=== PATIENT | female | born 1930 | race Caucasian/White ===

== ENCOUNTER 2017-03-06 09:42 | Inpatient (IN) | payer OTHER, MEDICARE ==
[~2017-03-06] VITALS: Ht 160 cm; Wt 68.1 kg
[~2017-03-06 09:42] MED LIST: ASPI81TA28 PO; CALC-51 PO; CITA20TA4 PO; DENO60SO SQ; INSU1INJ INJ; LEVE500T PO; LPR25 PO; LSN40 PO; MULT-506 PO; NRV5 PO; POLY335019 PO; POLY99.02 OP; SIMV20TA2 PO; VTMB12100 PO; ZOLP5TAB PO
[2017-03-06] MEDS ORDERED: LIDOCAINE/EPINEPH/TETRACAINE 1 EA SYR EXT STA (09:50)
[2017-03-06] MEDS ORDERED: SODIUM CHLORIDE 0.9% 1000ML 1,000 ML IV STA (09:50)
--- NOTE | 2017-03-06 09:52 | EMERGENCY ROOM VISIT NOTE ---
History Report prepared by Dori: Carlene Foote Under the Supervision of: Dr. Tomasz Ch D.O. First contact with patient: 09:43 Chief Complaint: HIP PAIN Stated Complaint: HIP INJURY History of Present Illness The patient is an 86 year old female who presents to the Emergency Room with complaints of constant pain from injury to right hip occurring 1 hour prior to arrival. The patient was taking the trash out and walking with her can when she fell in her garage. She states that she was laying on the ground for about 1 hour before her family found her. The patient states that she did hit her head. She notes no pain to her left leg but pain with rotating her right leg. The patient denies a headache, neck pain, back pain or abdominal pain. She was given Fentanyl and Zofran en route to the ED. 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 A total of 10 systems reviewed and were otherwise negative. Past Medical & Surgical Medical Problems: (1) Anxiety disorder (2) Cerebrovascular disease (3) CKD (chronic kidney disease) stage 3, GFR 30-59 ml/min (4) Depression (5) DM type 2 (diabetes mellitus, type 2) (6) Hip fracture, right (7) Hyperlipidemia (8) Hypertension (9) Osteoporosis (10) PVD (peripheral vascular disease) (11) Seizure disorder (12) Stroke-like symptom (13) Unresponsiveness Surgical Problems: (1) History of total hip replacement (2) Hx of cataract surgery (3) S/P tonsillectomy and adenoidectomy (4) Status post appendectomy (5) Status post cholecystectomy Family History FH: lung cancer BROTHER FH: stroke FATHER Oral cancer MOTHER Social History Smoking Status: Unknown if Ever Smoked Alcohol Use: none Drug Use: none Marital Status: Housing Status: lives with family Occupation Status: retired Current/Historical Medications Scheduled Amlodipine Besylate (Amlodipine Besylate), 5 MG PO DAILY Artificial Tears Oph Oint (Lacri-Lube Sop Oph Oint), 0.25-0.5 INCH OP QID Aspirin (Aspirin Ec), 81 MG PO DAILY Calcium Carbonate-Vitamin D (Calcium), 1 TAB PO BID Citalopram Hydrobromide (Citalopram Hydrobromide), 20 MG PO HS Cyanocobalamin (Vitamin B-12), 100 MCG PO DAILY Denosumab (Prolia), 60 MG SQ [id number] Insulin Aspart 70/30 (Novolog Mix 70/30), 14 UNITS SC QAM Insulin Aspart 70/30 (Novolog Mix 70/30), 8 UNITS SC QPM Levetiractam (Levetiracetam), 750 MG PO BID Lisinopril (Lisinopril), 5 MG PO DAILY Metoprolol Tartrate (Lopressor), 25 MG PO DAILY Multivitamin (Multivitamin), 1 TAB PO DAILY Simvastatin (Zocor), 20 MG PO QPM Scheduled PRN Polyethylene Glycol 3350 (Miralax), 17 GM PO BID PRN for Constipation Zolpidem Tartrate (Ambien), 5 MG PO HS PRN for Sleep Allergies Coded Allergies: Amoxicillin (Verified Allergy, Severe, CVA SYMPTOMS, 03/06/17) Penicillins (Unverified Allergy, Unknown, POSS CX OF CVA, 03/06/17) Risedronate (Unverified Allergy, Unknown, UNKNOWN, 03/06/17) Diphenhydramine (Unverified Adverse Reaction, Unknown, N&V, 03/06/17) Prednisone (Unverified Adverse Reaction, Unknown, HIGH BS, 03/06/17) Uncoded Allergies: TYRESE FACE CREAM (Allergy, Unknown, SEVERE REDNESS, 05/03/07) Physical Exam Vital Signs Date Time Temp Pulse Resp B/P Pulse Ox O2 Delivery O2 Flow Rate FiO2 03/06/17 13:33 63 17 122/74 93 03/06/17 12:31 63 17 122/74 93 Nasal Cannula 3.0 03/06/17 11:45 95 Nasal Cannula 2.0 03/06/17 10:49 58 15 155/59 95 Nasal Cannula 2.0 03/06/17 10:28 57 03/06/17 09:56 94 Nasal Cannula 3.0 03/06/17 09:50 36.5 58 19 173/72 88 Room Air Physical Exam GENERAL: Patient is awake, alert, somewhat anxious and uncomfortable appearing. EYES: The conjunctivae are clear. The pupils are constricted and minimally reactive to light. EARS, NOSE, MOUTH AND THROAT: The nose is without any evidence of any deformity. Mucous membranes are moist tongue is midline NECK: The neck is nontender and supple. RESPIRATORY: Normal respiratory effort is noted there is no evidence of wheezing rhonchi or rales CARDIOVASCULAR: Regular rate and rhythm noted there no murmurs rubs or gallops normal S1 normal S2 GASTROINTESTINAL: The abdomen is soft. Bowel sounds are present in all quadrants. Abdomen is nontender MUSCULOSKELETAL/EXTREMITIES: There is no evidence of gross deformity full range of motion is noted in the shoulders. Shortening of right lower extremity but significant decrease in movement of hip. SKIN: There is no obvious evidence of any rash. There are no petechiae, pallor or cyanosis noted. NEUROLOGIC: Patient is awake alert and oriented x3 Medical Decision & Procedures ER Provider Diagnostic Interpretation: X-ray results as stated below per interpretation by me and the radiologist. CHEST ONE VIEW PORTABLE CLINICAL HISTORY: Fall. COMPARISON STUDY: Chest radiograph May 24, 2016. FINDINGS: Severe degenerative changes of the right shoulder are noted. No pneumothorax or pleural effusion is present. Mild cardiomegaly is unchanged. There is no evidence of pulmonary edema. A moderate sized suspected hiatal hernia is present. Skin folds project over the right hemithorax. There is no evidence of pulmonary edema. Linear left midlung opacity suggest atelectasis. IMPRESSION: No acute cardiopulmonary findings. Electronically signed by: Tayo Arias M.D. 03/06/2017 10:56 AM Dictated Date/Time: 03/06/2017 10:55 AM RIGHT PELVIS/UNILATERAL HIP 2-3VIEWS CLINICAL HISTORY: Fall. Right hip injury. COMPARISON: Abdominal series November 30, 2016. FINDINGS: Alignment of the total left hip arthroplasty is anatomic. There is no periprosthetic fracture. There is a 6.5 x 4.4 cm heavily calcified abnormality within the pelvis which is unchanged since prior exam and likely reflects a calcified fibroid. Left inferior and superior pubic ring healed fractures are noted. There is an acute, comminuted displaced right femoral neck fracture. IMPRESSION: Acute displaced comminuted right femoral neck fracture. Electronically signed by: Tayo Arias M.D. 03/06/2017 10:54 AM Dictated Date/Time: 03/06/2017 10:53 AM Laboratory Results 03/06/17 10:15 Red Blood Count 4.43, Mean Corpuscular Volume 92.6, Mean Corpuscular Hemoglobin 31.4, Mean Corpuscular Hemoglobin Concent 33.9, Mean Platelet Volume 9.3, Neutrophils (%) (Auto) 78.2, Lymphocytes (%) (Auto) 13.8, Monocytes (%) (Auto) 5.2, Eosinophils (%) (Auto) 2.0, Basophils (%) (Auto) 0.2, Neutrophils # (Auto) 12.91, Lymphocytes # (Auto) 2.28, Monocytes # (Auto) 0.86, Eosinophils # (Auto) 0.33, Basophils # (Auto) 0.04 03/06/17 10:15 Test 03/06/17 10:00 03/06/17 10:15 03/06/17 13:33 Urine Color YELLOW Urine Appearance CLEAR (CLEAR) Urine pH 8.0 (4.5-7.5) Urine Specific [place] 1.013 (1.000-1.030) Urine Protein 2+ (NEG) Urine Glucose (UA) NEG (NEG) Urine Ketones NEG (NEG) Urine Occult Blood TRACE (NEG) Urine Nitrite NEG (NEG) Urine Bilirubin NEG (NEG) Urine Urobilinogen NEG (NEG) Urine Leukocyte Esterase NEG (NEG) Urine WBC (Auto) 0 /hpf (0-5) Urine RBC (Auto) 0-4 /hpf (0-4) Urine Hyaline Casts (Auto) 1-5 /lpf (0-5) Urine Epithelial Cells (Auto) 10-20 /lpf (0-5) Urine Bacteria (Auto) NEG (NEG) White Blood Count 16.52 K/uL (4.8-10.8) Red Blood Count 4.43 M/uL (4.2-5.4) Hemoglobin 13.9 g/dL (12.0-16.0) Hematocrit 41.0 % (37-47) Mean Corpuscular Volume 92.6 fL (80-100) Mean Corpuscular Hemoglobin 31.4 pg (25-34) Mean Corpuscular Hemoglobin Concent 33.9 g/dl (32-36) Platelet Count 242 K/uL (130-400) Mean Platelet Volume 9.3 fL (7.4-10.4) Neutrophils (%) (Auto) 78.2 % Lymphocytes (%) (Auto) 13.8 % Monocytes (%) (Auto) 5.2 % Eosinophils (%) (Auto) 2.0 % Basophils (%) (Auto) 0.2 % Neutrophils # (Auto) 12.91 K/uL (1.4-6.5) Lymphocytes # (Auto) 2.28 K/uL (1.2-3.4) Monocytes # (Auto) 0.86 K/uL (0.11-0.59) Eosinophils # (Auto) 0.33 K/uL (0-0.5) Basophils # (Auto) 0.04 K/uL (0-0.2) RDW Standard Deviation 46.0 fL (36.4-46.3) RDW Coefficient of Variation 13.5 % (11.5-14.5) Immature Granulocyte % (Auto) 0.6 % Immature Granulocyte # (Auto) 0.10 K/uL (0.00-0.02) Prothrombin Time 10.5 SECONDS (9.0-12.0) Prothromb Time International Ratio 1.0 (0.9-1.1) Activated Partial Thromboplast Time 23.2 SECONDS (21.0-31.0) Partial Thromboplastin Ratio 0.9 Anion Gap 5.0 mmol/L (3-11) Est Creatinine Clear Calc Drug Dose 33.4 ml/min Estimated GFR () 52.3 Estimated GFR (Non- 45.1 BUN/Creatinine Ratio 22.8 (10-20) Calcium Level 8.1 mg/dl (8.5-10.1) Total Bilirubin 0.7 mg/dl (0.2-1) Direct Bilirubin 0.2 mg/dl (0-0.2) Aspartate Amino Transf (AST/SGOT) 25 U/L (15-37) Alanine Aminotransferase (ALT/SGPT) 21 U/L (12-78) Alkaline Phosphatase 72 U/L (45-117) Troponin I < 0.015 ng/ml (0-0.045) Total Protein 6.9 gm/dl (6.4-8.2) Albumin 3.4 gm/dl (3.4-5.0) Laboratory results per my review. Medications Administered Medications (Trade) Dose Ordered Sig/Zaina Route Start Time Stop Time Status Last Admin Dose Admin Sodium Chloride (Nss 1000ml) 1,000 ml @ 125 mls/hr Q8H STAT IV 03/06/17 09:50 03/06/17 17:49 03/06/17 10:13 125 MLS/HR Fentanyl Citrate (Fentanyl Inj) 50 mcg Q15M PRN IV 03/06/17 10:00 03/20/17 09:59 03/06/17 12:37 50 MCG Tetracaine/ Epinephrine/ Lidocaine (L.e.t. Gel 4%/ 1:100/0.5%) 1 ea UD STAT EXT 03/06/17 09:50 03/06/17 09:53 DC 03/06/17 10:16 1 EA Diphtheria/ Pertussis/Tetanus Vacc 0.5 ml 0.5 ml ONCE ONCE IM. 03/06/17 10:00 03/06/17 10:01 DC 03/06/17 10:48 0.5 ML Doxycycline Hyclate/Dextrose (Vibramycin IV/ D5 100ml) 110 ml @ 50 mls/hr 1230 ONCE IV 03/06/17 12:30 03/06/17 14:41 03/06/17 12:31 50 MLS/HR ECG Indication: other (fall) Rate (beats per minute): 58 Rhythm: sinus bradycardia Findings: nonspecific-ST abn, no ectopy Change: Decreased rate otherwise no change since May ED Course 0946: The patient was evaluated in room B8. A complete history and physical examination were performed. 0950: L.e.t Gel 4% 1:100/0.5% 1 ea EXT, Sodium Chloride 1,000 ml @ 125 mls/hr IV. 1000: Adacel Inj 0.5 ml IM, Fentanyl Inj 50 mcg IV. 1039: I spoke with the patient's [id number]. 1048: I discussed the patient's case with GRACE Lees - [facility]. The patient will be evaluated for further management. 1053: Upon reevaluation, the patient is hemodynamically stable. I discussed results and treatment plan with her. She verbalizes agreement and understanding. I spoke with GRACE Lees of the [facility]. The patient will be evaluated for further management and care. Medical Decision Differential diagnosis: Etiologies such as fracture, dislocation, intra-abdominal, pneumothorax, intrathoracic , intracranial, neurologic, as well as other traumatic pathologies were entertained. Nursing notes reviewed. Additional history is obtained from the prehospital personnel. The patient is an 86-year-old female who states that she was going into her garage with her cane to take out her garbage when she fell landing on her right side. The patient sustained a skin tear to her right hand as well as an injury to her right hip. The patient's x-rays did reveal signs of a displaced right femoral neck fracture. The patient was treated with IV pain medication in the emergency department. She was feeling much better on subsequent reevaluation. I discussed the patient's laboratory and radiographic studies with her and her family members. I also discussed her case with the on-call [facility] hospitalist service. They've agreed to evaluate the patient in the emergency department for further management and disposition. The patient was found have some degree of bradycardia on EKG. There was no definite syncopal episode but she may require further medical clearance prior to operative management. Consults Time Called: 1047 Consulting Physician: OMARI Lees Returned Call: [phone] I discussed the patient's case with GRACE Lees. The patient will be evaluated for further management. Impression Primary Impression: Fall Additional Impressions: right comminuted femoral neck fracture Skin tear of right hand without complication Bradycardia Scribe Attestation The scribe's documentation has been prepared under my direction and personally reviewed by me in its entirety. I confirm that the note above accurately reflects all work, treatment, procedures, and medical decision making performed by me. Departure Information Dispostion Being Evaluated By Hospitalist Prescriptions Metoprolol Tartrate (LOPRESSOR) 25 Mg Tab 25 MG PO DAILY, #60 TAB Prov: Marie Morgan PA-C 03/06/17 Amlodipine Besylate (Amlodipine Besylate) 5 Mg Tab 5 MG PO DAILY, #30 TAB Prov: Marie Morgan PA-C 03/06/17 Referrals Molly Goldstein M.D. (PCP) Problem Qualifiers Primary Impression: Fall Encounter type: initial encounter Qualified Codes: W19.XXXA - Unspecified fall, initial encounter Additional Impressions: Skin tear of right hand without complication Encounter type: initial encounter Qualified Codes: S61.411A - Laceration without foreign body of right hand, initial encounter
[2017-03-06] MEDS ORDERED: DIPHTHERIA/TETANUS/PERTUSSIS 0.5 ML SYR/VIAL IM. ONE (10:00)
[2017-03-06] MEDS: FENTANYL CITRATE INJ 50 MCG/1 ML 2 ML VIAL IV PRN ×3 (10:11→12:37)
[2017-03-06 10:27] LABS: BASO % 0.2 %; BASO ABS # 0.04 K/uL (0-0.2); COMPLETE YES; IG% 0.6 %; LYMPH % 13.8 %; LYMPH ABS # 2.28 K/uL (1.2-3.4); MEAN CELL VOLUME 92.6 fL (80-100); MEAN CORPUSCULAR HEMOGLOBIN 31.4 pg (25-34); MEAN CORPUSCULAR HGB CONC 33.9 g/dl (32-36); MEAN PLATELET VOLUME 9.3 fL (7.4-10.4); MONO % 5.2 %; NEUT % 78.2 %; PLATELET COUNT 242 K/uL (130-400); RED BLOOD COUNT 4.43 M/uL (4.2-5.4); WHITE BLOOD COUNT 16.52 K/uL (4.8-10.8)
[2017-03-06 10:30] LABS: URINE APPEARANCE CLEAR (CLEAR); URINE BILIRUBIN NEG (NEG); URINE COLOR YELLOW; URINE NITRITE NEG (NEG); URINE SPECIFIC GRAVITY 1.013 (1.000-1.030); UROBILINOGEN NEG (NEG); ZZURINE CULT IF INDIC CATH NO
[2017-03-06 10:43] LABS: ALT/SGPT 21 U/L (12-78); AST/SGOT 25 U/L (15-37); BLOOD UREA NITROGEN 25 mg/dl (7-18); BUN/CREATININE RATIO 22.8 (10-20); CALCIUM 8.1 mg/dl (8.5-10.1); CARBON DIOXIDE 30 mmol/L (21-32); CHLORIDE 103 mmol/L (98-107); GLUCOSE 219 mg/dl (70-99); POTASSIUM 4.4 mmol/L (3.5-5.1); SODIUM 138 mmol/L (136-145)
[2017-03-06 10:46] LABS: MANUAL MICROSCOPIC REQUIRED? NO; REVIEW REQ? NO
[2017-03-06 10:47] LABS: PARTIAL THROMBOPLASTIN RATIO 0.9; PROTHROMBIN TIME (PATIENT) 10.5 SECONDS (9.0-12.0)
[2017-03-06 10:47] LABS: SULFASALICYLIC ACID POS (NEG)
[2017-03-06 10:48] LABS: ALKALINE PHOSPHATASE 72 U/L (45-117)
--- NOTE | 2017-03-06 10:56 | DIAGNOSTIC IMAGING REPORT ---
RIGHT PELVIS/UNILATERAL HIP 2-3VIEWS CLINICAL HISTORY: Fall. Right hip injury. COMPARISON: Abdominal series November 30, 2016. FINDINGS: Alignment of the total left hip arthroplasty is anatomic. There is no periprosthetic fracture. There is a 6.5 x 4.4 cm heavily calcified abnormality within the pelvis which is unchanged since prior exam and likely reflects a calcified fibroid. Left inferior and superior pubic ring healed fractures are noted. There is an acute, comminuted displaced right femoral neck fracture. IMPRESSION: Acute displaced comminuted right femoral neck fracture. Electronically signed by: Tayo Arias M.D. 03/06/2017 10:54 AM Dictated Date/Time: 03/06/2017 10:53 AM
--- NOTE | 2017-03-06 10:58 | DIAGNOSTIC IMAGING REPORT ---
CHEST ONE VIEW PORTABLE CLINICAL HISTORY: Fall. COMPARISON STUDY: Chest radiograph May 24, 2016. FINDINGS: Severe degenerative changes of the right shoulder are noted. No pneumothorax or pleural effusion is present. Mild cardiomegaly is unchanged. There is no evidence of pulmonary edema. A moderate sized suspected hiatal hernia is present. Skin folds project over the right hemithorax. There is no evidence of pulmonary edema. Linear left midlung opacity suggest atelectasis. IMPRESSION: No acute cardiopulmonary findings. Electronically signed by: Tayo Arias M.D. 03/06/2017 10:56 AM Dictated Date/Time: 03/06/2017 10:55 AM
[2017-03-06] MEDS ORDERED: ARTIOIN OP (11:03)
[2017-03-06] MEDS ORDERED: LANCETS (11:03)
[2017-03-06] MEDS ORDERED: DENO60SO (11:03)
[2017-03-06] MEDS ORDERED: [UNRECOGNIZED DRUG - SUPPLY] (11:03)
[2017-03-06 11:45] VITALS: O2SAT 95; Ht 160 cm; Wt 68.1 kg
[2017-03-06] MEDS ORDERED: D5W AND NSS 1,000 ML IV SCH (12:03)
[2017-03-06] MEDS ORDERED: MAGNESIUM HYDROXIDE SUSP 30 ML UDC PO PRN (12:15)
[2017-03-06] MEDS ORDERED: NALOXONE HCL 0.4 MG/1 ML VIAL/CARP IV PRN (12:15)
[2017-03-06] MEDS ORDERED: BISACODYL 10 MG SUPP PR PRN (12:15)
[2017-03-06] MEDS ORDERED: ONDANSETRON INJ 2 MG/ML 2 ML VIAL IV PRN (12:15)
[2017-03-06] MEDS ORDERED: SOD PHOSPHATE/SOD BIPHOSPHATE ENEMA 132 ML BTL PR PRN (12:15)
[2017-03-06] MEDS ORDERED: DOXYCYCLINE IV 100 MG in DEXTROSE 5% 100ML 100 ML IV ONE (12:30)
[2017-03-06] MEDS ORDERED: GLUCOSE 40% GEL 15 GM TUBE PO PRN (12:45)
[2017-03-06] MEDS ORDERED: GLUCOSE 10 TABS/TUBE PO PRN (12:45)
[2017-03-06] MEDS ORDERED: ACETAMINOPHEN 325 MG TAB PO PRN (12:45)
[2017-03-06] MEDS ORDERED: ARTIFICIAL TEARS OP OINT 3.5 GM TUBE OP PRN (12:45)
[2017-03-06] MEDS ORDERED: GLUCAGON FOR INJ 1 MG VIAL SQ PRN (12:45)
[2017-03-06] MEDS ORDERED: DEXTROSE 50% 50 ML SYR IV PRN (12:45)
[2017-03-06] MEDS ORDERED: NVLGI7030 SC ×2 (12:51)
[2017-03-06] MEDS ORDERED: LPR25 PO (12:51)
[2017-03-06] MEDS ORDERED: LSN5 PO (12:51)
[2017-03-06] MEDS ORDERED: NRV5 PO (12:51)
[2017-03-06 13:50] VITALS: BP 150/69; PULSE 64; TEMP 36.4; O2SAT 95
[2017-03-06] MEDS ORDERED: CHOL1000 PO (14:17)
--- NOTE | 2017-03-06 14:21 | History and Physical ---
History & Physical Date & Time of Service: March 06, 2017 at 12:54 Chief Complaint: Hip Injury Primary Care Physician: Molly Goldstein M.D. History of Present Illness Source: patient, family (daughter in law at bedside), clinic records, hospital records This is an 86 year old female with PMH of seizure disorder, hx CVA without residual deficit, DM type 2, hypertension, CKD stage III, and other problems listed below who presents to the ED with right hip pain s/p fall. Patient states this morning she set her cane down and was taking the garbage out in her garage when she lost her balance and fell onto her right hip. She was unable to move due to R hip pain. She is unsure if there was any head trauma. No dizziness or LOC. She sustained a skin tear to the left hand which is non- painful. No other injury. Patient reports being down for approximately 1 hour. Her daughter in law phoned and when there was no answer, went to the patient's home, found her down, and called 911. Patient received Fentanyl en route and in the ER. Pain is currently controlled. Patient's chronic balance difficulty has been stable. No recent seizures. She reports cough with yellow sputum for several months. Pt reports cough worsened recently which she attributes to allergies. She reports itchy eyes, sinus congestion, and postnasal drip. Patient reports being evaluated by ENT Dr. Carrasco and was told cough was related to allergies. She was also evaluated by Dr. Goldstein for the cough on 02/01/17. No abx were prescribed. Patient also reports MORTON with ambulating which is stable x 1 year. 2 pillow orthopnea also stable. Has not climbed a flight of stairs recently. No home O2 use. Pt denies fever, chills, sore throat, ear ache , chest pain, SOB at rest, abdominal pain, N/V/D, dysuria, frequency, edema, weight gain, abnormal bleeding/ bruising, vision change, focal numbness or weakness. Denies hx of CAD or lung disease. Prior echo 05/2016 showed moderate concentric LVH, sigmoid septum, EF 60-65%, moderate AV calcification, mild AV stenosis, mild mitral annular calcification, grade I diastolic dysfunction. Patient has had L hip surgery by Dr. Murillo in the past. Past Medical/Surgical History Medical Problems: (1) Anxiety disorder Status: Chronic (2) Cerebrovascular disease Permanent Comment: s/p stroke without significant residual Status: Chronic (3) CKD (chronic kidney disease) stage 3, GFR 30-59 ml/min Status: Chronic (4) Depression Status: Chronic (5) DM type 2 (diabetes mellitus, type 2) Status: Chronic (6) DM type 2 (diabetes mellitus, type 2) Status: Chronic (7) Hyperlipidemia Status: Chronic (8) Hypertension Status: Chronic (9) Osteoporosis Status: Chronic (10) PVD (peripheral vascular disease) Status: Chronic (11) Seizure disorder Status: Chronic Surgical Problems: (1) History of total hip replacement Status: Chronic (2) Hx of cataract surgery Status: Resolved (3) S/P tonsillectomy and adenoidectomy Status: Chronic (4) Status post appendectomy Status: Resolved (5) Status post cholecystectomy Status: Resolved Family History FH: lung cancer BROTHER FH: stroke FATHER Oral cancer MOTHER Social History Smoking Status: Never Smoker Alcohol Use: none Marital Status: Housing status: lives alone Occupational Status: retired Immunizations History of Influenza Vaccine: Yes Influenza Vaccine Date: Jul 15, 2013 History of Tetanus Vaccine?: Yes History of Pneumococcal: Yes Pneumococcal Date: Sep 05, 2002 History of Hepatitis B Vaccine: No Multi-Drug Resistant Organisms History of MDRO: No Allergies Coded Allergies: Amoxicillin (Verified Allergy, Severe, CVA SYMPTOMS, 03/06/17) Penicillins (Unverified Allergy, Unknown, POSS CX OF CVA, 03/06/17) Risedronate (Unverified Allergy, Unknown, UNKNOWN, 03/06/17) Diphenhydramine (Unverified Adverse Reaction, Unknown, N&V, 03/06/17) Prednisone (Unverified Adverse Reaction, Unknown, HIGH BS, 03/06/17) Uncoded Allergies: TYRESE FACE CREAM (Allergy, Unknown, SEVERE REDNESS, 05/03/07) Home Medications Scheduled Amlodipine Besylate (Amlodipine Besylate), 5 MG PO DAILY Artificial Tears Oph Oint (Lacri-Lube Sop Oph Oint), 0.25-0.5 INCH OP QID Aspirin (Aspirin Ec), 81 MG PO DAILY Calcium Carbonate-Vitamin D (Calcium), 1 TAB PO BID Cholecalciferol (Vitamin D3), 1 TAB PO DAILY Citalopram Hydrobromide (Citalopram Hydrobromide), 20 MG PO HS Cyanocobalamin (Vitamin B-12), 100 MCG PO DAILY Denosumab (Prolia), 60 MG SQ [id number] Insulin Aspart 70/30 (Novolog Mix 70/30), 14 UNITS SC QAM Insulin Aspart 70/30 (Novolog Mix 70/30), 8 UNITS SC QPM Levetiractam (Levetiracetam), 750 MG PO BID Lisinopril (Lisinopril), 5 MG PO DAILY Metoprolol Tartrate (Lopressor), 25 MG PO DAILY Multivitamin (Multivitamin), 1 TAB PO DAILY Simvastatin (Zocor), 20 MG PO QPM Scheduled PRN Polyethylene Glycol 3350 (Miralax), 17 GM PO BID PRN for Constipation Zolpidem Tartrate (Ambien), 5 MG PO HS PRN for Sleep Review of Systems Constitutional: No chills, No fever, No weight loss Eyes: + problem reported (itchy eyes), No worsening of vision ENT: + hearing loss (has hearing aid on right), + problem reported (postnasal drip, sinus congestion), No sore throat, No trouble swallowing Respiratory: + cough, + dyspnea on exertion, + sputum, No dyspnea at rest Cardiovascular: + orthopnea (2 pillow no change x 1 year ), No edema Abdomen: No diarrhea, No nausea, No pain, No vomiting Musculoskeletal: + joint pain (R hip) Genitourinary - Female: No dysuria, No urinary frequency Neurologic: + balance problems (chronic- no change from baseline. no other recent fall), No numbness/tingling, No problem reported (no AMS), No weakness Hematologic / Lymphatic: No abnormal bleeding/bruising Integumentary: + problem reported (skin tear R hand) Allergic / Immunologic: + seasonal allergies Physical Exam Vital Signs Date Time Temp Pulse Resp B/P Pulse Ox O2 Delivery O2 Flow Rate FiO2 03/06/17 12:31 63 17 122/74 93 Nasal Cannula 3.0 03/06/17 11:45 95 Nasal Cannula 2.0 03/06/17 10:49 58 15 155/59 95 Nasal Cannula 2.0 03/06/17 10:28 57 03/06/17 09:56 94 Nasal Cannula 3.0 03/06/17 09:50 36.5 58 19 173/72 88 Room Air General Appearance: WD/WN, no apparent distress Head: normocephalic, atraumatic Eyes: normal inspection, PERRL, EOMI, sclerae normal ENT: pharynx normal, + pertinent finding (right ear hearing aid, + cerumen occluding R ear canal. L TM normal. no nasal discharge. no sinus tenderness. ) Neck: supple Respiratory/Chest: lungs clear, normal breath sounds, no respiratory distress, no accessory muscle use Cardiovascular: regular rate, rhythm, no murmur Abdomen/GI: normal bowel sounds, non tender, soft Genitourinary - Female: + pertinent finding (krueegr draining clear yellow urine) Extremities/Musculoskelatal: no calf tenderness, normal capillary refill, no pedal edema, + pertinent finding (severe pain with right hip movement.) Neurologic/Psych: alert, normal mood/affect, oriented x 3, + pertinent finding (UE strength 5/5 bilat. RLE motor limited by pain. ankle flexion extension 5/5 bilat LE. ) Skin: + pertinent finding (ecchymosis scattered right forearm. right hand skin tear. soft mobile possible lipomatous mass on left upper chest- chronic per patient. mild erythema right hip lateral aspect and few small ecchymotic areas on anterior R thigh. ) Diagnostics Laboratory Results Results Past 24 Hours Test 03/06/17 10:00 03/06/17 10:15 03/06/17 12:34 Range/Units Urine Color YELLOW Urine Appearance CLEAR CLEAR Urine pH 8.0 4.5-7.5 Urine Specific [place] 1.013 1.000-1.030 Urine Protein 2+ NEG Urine Glucose (UA) NEG NEG Urine Ketones NEG NEG Urine Occult Blood TRACE NEG Urine Nitrite NEG NEG Urine Bilirubin NEG NEG Urine Urobilinogen NEG NEG Urine Leukocyte Esterase NEG NEG Urine WBC (Auto) 0 0-5 /hpf Urine RBC (Auto) 0-4 0-4 /hpf Urine Hyaline Casts (Auto) 1-5 0-5 /lpf Urine Epithelial Cells (Auto) 10-20 0-5 /lpf Urine Bacteria (Auto) NEG NEG White Blood Count 16.52 4.8-10.8 K/uL Red Blood Count 4.43 4.2-5.4 M/uL Hemoglobin 13.9 12.0-16.0 g/dL Hematocrit 41.0 37-47 % Mean Corpuscular Volume 92.6 80-100 fL Mean Corpuscular Hemoglobin 31.4 25-34 pg Mean Corpuscular Hemoglobin Concent 33.9 32-36 g/dl Platelet Count 242 130-400 K/uL Mean Platelet Volume 9.3 7.4-10.4 fL Neutrophils (%) (Auto) 78.2 % Lymphocytes (%) (Auto) 13.8 % Monocytes (%) (Auto) 5.2 % Eosinophils (%) (Auto) 2.0 % Basophils (%) (Auto) 0.2 % Neutrophils # (Auto) 12.91 1.4-6.5 K/uL Lymphocytes # (Auto) 2.28 1.2-3.4 K/uL Monocytes # (Auto) 0.86 0.11-0.59 K/uL Eosinophils # (Auto) 0.33 0-0.5 K/uL Basophils # (Auto) 0.04 0-0.2 K/uL RDW Standard Deviation 46.0 36.4-46.3 fL RDW Coefficient of Variation 13.5 11.5-14.5 % Immature Granulocyte % (Auto) 0.6 % Immature Granulocyte # (Auto) 0.10 0.00-0.02 K/uL Prothrombin Time 10.5 9.0-12.0 SECONDS Prothromb Time International Ratio 1.0 0.9-1.1 Activated Partial Thromboplast Time 23.2 21.0-31.0 SECONDS Partial Thromboplastin Ratio 0.9 Sodium Level 138 136-145 mmol/L Potassium Level 4.4 3.5-5.1 mmol/L Chloride Level 103 98-107 mmol/L Carbon Dioxide Level 30 21-32 mmol/L Anion Gap 5.0 3-11 mmol/L Blood Urea Nitrogen 25 7-18 mg/dl Creatinine 1.10 0.60-1.20 mg/dl Est Creatinine Clear Calc Drug Dose 33.4 ml/min Estimated GFR () 52.3 Estimated GFR (Non- 45.1 BUN/Creatinine Ratio 22.8 10-20 Random Glucose 219 70-99 mg/dl Calcium Level 8.1 8.5-10.1 mg/dl Total Bilirubin 0.7 0.2-1 mg/dl Direct Bilirubin 0.2 0-0.2 mg/dl Aspartate Amino Transf (AST/SGOT) 25 15-37 U/L Alanine Aminotransferase (ALT/SGPT) 21 12-78 U/L Alkaline Phosphatase 72 45-117 U/L Troponin I < 0.015 0-0.045 ng/ml Total Protein 6.9 6.4-8.2 gm/dl Albumin 3.4 3.4-5.0 gm/dl Diagnostic Radiology RIGHT PELVIS/UNILATERAL HIP 2-3VIEWS CLINICAL HISTORY: Fall. Right hip injury. COMPARISON: Abdominal series November 30, 2016. FINDINGS: Alignment of the total left hip arthroplasty is anatomic. There is no periprosthetic fracture. There is a 6.5 x 4.4 cm heavily calcified abnormality within the pelvis which is unchanged since prior exam and likely reflects a calcified fibroid. Left inferior and superior pubic ring healed fractures are noted. There is an acute, comminuted displaced right femoral neck fracture. IMPRESSION: Acute displaced comminuted right femoral neck fracture. CHEST ONE VIEW PORTABLE CLINICAL HISTORY: Fall. COMPARISON STUDY: Chest radiograph May 24, 2016. FINDINGS: Severe degenerative changes of the right shoulder are noted. No pneumothorax or pleural effusion is present. Mild cardiomegaly is unchanged. There is no evidence of pulmonary edema. A moderate sized suspected hiatal hernia is present. Skin folds project over the right hemithorax. There is no evidence of pulmonary edema. Linear left midlung opacity suggest atelectasis. IMPRESSION: No acute cardiopulmonary findings. EKG sinus bradycardia with occasional PAC, rate 58, no ST or T wave abnormality Impression Assessment and Plan RIGHT HIP FRACTURE S/p mechanical fall In setting of osteoporosis; on Calcium, Vit D, Prolia X-ray- acute displaced comminuted right femoral neck fracture Type and screen done IVF's, pain control with Dilaudid PRN EKG- no acute ischemic findings Functional status- has chronic MORTON with ambulation; has not climbed flight of stairs recently Prior echo 05/2016- moderate concentric LVH, sigmoid septum, EF 60-65%, moderate AV calcification, mild AV stenosis, mild mitral annular calcification, grade I diastolic dysfunction CXR- cardiomegaly, no sign of pulm edema Further cardiac testing will not affect decision to proceed for emergent surgery Anesthesiology evaluation requested for preop evaluation Consult ortho; case d/w Dr. Carson BARTH after midnight COUGH Had ENT eval Dr. Carrasco as outpatient, attributed to allergies Now presents with hypoxia to 88% on RA (not on home O2, sats stable on prior hospitalization), now saturating well on 2-3 liters NC WBC 16K with left shift Possible acute bronchitis, viral vs. bacterial CXR- no infiltrate Will place on empiric doxycycline CHRONIC MORTON Stable x 1 year; unclear etiology- differential includes cardiac etiology vs. deconditioning vs. other Prior echo 05/2016- moderate concentric LVH, sigmoid septum, EF 60-65%, moderate AV calcification, mild AV stenosis, mild mitral annular calcification, grade I diastolic dysfunction CXR- cardiomegaly, no sign of pulmonary edema No evidence ischemia on EKG HYPERTENSION BP initially elevated likely due to pain, now normotensive Continue metoprolol Reasonable to continue lisinopril and amlodipine w/ parameters perioperatively SEIZURE DISORDER Stable; no recent seizure activity Check Keppra level Continue Keppra DM TYPE 2 Recent A1c 6.8 in 12/2016 Hold Novolog 70/30 Basal Lantus and NovoLog sliding scale Monitor BSG AC HS CKD STAGE III Creat is stable from baseline Avoid nephrotoxins HX CVA WITHOUT RESIDUAL DEFICIT Stable, no focal neurological signs/ symptoms Hold aspirin due to need for procedure DEPRESSION Continue Celexa DYSLIPIDEMIA Continue statin HYPOCALCEMIA Ca is 8.1; corrected Ca is WNL at 8.6 On calcium supplement for osteoporosis DVT PROPHYLAXIS SCD's due to need for procedure CODE STATUS DNR per my discussion with the patient with daughter in law at bedside. Son Tyree is POA. DISPOSITION Lives alone Follows with Dr. Goldstein for primary care student services counselor consult for discharge planning Patient seen in collaboration with Dr. Vaughn. Please see his addendum. Advanced Directives Existing Living Will: No Existing Power of News Cameraman: Yes VTE Prophylaxis VTE Risk Assessment Done? Y/N: Yes Risk Level: Moderate Given or contraindicated: SCD's Note ATTENDING ADDENDUM Record reviewed. Patient interviewed and examined. Care coordinated with Marie Morgan PA-C. Please refer to her documentation for patient's history. 86 YO female with history of mild aortic stenosis, cerebrovascular disease, seizure disorder, DM, and other problems. Mechanical fall this morning while taking out the trash- no associated neuro or cardiac symptoms. Injured her right hip. Brought to ED where she was found to have right hip fracture. EXAM: General- uncomfortable VS- as noted Neck- no JVD Lungs- clear Heart- RRR, II/ sys murmur at base, no gallop Abdomen- + BS, soft, nontender Extremities- no pretibial edema or calf tenderness; right hip tenderness Neuro- alert, oriented DATA: Hgb 13.9 WBC 16,520 plts 242,000 BUN 25 creatinine 1.1. potassium 4.4 random glucose 219 Other lab studies as noted. CXR- no infiltrates or CHF. X-ray right hip- displaced comminuted right femoral neck fracture. EKG performed at 09:57 reviewed and demonstrated SB at 58 / minute, no acute ST or T-wave abnormalities. ASSESSMENT AND PLAN: RIGHT HIP FRACTURE Management per protocol. Consult Ortho and Anesthesia. COUGH Recent cough. No fever, but WBC elevated. No infiltrates on chest x-ray. Possible bronchitis. Rx with doxycycline. LEUKOCYTOSIS WBC 16,000. Urine does not appear to be infected. Possible bronchitis as discussed above. Possible demargination. Follow. AORTIC STENOSIS Mild per echo @ [facility] 05/25/16. CEREBROVASCULAR DISEASE No new neuro symptoms. Resume ASA postop. SEIZURE DISORDER No evidence of seizure today. Continue levetiracetam. DM TYPE 2 Lantus / Novolog per protocol. Check Hgb A1C. VTE PROPHYLAXIS SCD's preop. Postop management per Ortho. DISPOSITION To be determined. May need skilled care before returning home. Consult Case Management. Internal Medicine follow-up with Dr. Goldstein. Please refer to GRACE Morgan's documentation for discussion of other issues. Case discussed with Ortho and Anesthesiology. Joey Vaughn MD .
[2017-03-06] MEDS: HYDROmorphone INJ 1 MG/ML SYR IV PRN ×2 (14:31→18:09)
[2017-03-06] MEDS: SODIUM CHLORIDE 0.9% 1000ML 1,000 ML IV SCH (14:32)
[2017-03-06 15:17] VITALS: BP 153/75; PULSE 64; TEMP 36.4; O2SAT 94
[2017-03-06] MEDS: INSULIN ASPART 100 UNITS/ML 3 ML PEN SC SCH ×2 (18:42→20:55)
[2017-03-06 19:27] VITALS: O2SAT 96
[2017-03-06] MEDS: CITALOPRAM 20 MG TAB PO SCH (20:34)
[2017-03-06] MEDS: SIMVASTATIN 20 MG TAB PO SCH (20:35)
[2017-03-06] MEDS: DOCUSATE SODIUM/SENNA 50/8.6MG TAB PO SCH (20:35)
[2017-03-06] MEDS: LEVETIRACETAM 500 MG TAB PO SCH (20:36)
--- NOTE | 2017-03-06 20:36 | CONSULTATION REPORT ---
DATE OF CONSULTATION: 03/06/2017 REASON FOR CONSULT: Right hip fracture. HISTORY OF PRESENT ILLNESS: The patient is an 86-year-old white female known to our practice who this morning was outside ambulating and at one point she put her cane down to put the garbage in the garbage can and lost her balance and fell onto her right hip. She had immediate pain in the right hip and groin and was unable to get up and ambulate. She was brought to the Emergency Room and x-rays were taken and it was found that she had a displaced right femoral neck fracture. The [facility] admitted her for further care and we have been asked to take care of her fracture. PAST MEDICAL HISTORY: Anxiety, cerebrovascular disease, CKD stage III, depression, diabetes mellitus type 2, hyperlipidemia, hypertension, osteoporosis, peripheral vascular disease, seizure disorder, history of CVA without residual effects. PAST SURGICAL HISTORY: She had a left total hip arthroplasty which she states is approximately [address] Murillo, cataract surgery, tonsillectomy with adenoidectomy, appendectomy, and cholecystectomy. FAMILY AND SOCIAL HISTORY: As per admitting history and physical. MEDICATIONS: Amlodipine 5 mg p.o. daily, artificial tears OP q.i.d., aspirin 81 mg p.o. daily, calcium 1 tab p.o. b.i.d., vitamin D3 one tab p.o. daily, citalopram 20 mg p.o. at bedtime, vitamin B12 100 mcg p.o. daily, Prolia 60 mg subQ every 6 months, NovoLog insulin 70/30 14 units subQ q.a.m. and 8 units subQ q.p.m., Levetiracetam 750 mg p.o. b.i.d., lisinopril 5 mg p.o. daily, metoprolol 25 mg p.o. daily, multivitamin 1 tab p.o. daily, simvastatin 20 mg p.o. q.p.m., MiraLax 17 grams p.o. b.i.d. p.r.n. and Ambien 5 mg p.o. at bedtime p.r.n. ALLERGIES: AMOXICILLIN, PENICILLINS, RISEDRONATE, DIPHENHYDRAMINE, PREDNISONE, L'OREAL FACE CREAM. REVIEW OF SYSTEMS: As per admitting history and physical. PHYSICAL EXAMINATION: GENERAL: The patient is an elderly white female who appears her stated age. She is awake and alert and oriented to person and place. She is in no acute distress, pleasant and cooperative. Pain appears to be controlled at this time. SKIN: Warm and dry. Turgor is fair. EXTREMITIES: On looking at her right lower extremity, it is elevated on a pillow and is left in place. She states that it is comfortable at the position it is in; however, she does not like to try and move it because of pain in the groin area. She is able to move the right ankle and toes quite well and has good strength and she is nontender over the right knee but no range of motion done at this time due to hip fracture. The right lower extremity is shortened and externally rotated compared to the left. Left lower extremity is benign and has a well-healed scar over the left hip from previous AMILCAR and has good range of motion. Upper extremities have good range of motion. She is nontender on palpation of the shoulders, elbows and wrists, although she obtained a skin tear over the right hand today which was taken care of and now has a dressing. 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 NECK: Nontender on palpation and she has good range of motion. She denies thoracic or low back pain. NEUROLOGIC: No gross motor or sensory deficits seen at this time. The patient is alert and oriented to person and place. ASSESSMENT: Right displaced femoral neck fracture. PLAN: I spoke to Dr. Vaughn today about the patient and he would like to take 24 hours to optimize her for surgery. I have discussed with the patient that she will require either bipolar hemiarthroplasty versus a total hip arthroplasty which I will leave at the discretion of Dr. Luu and her. She has a history of living alone, but is a household ambulator and states she does go grocery shopping on occasion. We will make her n.p.o. after midnight and plan for her surgery tomorrow.
[2017-03-06] MEDS: CALCIUM 600MG + VIT D 400 IU TAB PO SCH (20:37)
[2017-03-06] MEDS: DOXYCYCLINE IV 100 MG in DEXTROSE 5% 100ML 100 ML IV SCH (20:43)
[2017-03-06] MEDS: INSULIN GLARGINE SOLOSTAR 100 UNITS/ML 3 ML PEN SC SCH (20:56)
[2017-03-06] MEDS: ZOLPIDEM TARTRATE 5 MG TAB PO PRN (21:56)
[2017-03-06 23:24] VITALS: BP 139/75; PULSE 65; TEMP 36.7; O2SAT 98
[2017-03-07] VITALS (8 sets, daily range): BP systolic 96–166; BP diastolic 56–82; PULSE 67–86; TEMP 36.4–36.9; O2SAT 95–98
[2017-03-07] MEDS: SODIUM CHLORIDE 0.9% 1000ML 1,000 ML IV SCH ×3 (00:50→17:20)
[2017-03-07] MEDS: HYDROmorphone INJ 1 MG/ML SYR IV PRN ×2 (01:00→09:07)
[2017-03-07] MEDS ORDERED: NURSING VERBAL MED ORDER ONE ×2 (01:30→13:15)
[2017-03-07] MEDS: INSULIN ASPART 100 UNITS/ML 3 ML PEN SC SCH ×3 (06:00→18:58)
[2017-03-07] MEDS ORDERED: CEFAZOLIN 2000 MG/60 ML D5W 60 ML IV SCH (06:00)
[2017-03-07] MEDS ORDERED: CLINDAMYCIN 600 MG/54 ML D5W IV SCH (06:00)
[2017-03-07] MEDS ORDERED: BUPIVACAINE 0.5 % 5 MG/1 ML PF 10ML VIAL ONE (08:21)
[2017-03-07 08:47] LABS: BASO % 0.2 %; BASO ABS # 0.02 K/uL (0-0.2); COMPLETE YES; IG% 0.2 %; LYMPH % 13.9 %; LYMPH ABS # 1.76 K/uL (1.2-3.4); MEAN CELL VOLUME 94.1 fL (80-100); MEAN CORPUSCULAR HEMOGLOBIN 31.4 pg (25-34); MEAN CORPUSCULAR HGB CONC 33.4 g/dl (32-36); MEAN PLATELET VOLUME 9.3 fL (7.4-10.4); MONO % 6.7 %; PLATELET COUNT 237 K/uL (130-400); RED BLOOD COUNT 4.04 M/uL (4.2-5.4); WHITE BLOOD COUNT 12.68 K/uL (4.8-10.8)
[2017-03-07 09:02] LABS: ESTIMATED AVERAGE GLUCOSE 154 mg/dl; HA1C FLAG Normal (Normal)
[2017-03-07 09:08] LABS: BUN/CREATININE RATIO 28.3 (10-20); CREATININE 1.2 mg/dl (0.60-1.20); POTASSIUM 4.4 mmol/L (3.5-5.1)
[2017-03-07] MEDS: MULTIVITAMIN TAB PO SCH (09:09)
[2017-03-07] MEDS: CYANOCOBALAMIN 100 MCG TAB (VIT B-12) PO SCH (09:09)
[2017-03-07] MEDS: CALCIUM 600MG + VIT D 400 IU TAB PO SCH ×2 (09:10→20:50)
[2017-03-07] MEDS: CHOLECALCIFEROL 1000 INTER.UNIT TAB PO SCH (09:10)
[2017-03-07] MEDS: LEVETIRACETAM 500 MG TAB PO SCH ×2 (09:11→20:50)
[2017-03-07] MEDS: METOPROLOL TARTRATE 25 MG TAB PO SCH (09:11)
[2017-03-07] MEDS: LISINOPRIL 5 MG TAB PO SCH (09:11)
[2017-03-07] MEDS: AMLODIPINE BESYLATE 5 MG TAB PO SCH (09:12)
[2017-03-07 09:13] LABS: CALCIUM 8.3 mg/dl (8.5-10.1)
--- NOTE | 2017-03-07 09:16 | Orthopedic Progress Note ---
Orthopedic Progress Note Date of Service March 07, 2017. Subjective Additional Notes: Pt states that she is starting to feel sore "all over" from the fall. No other new complaints. Objective calves soft nontender, N/V intact, toes mobile No change in exam with RLE. Date Time Temp Pulse Resp B/P Pulse Ox O2 Delivery O2 Flow Rate FiO2 03/07/17 07:08 36.4 73 16 166/82 97 Nasal Cannula 3.0 03/07/17 03:48 36.8 67 18 136/73 96 Nasal Cannula 4.0 03/07/17 00:40 Nasal Cannula 3.0 03/06/17 23:24 36.7 65 18 139/75 98 Nasal Cannula 3.0 03/06/17 19:27 96 Nasal Cannula 3.0 03/06/17 15:17 36.4 64 18 153/75 94 Nasal Cannula 3.0 03/06/17 15:00 Nasal Cannula 3.0 03/06/17 13:50 36.4 64 18 150/69 95 Nasal Cannula 3.0 03/06/17 13:50 Nasal Cannula 3.0 03/06/17 13:33 63 17 122/74 93 03/06/17 12:31 63 17 122/74 93 Nasal Cannula 3.0 03/06/17 11:45 95 Nasal Cannula 2.0 03/06/17 10:49 58 15 155/59 95 Nasal Cannula 2.0 03/06/17 10:28 57 03/06/17 09:56 94 Nasal Cannula 3.0 03/06/17 09:50 36.5 58 19 173/72 88 Room Air Laboratory Results 24 Hours: Test 03/06/17 10:15 03/07/17 08:13 White Blood Count 16.52 K/uL 12.68 K/uL Red Blood Count 4.43 M/uL 4.04 M/uL Hemoglobin 13.9 g/dL 12.7 g/dL Hematocrit 41.0 % 38.0 % Mean Corpuscular Volume 92.6 fL 94.1 fL Mean Corpuscular Hemoglobin 31.4 pg 31.4 pg Mean Corpuscular Hemoglobin Concent 33.9 g/dl 33.4 g/dl Platelet Count 242 K/uL 237 K/uL Mean Platelet Volume 9.3 fL 9.3 fL Neutrophils (%) (Auto) 78.2 % 77.0 % Lymphocytes (%) (Auto) 13.8 % 13.9 % Monocytes (%) (Auto) 5.2 % 6.7 % Eosinophils (%) (Auto) 2.0 % 2.0 % Basophils (%) (Auto) 0.2 % 0.2 % Neutrophils # (Auto) 12.91 K/uL 9.77 K/uL Lymphocytes # (Auto) 2.28 K/uL 1.76 K/uL Monocytes # (Auto) 0.86 K/uL 0.85 K/uL Eosinophils # (Auto) 0.33 K/uL 0.25 K/uL Basophils # (Auto) 0.04 K/uL 0.02 K/uL Prothromb Time International Ratio 1.0 Prothrombin Time 10.5 SECONDS Assessment & Plan Assessment: Right Displaced Femoral Neck FX Plan: Dr Luu discussed types of surgery with patient last night. Planning for OR today if ok with Med Service.
[2017-03-07] MEDS: INSULIN GLARGINE SOLOSTAR 100 UNITS/ML 3 ML PEN SC SCH ×2 (09:20→20:53)
[2017-03-07] MEDS: DOXYCYCLINE IV 100 MG in DEXTROSE 5% 100ML 100 ML IV SCH ×2 (09:23→20:46)
--- NOTE | 2017-03-07 09:59 | History & Physical Bridge Note ---
H&P Re-Evaluation Bridge Note: I have examined the patient, reviewed the History & Physical and in the interval since the performance of the History & Physical I have noted the following changes of clinical significance: No changes noted
[2017-03-07] MEDS ORDERED: POVIDONE-IODINE OP SOLN 30 ML BTL ONE (10:26)
[2017-03-07] MEDS ORDERED: BACITRACIN 50000 UNIT VIAL ONE (10:26)
[2017-03-07] MEDS ORDERED: MIDAZOLAM HCL 1 MG/ML 2ML VIAL ONE ×2 (10:30)
[2017-03-07] MEDS ORDERED: FENTANYL CITRATE INJ 50 MCG/1 ML 2 ML VIAL ONE ×2 (10:30→15:38)
--- NOTE | 2017-03-07 11:30 | Progress Note ---
Subjective Date of Service: March 07, 2017. Subjective Pt evaluation today including: conversation w/ patient, physical exam, lab review, review of studies, review of inpatient medication list Saw/examined the patient in room 379 No problems this morning; her hip pain is controlled with medications She states that she had a fall when she put her cane down and tried to get the garbage from the street - no dizziness, no loss of bowel/bladder function States she has had a bad productive cough for a few days prior to this event Denies chest pain/palpitations Problem List Medical Problems: (1) Altered mental status Status: Acute (2) Bradycardia Status: Acute (3) Expressive aphasia Status: Acute (4) Fall Status: Acute (5) Possible urinary tract infection Status: Acute (6) Receptive aphasia Status: Acute (7) Skin tear of right hand without complication Status: Acute Review of Systems Constitutional: No chills, No fever Respiratory: + cough, + dyspnea on exertion, + sputum, No dyspnea at rest, No hemoptysis, No shortness of breath, No wheezing Cardiac: No chest pain, No edema, No palpitations Abdomen: No diarrhea, No nausea, No pain, No vomiting Musculoskeletal: + joint pain (R hip, controlled with medications) Medications Current Inpatient Medications Medications (Trade) Dose Ordered Sig/Zaina Route Start Time Stop Time Status Last Admin Dose Admin Doxycycline Hyclate 100 mg/ Dextrose 110 ml @ 50 mls/hr BID IV 03/06/17 21:00 03/13/17 20:59 03/07/17 09:23 50 MLS/HR Cefazolin Sodium (Ancef 2000mg/60 ml D5W) 60 ml @ 120 mls/hr PREOP IV 03/07/17 06:00 03/07/17 18:00 Ondansetron HCl (Zofran Inj) 4 mg Q6H PRN IV 03/06/17 12:15 04/05/17 12:14 03/06/17 18:33 4 MG Hydromorphone HCl (Dilaudid Inj) 0.25 mg Q4H PRN IV 03/06/17 12:15 03/20/17 12:14 03/07/17 09:07 0.25 MG Naloxone HCl (Narcan Inj) 0.1 mg PRN PRN IV 03/06/17 12:15 04/05/17 12:14 Senna/Docusate Sodium (Senokot S Tab) 2 tab HS PO 03/06/17 21:00 04/05/17 20:59 03/06/17 20:35 2 TAB Polyethylene (Miralax Powder Packet) 17 gm DAILY PRN PO 03/06/17 12:15 04/05/17 12:14 Magnesium Hydroxide (Milk Of Magnesia Susp) 30 ml DAILY PRN PO 03/06/17 12:15 04/05/17 12:14 Bisacodyl (Dulcolax Supp) 10 mg DAILY PRN SD 03/06/17 12:15 04/05/17 12:14 Sodium Biphosphate/ Sodium Phosphate 132 ml 132 ml DAILY PRN SD 03/06/17 12:15 04/05/17 12:14 Sodium Chloride (Nss 1000ml) 1,000 ml @ 100 mls/hr Q10H IV 03/06/17 14:30 04/05/17 14:29 03/07/17 09:23 100 MLS/HR Acetaminophen (Tylenol Tab) 650 mg Q4H PRN PO 03/06/17 12:45 04/05/17 12:44 03/06/17 20:17 650 MG Insulin Glargine (Lantus Solostar Pen) 6 unit Q12 SC 03/06/17 21:00 04/05/17 20:59 03/07/17 09:20 6 UNIT Glucose (Glucose 40% Gel) 15-30 GRAMS 15 GRAMS... UD PRN PO 03/06/17 12:45 04/05/17 12:44 Glucose (Glucose Chew Tab) 4-8 Tablets 4 Tabl... UD PRN PO 03/06/17 12:45 04/05/17 12:44 Dextrose (Dextrose 50% 50ML Syringe) 25-50ML OF 50% DW IV FOR... UD PRN IV 03/06/17 12:45 04/05/17 12:44 Glucagon (Glucagon Inj) 1 mg UD PRN SQ 03/06/17 12:45 04/05/17 12:44 Amlodipine Besylate (Norvasc Tab) 5 mg DAILY PO 03/07/17 09:00 04/06/17 08:59 03/07/17 09:12 5 MG Artificial Tears (Lacri-Lube Oph Oint) 1 appln QID PRN OP 03/06/17 12:45 04/05/17 12:44 Citalopram Hydrobromide (celeXA TAB) 20 mg HS PO 03/06/17 21:00 04/05/17 20:59 03/06/17 20:34 20 MG Cyanocobalamin (Vitamin B-12 Tab) 100 mcg DAILY PO 03/07/17 09:00 04/06/17 08:59 03/07/17 09:09 100 MCG Levetiracetam (Keppra Tab) 750 mg BID PO 03/06/17 21:00 04/05/17 20:59 03/07/17 09:11 750 MG Metoprolol Tartrate (Lopressor Tab) 25 mg DAILY PO 03/07/17 09:00 04/06/17 08:59 03/07/17 09:11 25 MG Multivitamins (Multivitamin Tab) 1 tab DAILY PO 03/07/17 09:00 04/06/17 08:59 03/07/17 09:09 1 TAB Simvastatin (Zocor Tab) 20 mg QPM PO 03/06/17 21:00 04/05/17 20:59 03/06/17 20:35 20 MG Calcium/Vitamin D (Caltrate Plus Tab) 1 tab BID PO 03/06/17 21:00 04/05/17 20:59 03/07/17 09:10 1 TAB Lisinopril (Zestril Tab) 5 mg DAILY PO 03/07/17 09:00 04/06/17 08:59 03/07/17 09:11 5 MG Cholecalciferol (Vitamin D Tab) 1,000 inter.unit DAILY PO 03/07/17 09:00 04/06/17 08:59 03/07/17 09:10 1,000 INTER.UNIT Zolpidem Tartrate (Ambien Tab) 5 mg HS PRN PO 03/06/17 21:30 04/05/17 21:29 03/06/17 21:56 5 MG Insulin Aspart (novoLOG ASPART) SLIDING SCALE If C... Q6 SC 03/07/17 06:00 04/06/17 05:59 Objective Vital Signs Date Time Temp Pulse Resp B/P Pulse Ox O2 Delivery O2 Flow Rate FiO2 03/07/17 07:08 36.4 73 16 166/82 97 Nasal Cannula 3.0 03/07/17 03:48 36.8 67 18 136/73 96 Nasal Cannula 4.0 03/07/17 00:40 Nasal Cannula 3.0 03/06/17 23:24 36.7 65 18 139/75 98 Nasal Cannula 3.0 03/06/17 19:27 96 Nasal Cannula 3.0 03/06/17 15:17 36.4 64 18 153/75 94 Nasal Cannula 3.0 03/06/17 15:00 Nasal Cannula 3.0 03/06/17 13:50 36.4 64 18 150/69 95 Nasal Cannula 3.0 03/06/17 13:50 Nasal Cannula 3.0 03/06/17 13:33 63 17 122/74 93 03/06/17 12:31 63 17 122/74 93 Nasal Cannula 3.0 03/06/17 11:45 95 Nasal Cannula 2.0 Physical Exam General Appearance: + mild distress (secondary to pain) ENT: hearing grossly normal Respiratory/Chest: chest non-tender, lungs clear, normal breath sounds, no respiratory distress, no accessory muscle use Cardiovascular: regular rate, rhythm, no edema, no murmur Abdomen: normal bowel sounds, non tender, soft Extremities: normal inspection, no pedal edema, + pertinent finding (decreased/ painful ROM of the R LE) Neurologic/Psychiatric: no motor/sensory deficits, alert, normal mood/affect Laboratory Results Last 24 Hours Test 03/06/17 13:33 03/06/17 16:40 03/06/17 20:33 03/07/17 06:27 Bedside Glucose 209 mg/dl 249 mg/dl 123 mg/dl Test 03/07/17 08:07 03/07/17 08:13 Bedside Glucose 135 mg/dl White Blood Count 12.68 K/uL Red Blood Count 4.04 M/uL Hemoglobin 12.7 g/dL Hematocrit 38.0 % Mean Corpuscular Volume 94.1 fL Mean Corpuscular Hemoglobin 31.4 pg Mean Corpuscular Hemoglobin Concent 33.4 g/dl Platelet Count 237 K/uL Mean Platelet Volume 9.3 fL Neutrophils (%) (Auto) 77.0 % Lymphocytes (%) (Auto) 13.9 % Monocytes (%) (Auto) 6.7 % Eosinophils (%) (Auto) 2.0 % Basophils (%) (Auto) 0.2 % Neutrophils # (Auto) 9.77 K/uL Lymphocytes # (Auto) 1.76 K/uL Monocytes # (Auto) 0.85 K/uL Eosinophils # (Auto) 0.25 K/uL Basophils # (Auto) 0.02 K/uL RDW Standard Deviation 47.5 fL RDW Coefficient of Variation 13.7 % Immature Granulocyte % (Auto) 0.2 % Immature Granulocyte # (Auto) 0.03 K/uL Sodium Level 136 mmol/L Potassium Level 4.4 mmol/L Chloride Level 103 mmol/L Carbon Dioxide Level 27 mmol/L Anion Gap 6.0 mmol/L Blood Urea Nitrogen 34 mg/dl Creatinine 1.20 mg/dl Est Creatinine Clear Calc Drug Dose 30.6 ml/min Estimated GFR () 47.1 Estimated GFR (Non- 40.6 BUN/Creatinine Ratio 28.3 Random Glucose 132 mg/dl Estimated Average Glucose 154 mg/dl Hemoglobin A1c 7.0 % Calcium Level 8.3 mg/dl Assessment and Plan This is an 86 year old female with a PMH of seizure disorder, hx. of CVA, HTN, DM2, CKD stage 3, chronic allergic rhinitis vs. bronchitis, presents after a mechanical fall and found to have R hip fracture R Hip Fracture patient lives alone, uses cane for ambulation at baseline She started ambulating after putting her cane down and had what seems like a mechanical fall imagining performed showing an acute R femoral neck fracture pt. with osteoporosis at baseline - uses calcium + vitamin D + Prolia appreciate orthopedic input - plan for surgical intervention today (03/07) patient does have some dyspnea with exertion; seems like a chronic issue, she has been seeing ENT and her PCP for a chronic cough as well she may proceed with surgery currently, her pain is controlled; continue IV Dilaudid PRN for pain; further management as per ortho post-operatively Cough, possible Bronchitis has had ENT evaluation; possible allergies Her WBC elevated on presentation at 16k she was also hypoxic on admission started on doxycycline; WBC trending down to 12k today, she is not short of breath no coughing during my examination would continue abx. and O2 dinah-operatively Chronic Dyspnea on Exertion she states that she always feel short of breath with distances might be related to above - allergies vs. chronic bronchitis as noted in the H&P, echo was performed in 05/2016 - with mild AV stenosis, grade 1 diastolic dysfunction, with good LVEF will monitor, will need incentive spirometry to prevent atelectasis, early ambulation, etc. HTN periods of elevated blood pressure, likely related to pain overall, well controlled, can continue metoprolol, amlodipine, lisinopril Seizure Disorder last seizure in May of 2016 continue Keppra BID Hx. of CVA states in the early , she's had a CVA no residual deficits restart aspirin when okay with ortho DM2 fairly well controlled with Ha1c ~ 7.0 monitor for hypoglycemia with no PO intake today (03/07) continue Lantus and sliding scale will monitor for hyperglycemia post-operatively due to intra-operative steroid usage CKD stage 3 Creat is stable from baseline Avoid nephrotoxins Depression Continue Celexa HLD Continue statin DVT ppx SCDs DNR
[2017-03-07] MEDS ORDERED: ROCURONIUM BROMIDE 10 MG/ML 5 ML VIAL ONE (11:47)
[2017-03-07] MEDS ORDERED: ONDANSETRON INJ 2 MG/ML 2 ML VIAL ONE (11:47)
[2017-03-07] MEDS ORDERED: NEOSTIGMINE METHYLSULFATE 5 MG/5 ML SYR ONE (11:47)
[2017-03-07] MEDS ORDERED: LIDOCAINE HCL 2% 2 ML VIAL (20MG/ML) ONE (11:47)
[2017-03-07] MEDS ORDERED: PROPOFOL IV EMULSION 10 MG/ML 20 ML VIAL IV ONE (11:47)
[2017-03-07] MEDS ORDERED: GLYCOPYRROLATE INJ 0.2 MG/ML VIAL ONE (11:47)
[2017-03-07] MEDS ORDERED: ROPIVACAINE 5MG/ML 30 ML 150 MG, BUPIVACAINE/EPINEPHR 0.5% MPF 30 ML, KETOROLAC TROMETH... INFIL SCH ×7 (12:45)
[2017-03-07] MEDS ORDERED: BACITRACIN OINT 15 GM TUBE ONE (12:57)
[2017-03-07] MEDS ORDERED: ORTHO JOINT ANESTHETIC ONE (13:02)
[2017-03-07] MEDS ORDERED: CLINDAMYCIN 600 MG/54 ML D5W IV ONE (13:02)
[2017-03-07] MEDS ORDERED: ONDANSETRON INJ 2 MG/ML 2 ML VIAL IV PRN (14:00)
[2017-03-07] MEDS ORDERED: NALOXONE HCL 0.4 MG/1 ML VIAL/CARP IV PRN (14:00)
[2017-03-07] MEDS ORDERED: FENTANYL CITRATE INJ 50 MCG/1 ML 2 ML VIAL IV PRN (14:00)
[2017-03-07] MEDS ORDERED: ATROPINE SULFATE 0.1 MG/ML 5ML SYR IV PRN (14:00)
[2017-03-07] MEDS ORDERED: FLUMAZENIL 0.1 MG/1 ML 10 ML VIAL IV PRN (14:00)
[2017-03-07] MEDS ORDERED: PROMETHAZINE HCL INJ 12.5 MG in SODIUM CHLORIDE 0.9% 50ML 50 ML IV PRN (14:00)
[2017-03-07] MEDS ORDERED: LABETALOL HCL IV 5 MG/ML 20ML IV PRN (14:00)
[2017-03-07] MEDS ORDERED: EpHEDrine SULFATE INJ 50 MG/ML AMP IV PRN (14:00)
--- NOTE | 2017-03-07 16:03 | [facility] Operative Report ---
Operative Report Operative Date March 07, 2017. Pre-Operative Diagnosis Right hip fracture,garden 3 ,femoral neck with comminution and djd oa Post-Operative Diagnosis same Procedure(s) Performed right total hip replacement Surgeon Dr. Ephraim Luu Brick Sorter Surgeon(s) Gael Isaac PA-C Estimated Blood Loss 300 ML Findings as above djd acetabulum Specimens A. Right femoral head Drains 2 hemovac Anesthesia general and orthomix Complication(s) None Disposition Recovery Room / PACU Indications acute fx I attest to the content of the Intraoperative Record and any orders documented therein. Any exceptions are noted below.
[2017-03-07] MEDS ORDERED: TRAMADOL HCL 50 MG TAB PO PRN (16:15)
[2017-03-07] MEDS ORDERED: OXYCODONE HCL IR 5 MG TAB (IMMEDIATE RELEASE) PO PRN (16:15)
[2017-03-07 16:25] LABS: HEMATOCRIT 33.6 % (37-47)
--- NOTE | 2017-03-07 16:52 | Anesthesiology Progress Note ---
Anesthesia Post Op Note Date & Time March 07, 2017 at 16:53 Vital Signs Pain Intensity: 0 Vital Signs Past 12 Hours Date Time Temp Pulse Resp B/P Pulse Ox O2 Delivery O2 Flow Rate FiO2 03/07/17 16:46 119/55 03/07/17 16:43 77 16 95 03/07/17 16:43 77 16 03/07/17 16:42 110/55 03/07/17 16:38 76 16 95 03/07/17 16:38 76 16 03/07/17 16:37 122/59 03/07/17 16:33 75 15 03/07/17 16:33 75 15 100 03/07/17 16:32 76 16 03/07/17 16:32 76 16 98 03/07/17 16:31 113/57 03/07/17 16:27 79 14 03/07/17 16:27 79 14 98 03/07/17 16:26 109/50 03/07/17 16:22 80 16 101/38 98 03/07/17 16:22 80 16 03/07/17 16:21 81 13 03/07/17 16:21 81 13 115/52 97 03/07/17 16:16 83 14 03/07/17 16:16 83 14 115/51 97 03/07/17 16:11 84 14 03/07/17 16:11 84 14 117/54 96 03/07/17 16:07 117/50 03/07/17 16:06 87 23 03/07/17 16:06 36.0 88 16 117/50 96 Mask 10 03/07/17 16:06 88 23 96 03/07/17 08:00 Nasal Cannula 3.0 03/07/17 07:08 36.4 73 16 166/82 97 Nasal Cannula 3.0 Notes Mental Status: alert / awake / arousable, participated in evaluation Pt Amnestic to Procedure: Yes Nausea / Vomiting: adequately controlled Pain: adequately controlled Airway Patency, RR, SpO2: stable & adequate BP & HR: stable & adequate Hydration State: stable & adequate Anesthetic Complications: no major complications apparent
--- NOTE | 2017-03-07 16:57 | OPERATIVE REPORT ---
DATE OF OPERATION: 03/07/2017 INDICATION FOR PROCEDURE: The patient is an 86-year-old female. She had a fall and fractured her right hip. She has history of a left total hip replacement [address] Murillo[address] She says she is an active individual still. She likes to [place]. She goes to the grocery store by herself so she is not house bound. Her exam clearly shows the shortened and externally rotated right hip consistent with a femoral neck fracture. This is verified by x-rays demonstrate some comminution of the posterior lateral neck with a Garden 3 type fracture pattern. She has good cortexes in the femoral isthmus and shaft of the femur. She does have some degenerative arthritic changes in the hip joint with some narrowing of the hip joint space noted consistent with osteoarthritis. PREOPERATIVE DIAGNOSES: Garden 3 femoral neck fracture, right hip with some neck comminution and preexisting osteoarthritis, right hip joint. POSTOPERATIVE DIAGNOSIS: Same. PROCEDURE: Right total hip arthroplasty for fracture. SURGEON: Dr. Luu. DIE SINKING MACHINE OPERATOR: Gael Isaac PA-C. ANESTHESIA: General and local Orthomix block. OPERATION AND FINDINGS: OPERATIVE PROCEDURE: The patient was taken to the operating room, anesthetized under general anesthetic. She was placed supine on the operating room table. She was placed on a sacral pad. She was translated to the right side of the bed, so her right hip could be accessed at the side of the bed. We placed a foot roll to flex her knee 90 degrees and hip 60 degrees. The bed was placed in some Trendelenburg tilted to the left to help expose the right acetabulum and drain the pelvic veins. Her right hip was sterilely prepped and draped with ChloraPrep. The lateral Hardinge type approach was performed to the right hip. A longitudinal incision was made over the lateral right hip. Skin was incised sharply. Fat was divided down the fascia. The patient was on aspirin preoperatively so was some little more than typical oozing due to the aspirin. We did cauterize multiple bleeders in the fat layer. A small subcutaneous flaps were elevated up until we see the fascia. The fascia jason was divided longitudinally and the gluteus maddy fascia was split proximally. She had very thickened trochanteric bursa, which was resected. Gluteus medius was noted to be intact. The medius was split between its anterior 40% and posterior 60%. Medius was reflected off the minimus which was divided and reflected off the capsule underlying. The capsule was divided down to the hip joint and the hemarthrosis from the fracture was evacuated. There was some comminuted neck fragments that were removed at this time. Then, a curvilinear incision was made through the gluteus medius tendon leaving a cuff of tissue for repair on the greater trochanter and the vastus lateralis was split for about 3 cm. Muscular capsular flap was elevated off the fracture and hip joint. The hip was slightly flexed and adducted and externally rotated where I was able to see the fracture fragment easily. We grabbed it with a tenaculum and then freed up some of the capsule off the neck of the fractured femoral head and neck fragment and this was removed without difficulty. Then we measured the femoral head at about a 44 mm diameter. At this time, further exposure of the femoral neck was performed and then we used the Accolade II tapered stem for the procedure. Revised the neck cut to cut about 15 mm proximal to the lesser trochanter in neutral anteversion. This cleaned up the fracture fragments well with a good calcar remaining. All the comminuted fracture fragments and capsule were removed. Then, the acetabulum was exposed. We used blunt Hohmann retractor anteriorly, a sharp Hohmann superiorly, a double angled inferior ischial retractor. The acetabulum demonstrated some articular wear in the superior to posterior capsule. There was some superior medial osteophytes. The acetabular labrum was resected. Soft tissue in the acetabular fossa was resected. Anterior capsule was released for exposure. The acetabulum was fully exposed. I used a 42 mm reamer to medialize the reaming to the inner table then went up in sequential increments 2 mm up until we got to a 48, which had appropriate fit and fill. We then did a trial reduction and then went ahead and irrigated this out copiously and then placed in a 48 mm D Trident PSL cup from [employer]. There was excellent pressfit and 2 additional cancellous screws 6.5 x 25 and 20 mm were used in the posterior superior quadrant. Then we used the Trident X3 poly 36 mm D polyethylene insert which was impacted into position after we irrigated this out copiously with antibiotic solution. At this point, the pericapsular tissues were injected with Orthomix and we irrigated out more with antibiotic solution. Then went ahead and addressed the femur which was exposed by flexion and external rotation. The box osteotome and canal reamer used followed by sequential broaches up to a 5, which had good fit and fill. Then we did a trial reduction with a +0 neck length and there were equal leg lengths and full stability through full range of motion including flexion, adduction, internal rotation, adduction, external rotation with the hip extended with no instability at all. Soft tissue tension was satisfactory. The trial was removed after the hip was dislocated and then we irrigated out the canal copiously with antibiotic solution and bacitracin. I placed in the final stem, which was the tapered stem from [employer] Accolade II size 5, 127-degree neck angle. That had a tight pressfit and we went ahead and placed the +0 Biolox ceramic 36 mm head onto that. Then we reduced this to the acetabulum, assessed leg lengths to be equal and the hip was stable through full range of motion again. After copious irrigation went ahead again and injected the rest of the soft tissues with the Orthomix injection and then did a Betadine soak. I then placed transosseous #5 FiberWire sutures through the greater trochanter for repair of the abductors. Then we washed out the Betadine with the pulsatile lavage antibiotic solution with bacitracin. Then I repaired the gluteus minimus and capsule with [id number] #1 Vicryl sutures and then repaired the gluteus medius and minimus with the #5 FiberWire sutures using Virgilio-Fidel suture technique first. Then we did lateral row soft tissue fixation with [id number] #2 FiberWire and then the vastus lateralis was closed with a running #1 Vicryl and the split in the medius was closed with [id number] #1 Vicryl. A secure repair was noted. The fascia jason was closed with interrupted [id number] #1 Vicryl sutures. The subcutaneous tissues were closed with 2-0 Vicryl, skin closed with krissy. Sterile dressings applied and the patient tolerated the procedure well. We estimated blood loss about 300 mL. Gael Isaac PA-C was my welder first class. He functioned as welder first class for the entire procedure. He assisted in patient positioning, prepping, draping, leg positioning, soft tissue retraction during the procedure and performed the outer fascial closure and the subcutaneous skin closure and will participate in the postop care of the patient. I attest to the content of the Intraoperative Record and any orders documented therein. Any exceptio ns are noted below.
--- NOTE | 2017-03-07 17:00 | DIAGNOSTIC IMAGING REPORT ---
AP PELVIS, CROSSTABLE LATERAL RIGHT HIP History: Right total hip arthroplasty. Degenerative arthritis. Postop. FINDINGS: The patient is status post a right total hip arthroplasty. The hardware is intact. No fracture or dislocation. Skin krissy and surgical drains are in place. Evidence for prior left total hip arthroplasty. Old, healed left pubic ring fracture. Large calcification within the pelvis which measures 6.6 cm. This favors a fibroid. IMPRESSION: Right total hip arthroplasty. No evidence for hardware complication Electronically signed by: Mario Aragon M.D. 03/07/2017 4:59 PM Dictated Date/Time: 03/07/2017 4:58 PM
[2017-03-07] MEDS: CITALOPRAM 20 MG TAB PO SCH (20:51)
[2017-03-07] MEDS: SIMVASTATIN 20 MG TAB PO SCH (20:51)
[2017-03-07] MEDS: DOCUSATE SODIUM/SENNA 50/8.6MG TAB PO SCH (20:52)
[2017-03-07] MEDS: ASPIRIN 81 MG ECTAB PO SCH (21:28)
[2017-03-07] MEDS: ZOLPIDEM TARTRATE 5 MG TAB PO PRN (21:28)
[2017-03-07] MEDS: CLINDAMYCIN IV 600 MG in DEXTROSE 5% ADD-VANTAGE 50ML 50 ML IV SCH (21:56)
[2017-03-08] VITALS (9 sets, daily range): BP systolic 92–119; BP diastolic 53–70; PULSE 68–89; TEMP 36.5–37; O2SAT 87–96
[2017-03-08] MEDS: INSULIN ASPART 100 UNITS/ML 3 ML PEN SC SCH ×5 (00:55→21:10)
[2017-03-08] MEDS ORDERED: NURSING VERBAL MED ORDER ONE (02:30)
[2017-03-08] MEDS: SODIUM CHLORIDE 0.9% 1000ML 1,000 ML IV SCH ×3 (03:17→20:47)
[2017-03-08] MEDS: CLINDAMYCIN IV 600 MG in DEXTROSE 5% ADD-VANTAGE 50ML 50 ML IV SCH (05:51)
--- NOTE | 2017-03-08 07:55 | Orthopedic Progress Note ---
Orthopedic Progress Note Date of Service March 08, 2017. Subjective Post OP Day: 1 Reports: feeling well, pain controlled w PO medications, Denies: SOB, calf pain , chest pain, complaints, light headedness, nausea / vomiting Additional Notes: AM labs pending Objective calves soft nontender, N/V intact, hip located, capillary refill less than 2 sec., dressing C/D/I, A&O x3, toes mobile Date Time Temp Pulse Resp B/P Pulse Ox O2 Delivery O2 Flow Rate FiO2 03/08/17 07:10 37.0 89 18 113/70 96 Nasal Cannula 2.0 03/08/17 03:17 36.5 84 16 110/70 92 Nasal Cannula 2.0 03/08/17 00:50 Nasal Cannula 4.0 03/07/17 22:54 36.4 86 15 115/66 98 Nasal Cannula 4.0 03/07/17 19:24 36.5 77 16 102/56 97 Nasal Cannula 4.0 03/07/17 18:20 36.9 79 16 96/57 95 Nasal Cannula 4.0 03/07/17 17:50 36.4 74 18 100/58 95 Nasal Cannula 4.0 03/07/17 17:20 Nasal Cannula 4.0 03/07/17 17:20 98 Nasal Cannula 4.0 03/07/17 17:15 36.5 75 18 108/67 98 Nasal Cannula 4.0 03/07/17 17:03 73 96 03/07/17 17:03 73 03/07/17 17:01 109/51 03/07/17 16:58 76 19 96 03/07/17 16:58 76 19 03/07/17 16:56 106/52 03/07/17 16:53 76 17 96 03/07/17 16:53 36.3 03/07/17 16:53 76 17 03/07/17 16:52 76 19 03/07/17 16:52 76 19 96 03/07/17 16:51 109/52 03/07/17 16:47 76 21 95 03/07/17 16:47 75 21 03/07/17 16:46 119/55 03/07/17 16:43 77 16 95 03/07/17 16:43 77 16 03/07/17 16:42 110/55 03/07/17 16:38 76 16 95 03/07/17 16:38 76 16 03/07/17 16:37 122/59 03/07/17 16:33 75 15 03/07/17 16:33 75 15 100 03/07/17 16:32 76 16 03/07/17 16:32 76 16 98 03/07/17 16:31 113/57 03/07/17 16:27 79 14 03/07/17 16:27 79 14 98 03/07/17 16:26 109/50 03/07/17 16:22 80 16 101/38 98 03/07/17 16:22 80 16 03/07/17 16:21 81 13 03/07/17 16:21 81 13 115/52 97 03/07/17 16:16 83 14 03/07/17 16:16 83 14 115/51 97 03/07/17 16:11 84 14 03/07/17 16:11 84 14 117/54 96 03/07/17 16:07 117/50 03/07/17 16:06 87 23 03/07/17 16:06 36.0 88 16 117/50 96 Mask 10 03/07/17 16:06 88 23 96 03/07/17 08:00 Nasal Cannula 3.0 Laboratory Results 24 Hours: Test 03/07/17 08:13 03/07/17 16:13 03/08/17 04:44 White Blood Count 12.68 K/uL Red Blood Count 4.04 M/uL Hemoglobin 12.7 g/dL 10.7 g/dL Hematocrit 38.0 % 33.6 % Mean Corpuscular Volume 94.1 fL Mean Corpuscular Hemoglobin 31.4 pg Mean Corpuscular Hemoglobin Concent 33.4 g/dl Platelet Count 237 K/uL Mean Platelet Volume 9.3 fL Neutrophils (%) (Auto) 77.0 % Lymphocytes (%) (Auto) 13.9 % Monocytes (%) (Auto) 6.7 % Eosinophils (%) (Auto) 2.0 % Basophils (%) (Auto) 0.2 % Neutrophils # (Auto) 9.77 K/uL Lymphocytes # (Auto) 1.76 K/uL Monocytes # (Auto) 0.85 K/uL Eosinophils # (Auto) 0.25 K/uL Basophils # (Auto) 0.02 K/uL Assessment & Plan Assessment: POD #1 Rt AMILCAR, Right Displaced Femoral Neck FX Plan: PT/ OT DVT proph- ASA D/C planning- Rehab As per medicine Inhouse Planning Pain Management: Ultram, Dilaudid, PO Tylenol, Oxy IR DVT Prophylaxis: TEDs, SCDs, ASA Discharge Planning Discharge Planning: rehab hospital Pain Management: PO Tylenol, Oxy IR DVT Prophylaxis: TEDs, ASA Therapy: Physical Therapy, Occupational Therapy
[2017-03-08] MEDS ORDERED: COUGH DROP (SUGAR FREE) LOZ 24 LOZ/1 BOX ONE (08:14)
[2017-03-08] MEDS: DOXYCYCLINE IV 100 MG in DEXTROSE 5% 100ML 100 ML IV SCH ×2 (08:34→20:48)
[2017-03-08] MEDS: CALCIUM 600MG + VIT D 400 IU TAB PO SCH ×2 (08:35→20:52)
[2017-03-08] MEDS: ASPIRIN 81 MG ECTAB PO SCH ×2 (08:35→20:52)
[2017-03-08] MEDS: LEVETIRACETAM 500 MG TAB PO SCH ×2 (08:35→20:54)
[2017-03-08] MEDS: METOPROLOL TARTRATE 25 MG TAB PO SCH (08:36)
[2017-03-08] MEDS: MULTIVITAMIN TAB PO SCH (08:36)
[2017-03-08] MEDS: AMLODIPINE BESYLATE 5 MG TAB PO SCH (08:37)
[2017-03-08] MEDS: CHOLECALCIFEROL 1000 INTER.UNIT TAB PO SCH (08:37)
[2017-03-08] MEDS: CYANOCOBALAMIN 100 MCG TAB (VIT B-12) PO SCH (08:37)
[2017-03-08] MEDS: LISINOPRIL 5 MG TAB PO SCH (08:38)
[2017-03-08 08:45] LABS: BASO % 0.1 %; BASO ABS # 0.01 K/uL (0-0.2); COMPLETE YES; EOS % 0.2 %; HEMATOCRIT 29.5 % (37-47); IG% 0.2 %; LYMPH % 12.6 %; LYMPH ABS # 1.53 K/uL (1.2-3.4); MEAN CELL VOLUME 92.8 fL (80-100); MEAN CORPUSCULAR HEMOGLOBIN 29.9 pg (25-34); MEAN CORPUSCULAR HGB CONC 32.2 g/dl (32-36); MEAN PLATELET VOLUME 8.6 fL (7.4-10.4); MONO % 8.2 %; NEUT % 78.7 %; PLATELET COUNT 204 K/uL (130-400); RED BLOOD COUNT 3.18 M/uL (4.2-5.4); WHITE BLOOD COUNT 12.15 K/uL (4.8-10.8)
[2017-03-08] MEDS: INSULIN GLARGINE SOLOSTAR 100 UNITS/ML 3 ML PEN SC SCH ×2 (08:52→21:10)
[2017-03-08 09:13] LABS: BUN/CREATININE RATIO 29.1 (10-20); CREATININE 1.3 mg/dl (0.60-1.20); POTASSIUM 4.8 mmol/L (3.5-5.1)
[2017-03-08 09:14] LABS: CALCIUM 7.8 mg/dl (8.5-10.1)
--- NOTE | 2017-03-08 12:40 | Progress Note ---
Subjective Date of Service: March 08, 2017. Subjective Pt evaluation today including: conversation w/ patient, physical exam, lab review, review of studies, review of inpatient medication list Saw/examined the patient in room 379-2 Doing okay post-operatively, pain controlled with meds c/o epigastric pain, worse with palpation No nausea/vomiting, good PO intake SOB and productive cough improved Problem List Medical Problems: (1) Altered mental status Status: Acute (2) Bradycardia Status: Acute (3) Expressive aphasia Status: Acute (4) Fall Status: Acute (5) Possible urinary tract infection Status: Acute (6) Receptive aphasia Status: Acute (7) Skin tear of right hand without complication Status: Acute Review of Systems Respiratory: No cough, No dyspnea on exertion, No shortness of breath, No sputum, No wheezing Cardiac: No chest pain Abdomen: + pain (epigastric), No diarrhea, No nausea, No vomiting Medications Current Inpatient Medications Medications (Trade) Dose Ordered Sig/Zaina Route Start Time Stop Time Status Last Admin Dose Admin Doxycycline Hyclate/Dextrose (Vibramycin IV/ D5 100ml) 110 ml @ 50 mls/hr BID IV 03/06/17 21:00 03/13/17 20:59 03/08/17 08:34 50 MLS/HR Ondansetron HCl (Zofran Inj) 4 mg Q6H PRN IV 03/06/17 12:15 04/05/17 12:14 03/06/17 18:33 4 MG Hydromorphone HCl (Dilaudid Inj) 0.25 mg Q4H PRN IV 03/06/17 12:15 03/20/17 12:14 03/07/17 09:07 0.25 MG Naloxone HCl (Narcan Inj) 0.1 mg PRN PRN IV 03/06/17 12:15 04/05/17 12:14 Senna/Docusate Sodium (Senokot S Tab) 2 tab HS PO 03/06/17 21:00 04/05/17 20:59 03/07/17 20:52 2 TAB Polyethylene (Miralax Powder Packet) 17 gm DAILY PRN PO 03/06/17 12:15 04/05/17 12:14 Magnesium Hydroxide (Milk Of Magnesia Susp) 30 ml DAILY PRN PO 03/06/17 12:15 04/05/17 12:14 Bisacodyl (Dulcolax Supp) 10 mg DAILY PRN NC 03/06/17 12:15 04/05/17 12:14 Sodium Biphosphate/ Sodium Phosphate (Fleet Enema) 132 ml DAILY PRN NC 03/06/17 12:15 04/05/17 12:14 Acetaminophen (Tylenol Tab) 650 mg Q4H PRN PO 03/06/17 12:45 04/05/17 12:44 03/06/17 20:17 650 MG Insulin Glargine (Lantus Solostar Pen) 6 unit Q12 SC 03/06/17 21:00 04/05/17 20:59 03/08/17 08:52 6 UNIT Glucose (Glucose 40% Gel) 15-30 GRAMS 15 GRAMS... UD PRN PO 03/06/17 12:45 04/05/17 12:44 Glucose (Glucose Chew Tab) 4-8 Tablets 4 Tabl... UD PRN PO 03/06/17 12:45 04/05/17 12:44 Dextrose (Dextrose 50% 50ML Syringe) 25-50ML OF 50% DW IV FOR... UD PRN IV 03/06/17 12:45 04/05/17 12:44 Glucagon (Glucagon Inj) 1 mg UD PRN SQ 03/06/17 12:45 04/05/17 12:44 Amlodipine Besylate (Norvasc Tab) 5 mg DAILY PO 03/07/17 09:00 04/06/17 08:59 03/08/17 08:37 5 MG Artificial Tears (Lacri-Lube Oph Oint) 1 appln QID PRN OP 03/06/17 12:45 04/05/17 12:44 Citalopram Hydrobromide (celeXA TAB) 20 mg HS PO 03/06/17 21:00 04/05/17 20:59 03/07/17 20:51 20 MG Cyanocobalamin (Vitamin B-12 Tab) 100 mcg DAILY PO 03/07/17 09:00 04/06/17 08:59 03/08/17 08:37 100 MCG Levetiracetam (Keppra Tab) 750 mg BID PO 03/06/17 21:00 04/05/17 20:59 03/08/17 08:35 750 MG Metoprolol Tartrate (Lopressor Tab) 25 mg DAILY PO 03/07/17 09:00 04/06/17 08:59 03/08/17 08:36 25 MG Multivitamins (Multivitamin Tab) 1 tab DAILY PO 03/07/17 09:00 04/06/17 08:59 03/08/17 08:36 1 TAB Simvastatin (Zocor Tab) 20 mg QPM PO 03/06/17 21:00 04/05/17 20:59 03/07/17 20:51 20 MG Calcium/Vitamin D (Caltrate Plus Tab) 1 tab BID PO 03/06/17 21:00 04/05/17 20:59 03/08/17 08:35 1 TAB Lisinopril (Zestril Tab) 5 mg DAILY PO 03/07/17 09:00 04/06/17 08:59 03/08/17 08:38 5 MG Cholecalciferol (Vitamin D Tab) 1,000 inter.unit DAILY PO 03/07/17 09:00 04/06/17 08:59 03/08/17 08:37 1,000 INTER.UNIT Zolpidem Tartrate 5 mg 5 mg HS PRN PO 03/06/17 21:30 04/05/17 21:29 03/07/17 21:28 5 MG Sodium Chloride (Nss 1000ml) 1,000 ml @ 100 mls/hr Q10H IV 03/07/17 16:01 03/08/17 16:00 03/08/17 03:17 100 MLS/HR Oxycodone HCl (Roxicodone Immediate Rel Tab) 1 TABLET FOR PAIN RATING... Q4H PRN PO 03/07/17 16:15 03/21/17 16:14 Tramadol HCl (Ultram Tab) 1 TABLET FOR PAIN RATING... Q4H PRN PO 03/07/17 16:15 04/06/17 16:14 Aspirin (Ecotrin Tab) 81 mg BID PO 03/07/17 21:00 04/06/17 20:59 03/08/17 08:35 81 MG Insulin Aspart (novoLOG ASPART) SLIDING SCALE If C... ACHS SC 03/08/17 08:00 04/07/17 07:59 03/08/17 09:26 1 UNITS Objective Vital Signs Date Time Temp Pulse Resp B/P Pulse Ox O2 Delivery O2 Flow Rate FiO2 03/08/17 11:06 36.9 68 16 92/54 93 Room Air 03/08/17 10:34 70 95 03/08/17 08:35 89 119/70 03/08/17 07:10 37.0 89 18 113/70 96 Nasal Cannula 2.0 03/08/17 03:17 36.5 84 16 110/70 92 Nasal Cannula 2.0 03/08/17 00:50 Nasal Cannula 4.0 03/07/17 22:54 36.4 86 15 115/66 98 Nasal Cannula 4.0 03/07/17 19:24 36.5 77 16 102/56 97 Nasal Cannula 4.0 03/07/17 18:20 36.9 79 16 96/57 95 Nasal Cannula 4.0 03/07/17 17:50 36.4 74 18 100/58 95 Nasal Cannula 4.0 03/07/17 17:20 Nasal Cannula 4.0 03/07/17 17:20 98 Nasal Cannula 4.0 03/07/17 17:15 36.5 75 18 108/67 98 Nasal Cannula 4.0 03/07/17 17:03 73 96 03/07/17 17:03 73 03/07/17 17:01 109/51 03/07/17 16:58 76 19 96 03/07/17 16:58 76 19 03/07/17 16:56 106/52 03/07/17 16:53 76 17 96 03/07/17 16:53 36.3 03/07/17 16:53 76 17 03/07/17 16:52 76 19 03/07/17 16:52 76 19 96 03/07/17 16:51 109/52 03/07/17 16:47 76 21 95 03/07/17 16:47 75 21 03/07/17 16:46 119/55 03/07/17 16:43 77 16 95 03/07/17 16:43 77 16 03/07/17 16:42 110/55 03/07/17 16:38 76 16 95 03/07/17 16:38 76 16 03/07/17 16:37 122/59 03/07/17 16:33 75 15 03/07/17 16:33 75 15 100 03/07/17 16:32 76 16 03/07/17 16:32 76 16 98 03/07/17 16:31 113/57 03/07/17 16:27 79 14 03/07/17 16:27 79 14 98 03/07/17 16:26 109/50 03/07/17 16:22 80 16 101/38 98 03/07/17 16:22 80 16 03/07/17 16:21 81 13 03/07/17 16:21 81 13 115/52 97 03/07/17 16:16 83 14 03/07/17 16:16 83 14 115/51 97 03/07/17 16:11 84 14 03/07/17 16:11 84 14 117/54 96 03/07/17 16:07 117/50 03/07/17 16:06 87 23 03/07/17 16:06 36.0 88 16 117/50 96 Mask 10 03/07/17 16:06 88 23 96 Physical Exam General Appearance: no apparent distress Respiratory/Chest: chest non-tender, lungs clear, normal breath sounds, no respiratory distress, no accessory muscle use Cardiovascular: regular rate, rhythm, no edema, no murmur Abdomen: normal bowel sounds, soft, + tenderness (epigastric tenderness) Extremities: non-tender, normal inspection, no pedal edema Neurologic/Psychiatric: no motor/sensory deficits, alert, normal mood/affect Laboratory Results Last 24 Hours Test 03/07/17 16:13 03/07/17 17:18 03/07/17 20:11 03/08/17 00:17 Hemoglobin 10.7 g/dL Hematocrit 33.6 % Bedside Glucose 185 mg/dl 189 mg/dl 277 mg/dl 301 mg/dl Test 03/08/17 08:25 White Blood Count 12.15 K/uL Red Blood Count 3.18 M/uL Hemoglobin 9.5 g/dL Hematocrit 29.5 % Mean Corpuscular Volume 92.8 fL Mean Corpuscular Hemoglobin 29.9 pg Mean Corpuscular Hemoglobin Concent 32.2 g/dl Platelet Count 204 K/uL Mean Platelet Volume 8.6 fL Neutrophils (%) (Auto) 78.7 % Lymphocytes (%) (Auto) 12.6 % Monocytes (%) (Auto) 8.2 % Eosinophils (%) (Auto) 0.2 % Basophils (%) (Auto) 0.1 % Neutrophils # (Auto) 9.56 K/uL Lymphocytes # (Auto) 1.53 K/uL Monocytes # (Auto) 1.00 K/uL Eosinophils # (Auto) 0.02 K/uL Basophils # (Auto) 0.01 K/uL RDW Standard Deviation 47.4 fL RDW Coefficient of Variation 13.9 % Immature Granulocyte % (Auto) 0.2 % Immature Granulocyte # (Auto) 0.03 K/uL Sodium Level 133 mmol/L Potassium Level 4.8 mmol/L Chloride Level 101 mmol/L Carbon Dioxide Level 26 mmol/L Anion Gap 6.0 mmol/L Blood Urea Nitrogen 38 mg/dl Creatinine 1.30 mg/dl Est Creatinine Clear Calc Drug Dose 28.2 ml/min Estimated GFR () 42.7 Estimated GFR (Non- 36.9 BUN/Creatinine Ratio 29.1 Random Glucose 171 mg/dl Calcium Level 7.8 mg/dl Assessment and Plan This is an 86 year old female with a PMH of seizure disorder, hx. of CVA, HTN, DM2, CKD stage 3, chronic allergic rhinitis vs. bronchitis, presents after a mechanical fall and found to have R hip fracture R Hip Fracture 03/08 s/p AMILCAR, POD #1 doing well, pain controlled PT/OT plan for rehab 03/07 patient lives alone, uses cane for ambulation at baseline She started ambulating after putting her cane down and had what seems like a mechanical fall imagining performed showing an acute R femoral neck fracture pt. with osteoporosis at baseline - uses calcium + vitamin D + Prolia appreciate orthopedic input - plan for surgical intervention today (03/07) patient does have some dyspnea with exertion; seems like a chronic issue, she has been seeing ENT and her PCP for a chronic cough as well she may proceed with surgery currently, her pain is controlled; continue IV Dilaudid PRN for pain; further management as per ortho post-operatively Cough, possible Bronchitis 03/08 will continue Doxycycline x5 days 03/07 has had ENT evaluation; possible allergies Her WBC elevated on presentation at 16k she was also hypoxic on admission started on doxycycline; WBC trending down to 12k today, she is not short of breath no coughing during my examination would continue abx. and O2 dinah-operatively Chronic Dyspnea on Exertion she states that she always feel short of breath with distances might be related to above - allergies vs. chronic bronchitis as noted in the H&P, echo was performed in 05/2016 - with mild AV stenosis, grade 1 diastolic dysfunction, with good LVEF will monitor, will need incentive spirometry to prevent atelectasis, early ambulation, etc. HTN periods of elevated blood pressure, likely related to pain overall, well controlled, can continue metoprolol, amlodipine, lisinopril Seizure Disorder last seizure in May of 2016 continue Keppra BID Hx. of CVA states in the early , she's had a CVA no residual deficits restart aspirin when okay with ortho DM2 fairly well controlled with Ha1c ~ 7.0 monitor for hypoglycemia with no PO intake today (03/07) continue Lantus and sliding scale will monitor for hyperglycemia post-operatively due to intra-operative steroid usage CKD stage 3 Creat is stable from baseline Avoid nephrotoxins Depression Continue Celexa HLD Continue statin DVT ppx SCDs, ASA DNR
[2017-03-08] MEDS: POLYETHYLENE (MIRALAX) 17 GM PACK PO PRN (17:25)
[2017-03-08] MEDS: ZOLPIDEM TARTRATE 5 MG TAB PO PRN (20:51)
[2017-03-08] MEDS: DOCUSATE SODIUM/SENNA 50/8.6MG TAB PO SCH (20:53)
[2017-03-08] MEDS: CITALOPRAM 20 MG TAB PO SCH (20:53)
[2017-03-08] MEDS: SIMVASTATIN 20 MG TAB PO SCH (20:54)
[2017-03-09] VITALS (9 sets, daily range): BP systolic 146–180; BP diastolic 62–77; PULSE 75–99; TEMP 36.5–37.2; O2SAT 76–98
[2017-03-09] MEDS: SODIUM CHLORIDE 0.9% 1000ML 1,000 ML IV SCH ×3 (04:13→20:56)
[2017-03-09 08:04] LABS: BASO % 0.2 %; BASO ABS # 0.02 K/uL (0-0.2); EOS % 5.1 %; HEMATOCRIT 26.2 % (37-47); IG% 0.3 %; LYMPH % 26.5 %; LYMPH ABS # 2.88 K/uL (1.2-3.4); MEAN CELL VOLUME 92.6 fL (80-100); MEAN CORPUSCULAR HEMOGLOBIN 31.4 pg (25-34); MEAN PLATELET VOLUME 9.3 fL (7.4-10.4); MONO % 8.6 %; NEUT % 59.3 %; PLATELET COUNT 194 K/uL (130-400); RED BLOOD COUNT 2.83 M/uL (4.2-5.4); WHITE BLOOD COUNT 10.86 K/uL (4.8-10.8)
--- NOTE | 2017-03-09 08:15 | Orthopedic Progress Note ---
Orthopedic Progress Note Date of Service March 09, 2017. Subjective Post OP Day: 2 Reports: feeling well, pain controlled w PO medications, Denies: SOB, calf pain , chest pain, complaints, light headedness, nausea / vomiting Additional Notes: Little PT Objective calves soft nontender, N/V intact, hip located, capillary refill less than 2 sec., dressing C/D/I, A&O x3, toes mobile Silverlon in tact. Date Time Temp Pulse Resp B/P Pulse Ox O2 Delivery O2 Flow Rate FiO2 03/09/17 08:11 37.0 84 18 173/71 94 Room Air 03/09/17 04:25 78 18 154/75 95 Nasal Cannula 03/09/17 00:30 93 Nasal Cannula 3.0 03/09/17 00:15 93 Nasal Cannula 4.0 03/08/17 23:50 Nasal Cannula 3.0 03/08/17 22:57 90 Nasal Cannula 3.0 03/08/17 22:50 36.5 75 17 101/53 87 Nasal Cannula 2.0 03/08/17 15:43 36.7 70 16 101/64 90 Nasal Cannula 2.0 03/08/17 15:15 Nasal Cannula 2.0 03/08/17 11:06 36.9 68 16 92/54 93 Room Air 03/08/17 10:34 70 95 03/08/17 08:35 89 119/70 Laboratory Results 24 Hours: Test 03/08/17 08:25 03/09/17 07:18 White Blood Count 12.15 K/uL 10.86 K/uL Red Blood Count 3.18 M/uL 2.83 M/uL Hemoglobin 9.5 g/dL 8.9 g/dL Hematocrit 29.5 % 26.2 % Mean Corpuscular Volume 92.8 fL 92.6 fL Mean Corpuscular Hemoglobin 29.9 pg 31.4 pg Mean Corpuscular Hemoglobin Concent 32.2 g/dl 34.0 g/dl Platelet Count 204 K/uL 194 K/uL Mean Platelet Volume 8.6 fL 9.3 fL Neutrophils (%) (Auto) 78.7 % 59.3 % Lymphocytes (%) (Auto) 12.6 % 26.5 % Monocytes (%) (Auto) 8.2 % 8.6 % Eosinophils (%) (Auto) 0.2 % 5.1 % Basophils (%) (Auto) 0.1 % 0.2 % Neutrophils # (Auto) 9.56 K/uL 6.45 K/uL Lymphocytes # (Auto) 1.53 K/uL 2.88 K/uL Monocytes # (Auto) 1.00 K/uL 0.93 K/uL Eosinophils # (Auto) 0.02 K/uL 0.55 K/uL Basophils # (Auto) 0.01 K/uL 0.02 K/uL Assessment & Plan Assessment: POD #2 Rt AMILCAR, Right Displaced Femoral Neck FX Plan: PT/ OT DVT proph- ASA D/C planning- Rehab per primary team when stable. As per medicine Inhouse Planning Pain Management: Ultram, Dilaudid, PO Tylenol, Oxy IR DVT Prophylaxis: TEDs, SCDs, ASA Discharge Planning Discharge Planning: rehab hospital Pain Management: PO Tylenol, Oxy IR DVT Prophylaxis: TEDs, ASA Therapy: Physical Therapy, Occupational Therapy
[2017-03-09 08:28] LABS: ACANTHOCYTES 1+; COMPLETE YES
[2017-03-09 08:32] LABS: CREATININE 1.1 mg/dl (0.60-1.20); POTASSIUM 4.5 mmol/L (3.5-5.1)
[2017-03-09] MEDS: POLYETHYLENE (MIRALAX) 17 GM PACK PO PRN (08:47)
[2017-03-09] MEDS: CALCIUM 600MG + VIT D 400 IU TAB PO SCH ×2 (08:48→20:58)
[2017-03-09] MEDS: AMLODIPINE BESYLATE 5 MG TAB PO SCH (08:48)
[2017-03-09] MEDS: DOXYCYCLINE IV 100 MG in DEXTROSE 5% 100ML 100 ML IV SCH (08:48)
[2017-03-09] MEDS: ASPIRIN 81 MG ECTAB PO SCH ×2 (08:48→20:59)
[2017-03-09] MEDS: MULTIVITAMIN TAB PO SCH (08:49)
[2017-03-09] MEDS: CYANOCOBALAMIN 100 MCG TAB (VIT B-12) PO SCH (08:49)
[2017-03-09] MEDS: LEVETIRACETAM 500 MG TAB PO SCH ×2 (08:49→21:00)
[2017-03-09] MEDS: LISINOPRIL 5 MG TAB PO SCH (08:49)
[2017-03-09] MEDS: CHOLECALCIFEROL 1000 INTER.UNIT TAB PO SCH (08:50)
[2017-03-09] MEDS: METOPROLOL TARTRATE 25 MG TAB PO SCH (08:50)
[2017-03-09 09:01] LABS: CALCIUM 7.7 mg/dl (8.5-10.1)
[2017-03-09] MEDS: INSULIN ASPART 100 UNITS/ML 3 ML PEN SC SCH ×4 (09:01→21:08)
[2017-03-09] MEDS: INSULIN GLARGINE SOLOSTAR 100 UNITS/ML 3 ML PEN SC SCH ×2 (09:02→21:09)
--- NOTE | 2017-03-09 10:31 | Consultant Recommendations ---
Director Export Recommendations Date of Service March 09, 2017. Director Export Recommendations ACTIVITY RECOMMENDATIONS: SELF CARE INSTRUCTIONS AFTER TOTAL HIP REPLACEMENT Until the incision and soft tissues around your hip have healed, there is a possibility that the hip prosthesis could dislocate. A. Observe the following precautions to prevent dislocation: 1. Don't bend your hip greater than 90 degrees. 2. Avoid crossing your legs or ankles while standing or lying. 3. Sit with your feet placed 6 inches apart. 4. When sitting, keep your knees below your hips. Sit on a firm surface, avoid deep, soft chairs and couches. Use an elevated toilet seat in the bathroom. 5. Don't bend over at the waist. Use a long handled shoehorn and a sock aid to help you put on your shoes and socks. A project product manager can help you shredder picker objects that are too high or too low to reach. 6. Keep car riding to a minimum for at least one month after surgery. B. Your balance may be shaky for a while. Use crutches or a walker until directed by your doctor. C. Use hand rails when walking on stairs. D. Wear low heeled shoes with non-slip soles. E. Be sure that your floors are free of things that could trip you - throw rugs , electrical cords, small objects. Avoid wet and waxed floors, especially with crutches and canes. F. Try to walk several times a day with rest periods between. G. Continue with all the exercises taught to you in the hospital. Again, make walking a part of your daily routine. SPECIAL CARE INSTRUCTIONS: VERY IMPORTANT TO READ AND REVIEW A. You may still be at risk for phlebitis and blood clots. 1. Wear surgical stockings (FREDDIE hose) for 2 weeks after surgery to improve circulation and reduce swelling. 2. Take Aspirin 81mg twice daily for 4 weeks or as directed by your doctor. This is your blood thinner. 3. High risk patients may be prescribed a stronger blood thinner if necessary. 4. If you are on Coumadin normally, your family doctor/mortician supplies sales representative should monitor your blood work. Expect a phone call the day of or the day after bloodwork is drawn to adjust your dosage. B. You must take antibiotics before having dental work, bladder, bowel and other surgery. Your doctor will provide you with a permanent card to carry describing precautions. C. Call [facility] if you have a fever, redness or swelling around the incision, cloudy drainage from incision, or sudden increase in pain in your hip, not relieved by your regular pain medication. D. Please call the office at if you have any concerns or questions about your operation or recovery. * YOU MAY SHOWER, NO TUB BATHS UNTIL CLEARED BY YOUR DOCTOR. * WEAR FREDDIE HOSE 20 HOURS PER DAY FOR 2 WEEKS. * YOU SHOULD USE A WALKER OR CRUTCHES FOR 2-4 WEEKS. THIS WILL HELP PREVENT STRAIN ON YOUR HIP MUSCLE AND ALLOW IT TO HEAL PROPERLY. YOU MAY WEAN TO A CANE TOLERATED. * MOST PATIENTS WILL HAVE HOME NURSING FOR THERAPY. IF YOU DECIDE TO DO OUTPATIENT PHYSICAL THERAPY, PLEASE SCHEDULE THIS 3 TIMES PER WEEK. * Silverlon- This is a large adhesive bandage that contains silver ions. This helps your incision heal by fighting off bacteria and protecting it from the outside environment. You are permitted to shower with this dressing. This will remain on your incision for 7 days and then should be removed. Some visible blood or drainage through the dressing window is normal. If there is significant drainage or leaking noted before the 7 days notify your doctor's office immediately. Once removed, keep incision clean and dry. If there is any drainage or redness noted, please call your surgeon. . FOLLOW UP VISIT: If appointment is not already scheduled: Please call [facility] ( DR Luu) to make a follow-up appointment for 2 weeks after your surgery at .
[2017-03-09] MEDS: CITALOPRAM 20 MG TAB PO SCH (20:59)
[2017-03-09] MEDS: SIMVASTATIN 20 MG TAB PO SCH (20:59)
[2017-03-09] MEDS: DOXYCYCLINE HYCLATE 100 MG CAP PO SCH (20:59)
[2017-03-09] MEDS: DOCUSATE SODIUM/SENNA 50/8.6MG TAB PO SCH (20:59)
[2017-03-09] MEDS: ZOLPIDEM TARTRATE 5 MG TAB PO PRN (21:10)
--- NOTE | 2017-03-09 21:24 | Progress Note ---
Subjective Date of Service: March 09, 2017. Subjective Pt evaluation today including: conversation w/ patient, physical exam, lab review, review of studies, review of inpatient medication list Saw/examined the patient in room 379 She's doing well, pain is controlled, tolerating diet Was told about plan to discharge, and she insists on staying one night to make sure she is doing well prior to going to [facility] Denies any other symptoms Problem List Medical Problems: (1) Altered mental status Status: Acute (2) Bradycardia Status: Acute (3) Expressive aphasia Status: Acute (4) Fall Status: Acute (5) Possible urinary tract infection Status: Acute (6) Receptive aphasia Status: Acute (7) Skin tear of right hand without complication Status: Acute Review of Systems Constitutional: No chills, No fever Respiratory: No shortness of breath Cardiac: No chest pain Abdomen: No diarrhea, No nausea, No pain, No vomiting Medications Current Inpatient Medications Medications (Trade) Dose Ordered Sig/Zaina Route Start Time Stop Time Status Last Admin Dose Admin Ondansetron HCl (Zofran Inj) 4 mg Q6H PRN IV 03/06/17 12:15 04/05/17 12:14 03/06/17 18:33 4 MG Hydromorphone HCl (Dilaudid Inj) 0.25 mg Q4H PRN IV 03/06/17 12:15 03/20/17 12:14 03/07/17 09:07 0.25 MG Naloxone HCl (Narcan Inj) 0.1 mg PRN PRN IV 03/06/17 12:15 04/05/17 12:14 Senna/Docusate Sodium (Senokot S Tab) 2 tab HS PO 03/06/17 21:00 04/05/17 20:59 03/09/17 20:59 2 TAB Polyethylene (Miralax Powder Packet) 17 gm DAILY PRN PO 03/06/17 12:15 04/05/17 12:14 03/09/17 08:47 17 GM Magnesium Hydroxide (Milk Of Magnesia Susp) 30 ml DAILY PRN PO 03/06/17 12:15 04/05/17 12:14 03/09/17 09:02 30 ML Bisacodyl (Dulcolax Supp) 10 mg DAILY PRN ME 03/06/17 12:15 04/05/17 12:14 03/09/17 07:48 10 MG Sodium Biphosphate/ Sodium Phosphate (Fleet Enema) 132 ml DAILY PRN ME 03/06/17 12:15 04/05/17 12:14 Acetaminophen (Tylenol Tab) 650 mg Q4H PRN PO 03/06/17 12:45 04/05/17 12:44 03/06/17 20:17 650 MG Insulin Glargine (Lantus Solostar Pen) 6 unit Q12 SC 03/06/17 21:00 04/05/17 20:59 03/09/17 21:09 6 UNIT Glucose (Glucose 40% Gel) 15-30 GRAMS 15 GRAMS... UD PRN PO 03/06/17 12:45 04/05/17 12:44 Glucose (Glucose Chew Tab) 4-8 Tablets 4 Tabl... UD PRN PO 03/06/17 12:45 04/05/17 12:44 Dextrose (Dextrose 50% 50ML Syringe) 25-50ML OF 50% DW IV FOR... UD PRN IV 03/06/17 12:45 04/05/17 12:44 Glucagon (Glucagon Inj) 1 mg UD PRN SQ 03/06/17 12:45 04/05/17 12:44 Amlodipine Besylate (Norvasc Tab) 5 mg DAILY PO 03/07/17 09:00 04/06/17 08:59 03/09/17 08:48 5 MG Artificial Tears (Lacri-Lube Oph Oint) 1 appln QID PRN OP 03/06/17 12:45 04/05/17 12:44 Citalopram Hydrobromide (celeXA TAB) 20 mg HS PO 03/06/17 21:00 04/05/17 20:59 03/09/17 20:59 20 MG Cyanocobalamin (Vitamin B-12 Tab) 100 mcg DAILY PO 03/07/17 09:00 04/06/17 08:59 03/09/17 08:49 100 MCG Levetiracetam (Keppra Tab) 750 mg BID PO 03/06/17 21:00 04/05/17 20:59 03/09/17 21:00 750 MG Metoprolol Tartrate (Lopressor Tab) 25 mg DAILY PO 03/07/17 09:00 04/06/17 08:59 03/09/17 08:50 25 MG Multivitamins (Multivitamin Tab) 1 tab DAILY PO 03/07/17 09:00 04/06/17 08:59 03/09/17 08:49 1 TAB Simvastatin (Zocor Tab) 20 mg QPM PO 03/06/17 21:00 04/05/17 20:59 03/09/17 20:59 20 MG Calcium/Vitamin D (Caltrate Plus Tab) 1 tab BID PO 03/06/17 21:00 04/05/17 20:59 03/09/17 20:58 1 TAB Lisinopril (Zestril Tab) 5 mg DAILY PO 03/07/17 09:00 04/06/17 08:59 03/09/17 08:49 5 MG Cholecalciferol (Vitamin D Tab) 1,000 inter.unit DAILY PO 03/07/17 09:00 04/06/17 08:59 03/09/17 08:50 1,000 INTER.UNIT Zolpidem Tartrate 5 mg 5 mg HS PRN PO 03/06/17 21:30 04/05/17 21:29 03/09/17 21:10 5 MG Sodium Chloride (Nss 1000ml) 1,000 ml @ 125 mls/hr Q8H IV 03/07/17 16:01 04/07/17 16:00 03/09/17 20:56 125 MLS/HR Oxycodone HCl (Roxicodone Immediate Rel Tab) 1 TABLET FOR PAIN RATING... Q4H PRN PO 03/07/17 16:15 03/21/17 16:14 Tramadol HCl (Ultram Tab) 1 TABLET FOR PAIN RATING... Q4H PRN PO 03/07/17 16:15 04/06/17 16:14 03/08/17 17:25 50 MG Aspirin (Ecotrin Tab) 81 mg BID PO 03/07/17 21:00 04/06/17 20:59 03/09/17 20:59 81 MG Insulin Aspart (novoLOG ASPART) SLIDING SCALE If C... ACHS SC 03/08/17 08:00 04/07/17 07:59 03/09/17 21:08 3 UNITS Doxycycline Hyclate (Vibramycin Cap) 100 mg BID PO 03/09/17 21:00 5/30/17 20:59 03/09/17 20:59 100 MG Objective Vital Signs Date Time Temp Pulse Resp B/P Pulse Ox O2 Delivery O2 Flow Rate FiO2 03/09/17 19:45 96 Nasal Cannula 3.0 03/09/17 15:27 36.5 75 16 172/77 96 Nasal Cannula 4.0 03/09/17 13:08 75 18 146/62 98 03/09/17 08:11 37.0 84 18 173/71 94 Room Air 03/09/17 07:30 Nasal Cannula 3.0 03/09/17 04:25 78 18 154/75 95 Nasal Cannula 03/09/17 00:30 93 Nasal Cannula 3.0 03/09/17 00:15 93 Nasal Cannula 4.0 03/08/17 23:50 Nasal Cannula 3.0 03/08/17 22:57 90 Nasal Cannula 3.0 03/08/17 22:50 36.5 75 17 101/53 87 Nasal Cannula 2.0 Physical Exam General Appearance: no apparent distress Respiratory/Chest: lungs clear, normal breath sounds, no respiratory distress, no accessory muscle use Cardiovascular: regular rate, rhythm, no edema, no murmur Abdomen: normal bowel sounds, non tender, soft Extremities: normal inspection, no pedal edema Laboratory Results Last 24 Hours Test 03/09/17 07:18 03/09/17 08:14 03/09/17 11:46 03/09/17 17:13 White Blood Count 10.86 K/uL Red Blood Count 2.83 M/uL Hemoglobin 8.9 g/dL Hematocrit 26.2 % Mean Corpuscular Volume 92.6 fL Mean Corpuscular Hemoglobin 31.4 pg Mean Corpuscular Hemoglobin Concent 34.0 g/dl Platelet Count 194 K/uL Mean Platelet Volume 9.3 fL Neutrophils (%) (Auto) 59.3 % Lymphocytes (%) (Auto) 26.5 % Monocytes (%) (Auto) 8.6 % Eosinophils (%) (Auto) 5.1 % Basophils (%) (Auto) 0.2 % Neutrophils # (Auto) 6.45 K/uL Lymphocytes # (Auto) 2.88 K/uL Monocytes # (Auto) 0.93 K/uL Eosinophils # (Auto) 0.55 K/uL Basophils # (Auto) 0.02 K/uL RDW Standard Deviation 48.0 fL RDW Coefficient of Variation 14.0 % Immature Granulocyte % (Auto) 0.3 % Immature Granulocyte # (Auto) 0.03 K/uL Acanthocytes 1+ Sodium Level 134 mmol/L Potassium Level 4.5 mmol/L Chloride Level 103 mmol/L Carbon Dioxide Level 24 mmol/L Anion Gap 7.0 mmol/L Blood Urea Nitrogen 34 mg/dl Creatinine 1.10 mg/dl Est Creatinine Clear Calc Drug Dose 33.4 ml/min Estimated GFR () 52.3 Estimated GFR (Non- 45.1 BUN/Creatinine Ratio 31.0 Random Glucose 101 mg/dl Calcium Level 7.7 mg/dl Bedside Glucose 110 mg/dl 157 mg/dl 114 mg/dl Test 03/09/17 20:30 Bedside Glucose 204 mg/dl Assessment and Plan This is an 86 year old female with a PMH of seizure disorder, hx. of CVA, HTN, DM2, CKD stage 3, chronic allergic rhinitis vs. bronchitis, presents after a mechanical fall and found to have R hip fracture R Hip Fracture 03/09 she's doing well, POD #2 plan is to discharge to [facility] in AM (03/10) instructions as per ortho, will d/c with doxycycline for possible bronchitis to total 5 days 03/08 s/p AMILCAR, POD #1 doing well, pain controlled PT/OT plan for rehab 03/07 patient lives alone, uses cane for ambulation at baseline She started ambulating after putting her cane down and had what seems like a mechanical fall imagining performed showing an acute R femoral neck fracture pt. with osteoporosis at baseline - uses calcium + vitamin D + Prolia appreciate orthopedic input - plan for surgical intervention today (03/07) patient does have some dyspnea with exertion; seems like a chronic issue, she has been seeing ENT and her PCP for a chronic cough as well she may proceed with surgery currently, her pain is controlled; continue IV Dilaudid PRN for pain; further management as per ortho post-operatively Cough, possible Bronchitis 03/08 will continue Doxycycline x5 days 03/07 has had ENT evaluation; possible allergies Her WBC elevated on presentation at 16k she was also hypoxic on admission started on doxycycline; WBC trending down to 12k today, she is not short of breath no coughing during my examination would continue abx. and O2 dinah-operatively Chronic Dyspnea on Exertion she states that she always feel short of breath with distances might be related to above - allergies vs. chronic bronchitis as noted in the H&P, echo was performed in 05/2016 - with mild AV stenosis, grade 1 diastolic dysfunction, with good LVEF will monitor, will need incentive spirometry to prevent atelectasis, early ambulation, etc. HTN periods of elevated blood pressure, likely related to pain overall, well controlled, can continue metoprolol, amlodipine, lisinopril Seizure Disorder last seizure in May of 2016 continue Keppra BID Hx. of CVA states in the early , she's had a CVA no residual deficits restart aspirin when okay with ortho DM2 fairly well controlled with Ha1c ~ 7.0 monitor for hypoglycemia with no PO intake today (03/07) continue Lantus and sliding scale will monitor for hyperglycemia post-operatively due to intra-operative steroid usage CKD stage 3 Creat is stable from baseline Avoid nephrotoxins Depression Continue Celexa HLD Continue statin DVT ppx SCDs, ASA DNR
[2017-03-10] MEDS: SODIUM CHLORIDE 0.9% 1000ML 1,000 ML IV SCH (04:58)
[2017-03-10 08:04] VITALS: BP 173/66; PULSE 97; TEMP 36.9; O2SAT 97
[2017-03-10] MEDS: DOXYCYCLINE HYCLATE 100 MG CAP PO SCH ×2 (09:07→21:25)
[2017-03-10] MEDS: ASPIRIN 81 MG ECTAB PO SCH ×2 (09:07→21:25)
[2017-03-10] MEDS: LEVETIRACETAM 500 MG TAB PO SCH ×2 (09:07→21:25)
[2017-03-10] MEDS: MULTIVITAMIN TAB PO SCH (09:07)
[2017-03-10] MEDS: METOPROLOL TARTRATE 25 MG TAB PO SCH (09:07)
[2017-03-10] MEDS: LISINOPRIL 5 MG TAB PO SCH (09:07)
[2017-03-10] MEDS: CYANOCOBALAMIN 100 MCG TAB (VIT B-12) PO SCH (09:07)
[2017-03-10] MEDS: AMLODIPINE BESYLATE 5 MG TAB PO SCH (09:07)
[2017-03-10] MEDS: CALCIUM 600MG + VIT D 400 IU TAB PO SCH ×2 (09:07→21:24)
[2017-03-10] MEDS: CHOLECALCIFEROL 1000 INTER.UNIT TAB PO SCH (09:07)
[2017-03-10] MEDS: INSULIN ASPART 100 UNITS/ML 3 ML PEN SC SCH ×4 (09:17→21:32)
[2017-03-10] MEDS: INSULIN GLARGINE SOLOSTAR 100 UNITS/ML 3 ML PEN SC SCH ×2 (09:18→21:31)
--- NOTE | 2017-03-10 09:18 | Orthopedic Progress Note ---
Orthopedic Progress Note Date of Service March 10, 2017. Subjective Post OP Day: 3 Reports: feeling well, pain controlled w PO medications, Denies: SOB, chest pain , complaints, light headedness, nausea / vomiting Objective calves soft nontender, N/V intact, hip located, dressing C/D/I, toes mobile Date Time Temp Pulse Resp B/P Pulse Ox O2 Delivery O2 Flow Rate FiO2 03/10/17 08:04 36.9 97 16 173/66 97 3.0 03/09/17 23:48 93 Nasal Cannula 4.0 03/09/17 23:45 37.2 99 16 180/75 76 Room Air 03/09/17 19:45 96 Nasal Cannula 3.0 03/09/17 15:27 36.5 75 16 172/77 96 Nasal Cannula 4.0 03/09/17 13:08 75 18 146/62 98 Assessment & Plan Assessment: POD # 3 Rt AMILCAR, Right Displaced Femoral Neck FX Plan: PT/ OT DVT proph- ASA D/C planning- Rehab per primary team when stable. stable will sign off w geriatric fx protocol followup Dr lawson 2 weeks ASA 81 BID DVT PROPHYLAXIS Inhouse Planning Pain Management: Ultram, Dilaudid, PO Tylenol, Oxy IR DVT Prophylaxis: TEDs, SCDs, ASA Discharge Planning Discharge Planning: rehab hospital Pain Management: PO Tylenol, Oxy IR DVT Prophylaxis: TEDs, ASA Therapy: Physical Therapy, Occupational Therapy
[2017-03-10 09:19] VITALS: BP 159/78; PULSE 95
--- NOTE | 2017-03-10 12:26 | Progress Note ---
Subjective Date of Service: March 10, 2017. Subjective Pt evaluation today including: conversation w/ patient, physical exam, lab review, review of studies, review of inpatient medication list Saw/examined the patient in room 379 She's doing well, no problems/issues today eating well pain controlled Problem List Medical Problems: (1) Altered mental status Status: Acute (2) Bradycardia Status: Acute (3) Expressive aphasia Status: Acute (4) Fall Status: Acute (5) Possible urinary tract infection Status: Acute (6) Receptive aphasia Status: Acute (7) Skin tear of right hand without complication Status: Acute Review of Systems Respiratory: No shortness of breath Cardiac: No chest pain Abdomen: No constipation, No diarrhea, No nausea, No pain, No vomiting Musculoskeletal: No joint pain Medications Current Inpatient Medications Medications (Trade) Dose Ordered Sig/Zaina Route Start Time Stop Time Status Last Admin Dose Admin Ondansetron HCl (Zofran Inj) 4 mg Q6H PRN IV 03/06/17 12:15 04/05/17 12:14 03/06/17 18:33 4 MG Hydromorphone HCl (Dilaudid Inj) 0.25 mg Q4H PRN IV 03/06/17 12:15 03/20/17 12:14 03/07/17 09:07 0.25 MG Naloxone HCl (Narcan Inj) 0.1 mg PRN PRN IV 03/06/17 12:15 04/05/17 12:14 Senna/Docusate Sodium (Senokot S Tab) 2 tab HS PO 03/06/17 21:00 04/05/17 20:59 03/09/17 20:59 2 TAB Polyethylene (Miralax Powder Packet) 17 gm DAILY PRN PO 03/06/17 12:15 04/05/17 12:14 03/09/17 08:47 17 GM Magnesium Hydroxide (Milk Of Magnesia Susp) 30 ml DAILY PRN PO 03/06/17 12:15 04/05/17 12:14 03/09/17 09:02 30 ML Bisacodyl (Dulcolax Supp) 10 mg DAILY PRN SC 03/06/17 12:15 04/05/17 12:14 03/09/17 07:48 10 MG Sodium Biphosphate/ Sodium Phosphate (Fleet Enema) 132 ml DAILY PRN SC 03/06/17 12:15 04/05/17 12:14 Acetaminophen (Tylenol Tab) 650 mg Q4H PRN PO 03/06/17 12:45 04/05/17 12:44 03/06/17 20:17 650 MG Insulin Glargine (Lantus Solostar Pen) 6 unit Q12 SC 03/06/17 21:00 04/05/17 20:59 03/10/17 09:18 6 UNIT Glucose (Glucose 40% Gel) 15-30 GRAMS 15 GRAMS... UD PRN PO 03/06/17 12:45 04/05/17 12:44 Glucose (Glucose Chew Tab) 4-8 Tablets 4 Tabl... UD PRN PO 03/06/17 12:45 04/05/17 12:44 Dextrose (Dextrose 50% 50ML Syringe) 25-50ML OF 50% DW IV FOR... UD PRN IV 03/06/17 12:45 04/05/17 12:44 Glucagon (Glucagon Inj) 1 mg UD PRN SQ 03/06/17 12:45 04/05/17 12:44 Amlodipine Besylate (Norvasc Tab) 5 mg DAILY PO 03/07/17 09:00 04/06/17 08:59 03/10/17 09:07 5 MG Artificial Tears (Lacri-Lube Oph Oint) 1 appln QID PRN OP 03/06/17 12:45 04/05/17 12:44 Citalopram Hydrobromide (celeXA TAB) 20 mg HS PO 03/06/17 21:00 04/05/17 20:59 03/09/17 20:59 20 MG Cyanocobalamin (Vitamin B-12 Tab) 100 mcg DAILY PO 03/07/17 09:00 04/06/17 08:59 03/10/17 09:07 100 MCG Levetiracetam (Keppra Tab) 750 mg BID PO 03/06/17 21:00 04/05/17 20:59 03/10/17 09:07 750 MG Metoprolol Tartrate (Lopressor Tab) 25 mg DAILY PO 03/07/17 09:00 04/06/17 08:59 03/10/17 09:07 25 MG Multivitamins (Multivitamin Tab) 1 tab DAILY PO 03/07/17 09:00 04/06/17 08:59 03/10/17 09:07 1 TAB Simvastatin (Zocor Tab) 20 mg QPM PO 03/06/17 21:00 04/05/17 20:59 03/09/17 20:59 20 MG Calcium/Vitamin D (Caltrate Plus Tab) 1 tab BID PO 03/06/17 21:00 04/05/17 20:59 03/10/17 09:07 1 TAB Lisinopril (Zestril Tab) 5 mg DAILY PO 03/07/17 09:00 04/06/17 08:59 03/10/17 09:07 5 MG Cholecalciferol (Vitamin D Tab) 1,000 inter.unit DAILY PO 03/07/17 09:00 04/06/17 08:59 03/10/17 09:07 1,000 INTER.UNIT Zolpidem Tartrate 5 mg 5 mg HS PRN PO 03/06/17 21:30 04/05/17 21:29 03/09/17 21:10 5 MG Sodium Chloride (Nss 1000ml) 1,000 ml @ 125 mls/hr Q8H IV 03/07/17 16:01 04/07/17 16:00 03/10/17 04:58 125 MLS/HR Oxycodone HCl (Roxicodone Immediate Rel Tab) 1 TABLET FOR PAIN RATING... Q4H PRN PO 03/07/17 16:15 03/21/17 16:14 Tramadol HCl (Ultram Tab) 1 TABLET FOR PAIN RATING... Q4H PRN PO 03/07/17 16:15 04/06/17 16:14 03/08/17 17:25 50 MG Aspirin (Ecotrin Tab) 81 mg BID PO 03/07/17 21:00 04/06/17 20:59 03/10/17 09:07 81 MG Insulin Aspart (novoLOG ASPART) SLIDING SCALE If C... ACHS SC 03/08/17 08:00 04/07/17 07:59 03/10/17 09:17 1 UNITS Doxycycline Hyclate (Vibramycin Cap) 100 mg BID PO 03/09/17 21:00 03/13/17 20:59 03/10/17 09:07 100 MG Objective Vital Signs Date Time Temp Pulse Resp B/P Pulse Ox O2 Delivery O2 Flow Rate FiO2 03/10/17 10:27 Nasal Cannula 3.0 03/10/17 09:19 95 159/78 03/10/17 08:04 36.9 97 16 173/66 97 3.0 03/09/17 23:48 93 Nasal Cannula 4.0 03/09/17 23:45 37.2 99 16 180/75 76 Room Air 03/09/17 19:45 96 Nasal Cannula 3.0 03/09/17 15:27 36.5 75 16 172/77 96 Nasal Cannula 4.0 03/09/17 13:08 75 18 146/62 98 Physical Exam General Appearance: no apparent distress Respiratory/Chest: no respiratory distress, no accessory muscle use Extremities: normal inspection, no pedal edema Neurologic/Psychiatric: no motor/sensory deficits, alert, normal mood/affect Laboratory Results Last 24 Hours Test 03/09/17 17:13 03/09/17 20:30 03/10/17 08:09 03/10/17 11:54 Bedside Glucose 114 mg/dl 204 mg/dl 113 mg/dl 131 mg/dl Assessment and Plan This is an 86 year old female with a PMH of seizure disorder, hx. of CVA, HTN, DM2, CKD stage 3, chronic allergic rhinitis vs. bronchitis, presents after a mechanical fall and found to have R hip fracture R Hip Fracture 03/10 patient is doing well, POD #3 plan is to d/c to [facility] today 03/09 she's doing well, POD #2 plan is to discharge to [facility] in AM (03/10) instructions as per ortho, will d/c with doxycycline for possible bronchitis to total 5 days 03/08 s/p AMILCAR, POD #1 doing well, pain controlled PT/OT plan for rehab 03/07 patient lives alone, uses cane for ambulation at baseline She started ambulating after putting her cane down and had what seems like a mechanical fall imagining performed showing an acute R femoral neck fracture pt. with osteoporosis at baseline - uses calcium + vitamin D + Prolia appreciate orthopedic input - plan for surgical intervention today (03/07) patient does have some dyspnea with exertion; seems like a chronic issue, she has been seeing ENT and her PCP for a chronic cough as well she may proceed with surgery currently, her pain is controlled; continue IV Dilaudid PRN for pain; further management as per ortho post-operatively Cough, possible Bronchitis 03/08 will continue Doxycycline x5 days 03/07 has had ENT evaluation; possible allergies Her WBC elevated on presentation at 16k she was also hypoxic on admission started on doxycycline; WBC trending down to 12k today, she is not short of breath no coughing during my examination would continue abx. and O2 dinah-operatively Chronic Dyspnea on Exertion she states that she always feel short of breath with distances might be related to above - allergies vs. chronic bronchitis as noted in the H&P, echo was performed in 05/2016 - with mild AV stenosis, grade 1 diastolic dysfunction, with good LVEF will monitor, will need incentive spirometry to prevent atelectasis, early ambulation, etc. HTN periods of elevated blood pressure, likely related to pain overall, well controlled, can continue metoprolol, amlodipine, lisinopril Seizure Disorder last seizure in May of 2016 continue Keppra BID Hx. of CVA states in the early , she's had a CVA no residual deficits restart aspirin when okay with ortho DM2 fairly well controlled with Ha1c ~ 7.0 monitor for hypoglycemia with no PO intake today (03/07) continue Lantus and sliding scale will monitor for hyperglycemia post-operatively due to intra-operative steroid usage CKD stage 3 Creat is stable from baseline Avoid nephrotoxins Depression Continue Celexa HLD Continue statin DVT ppx SCDs, ASA DNR
[2017-03-10] MEDS ORDERED: ASPI81TA28 PO (12:30)
[2017-03-10] MEDS ORDERED: ULT50X PO (12:30)
[2017-03-10] MEDS ORDERED: DXY100 PO (12:30)
--- NOTE | 2017-03-10 12:32 | Discharge Instructions ---
Discharge Instructions Date of Service March 10, 2017. Admission Reason for Admission: Right Hip Fracture Discharge Discharge Diagnosis / Problem: R Hip Fracture Discharge Goals Goal(s): Decrease discomfort, Improve function, Diagnostic testing, Therapeutic intervention Activity Recommendations Activity Limitations: per Instructions/Follow-up section . Instructions / Follow-Up Instructions / Follow-Up Please follow-up with orthopedics and PCP as outpatient Please call [facility] ( DR Luu) to make a follow-up appointment for 2 weeks after your surgery at . Current Hospital Diet Patient's current hospital diet: AHA Diet (Heart Healthy), Diabetes Type 2 Diet Discharge Diet Recommended Diet: AHA Diet (Heart Healthy), Diabetes Type 2 Diet Procedures Procedures Performed: Right Total Hip Arthroplasty; Uncemented Pending Studies Studies pending at discharge: no Laboratory Results Hemoglobin A1c Test 03/07/17 08:13 Range/Units Estimated Average Glucose 154 mg/dl Hemoglobin A1c 7.0 H 4.5-5.6 % Medical Emergencies . Who to Call and When: Medical Emergencies: If at any time you feel your situation is an emergency, please call 911 immediately. . Non-Emergent Contact Non-Emergency issues call your: Primary Care Provider, Surgeon . . "Provider Documentation" section prepared by Antonio Lane. . Chief Diversity Officer Recommendations Chief Diversity Officer Recommendations: ACTIVITY RECOMMENDATIONS: SELF CARE INSTRUCTIONS AFTER TOTAL HIP REPLACEMENT Until the incision and soft tissues around your hip have healed, there is a possibility that the hip prosthesis could dislocate. A. Observe the following precautions to prevent dislocation: 1. Don't bend your hip greater than 90 degrees. 2. Avoid crossing your legs or ankles while standing or lying. 3. Sit with your feet placed 6 inches apart. 4. When sitting, keep your knees below your hips. Sit on a firm surface, avoid deep, soft chairs and couches. Use an elevated toilet seat in the bathroom. 5. Don't bend over at the waist. Use a long handled shoehorn and a sock aid to help you put on your shoes and socks. A enrichment assistant can help you picking tech objects that are too high or too low to reach. 6. Keep car riding to a minimum for at least one month after surgery. B. Your balance may be shaky for a while. Use crutches or a walker until directed by your doctor. C. Use hand rails when walking on stairs. D. Wear low heeled shoes with non-slip soles. E. Be sure that your floors are free of things that could trip you - throw rugs , electrical cords, small objects. Avoid wet and waxed floors, especially with crutches and canes. F. Try to walk several times a day with rest periods between. G. Continue with all the exercises taught to you in the hospital. Again, make walking a part of your daily routine. SPECIAL CARE INSTRUCTIONS: VERY IMPORTANT TO READ AND REVIEW A. You may still be at risk for phlebitis and blood clots. 1. Wear surgical stockings (FREDDIE hose) for 2 weeks after surgery to improve circulation and reduce swelling. 2. Take Aspirin 81mg twice daily for 4 weeks or as directed by your doctor. This is your blood thinner. 3. High risk patients may be prescribed a stronger blood thinner if necessary. 4. If you are on Coumadin normally, your family doctor/outcome analyst should monitor your blood work. Expect a phone call the day of or the day after bloodwork is drawn to adjust your dosage. B. You must take antibiotics before having dental work, bladder, bowel and other surgery. Your doctor will provide you with a permanent card to carry describing precautions. C. Call [facility] if you have a fever, redness or swelling around the incision, cloudy drainage from incision, or sudden increase in pain in your hip, not relieved by your regular pain medication. D. Please call the office at if you have any concerns or questions about your operation or recovery. * YOU MAY SHOWER, NO TUB BATHS UNTIL CLEARED BY YOUR DOCTOR. * WEAR FREDDIE HOSE 20 HOURS PER DAY FOR 2 WEEKS. * YOU SHOULD USE A WALKER OR CRUTCHES FOR 2-4 WEEKS. THIS WILL HELP PREVENT STRAIN ON YOUR HIP MUSCLE AND ALLOW IT TO HEAL PROPERLY. YOU MAY WEAN TO A CANE TOLERATED. * MOST PATIENTS WILL HAVE HOME NURSING FOR THERAPY. IF YOU DECIDE TO DO OUTPATIENT PHYSICAL THERAPY, PLEASE SCHEDULE THIS 3 TIMES PER WEEK. * Silverlon- This is a large adhesive bandage that contains silver ions. This helps your incision heal by fighting off bacteria and protecting it from the outside environment. You are permitted to shower with this dressing. This will remain on your incision for 7 days and then should be removed. Some visible blood or drainage through the dressing window is normal. If there is significant drainage or leaking noted before the 7 days notify your doctor's office immediately. Once removed, keep incision clean and dry. If there is any drainage or redness noted, please call your surgeon. . FOLLOW UP VISIT: If appointment is not already scheduled: Please call [facility] ( DR Luu) to make a follow-up appointment for 2 weeks after your surgery at . VTE Core Measure Inpt VTE Proph given/why not?: Other Anticoagulation (ASA 81mg BID), SCD's [place] Drug Monitoring Program Search Results: patient reviewed within database
--- NOTE | 2017-03-10 12:34 | Discharge Summary ---
Discharge Summary Date of Service March 10, 2017. Discharge Summary Admission Date: March 06, 2017 at 11:57 Discharge Date: March 10, 2017 Discharge Disposition: Rehab Principal Diagnosis: R Hip Fracture Medication Reconciliation New Medications: Tramadol HCl (Tramadol HCl) 50 Mg Tab 50 MG PO Q4 PRN for Pain for 3 Days, #18 TABS Doxycycline Hyclate (Doxycycline Hyclate) 100 Mg Cap 100 MG PO BID for 2 Days, #4 CAP Changed Medications: Aspirin (Aspirin Ec) 81 Mg Tab 81 MG PO BID for 30 Days, #60 TABS (Changed from: DAILY) Continued Medications: Amlodipine Besylate (Amlodipine Besylate) 5 Mg Tab 5 MG PO DAILY, #30 TAB Artificial Tears Oph Oint (Lacri-Lube Sop Oph Oint) Oint 0.25-0.5 INCH OP QID, #1 TUBE TO THE AFFECTED EYE UP TO QID PRN Calcium Carbonate-Vitamin D (Calcium) 1 Tab Tab 1 TAB PO BID Cholecalciferol (Vitamin D3) 1,000 Unit Tab 1 TAB PO DAILY for 30 Days, #30 TAB 5 Refills Citalopram Hydrobromide (Citalopram Hydrobromide) 20 Mg Tab 20 MG PO HS Cyanocobalamin (Vitamin B-12) 100 Mcg Tab 100 MCG PO DAILY, #100 TAB Denosumab (Prolia) 60 Mg/Ml Justyna 60 MG SQ [id number] Insulin Aspart 70/30 (Novolog Mix 70/30) Susp 14 UNITS SC QAM, BTL Inject 14 units subcutaneously before breakfast. Insulin Aspart 70/30 (Novolog Mix 70/30) Susp 8 UNITS SC QPM, BTL Inject 8 units subcutaneously before supper. Levetiractam (Levetiracetam) 500 Mg Tab 750 MG PO BID, #60 TAB Lisinopril (Lisinopril) 5 Mg Tab 5 MG PO DAILY Metoprolol Tartrate (Lopressor) 25 Mg Tab 25 MG PO DAILY, #60 TAB Multivitamin (Multivitamin) Tab 1 TAB PO DAILY Polyethylene Glycol 3350 (Miralax) 1 Pow Pow 17 GM PO BID PRN for Constipation Simvastatin (Zocor) 20 Mg Tab 20 MG PO QPM, TAB Zolpidem Tartrate (Ambien) 5 Mg Tab 5 MG PO HS PRN for Sleep, TAB Admission Information HPI (per Admitting provider): This is an 86 year old female with PMH of seizure disorder, hx CVA without residual deficit, DM type 2, hypertension, CKD stage III, and other problems listed below who presents to the ED with right hip pain s/p fall. Patient states this morning she set her cane down and was taking the garbage out in her garage when she lost her balance and fell onto her right hip. She was unable to move due to R hip pain. She is unsure if there was any head trauma. No dizziness or LOC. She sustained a skin tear to the left hand which is non- painful. No other injury. Patient reports being down for approximately 1 hour. Her daughter in law phoned and when there was no answer, went to the patient's home, found her down, and called 911. Patient received Fentanyl en route and in the ER. Pain is currently controlled. Patient's chronic balance difficulty has been stable. No recent seizures. She reports cough with yellow sputum for several months. Pt reports cough worsened recently which she attributes to allergies. She reports itchy eyes, sinus congestion, and postnasal drip. Patient reports being evaluated by ENT Dr. Carrasco and was told cough was related to allergies. She was also evaluated by Dr. Goldstein for the cough on 02/01/17. No abx were prescribed. Patient also reports MORTON with ambulating which is stable x 1 year. 2 pillow orthopnea also stable. Has not climbed a flight of stairs recently. No home O2 use. Pt denies fever, chills, sore throat, ear ache , chest pain, SOB at rest, abdominal pain, N/V/D, dysuria, frequency, edema, weight gain, abnormal bleeding/ bruising, vision change, focal numbness or weakness. Denies hx of CAD or lung disease. Prior echo 05/2016 showed moderate concentric LVH, sigmoid septum, EF 60-65%, moderate AV calcification, mild AV stenosis, mild mitral annular calcification, grade I diastolic dysfunction. Patient has had L hip surgery by Dr. Murillo in the past. Physical Exam (per Admitting): General Appearance: WD/WN, no apparent distress Head: normocephalic, atraumatic Eyes: normal inspection, PERRL, EOMI, sclerae normal ENT: pharynx normal, + pertinent finding (right ear hearing aid, + cerumen occluding R ear canal. L TM normal. no nasal discharge. no sinus tenderness. ) Neck: supple Respiratory/Chest: lungs clear, normal breath sounds, no respiratory distress, no accessory muscle use Cardiovascular: regular rate, rhythm, no murmur Abdomen/GI: normal bowel sounds, non tender, soft Genitourinary - Female: + pertinent finding (krueger draining clear yellow urine) Extremities/Musculoskelatal: no calf tenderness, normal capillary refill, no pedal edema, + pertinent finding (severe pain with right hip movement.) Neurologic/Psych: alert, normal mood/affect, oriented x 3, + pertinent finding (UE strength 5/5 bilat. RLE motor limited by pain. ankle flexion extension 5/5 bilat LE. ) Skin: + pertinent finding (ecchymosis scattered right forearm. right hand skin tear. soft mobile possible lipomatous mass on left upper chest- chronic per patient. mild erythema right hip lateral aspect and few small ecchymotic areas on anterior R thigh. ) Hospital Course This is an 86 year old female with a PMH of seizure disorder, hx. of CVA, HTN, DM2, CKD stage 3, chronic allergic rhinitis vs. bronchitis, presents after a mechanical fall and found to have R hip fracture R Hip Fracture 03/13 POD #6 doing well, no constipation No pain, as it is controlled with medications d/c plan today 03/12 POD #5 no issues d/c plan for AM if bed available 03/11 POD #4 doing well, pain controlled plan is to d/c to [facility] 03/10 patient is doing well, POD #3 plan is to d/c to [facility] today 03/09 she's doing well, POD #2 plan is to discharge to [facility] in AM (03/10) instructions as per ortho, will d/c with doxycycline for possible bronchitis to total 5 days 03/08 s/p AMILCAR, POD #1 doing well, pain controlled PT/OT plan for rehab 03/07 patient lives alone, uses cane for ambulation at baseline She started ambulating after putting her cane down and had what seems like a mechanical fall imagining performed showing an acute R femoral neck fracture pt. with osteoporosis at baseline - uses calcium + vitamin D + Prolia appreciate orthopedic input - plan for surgical intervention today (03/07) patient does have some dyspnea with exertion; seems like a chronic issue, she has been seeing ENT and her PCP for a chronic cough as well she may proceed with surgery currently, her pain is controlled; continue IV Dilaudid PRN for pain; further management as per ortho post-operatively Cough, possible Bronchitis 03/08 will continue Doxycycline x5 days 03/07 has had ENT evaluation; possible allergies Her WBC elevated on presentation at 16k she was also hypoxic on admission started on doxycycline; WBC trending down to 12k today, she is not short of breath no coughing during my examination would continue abx. and O2 dinah-operatively Chronic Dyspnea on Exertion she states that she always feel short of breath with distances might be related to above - allergies vs. chronic bronchitis as noted in the H&P, echo was performed in 05/2016 - with mild AV stenosis, grade 1 diastolic dysfunction, with good LVEF will monitor, will need incentive spirometry to prevent atelectasis, early ambulation, etc. HTN periods of elevated blood pressure, likely related to pain overall, well controlled, can continue metoprolol, amlodipine, lisinopril Seizure Disorder last seizure in May of 2016 continue Keppra BID Hx. of CVA states in the early , she's had a CVA no residual deficits restart aspirin when okay with ortho DM2 fairly well controlled with Ha1c ~ 7.0 monitor for hypoglycemia with no PO intake today (03/07) continue Lantus and sliding scale will monitor for hyperglycemia post-operatively due to intra-operative steroid usage CKD stage 3 Creat is stable from baseline Avoid nephrotoxins Depression Continue Celexa HLD Continue statin DVT ppx SCDs, ASA DNR Total time spent on discharge = 40 minutes This includes examination of the patient, discharge planning, medication reconciliation, and communication with other providers. Discharge Instructions Please follow-up with orthopedics and PCP as outpatient Please call [facility] ( DR Luu) to make a follow-up appointment for 2 weeks after your surgery at .
[2017-03-10] MEDS ORDERED: NURSING VERBAL MED ORDER ONE (13:30)
[2017-03-10 15:28] VITALS: BP 138/80; PULSE 76; TEMP 36.9; O2SAT 97
[2017-03-10] MEDS: DOCUSATE SODIUM/SENNA 50/8.6MG TAB PO SCH (21:00)
[2017-03-10] MEDS: CITALOPRAM 20 MG TAB PO SCH (21:24)
[2017-03-10] MEDS: SIMVASTATIN 20 MG TAB PO SCH (21:25)
[2017-03-10] MEDS: ZOLPIDEM TARTRATE 5 MG TAB PO PRN (21:36)
[2017-03-10 23:50] VITALS: BP 157/74; PULSE 86
[2017-03-10 23:54] VITALS: BP 182/76; PULSE 98; TEMP 37.2; O2SAT 96
[2017-03-11] VITALS (8 sets, daily range): BP systolic 133–183; BP diastolic 71–81; PULSE 73–91; TEMP 37; O2SAT 93–99
[2017-03-11] MEDS: CHOLECALCIFEROL 1000 INTER.UNIT TAB PO SCH (09:12)
[2017-03-11] MEDS: AMLODIPINE BESYLATE 5 MG TAB PO SCH (09:12)
[2017-03-11] MEDS: CYANOCOBALAMIN 100 MCG TAB (VIT B-12) PO SCH (09:12)
[2017-03-11] MEDS: ASPIRIN 81 MG ECTAB PO SCH ×2 (09:12→20:21)
[2017-03-11] MEDS: DOXYCYCLINE HYCLATE 100 MG CAP PO SCH ×2 (09:12→20:23)
[2017-03-11] MEDS: LISINOPRIL 5 MG TAB PO SCH (09:12)
[2017-03-11] MEDS: LEVETIRACETAM 500 MG TAB PO SCH ×2 (09:13→20:22)
[2017-03-11] MEDS: CALCIUM 600MG + VIT D 400 IU TAB PO SCH ×2 (09:13→20:21)
[2017-03-11] MEDS: METOPROLOL TARTRATE 25 MG TAB PO SCH (09:13)
[2017-03-11] MEDS: MULTIVITAMIN TAB PO SCH (09:13)
[2017-03-11] MEDS: INSULIN ASPART 100 UNITS/ML 3 ML PEN SC SCH ×4 (09:21→20:27)
[2017-03-11] MEDS: INSULIN GLARGINE SOLOSTAR 100 UNITS/ML 3 ML PEN SC SCH ×2 (09:22→20:29)
--- NOTE | 2017-03-11 12:21 | Progress Note ---
Subjective Date of Service: March 11, 2017. Subjective Pt evaluation today including: conversation w/ patient, physical exam, lab review, review of studies, review of inpatient medication list Saw/examined the patient in room 379 She has worked with therapy, minimal pain with ambulation at site of surgery no fevers/chills no nausea/vomiting/diarrhea, good PO intake Problem List Medical Problems: (1) Altered mental status Status: Acute (2) Bradycardia Status: Acute (3) Expressive aphasia Status: Acute (4) Fall Status: Acute (5) Possible urinary tract infection Status: Acute (6) Receptive aphasia Status: Acute (7) Skin tear of right hand without complication Status: Acute Review of Systems Constitutional: No chills, No fever Respiratory: No shortness of breath Cardiac: No chest pain Abdomen: No constipation, No diarrhea, No nausea, No pain, No vomiting Medications Current Inpatient Medications Medications (Trade) Dose Ordered Sig/Zaina Route Start Time Stop Time Status Last Admin Dose Admin Ondansetron HCl (Zofran Inj) 4 mg Q6H PRN IV 03/06/17 12:15 04/05/17 12:14 03/06/17 18:33 4 MG Hydromorphone HCl (Dilaudid Inj) 0.25 mg Q4H PRN IV 03/06/17 12:15 03/20/17 12:14 03/07/17 09:07 0.25 MG Naloxone HCl (Narcan Inj) 0.1 mg PRN PRN IV 03/06/17 12:15 04/05/17 12:14 Senna/Docusate Sodium (Senokot S Tab) 2 tab HS PO 03/06/17 21:00 04/05/17 20:59 03/09/17 20:59 2 TAB Polyethylene (Miralax Powder Packet) 17 gm DAILY PRN PO 03/06/17 12:15 04/05/17 12:14 03/09/17 08:47 17 GM Magnesium Hydroxide (Milk Of Magnesia Susp) 30 ml DAILY PRN PO 03/06/17 12:15 04/05/17 12:14 03/09/17 09:02 30 ML Bisacodyl (Dulcolax Supp) 10 mg DAILY PRN NH 03/06/17 12:15 04/05/17 12:14 03/09/17 07:48 10 MG Sodium Biphosphate/ Sodium Phosphate (Fleet Enema) 132 ml DAILY PRN NH 03/06/17 12:15 04/05/17 12:14 Acetaminophen (Tylenol Tab) 650 mg Q4H PRN PO 03/06/17 12:45 04/05/17 12:44 03/06/17 20:17 650 MG Insulin Glargine (Lantus Solostar Pen) 6 unit Q12 SC 03/06/17 21:00 04/05/17 20:59 03/11/17 09:22 6 UNIT Glucose (Glucose 40% Gel) 15-30 GRAMS 15 GRAMS... UD PRN PO 03/06/17 12:45 04/05/17 12:44 Glucose (Glucose Chew Tab) 4-8 Tablets 4 Tabl... UD PRN PO 03/06/17 12:45 04/05/17 12:44 Dextrose (Dextrose 50% 50ML Syringe) 25-50ML OF 50% DW IV FOR... UD PRN IV 03/06/17 12:45 04/05/17 12:44 Glucagon (Glucagon Inj) 1 mg UD PRN SQ 03/06/17 12:45 04/05/17 12:44 Amlodipine Besylate (Norvasc Tab) 5 mg DAILY PO 03/07/17 09:00 04/06/17 08:59 03/11/17 09:12 5 MG Artificial Tears (Lacri-Lube Oph Oint) 1 appln QID PRN OP 03/06/17 12:45 04/05/17 12:44 Citalopram Hydrobromide (celeXA TAB) 20 mg HS PO 03/06/17 21:00 04/05/17 20:59 03/10/17 21:24 20 MG Cyanocobalamin (Vitamin B-12 Tab) 100 mcg DAILY PO 03/07/17 09:00 04/06/17 08:59 03/11/17 09:12 100 MCG Levetiracetam (Keppra Tab) 750 mg BID PO 03/06/17 21:00 04/05/17 20:59 03/11/17 09:13 750 MG Metoprolol Tartrate (Lopressor Tab) 25 mg DAILY PO 03/07/17 09:00 04/06/17 08:59 03/11/17 09:13 25 MG Multivitamins (Multivitamin Tab) 1 tab DAILY PO 03/07/17 09:00 04/06/17 08:59 03/11/17 09:13 1 TAB Simvastatin (Zocor Tab) 20 mg QPM PO 03/06/17 21:00 04/05/17 20:59 03/10/17 21:25 20 MG Calcium/Vitamin D (Caltrate Plus Tab) 1 tab BID PO 03/06/17 21:00 04/05/17 20:59 03/11/17 09:13 1 TAB Lisinopril (Zestril Tab) 5 mg DAILY PO 03/07/17 09:00 04/06/17 08:59 03/11/17 09:12 5 MG Cholecalciferol (Vitamin D Tab) 1,000 inter.unit DAILY PO 03/07/17 09:00 04/06/17 08:59 03/11/17 09:12 1,000 INTER.UNIT Zolpidem Tartrate (Ambien Tab) 5 mg HS PRN PO 03/06/17 21:30 04/05/17 21:29 03/10/17 21:36 5 MG Oxycodone HCl (Roxicodone Immediate Rel Tab) 1 TABLET FOR PAIN RATING... Q4H PRN PO 03/07/17 16:15 03/21/17 16:14 Tramadol HCl (Ultram Tab) 1 TABLET FOR PAIN RATING... Q4H PRN PO 03/07/17 16:15 04/06/17 16:14 03/08/17 17:25 50 MG Aspirin (Ecotrin Tab) 81 mg BID PO 03/07/17 21:00 04/06/17 20:59 03/11/17 09:12 81 MG Insulin Aspart (novoLOG ASPART) SLIDING SCALE If C... ACHS SC 03/08/17 08:00 04/07/17 07:59 03/11/17 09:21 3 UNITS Doxycycline Hyclate (Vibramycin Cap) 100 mg BID PO 03/09/17 21:00 03/13/17 20:59 03/11/17 09:12 100 MG Objective Vital Signs Date Time Temp Pulse Resp B/P Pulse Ox O2 Delivery O2 Flow Rate FiO2 03/11/17 08:07 Nasal Cannula 2.0 03/11/17 07:15 37.0 91 18 174/75 98 Nasal Cannula 2.0 03/11/17 07:13 183/81 03/11/17 00:00 86 157/74 03/10/17 23:54 37.2 98 16 182/76 96 Nasal Cannula 2.0 03/10/17 20:00 Nasal Cannula 3.0 03/10/17 15:28 36.9 76 18 138/80 97 Nasal Cannula 2.0 Physical Exam General Appearance: no apparent distress Respiratory/Chest: no respiratory distress, no accessory muscle use, + rhonchi Cardiovascular: regular rate, rhythm, no edema, no murmur Extremities: non-tender, normal inspection, no pedal edema Laboratory Results Last 24 Hours Test 03/10/17 17:04 03/10/17 20:36 03/11/17 07:55 Bedside Glucose 134 mg/dl 201 mg/dl 114 mg/dl Assessment and Plan This is an 86 year old female with a PMH of seizure disorder, hx. of CVA, HTN, DM2, CKD stage 3, chronic allergic rhinitis vs. bronchitis, presents after a mechanical fall and found to have R hip fracture R Hip Fracture 03/11 POD #4 doing well, pain controlled plan is to d/c to [facility] 03/10 patient is doing well, POD #3 plan is to d/c to [facility] today 03/09 she's doing well, POD #2 plan is to discharge to [facility] in AM (03/10) instructions as per ortho, will d/c with doxycycline for possible bronchitis to total 5 days 03/08 s/p AMILCAR, POD #1 doing well, pain controlled PT/OT plan for rehab 03/07 patient lives alone, uses cane for ambulation at baseline She started ambulating after putting her cane down and had what seems like a mechanical fall imagining performed showing an acute R femoral neck fracture pt. with osteoporosis at baseline - uses calcium + vitamin D + Prolia appreciate orthopedic input - plan for surgical intervention today (03/07) patient does have some dyspnea with exertion; seems like a chronic issue, she has been seeing ENT and her PCP for a chronic cough as well she may proceed with surgery currently, her pain is controlled; continue IV Dilaudid PRN for pain; further management as per ortho post-operatively Cough, possible Bronchitis 03/08 will continue Doxycycline x5 days 03/07 has had ENT evaluation; possible allergies Her WBC elevated on presentation at 16k she was also hypoxic on admission started on doxycycline; WBC trending down to 12k today, she is not short of breath no coughing during my examination would continue abx. and O2 dinah-operatively Chronic Dyspnea on Exertion she states that she always feel short of breath with distances might be related to above - allergies vs. chronic bronchitis as noted in the H&P, echo was performed in 05/2016 - with mild AV stenosis, grade 1 diastolic dysfunction, with good LVEF will monitor, will need incentive spirometry to prevent atelectasis, early ambulation, etc. HTN periods of elevated blood pressure, likely related to pain overall, well controlled, can continue metoprolol, amlodipine, lisinopril Seizure Disorder last seizure in May of 2016 continue Keppra BID Hx. of CVA states in the early , she's had a CVA no residual deficits restart aspirin when okay with ortho DM2 fairly well controlled with Ha1c ~ 7.0 monitor for hypoglycemia with no PO intake today (03/07) continue Lantus and sliding scale will monitor for hyperglycemia post-operatively due to intra-operative steroid usage CKD stage 3 Creat is stable from baseline Avoid nephrotoxins Depression Continue Celexa HLD Continue statin DVT ppx SCDs, ASA DNR
[2017-03-11] MEDS: CITALOPRAM 20 MG TAB PO SCH (20:21)
[2017-03-11] MEDS: DOCUSATE SODIUM/SENNA 50/8.6MG TAB PO SCH (20:23)
[2017-03-11] MEDS: SIMVASTATIN 20 MG TAB PO SCH (20:23)
[2017-03-11] MEDS: ZOLPIDEM TARTRATE 5 MG TAB PO PRN (20:26)
[2017-03-12 07:34] VITALS: BP 170/75; PULSE 96; TEMP 37.2; O2SAT 94
[2017-03-12] MEDS: MULTIVITAMIN TAB PO SCH (09:02)
[2017-03-12] MEDS: CHOLECALCIFEROL 1000 INTER.UNIT TAB PO SCH (09:02)
[2017-03-12] MEDS: LISINOPRIL 5 MG TAB PO SCH (09:03)
[2017-03-12] MEDS: LEVETIRACETAM 500 MG TAB PO SCH ×2 (09:03→21:22)
[2017-03-12] MEDS: CYANOCOBALAMIN 100 MCG TAB (VIT B-12) PO SCH (09:03)
[2017-03-12] MEDS: CALCIUM 600MG + VIT D 400 IU TAB PO SCH ×2 (09:03→21:06)
[2017-03-12] MEDS: ASPIRIN 81 MG ECTAB PO SCH ×2 (09:04→21:06)
[2017-03-12] MEDS: DOXYCYCLINE HYCLATE 100 MG CAP PO SCH ×2 (09:04→21:23)
[2017-03-12] MEDS: METOPROLOL TARTRATE 25 MG TAB PO SCH (09:04)
[2017-03-12] MEDS: AMLODIPINE BESYLATE 5 MG TAB PO SCH (09:04)
[2017-03-12] MEDS: INSULIN ASPART 100 UNITS/ML 3 ML PEN SC SCH ×4 (09:11→22:01)
[2017-03-12] MEDS: INSULIN GLARGINE SOLOSTAR 100 UNITS/ML 3 ML PEN SC SCH ×2 (09:12→22:02)
[2017-03-12 09:15] VITALS: BP 151/74; PULSE 95
[2017-03-12 16:13] VITALS: BP 165/73; PULSE 76; TEMP 36.9; O2SAT 95
--- NOTE | 2017-03-12 16:33 | Progress Note ---
Subjective Date of Service: March 12, 2017. Subjective Pt evaluation today including: conversation w/ patient, physical exam, lab review, review of studies, review of inpatient medication list Saw/examined the patient in room 379 Doing well pain controlled ambulating well no problems/issues eager to go to rehab Problem List Medical Problems: (1) Altered mental status Status: Acute (2) Bradycardia Status: Acute (3) Expressive aphasia Status: Acute (4) Fall Status: Acute (5) Possible urinary tract infection Status: Acute (6) Receptive aphasia Status: Acute (7) Skin tear of right hand without complication Status: Acute Review of Systems Constitutional: No chills, No fever Abdomen: No constipation, No diarrhea, No nausea, No pain, No vomiting Musculoskeletal: + joint pain Medications Current Inpatient Medications Medications (Trade) Dose Ordered Sig/Zaina Route Start Time Stop Time Status Last Admin Dose Admin Ondansetron HCl (Zofran Inj) 4 mg Q6H PRN IV 03/06/17 12:15 04/05/17 12:14 03/06/17 18:33 4 MG Hydromorphone HCl (Dilaudid Inj) 0.25 mg Q4H PRN IV 03/06/17 12:15 03/20/17 12:14 03/07/17 09:07 0.25 MG Naloxone HCl (Narcan Inj) 0.1 mg PRN PRN IV 03/06/17 12:15 04/05/17 12:14 Senna/Docusate Sodium (Senokot S Tab) 2 tab HS PO 03/06/17 21:00 04/05/17 20:59 03/11/17 20:23 2 TAB Polyethylene (Miralax Powder Packet) 17 gm DAILY PRN PO 03/06/17 12:15 04/05/17 12:14 03/09/17 08:47 17 GM Magnesium Hydroxide (Milk Of Magnesia Susp) 30 ml DAILY PRN PO 03/06/17 12:15 04/05/17 12:14 03/09/17 09:02 30 ML Bisacodyl (Dulcolax Supp) 10 mg DAILY PRN MD 03/06/17 12:15 04/05/17 12:14 03/09/17 07:48 10 MG Sodium Biphosphate/ Sodium Phosphate (Fleet Enema) 132 ml DAILY PRN MD 03/06/17 12:15 04/05/17 12:14 Acetaminophen (Tylenol Tab) 650 mg Q4H PRN PO 03/06/17 12:45 04/05/17 12:44 03/06/17 20:17 650 MG Insulin Glargine (Lantus Solostar Pen) 6 unit Q12 SC 03/06/17 21:00 04/05/17 20:59 03/12/17 09:12 6 UNIT Glucose (Glucose 40% Gel) 15-30 GRAMS 15 GRAMS... UD PRN PO 03/06/17 12:45 04/05/17 12:44 Glucose (Glucose Chew Tab) 4-8 Tablets 4 Tabl... UD PRN PO 03/06/17 12:45 04/05/17 12:44 Dextrose (Dextrose 50% 50ML Syringe) 25-50ML OF 50% DW IV FOR... UD PRN IV 03/06/17 12:45 04/05/17 12:44 Glucagon (Glucagon Inj) 1 mg UD PRN SQ 03/06/17 12:45 04/05/17 12:44 Amlodipine Besylate (Norvasc Tab) 5 mg DAILY PO 03/07/17 09:00 04/06/17 08:59 03/12/17 09:04 5 MG Artificial Tears (Lacri-Lube Oph Oint) 1 appln QID PRN OP 03/06/17 12:45 04/05/17 12:44 Citalopram Hydrobromide (celeXA TAB) 20 mg HS PO 03/06/17 21:00 04/05/17 20:59 03/11/17 20:21 20 MG Cyanocobalamin (Vitamin B-12 Tab) 100 mcg DAILY PO 03/07/17 09:00 04/06/17 08:59 03/12/17 09:03 100 MCG Levetiracetam (Keppra Tab) 750 mg BID PO 03/06/17 21:00 04/05/17 20:59 03/12/17 09:03 750 MG Metoprolol Tartrate (Lopressor Tab) 25 mg DAILY PO 03/07/17 09:00 04/06/17 08:59 03/12/17 09:04 25 MG Multivitamins (Multivitamin Tab) 1 tab DAILY PO 03/07/17 09:00 04/06/17 08:59 03/12/17 09:02 1 TAB Simvastatin (Zocor Tab) 20 mg QPM PO 03/06/17 21:00 04/05/17 20:59 03/11/17 20:23 20 MG Calcium/Vitamin D (Caltrate Plus Tab) 1 tab BID PO 03/06/17 21:00 04/05/17 20:59 03/12/17 09:03 1 TAB Lisinopril (Zestril Tab) 5 mg DAILY PO 03/07/17 09:00 04/06/17 08:59 03/12/17 09:03 5 MG Cholecalciferol (Vitamin D Tab) 1,000 inter.unit DAILY PO 03/07/17 09:00 04/06/17 08:59 03/12/17 09:02 1,000 INTER.UNIT Zolpidem Tartrate (Ambien Tab) 5 mg HS PRN PO 03/06/17 21:30 04/05/17 21:29 03/11/17 20:26 5 MG Oxycodone HCl (Roxicodone Immediate Rel Tab) 1 TABLET FOR PAIN RATING... Q4H PRN PO 03/07/17 16:15 03/21/17 16:14 Tramadol HCl (Ultram Tab) 1 TABLET FOR PAIN RATING... Q4H PRN PO 03/07/17 16:15 04/06/17 16:14 03/08/17 17:25 50 MG Aspirin (Ecotrin Tab) 81 mg BID PO 03/07/17 21:00 04/06/17 20:59 03/12/17 09:04 81 MG Insulin Aspart (novoLOG ASPART) SLIDING SCALE If C... ACHS SC 03/08/17 08:00 04/07/17 07:59 03/12/17 13:16 3 UNITS Doxycycline Hyclate (Vibramycin Cap) 100 mg BID PO 03/09/17 21:00 03/13/17 20:59 03/12/17 09:04 100 MG Objective Vital Signs Date Time Temp Pulse Resp B/P Pulse Ox O2 Delivery O2 Flow Rate FiO2 03/12/17 16:13 36.9 76 18 165/73 95 Room Air 03/12/17 09:15 95 151/74 03/12/17 08:15 Room Air 03/12/17 07:34 37.2 96 18 170/75 94 Room Air 03/11/17 22:55 37.0 85 16 155/71 93 Room Air 03/11/17 20:31 95 Room Air 03/11/17 18:50 Nasal Cannula Physical Exam General Appearance: no apparent distress Respiratory/Chest: no respiratory distress, no accessory muscle use Cardiovascular: regular rate, rhythm, no edema, no murmur Abdomen: normal bowel sounds, non tender, soft Extremities: normal inspection, no pedal edema Laboratory Results Last 24 Hours Test 03/11/17 17:00 03/11/17 20:20 03/12/17 08:12 03/12/17 11:53 Bedside Glucose 111 mg/dl 98 mg/dl 120 mg/dl 134 mg/dl Assessment and Plan This is an 86 year old female with a PMH of seizure disorder, hx. of CVA, HTN, DM2, CKD stage 3, chronic allergic rhinitis vs. bronchitis, presents after a mechanical fall and found to have R hip fracture R Hip Fracture 03/12 POD #5 no issues d/c plan for AM if bed available 03/11 POD #4 doing well, pain controlled plan is to d/c to [facility] 03/10 patient is doing well, POD #3 plan is to d/c to [facility] today 03/09 she's doing well, POD #2 plan is to discharge to [facility] in AM (03/10) instructions as per ortho, will d/c with doxycycline for possible bronchitis to total 5 days 03/08 s/p AMILCAR, POD #1 doing well, pain controlled PT/OT plan for rehab 03/07 patient lives alone, uses cane for ambulation at baseline She started ambulating after putting her cane down and had what seems like a mechanical fall imagining performed showing an acute R femoral neck fracture pt. with osteoporosis at baseline - uses calcium + vitamin D + Prolia appreciate orthopedic input - plan for surgical intervention today (03/07) patient does have some dyspnea with exertion; seems like a chronic issue, she has been seeing ENT and her PCP for a chronic cough as well she may proceed with surgery currently, her pain is controlled; continue IV Dilaudid PRN for pain; further management as per ortho post-operatively Cough, possible Bronchitis 03/08 will continue Doxycycline x5 days 03/07 has had ENT evaluation; possible allergies Her WBC elevated on presentation at 16k she was also hypoxic on admission started on doxycycline; WBC trending down to 12k today, she is not short of breath no coughing during my examination would continue abx. and O2 dinah-operatively Chronic Dyspnea on Exertion she states that she always feel short of breath with distances might be related to above - allergies vs. chronic bronchitis as noted in the H&P, echo was performed in 05/2016 - with mild AV stenosis, grade 1 diastolic dysfunction, with good LVEF will monitor, will need incentive spirometry to prevent atelectasis, early ambulation, etc. HTN periods of elevated blood pressure, likely related to pain overall, well controlled, can continue metoprolol, amlodipine, lisinopril Seizure Disorder last seizure in May of 2016 continue Keppra BID Hx. of CVA states in the early , she's had a CVA no residual deficits restart aspirin when okay with ortho DM2 fairly well controlled with Ha1c ~ 7.0 monitor for hypoglycemia with no PO intake today (03/07) continue Lantus and sliding scale will monitor for hyperglycemia post-operatively due to intra-operative steroid usage CKD stage 3 Creat is stable from baseline Avoid nephrotoxins Depression Continue Celexa HLD Continue statin DVT ppx SCDs, ASA DNR
[2017-03-12] MEDS: CITALOPRAM 20 MG TAB PO SCH (21:06)
[2017-03-12] MEDS: ZOLPIDEM TARTRATE 5 MG TAB PO PRN (21:22)
[2017-03-12] MEDS: DOCUSATE SODIUM/SENNA 50/8.6MG TAB PO SCH (21:23)
[2017-03-12] MEDS: SIMVASTATIN 20 MG TAB PO SCH (21:23)
[2017-03-12 23:25] VITALS: BP 148/72; PULSE 84; TEMP 37; O2SAT 93
[2017-03-13 07:51] VITALS: BP 172/67; PULSE 95; TEMP 37; O2SAT 94
[2017-03-13] MEDS: INSULIN GLARGINE SOLOSTAR 100 UNITS/ML 3 ML PEN SC SCH (09:38)
[2017-03-13] MEDS: INSULIN ASPART 100 UNITS/ML 3 ML PEN SC SCH ×2 (09:39→12:33)
[2017-03-13] MEDS: LISINOPRIL 5 MG TAB PO SCH (09:41)
[2017-03-13] MEDS: MULTIVITAMIN TAB PO SCH (09:41)
[2017-03-13] MEDS: ASPIRIN 81 MG ECTAB PO SCH (09:42)
[2017-03-13] MEDS: CALCIUM 600MG + VIT D 400 IU TAB PO SCH (09:42)
[2017-03-13] MEDS: DOXYCYCLINE HYCLATE 100 MG CAP PO SCH (09:42)
[2017-03-13] MEDS: METOPROLOL TARTRATE 25 MG TAB PO SCH (09:42)
[2017-03-13] MEDS: CHOLECALCIFEROL 1000 INTER.UNIT TAB PO SCH (09:42)
[2017-03-13] MEDS: CYANOCOBALAMIN 100 MCG TAB (VIT B-12) PO SCH (09:42)
[2017-03-13] MEDS: LEVETIRACETAM 500 MG TAB PO SCH (09:42)
[2017-03-13] MEDS: AMLODIPINE BESYLATE 5 MG TAB PO SCH (09:42)
--- NOTE | 2017-03-13 11:03 | Progress Note ---
Subjective Date of Service: March 13, 2017. Subjective Pt evaluation today including: conversation w/ patient, physical exam, lab review, review of studies, review of inpatient medication list Saw/examined the patient in room 379 No problems/issues to note today; R hip pain controlled good PO intake, +BM Problem List Medical Problems: (1) Altered mental status Status: Acute (2) Bradycardia Status: Acute (3) Expressive aphasia Status: Acute (4) Fall Status: Acute (5) Possible urinary tract infection Status: Acute (6) Receptive aphasia Status: Acute (7) Skin tear of right hand without complication Status: Acute Review of Systems Constitutional: No chills, No fever Respiratory: + dyspnea on exertion (chronic), No cough, No shortness of breath Cardiac: No chest pain, No edema, No palpitations Abdomen: No GI bleeding, No constipation, No diarrhea, No nausea, No pain, No vomiting Musculoskeletal: No joint pain (controlled with medications) Medications Current Inpatient Medications Medications (Trade) Dose Ordered Sig/Zaina Route Start Time Stop Time Status Last Admin Dose Admin Ondansetron HCl (Zofran Inj) 4 mg Q6H PRN IV 03/06/17 12:15 04/05/17 12:14 03/06/17 18:33 4 MG Hydromorphone HCl (Dilaudid Inj) 0.25 mg Q4H PRN IV 03/06/17 12:15 03/20/17 12:14 03/07/17 09:07 0.25 MG Naloxone HCl (Narcan Inj) 0.1 mg PRN PRN IV 03/06/17 12:15 04/05/17 12:14 Senna/Docusate Sodium (Senokot S Tab) 2 tab HS PO 03/06/17 21:00 04/05/17 20:59 03/12/17 21:23 2 TAB Polyethylene (Miralax Powder Packet) 17 gm DAILY PRN PO 03/06/17 12:15 04/05/17 12:14 03/09/17 08:47 17 GM Magnesium Hydroxide (Milk Of Magnesia Susp) 30 ml DAILY PRN PO 03/06/17 12:15 04/05/17 12:14 03/09/17 09:02 30 ML Bisacodyl (Dulcolax Supp) 10 mg DAILY PRN OH 03/06/17 12:15 04/05/17 12:14 03/09/17 07:48 10 MG Sodium Biphosphate/ Sodium Phosphate (Fleet Enema) 132 ml DAILY PRN OH 03/06/17 12:15 04/05/17 12:14 Acetaminophen (Tylenol Tab) 650 mg Q4H PRN PO 03/06/17 12:45 04/05/17 12:44 03/06/17 20:17 650 MG Insulin Glargine (Lantus Solostar Pen) 6 unit Q12 SC 03/06/17 21:00 04/05/17 20:59 03/13/17 09:38 6 UNIT Glucose (Glucose 40% Gel) 15-30 GRAMS 15 GRAMS... UD PRN PO 03/06/17 12:45 04/05/17 12:44 Glucose (Glucose Chew Tab) 4-8 Tablets 4 Tabl... UD PRN PO 03/06/17 12:45 04/05/17 12:44 Dextrose (Dextrose 50% 50ML Syringe) 25-50ML OF 50% DW IV FOR... UD PRN IV 03/06/17 12:45 04/05/17 12:44 Glucagon (Glucagon Inj) 1 mg UD PRN SQ 03/06/17 12:45 04/05/17 12:44 Amlodipine Besylate (Norvasc Tab) 5 mg DAILY PO 03/07/17 09:00 04/06/17 08:59 03/13/17 09:42 5 MG Artificial Tears (Lacri-Lube Oph Oint) 1 appln QID PRN OP 03/06/17 12:45 04/05/17 12:44 Citalopram Hydrobromide (celeXA TAB) 20 mg HS PO 03/06/17 21:00 04/05/17 20:59 03/12/17 21:06 20 MG Cyanocobalamin (Vitamin B-12 Tab) 100 mcg DAILY PO 03/07/17 09:00 04/06/17 08:59 03/13/17 09:42 100 MCG Levetiracetam (Keppra Tab) 750 mg BID PO 03/06/17 21:00 04/05/17 20:59 03/13/17 09:42 750 MG Metoprolol Tartrate (Lopressor Tab) 25 mg DAILY PO 03/07/17 09:00 04/06/17 08:59 03/13/17 09:42 25 MG Multivitamins (Multivitamin Tab) 1 tab DAILY PO 03/07/17 09:00 04/06/17 08:59 03/13/17 09:41 1 TAB Simvastatin (Zocor Tab) 20 mg QPM PO 03/06/17 21:00 04/05/17 20:59 03/12/17 21:23 20 MG Calcium/Vitamin D (Caltrate Plus Tab) 1 tab BID PO 03/06/17 21:00 04/05/17 20:59 03/13/17 09:42 1 TAB Lisinopril (Zestril Tab) 5 mg DAILY PO 03/07/17 09:00 04/06/17 08:59 03/13/17 09:41 5 MG Cholecalciferol (Vitamin D Tab) 1,000 inter.unit DAILY PO 03/07/17 09:00 04/06/17 08:59 03/13/17 09:42 1,000 INTER.UNIT Zolpidem Tartrate (Ambien Tab) 5 mg HS PRN PO 03/06/17 21:30 04/05/17 21:29 03/12/17 21:22 5 MG Oxycodone HCl (Roxicodone Immediate Rel Tab) 1 TABLET FOR PAIN RATING... Q4H PRN PO 03/07/17 16:15 03/21/17 16:14 Tramadol HCl (Ultram Tab) 1 TABLET FOR PAIN RATING... Q4H PRN PO 03/07/17 16:15 04/06/17 16:14 03/08/17 17:25 50 MG Aspirin (Ecotrin Tab) 81 mg BID PO 03/07/17 21:00 04/06/17 20:59 03/13/17 09:42 81 MG Insulin Aspart (novoLOG ASPART) SLIDING SCALE If C... ACHS SC 03/08/17 08:00 04/07/17 07:59 03/13/17 09:39 2 UNITS Doxycycline Hyclate (Vibramycin Cap) 100 mg BID PO 03/09/17 21:00 03/13/17 20:59 03/13/17 09:42 100 MG Objective Vital Signs Date Time Temp Pulse Resp B/P Pulse Ox O2 Delivery O2 Flow Rate FiO2 03/13/17 08:20 Room Air 03/13/17 07:51 37.0 95 18 172/67 94 Room Air 03/12/17 23:50 Room Air 03/12/17 23:25 37.0 84 16 148/72 93 Room Air 03/12/17 16:13 36.9 76 18 165/73 95 Room Air 03/12/17 15:30 Room Air Physical Exam General Appearance: no apparent distress Respiratory/Chest: chest non-tender, lungs clear, normal breath sounds, no respiratory distress, no accessory muscle use Cardiovascular: regular rate, rhythm, no edema, no murmur Abdomen: normal bowel sounds, non tender, soft Extremities: normal range of motion, non-tender, normal inspection, no pedal edema, no calf tenderness Neurologic/Psychiatric: no motor/sensory deficits, alert, normal mood/affect Laboratory Results Last 24 Hours Test 03/12/17 11:53 03/12/17 17:09 03/12/17 20:45 03/13/17 08:08 Bedside Glucose 134 mg/dl 106 mg/dl 226 mg/dl 136 mg/dl Assessment and Plan This is an 86 year old female with a PMH of seizure disorder, hx. of CVA, HTN, DM2, CKD stage 3, chronic allergic rhinitis vs. bronchitis, presents after a mechanical fall and found to have R hip fracture R Hip Fracture 03/13 POD #6 doing well, no constipation No pain, as it is controlled with medications d/c plan today 03/12 POD #5 no issues d/c plan for AM if bed available 03/11 POD #4 doing well, pain controlled plan is to d/c to [facility] 03/10 patient is doing well, POD #3 plan is to d/c to [facility] today 03/09 she's doing well, POD #2 plan is to discharge to [facility] in AM (03/10) instructions as per ortho, will d/c with doxycycline for possible bronchitis to total 5 days 03/08 s/p AMILCAR, POD #1 doing well, pain controlled PT/OT plan for rehab 03/07 patient lives alone, uses cane for ambulation at baseline She started ambulating after putting her cane down and had what seems like a mechanical fall imagining performed showing an acute R femoral neck fracture pt. with osteoporosis at baseline - uses calcium + vitamin D + Prolia appreciate orthopedic input - plan for surgical intervention today (03/07) patient does have some dyspnea with exertion; seems like a chronic issue, she has been seeing ENT and her PCP for a chronic cough as well she may proceed with surgery currently, her pain is controlled; continue IV Dilaudid PRN for pain; further management as per ortho post-operatively Cough, possible Bronchitis 03/08 will continue Doxycycline x5 days 03/07 has had ENT evaluation; possible allergies Her WBC elevated on presentation at 16k she was also hypoxic on admission started on doxycycline; WBC trending down to 12k today, she is not short of breath no coughing during my examination would continue abx. and O2 dinah-operatively Chronic Dyspnea on Exertion she states that she always feel short of breath with distances might be related to above - allergies vs. chronic bronchitis as noted in the H&P, echo was performed in 05/2016 - with mild AV stenosis, grade 1 diastolic dysfunction, with good LVEF will monitor, will need incentive spirometry to prevent atelectasis, early ambulation, etc. HTN periods of elevated blood pressure, likely related to pain overall, well controlled, can continue metoprolol, amlodipine, lisinopril Seizure Disorder last seizure in May of 2016 continue Keppra BID Hx. of CVA states in the early , she's had a CVA no residual deficits restart aspirin when okay with ortho DM2 fairly well controlled with Ha1c ~ 7.0 monitor for hypoglycemia with no PO intake today (03/07) continue Lantus and sliding scale will monitor for hyperglycemia post-operatively due to intra-operative steroid usage CKD stage 3 Creat is stable from baseline Avoid nephrotoxins Depression Continue Celexa HLD Continue statin DVT ppx SCDs, ASA DNR
[2017-03-13] MEDS ORDERED: NRV/10 PO (11:05)
[2017-03-13 11:34] VITALS: TEMP 37
[2017-03-13 11:52] VITALS: BP 151/69; PULSE 72; O2SAT 96
[2017-03-14] MEDS ORDERED: AMLODIPINE BESYLATE 5 MG TAB PO SCH (09:00)
== END 2017-03-13 13:34 | DRG 470 ==
LOC: ENRESERVTM → ENRESERVDT → EDBD 09:42 → C.EDB 09:44 → C.MSN 11:57
PROVIDERS: ADMIT Hospitalist; ATTEND Hospitalist
PROC: 0SR90JZ Replacement of Right Hip Joint with Synthetic Substitute, Open Approach (ICD-10-PCS; principal; 2017-03-07 12:45)
DX: S72.001A Fracture of unspecified part of neck of right femur, initial encounter for closed fracture (principal); W19.XXXA Unspecified fall, initial encounter; N18.3 Chronic kidney disease, stage 3 (moderate); Z80.1 Family history of malignant neoplasm of trachea, bronchus and lung; D72.829 Elevated white blood cell count, unspecified; Z79.82 Long term (current) use of aspirin; I67.9 Cerebrovascular disease, unspecified; G40.909 Epilepsy, unspecified, not intractable, without status epilepticus; E11.9 Type 2 diabetes mellitus without complications; Z82.3 Family history of stroke; Z80.8 Family history of malignant neoplasm of other organs or systems; I12.9 Hypertensive chronic kidney disease with stage 1 through stage 4 chronic kidney disease, or unspecified chronic kidney disease; Z86.73 Personal history of transient ischemic attack (TIA), and cerebral infarction without residual deficits; E78.5 Hyperlipidemia, unspecified; F32.9 Major depressive disorder, single episode, unspecified; E83.51 Hypocalcemia; S61.401A Unspecified open wound of right hand, initial encounter; R00.1 Bradycardia, unspecified

== ENCOUNTER 2017-11-16 08:28 | Inpatient (IN) | payer OTHER, MEDICARE ==
[~2017-11-16] VITALS: Ht 157.5 cm; Wt 65.1 kg
[~2017-11-16 08:28] MED LIST changes: +ARTIOIN OP; +CHOL1000 PO; -INSU1INJ INJ; -LSN40 PO; +LSN5 PO; +NRV/10 PO; -NRV5 PO; +NVLGI7030 SC; -POLY99.02 OP; +ULT50X PO
[2017-11-16] MEDS ORDERED: SODIUM CHLORIDE 0.9% 1000ML 1,000 ML IV STA (08:50)
[2017-11-16] MEDS ORDERED: VANCOMYCIN IV 1,000 MG in SODIUM CHLORIDE 0.9% 250ML 250 ML IV STA (08:50)
[2017-11-16] MEDS ORDERED: VANCOMYCIN CONSULT ACTIVE PRN ×2 (09:00→13:30)
--- NOTE | 2017-11-16 09:53 | DIAGNOSTIC IMAGING REPORT ---
CT R LOWER EXTREMITY WITHOUT CT DOSE: 573.17 mGy.cm CLINICAL HISTORY: Right hip cellulitis. Evaluate for osteomyelitis. TECHNIQUE: Helical images were acquired in the transverse plane. No intravenous contrast was administered. Sagittal and coronal reformatted images were acquired. A dose lowering technique was utilized adhering to the principles of ALARA. COMPARISON STUDY: Conventional radiographic study dated 03/07/2017 FINDINGS: There is a 5.5 cm pelvic calcification, likely representing a calcified fibroid. There are postsurgical changes of a total right hip arthroplasty. There is a fracture involving the posterior acetabular wall. There is artifact secondary to the patient's hardware. There is soft tissue thickening involving the lateral hip. There is fluid and gas within the soft tissues extending down to the level of the joint. There are areas of heterotopic ossification present. No definitive bony destructive changes are evident. There is right inguinal lymphadenopathy, possibly reactive, given the presumed infectious process IMPRESSION: 1. Gas and fluid collection within the lateral hip extending down to the level of the bone and joint. The collection measures approximately 11 cm in maximal diameter and is suspicious for an abscess 2. Postsurgical changes of a right hip arthroplasty with areas of heterotopic ossification 3. Fracture involving the posterior lip of the acetabulum 4. Right inguinal lymphadenopathy Electronically signed by: Navneet Hoskins M.D. 11/16/2017 9:52 AM Dictated Date/Time: 11/16/2017 9:45 AM
[2017-11-16 09:54] LABS: BASO % 0.1 %; BASO ABS # 0.02 K/uL (0-0.2); EOS % 0.6 %; EOS ABS # 0.09 K/uL (0-0.5); HEMATOCRIT 30.3 % (37-47); HEMOGLOBIN 10.3 g/dL (12.0-16.0); IG# 0.07 K/uL (0.00-0.02); LYMPH % 13.4 %; LYMPH ABS # 1.98 K/uL (1.2-3.4); MEAN CELL VOLUME 86.3 fL (80-100); MEAN CORPUSCULAR HEMOGLOBIN 29.3 pg (25-34); MONO % 5.5 %; MONO ABS # 0.82 K/uL (0.11-0.59); NEUT % 79.9 %; NEUT ABS # 11.84 K/uL (1.4-6.5); PLATELET COUNT 542 K/uL (130-400); RED CELL DISTRIBUTION WIDTH SD 47.6 fL (36.4-46.3); WHITE BLOOD COUNT 14.82 K/uL (4.8-10.8)
[2017-11-16] MEDS ORDERED: METO25TA56 PO (09:56)
[2017-11-16] MEDS ORDERED: CHOL1TAB2 PO (09:56)
[2017-11-16] MEDS ORDERED: ASPI81TA28 PO (09:56)
[2017-11-16] MEDS ORDERED: FURO-85 PO (09:56)
[2017-11-16] MEDS ORDERED: FERR1TAB13 PO (09:56)
[2017-11-16] MEDS ORDERED: DOCU100C31 PO (09:56)
[2017-11-16 10:06] LABS: CREATININE 1.46 mg/dl (0.60-1.20); POTASSIUM 4.6 mmol/L (3.5-5.1)
[2017-11-16 10:11] LABS: CKMB 0.7 ng/ml (0.5-3.6)
[2017-11-16 10:26] LABS: PTT PATIENT 26.1 SECONDS (21.0-31.0)
[2017-11-16] MEDS ORDERED: CLINDAMYCIN IV 600 MG in DEXTROSE 5% 50ML 50 ML IV ONE (10:45)
[2017-11-16] MEDS ORDERED: AZTREONAM 2000 MG in DEXTROSE 5% 100 ML IV STA (10:54)
[2017-11-16 11:12] VITALS: O2SAT 92; BMI 24.7
[2017-11-16] MEDS ORDERED: GLUCOSE 40% GEL 15 GM TUBE PO PRN (12:30)
[2017-11-16] MEDS ORDERED: DEXTROSE 50% 50 ML SYR IV PRN (12:30)
[2017-11-16] MEDS ORDERED: GLUCOSE 10 TABS/TUBE PO PRN (12:30)
[2017-11-16] MEDS ORDERED: GLUCAGON FOR INJ 1 MG VIAL SQ PRN (12:30)
--- NOTE | 2017-11-16 13:18 | History and Physical ---
History & Physical Date & Time of Service: Nov 16, 2017 at 11:30 Chief Complaint: Hip Pain Primary Care Physician: Molly Goldstein M.D. History of Present Illness Source: patient, clinic records, hospital records This is an 87yo F with a PMH of R hip fracture s/p hip replacement in February 2017, DM II, HTN, CKD III, HLD, vulvar cancer, h/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 Patient fell and fractured her R hip in February 2017 and had a hip replacement by Dr. Luu. A few months later, patient noticed some swelling on the lateral aspect of her hip and went to see surgeon who explained that there fluid present that could not be drained. Last month, patient noticed that this same area had opened up with clear drainage and a scab formed. Went to PCP and was given a course of bactrim and referred to [place] [facility]. Home health care nurses stop by for dressing changes. Wound has been draining purulent, serosanguineous fluid continuously over the past two days. Patient states that the area is tender to touch but she is still able to ambulate by walker. Lives alone. Was recently diagnosed with vulvar malignant neoplasm by Bailey mitchell but no further action has been taken based on patient's age and wishes. Denies any fever, chills, lightheadedness, headache, CP, nausea, vomiting, abdominal pain, LE swelling. Endorses SOB with exertion (chronic). Did not eat or take any medication this morning. Past Medical/Surgical History Medical Problems: (1) Anxiety disorder Status: Chronic (2) Cerebrovascular disease Permanent Comment: s/p stroke without significant residual Status: Chronic (3) CKD (chronic kidney disease) stage 3, GFR 30-59 ml/min Status: Chronic (4) Depression Status: Chronic (5) DM type 2 (diabetes mellitus, type 2) Status: Chronic (6) Hyperlipidemia Status: Chronic (7) Hypertension Status: Chronic (8) Osteoporosis Status: Chronic (9) PVD (peripheral vascular disease) Status: Chronic (10) Seizure disorder Status: Chronic (11) Vaginal cancer Status: Chronic Surgical Problems: (1) History of total hip replacement Status: Chronic (2) Hx of cataract surgery Status: Resolved (3) S/P tonsillectomy and adenoidectomy Status: Chronic (4) Status post appendectomy Status: Resolved (5) Status post cholecystectomy Status: Resolved Family History FH: lung cancer BROTHER FH: stroke FATHER Oral cancer MOTHER Social History Smoking Status: Never Smoker Marital Status: Housing status: lives alone Occupational Status: retired Immunizations History of Influenza Vaccine: Yes Influenza Vaccine Date: Jul 15, 2013 History of Tetanus Vaccine?: Yes History of Pneumococcal: Yes Pneumococcal Date: Sep 05, 2002 History of Hepatitis B Vaccine: No Multi-Drug Resistant Organisms History of MDRO: No Allergies Coded Allergies: Amoxicillin (Verified Allergy, Severe, CVA SYMPTOMS, 11/16/17) Penicillins (Unverified Allergy, Unknown, POSS CX OF CVA, 11/16/17) Risedronate (Unverified Allergy, Unknown, UNKNOWN, 11/16/17) Diphenhydramine (Unverified Adverse Reaction, Unknown, N&V, 11/16/17) Prednisone (Unverified Adverse Reaction, Unknown, HIGH BS, 11/16/17) Home Medications Scheduled Amlodipine Besylate (Amlodipine Besylate), 10 MG PO DAILY Aspirin (Aspirin Ec), 81 MG PO BIDM Calcium Carbonate-Vitamin D (Calcium), 1 TAB PO BID Cholecalciferol (Vitamin D-3), 1,000 UNITS PO DAILY Citalopram Hydrobromide (Citalopram Hydrobromide), 20 MG PO HS Cyanocobalamin (Vitamin B-12), 100 MCG PO DAILY Denosumab (Prolia), 60 MG SQ [id number] Ferrous Sulfate (Kp Ferrous Sulfate), 325 MG PO TIDM Furosemide (Lasix), 20 MG PO [id number] Insulin Aspart 70/30 (Novolog Mix 70/30), 14 UNITS SC QAM Insulin Aspart 70/30 (Novolog Mix 70/30), 8 UNITS SC QPM Levetiractam (Levetiracetam), 750 MG PO BID Metoprolol Tartrate (Lopressor) (Lopressor), 25 MG PO BID Multivitamin (Multivitamin), 1 TAB PO DAILY Simvastatin (Zocor), 20 MG PO QPM Scheduled PRN Docusate Sodium (Docusate Sodium), 100 MG PO BID PRN for Constipation Polyethylene Glycol 3350 (Miralax), 17 GM PO BID PRN for Constipation Zolpidem Tartrate (Ambien), 5 MG PO HS PRN for Sleep Review of Systems Ten systems reviewed and negative except as noted in the HPI. Physical Exam Vital Signs Date Time Temp Pulse Resp B/P (MAP) Pulse Ox O2 Delivery O2 Flow Rate FiO2 11/16/17 12:45 68 18 108/42 94 Room Air 11/16/17 11:36 72 11/16/17 11:31 71 18 127/42 93 Room Air 11/16/17 11:12 92 Room Air 11/16/17 11:00 72 20 120/55 92 Room Air 11/16/17 10:24 71 18 127/69 92 Room Air 11/16/17 09:25 78 18 136/48 97 Room Air 11/16/17 08:43 37.1 87 20 148/63 93 Room Air 11/16/17 08:39 86 General Appearance: WD/WN, no apparent distress, + pertinent finding (Resting comfortably in bed.) Head: normocephalic, atraumatic Eyes: normal inspection, PERRL, sclerae normal ENT: normal ENT inspection (hard of hearing), pharynx normal Neck: thyroid normal Respiratory/Chest: chest non-tender, lungs clear, normal breath sounds, no respiratory distress, no accessory muscle use Cardiovascular: regular rate, rhythm, no murmur, normal peripheral pulses Abdomen/GI: non tender, soft, no organomegaly Back: normal inspection Extremities/Musculoskelatal: + pertinent finding (R hip TTP, presence of deep wound draining foul smelling, serosanguinous fluid. ROM intact but painful .) Neurologic/Psych: no motor/sensory deficits, alert, normal mood/affect, oriented x 3 Skin: normal color, warm/dry, + pertinent finding (Presence of quarter-size wound on left plantar aspect of foot near 1 metatarsal. Bandaged. ) Diagnostics Laboratory Results Results Past 24 Hours Test 11/16/17 09:00 Range/Units White Blood Count 14.82 4.8-10.8 K/uL Red Blood Count 3.51 4.2-5.4 M/uL Hemoglobin 10.3 12.0-16.0 g/dL Hematocrit 30.3 37-47 % Mean Corpuscular Volume 86.3 80-100 fL Mean Corpuscular Hemoglobin 29.3 25-34 pg Mean Corpuscular Hemoglobin Concent 34.0 32-36 g/dl Platelet Count 542 130-400 K/uL Mean Platelet Volume 9.0 7.4-10.4 fL Neutrophils (%) (Auto) 79.9 % Lymphocytes (%) (Auto) 13.4 % Monocytes (%) (Auto) 5.5 % Eosinophils (%) (Auto) 0.6 % Basophils (%) (Auto) 0.1 % Neutrophils # (Auto) 11.84 1.4-6.5 K/uL Lymphocytes # (Auto) 1.98 1.2-3.4 K/uL Monocytes # (Auto) 0.82 0.11-0.59 K/uL Eosinophils # (Auto) 0.09 0-0.5 K/uL Basophils # (Auto) 0.02 0-0.2 K/uL RDW Standard Deviation 47.6 36.4-46.3 fL RDW Coefficient of Variation 15.0 11.5-14.5 % Immature Granulocyte % (Auto) 0.5 % Immature Granulocyte # (Auto) 0.07 0.00-0.02 K/uL Prothrombin Time 10.2 9.0-12.0 SECONDS Prothromb Time International Ratio 1.0 0.9-1.1 Activated Partial Thromboplast Time 26.1 21.0-31.0 SECONDS Partial Thromboplastin Ratio 1.0 Sodium Level 132 136-145 mmol/L Potassium Level 4.6 3.5-5.1 mmol/L Chloride Level 101 98-107 mmol/L Carbon Dioxide Level 24 21-32 mmol/L Anion Gap 7.0 3-11 mmol/L Blood Urea Nitrogen 28 7-18 mg/dl Creatinine 1.46 0.60-1.20 mg/dl Est Creatinine Clear Calc Drug Dose 23.0 ml/min Estimated GFR () 36.9 Estimated GFR (Non- 31.8 BUN/Creatinine Ratio 18.9 10-20 Random Glucose 124 70-99 mg/dl Calcium Level 10.0 8.5-10.1 mg/dl Total Creatine Kinase 50 26-192 U/L Creatine Kinase MB 0.7 0.5-3.6 ng/ml Creatine Kinase MB Ratio 1.4 0-3.0 Microbiology Results 11/16/17 Blood Culture, Received Pending 11/16/17 Blood Culture, Received Pending Diagnostic Radiology Lower extremity CT: IMPRESSION: 1. Gas and fluid collection within the lateral hip extending down to the level of the bone and joint. The collection measures approximately 11 cm in maximal diameter and is suspicious for an abscess 2. Postsurgical changes of a right hip arthroplasty with areas of heterotopic ossification 3. Fracture involving the posterior lip of the acetabulum 4. Right inguinal lymphadenopathy Impression Assessment and Plan This is an 87yo F with a PMH of R hip fracture s/p hip replacement in February 2017, DM II, HTN, CKD III, HLD, vulvar cancer, h/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 R hip abscess: -H/o R hip replacement in February 2017 -Has been following with [place] [facility] x 1 month -Lower extremity CT with gas and fluid collection extending to level of bone/ joint. Collection is ~11cm and is suspicious for abscess -Leukocytosis of 14.8. VS stable -Ortho consulted for evaluation and likely I&D -Wound care consulted -Empiric coverage with vanc, clinda, aztreonam -Blood and wound cultures pending MARIELA on CKD III: -Cr elevated to 1.46 (~1.1 baseline) -Likely pre-renal 2/2 decreased PO intake over last few days -Avoid nephrotoxic agents when able, renally dose antibiotics -IVF resuscitation HTN: -Normotensive -Cont metoprolol, amlodipine Chronic dyspnea on exertion: -Was evaluated during previous admission in February -Likely 2/2 deconditioning -PT/OT eval -Presence of mild grade 1 diastolic dysfunction on echo -CXR, EKG pending Vulvar malignant neoplasm: -Diagnosed with vulvar mass by Dr. Desir in Jul 2017 -Not biopsied but presumed to be malignant -Excision not recommended -Referral to [facility] coach onc in [place] offered but patient not interested Generalized seizure disorder: -Stable -Cont home dose keppra DM II: -A1c of 7.0 in February 2017 -Repeat hgb a1c -Hold home agents -Basal bolus regimen while in-patient -BG checks AC HS Depression: -Cont celexa HLD: -Cont statin H/o CVA: -Stable, no residual deficit -Baby aspirin DVT Ppx: SCDs Code status: DNR per my discussion with patient PCP: [facility] Dispo: Admitted to med surg. Discharge planning ordered (patient is >80 and lives alone, also requires home health) Patient seen in collaboration with Dr. Lane. Please see addendum. ADDENDUM: This is an 87 year old female with a PMH of recent R hip surgery in February 2017, hx. of vulvovaginal cancer, DM2, HTN, HLD, CKD stage 3 - presents with R hip drainage, swelling, edema, pain. States that she has been walking with a walker at baseline. Coming from [facility] in [place]. Denies fevers/chills - states that she's had drainage from the R hip fluid collection - draining a clear/whitish fluid as per patient. Physical exam: GEN: Frail, elderly, thin lady, in no distress CVS: +S1, S2, RRR, +3/6 holosystolic murmur LUNGS: lipoma on the L chest wall, pectus carinatum, CTA b/l, no wheezing EXT/SKIN: R hip wound, foul-smelling, currently bandaged Plan CT of the R hip shows abscess with possible infection down to the bone Will add Vanco, Clindamycin, Aztreonam for broad coverage may need I&D, though wound is now draining on its own could consider an MRI for evaluation of osteomyelitis ID consultation placed wound care consultation placed ortho consulted IVFs for her dehydration/acute kidney injury Level of Care Med/Surg Advanced Directives Existing Living Will: No Existing Power of Compatibility Test Engineer: Yes (MARIA FERNANDA SON ) Resuscitation Status DO NOT RESUSCITATE VTE Prophylaxis VTE Risk Assessment Done? Y/N: Yes Risk Level: Moderate Given or contraindicated: SCD's Social Service Consult >80 yr.& Lives Alone, Receiving Home Health
[2017-11-16] MEDS ORDERED: AZTREONAM CONSULT ACTIVE PRN (13:30)
[2017-11-16] MEDS ORDERED: CLINDAMYCIN CONSULT ACTIVE PRN (13:30)
--- NOTE | 2017-11-16 14:45 | DIAGNOSTIC IMAGING REPORT ---
CHEST ONE VIEW PORTABLE HISTORY: Short of breath. COMPARISON: Chest 03/06/2017. FINDINGS: Rotated study. The right lung is clear. No pneumothorax. The heart is mildly enlarged. This remains unchanged. Left basilar density which obscures the left hemidiaphragm. No evidence for pulmonary edema. 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 Small hiatus hernia persists. IMPRESSION: Rotated study. There is a left basilar density which obscures the left hemidiaphragm. This may represent a pneumonia or pleural effusion. PA and lateral views of the chest can be performed for confirmation. Electronically signed by: Mario Aragon M.D. 11/16/2017 2:43 PM Dictated Date/Time: 11/16/2017 2:29 PM
--- NOTE | 2017-11-16 14:46 | EMERGENCY ROOM VISIT NOTE ---
History Report prepared by Dori: Nikky Cruz Under the Supervision of: Dr. Francisco J Huber D.O. First contact with patient: 08:34 Stated Complaint: HIP PAIN History of Present Illness The patient is an 87 year old female who presents to the Emergency Room with complaints of persistent right hip wound for one month. The patient reports a lump developed on her right hip after a total hip replacement. She has a total hip replacement due to a fall in which she broke her right hip. She reported to the orthopedic doctor who performed her surgery who informed her that there was fluid present that could not be drained. She states the lump progressed into an open sore and has been this way for about a month. She was seen by her PCP who referred her to a wound center in [place], [place]. She states they cleaned out the wound and removed black purulence. She reports not being able to actually see the sore. She notes the wound began oozing fluid this morning that ran down her leg to the floor. She currently rates her pain a 5/10 in severity. 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 She follows up with oncology at [facility]. She has not eaten or taken her medication/insulin this morning. Source of History: patient Onset: one month Position: other (right hip) Symptom Intensity: 5/10 Quality: other (wound) Timing: other (persistent) Note: She notes oozing fluid from open would on right hip. Review of Systems See HPI for pertinent positives & negatives. A total of 10 systems reviewed and were otherwise negative. 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 Surgical Problems: (1) History of total hip replacement (2) Hx of cataract surgery (3) S/P tonsillectomy and adenoidectomy (4) Status post appendectomy (5) Status post cholecystectomy Family History FH: lung cancer BROTHER FH: stroke FATHER Oral cancer MOTHER Social History Smoking Status: Never Smoker Smokeless Tobacco Use: No Alcohol Use: none Drug Use: none Marital Status: Housing Status: lives with family Occupation Status: retired Current/Historical Medications Scheduled Amlodipine Besylate (Amlodipine Besylate), 10 MG PO DAILY Aspirin (Aspirin Ec), 81 MG PO BIDM Calcium Carbonate-Vitamin D (Calcium), 1 TAB PO BID Cholecalciferol (Vitamin D-3), 1,000 UNITS PO DAILY Citalopram Hydrobromide (Citalopram Hydrobromide), 20 MG PO HS Cyanocobalamin (Vitamin B-12), 100 MCG PO DAILY Denosumab (Prolia), 60 MG SQ [id number] Ferrous Sulfate (Kp Ferrous Sulfate), 325 MG PO TIDM Furosemide (Lasix), 20 MG PO 3XWK Insulin Aspart 70/30 (Novolog Mix 70/30), 14 UNITS SC QAM Insulin Aspart 70/30 (Novolog Mix 70/30), 8 UNITS SC QPM Levetiractam (Levetiracetam), 750 MG PO BID Metoprolol Tartrate (Lopressor) (Lopressor), 25 MG PO BID Multivitamin (Multivitamin), 1 TAB PO DAILY Simvastatin (Zocor), 20 MG PO QPM Scheduled PRN Docusate Sodium (Docusate Sodium), 100 MG PO BID PRN for Constipation Polyethylene Glycol 3350 (Miralax), 17 GM PO BID PRN for Constipation Zolpidem Tartrate (Ambien), 5 MG PO HS PRN for Sleep Allergies Coded Allergies: Amoxicillin (Verified Allergy, Severe, CVA SYMPTOMS, 11/16/17) Penicillins (Unverified Allergy, Unknown, POSS CX OF CVA, 11/16/17) Risedronate (Unverified Allergy, Unknown, UNKNOWN, 11/16/17) Diphenhydramine (Unverified Adverse Reaction, Unknown, N&V, 11/16/17) Prednisone (Unverified Adverse Reaction, Unknown, HIGH BS, 11/16/17) Physical Exam Vital Signs Date Time Temp Pulse Resp B/P (MAP) Pulse Ox O2 Delivery O2 Flow Rate FiO2 11/16/17 13:56 72 18 121/60 94 Room Air 11/16/17 12:45 68 18 108/42 94 Room Air 11/16/17 11:36 72 11/16/17 11:31 71 18 127/42 93 Room Air 11/16/17 11:12 92 Room Air 11/16/17 11:00 72 20 120/55 92 Room Air 11/16/17 10:24 71 18 127/69 92 Room Air 11/16/17 09:25 78 18 136/48 97 Room Air 11/16/17 08:43 37.1 87 20 148/63 93 Room Air 11/16/17 08:39 86 Physical Exam CONSTITUTIONAL/VITAL SIGNS: Reviewed / noted above. GENERAL: Non-toxic in appearance. INTEGUMENTARY: Warm, dry, and [place]. There is a large open wound to right lateral thigh. Measures about two inches in diameter with surrounding erythema. Foul smelling. HEAD: Normocephalic. EYES: without scleral icterus or trauma. ENT/OROPHARYNX: clear and moist. LYMPHADENOPATHY/NECK: Is supple without lymphadenopathy or meningismus. RESPIRATORY: Lungs clear and equal. CARDIOVASCULAR: Regular rate and rhythm. GI/ABDOMEN: Soft and nontender. No organomegaly or pulsatile mass. No rebound or guarding. Normal bowel sounds. EXTREMITIES: Warm and well perfused. BACK: No CVA tenderness. NEUROLOGICAL: Intact without focal deficits. PSYCHIATRIC: normal affect. MUSCULOSKELETAL: Normally developed with good muscle tone. Medical Decision & Procedures ER Provider Diagnostic Interpretation: Radiology results as stated below per my review and radiologist interpretation: CT R LOWER EXTREMITY WITHOUT CT DOSE: 573.17 mGy.cm CLINICAL HISTORY: Right hip cellulitis. Evaluate for osteomyelitis. TECHNIQUE: Helical images were acquired in the transverse plane. No intravenous contrast was administered. Sagittal and coronal reformatted images were acquired. A dose lowering technique was utilized adhering to the principles of ALARA. COMPARISON STUDY: Conventional radiographic study dated 03/07/2017 FINDINGS: There is a 5.5 cm pelvic calcification, likely representing a calcified fibroid. There are postsurgical changes of a total right hip arthroplasty. There is a fracture involving the posterior acetabular wall. There is artifact secondary to the patient's hardware. There is soft tissue thickening involving the lateral hip. There is fluid and gas within the soft tissues extending down to the level of the joint. There are areas of heterotopic ossification present. No definitive bony destructive changes are evident. There is right inguinal lymphadenopathy, possibly reactive, given the presumed infectious process IMPRESSION: 1. Gas and fluid collection within the lateral hip extending down to the level of the bone and joint. The collection measures approximately 11 cm in maximal diameter and is suspicious for an abscess 2. Postsurgical changes of a right hip arthroplasty with areas of heterotopic ossification 3. Fracture involving the posterior lip of the acetabulum 4. Right inguinal lymphadenopathy Electronically signed by: Navneet Hoskins M.D. 11/16/2017 9:52 AM Dictated Date/Time: 11/16/2017 9:45 AM Laboratory Results 11/16/17 09:00 Red Blood Count 3.51, Mean Corpuscular Volume 86.3, Mean Corpuscular Hemoglobin 29.3, Mean Corpuscular Hemoglobin Concent 34.0, Mean Platelet Volume 9.0, Neutrophils (%) (Auto) 79.9, Lymphocytes (%) (Auto) 13.4, Monocytes (%) (Auto) 5.5, Eosinophils (%) (Auto) 0.6, Basophils (%) (Auto) 0.1, Neutrophils # (Auto) 11.84, Lymphocytes # (Auto) 1.98, Monocytes # (Auto) 0.82, Eosinophils # (Auto) 0.09, Basophils # (Auto) 0.02 11/16/17 09:00 Test 11/16/17 09:00 White Blood Count 14.82 K/uL (4.8-10.8) Red Blood Count 3.51 M/uL (4.2-5.4) Hemoglobin 10.3 g/dL (12.0-16.0) Hematocrit 30.3 % (37-47) Mean Corpuscular Volume 86.3 fL (80-100) Mean Corpuscular Hemoglobin 29.3 pg (25-34) Mean Corpuscular Hemoglobin Concent 34.0 g/dl (32-36) Platelet Count 542 K/uL (130-400) Mean Platelet Volume 9.0 fL (7.4-10.4) Neutrophils (%) (Auto) 79.9 % Lymphocytes (%) (Auto) 13.4 % Monocytes (%) (Auto) 5.5 % Eosinophils (%) (Auto) 0.6 % Basophils (%) (Auto) 0.1 % Neutrophils # (Auto) 11.84 K/uL (1.4-6.5) Lymphocytes # (Auto) 1.98 K/uL (1.2-3.4) Monocytes # (Auto) 0.82 K/uL (0.11-0.59) Eosinophils # (Auto) 0.09 K/uL (0-0.5) Basophils # (Auto) 0.02 K/uL (0-0.2) RDW Standard Deviation 47.6 fL (36.4-46.3) RDW Coefficient of Variation 15.0 % (11.5-14.5) Immature Granulocyte % (Auto) 0.5 % Immature Granulocyte # (Auto) 0.07 K/uL (0.00-0.02) Prothrombin Time 10.2 SECONDS (9.0-12.0) Prothromb Time International Ratio 1.0 (0.9-1.1) Activated Partial Thromboplast Time 26.1 SECONDS (21.0-31.0) Partial Thromboplastin Ratio 1.0 Anion Gap 7.0 mmol/L (3-11) Est Creatinine Clear Calc Drug Dose 23.0 ml/min Estimated GFR () 36.9 Estimated GFR (Non- 31.8 BUN/Creatinine Ratio 18.9 (10-20) Calcium Level 10.0 mg/dl (8.5-10.1) Total Creatine Kinase 50 U/L (26-192) Creatine Kinase MB 0.7 ng/ml (0.5-3.6) Creatine Kinase MB Ratio 1.4 (0-3.0) Laboratory results as stated above per my review. Medications Administered Medications (Trade) Dose Ordered Sig/Zaina Route Start Time Stop Time Status Last Admin Dose Admin Sodium Chloride 1,000 ml @ 200 mls/hr Q5H STAT IV 11/16/17 08:50 11/16/17 13:49 DC 11/16/17 09:23 200 MLS/HR Vancomycin HCl 1000 mg/Sodium Chloride 270 ml @ 125 mls/hr NOW STAT IV 11/16/17 08:50 11/16/17 10:59 DC 11/16/17 09:23 125 MLS/HR Clindamycin Phosphate 600 mg/ Dextrose 54 ml @ 100 mls/hr ONE ONCE IV 11/16/17 10:45 11/16/17 11:17 DC 11/16/17 10:55 100 MLS/HR Aztreonam 2000 mg/ Dextrose 110 ml @ 110 mls/hr NOW STAT IV 11/16/17 10:54 11/16/17 11:53 DC 11/16/17 11:31 110 MLS/HR ED Course 0844: Previous medical records were reviewed. The patient was evaluated in room B3B. A complete history and physical examination was performed. 0850: Ordered Vancomycin HCl 1, 000 mg/Sodium Chloride 270 ml @ 125 mls/hr IV and Sodium Chloride 1,000 ml @ 200 mls/hr IV 1044: I spoke with Lian Mo PA-C. We discussed the patient's case. The patient will be evaluated by the [facility] for further management. 1045: Ordered Clindamycin Phosphate 600 mg/Dextrose 54 ml @ 100 mls/hr IV 1054: Ordered Aztreonam 2,000 mg/Dextrose 110 ml/110 mls/hr IV 1103: I spoke with Jake Nagy PA-C. We discussed the patient's case. The patient will be further evaluated. 1126: I reassessed the patient at this time. She is resting. I discussed the results and treatment plan with the patient. I answered all pertaining questions that she had. She expressed understanding and verbalized agreement. The patient will be further evaluated. Medical Decision Differential diagnosis: Etiologies such as cellulitis, abscess, MRSA infection, DVT, necrotizing fasciitis, dermatitis, drug eruption, as well as others were entertained.. This is a 87-year-old female who presents to the ED with a chief complaint of right hip infection. The patient broke her hip in February and had a right hip replacement by Dr. Luu. Over the past month she has had a sore in the right hip area. She has been seeing [facility] for this. Today and yesterday she had fluid draining from the area and came in for evaluation. The patient's exam reveals a 2 cm diameter wound in the right hip that is foul-smelling and draining a small amount of discharge. CT scan of the hip reveals an 11 cm abscess that is filled with gas and fluid down to the hip joint. White blood cell count is 14.8. The BUN is 20 and creatinine is 1.4. The patient was treated with IV vancomycin, IV aztreonam and IV clindamycin as well as some IV fluids. I spoke with the hospitalist as well as orthopedics about the patient. The patient will be admitted. Medication Reconcilliation Current Medication List: was personally reviewed by me Blood Pressure Screening Patient's blood pressure: Normal blood pressure Consults Time Called: 1032 Consulting Physician: Lian Mo PA-C Returned Call: 1044 I spoke with Lian Mo PA-C. We discussed the patient's case. The patient will be evaluated by the [facility] for further management. Additional Consults: Time Called: 1031 Consulted Physician: Jake Nagy PA-C Returned Call: 1102 Additional Comments: I spoke with Jake Nagy PA-C. We discussed the patient's case. The patient will be further evaluated. Impression Primary Impression: Abscess of right hip Additional Impression: Cellulitis of right hip Scribe Attestation The scribe's documentation has been prepared under my direction and personally reviewed by me in its entirety. I confirm that the note above accurately reflects all work, treatment, procedures, and medical decision making performed by me. Departure Information Dispostion Being Evaluated By Hospitalist Referrals Molly Goldstein M.D. (PCP) Problem Qualifiers
[2017-11-16 14:59] VITALS: BMI 24.7
[2017-11-16 15:00] VITALS: BP 135/67; PULSE 71; TEMP 36.8; O2SAT 91
--- NOTE | 2017-11-16 15:18 | Progress Note ---
Progress Note Date of Service Nov 16, 2017. Progress Note ID Consult Dictated [id number] A/P: 1. Pos op infection - right hip abscess 2. Leukocytosis -Add dapto, conitnue emperic abx -Check wound cultures -Blood cultures pending, ortho eval pending -Thank you
[2017-11-16] MEDS ORDERED: DAPTOmycin IV 300 MG in SODIUM CHLORIDE 0.9% 50ML 50 ML IV SCH (15:30)
[2017-11-16] MEDS: SODIUM CHLORIDE 0.9% 1000ML 1,000 ML IV SCH ×2 (15:46→23:42)
[2017-11-16] MEDS ORDERED: DAPTOmycin IV 300 MG in SYRINGE 0 ML IV SCH (16:15)
[2017-11-16 16:31] VITALS: Ht 157.5 cm; Wt 65.1 kg
--- NOTE | 2017-11-16 16:45 | Pharmacy Progress Note ---
Pharmacy Antibiotic Consult Date of Service: Nov 16, 2017. Pharmacy Dosing Scope Pharmacy is consulted to initiate AZTREONAM, CLINDAMYCIN, VANCOMYCIN IV dosing therapy, order appropriate labs and adjust drug dose/frequency. Subjective The patient is a 87 year old female admitted on Nov 16, 2017 at 11:30 with infection R hip Objective Height (Feet): 5 Height (Inches): 2.00 Weight (Kilograms): 61.300 Lab Results (24hrs): Test 11/16/17 09:00 White Blood Count 14.82 K/uL (4.8-10.8) Red Blood Count 3.51 M/uL (4.2-5.4) Hemoglobin 10.3 g/dL (12.0-16.0) Hematocrit 30.3 % (37-47) Mean Corpuscular Volume 86.3 fL (80-100) Mean Corpuscular Hemoglobin 29.3 pg (25-34) Mean Corpuscular Hemoglobin Concent 34.0 g/dl (32-36) Platelet Count 542 K/uL (130-400) Mean Platelet Volume 9.0 fL (7.4-10.4) Neutrophils (%) (Auto) 79.9 % Lymphocytes (%) (Auto) 13.4 % Monocytes (%) (Auto) 5.5 % Eosinophils (%) (Auto) 0.6 % Basophils (%) (Auto) 0.1 % Neutrophils # (Auto) 11.84 K/uL (1.4-6.5) Lymphocytes # (Auto) 1.98 K/uL (1.2-3.4) Monocytes # (Auto) 0.82 K/uL (0.11-0.59) Eosinophils # (Auto) 0.09 K/uL (0-0.5) Basophils # (Auto) 0.02 K/uL (0-0.2) RDW Standard Deviation 47.6 fL (36.4-46.3) RDW Coefficient of Variation 15.0 % (11.5-14.5) Immature Granulocyte % (Auto) 0.5 % Immature Granulocyte # (Auto) 0.07 K/uL (0.00-0.02) Prothrombin Time 10.2 SECONDS (9.0-12.0) Prothromb Time International Ratio 1.0 (0.9-1.1) Activated Partial Thromboplast Time 26.1 SECONDS (21.0-31.0) Partial Thromboplastin Ratio 1.0 Sodium Level 132 mmol/L (136-145) Potassium Level 4.6 mmol/L (3.5-5.1) Chloride Level 101 mmol/L (98-107) Carbon Dioxide Level 24 mmol/L (21-32) Anion Gap 7.0 mmol/L (3-11) Blood Urea Nitrogen 28 mg/dl (7-18) Creatinine 1.46 mg/dl (0.60-1.20) Est Creatinine Clear Calc Drug Dose 23.0 ml/min Estimated GFR () 36.9 Estimated GFR (Non- 31.8 BUN/Creatinine Ratio 18.9 (10-20) Random Glucose 124 mg/dl (70-99) Calcium Level 10.0 mg/dl (8.5-10.1) Total Creatine Kinase 50 U/L (26-192) Creatine Kinase MB 0.7 ng/ml (0.5-3.6) Creatine Kinase MB Ratio 1.4 (0-3.0) Micro Results: 11/16 blood x2 pending Recent Pertinent Medications Item Value Date Time Aztreonam 1000 mg/ 110 ml @ 110 mls/hr 11/16/17 2000 Dextrose Q8H/IV Aztreonam 2000 mg/ 110 ml @ 110 mls/hr 11/16/17 1054 Dextrose NOW STAT/IV 11/16/17 1131 Clindamycin 54 ml @ 100 mls/hr 11/16/17 1045 Phosphate 600 mg/ ONE ONCE/IV 11/16/17 1055 Dextrose Vancomycin HCl 270 ml @ 125 mls/hr 11/16/17 0850 1000 mg/Sodium NOW STAT/IV 11/16/17 0923 Chloride Assessment & Plan Aztreonam, clindamycin ,vancomycin ordered. Vanco will be dose empirically based on levels (if it is to be continued) Goal trough level estimate: between 15-20 - [] mcg/mL. Random level has been ordered for: 11/17/17 am labs. Note: Dr Mantilla added daptomycin. Unclear if previous 3 antibiotics are all to be continued. Pharmacy will continue to follow and will adjust dose/frequency as necessary. Thank you
[2017-11-16] MEDS ORDERED: INSULIN ASPART 100 UNITS/ML 3 ML PEN SC SCH (17:15)
[2017-11-16] MEDS ORDERED: FERROUS SULFATE 325 MG PO SCH (17:45)
[2017-11-16] MEDS ORDERED: NURSING DECISION MEDICATION ORDER SCH ×2 (17:45→19:00)
--- NOTE | 2017-11-16 17:57 | INFECT. DISEASE CONSULTATION ---
DATE OF CONSULTATION: 11/16/2017 HISTORY OF PRESENT ILLNESS: This is an 87-year-old female who was admitted after she had worsening right hip pain and purulent drainage from the area. She had a hip replacement in February after a fracture and states she was doing well until a few months postoperatively when she noticed some wound dehiscence and drainage of fluid. She was then given a course of Bactrim by her primary care physician and sent to [facility]. She states she has been following there for some time. She denies having a wound VAC. She does not know if any cultures were positive on an outpatient basis. She states that she noticed worsening purulent drainage over the past 2 days. She denies any trauma to the area. She denies any fevers or chills. She states that the hip is sore. She was subsequently sent to the ER and was placed on intravenous antibiotics. She is currently on aztreonam, vancomycin and clindamycin. Orthopedic consult is pending. 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 She currently denies any chest pain, cough, shortness of breath, nausea, vomiting, diarrhea or abdominal pain. She has no urinary symptoms. She is tolerating her antibiotics well. She is currently n.p.o. pending an orthopedic evaluation, and her only complaint is that she is hungry and would like something to eat. She does admit to some pain from the right hip and does admit to continued purulent drainage. Her remaining review of systems is unremarkable. PAST MEDICAL HISTORY: Significant for anxiety, history of CVA, chronic kidney disease, depression, type 2 diabetes, high cholesterol, hypertension, osteoporosis, peripheral vascular disease, seizure disorder, GANG PUSHER malignancy. PAST SURGICAL HISTORY: Significant for right total hip replacement in February, cataract surgery, tonsillectomy, adenoidectomy, appendectomy, cholecystectomy. FAMILY HISTORY: Noncontributory. SOCIAL HISTORY: Negative for tobacco use, alcohol use or drug use. ALLERGIES: PENICILLIN, BENADRYL AND PREDNISONE. MEDICATIONS: Include vitamin D, vitamin B, Norvasc, Lantus, Celexa, Keppra, Lopressor, Zocor, Caltrate, iron, insulin, MiraLax, clindamycin, aztreonam, Colace, Ambien, Tylenol, Zofran, and vancomycin. PHYSICAL EXAMINATION: VITAL SIGNS: She is afebrile, pulse 71, respiratory rate 18, blood pressure 135/67, oxygen saturation is 91% to 94% on room air. GENERAL: She is awake, alert and oriented x3. She is in no acute distress. HEENT: Mucous membranes are dry. Extraocular muscles are intact. HEART: Regular. LUNGS: Clear. There is benign mass over the left chest wall which she states some changes, is not erythematous or tender to palpation. ABDOMEN: Soft and nondistended. EXTREMITIES: There is no lower extremity edema. SKIN: Without rash. Examination of the right hip reveals the dressing to be saturated with foul smelling purulent drainage. There is surrounding warmth and erythema. LABORATORY STUDIES: CBC today reveals a white blood cell count of 14.8, hemoglobin 10.3 and platelets are 542. Chemistry panel reveals a sodium of 132, potassium 4.6, chloride 101, bicarbonate 24, BUN 28, creatinine 1.4, glucose is 124. Blood cultures are pending. No wound culture was obtained. CT of the lower extremity does reveal fracture to be noted, hardware is noted. There is gas and fluid collection, measuring 11 cm which is suspicious for abscess. ASSESSMENT AND PLAN: Postoperative right hip infection with 11 cm abscess. At this time, she will remain on broad spectrum antibiotics. I will place her on daptomycin empirically secondary to her underlying chronic kidney disease. Wound culture will be obtained. Blood cultures are pending. The orthopedic evaluation is pending.
[2017-11-16] MEDS ORDERED: CLINDAMYCIN IV 600 MG in DEXTROSE 5% 50ML 50 ML IV SCH (18:00)
[2017-11-16] MEDS: FERROUS SULFATE 325 MG TAB PO SCH (18:59)
[2017-11-16 20:00] VITALS: BP 148/73; PULSE 71
[2017-11-16] MEDS: INSULIN ASPART 100 UNITS/ML 3 ML PEN SC SCH (20:42)
[2017-11-16] MEDS: INSULIN GLARGINE SOLOSTAR 100 UNITS/ML 3 ML PEN SC SCH (20:43)
[2017-11-16] MEDS: SIMVASTATIN 20 MG TAB PO SCH (20:45)
[2017-11-16] MEDS: CALCIUM 600MG + VIT D 400 IU TAB PO SCH (20:46)
[2017-11-16] MEDS: METOPROLOL TARTRATE 25 MG TAB PO SCH (20:46)
[2017-11-16] MEDS: LEVETIRACETAM 500 MG TAB PO SCH (20:47)
[2017-11-16] MEDS: ZOLPIDEM TARTRATE 5 MG TAB PO PRN (20:56)
[2017-11-16] MEDS: DOCUSATE SODIUM 100 MG CAP PO PRN (20:56)
[2017-11-16] MEDS ORDERED: CITALOPRAM 20 MG TAB PO SCH (21:00)
[2017-11-16] MEDS: AZTREONAM IV 1,000 MG in DEXTROSE 5% 100ML IV SCH (21:16)
[2017-11-16] MEDS ORDERED: LORAZEPAM 0.5 MG TAB PO ONE (22:30)
[2017-11-16 23:08] VITALS: BP 148/68; PULSE 75; TEMP 37; O2SAT 95
[2017-11-17] MEDS ORDERED: INSULIN ASPART 100 UNITS/ML 3 ML PEN SC SCH
[2017-11-17] MEDS: AZTREONAM IV 1,000 MG in DEXTROSE 5% 100ML IV SCH ×3 (03:50→21:35)
[2017-11-17 07:18] LABS: HEMATOCRIT 27.3 % (37-47); MEAN CELL VOLUME 86.9 fL (80-100); MEAN CORPUSCULAR HEMOGLOBIN 28.7 pg (25-34); MEAN PLATELET VOLUME 8.7 fL (7.4-10.4); PLATELET COUNT 439 K/uL (130-400); WHITE BLOOD COUNT 15.12 K/uL (4.8-10.8)
[2017-11-17 07:22] VITALS: BP 165/65; PULSE 76; TEMP 36.6; O2SAT 92
[2017-11-17 07:44] LABS: HEMOGLOBIN A1C 7.6 % (4.5-5.6)
[2017-11-17 07:45] LABS: CALCIUM 9.3 mg/dl (8.5-10.1); CREATININE 1.09 mg/dl (0.60-1.20); POTASSIUM 4.6 mmol/L (3.5-5.1)
[2017-11-17] MEDS: CHOLECALCIFEROL 1000 INTER.UNIT TAB PO SCH (07:48)
[2017-11-17] MEDS: CYANOCOBALAMIN 100 MCG TAB (VIT B-12) PO SCH (07:48)
[2017-11-17] MEDS: FERROUS SULFATE 325 MG TAB PO SCH ×3 (07:49→17:45)
[2017-11-17] MEDS: AMLODIPINE BESYLATE 5 MG TAB PO SCH (07:49)
[2017-11-17] MEDS: LEVETIRACETAM 500 MG TAB PO SCH ×2 (07:49→21:37)
[2017-11-17] MEDS: METOPROLOL TARTRATE 25 MG TAB PO SCH ×2 (07:49→21:38)
[2017-11-17] MEDS: CALCIUM 600MG + VIT D 400 IU TAB PO SCH (07:49)
[2017-11-17] MEDS: ASPIRIN 81 MG ECTAB PO SCH ×2 (07:49→17:45)
[2017-11-17] MEDS: INSULIN GLARGINE SOLOSTAR 100 UNITS/ML 3 ML PEN SC SCH ×2 (09:04→21:51)
[2017-11-17] MEDS: INSULIN ASPART 100 UNITS/ML 3 ML PEN SC SCH ×4 (09:04→21:50)
--- NOTE | 2017-11-17 09:21 | Orthopedic Progress Note ---
Orthopedic Progress Note Date of Service Nov 17, 2017. Subjective Reports: feeling well, Denies: chest pain, SOB, nausea / vomiting, light headedness, calf pain Additional Notes: PATIENT NOT HAVING A LOT OF PAIN. WOUND IS COPIOUSLY DRAINING THIS AM. SHE HAS SATURATED HER GOWN AND ACTIVELY DRAINING SHE AMBULATES IN THE ROOM. Objective calves soft nontender, N/V intact, hip located, capillary refill less than 2 sec., A&O x3 11CM FLUID COLLECTION NOTED POSTEROLATERAL TO INCISION. SHE HAS SURROUNDING ERYTHEMA IMMEDIATELY AT THE WOUND EDGES WITH POSSIBLE NECROTIC AREAS. NO ERYTHEMA OR CELLULITIS EXTENDING BEYOND THE WOUND. WOUND IS ACTIVELY DRAINING FOUL SMELLING, SEROUS FLUID. Date Time Temp Pulse Resp B/P (MAP) Pulse Ox O2 Delivery O2 Flow Rate FiO2 11/17/17 08:00 Room Air 11/17/17 07:22 36.6 76 20 165/65 (98) 92 Room Air 11/16/17 23:20 Room Air 11/16/17 23:08 37.0 75 16 148/68 (94) 95 Room Air 11/16/17 20:00 71 148/73 (98) 11/16/17 15:40 Room Air 11/16/17 15:00 36.8 71 18 135/67 (89) 91 Room Air 11/16/17 13:56 72 18 121/60 94 Room Air 11/16/17 12:45 68 18 108/42 94 Room Air 11/16/17 11:36 72 11/16/17 11:31 71 18 127/42 93 Room Air 11/16/17 11:12 92 Room Air 11/16/17 11:00 72 20 120/55 92 Room Air 11/16/17 10:24 71 18 127/69 92 Room Air 11/16/17 09:25 78 18 136/48 97 Room Air Laboratory Results 24 Hours: Test 11/17/17 06:25 Hematocrit 27.3 % Hemoglobin 9.0 g/dL Assessment & Plan Assessment: CHRONIC INFECTION VS HEMATOMA SP RIGHT HEMIARTHROPLASTY Plan: PATIENT IS KNOWN TO DR. HERNANDEZ. HE IS AVAILABLE TOMORROW FOR I&D RIGHT HIP WITH LIKELY POLY AND HEAD EXCHANGE. ANTICIPATE DEEP WOUND VAC PLACEMENT. MONTY YOON IS AWARE. WILL MAKE NPO FOR TOMORROW CONTINUE DAPTOMYCIN, APPRECIATE INFX DZ INPUT PAIN MANAGEMENT WOUND DRESSING CHANGES PRN, DISCUSSED WITH NURSING THIS AM.
[2017-11-17] MEDS: SODIUM CHLORIDE 0.9% 1000ML 1,000 ML IV SCH (10:46)
[2017-11-17 15:40] VITALS: BP 159/71; PULSE 76; TEMP 36.9; O2SAT 93
--- NOTE | 2017-11-17 16:12 | ORTHOPEDIC CONSULTATION ---
DATE OF CONSULTATION: 11/16/2017 HISTORY OF PRESENT ILLNESS: This is an 87-year-old female seen at the request of Dr. Waddell and Dr. Goldstein for right hip pain and hip lesion. The patient is an 87-year-old female with past medical history of right hip fracture with treatment by Dr. Luu in February 2017 with a total hip arthroplasty. She had an uneventful course; however, then had a fall later in the month of February, landing on her right hip and she fractured her right greater trochanter. She had a stable femoral and acetabular components. There was no dislocation of the hip joint. Greater trochanter fracture was treated and closed. The patient noticed some swelling in the lateral aspect of her hip and was seen by Dr. Luu who evaluated her and noted that the fluid present was stable and it would be not in her best interest to have it drained. In October 2017, patient began having worsening pain in her right hip, noticed that a small area had opened in the lateral aspect of the right hip with clear drainage and scab formation. She was seen by her PCP, was given a course of Bactrim and referred to [facility]. She was having dressing changes and then the drainage became more purulent and serosanguineous over the past 2 days prior to admission. The patient has had tenderness to touch. She has been able to ambulate with her walker. She lives alone. 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 No further action. No other constitutional symptoms. No fevers or chills. No lightheadedness, nausea, vomiting or diarrhea. PAST MEDICAL HISTORY: Depression, anxiety, cerebrovascular disease, chronic kidney disease stage III, diabetes type 2, hyperlipidemia, hypertension, osteoporosis, peripheral vascular disease, seizure disorder, vaginal/vulvar cancer. PAST SURGICAL HISTORY: Cataract surgery, right total hip replacement in February 2017, T&A, appendectomy, cholecystectomy. SOCIAL HISTORY: Denies tobacco, alcohol or drug use. She is . She lives alone and she is retired. PHYSICAL EXAMINATION: GENERAL: This is a pleasant 87-year-old female. Alert and oriented x3. Speech is clear and fluent. Affect is appropriate. VITAL SIGNS: Afebrile, vitals stable. MUSCULOSKELETAL: Examination of the right hip demonstrates local swelling of the lateral right hip with bullous region tissue measuring approximately 5 cm in diameter. There is an area of rupture of the bulla with foul smelling drainage, somewhat purulent. She has full range of motion of the right hip. She has local edema and fluid collection with some induration over the lateral and posterolateral aspect of the right hip. The hip is reduced in the socket. Distal neurosensory exam is intact. Cap refill less than 2 seconds. Dorsalis pedis and posterior pulses are palpable 2/4 bilaterally. Feet are warm. No clicks or clunks of the right hip with internal and external rotation, abduction or adduction, flexion or extension. The patient is lying supine in her hospital bed. Radiographs and CT scans reviewed, demonstrating total hip arthroplasty with a fracture of the greater trochanter with proximal migration of approximately 2 cm. There is an 11 cm long fluid collection on the lateral and posterolateral aspect of the hip, appears to be extracapsular, unclear whether there is communication with the hip joint capsule. LABORATORY DATA: Reviewed with white count elevated at 14.82, hemoglobin 10.3, hematocrit 30.3, platelets 542. IMPRESSION: 1. Right hip hematoma with possible abscess, infected total hip arthroplasty. 2. Pressure ulcer/bulla, right lateral hip. RECOMMENDATIONS: The patient will be medically optimized for surgery and will be scheduled for surgery on Sunday as my partner Dr. Luu is available on Sunday to assist in the case. We will need extensive amounts of resources including new polyethylene liner, new head, new acetabulum, possible need for cement spacers and Stimulan beads. The patient will be made n.p.o. after midnight on Sunday night for planned surgery on Sunday. Findings discussed with patient. The patient is in agreement with the care plan. Consent was on the chart. Thank you for the opportunity to consult in the care of this patient.
--- NOTE | 2017-11-17 18:02 | Progress Note ---
Internal Med Progress Note Date of Service: Nov 17, 2017. Provider Documentation: SUBJECTIVE: resting comfortably worries about the surgery says lately her right hip region is getting wet afebrile no chest pain or sob OBJECTIVE: Vital Signs-as noted below Exam: General-alert and oriented. Not in distress. old and frail ENT-Normal hearing Neck-no neck masses Lungs-cta b/l b/l no wheezing no crackles Heart-S1 and S2 heard regular rate and rhythm, no murmurs Abdomen-soft bowel sounds present no tenderness no distension Extremities- right hip in dressing no edema Neuro-alert and awake moves extremities Lab data as noted below. 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 R hip abscess: H/o R hip replacement in February 2017 following with [facility] x [address] is suspicious for abscess on iv daptomycin and Azactam ID on board Ortho plan for I and D in am patient is at acceptable risk to proceed with surgery if CXR is fine MARIELA on CKD III: -Cr elevated to 1.46 (~1.1 baseline) resolved on gentle fluids HTN: on metoprolol, amlodipine will monitor Chronic dyspnea on exertion: evaluated during previous admission in February 13 deconditioning PT/OT eval Presence of mild grade 1 diastolic dysfunction on echo EKG unremarkable will f/u cest xra pa/lateral view Vulvar malignant neoplasm: As per H and P"Diagnosed with vulvar mass by Dr. 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 to [facility] in [place] offered but patient not interested " Generalized seizure disorder: Stable on home dose keppra DM II: A1c of 7.0 in February 2017 holding home meds on basal bolus regimen will monitor Depression: on celexa HLD: on statin H/o CVA: Stable, no residual deficit on aspirin DVT Ppx: SCDs Code status: DNR per admission PCP: Triston Dispo: Admitted to med surg. pt/ot social service for d/c planning DVT PROPHYLAXIS [] DISPOSITION [] Vital Signs: Date Time Temp Pulse Resp B/P (MAP) Pulse Ox O2 Delivery O2 Flow Rate FiO2 11/17/17 15:40 36.9 76 16 159/71 (100) 93 Room Air 11/17/17 08:00 Room Air 11/17/17 07:22 36.6 76 20 165/65 (98) 92 Room Air 11/16/17 23:20 Room Air 11/16/17 23:08 37.0 75 16 148/68 (94) 95 Room Air 11/16/17 20:00 71 148/73 (98) Lab Results: Results Past 24 Hours Test 11/16/17 18:43 11/16/17 20:36 11/17/17 06:25 11/17/17 12:05 Range/Units Bedside Glucose 119 239 298 70-90 mg/dl White Blood Count 15.12 4.8-10.8 K/uL Red Blood Count 3.14 4.2-5.4 M/uL Hemoglobin 9.0 12.0-16.0 g/dL Hematocrit 27.3 37-47 % Mean Corpuscular Volume 86.9 80-100 fL Mean Corpuscular Hemoglobin 28.7 25-34 pg Mean Corpuscular Hemoglobin Concent 33.0 32-36 g/dl RDW Standard Deviation 48.0 36.4-46.3 fL RDW Coefficient of Variation 15.0 11.5-14.5 % Platelet Count 439 130-400 K/uL Mean Platelet Volume 8.7 7.4-10.4 fL Sodium Level 132 136-145 mmol/L Potassium Level 4.6 3.5-5.1 mmol/L Chloride Level 104 98-107 mmol/L Carbon Dioxide Level 22 21-32 mmol/L Anion Gap 6.0 3-11 mmol/L Blood Urea Nitrogen 26 7-18 mg/dl Creatinine 1.09 0.60-1.20 mg/dl Est Creatinine Clear Calc Drug Dose 30.7 ml/min Estimated GFR () 52.5 Estimated GFR (Non- 45.3 BUN/Creatinine Ratio 23.5 10-20 Random Glucose 128 70-99 mg/dl Estimated Average Glucose 171 mg/dl Hemoglobin A1c 7.6 4.5-5.6 % Calcium Level 9.3 8.5-10.1 mg/dl
--- NOTE | 2017-11-17 18:46 | DIAGNOSTIC IMAGING REPORT ---
CHEST 2 VIEWS ROUTINE CLINICAL HISTORY: Pleural effusion. Pneumonia. COMPARISON STUDY: Chest radiograph November 16, 2017. FINDINGS: Severe degenerative changes of the right shoulder with chronic right humeral head deformity are noted. A moderate sized hiatal hernia is noted. There are cholecystectomy clips. There is no pneumothorax. No definite pleural effusion is noted. There is no evidence for pulmonary edema. Moderate cardiomegaly is noted. There is no consolidation to suggest pneumonia. Lateral view demonstrates an old lower thoracic vertebral compression fracture. IMPRESSION: 1. No acute cardiopulmonary findings. 2. Moderate-sized subtle hernia. 3. Moderate cardiomegaly without evidence of pulmonary edema. Electronically signed by: Tayo Arias M.D. 11/17/2017 6:44 PM Dictated Date/Time: 11/17/2017 6:43 PM
[2017-11-17] MEDS ORDERED: NURSING VERBAL MED ORDER ONE (20:15)
[2017-11-17 21:33] VITALS: BP 151/63; PULSE 82; O2SAT 93
[2017-11-17] MEDS: ZOLPIDEM TARTRATE 5 MG TAB PO PRN (21:35)
[2017-11-17] MEDS: DOCUSATE SODIUM 100 MG CAP PO PRN (21:35)
[2017-11-17] MEDS: SIMVASTATIN 20 MG TAB PO SCH (21:38)
[2017-11-17 23:23] VITALS: BP 127/61; PULSE 67; TEMP 37; O2SAT 94
[2017-11-18] VITALS (14 sets, daily range): BP systolic 85–157; BP diastolic 44–70; PULSE 70–84; TEMP 35.7–36.6; O2SAT 91–96
[2017-11-18] MEDS: SODIUM CHLORIDE 0.9% 1000ML 1,000 ML IV SCH ×2 (01:42→20:49)
[2017-11-18] MEDS ORDERED: NURSING VERBAL MED ORDER ONE ×2 (02:15→21:00)
[2017-11-18] MEDS: AZTREONAM IV 1,000 MG in DEXTROSE 5% 100ML IV SCH ×2 (04:06→12:00)
[2017-11-18] MEDS: INSULIN ASPART 100 UNITS/ML 3 ML PEN SC SCH ×4 (06:00→21:23)
[2017-11-18 07:23] LABS: CREATININE 0.96 mg/dl (0.60-1.20)
[2017-11-18] MEDS ORDERED: INSULIN ASPART 100 UNITS/ML 3 ML PEN SC SCH (08:00)
[2017-11-18] MEDS: ASPIRIN 81 MG ECTAB PO SCH ×2 (08:30→18:22)
[2017-11-18] MEDS: FERROUS SULFATE 325 MG TAB PO SCH ×3 (08:30→18:22)
[2017-11-18] MEDS: CALCIUM 600MG + VIT D 400 IU TAB PO SCH ×2 (08:34→13:07)
[2017-11-18] MEDS: CHOLECALCIFEROL 1000 INTER.UNIT TAB PO SCH (08:35)
[2017-11-18] MEDS: LEVETIRACETAM 500 MG TAB PO SCH ×2 (08:35→21:01)
[2017-11-18] MEDS: CYANOCOBALAMIN 100 MCG TAB (VIT B-12) PO SCH (08:35)
[2017-11-18] MEDS: AMLODIPINE BESYLATE 5 MG TAB PO SCH (08:35)
[2017-11-18] MEDS: INSULIN GLARGINE SOLOSTAR 100 UNITS/ML 3 ML PEN SC SCH ×2 (08:36→21:21)
[2017-11-18] MEDS: METOPROLOL TARTRATE 25 MG TAB PO SCH ×2 (08:38→20:46)
[2017-11-18] MEDS ORDERED: GLYCOPYRROLATE INJ 0.2 MG/ML VIAL ONE (09:05)
[2017-11-18] MEDS ORDERED: MIDAZOLAM HCL 1 MG/ML 2ML VIAL ONE (09:05)
[2017-11-18] MEDS ORDERED: PHENYLEPHRINE HCL INJ 10 MG/ML VIAL ONE (09:05)
[2017-11-18] MEDS ORDERED: DEXAMETHASONE SOD INJ 4 MG/ML VIAL ONE (09:05)
[2017-11-18] MEDS ORDERED: PROPOFOL IV EMULSION 10 MG/ML 20 ML VIAL IV ONE (09:05)
[2017-11-18] MEDS ORDERED: NEOSTIGMINE METHYLSULFATE 5 MG/5 ML SYR ONE (09:05)
[2017-11-18] MEDS ORDERED: SUCCINYLCHOLINE CHLORIDE 20 MG/ML 10 ML VIAL IV ONE (09:05)
[2017-11-18] MEDS ORDERED: LIDOCAINE HCL 2% 2 ML VIAL (20MG/ML) ONE (09:05)
[2017-11-18] MEDS ORDERED: ONDANSETRON INJ 2 MG/ML 2 ML VIAL ONE ×2 (09:05→11:03)
[2017-11-18] MEDS ORDERED: EpHEDrine SULFATE INJ 50 MG/ML AMP ONE (09:05)
[2017-11-18] MEDS ORDERED: FENTANYL CITRATE INJ 50 MCG/1 ML 2 ML VIAL ONE (09:06)
[2017-11-18] MEDS ORDERED: KETAMINE HCL INJ 50 MG/ML 10 ML VIAL ONE (09:07)
--- NOTE | 2017-11-18 09:08 | History & Physical Bridge Note ---
H&P Re-Evaluation Bridge Note: I have examined the patient, reviewed the History & Physical and in the interval since the performance of the History & Physical I have noted the following changes of clinical significance: To OR for Incision and drainage right hip hematoma/possible abscess, possible poly exchange with head exchange, possible explantation total hip with implantation PROSTALAC cement spacer right hip.
[2017-11-18] MEDS ORDERED: BACITRACIN 50000 UNIT VIAL ONE ×2 (09:18→11:29)
[2017-11-18] MEDS ORDERED: GENTAMICIN SULFATE 40 MG/ML 2 ML VIAL ONE ×2 (09:26→11:07)
[2017-11-18] MEDS ORDERED: VANCOMYCIN HCL 1000MG/20ML VIAL ONE ×2 (09:27→11:08)
[2017-11-18] MEDS ORDERED: POVIDONE-IODINE OP SOLN 30 ML BTL ONE (09:55)
[2017-11-18] MEDS ORDERED: PHENYLEPHRINE 100MCG/ML 5ML SYR ONE (11:03)
[2017-11-18] MEDS ORDERED: EpHEDrine SULFATE 50MG/5ML SYR ONE (11:12)
[2017-11-18 12:22] LABS: HEMOGLOBIN 7.6 g/dL (12.0-16.0)
[2017-11-18] MEDS ORDERED: FUROSEMIDE 10 MG/ML 10 ML VIAL ONE (12:35)
[2017-11-18] MEDS: CITALOPRAM 20 MG TAB PO SCH (13:07)
--- NOTE | 2017-11-18 13:43 | [facility] Post Operative Brief Note ---
Immediate Operative Summary Operative Date Nov 18, 2017. Pre-Operative Diagnosis Right hip seroma with possible abscess, infected total hip.infected full thickness decubitus ulcer right buttock,displaced greater trrochanter fracture and abbuctor tear s/p fall,s/p radha for displaced femoral neck fracture. Post-Operative Diagnosis Same as preoperative diagnosiswith deep infection into joint with stable components Procedure(s) Performed Incision and debridement right hip with poly and femoral head exchange, excision greater trochanteric fracture, placement of antibiotic Stimulan beads, debridement of 8.5 X 5cm decubitus ulcer right lateral hip, debridement of skin, fascia, subcutaneous tissue and fascia. Application of wound vac right hip. Surgeon Dr. Byrd Weight Inspector Surgeon(s) Dr. Luu, Marie Barbosa PA-C Estimated Blood Loss 225 ml Findings Consistent with Post-Op Diagnosis Specimens #1.Routine culture & Sensitivity, Anaerobic culture, stat gram stain right hip fluid. #2.Routine culture & Sensitivity, Anaerobic culture, stat gram stain right hip fluid. #3.Routine culture & Sensitivity, Anaerobic culture, stat gram stain deep right hip joint. A. Explants right hip B. Right trochanteric fracture Drains 4 hemovac Anesthesia Type General Complication(s) none Disposition Disposition: Recovery Room / PACU
[2017-11-18] MEDS ORDERED: FENTANYL CITRATE INJ 50 MCG/1 ML 2 ML VIAL IV PRN (14:00)
[2017-11-18] MEDS ORDERED: NALOXONE HCL 0.4 MG/1 ML VIAL/CARP IV PRN (14:00)
[2017-11-18] MEDS ORDERED: LABETALOL HCL IV 5 MG/ML 20ML IV PRN (14:00)
[2017-11-18] MEDS ORDERED: ATROPINE SULFATE 0.1 MG/ML 5ML SYR IV PRN (14:00)
[2017-11-18] MEDS ORDERED: EpHEDrine SULFATE INJ 50 MG/ML AMP IV PRN (14:00)
[2017-11-18] MEDS ORDERED: ONDANSETRON INJ 2 MG/ML 2 ML VIAL IV PRN ×2 (14:00→14:45)
[2017-11-18 14:21] LABS: HEMATOCRIT 24.2 % (37-47)
[2017-11-18] MEDS ORDERED: ZOLPIDEM TARTRATE 5 MG TAB PO PRN (14:45)
[2017-11-18] MEDS ORDERED: ALUMINUM/MAGNESIUM/SIMETH (MAALOX MAX) 30 ML UDC PO PRN (14:45)
--- NOTE | 2017-11-18 14:58 | Anesthesiology Progress Note ---
Anesthesia Post Op Note Date & Time Nov 18, 2017 at 14:57 Vital Signs Pain Intensity: 0 Vital Signs Past 12 Hours Date Time Temp Pulse Resp B/P (MAP) Pulse Ox O2 Delivery O2 Flow Rate FiO2 11/18/17 14:40 36.4 74 14 123/57 94 Room Air 11/18/17 14:30 74 14 137/65 100 Room Air 11/18/17 14:20 74 12 143/60 100 Oxymask 10 11/18/17 14:10 73 14 139/56 100 Oxymask 10 11/18/17 14:00 36.8 72 18 96/50 100 Oxymask 10 11/18/17 08:00 Room Air 11/18/17 07:10 36.5 70 16 150/70 (96) 92 Room Air 11/18/17 06:09 36.6 79 18 157/70 (99) 91 Room Air Notes Mental Status: alert / awake / arousable, participated in evaluation Pt Amnestic to Procedure: Yes Nausea / Vomiting: adequately controlled Pain: adequately controlled Airway Patency, RR, SpO2: stable & adequate BP & HR: stable & adequate Hydration State: stable & adequate Anesthetic Complications: no major complications apparent
[2017-11-18] MEDS: AZTREONAM 2000 MG in DEXTROSE 5% 100 ML IV SCH (16:28)
[2017-11-18] MEDS: DAPTOmycin IV 300 MG in SYRINGE 0 ML IV SCH (16:29)
--- NOTE | 2017-11-18 16:36 | DIAGNOSTIC IMAGING REPORT ---
R HIP UNILATERAL 2 VIEWS CLINICAL HISTORY: 87 years-old Female presenting with post-op. TECHNIQUE: Frontal and crosstable lateral views of the right hip were obtained. COMPARISON: 03/07/2017. FINDINGS: Total right hip arthroplasty. Multiple surgical drains in place. Overlying skin krissy. There has been interval placement of radiodense material in the region of the left hip, likely medication impregnated beads. No periprosthetic fracture or malalignment is evident. Partial visualization of the pelvis demonstrates a calcified uterine fibroid. IMPRESSION: Total right hip arthroplasty with postsurgical changes of medication in dated beads and multiple surgical drains. Electronically signed by: Karl Acosta M.D. 11/18/2017 4:35 PM Dictated Date/Time: 11/18/2017 4:33 PM
--- NOTE | 2017-11-18 18:07 | Progress Note ---
Internal Med Progress Note Date of Service: Nov 18, 2017. Provider Documentation: SUBJECTIVE: resting comfortably s/p I and d of right hip today afebrile no nausea no pain asks how big was the surgery OBJECTIVE: Vital Signs-as noted below Exam: General-alert and oriented. Not in distress. old and frail ENT-Normal hearing Neck-no neck masses Lungs-cta b/l b/l no wheezing no crackles Heart-S1 and S2 heard regular rate and rhythm, no murmurs Abdomen-soft bowel sounds present no tenderness no distension Extremities- right hip s/p i and d in dressing drains intact Neuro-alert and awake moves extremities Lab data as noted below. 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 R hip abscess: H/o R hip replacement in February 2017 following with [facility] wound care x [address] is suspicious for abscess Right hip seroma with possible abscess, infected total hip.infected full thickness decubitus ulcer right buttock,displaced greater trrochanter fracture and abbuctor tear s/p fall,s/p radha for displaced femoral neck fracture as per ortho on iv daptomycin and Azactam ID on board s/p I and D with wound vac and drains placement duration of abx as per ID MARIELA on CKD III: -Cr elevated to 1.46 (~1.1 baseline) resolved on gentle fluids Anemia etiology? will check stool for hemeoccult hb 7.6 received one unit of prbc HTN: on metoprolol, amlodipine will monitor Chronic dyspnea on exertion: evaluated during previous admission in February 13 deconditioning PT/OT eval Presence of mild grade 1 diastolic dysfunction on echo EKG unremarkable f/u chest xra pa/lateral view-unremarkable Vulvar malignant neoplasm: As per H and P"Diagnosed with vulvar mass by Dr. 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 to [facility] onc in [place] offered but patient not interested " f/u with OBGYN Generalized seizure disorder: Stable on home dose keppra DM II: A1c of 7.0 in February 2017 holding home meds on basal bolus regimen will monitor Depression: on celexa HLD: on statin H/o CVA: Stable, no residual deficit on aspirin DVT Ppx: SCDs Code status: DNR per admission PCP: Tr[facility] Dispo: Admitted to med surg. pt/ot social service for d/c planning Vital Signs: Date Time Temp Pulse Resp B/P (MAP) Pulse Ox O2 Delivery O2 Flow Rate FiO2 11/18/17 17:00 36.2 75 16 94/57 (69) 95 Nasal Cannula 2.0 11/18/17 16:30 36.3 75 14 98/45 (62) 95 Nasal Cannula 2.0 11/18/17 16:00 36.2 75 14 98/61 (73) 95 Nasal Cannula 2.0 11/18/17 15:45 35.7 105/64 (78) 11/18/17 15:30 36.2 72 14 109/67 (81) 96 Nasal Cannula 2.0 11/18/17 15:00 36.3 73 16 112/63 (79) 91 Room Air 11/18/17 14:50 74 14 115/51 92 Room Air 11/18/17 14:40 36.4 74 14 123/57 94 Room Air 11/18/17 14:30 74 14 137/65 100 Room Air 11/18/17 14:20 74 12 143/60 100 Oxymask 10 11/18/17 14:10 73 14 139/56 100 Oxymask 10 11/18/17 14:00 36.8 72 18 96/50 100 Oxymask 10 11/18/17 08:00 Room Air 11/18/17 07:10 36.5 70 16 150/70 (96) 92 Room Air 11/18/17 06:09 36.6 79 18 157/70 (99) 91 Room Air 11/18/17 00:30 Room Air 11/17/17 23:23 37.0 67 16 127/61 (83) 94 Room Air 11/17/17 21:33 82 151/63 (92) 93 Room Air Lab Results: Results Past 24 Hours Test 11/17/17 20:47 11/18/17 06:07 11/18/17 06:13 11/18/17 12:15 Range/Units Bedside Glucose 201 122 70-90 mg/dl Creatinine 0.96 0.60-1.20 mg/dl Est Creatinine Clear Calc Drug Dose 34.9 ml/min Estimated GFR () 61.2 Estimated GFR (Non- 52.8 Hemoglobin 7.6 12.0-16.0 g/dL Hematocrit 24.0 37-47 % Test 11/18/17 14:13 11/18/17 14:26 Range/Units Hemoglobin 8.0 12.0-16.0 g/dL Hematocrit 24.2 37-47 % Bedside Glucose 154 70-90 mg/dl Microbiology Results 11/18/17 Gram Stain - Final, Resulted 11/18/17 Bacterial Culture, Resulted Pending 11/18/17 Gram Stain - Final, Resulted 11/18/17 Bacterial Culture, Resulted Pending 11/18/17 Gram Stain - Final, Resulted 11/18/17 Bacterial Culture, Resulted Pending
--- NOTE | 2017-11-18 18:53 | OPERATIVE REPORT ---
DATE OF OPERATION: 11/18/2017 INDICATION FOR PROCEDURE: The patient is an 87-year-old female, who had a displaced femoral neck fracture in February 2017. I did a total hip replacement on that because she had had a previous hip fracture on her opposite hip treated with a total hip replacement and did well with that procedure. Initial postop x-rays demonstrated a well-aligned uncemented total hip replacement. She went on to fall in the postoperative period, fractured elbow and fractured her hip. She had a transverse displaced trochanteric fracture of the greater trochanter, but the implant maintained to be well fixed. She was treated conservatively due to her advanced age. She developed a chronic seroma at the area of the fracture, but never showed any signs of infection. The hip replacement maintained to be stable position. She had some heterotopic bone. No signs of any loosening as of September. From that time until her admission here, at some point, she developed a decubitus ulcer over the posterior right hip. It is unclear when this actually developed as she presented to the hospital on 11/16/2017 with this large decubitus ulcer over the posterior hip posterior to the incision. Then, she started to drain and cultures grew corynebacterium. It looked like she had a full-thickness decubitus ulcer over the posterior hip area. With a CT scan demonstrating a large fluid collection, at least 10 cm extending down to the bone, this would imply that she has had communication with the joint and the joint would be infected at this time. The patient now presents for surgical management. She has multiple comorbidities including vaginal cancer, which has gone untreated, seizure disorder, peripheral vascular disease, osteoporosis, hypertension, hyperlipidemia, type 2 diabetes mellitus, chronic kidney disease stage III, status post stroke with cerebral vascular disease and anxiety disorder. PREOPERATIVE DIAGNOSES: Infected large decubitus ulcer communicating with seroma with likely infected total hip replacement, status post a postoperative displaced greater trochanter fracture secondary to a fall. POSTOPERATIVE DIAGNOSES: Same, with a full-thickness necrotic decubitus ulcer, 8.5 x 5 cm in diameter. PROCEDURES PERFORMED: Incision and drainage; irrigation and debridement of infected hip replacement including femoral head exchange; acetabular polyethylene exchange; extensive debridement of subcutaneous tissues, synovium, capsule, fascia. Including debridement of an 8.5 x 5 cm full-thickness decubitus ulcer of the right buttock area using sharp dissection and a Versajet debridement. Excision of displaced trochanteric greater trochanter fracture and abductor mechanism repair followed by placement of vancomycin and gentamicin antibiotic beads and closure over drains and application of a wound VAC to the decubitus ulcer. SURGEON: Edgar Byrd. DO. TANDEM MILL ROLLER: Ephraim HERNANDEZ MD. SECOND TANDEM MILL ROLLER: GRACE Rodrigues. ANESTHESIA: General. FLUIDS: Include 2 units of packed red blood cells. ESTIMATED BLOOD LOSS: 225 mL. SPECIMENS: Cultures x3. IMPLANTS PLACED: A 36 mm +0 C taper Biolox delta femoral head and the Trident X3 0-degree polyethylene 36 mm liner for the acetabular component. OPERATIVE PROCEDURE: The patient was taken to the operating room, anesthetized under general anesthetic. She was placed in the lateral decubitus position in the left side. Appropriate hip positioning, padding was placed and hip positioning device. An axillary roll was placed. Right hip exam demonstrates she has stable hip, but had a large decubitus ulcer, 8.5 x 5 cm which was draining clear fluid and had necrosis consistent with full-thickness necrosis to the fat. There was no erythema about her incision at all. Her leg lengths appeared to be equal. Her right hip was sterilely prepped and draped using Betadine scrub and Ioban. We also used Betadine paint prior to the Ioban. After appropriate time-out, a longitudinal incision was made through the incision. We stayed away from the decubitus ulcer initially and kept that covered with Ioban. Incision was carried down into the scarred subcutaneous tissues down to the gluteus maddy fascia and when the maddy fascia was divided, we entered a space that clearly communicated with the decubitus ulcer, which had broken through the fat full-thickness into this space. The abductors were torn as anticipated, retracted proximally with the greater trochanter fragment. Part of the anterior abductors was partially torn and the lower part of the abductor repair and vastus lateralis repair was all intact, but there was heterotopic bone there. There was clearly communication at the superior greater trochanter straight into the hip joint and we could see the metal of the implant. There was a lot of synovitis around the hip. There was a necrotic scarred fat over the gluteus maddy and between the ulcer. Cultures were obtained under the ulcer in the joint and between the layers of the fascia. After we obtained all of her cultures, the hip was copiously irrigated with pulsatile lavage with antibiotic solution with bacitracin. We used the Pulsavac. Then, the necrotic fat tissue was all debrided between the gluteus maddy and the underlying ulcer. The fascia of gluteus maddy was debrided superficially. We debrided the fascia over the vastus lateralis. Initially, debrided some synovium in the joint. I then copiously irrigated out the joint. Then, attention was taken to the decubitus ulcer. So then, we went ahead and packed the initial incision and then did a sharp dissection of all of the necrotic tissue leaving a thin layer of fat at the base, but still had some blood supply to it. There was full debridement of the dermis, epidermis, and some of the fat sharply with a scalpel and the Versajet. After further irrigation with pulsatile lavage, antibiotic solution and bacitracin, we went ahead and placed retractors and used the Versajet to debride the underlying subcutaneous tissue, the fascia of the gluteus maddy, the trochanter region, and vastus lateralis. After further irrigation with antibiotic solution with bacitracin, the plane between the fascia jason and gluteus maddy and the underlying gluteus medius and minimus was developed using Ng scissors and blunt dissection. After that was fully identified, we were able to identify the trochanter and some of the capsule tissue. At this time, we did a capsulectomy to expose the stem well. Rest of the abductor anteriorly was subperiosteally dissected off the large heterotopic bone, which was excised. We then gradually externally rotated the leg until we could see the neck well and released any scar tissue around the neck, and then we shelled out the trochanteric fragment and excised that and removed some of the capsule, so we could dislocate the hip. The hip was then dislocated and the femoral head was removed with a bone tamp and we debrided around the stem, assessed for any stem loosening. There was no stem loosening. It was very rock solid in place. I then retracted the stem posteriorly, placed sharp and blunt Hohmann retractors around the acetabulum and then did a thorough capsulectomy using sharp dissection with a scalpel, a rongeur, and electrocautery as necessary until the acetabulum was fully visualized and we did a thorough capsulectomy. All pathological synovium tissue was resected at this time. The acetabular polyethylene was removed with a curved osteotome and then we irrigated the base of the implant, assessed the implant for stability and it was completely stable. We used a curette into the holes in the cup to make sure that was all debrided deep and all tissue around the acetabulum was thoroughly debrided. We irrigated this copiously with antibiotic solution and bacitracin. Then, we used the Versajet to debride around the edge of the acetabulum, debride around the femoral component, debride all the fascial surfaces. There was a thorough debridement of the entire hip at this point in time. After further irrigation, we went ahead and changed all irrigation devices such and retractors to new retractors and new gloves. During this time, we did a Betadine soak to the hip joint. We also prior to that, just before the Betadine soak, we did a Betadine scrub of the femoral component using a Betadine scrub brush, scrubbed all the metal of the femoral trunnion and neck and the acetabulum to remove any clinical prachi. After the Betadine soak, we irrigated all this out with antibiotic solution with bacitracin. We placed 2 drains deep into the joint and brought them out laterally and then we placed the new 36 mm diameter X3 poly liner in place with an impactor. We assessed this to be stable and then exposed the femoral neck and head and onto a dry Carnes taper, placed the 36 Biolox +0 neck femoral head. We reduced this to the acetabulum, assessed the stability and were stable at 90 degrees of flexion, flexion and adduction, external rotation, flexion and internal rotation. There was a little bit of shuck due to the lack of any abductors on the hip, but the hip was stable despite that. At this point, we went ahead and irrigated further and then repaired the anterior gluteus medius with transosseous #5 FiberWire sutures using Virgilio-Fidel suture technique. The same sutures that were placed transosseously were passed through the posterior medius and we had a complete repair front to back. At this point, through the split in the abductor, we retracted this and placed antibiotic beads which were Stimulan beads made with vancomycin 1 g and gentamicin. A portion of the beads were placed into the joint intraarticularly and then the split was closed with [id number] #1 Vicryl bacteriostatic sutures. After further irrigation, the vastus lateralis was closed with the similar #1 Vicryl sutures in [id number] fashion and the medius repair over the trochanter was reinforced with the [id number] #1 Vicryl sutures. Then, the fascia jason was closed and the gluteus maddy fascia with [id number] #1 Vicryl sutures after more antibiotic beads were placed. More antibiotic beads were placed again, so we had a total of 10 mL of beads placed in all layers, and then the Vicryl sutures in [id number] fashion were used for the fascia jason and gluteus maddy fascia. Then, the subcutaneous tissues were closed with bacteriostatic Vicryl sutures and then the skin was closed with krissy and Lana Spence, the wound nurse assisted in placement of the wound VAC over the decubitus ulcer. The fat layer was closed over 2 more Hemovac drains. Sterile dressings were applied. The patient had 225 mL of blood loss and did obtain 2 units of packed red blood cells per anesthesia. The patient tolerated the procedure well at the time of this dictation. I attest to the content of the Intraoperative Record and any orders documented therein. Any exception s are noted below.
[2017-11-18] MEDS: DOCUSATE SODIUM 100 MG CAP PO SCH (21:00)
[2017-11-18] MEDS ORDERED: ASPIRIN 325 MG ECTAB PO SCH (21:00)
[2017-11-18] MEDS: POLYETHYLENE (MIRALAX) 17 GM PACK PO PRN (21:01)
[2017-11-18] MEDS: SIMVASTATIN 20 MG TAB PO SCH (21:01)
[2017-11-19] VITALS (21 sets, daily range): BP systolic 104–147; BP diastolic 52–72; PULSE 67–88; TEMP 36.4–36.9; O2SAT 88–99
[2017-11-19] MEDS: AZTREONAM 2000 MG in DEXTROSE 5% 100 ML IV SCH ×4 (00:33→23:43)
[2017-11-19 06:27] LABS: HEMATOCRIT 22.7 % (37-47); HEMOGLOBIN 7.5 g/dL (12.0-16.0); MEAN CELL VOLUME 88.7 fL (80-100); MEAN CORPUSCULAR HEMOGLOBIN 29.3 pg (25-34); MEAN PLATELET VOLUME 8.5 fL (7.4-10.4); PLATELET COUNT 389 K/uL (130-400); RED CELL DISTRIBUTION WIDTH CV 15.1 % (11.5-14.5); WHITE BLOOD COUNT 22.81 K/uL (4.8-10.8)
[2017-11-19 07:05] LABS: CALCIUM 9.9 mg/dl (8.5-10.1); CREATININE 1.07 mg/dl (0.60-1.20); POTASSIUM 4.9 mmol/L (3.5-5.1)
[2017-11-19] MEDS ORDERED: ACETAMINOPHEN 325 MG TAB PO ONE (07:30)
[2017-11-19] MEDS ORDERED: FUROSEMIDE INJ 20 MG in SYRINGE 0 ML IV ONE (07:30)
--- NOTE | 2017-11-19 08:56 | Clinical Documentation Query ---
CLINICAL DOCUMENTATION QUERY This question is to clarify staging of decubitus and to make sure coding does not code this to a complication of care associated with original right THR. In your clinical opinion is this patient being managed for: ( x) Stage 4 decubitus ulcer to right hip causing the infection to right THR ( ) Not Agree ( ) Other explanation of clinical findings (Please Explain) ( ) Unable to determine (Please Define) ( ) Need to Discuss The medical record reflects the following clinical findings, treatment, and risk factors. Clinical Indicators: Decubitus to right hip. Treatment: I&D with poly and femoral head exchange Risk Factors: Age Please clarify and document your clinical opinion in the progress notes and discharge summary. Terms such as "probable", "suspected", "likely", "questionable", "possible", or "still to be ruled out" are acceptable. IF IN AGREEMENT, YOU MUST DOCUMENT ABOVE DIAGNOSTIC STATEMENT IN DAILY PROGRESS NOTES AND DISCHARGE SUMMARY. This document is not part of the patient's record. Thank You, Jonathan Malcolm RN [phone]
--- NOTE | 2017-11-19 08:58 | Clinical Documentation Query ---
CLINICAL DOCUMENTATION QUERY This question is to clarify staging of decubitus and to make sure coding does not code this to a complication of care associated with original right THR. In your clinical opinion is this patient being managed for: ( x ) Stage 4 decubitus ulcer to right hip causing the infection to right THR ( ) Not Agree ( ) Other explanation of clinical findings (Please Explain) ( ) Unable to determine (Please Define) ( ) Need to Discuss The medical record reflects the following clinical findings, treatment, and risk factors. Clinical Indicators: Decubitus to right hip. Treatment: I&D with poly and femoral head exchange Risk Factors: Age Please clarify and document your clinical opinion in the progress notes and discharge summary. Terms such as "probable", "suspected", "likely", "questionable", "possible", or "still to be ruled out" are acceptable. IF IN AGREEMENT, YOU MUST DOCUMENT ABOVE DIAGNOSTIC STATEMENT IN DAILY PROGRESS NOTES AND DISCHARGE SUMMARY. This document is not part of the patient's record. Thank You, Jonathan Malcolm RN [phone]
[2017-11-19] MEDS: INSULIN GLARGINE SOLOSTAR 100 UNITS/ML 3 ML PEN SC SCH ×2 (09:39→21:16)
[2017-11-19] MEDS: INSULIN ASPART 100 UNITS/ML 3 ML PEN SC SCH ×4 (09:40→21:15)
[2017-11-19] MEDS: LEVETIRACETAM 500 MG TAB PO SCH ×2 (09:43→21:06)
[2017-11-19] MEDS: METOPROLOL TARTRATE 25 MG TAB PO SCH ×2 (09:45→21:04)
[2017-11-19] MEDS: FERROUS SULFATE 325 MG TAB PO SCH ×3 (09:46→18:01)
[2017-11-19] MEDS: ASPIRIN 81 MG ECTAB PO SCH ×2 (09:47→19:45)
[2017-11-19] MEDS: CALCIUM 600MG + VIT D 400 IU TAB PO SCH ×2 (09:47→13:17)
[2017-11-19] MEDS: AMLODIPINE BESYLATE 5 MG TAB PO SCH (09:47)
[2017-11-19] MEDS: CYANOCOBALAMIN 100 MCG TAB (VIT B-12) PO SCH (09:47)
[2017-11-19] MEDS: CHOLECALCIFEROL 1000 INTER.UNIT TAB PO SCH (09:48)
[2017-11-19] MEDS: MULTIVITAMIN TAB PO SCH (09:48)
[2017-11-19] MEDS: DOCUSATE SODIUM 100 MG CAP PO SCH ×2 (09:48→21:05)
--- NOTE | 2017-11-19 10:48 | Progress Note ---
Subjective Date of Service: Nov 19, 2017. Subjective Pt evaluation today including: conversation w/ patient, physical exam, chart review, lab review pt receiving blood transfusion on my exam, s/p debridement hip, buttock wound, vac placement. OR cultures pending, blood cultures negative. tolerating abx. remains on emperic abx. afebrile. Denies pain in wound, no cp, cough, sob, all remaining ros reviewed and are negative. Problem List Medical Problems: (1) Abscess of right hip Status: Acute (2) Altered mental status Status: Acute (3) Bradycardia Status: Acute (4) Cellulitis of right hip Status: Acute (5) Expressive aphasia Status: Acute (6) Fall Status: Acute (7) Possible urinary tract infection Status: Acute (8) Receptive aphasia Status: Acute (9) Skin tear of right hand without complication Status: Acute Objective Vital Signs Date Time Temp Pulse Resp B/P (MAP) Pulse Ox O2 Delivery O2 Flow Rate FiO2 11/19/17 10:04 96 Room Air 11/19/17 09:30 36.6 84 18 109/61 11/19/17 09:00 36.7 87 18 104/52 11/19/17 08:45 36.7 87 18 110/64 11/19/17 08:20 36.8 88 18 120/66 11/19/17 08:13 36.9 88 17 132/58 (82) 96 Room Air 11/19/17 03:10 36.5 87 16 113/69 (84) 99 Nasal Cannula 2.0 11/19/17 00:15 91 Nasal Cannula 2.0 11/18/17 23:37 36.3 84 16 106/54 (71) 96 Room Air 11/18/17 20:17 36.4 80 16 108/57 (74) 95 Room Air 11/18/17 19:28 115/61 (79) 11/18/17 19:13 103/57 (72) 11/18/17 19:08 36.2 80 14 85/44 (58) 93 Room Air 11/18/17 17:00 36.2 75 16 94/57 (69) 95 Nasal Cannula 2.0 11/18/17 16:30 36.3 75 14 98/45 (62) 95 Nasal Cannula 2.0 11/18/17 16:00 36.2 75 14 98/61 (73) 95 Nasal Cannula 2.0 11/18/17 15:45 35.7 105/64 (78) 11/18/17 15:30 36.2 72 14 109/67 (81) 96 Nasal Cannula 2.0 11/18/17 15:15 91 Room Air 11/18/17 15:15 Nasal Cannula 2.0 11/18/17 15:00 36.3 73 16 112/63 (79) 91 Room Air 11/18/17 14:50 74 14 115/51 92 Room Air 11/18/17 14:40 36.4 74 14 123/57 94 Room Air 11/18/17 14:30 74 14 137/65 100 Room Air 11/18/17 14:20 74 12 143/60 100 Oxymask 10 11/18/17 14:10 73 14 139/56 100 Oxymask 10 11/18/17 14:00 36.8 72 18 96/50 100 Oxymask 10 Physical Exam General Appearance: WD/WN, no apparent distress Eyes: normal inspection, EOMI Neck: supple Respiratory/Chest: lungs clear, normal breath sounds, no respiratory distress Cardiovascular: regular rate, rhythm, no edema Abdomen: soft Extremities: non-tender, no pedal edema Neurologic/Psychiatric: alert, oriented x 3 Skin: normal color Comments: right hip vac intact Laboratory Results Item Value Date Time Blood Culture - Preliminary Resulted 11/16/17 0900 Blood NO GROWTH TO DATE. Blood Culture - Preliminary Resulted 11/16/17 0910 Blood NO GROWTH TO DATE. Gram Stain - Final Resulted 11/18/17 1055 Drainage-Deep Hip , Right Gram Stain - Final Resulted 11/18/17 1100 Drainage-Deep Hip , Right Gram Stain - Final Resulted 11/18/17 1110 Joint Fluid/Space (Synovial) Hip , Right Last 24 Hours Test 11/18/17 12:15 11/18/17 14:13 11/18/17 14:26 11/18/17 17:17 Hemoglobin 7.6 g/dL 8.0 g/dL Hematocrit 24.0 % 24.2 % Bedside Glucose 154 mg/dl 192 mg/dl Test 11/18/17 20:37 11/19/17 05:47 11/19/17 07:49 Bedside Glucose 225 mg/dl 184 mg/dl White Blood Count 22.81 K/uL Red Blood Count 2.56 M/uL Hemoglobin 7.5 g/dL Hematocrit 22.7 % Mean Corpuscular Volume 88.7 fL Mean Corpuscular Hemoglobin 29.3 pg Mean Corpuscular Hemoglobin Concent 33.0 g/dl RDW Standard Deviation 49.0 fL RDW Coefficient of Variation 15.1 % Platelet Count 389 K/uL Mean Platelet Volume 8.5 fL Sodium Level 134 mmol/L Potassium Level 4.9 mmol/L Chloride Level 105 mmol/L Carbon Dioxide Level 21 mmol/L Anion Gap 8.0 mmol/L Blood Urea Nitrogen 23 mg/dl Creatinine 1.07 mg/dl Est Creatinine Clear Calc Drug Dose 31.3 ml/min Estimated GFR () 53.7 Estimated GFR (Non- 46.3 BUN/Creatinine Ratio 21.1 Random Glucose 171 mg/dl Calcium Level 9.9 mg/dl Assessment and Plan (1) Cellulitis of right hip Assessment & Plan: continue abx, follow OR cultures. (2) Abscess of right hip
--- NOTE | 2017-11-19 12:49 | Orthopedic Progress Note ---
Orthopedic Progress Note Date of Service Nov 19, 2017. Subjective Post OP Day: 1 Reports: feeling well, Denies: chest pain, SOB, nausea / vomiting, light headedness, calf pain Objective calves soft nontender, N/V intact, capillary refill less than 2 sec., dressing C /D/I (wound vac), A&O x3, toes mobile, hemovac drainage (#1 85/25; #2 80/75) Date Time Temp Pulse Resp B/P (MAP) Pulse Ox O2 Delivery O2 Flow Rate FiO2 11/19/17 12:00 36.8 70 16 127/72 92 11/19/17 11:45 36.8 67 18 123/68 92 11/19/17 11:28 36.4 68 18 138/69 92 0.0 11/19/17 10:30 36.6 75 18 123/68 94 11/19/17 10:04 96 Room Air 11/19/17 09:30 36.6 84 18 109/61 11/19/17 09:00 36.7 87 18 104/52 11/19/17 08:45 36.7 87 18 110/64 11/19/17 08:20 36.8 88 18 120/66 11/19/17 08:13 36.9 88 17 132/58 (82) 96 Room Air 11/19/17 08:10 96 Room Air 11/19/17 03:10 36.5 87 16 113/69 (84) 99 Nasal Cannula 2.0 11/19/17 00:15 91 Nasal Cannula 2.0 11/18/17 23:37 36.3 84 16 106/54 (71) 96 Room Air 11/18/17 20:17 36.4 80 16 108/57 (74) 95 Room Air 11/18/17 19:28 115/61 (79) 11/18/17 19:13 103/57 (72) 11/18/17 19:08 36.2 80 14 85/44 (58) 93 Room Air 11/18/17 17:00 36.2 75 16 94/57 (69) 95 Nasal Cannula 2.0 11/18/17 16:30 36.3 75 14 98/45 (62) 95 Nasal Cannula 2.0 11/18/17 16:00 36.2 75 14 98/61 (73) 95 Nasal Cannula 2.0 11/18/17 15:45 35.7 105/64 (78) 11/18/17 15:30 36.2 72 14 109/67 (81) 96 Nasal Cannula 2.0 11/18/17 15:15 91 Room Air 11/18/17 15:15 Nasal Cannula 2.0 11/18/17 15:00 36.3 73 16 112/63 (79) 91 Room Air 11/18/17 14:50 74 14 115/51 92 Room Air 11/18/17 14:40 36.4 74 14 123/57 94 Room Air 11/18/17 14:30 74 14 137/65 100 Room Air 11/18/17 14:20 74 12 143/60 100 Oxymask 10 11/18/17 14:10 73 14 139/56 100 Oxymask 10 11/18/17 14:00 36.8 72 18 96/50 100 Oxymask 10 Laboratory Results 24 Hours: Test 11/18/17 14:13 11/19/17 05:47 Hematocrit 24.2 % 22.7 % Hemoglobin 8.0 g/dL 7.5 g/dL Assessment & Plan Assessment: POD#1 SP I&D RIGHT HIP, DEBRIDEMENT OF ULCER AND APPLICATION OF WOUND VAC. Plan: DEEP CULTURES PENDING. SUPERFICIAL WOUND GROWING CORYNEBACTERIM. CONTINUE DAPTOMYCIN, APPRECIATE INFX DZ INPUT PAIN MANAGEMENT WOUND VAC CHANGES PER WOUND NURSE MEDICAL MANAGEMENT -ANEMIA- HAD 2 UNITS, CONTINUE TO MONITOR. DEFER TO MEDICAL SERVICE DC PLANNING- PATIENT REQUESTING REFERRAL TO [facility]. PT/OT EVALS PENDING. WILL NEED PICC LINE PLACED, CONSENT TO BE OBTAINED TODAY.
[2017-11-19] MEDS: ACETAMINOPHEN 325 MG TAB PO PRN ×2 (14:40→14:41)
[2017-11-19] MEDS: CITALOPRAM 20 MG TAB PO SCH (14:40)
[2017-11-19] MEDS: SODIUM CHLORIDE 0.9% 1000ML 1,000 ML IV SCH (16:54)
--- NOTE | 2017-11-19 18:41 | Progress Note ---
Internal Med Progress Note Date of Service: Nov 19, 2017. Provider Documentation: SUBJECTIVE: resting comfortably s/p I and d of right hip yesterady has some soreness at surgery site afebrile could not place picc line today eating ok OBJECTIVE: Vital Signs-as noted below Exam: General-alert and oriented. Not in distress. old and frail ENT-Normal hearing Neck-no neck masses Lungs-cta b/l b/l no wheezing no crackles Heart-S1 and S2 heard regular rate and rhythm, no murmurs Abdomen-soft bowel sounds present no tenderness no distension Extremities- right hip s/p i and d in dressing drains intact Neuro-alert and awake moves extremities Lab data as noted below. 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 R hip abscess: H/o R hip replacement in February 2017 following with [facility] care x [address] is suspicious for abscess Right hip seroma with possible abscess, infected total hip.infected full thickness decubitus ulcer right buttock,displaced greater trrochanter fracture and abductor tear s/p fall,s/p radha for displaced femoral neck fracture as per ortho on iv daptomycin and Azactam ID on board s/p I and D with wound vac and drains placement await cultures plan for picc line duration of abx as per ID MARIELA on CKD III: -Cr elevated to 1.46 (~1.1 baseline) resolved on gentle fluids Anemia etiology? of chronic disease vs post operative will check stool for hemeoccult hb 7.6 received one unit of prbc 11/18/17 7.5 today s/p two more units of prbc f/u labs HTN: on metoprolol, amlodipine will monitor Chronic dyspnea on exertion: evaluated during previous admission in February 13 deconditioning PT/OT eval Presence of mild grade 1 diastolic dysfunction on echo EKG unremarkable f/u chest xra pa/lateral view-unremarkable Vulvar malignant neoplasm: As per H and P"Diagnosed with vulvar mass by Dr. 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 to strategic marketing specialist onc in [place] offered but patient not interested " f/u with OBGYN Generalized seizure disorder: Stable on home dose keppra DM II: A1c of 7.0 in February 2017 holding home meds on basal bolus regimen 171/184/210/161 will monitor Depression: on celexa HLD: on statin H/o CVA: Stable, no residual deficit on aspirin DVT Ppx: SCDs Code status: DNR per admission PCP: Triston Dispo: Admitted to med surg. pt/ot plan for rehab social service for d/c planning Vital Signs: Date Time Temp Pulse Resp B/P (MAP) Pulse Ox O2 Delivery O2 Flow Rate FiO2 11/19/17 16:31 36.7 75 18 117/57 (77) 95 Room Air 11/19/17 13:30 36.8 69 18 120/67 93 11/19/17 12:30 36.7 76 18 126/70 93 11/19/17 12:30 36.7 76 18 126/70 93 11/19/17 12:00 36.8 70 16 127/72 92 11/19/17 11:45 36.8 67 18 123/68 92 11/19/17 11:28 36.4 68 18 138/69 92 0.0 11/19/17 10:30 36.6 75 18 123/68 94 11/19/17 10:04 96 Room Air 11/19/17 09:30 36.6 84 18 109/61 11/19/17 09:00 36.7 87 18 104/52 11/19/17 08:45 36.7 87 18 110/64 11/19/17 08:20 36.8 88 18 120/66 11/19/17 08:13 36.9 88 17 132/58 (82) 96 Room Air 11/19/17 08:10 96 Room Air 11/19/17 03:10 36.5 87 16 113/69 (84) 99 Nasal Cannula 2.0 11/19/17 00:15 91 Nasal Cannula 2.0 11/18/17 23:37 36.3 84 16 106/54 (71) 96 Room Air 11/18/17 20:17 36.4 80 16 108/57 (74) 95 Room Air 11/18/17 19:28 115/61 (79) 11/18/17 19:13 103/57 (72) 11/18/17 19:08 36.2 80 14 85/44 (58) 93 Room Air Lab Results: Results Past 24 Hours Test 11/18/17 20:37 11/19/17 05:47 11/19/17 07:49 11/19/17 12:10 Range/Units Bedside Glucose 225 184 210 70-90 mg/dl White Blood Count 22.81 4.8-10.8 K/uL Red Blood Count 2.56 4.2-5.4 M/uL Hemoglobin 7.5 12.0-16.0 g/dL Hematocrit 22.7 37-47 % Mean Corpuscular Volume 88.7 80-100 fL Mean Corpuscular Hemoglobin 29.3 25-34 pg Mean Corpuscular Hemoglobin Concent 33.0 32-36 g/dl RDW Standard Deviation 49.0 36.4-46.3 fL RDW Coefficient of Variation 15.1 11.5-14.5 % Platelet Count 389 130-400 K/uL Mean Platelet Volume 8.5 7.4-10.4 fL Sodium Level 134 136-145 mmol/L Potassium Level 4.9 3.5-5.1 mmol/L Chloride Level 105 98-107 mmol/L Carbon Dioxide Level 21 21-32 mmol/L Anion Gap 8.0 3-11 mmol/L Blood Urea Nitrogen 23 7-18 mg/dl Creatinine 1.07 0.60-1.20 mg/dl Est Creatinine Clear Calc Drug Dose 31.3 ml/min Estimated GFR () 53.7 Estimated GFR (Non- 46.3 BUN/Creatinine Ratio 21.1 10-20 Random Glucose 171 70-99 mg/dl Calcium Level 9.9 8.5-10.1 mg/dl Test 11/19/17 17:00 Range/Units Bedside Glucose 161 70-90 mg/dl
[2017-11-19] MEDS: ZOLPIDEM TARTRATE 5 MG TAB PO PRN (21:04)
[2017-11-19] MEDS: POLYETHYLENE (MIRALAX) 17 GM PACK PO PRN (21:04)
[2017-11-19] MEDS: SIMVASTATIN 20 MG TAB PO SCH (21:05)
[2017-11-20] MEDS: MAGNESIUM HYDROXIDE SUSP 30 ML UDC PO PRN (06:07)
[2017-11-20 07:21] LABS: HEMATOCRIT 30.7 % (37-47); HEMOGLOBIN 10.5 g/dL (12.0-16.0); MEAN CELL VOLUME 87.2 fL (80-100); MEAN CORPUSCULAR HEMOGLOBIN 29.8 pg (25-34); MEAN CORPUSCULAR HGB CONC 34.2 g/dl (32-36); MEAN PLATELET VOLUME 8.2 fL (7.4-10.4); PLATELET COUNT 334 K/uL (130-400); RED CELL DISTRIBUTION WIDTH CV 14.8 % (11.5-14.5); WHITE BLOOD COUNT 21.86 K/uL (4.8-10.8)
[2017-11-20] MEDS: AZTREONAM 2000 MG in DEXTROSE 5% 100 ML IV SCH (07:34)
[2017-11-20 07:36] VITALS: BP 150/66; PULSE 76; TEMP 36.7; O2SAT 91
[2017-11-20 07:52] LABS: CREATININE 0.94 mg/dl (0.60-1.20); POTASSIUM 4.2 mmol/L (3.5-5.1)
[2017-11-20] MEDS: CALCIUM 600MG + VIT D 400 IU TAB PO SCH ×2 (08:34→13:06)
[2017-11-20] MEDS: DOCUSATE SODIUM 100 MG CAP PO SCH ×2 (08:34→21:03)
[2017-11-20] MEDS: FERROUS SULFATE 325 MG TAB PO SCH ×3 (08:35→18:04)
[2017-11-20] MEDS: METOPROLOL TARTRATE 25 MG TAB PO SCH ×2 (08:35→21:03)
[2017-11-20] MEDS: MULTIVITAMIN TAB PO SCH (08:35)
[2017-11-20] MEDS: AMLODIPINE BESYLATE 5 MG TAB PO SCH (08:36)
[2017-11-20] MEDS: CHOLECALCIFEROL 1000 INTER.UNIT TAB PO SCH (08:36)
[2017-11-20] MEDS: ASPIRIN 81 MG ECTAB PO SCH ×2 (08:36→18:04)
[2017-11-20] MEDS: CYANOCOBALAMIN 100 MCG TAB (VIT B-12) PO SCH (08:51)
[2017-11-20] MEDS: LEVETIRACETAM 500 MG TAB PO SCH ×2 (08:51→21:01)
[2017-11-20] MEDS: INSULIN ASPART 100 UNITS/ML 3 ML PEN SC SCH ×4 (09:02→21:14)
[2017-11-20] MEDS: INSULIN GLARGINE SOLOSTAR 100 UNITS/ML 3 ML PEN SC SCH ×2 (09:02→21:14)
--- NOTE | 2017-11-20 10:29 | Orthopedic Progress Note ---
Orthopedic Progress Note Date of Service Nov 20, 2017. Subjective Post OP Day: 2 Reports: feeling well Additional Notes: Pt sitting up in chair at bedside. States that her hip feels sore but otherwise , she is doing well. Objective calves soft nontender, N/V intact, hip located, dressing C/D/I, toes mobile Date Time Temp Pulse Resp B/P (MAP) Pulse Ox O2 Delivery O2 Flow Rate FiO2 11/20/17 08:00 Nasal Cannula 2.0 11/20/17 07:36 36.7 76 16 150/66 (94) 91 2.0 11/19/17 23:47 Nasal Cannula 2.0 11/19/17 23:20 92 Nasal Cannula 2.0 11/19/17 23:15 36.9 67 18 113/66 (82) 88 Room Air 11/19/17 21:20 95 Nasal Cannula 2.0 11/19/17 21:02 92 Nasal Cannula 2.0 11/19/17 21:00 80 147/66 (93) 90 Room Air 11/19/17 16:31 36.7 75 18 117/57 (77) 95 Room Air 11/19/17 16:30 Room Air 0.0 11/19/17 13:30 36.8 69 18 120/67 93 11/19/17 12:30 36.7 76 18 126/70 93 11/19/17 12:30 36.7 76 18 126/70 93 11/19/17 12:00 36.8 70 16 127/72 92 11/19/17 11:45 36.8 67 18 123/68 92 11/19/17 11:28 36.4 68 18 138/69 92 0.0 11/19/17 10:30 36.6 75 18 123/68 94 Laboratory Results 24 Hours: Test 11/20/17 07:01 Hematocrit 30.7 % Hemoglobin 10.5 g/dL Assessment & Plan Assessment: POD#2 SP I&D RIGHT HIP, DEBRIDEMENT OF ULCER AND APPLICATION OF WOUND VAC. Plan: DEEP CULTURES PENDING. SUPERFICIAL WOUND GROWING CORYNEBACTERIM. CONTINUE DAPTOMYCIN, APPRECIATE INFX DZ INPUT PAIN MANAGEMENT WOUND VAC CHANGES PER WOUND NURSE MEDICAL MANAGEMENT -ANEMIA- HAS HAD 3 UNITS PRBC'S; HGB 10.5 TODAY DC PLANNING- PATIENT REQUESTING REFERRAL TO [facility]. PT/OT EVALS PENDING. PICC LINE ATTEMPTED YESTERDAY; RETRY TODAY IN THE OTHER ARM.
[2017-11-20] MEDS: SODIUM CHLORIDE 0.9% 1000ML 1,000 ML IV SCH (13:06)
[2017-11-20] MEDS: CITALOPRAM 20 MG TAB PO SCH (13:07)
--- NOTE | 2017-11-20 14:19 | Progress Note ---
Subjective Date of Service: Nov 20, 2017. Subjective pt getting picc line at time of my exam. Now OR cultures with gpc 3/3. blood cultures negative. tolerating abx. wbc remains elevated. s/p transfusion. afebrile. tolerating abx. Problem List Medical Problems: (1) Abscess of right hip Status: Acute (2) Altered mental status Status: Acute (3) Bradycardia Status: Acute (4) Cellulitis of right hip Status: Acute (5) Expressive aphasia Status: Acute (6) Fall Status: Acute (7) Possible urinary tract infection Status: Acute (8) Receptive aphasia Status: Acute (9) Skin tear of right hand without complication Status: Acute Objective Vital Signs Date Time Temp Pulse Resp B/P (MAP) Pulse Ox O2 Delivery O2 Flow Rate FiO2 11/20/17 08:00 Nasal Cannula 2.0 11/20/17 07:36 36.7 76 16 150/66 (94) 91 2.0 11/19/17 23:47 Nasal Cannula 2.0 11/19/17 23:20 92 Nasal Cannula 2.0 11/19/17 23:15 36.9 67 18 113/66 (82) 88 Room Air 11/19/17 21:20 95 Nasal Cannula 2.0 11/19/17 21:02 92 Nasal Cannula 2.0 11/19/17 21:00 80 147/66 (93) 90 Room Air 11/19/17 16:31 36.7 75 18 117/57 (77) 95 Room Air 11/19/17 16:30 Room Air 0.0 Laboratory Results Item Value Date Time Gram Stain - Final Resulted 11/18/17 1110 Joint Fluid/Space (Synovial) Hip , Right Gram Stain - Final Resulted 11/18/17 1100 Drainage-Deep Hip , Right Gram Stain - Final Resulted 11/18/17 1055 Drainage-Deep Hip , Right Blood Culture - Preliminary Resulted 11/16/17 0910 Blood NO GROWTH TO DATE. Blood Culture - Preliminary Resulted 11/16/17 0900 Blood NO GROWTH TO DATE. Last 24 Hours Test 11/19/17 17:00 11/19/17 20:25 11/20/17 07:01 11/20/17 08:00 Bedside Glucose 161 mg/dl 176 mg/dl 116 mg/dl White Blood Count 21.86 K/uL Red Blood Count 3.52 M/uL Hemoglobin 10.5 g/dL Hematocrit 30.7 % Mean Corpuscular Volume 87.2 fL Mean Corpuscular Hemoglobin 29.8 pg Mean Corpuscular Hemoglobin Concent 34.2 g/dl RDW Standard Deviation 46.0 fL RDW Coefficient of Variation 14.8 % Platelet Count 334 K/uL Mean Platelet Volume 8.2 fL Sodium Level 134 mmol/L Potassium Level 4.2 mmol/L Chloride Level 105 mmol/L Carbon Dioxide Level 23 mmol/L Anion Gap 6.0 mmol/L Blood Urea Nitrogen 21 mg/dl Creatinine 0.94 mg/dl Est Creatinine Clear Calc Drug Dose 35.7 ml/min Estimated GFR () 62.8 Estimated GFR (Non- 54.2 BUN/Creatinine Ratio 22.0 Random Glucose 100 mg/dl Calcium Level 11.0 mg/dl Test 11/20/17 12:02 Bedside Glucose 173 mg/dl Assessment and Plan (1) Cellulitis of right hip Assessment & Plan: now with all cultures growing gpc will continue on dapto. will stop aztreonnam. will require prolonged course of abx. blood cultures negative. will follow final results. (2) Abscess of right hip
[2017-11-20 15:21] VITALS: BP 152/68; PULSE 70; TEMP 36.6; O2SAT 93
[2017-11-20] MEDS: DAPTOmycin IV 300 MG in SYRINGE 0 ML IV SCH (16:44)
--- NOTE | 2017-11-20 16:52 | Progress Note ---
Medicine Progress Note Date & Time of Visit: Nov 20, 2017 at 16:41. Subjective seen resting in bed, comfortable states right hip still feels sore managed to ambulate to the bathroom - no dizziness no other symptoms Objective Last 8 Hrs Date Time Temp Pulse Resp B/P (MAP) Pulse Ox O2 Delivery O2 Flow Rate FiO2 11/20/17 15:21 36.6 70 18 152/68 (96) 93 Room Air Physical Exam: General- oriented x3, not in distress, speaks in sentences with no effort Head- atraumatic Eyes- PERRL, EOMI, anicteric ENT- oropharynx clear Neck- supple, no JVD, no adenopathy, no thyromegaly; carotids +2/2 Lungs- clear breath sounds bilaterally, no rales/wheezes Heart- regular rhythm; no murmur, no gallop, no rub appreciated Abdomen- normal bowel sounds, soft, nontender, no masses or hepatosplenomegaly Extremities- no pretibial edema, no calf tenderness; peripheral pulses intact Right Hip: dressing in place, no bleeding, discharge Neuro- alert, oriented x 3; no gross focal deficits Skin- warm & dry Laboratory Results: Last 24 Hours Test 11/19/17 17:00 11/19/17 20:25 11/20/17 07:01 11/20/17 08:00 Bedside Glucose 161 mg/dl 176 mg/dl 116 mg/dl White Blood Count 21.86 K/uL Red Blood Count 3.52 M/uL Hemoglobin 10.5 g/dL Hematocrit 30.7 % Mean Corpuscular Volume 87.2 fL Mean Corpuscular Hemoglobin 29.8 pg Mean Corpuscular Hemoglobin Concent 34.2 g/dl RDW Standard Deviation 46.0 fL RDW Coefficient of Variation 14.8 % Platelet Count 334 K/uL Mean Platelet Volume 8.2 fL Sodium Level 134 mmol/L Potassium Level 4.2 mmol/L Chloride Level 105 mmol/L Carbon Dioxide Level 23 mmol/L Anion Gap 6.0 mmol/L Blood Urea Nitrogen 21 mg/dl Creatinine 0.94 mg/dl Est Creatinine Clear Calc Drug Dose 35.7 ml/min Estimated GFR () 62.8 Estimated GFR (Non- 54.2 BUN/Creatinine Ratio 22.0 Random Glucose 100 mg/dl Calcium Level 11.0 mg/dl Test 11/20/17 12:02 Bedside Glucose 173 mg/dl Assessment & Plan This is an 87yo F with a PMH of R hip fracture s/p hip replacement in February 2017, DM II, HTN, CKD III, HLD, vulvar cancer, h/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 R hip abscess: H/o R hip replacement in February 2017 following with [facility] wound care x [address] is suspicious for abscess Right hip seroma with possible abscess, infected total hip.infected full thickness decubitus ulcer right buttock,displaced greater trrochanter fracture and abductor tear s/p fall,s/p radha for displaced femoral neck fracture as per ortho 2.4.18: s/p I and D with wound vac and drains placement I&D Cultures (+) Gram positive cocci continue Daptomycin x few weeks, via PICC line ID input appreciated MARIELA on CKD III: -Cr elevated to 1.46 (~1.1 baseline) resolved given IV fluids Anemia etiology? of chronic disease vs post operative hb 7.6 received 3 units PRBC Hg improved to 10 - FOBT pending will send anemia panel HTN: on metoprolol, amlodipine will monitor Chronic dyspnea on exertion: evaluated during previous admission in February 13 deconditioning PT/OT eval Presence of mild grade 1 diastolic dysfunction on echo EKG unremarkable f/u chest xra pa/lateral view-unremarkable Vulvar malignant neoplasm: As per H and P"Diagnosed with vulvar mass by Dr. 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 to urogynecology physician onc in [place] offered but patient not interested " f/u with OBGYN Generalized seizure disorder: Stable on home dose keppra DM II: A1c of 7.0 in February 2017 holding home meds on basal bolus regimen Depression: on celexa HLD: on statin H/o CVA: Stable, no residual deficit on aspirin DVT Ppx: SCDs Heparin when ok with Ortho Code status: DNR per admission PCP: Triston Dispo: Admitted to med surg. pt/ot plan for rehab social service for d/c planning Current Inpatient Medications: Current Inpatient Medications Medications (Trade) Dose Ordered Sig/Zaina Route Start Time Stop Time Status Last Admin Dose Admin Ondansetron HCl (Zofran Inj) 4 mg Q6H PRN IV 11/16/17 11:45 12/16/17 11:44 Sodium Chloride 1,000 ml @ 50 mls/hr Q20H IV 11/16/17 15:00 12/16/17 14:59 11/20/17 13:06 50 MLS/HR Insulin Glargine (Lantus Solostar Pen) 6 units Q12 SC 11/16/17 21:00 12/16/17 20:59 11/20/17 09:02 6 UNITS Glucose (Glucose 40% Gel) 15-30 GRAMS 15 GRAMS... UD PRN PO 11/16/17 12:30 12/16/17 12:29 Glucose (Glucose Chew Tab) 4-8 Tablets 4 Tabl... UD PRN PO 11/16/17 12:30 12/16/17 12:29 Dextrose (Dextrose 50% 50ML Syringe) 25-50ML OF 50% DW IV FOR... UD PRN IV 11/16/17 12:30 12/16/17 12:29 Glucagon (Glucagon Inj) 1 mg UD PRN SQ 11/16/17 12:30 12/16/17 12:29 Cholecalciferol (Vitamin D Tab) 1,000 inter.unit DAILY PO 11/17/17 09:00 12/17/17 08:59 11/20/17 08:36 1,000 INTER.UNIT Cyanocobalamin (Vitamin B-12 Tab) 100 mcg DAILY PO 11/17/17 09:00 12/17/17 08:59 11/20/17 08:51 100 MCG Levetiracetam (Keppra Tab) 750 mg BID PO 11/16/17 21:00 12/16/17 20:59 11/20/17 08:51 750 MG Metoprolol Tartrate (Lopressor Tab) 25 mg BID PO 11/16/17 21:00 12/16/17 20:59 11/20/17 08:35 25 MG Simvastatin (Zocor Tab) 20 mg QPM PO 11/16/17 21:00 12/16/17 20:59 11/19/17 21:05 20 MG Zolpidem Tartrate (Ambien Tab) 5 mg HS PRN PO 11/16/17 12:45 12/16/17 12:44 11/19/17 21:04 5 MG Amlodipine Besylate (Norvasc Tab) 10 mg QAM PO 11/17/17 09:00 12/17/17 08:59 11/20/17 08:36 10 MG Polyethylene (Miralax Powder Packet) 17 gm DAILY PRN PO 11/16/17 15:00 12/16/17 14:59 11/19/17 21:04 17 GM Ferrous Sulfate (Feosol Tab) 325 mg TIDM PO 11/16/17 17:45 12/16/17 17:44 11/20/17 13:07 325 MG Daptomycin 300 mg/ Syringe 6 ml @ 3 mls/min Q48H IV 11/18/17 16:00 12/30/17 15:59 11/18/17 16:29 3 MLS/MIN Aspirin (Ecotrin Tab) 81 mg BIDM PO 11/17/17 08:30 12/17/17 08:29 11/20/17 08:36 81 MG Citalopram Hydrobromide (celeXA TAB) 20 mg DAILY@1330 PO 11/18/17 13:30 12/18/17 13:29 11/20/17 13:07 20 MG Calcium/Vitamin D (Caltrate Plus Tab) 1 tab BID@0900,1330 PO 11/18/17 09:00 12/18/17 08:59 11/20/17 13:06 1 TAB Magnesium Hydroxide (Milk Of Magnesia Susp) 30 ml Q6H PRN PO 11/18/17 14:45 12/18/17 14:44 11/20/17 06:07 30 ML Docusate Sodium (coLACE CAP) 100 mg BID PO 11/18/17 21:00 12/18/17 20:59 11/20/17 08:34 100 MG Al Hydrox/Mg Hydrox/Simethicone (Maalox Max Susp) 15 ml Q4H PRN PO 11/18/17 14:45 12/18/17 14:44 Multivitamins (Multivitamin Tab) 1 tab QAM PO 11/19/17 09:00 12/19/17 08:59 11/20/17 08:35 1 TAB Insulin Aspart (novoLOG ASPART) SLIDING SCALE If C... ACHS SC 11/19/17 08:00 12/19/17 07:59 11/20/17 13:06 3 UNITS Acetaminophen (Tylenol Tab) tylenol 325mg tab 1-2 ... Q4H PRN PO 11/19/17 15:30 12/16/17 11:44
[2017-11-20] MEDS: POLYETHYLENE (MIRALAX) 17 GM PACK PO PRN (18:07)
[2017-11-20] MEDS: ZOLPIDEM TARTRATE 5 MG TAB PO PRN (21:01)
[2017-11-20] MEDS: SIMVASTATIN 20 MG TAB PO SCH (21:03)
[2017-11-20 21:16] VITALS: BP 145/75; PULSE 73
[2017-11-20 22:55] VITALS: BP 153/69; PULSE 65; TEMP 36.7; O2SAT 88
[2017-11-20 23:00] VITALS: O2SAT 93
[2017-11-21 06:50] LABS: HEMATOCRIT 28.7 % (37-47); HEMOGLOBIN 9.4 g/dL (12.0-16.0); MEAN CELL VOLUME 88.6 fL (80-100); MEAN CORPUSCULAR HGB CONC 32.8 g/dl (32-36); MEAN PLATELET VOLUME 8.5 fL (7.4-10.4); PLATELET COUNT 384 K/uL (130-400); RED CELL DISTRIBUTION WIDTH CV 14.5 % (11.5-14.5); RED CELL DISTRIBUTION WIDTH SD 47.4 fL (36.4-46.3); WHITE BLOOD COUNT 21.12 K/uL (4.8-10.8)
[2017-11-21 07:41] VITALS: BP 155/67; PULSE 70; TEMP 36.7; O2SAT 97
[2017-11-21] MEDS: SODIUM CHLORIDE 0.9% 1000ML 1,000 ML IV SCH (07:52)
[2017-11-21] MEDS: MAGNESIUM HYDROXIDE SUSP 30 ML UDC PO PRN (09:10)
[2017-11-21] MEDS: FERROUS SULFATE 325 MG TAB PO SCH ×3 (09:10→17:31)
[2017-11-21] MEDS: CALCIUM 600MG + VIT D 400 IU TAB PO SCH ×2 (09:10→12:47)
[2017-11-21] MEDS: CYANOCOBALAMIN 100 MCG TAB (VIT B-12) PO SCH (09:11)
[2017-11-21] MEDS: LEVETIRACETAM 500 MG TAB PO SCH ×2 (09:11→21:29)
[2017-11-21] MEDS: MULTIVITAMIN TAB PO SCH (09:12)
[2017-11-21] MEDS: ASPIRIN 81 MG ECTAB PO SCH ×2 (09:12→17:31)
[2017-11-21] MEDS: DOCUSATE SODIUM 100 MG CAP PO SCH ×2 (09:12→21:28)
[2017-11-21] MEDS: CHOLECALCIFEROL 1000 INTER.UNIT TAB PO SCH (09:12)
[2017-11-21] MEDS: AMLODIPINE BESYLATE 5 MG TAB PO SCH (09:12)
[2017-11-21] MEDS: METOPROLOL TARTRATE 25 MG TAB PO SCH ×2 (09:12→21:29)
[2017-11-21] MEDS: INSULIN ASPART 100 UNITS/ML 3 ML PEN SC SCH ×4 (09:20→21:47)
[2017-11-21] MEDS: INSULIN GLARGINE SOLOSTAR 100 UNITS/ML 3 ML PEN SC SCH ×2 (09:21→21:47)
[2017-11-21] MEDS ORDERED: BISACODYL 10 MG SUPP PR PRN (10:00)
--- NOTE | 2017-11-21 12:01 | Progress Note ---
Subjective Date of Service: Nov 21, 2017. Subjective remains on dapto, OR cultues with gpc, awaiting final. afebrile. blood cultures negative. Problem List Medical Problems: (1) Abscess of right hip Status: Acute (2) Altered mental status Status: Acute (3) Bradycardia Status: Acute (4) Cellulitis of right hip Status: Acute (5) Expressive aphasia Status: Acute (6) Fall Status: Acute (7) Possible urinary tract infection Status: Acute (8) Receptive aphasia Status: Acute (9) Skin tear of right hand without complication Status: Acute Objective Vital Signs Date Time Temp Pulse Resp B/P (MAP) Pulse Ox O2 Delivery O2 Flow Rate FiO2 11/21/17 07:41 36.7 70 16 155/67 (96) 97 2.0 11/21/17 07:40 Room Air 11/20/17 23:55 Nasal Cannula 2.0 11/20/17 23:00 93 Nasal Cannula 2.0 11/20/17 22:55 36.7 65 18 153/69 (97) 88 Room Air 11/20/17 21:16 73 145/75 (98) 11/20/17 16:30 Room Air 11/20/17 15:21 36.6 70 18 152/68 (96) 93 Room Air Laboratory Results Item Value Date Time Gram Stain - Final Resulted 11/18/17 1110 Joint Fluid/Space (Synovial) Hip , Right Gram Stain - Final Resulted 11/18/17 1100 Drainage-Deep Hip , Right Gram Stain - Final Resulted 11/18/17 1055 Drainage-Deep Hip , Right Blood Culture - Preliminary Resulted 11/16/17 0910 Blood NO GROWTH TO DATE. Blood Culture - Preliminary Resulted 11/16/17 0900 Blood NO GROWTH TO DATE. Last 24 Hours Test 11/20/17 12:02 11/20/17 16:53 11/20/17 17:09 11/20/17 20:36 Bedside Glucose 173 mg/dl 190 mg/dl 255 mg/dl Vitamin B12 Level 1095 pg/mL Test 11/21/17 05:58 11/21/17 08:00 White Blood Count 21.12 K/uL Red Blood Count 3.24 M/uL Hemoglobin 9.4 g/dL Hematocrit 28.7 % Mean Corpuscular Volume 88.6 fL Mean Corpuscular Hemoglobin 29.0 pg Mean Corpuscular Hemoglobin Concent 32.8 g/dl RDW Standard Deviation 47.4 fL RDW Coefficient of Variation 14.5 % Platelet Count 384 K/uL Mean Platelet Volume 8.5 fL Iron Level 24 mcg/dl Total Iron Binding Capacity 131 mcg/dl Transferrin 101 mg/dl Transferrin % Saturation 17 % Ferritin 293.5 ng/ml Folate 4.48 ng/mL Bedside Glucose 103 mg/dl Assessment and Plan (1) Cellulitis of right hip Assessment & Plan: now with all cultures growing gpc will continue on dapto. will stop aztreonnam. will require prolonged course of abx. blood cultures negative. will follow final results. (2) Abscess of right hip
[2017-11-21] MEDS: CITALOPRAM 20 MG TAB PO SCH (12:53)
--- NOTE | 2017-11-21 12:54 | Orthopedic Progress Note ---
Orthopedic Progress Note Date of Service Nov 21, 2017. Subjective Post OP Day: 3 Additional Notes: Pt getting back into bed with nursing help. Appears to be ambulating fairly well. States she feels very tired. Nursing states she has been OOB a lot today. No new complaints. Had a BM today. Objective Dressings with drainage noted. Dressing was changed earlier by Wound Care team. Thigh soft, NT. Date Time Temp Pulse Resp B/P (MAP) Pulse Ox O2 Delivery O2 Flow Rate FiO2 11/21/17 07:41 36.7 70 16 155/67 (96) 97 2.0 11/21/17 07:40 Room Air 11/20/17 23:55 Nasal Cannula 2.0 11/20/17 23:00 93 Nasal Cannula 2.0 11/20/17 22:55 36.7 65 18 153/69 (97) 88 Room Air 11/20/17 21:16 73 145/75 (98) 11/20/17 16:30 Room Air 11/20/17 15:21 36.6 70 18 152/68 (96) 93 Room Air Laboratory Results 24 Hours: Test 11/21/17 05:58 Hematocrit 28.7 % Hemoglobin 9.4 g/dL Assessment & Plan Assessment: POD#3 SP I&D RIGHT HIP, DEBRIDEMENT OF ULCER AND APPLICATION OF WOUND VAC. Plan: DEEP CULTURES SHOWING GRAM + COCCI. SUPERFICIAL WOUND GROWING CORYNEBACTERIM. CONTINUE DAPTOMYCIN, APPRECIATE INFX DZ INPUT PAIN MANAGEMENT WOUND VAC REMOVED DUE TO FURTHER TISSUE NECROSIS NOTED. DR FIELD WILL SEE PT TODAY FOR POSSIBLE DEBRIDEMENT. ? ABILITY TO USE ANOTHER VAC AFTERWARDS VS NEED FOR A SECOND I&D IN THE OR. MEDICAL MANAGENT DC PLANNING- PATIENT REQUESTING REFERRAL TO [facility]. PLAN FOR [facility] WHEN DECISION FOR FURTHER WOUND CARE FINALIZED PICC LINE PLACED YESTERDAY.
[2017-11-21 15:04] VITALS: BP 157/66; PULSE 67; TEMP 36.6; O2SAT 91
[2017-11-21] MEDS ORDERED: CLONIDINE HCL 0.1 MG TAB PO PRN (19:15)
--- NOTE | 2017-11-21 19:17 | Progress Note ---
Medicine Progress Note Date & Time of Visit: Nov 21, 2017 at 19:07. Subjective seen resting in bed, comfortable s/p debridement of right hip today states she feels fine, just tired has some pain on the right hip denies other symptoms Objective Last 8 Hrs Date Time Temp Pulse Resp B/P (MAP) Pulse Ox O2 Delivery O2 Flow Rate FiO2 11/21/17 15:15 Room Air 11/21/17 15:04 36.6 67 15 157/66 (96) 91 Room Air Physical Exam: General- oriented x3, not in distress, speaks in sentences with no effort Eyes- anicteric ENT- oropharynx clear Neck- supple, no JVD Lungs- clear to auscultation bilaterally Heart- regular rhythm; no murmur, normal rate Abdomen- normal bowel sounds, soft, nontender Extremities- no pretibial edema, no calf tenderness; peripheral pulses intact Right Hip: dressing in place, no bleeding, discharge Neuro- alert, oriented x 3; no gross focal deficits Skin- warm & dry Laboratory Results: Last 24 Hours Test 11/20/17 20:36 11/21/17 05:58 11/21/17 08:00 11/21/17 11:57 Bedside Glucose 255 mg/dl 103 mg/dl 191 mg/dl White Blood Count 21.12 K/uL Red Blood Count 3.24 M/uL Hemoglobin 9.4 g/dL Hematocrit 28.7 % Mean Corpuscular Volume 88.6 fL Mean Corpuscular Hemoglobin 29.0 pg Mean Corpuscular Hemoglobin Concent 32.8 g/dl RDW Standard Deviation 47.4 fL RDW Coefficient of Variation 14.5 % Platelet Count 384 K/uL Mean Platelet Volume 8.5 fL Iron Level 24 mcg/dl Total Iron Binding Capacity 131 mcg/dl Transferrin 101 mg/dl Transferrin % Saturation 17 % Ferritin 293.5 ng/ml Folate 4.48 ng/mL Test 11/21/17 16:28 11/21/17 17:01 Stool Occult Blood POSITIVE Bedside Glucose 141 mg/dl Assessment & Plan This is an 87yo F with a PMH of R hip fracture s/p hip replacement in February 2017, DM II, HTN, CKD III, HLD, vulvar cancer, h/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 R Hip Abscess H/o R hip replacement in February 2017 following with [facility] wound care x [address] is suspicious for abscess Right hip seroma with possible abscess, infected total hip.infected full thickness decubitus ulcer right buttock,displaced greater trrochanter fracture and abductor tear s/p fall,s/p radha for displaced femoral neck fracture as per ortho 2.4.18: s/p I&D with wound vac and drains placement I&D Cultures (+) Gram positive cocci continue Daptomycin x few weeks, via PICC line ID input appreciated MARIELA on CKD III Cr elevated to 1.46 (~1.1 baseline) resolved given IV fluids Anemia etiology? of chronic disease vs post operative hb 7.6 received 3 units PRBC Hg improved to 10 - FOBT (+) Fe and Folate low, will replace - Protonix IV BID may need GI consult if Hg continues to trend down HTN: on metoprolol, amlodipine will monitor Chronic dyspnea on exertion: evaluated during previous admission in February 13 deconditioning PT/OT eval Presence of mild grade 1 diastolic dysfunction on echo EKG unremarkable f/u chest xra pa/lateral view-unremarkable Vulvar malignant neoplasm: As per H and P"Diagnosed with vulvar mass by Dr. 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 to [facility] in [place] offered but patient not interested " f/u with OBGYN Generalized seizure disorder: Stable on home dose keppra DM II: A1c of 7.0 in February 2017 holding home meds on basal bolus regimen Depression: on celexa HLD: on statin H/o CVA: Stable, no residual deficit HOLD asa due to anemia, positive FOBT DVT Ppx: SCDs hold heparin and ASA as patient has anemia, (+) FOBT Code status: DNR per admission PCP: [facility] Dispo: Admitted to med surg. pt/ot plan for rehab social service for d/c planning Current Inpatient Medications: Current Inpatient Medications Medications (Trade) Dose Ordered Sig/Zaina Route Start Time Stop Time Status Last Admin Dose Admin Ondansetron HCl (Zofran Inj) 4 mg Q6H PRN IV 11/16/17 11:45 12/16/17 11:44 Sodium Chloride 1,000 ml @ 50 mls/hr Q20H IV 11/16/17 15:00 12/16/17 14:59 11/21/17 07:52 50 MLS/HR Insulin Glargine (Lantus Solostar Pen) 6 units Q12 SC 11/16/17 21:00 12/16/17 20:59 11/21/17 09:21 6 UNITS Glucose (Glucose 40% Gel) 15-30 GRAMS 15 GRAMS... UD PRN PO 11/16/17 12:30 12/16/17 12:29 Glucose (Glucose Chew Tab) 4-8 Tablets 4 Tabl... UD PRN PO 11/16/17 12:30 12/16/17 12:29 Dextrose (Dextrose 50% 50ML Syringe) 25-50ML OF 50% DW IV FOR... UD PRN IV 11/16/17 12:30 12/16/17 12:29 Glucagon (Glucagon Inj) 1 mg UD PRN SQ 11/16/17 12:30 12/16/17 12:29 Cholecalciferol (Vitamin D Tab) 1,000 inter.unit DAILY PO 11/17/17 09:00 12/17/17 08:59 11/21/17 09:12 1,000 INTER.UNIT Cyanocobalamin (Vitamin B-12 Tab) 100 mcg DAILY PO 11/17/17 09:00 12/17/17 08:59 11/21/17 09:11 100 MCG Levetiracetam (Keppra Tab) 750 mg BID PO 11/16/17 21:00 12/16/17 20:59 11/21/17 09:11 750 MG Metoprolol Tartrate (Lopressor Tab) 25 mg BID PO 11/16/17 21:00 12/16/17 20:59 11/21/17 09:12 25 MG Simvastatin (Zocor Tab) 20 mg QPM PO 11/16/17 21:00 12/16/17 20:59 11/20/17 21:03 20 MG Zolpidem Tartrate (Ambien Tab) 5 mg HS PRN PO 11/16/17 12:45 12/16/17 12:44 11/20/17 21:01 5 MG Amlodipine Besylate (Norvasc Tab) 10 mg QAM PO 11/17/17 09:00 12/17/17 08:59 11/21/17 09:12 10 MG Polyethylene (Miralax Powder Packet) 17 gm DAILY PRN PO 11/16/17 15:00 12/16/17 14:59 11/20/17 18:07 17 GM Ferrous Sulfate (Feosol Tab) 325 mg TIDM PO 11/16/17 17:45 12/16/17 17:44 11/21/17 17:31 325 MG Daptomycin 300 mg/ Syringe 6 ml @ 3 mls/min Q48H IV 11/18/17 16:00 12/30/17 15:59 11/20/17 16:44 3 MLS/MIN Aspirin (Ecotrin Tab) 81 mg BIDM PO 11/17/17 08:30 12/17/17 08:29 11/21/17 17:31 81 MG Citalopram Hydrobromide (celeXA TAB) 20 mg DAILY@1330 PO 11/18/17 13:30 12/18/17 13:29 11/21/17 12:53 20 MG Calcium/Vitamin D (Caltrate Plus Tab) 1 tab BID@0900,1330 PO 11/18/17 09:00 12/18/17 08:59 11/21/17 09:10 1 TAB Magnesium Hydroxide (Milk Of Magnesia Susp) 30 ml Q6H PRN PO 11/18/17 14:45 12/18/17 14:44 11/21/17 09:10 30 ML Docusate Sodium (coLACE CAP) 100 mg BID PO 11/18/17 21:00 12/18/17 20:59 11/21/17 09:12 100 MG Al Hydrox/Mg Hydrox/Simethicone (Maalox Max Susp) 15 ml Q4H PRN PO 11/18/17 14:45 12/18/17 14:44 Multivitamins (Multivitamin Tab) 1 tab QAM PO 11/19/17 09:00 12/19/17 08:59 11/21/17 09:12 1 TAB Insulin Aspart (novoLOG ASPART) SLIDING SCALE If C... ACHS SC 11/19/17 08:00 12/19/17 07:59 11/21/17 18:20 1 UNITS Acetaminophen (Tylenol Tab) tylenol 325mg tab 1-2 ... Q4H PRN PO 11/19/17 15:30 12/16/17 11:44 Bisacodyl (Dulcolax Supp) 10 mg DAILY PRN UT 11/21/17 10:00 12/21/17 09:59 Folic Acid (Folvite Tab) 1 mg QAM PO 11/22/17 09:00 12/22/17 08:59 Enteral Nutritional Formula (Boost Glucose Control) 1 can BID PO 11/21/17 21:00 12/21/17 20:59
[2017-11-21] MEDS ORDERED: PANTOprazole INJ 40 MG in SYRINGE 0 ML IV ONE (19:30)
[2017-11-21] MEDS: SIMVASTATIN 20 MG TAB PO SCH (21:29)
[2017-11-21 21:30] VITALS: BP 173/67; PULSE 67
[2017-11-21] MEDS: ZOLPIDEM TARTRATE 5 MG TAB PO PRN (21:41)
[2017-11-21] MEDS: BOOST GLUCOSE CONTROL PO SCH (21:53)
[2017-11-21 22:55] VITALS: BP 126/62; PULSE 52; TEMP 36.4; O2SAT 93
[2017-11-22] MEDS: SODIUM CHLORIDE 0.9% 1000ML 1,000 ML IV SCH ×2 (02:17→22:18)
[2017-11-22 06:04] LABS: HEMATOCRIT 29.4 % (37-47); HEMOGLOBIN 9.7 g/dL (12.0-16.0); MEAN CELL VOLUME 89.1 fL (80-100); MEAN CORPUSCULAR HEMOGLOBIN 29.4 pg (25-34); MEAN PLATELET VOLUME 8.3 fL (7.4-10.4); PLATELET COUNT 397 K/uL (130-400); RED CELL DISTRIBUTION WIDTH CV 14.4 % (11.5-14.5); RED CELL DISTRIBUTION WIDTH SD 46.5 fL (36.4-46.3); WHITE BLOOD COUNT 19.78 K/uL (4.8-10.8)
[2017-11-22 07:49] VITALS: BP 158/68; PULSE 67; TEMP 36.6; O2SAT 91
[2017-11-22] MEDS: INSULIN ASPART 100 UNITS/ML 3 ML PEN SC SCH ×4 (08:00→20:59)
[2017-11-22] MEDS: DOCUSATE SODIUM 100 MG CAP PO SCH ×2 (09:00→20:44)
[2017-11-22] MEDS: PANTOprazole INJ 40 MG in SYRINGE 0 ML IV SCH ×2 (09:11→20:44)
[2017-11-22] MEDS: FERROUS SULFATE 325 MG TAB PO SCH ×3 (09:12→17:30)
[2017-11-22] MEDS: CALCIUM 600MG + VIT D 400 IU TAB PO SCH ×2 (09:13→13:46)
[2017-11-22] MEDS: AMLODIPINE BESYLATE 5 MG TAB PO SCH (09:13)
[2017-11-22] MEDS: CYANOCOBALAMIN 100 MCG TAB (VIT B-12) PO SCH (09:13)
[2017-11-22] MEDS: LEVETIRACETAM 500 MG TAB PO SCH ×2 (09:14→20:47)
[2017-11-22] MEDS: CHOLECALCIFEROL 1000 INTER.UNIT TAB PO SCH (09:15)
[2017-11-22] MEDS: MULTIVITAMIN TAB PO SCH (09:16)
[2017-11-22] MEDS: METOPROLOL TARTRATE 25 MG TAB PO SCH ×2 (09:16→20:49)
[2017-11-22] MEDS: INSULIN GLARGINE SOLOSTAR 100 UNITS/ML 3 ML PEN SC SCH ×2 (09:24→21:00)
[2017-11-22] MEDS: BOOST GLUCOSE CONTROL PO SCH ×2 (09:24→20:44)
--- NOTE | 2017-11-22 11:45 | Gastrointestinal Consultation ---
Gastrointestinal Consultation Date of Consultation: Nov 22, 2017 Attending Physician: Andrew Tierney Consulting Physician: Darren Monzon Reason for Consultation: Possible GI bleed History of Present Illness Patient is a 87 year old female seen in consultation for possible GI bleed. She has hx of R hip fracture s/p hip replacement February 2017. Currently admitted for R hip abscess. Culture from R hip wound growing several organisms, she's being followed by I.D. service, and on Daptomycin. She also has a wound VAC placed on the R hip. Pt has hx of vulvar neoplasm, which RN reports can be irritated and bleeding when perineal care is performed. She had been offered [facility] appt in [facility] but not interested. Noted that pt had been chronically anemic since last year (Hgb baseline 9-10). Several days ago Hgb dropped to 8, she had been transfused 3U PRBC between 11/18-11/19. She had + FOBT. In speaking with NA today, pt's stool is dark but no signs of tarry or melanotic appearance. She is currently on ferrous sulfate and FA supplements. Never had any endoscopies before per her report but I did find a note in [facility] that she had colonoscopy in [address] Hallman which was normal. She denies any abd pain, n/v. Appetite low , only eating a few bites of food and Boost per RN. Past Medical/Surgical History Medical Problems: (1) Abscess of right hip Status: Acute (2) Altered mental status Status: Acute (3) Bradycardia Status: Acute (4) Cellulitis of right hip Status: Acute (5) Expressive aphasia Status: Acute (6) Fall Status: Acute (7) Possible urinary tract infection Status: Acute (8) Receptive aphasia Status: Acute (9) Skin tear of right hand without complication Status: Acute Past Medical History: Past Medical/Surgical History Medical Problems: (1) Anxiety disorder Status: Chronic (2) Cerebrovascular disease Permanent Comment: s/p stroke without significant residual Status: Chronic (3) CKD (chronic kidney disease) stage 3, GFR 30-59 ml/min Status: Chronic (4) Depression Status: Chronic (5) DM type 2 (diabetes mellitus, type 2) Status: Chronic (6) Hyperlipidemia Status: Chronic (7) Hypertension Status: Chronic (8) Osteoporosis Status: Chronic (9) PVD (peripheral vascular disease) Status: Chronic (10) Seizure disorder Status: Chronic (11) Vaginal cancer Status: Chronic Past Surgical History: Surgical Problems: (1) History of total hip replacement Status: Chronic (2) Hx of cataract surgery Status: Resolved (3) S/P tonsillectomy and adenoidectomy Status: Chronic (4) Status post appendectomy Status: Resolved (5) Status post cholecystectomy Status: Resolved Family History FH: lung cancer BROTHER FH: stroke FATHER Oral cancer MOTHER Social History Smoking Status: Never Smoker Alcohol Use: none Drug Use: none Marital Status: Housing Status: lives with family Occupation Status: retired Allergies Coded Allergies: Amoxicillin (Verified Allergy, Severe, CVA SYMPTOMS, 11/16/17) Penicillins (Unverified Allergy, Unknown, POSS CX OF CVA, 11/16/17) Risedronate (Unverified Allergy, Unknown, UNKNOWN, 11/16/17) Diphenhydramine (Unverified Adverse Reaction, Unknown, N&V, 11/16/17) Prednisone (Unverified Adverse Reaction, Unknown, HIGH BS, 11/16/17) Current Medications Home Meds and Scripts Medications Dose Route/Sig Max Daily Dose Days Date Category Dose Instructions Kp Ferrous Sulfate (Ferrous Sulfate) 325 Mg Tab 325 Mg PO TIDM 11/16/17 Reported Docusate Sodium 100 Mg Cap 100 Mg PO BID PRN 11/16/17 Reported Aspirin Ec (Aspirin) 81 Mg Tab 81 Mg PO BIDM 11/16/17 Reported Vitamin D-3 (Cholecalciferol) 1,000 Unit Tab 1,000 Units PO DAILY 11/16/17 Reported Lasix (Furosemide) 20 Mg Tab 20 Mg PO 3XWK 11/16/17 Reported MON,WED,FRI Lopressor (Metoprolol Tartrate) 25 Mg Tab 25 Mg PO BID 11/16/17 Reported Amlodipine Besylate 10 Mg Tab 10 Mg PO DAILY 30 03/13/17 Rx Novolog Mix 70/30 (Insulin Aspart Prota 70%/Aspart 30%) Susp 8 Units SC QPM 03/06/17 Reported Inject 8 units subcutaneously before supper. Novolog Mix 70/30 (Insulin Aspart Prota 70%/Aspart 30%) Susp 14 Units SC QAM 03/06/17 Reported Inject 14 units subcutaneously before breakfast. Vitamin B-12 (Cyanocobalamin) 100 Mcg Tab 100 Mcg PO DAILY 05/28/16 Rx Levetiracetam (Levetiractam) 500 Mg Tab 750 Mg PO BID 05/28/16 Rx Multivitamin (Multivitamins) Tab 1 Tab PO DAILY 05/24/16 Reported Calcium (Calcium Carbonate-Vitamin D) 1 Tab Tab 1 Tab PO BID 05/24/16 Reported Prolia (Denosumab) 60 Mg/Ml Justyna 60 Mg SQ [id number] 05/24/16 Reported Miralax (Polyethylene Glycol 3350) 1 Pow Pow 17 Gm PO BID PRN 11/03/13 Reported Ambien (Zolpidem Tartrate) 5 Mg Tab 5 Mg PO HS PRN 11/03/13 Reported Zocor (Simvastatin) 20 Mg Tab 20 Mg PO QPM 09/10/13 Reported Citalopram Hydrobromide 20 Mg Tab 20 Mg PO HS 09/10/13 Reported Review of Systems Constitutional: + weakness, No fever, No chills Respiratory: + shortness of breath, No cough Cardiac: No chest pain Abdomen: + see HPI, No pain, No nausea, No vomiting Musculoskeletal: + see HPI Physical Exam Date Time Temp Pulse Resp B/P (MAP) Pulse Ox O2 Delivery O2 Flow Rate FiO2 11/22/17 07:49 36.6 67 16 158/68 (98) 91 Room Air 11/21/17 23:15 Nasal Cannula 2.0 11/21/17 22:55 36.4 52 16 126/62 (83) 93 Room Air 11/21/17 21:30 67 173/67 (102) 11/21/17 15:15 Room Air 11/21/17 15:04 36.6 67 15 157/66 (96) 91 Room Air General Appearance: no apparent distress, + thin Eyes: normal inspection, PERRL, EOMI Neck: supple, no JVD, trachea midline Respiratory/Chest: no respiratory distress, no accessory muscle use, + decreased breath sounds Cardiovascular: regular rate, rhythm, no gallop, no murmur Abdomen: normal bowel sounds, non tender, soft Extremities: normal inspection, no pedal edema, no calf tenderness Neurologic/Psych: alert, normal mood/affect, oriented x 3 Skin: normal color, no jaundice, no rash Laboratory Results Last 24 Hours Test 11/21/17 11:57 11/21/17 16:28 2/7/18 17:01 11/21/17 20:34 Bedside Glucose 191 mg/dl 141 mg/dl 169 mg/dl Stool Occult Blood POSITIVE Test 11/22/17 05:45 11/22/17 08:12 White Blood Count 19.78 K/uL Red Blood Count 3.30 M/uL Hemoglobin 9.7 g/dL Hematocrit 29.4 % Mean Corpuscular Volume 89.1 fL Mean Corpuscular Hemoglobin 29.4 pg Mean Corpuscular Hemoglobin Concent 33.0 g/dl RDW Standard Deviation 46.5 fL RDW Coefficient of Variation 14.4 % Platelet Count 397 K/uL Mean Platelet Volume 8.3 fL Bedside Glucose 96 mg/dl Impression Patient is a 87 year old female seen for anemia, + FOBT. She had several issues currently including R hip abscess (s/p R hip replacement for fracture in February 2017), vulva cancer, MARIELA on CKD - all of which can contribute to her chronic anemia. He had a drop of Hgb several days ago to 7.5 but after 3U PRBC had been at baseline Hgb between 9-10. Though + FOBT, RN reports no signs of melanotic stools. Stools dark but on iron. Her vulva is irritated when perineal care is obtained and can bleed, possible cause of + FOBT study Per medical record review, colonoscopy in 2009 normal. Never had EGD per pt's report. Plan - Monitor H/H and transfuse prn - May continue Protonix 40mg BID for stress ulcer prevention - Would not pursue endoscopy eval at this time unless sindi s/s if GI bleeding and drop in H/H again. Then we can re-eval for possible EGD, doubt she can tolerate colonoscopy prep. I performed a history and physical examination of the patient. I have discussed the patient's case, impression and plan with Nicol MCGUIRE. Her note reflects my findings and plan. No signs of high grade GI bleeding. I would not subject this elderly patient to invasive testing. Darren Monzon MD
--- NOTE | 2017-11-22 13:32 | Orthopedic Progress Note ---
Orthopedic Progress Note Date of Service Nov 22, 2017. Subjective Post OP Day: 4 Reports: feeling well, Denies: chest pain, SOB, nausea / vomiting, light headedness, calf pain Objective calves soft nontender, N/V intact, hip located, dressing C/D/I (wound vac), A&O x3, toes mobile Date Time Temp Pulse Resp B/P (MAP) Pulse Ox O2 Delivery O2 Flow Rate FiO2 11/22/17 08:00 Room Air 11/22/17 07:49 36.6 67 16 158/68 (98) 91 Room Air 11/21/17 23:15 Nasal Cannula 2.0 11/21/17 22:55 36.4 52 16 126/62 (83) 93 Room Air 11/21/17 21:30 67 173/67 (102) 11/21/17 15:15 Room Air 11/21/17 15:04 36.6 67 15 157/66 (96) 91 Room Air Laboratory Results 24 Hours: Test 11/22/17 05:45 Hematocrit 29.4 % Hemoglobin 9.7 g/dL Assessment & Plan Assessment: POD#4 SP I&D RIGHT HIP, DEBRIDEMENT OF ULCER AND APPLICATION OF WOUND VAC. Plan: DEEP CULTURES SHOWING GRAM + COCCI. SUPERFICIAL WOUND GROWING CORYNEBACTERIM. CONTINUE DAPTOMYCIN, APPRECIATE INFX DZ INPUT PAIN MANAGEMENT WOUND VAC REMOVED DUE TO FURTHER TISSUE NECROSIS NOTED. DR FIELD NOW ON [facility] DC PLANNING- PATIENT REQUESTING REFERRAL TO [facility]. PLAN FOR [facility] WHEN DECISION FOR FURTHER WOUND CARE FINALIZED PICC LINE PLACED
[2017-11-22] MEDS: CITALOPRAM 20 MG TAB PO SCH (13:46)
--- NOTE | 2017-11-22 14:16 | Progress Note ---
Subjective Date of Service: Nov 22, 2017. Subjective pt with wound vac removed due to necrosis, wound care eval pending, also now with stool + blood, GI following. OR culture growing peptostreptococcus, remains on dapto. tolerating well. remains afebrile. wbc slightly improved to 19 today. awaiting placement post d/c. Problem List Medical Problems: (1) Abscess of right hip Status: Acute (2) Altered mental status Status: Acute (3) Bradycardia Status: Acute (4) Cellulitis of right hip Status: Acute (5) Expressive aphasia Status: Acute (6) Fall Status: Acute (7) Possible urinary tract infection Status: Acute (8) Receptive aphasia Status: Acute (9) Skin tear of right hand without complication Status: Acute Objective Vital Signs Date Time Temp Pulse Resp B/P (MAP) Pulse Ox O2 Delivery O2 Flow Rate FiO2 11/22/17 08:00 Room Air 11/22/17 07:49 36.6 67 16 158/68 (98) 91 Room Air 11/21/17 23:15 Nasal Cannula 2.0 11/21/17 22:55 36.4 52 16 126/62 (83) 93 Room Air 11/21/17 21:30 67 173/67 (102) 11/21/17 15:15 Room Air 11/21/17 15:04 36.6 67 15 157/66 (96) 91 Room Air Laboratory Results Last 24 Hours Test 11/21/17 16:28 11/21/17 17:01 11/21/17 20:34 11/22/17 05:45 Stool Occult Blood POSITIVE Bedside Glucose 141 mg/dl 169 mg/dl White Blood Count 19.78 K/uL Red Blood Count 3.30 M/uL Hemoglobin 9.7 g/dL Hematocrit 29.4 % Mean Corpuscular Volume 89.1 fL Mean Corpuscular Hemoglobin 29.4 pg Mean Corpuscular Hemoglobin Concent 33.0 g/dl RDW Standard Deviation 46.5 fL RDW Coefficient of Variation 14.4 % Platelet Count 397 K/uL Mean Platelet Volume 8.3 fL Test 11/22/17 08:12 11/22/17 12:13 Bedside Glucose 96 mg/dl 113 mg/dl Assessment and Plan (1) Cellulitis of right hip Assessment & Plan: continue dapto, likely transition to snf after wound care eval, vac plans and GI workup. will continue dapto, would give min 6 weeks, will need weekly labs, cbc,cmp, esr cpk while on dapto. can follow with ID at wound center as well post d/c. If unable to receive dapto at snf due to cost, could transtion to IV vanco, maintain trough at 15-20. (2) Abscess of right hip
[2017-11-22 15:18] VITALS: BP 150/69; PULSE 66; TEMP 36.3; O2SAT 93
[2017-11-22] MEDS: DAPTOmycin IV 300 MG in SYRINGE 0 ML IV SCH (16:21)
--- NOTE | 2017-11-22 19:22 | Progress Note ---
Medicine Progress Note Date & Time of Visit: Nov 22, 2017 at 19:14. Subjective patient seen resting in bed, comfortable states she feels tired denies dyspnea, chest pain, headache, dizziness hip pain under good control denies other symptoms Objective Last 8 Hrs Date Time Temp Pulse Resp B/P (MAP) Pulse Ox O2 Delivery O2 Flow Rate FiO2 11/22/17 15:18 36.3 66 20 150/69 (96) 93 Room Air 11/22/17 15:15 Room Air Physical Exam: General- oriented x3, not in distress, speaks in sentences with no effort Eyes- anicteric Neck- no JVD Lungs- clear breath sounds BL Heart- regular rhythm; no murmur, normal rate Abdomen- normal bowel sounds, soft, nontender Extremities- no pretibial edema, no calf tenderness; peripheral pulses intact Right Hip: dressing in place, no bleeding, discharge Neuro- alert, oriented x 3; no gross focal deficits Skin- warm & dry Laboratory Results: Last 24 Hours Test 11/21/17 20:34 11/22/17 05:45 11/22/17 08:12 11/22/17 12:13 Bedside Glucose 169 mg/dl 96 mg/dl 113 mg/dl White Blood Count 19.78 K/uL Red Blood Count 3.30 M/uL Hemoglobin 9.7 g/dL Hematocrit 29.4 % Mean Corpuscular Volume 89.1 fL Mean Corpuscular Hemoglobin 29.4 pg Mean Corpuscular Hemoglobin Concent 33.0 g/dl RDW Standard Deviation 46.5 fL RDW Coefficient of Variation 14.4 % Platelet Count 397 K/uL Mean Platelet Volume 8.3 fL Test 11/22/17 16:57 Bedside Glucose 158 mg/dl Assessment & Plan This is an 87yo F with a PMH of R hip fracture s/p hip replacement in February 2017, DM II, HTN, CKD III, HLD, vulvar cancer, h/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 R Hip Abscess H/o R hip replacement in February 2017 following with [facility] x [address] is suspicious for abscess Right hip seroma with possible abscess, infected total hip.infected full thickness decubitus ulcer right buttock,displaced greater trrochanter fracture and abductor tear s/p fall,s/p radha for displaced femoral neck fracture as per ortho 2.4.18: s/p I&D with wound vac and drains placement I&D Cultures (+) Peptostreptococcus, Acinetobacter continue Daptomycin x few weeks, via PICC line will need weekly labs ID input appreciated MARIELA on CKD III Cr elevated to 1.46 (~1.1 baseline) resolved given IV fluids Anemia etiology? of chronic disease vs post operative hb 7.6 received 3 units PRBC Hg improved to 10 - FOBT (+) Fe and Folate low, will replace - Protonix IV BID GI consulted - continue Protonix 40mg BID no plans for EGD will resume Aspirin tomorrow monitor Hg HTN: on metoprolol, amlodipine will monitor may need to add Clonidine Chronic dyspnea on exertion: evaluated during previous admission in February 13 deconditioning PT/OT eval Presence of mild grade 1 diastolic dysfunction on echo EKG unremarkable f/u chest xra pa/lateral view-unremarkable Vulvar malignant neoplasm: As per H and P"Diagnosed with vulvar mass by Dr. 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 [place] offered but patient not interested -- f/u with [facility] Generalized seizure disorder: Stable on home dose keppra DM II: A1c of 7.0 in February 2017 holding home meds on basal bolus regimen Depression: on celexa HLD: on statin H/o CVA: Stable, no residual deficit HOLD asa due to anemia, positive FOBT resume in AM DVT Ppx: SCDs hold heparin and ASA as patient has anemia, (+) FOBT, (+) bloody output per Wound Vac Code status: DNR per admission PCP: [facility] Dispo: pt/ot plan for rehab social service for d/c planning Current Inpatient Medications: Current Inpatient Medications Medications (Trade) Dose Ordered Sig/Zaina Route Start Time Stop Time Status Last Admin Dose Admin Ondansetron HCl (Zofran Inj) 4 mg Q6H PRN IV 11/16/17 11:45 12/16/17 11:44 Sodium Chloride 1,000 ml @ 50 mls/hr Q20H IV 11/16/17 15:00 12/16/17 14:59 11/22/17 02:17 50 MLS/HR Insulin Glargine (Lantus Solostar Pen) 6 units Q12 SC 11/16/17 21:00 12/16/17 20:59 11/22/17 09:24 6 UNITS Glucose (Glucose 40% Gel) 15-30 GRAMS 15 GRAMS... UD PRN PO 11/16/17 12:30 12/16/17 12:29 Glucose (Glucose Chew Tab) 4-8 Tablets 4 Tabl... UD PRN PO 11/16/17 12:30 12/16/17 12:29 Dextrose (Dextrose 50% 50ML Syringe) 25-50ML OF 50% DW IV FOR... UD PRN IV 11/16/17 12:30 12/16/17 12:29 Glucagon (Glucagon Inj) 1 mg UD PRN SQ 11/16/17 12:30 12/16/17 12:29 Cholecalciferol (Vitamin D Tab) 1,000 inter.unit DAILY PO 11/17/17 09:00 12/17/17 08:59 11/22/17 09:15 1,000 INTER.UNIT Cyanocobalamin (Vitamin B-12 Tab) 100 mcg DAILY PO 11/17/17 09:00 12/17/17 08:59 11/22/17 09:13 100 MCG Levetiracetam (Keppra Tab) 750 mg BID PO 11/16/17 21:00 12/16/17 20:59 11/22/17 09:14 750 MG Metoprolol Tartrate (Lopressor Tab) 25 mg BID PO 11/16/17 21:00 12/16/17 20:59 11/22/17 09:16 25 MG Simvastatin (Zocor Tab) 20 mg QPM PO 11/16/17 21:00 12/16/17 20:59 11/21/17 21:29 20 MG Zolpidem Tartrate (Ambien Tab) 5 mg HS PRN PO 11/16/17 12:45 12/16/17 12:44 11/21/17 21:41 5 MG Amlodipine Besylate (Norvasc Tab) 10 mg QAM PO 11/17/17 09:00 12/17/17 08:59 11/22/17 09:13 10 MG Polyethylene (Miralax Powder Packet) 17 gm DAILY PRN PO 11/16/17 15:00 12/16/17 14:59 11/20/17 18:07 17 GM Ferrous Sulfate (Feosol Tab) 325 mg TIDM PO 11/16/17 17:45 12/16/17 17:44 11/22/17 17:30 325 MG Daptomycin 300 mg/ Syringe 6 ml @ 3 mls/min Q48H IV 11/18/17 16:00 12/30/17 15:59 11/22/17 16:21 3 MLS/MIN Citalopram Hydrobromide (celeXA TAB) 20 mg DAILY@1330 PO 11/18/17 13:30 12/18/17 13:29 11/22/17 13:46 20 MG Calcium/Vitamin D (Caltrate Plus Tab) 1 tab BID@0900,1330 PO 11/18/17 09:00 12/18/17 08:59 11/22/17 13:46 1 TAB Magnesium Hydroxide (Milk Of Magnesia Susp) 30 ml Q6H PRN PO 11/18/17 14:45 12/18/17 14:44 11/21/17 09:10 30 ML Docusate Sodium (coLACE CAP) 100 mg BID PO 11/18/17 21:00 12/18/17 20:59 11/21/17 21:28 100 MG Al Hydrox/Mg Hydrox/Simethicone (Maalox Max Susp) 15 ml Q4H PRN PO 11/18/17 14:45 12/18/17 14:44 Multivitamins (Multivitamin Tab) 1 tab QAM PO 11/19/17 09:00 12/19/17 08:59 11/22/17 09:16 1 TAB Insulin Aspart (novoLOG ASPART) SLIDING SCALE If C... ACHS SC 11/19/17 08:00 12/19/17 07:59 11/22/17 18:05 3 UNITS Acetaminophen (Tylenol Tab) tylenol 325mg tab 1-2 ... Q4H PRN PO 11/19/17 15:30 12/16/17 11:44 Bisacodyl (Dulcolax Supp) 10 mg DAILY PRN SD 11/21/17 10:00 12/21/17 09:59 Folic Acid (Folvite Tab) 1 mg QAM PO 11/22/17 09:00 12/22/17 08:59 11/22/17 09:15 1 MG Enteral Nutritional Formula (Boost Glucose Control) 1 can BID PO 11/21/17 21:00 12/21/17 20:59 11/22/17 09:24 1 CAN Pantoprazole Sodium 40 mg/ Syringe 10 ml @ 5 mls/min Q12@0900,2100 IV 11/22/17 09:00 12/22/17 08:59 11/22/17 09:11 5 MLS/MIN Clonidine HCl (Catapres Tab) 0.1 mg Q6H PRN PO 11/21/17 19:15 12/21/17 19:14
[2017-11-22] MEDS: ZOLPIDEM TARTRATE 5 MG TAB PO PRN (20:43)
[2017-11-22] MEDS: SIMVASTATIN 20 MG TAB PO SCH (20:45)
[2017-11-22 20:50] VITALS: BP 163/61; PULSE 67
[2017-11-22] MEDS ORDERED: NURSING VERBAL MED ORDER ONE (22:30)
[2017-11-22 22:57] VITALS: BP 147/71; PULSE 65; TEMP 36.5; O2SAT 91
[2017-11-23 06:16] LABS: HEMATOCRIT 28.1 % (37-47); HEMOGLOBIN 9.4 g/dL (12.0-16.0); MEAN CELL VOLUME 89.2 fL (80-100); MEAN CORPUSCULAR HEMOGLOBIN 29.8 pg (25-34); MEAN CORPUSCULAR HGB CONC 33.5 g/dl (32-36); MEAN PLATELET VOLUME 8.3 fL (7.4-10.4); PLATELET COUNT 382 K/uL (130-400); RED CELL DISTRIBUTION WIDTH CV 14.7 % (11.5-14.5); RED CELL DISTRIBUTION WIDTH SD 46.8 fL (36.4-46.3); WHITE BLOOD COUNT 18.28 K/uL (4.8-10.8)
[2017-11-23 08:08] VITALS: BP 142/80; PULSE 72; TEMP 36.7; O2SAT 92
[2017-11-23] MEDS: FERROUS SULFATE 325 MG TAB PO SCH ×3 (08:44→18:05)
[2017-11-23] MEDS: CALCIUM 600MG + VIT D 400 IU TAB PO SCH ×2 (08:47→13:20)
[2017-11-23] MEDS: DOCUSATE SODIUM 100 MG CAP PO SCH ×2 (08:49→20:47)
[2017-11-23] MEDS: LEVETIRACETAM 500 MG TAB PO SCH ×2 (08:54→20:48)
[2017-11-23] MEDS: METOPROLOL TARTRATE 25 MG TAB PO SCH ×2 (08:56→20:48)
[2017-11-23] MEDS: MULTIVITAMIN TAB PO SCH (08:57)
[2017-11-23] MEDS: CYANOCOBALAMIN 100 MCG TAB (VIT B-12) PO SCH (08:59)
[2017-11-23] MEDS: AMLODIPINE BESYLATE 5 MG TAB PO SCH (08:59)
[2017-11-23] MEDS: CHOLECALCIFEROL 1000 INTER.UNIT TAB PO SCH (09:01)
--- NOTE | 2017-11-23 09:06 | Wound Consultation: Inpatient ---
Wound Consultation Date of Consultation: Nov 21, 2017. Attending Physician: Andrew Tierney MD Reason for Consultation: Postoperative incision and drainage abscess right hip Stage IV pressure ulcer History of Present Illness Patient was admitted to [facility] 5 days ago for further evaluation and treatment stage IV pressure ulcer to the right hip. Patient states this developed approximately one month prior. Patient had a surgical repair of a hip fracture back in February of last year. Patient had 1 episode of drainage from this area did require surgical intervention. Patient currently denies any increased pain in the area. Patient denies any fever chills or night sweats. Patient denies any chest pain or shortness of breath. Patient denies any other systemic complaints at this time. Family History FH: lung cancer BROTHER FH: stroke FATHER Oral cancer MOTHER Social History Smoking Status: Never Smoker Smokeless Tobacco Use: No Drug Use: none Marital Status: Housing Status: lives with family Occupation Status: retired Allergies Coded Allergies: Amoxicillin (Verified Allergy, Severe, CVA SYMPTOMS, 11/16/17) Penicillins (Unverified Allergy, Unknown, POSS CX OF CVA, 11/16/17) Risedronate (Unverified Allergy, Unknown, UNKNOWN, 11/16/17) Diphenhydramine (Unverified Adverse Reaction, Unknown, N&V, 11/16/17) Prednisone (Unverified Adverse Reaction, Unknown, HIGH BS, 11/16/17) Home Medications Scheduled Amlodipine Besylate (Amlodipine Besylate), 10 MG PO DAILY Aspirin (Aspirin Ec), 81 MG PO BIDM Calcium Carbonate-Vitamin D (Calcium), 1 TAB PO BID Cholecalciferol (Vitamin D-3), 1,000 UNITS PO DAILY Citalopram Hydrobromide (Citalopram Hydrobromide), 20 MG PO HS Cyanocobalamin (Vitamin B-12), 100 MCG PO DAILY Denosumab (Prolia), 60 MG SQ [id number] Ferrous Sulfate (Kp Ferrous Sulfate), 325 MG PO TIDM Furosemide (Lasix), 20 MG PO [id number] Insulin Aspart 70/30 (Novolog Mix 70/30), 14 UNITS SC QAM Insulin Aspart 70/30 (Novolog Mix 70/30), 8 UNITS SC QPM Levetiractam (Levetiracetam), 750 MG PO BID Metoprolol Tartrate (Lopressor) (Lopressor), 25 MG PO BID Multivitamin (Multivitamin), 1 TAB PO DAILY Simvastatin (Zocor), 20 MG PO QPM Scheduled PRN Docusate Sodium (Docusate Sodium), 100 MG PO BID PRN for Constipation Polyethylene Glycol 3350 (Miralax), 17 GM PO BID PRN for Constipation Zolpidem Tartrate (Ambien), 5 MG PO HS PRN for Sleep Inpatient Medications Current Inpatient Medications Medications (Trade) Dose Ordered Sig/Zaina Route Start Time Stop Time Status Last Admin Dose Admin Ondansetron HCl (Zofran Inj) 4 mg Q6H PRN IV 11/16/17 11:45 12/16/17 11:44 Sodium Chloride 1,000 ml @ 50 mls/hr Q20H IV 11/16/17 15:00 12/16/17 14:59 11/22/17 22:18 50 MLS/HR Insulin Glargine (Lantus Solostar Pen) 6 units Q12 SC 11/16/17 21:00 12/16/17 20:59 11/22/17 21:00 6 UNITS Glucose (Glucose 40% Gel) 15-30 GRAMS 15 GRAMS... UD PRN PO 11/16/17 12:30 12/16/17 12:29 Glucose (Glucose Chew Tab) 4-8 Tablets 4 Tabl... UD PRN PO 11/16/17 12:30 12/16/17 12:29 Dextrose (Dextrose 50% 50ML Syringe) 25-50ML OF 50% DW IV FOR... UD PRN IV 11/16/17 12:30 12/16/17 12:29 Glucagon (Glucagon Inj) 1 mg UD PRN SQ 11/16/17 12:30 12/16/17 12:29 Cholecalciferol (Vitamin D Tab) 1,000 inter.unit DAILY PO 11/17/17 09:00 12/17/17 08:59 11/22/17 09:15 1,000 INTER.UNIT Cyanocobalamin (Vitamin B-12 Tab) 100 mcg DAILY PO 11/17/17 09:00 12/17/17 08:59 11/22/17 09:13 100 MCG Levetiracetam (Keppra Tab) 750 mg BID PO 11/16/17 21:00 12/16/17 20:59 11/22/17 20:47 750 MG Metoprolol Tartrate (Lopressor Tab) 25 mg BID PO 11/16/17 21:00 12/16/17 20:59 11/22/17 20:49 25 MG Simvastatin (Zocor Tab) 20 mg QPM PO 11/16/17 21:00 12/16/17 20:59 11/22/17 20:45 20 MG Zolpidem Tartrate (Ambien Tab) 5 mg HS PRN PO 11/16/17 12:45 12/16/17 12:44 11/22/17 20:43 5 MG Amlodipine Besylate (Norvasc Tab) 10 mg QAM PO 11/17/17 09:00 12/17/17 08:59 11/22/17 09:13 10 MG Polyethylene (Miralax Powder Packet) 17 gm DAILY PRN PO 11/16/17 15:00 12/16/17 14:59 11/20/17 18:07 17 GM Ferrous Sulfate (Feosol Tab) 325 mg TIDM PO 11/16/17 17:45 12/16/17 17:44 11/23/17 08:44 325 MG Daptomycin 300 mg/ Syringe 6 ml @ 3 mls/min Q48H IV 11/18/17 16:00 12/30/17 15:59 11/22/17 16:21 3 MLS/MIN Citalopram Hydrobromide (celeXA TAB) 20 mg DAILY@1330 PO 11/18/17 13:30 12/18/17 13:29 11/22/17 13:46 20 MG Calcium/Vitamin D (Caltrate Plus Tab) 1 tab BID@0900,1330 PO 11/18/17 09:00 12/18/17 08:59 11/22/17 13:46 1 TAB Magnesium Hydroxide (Milk Of Magnesia Susp) 30 ml Q6H PRN PO 11/18/17 14:45 12/18/17 14:44 11/21/17 09:10 30 ML Docusate Sodium (coLACE CAP) 100 mg BID PO 11/18/17 21:00 12/18/17 20:59 11/22/17 20:44 100 MG Al Hydrox/Mg Hydrox/Simethicone (Maalox Max Susp) 15 ml Q4H PRN PO 11/18/17 14:45 12/18/17 14:44 Multivitamins (Multivitamin Tab) 1 tab QAM PO 11/19/17 09:00 12/19/17 08:59 11/22/17 09:16 1 TAB Insulin Aspart (novoLOG ASPART) SLIDING SCALE If C... ACHS SC 11/19/17 08:00 12/19/17 07:59 11/22/17 20:59 1 UNITS Acetaminophen (Tylenol Tab) tylenol 325mg tab 1-2 ... Q4H PRN PO 11/19/17 15:30 12/16/17 11:44 Bisacodyl (Dulcolax Supp) 10 mg DAILY PRN NE 11/21/17 10:00 12/21/17 09:59 Folic Acid (Folvite Tab) 1 mg QAM PO 11/22/17 09:00 12/22/17 08:59 11/22/17 09:15 1 MG Enteral Nutritional Formula (Boost Glucose Control) 1 can BID PO 11/21/17 21:00 12/21/17 20:59 11/22/17 20:44 1 CAN Pantoprazole Sodium 40 mg/ Syringe 10 ml @ 5 mls/min Q12@0900,2100 IV 11/22/17 09:00 12/22/17 08:59 11/22/17 20:44 5 MLS/MIN Clonidine HCl (Catapres Tab) 0.1 mg Q6H PRN PO 11/21/17 19:15 12/21/17 19:14 Aspirin (Ecotrin Tab) 81 mg BID PO 11/23/17 09:00 12/23/17 08:59 Physical Exam Date Time Temp Pulse Resp B/P (MAP) Pulse Ox O2 Delivery O2 Flow Rate FiO2 11/23/17 08:08 36.7 20 142/80 (100) 92 Room Air 11/23/17 08:00 Room Air 11/23/17 00:00 Room Air 11/22/17 22:57 36.5 65 16 147/71 (96) 91 Room Air 11/22/17 20:50 67 163/61 (95) 11/22/17 15:18 36.3 66 20 150/69 (96) 93 Room Air 11/22/17 15:15 Room Air General: The patient is lying in a hospital bed in no distress. Alert, cooperative and appropriate to all questions. HEENT: Pupils equal and reactive to light. Sclera clear, EOM intact. Neck: Supple, No JVD noted Chest: CTA in all segundo. No deformity Heart: RRR without murmurs, S3, S4, thrills, rubs or heaves Extremities: Right hip reveals the presence of a post surgical incision. Inferior to this site isn't ulceration measuring 7/2 by 17.5 x 3 cm with tunneling at 12 and 6:00 of 7-1/2 cm. Central slough in the bridge of necrotic tissue is present. Surrounding eschar in the margins is noted especially in the inferior region. No bone is exposed at the base. Sutures noted in the base. No active drainage or odor is noted. No periwound erythema is present. No significant pain to palpation or fluctuance noted. Distal neurovascular bundles intact. Neurological: Alert and oriented x3. No focal deficits. Monofilament testing reveals no neuropathy Skin: No rashes, papules, vesicles, excoriations Laboratory Results Last 24 Hours Test 11/22/17 12:13 11/22/17 16:57 11/22/17 20:27 11/23/17 05:34 Bedside Glucose 113 mg/dl 158 mg/dl 182 mg/dl White Blood Count 18.28 K/uL Red Blood Count 3.15 M/uL Hemoglobin 9.4 g/dL Hematocrit 28.1 % Mean Corpuscular Volume 89.2 fL Mean Corpuscular Hemoglobin 29.8 pg Mean Corpuscular Hemoglobin Concent 33.5 g/dl RDW Standard Deviation 46.8 fL RDW Coefficient of Variation 14.7 % Platelet Count 382 K/uL Mean Platelet Volume 8.3 fL Total Creatine Kinase 27 U/L Assessment & Plan Assessment: Stage IV pressure ulcer right hip Postoperative abscess and drainage right hip Plan: At this time the site did require debridement. With patient's permission and after conversation with orthopedics the patient was prepped for debridement. Betadine was applied. The bridge of necrotic tissue along with margins of eschar were debrided with a combination of scissors and forceps and a #5 curette. Minimal bleeding occurred which was controlled with direct pressure. The site will be managed with a wound VAC Adaptic in the base black foam 125 mm of negative pressure and bolstering at the margins. Patient will be reevaluated in 48 hours for wound VAC change. This represented an excisional debridement of 50 cm.
[2017-11-23] MEDS: INSULIN ASPART 100 UNITS/ML 3 ML PEN SC SCH ×4 (09:30→21:11)
[2017-11-23] MEDS: INSULIN GLARGINE SOLOSTAR 100 UNITS/ML 3 ML PEN SC SCH ×2 (09:31→21:11)
[2017-11-23] MEDS: BOOST GLUCOSE CONTROL PO SCH ×2 (09:37→20:47)
[2017-11-23] MEDS: ASPIRIN 81 MG ECTAB PO SCH ×2 (09:38→20:47)
[2017-11-23 09:45] VITALS: O2SAT 92
[2017-11-23] MEDS: PANTOprazole INJ 40 MG in SYRINGE 0 ML IV SCH ×2 (09:55→20:47)
--- NOTE | 2017-11-23 10:55 | Progress Note ---
Subjective Date of Service: Nov 23, 2017. Subjective Pt evaluation today including: conversation w/ patient, physical exam, chart review, lab review pt seen at time of vac change. underwent additional bedside debridement by wound care earlier today. now with increased output in vac, bloody and wosening breakdown of wound. surgical incision breakdown with exposed internal sutures. also with necrosis of wound and increased purulent drainage. denies pain or f/ c. no cp, sob, n/v/d. on dapto, tolerating. OR cultures with peptostreptococcus , now also with anaerobic gnr, new this am. was previously on aztreonam, recently stopped. tolerating abx. blood cultures negative and final. wbc remains elevated but slightly improved. pt appears fatigued but in no acute distress. surgery to re eval today. all remaining ros reviewed and are negative. Problem List Medical Problems: (1) Abscess of right hip Status: Acute (2) Altered mental status Status: Acute (3) Bradycardia Status: Acute (4) Cellulitis of right hip Status: Acute (5) Expressive aphasia Status: Acute (6) Fall Status: Acute (7) Possible urinary tract infection Status: Acute (8) Receptive aphasia Status: Acute (9) Skin tear of right hand without complication Status: Acute Objective Vital Signs Date Time Temp Pulse Resp B/P (MAP) Pulse Ox O2 Delivery O2 Flow Rate FiO2 11/23/17 09:45 92 Room Air 11/23/17 08:08 36.7 72 20 142/80 (100) 92 Room Air 11/23/17 08:00 Room Air 11/23/17 00:00 Room Air 11/22/17 22:57 36.5 65 16 147/71 (96) 91 Room Air 11/22/17 20:50 67 163/61 (95) 11/22/17 15:18 36.3 66 20 150/69 (96) 93 Room Air 11/22/17 15:15 Room Air Physical Exam General Appearance: WD/WN, no apparent distress Eyes: normal inspection, EOMI ENT: + pertinent finding (mmd) Neck: supple Respiratory/Chest: lungs clear, normal breath sounds, no respiratory distress, + decreased breath sounds Cardiovascular: regular rate, rhythm, no edema Abdomen: soft Extremities: no pedal edema Neurologic/Psychiatric: alert, oriented x 3 Skin: normal color Comments: surgical incision with krissy intact, mild induration noted, now with internal sutures exposed medial wound, no drainage buttock wound with increased necrosis and purulent drainage, dusky borders Laboratory Results Item Value Date Time Gram Stain - Final Resulted 11/18/17 1110 Joint Fluid/Space (Synovial) Hip , Right Gram Stain - Final Resulted 11/18/17 1100 Drainage-Deep Hip , Right Gram Stain - Final Resulted 11/18/17 1055 Drainage-Deep Hip , Right Blood Culture - Final Complete 11/16/17 0910 Blood NO GROWTH Blood Culture - Final Complete 11/16/17 0900 Blood NO GROWTH Last 24 Hours Test 11/22/17 12:13 11/22/17 16:57 11/22/17 20:27 11/23/17 05:34 Bedside Glucose 113 mg/dl 158 mg/dl 182 mg/dl White Blood Count 18.28 K/uL Red Blood Count 3.15 M/uL Hemoglobin 9.4 g/dL Hematocrit 28.1 % Mean Corpuscular Volume 89.2 fL Mean Corpuscular Hemoglobin 29.8 pg Mean Corpuscular Hemoglobin Concent 33.5 g/dl RDW Standard Deviation 46.8 fL RDW Coefficient of Variation 14.7 % Platelet Count 382 K/uL Mean Platelet Volume 8.3 fL Total Creatine Kinase 27 U/L Test 11/23/17 08:22 Bedside Glucose 106 mg/dl Assessment and Plan (1) Cellulitis of right hip Assessment & Plan: Will continue dapto for now, add ertapenem now that gnr growing as well. suspect she will require additional debridement with replacement of vac. will follow. (2) Abscess of right hip
[2017-11-23] MEDS ORDERED: ERTAPENEM IV 1 GM in SODIUM CHLOR 0.9% AD-VAN 50ML 50 ML IV SCH (12:00)
[2017-11-23] MEDS: CITALOPRAM 20 MG TAB PO SCH (13:19)
--- NOTE | 2017-11-23 14:14 | Wound Progress Note: Inpatient ---
Wound Progress Note Date of Service Nov 23, 2017. Subjective Pt evaluation today including: conversation w/ patient, physical exam, chart review Patient seen today for follow-up evaluation following debridement with wound VAC placement 2 days ago for a postoperative incision and drainage of an abscess to the right hip. Denies any specific complaints today. Objective Vital Signs Date Time Temp Pulse Resp B/P (MAP) Pulse Ox O2 Delivery O2 Flow Rate FiO2 11/23/17 09:45 92 Room Air 11/23/17 08:08 36.7 72 20 142/80 (100) 92 Room Air 11/23/17 08:00 Room Air 11/23/17 00:00 Room Air 11/22/17 22:57 36.5 65 16 147/71 (96) 91 Room Air 11/22/17 20:50 67 163/61 (95) 11/22/17 15:18 36.3 66 20 150/69 (96) 93 Room Air 11/22/17 15:15 Room Air Physical Exam Notes: Vital signs were reviewed and found to be unremarkable patient is afebrile. Wound site today shows an additional base of some granulation tissue is evolving. There is no active drainage or odor noted. No area of necrosis or eschar formation present. No significant central slough noted. No periwound erythema present. No substantial change in the measurements. Laboratory Results Last 24 Hours Test 11/22/17 16:57 11/22/17 20:27 11/23/17 05:34 11/23/17 08:22 Bedside Glucose 158 mg/dl 182 mg/dl 106 mg/dl White Blood Count 18.28 K/uL Red Blood Count 3.15 M/uL Hemoglobin 9.4 g/dL Hematocrit 28.1 % Mean Corpuscular Volume 89.2 fL Mean Corpuscular Hemoglobin 29.8 pg Mean Corpuscular Hemoglobin Concent 33.5 g/dl RDW Standard Deviation 46.8 fL RDW Coefficient of Variation 14.7 % Platelet Count 382 K/uL Mean Platelet Volume 8.3 fL Total Creatine Kinase 27 U/L Assessment and Plan Assessment: Stage IV pressure ulcer right hip Postoperative abscess and drainage right hip Plan: No additional debridement is needed today. The site will continue be managed with a wound VAC Adaptic at the base followed by black foam 125 mm of negative pressure wound VAC change Sunday. Patient continue to be monitored during her hospitalization and followed up in the outpatient clinic as needed.
[2017-11-23 15:20] VITALS: BP 154/71; PULSE 63; TEMP 36.3; O2SAT 93
--- NOTE | 2017-11-23 17:43 | Orthopedic Progress Note ---
Orthopedic Progress Note Date of Service Nov 23, 2017. Subjective Additional Notes: Pt resting comfortably. No new complaints. Objective Wound vac changed today. Dr Moralez was present to check the wound. No further debridement needed. New vac applied. Date Time Temp Pulse Resp B/P (MAP) Pulse Ox O2 Delivery O2 Flow Rate FiO2 11/23/17 15:20 36.3 63 16 154/71 (98) 93 Room Air 11/23/17 09:45 92 Room Air 11/23/17 08:08 36.7 72 20 142/80 (100) 92 Room Air 11/23/17 08:00 Room Air 11/23/17 00:00 Room Air 11/22/17 22:57 36.5 65 16 147/71 (96) 91 Room Air 11/22/17 20:50 67 163/61 (95) Laboratory Results 24 Hours: Test 11/23/17 05:34 Hematocrit 28.1 % Hemoglobin 9.4 g/dL Assessment & Plan Assessment: POD#5 SP I&D RIGHT HIP, DEBRIDEMENT OF ULCER AND APPLICATION OF WOUND VAC. Plan: DEEP CULTURES SHOWING MULTIPLE ORGANISMS. SUPERFICIAL WOUND GROWING CORYNEBACTERIM. CONTINUE DAPTOMYCIN AND ERTAPENEM. APPRECIATE INFX DZ INPUT PAIN MANAGEMENT CONTINUE PER WOUND CARE TREATMENT. NO FURTHER DEEP WASHOUTS PLANNED AT THIS TIME. MEDICAL MANAGENT DC PLANNING- PATIENT REQUESTING REFERRAL TO [facility]. PLAN FOR [facility] WHEN DECISION FOR FURTHER WOUND CARE FINALIZED PICC LINE PLACED
[2017-11-23] MEDS: POLYETHYLENE (MIRALAX) 17 GM PACK PO PRN (18:05)
[2017-11-23] MEDS: SODIUM CHLORIDE 0.9% 1000ML 1,000 ML IV SCH ×2 (18:30→22:28)
[2017-11-23 20:30] VITALS: BP 161/66; PULSE 62; O2SAT 94
--- NOTE | 2017-11-23 20:38 | Progress Note ---
Medicine Progress Note Date & Time of Visit: Nov 23, 2017 at 20:31. Subjective resting in bed, comfortable states she feels tired appears brighter though denies dyspnea, chest pain hip pain well controlled denies other symptoms Objective Last 8 Hrs Date Time Temp Pulse Resp B/P (MAP) Pulse Ox O2 Delivery O2 Flow Rate FiO2 11/23/17 16:00 Room Air 11/23/17 15:20 36.3 63 16 154/71 (98) 93 Room Air Physical Exam: General- oriented x3, not in distress, speaks in sentences with no effort Neck- no JVD Lungs- clear BS BL Heart- regular rhythm; no murmur, normal rate Abdomen- normal bowel sounds, soft, nontender Extremities- no pretibial edema, no calf tenderness; peripheral pulses intact Right Hip: dressing in place, no bleeding, discharge Neuro- alert, oriented x 3; no gross focal deficits Skin- warm & dry Laboratory Results: Last 24 Hours Test 11/23/17 05:34 11/23/17 08:22 11/23/17 11:56 11/23/17 17:05 White Blood Count 18.28 K/uL Red Blood Count 3.15 M/uL Hemoglobin 9.4 g/dL Hematocrit 28.1 % Mean Corpuscular Volume 89.2 fL Mean Corpuscular Hemoglobin 29.8 pg Mean Corpuscular Hemoglobin Concent 33.5 g/dl RDW Standard Deviation 46.8 fL RDW Coefficient of Variation 14.7 % Platelet Count 382 K/uL Mean Platelet Volume 8.3 fL Total Creatine Kinase 27 U/L Bedside Glucose 106 mg/dl 140 mg/dl 140 mg/dl Assessment & Plan This is an 87yo F with a PMH of R hip fracture s/p hip replacement in February 2017, DM II, HTN, CKD III, HLD, vulvar cancer, h/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 R Hip Abscess H/o R hip replacement in February 2017 following with [facility] wound care x [address] is suspicious for abscess Right hip seroma with possible abscess, infected total hip.infected full thickness decubitus ulcer right buttock,displaced greater trrochanter fracture and abductor tear s/p fall,s/p radha for displaced femoral neck fracture as per ortho 2.4.18: s/p I&D with wound vac and drains placement I&D Cultures (+) Peptostreptococcus, Acinetobacter, Gram negative bacilli Ertapenem added to Daptomycin Wound care on board monitor closely MARIELA on CKD III Cr elevated to 1.46 (~1.1 baseline) resolved given IV fluids Anemia etiology? of chronic disease vs post operative hb 7.6 received 3 units PRBC Hg improved to 10 - FOBT (+) Fe and Folate low, will replace - Protonix IV BID GI consulted - continue Protonix 40mg BID no plans for EGD resumed ASA -- HG stable HTN: on metoprolol, amlodipine will monitor add Clonidine Chronic dyspnea on exertion: evaluated during previous admission in February 13 deconditioning PT/OT eval Presence of mild grade 1 diastolic dysfunction on echo EKG unremarkable f/u chest xra pa/lateral view-unremarkable Vulvar malignant neoplasm: As per H and P"Diagnosed with vulvar mass by Dr. 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 Generalized seizure disorder: Stable on home dose keppra DM II: A1c of 7.0 in February 2017 holding home meds on basal bolus regimen Depression: on celexa HLD: on statin H/o CVA: Stable, no residual deficit ASA resumed DVT Ppx: SCDs ASA resumed Code status: DNR per admission PCP: [facility] Dispo: pt/ot plan for rehab social service for d/c planning Current Inpatient Medications: Current Inpatient Medications Medications (Trade) Dose Ordered Sig/Zaina Route Start Time Stop Time Status Last Admin Dose Admin Ondansetron HCl (Zofran Inj) 4 mg Q6H PRN IV 11/16/17 11:45 12/16/17 11:44 Sodium Chloride 1,000 ml @ 50 mls/hr Q20H IV 11/16/17 15:00 12/16/17 14:59 11/23/17 18:30 50 MLS/HR Insulin Glargine (Lantus Solostar Pen) 6 units Q12 SC 11/16/17 21:00 12/16/17 20:59 11/23/17 09:31 6 UNITS Glucose (Glucose 40% Gel) 15-30 GRAMS 15 GRAMS... UD PRN PO 2/2/18 12:30 12/16/17 12:29 Glucose (Glucose Chew Tab) 4-8 Tablets 4 Tabl... UD PRN PO 11/16/17 12:30 12/16/17 12:29 Dextrose (Dextrose 50% 50ML Syringe) 25-50ML OF 50% DW IV FOR... UD PRN IV 11/16/17 12:30 12/16/17 12:29 Glucagon (Glucagon Inj) 1 mg UD PRN SQ 11/16/17 12:30 12/16/17 12:29 Cholecalciferol (Vitamin D Tab) 1,000 inter.unit DAILY PO 11/17/17 09:00 12/17/17 08:59 11/23/17 09:01 1,000 INTER.UNIT Cyanocobalamin (Vitamin B-12 Tab) 100 mcg DAILY PO 11/17/17 09:00 12/17/17 08:59 11/23/17 08:59 100 MCG Levetiracetam (Keppra Tab) 750 mg BID PO 11/16/17 21:00 12/16/17 20:59 11/23/17 08:54 750 MG Metoprolol Tartrate (Lopressor Tab) 25 mg BID PO 11/16/17 21:00 12/16/17 20:59 11/23/17 08:56 25 MG Simvastatin (Zocor Tab) 20 mg QPM PO 11/16/17 21:00 12/16/17 20:59 11/22/17 20:45 20 MG Zolpidem Tartrate (Ambien Tab) 5 mg HS PRN PO 11/16/17 12:45 12/16/17 12:44 11/22/17 20:43 5 MG Amlodipine Besylate (Norvasc Tab) 10 mg QAM PO 11/17/17 09:00 12/17/17 08:59 11/23/17 08:59 10 MG Polyethylene (Miralax Powder Packet) 17 gm DAILY PRN PO 11/16/17 15:00 12/16/17 14:59 11/23/17 18:05 17 GM Ferrous Sulfate (Feosol Tab) 325 mg TIDM PO 11/16/17 17:45 12/16/17 17:44 11/23/17 18:05 325 MG Daptomycin 300 mg/ Syringe 6 ml @ 3 mls/min Q48H IV 11/18/17 16:00 12/30/17 15:59 11/22/17 16:21 3 MLS/MIN Citalopram Hydrobromide (celeXA TAB) 20 mg DAILY@1330 PO 11/18/17 13:30 12/18/17 13:29 11/23/17 13:19 20 MG Calcium/Vitamin D (Caltrate Plus Tab) 1 tab BID@0900,1330 PO 11/18/17 09:00 12/18/17 08:59 11/23/17 13:20 1 TAB Magnesium Hydroxide (Milk Of Magnesia Susp) 30 ml Q6H PRN PO 11/18/17 14:45 12/18/17 14:44 11/21/17 09:10 30 ML Docusate Sodium (coLACE CAP) 100 mg BID PO 11/18/17 21:00 12/18/17 20:59 11/23/17 08:49 100 MG Al Hydrox/Mg Hydrox/Simethicone (Maalox Max Susp) 15 ml Q4H PRN PO 11/18/17 14:45 12/18/17 14:44 Multivitamins (Multivitamin Tab) 1 tab QAM PO 11/19/17 09:00 12/19/17 08:59 11/23/17 08:57 1 TAB Insulin Aspart (novoLOG ASPART) SLIDING SCALE If C... ACHS SC 11/19/17 08:00 12/19/17 07:59 11/23/17 18:13 2 UNITS Acetaminophen (Tylenol Tab) tylenol 325mg tab 1-2 ... Q4H PRN PO 11/19/17 15:30 12/16/17 11:44 Bisacodyl (Dulcolax Supp) 10 mg DAILY PRN [place] 11/21/17 10:00 12/21/17 09:59 Folic Acid (Folvite Tab) 1 mg QAM PO 11/22/17 09:00 12/22/17 08:59 11/23/17 08:50 1 MG Enteral Nutritional Formula (Boost Glucose Control) 1 can BID PO 11/21/17 21:00 12/21/17 20:59 11/23/17 09:37 1 CAN Pantoprazole Sodium 40 mg/ Syringe 10 ml @ 5 mls/min Q12@0900,2100 IV 11/22/17 09:00 12/22/17 08:59 11/23/17 09:55 5 MLS/MIN Clonidine HCl (Catapres Tab) 0.1 mg Q6H PRN PO 11/21/17 19:15 12/21/17 19:14 Aspirin (Ecotrin Tab) 81 mg BID PO 11/23/17 09:00 12/23/17 08:59 11/23/17 09:38 81 MG Ertapenem 1 gm/ Sodium Chloride 50 ml @ 120 mls/hr Q24H IV 11/23/17 12:00 01/04/18 11:59 11/23/17 12:08 120 MLS/HR
[2017-11-23] MEDS: CLONIDINE HCL 0.1 MG TAB PO SCH (20:47)
[2017-11-23] MEDS: SIMVASTATIN 20 MG TAB PO SCH (20:48)
[2017-11-23] MEDS: ZOLPIDEM TARTRATE 5 MG TAB PO PRN (20:49)
[2017-11-23 23:18] VITALS: BP 145/64; PULSE 59; TEMP 36.3; O2SAT 92
[2017-11-24 07:23] VITALS: BP 158/62; PULSE 69; TEMP 36.8; O2SAT 92
[2017-11-24] MEDS: PANTOprazole INJ 40 MG in SYRINGE 0 ML IV SCH (08:53)
[2017-11-24] MEDS: FERROUS SULFATE 325 MG TAB PO SCH ×3 (08:54→18:29)
[2017-11-24] MEDS: METOPROLOL TARTRATE 25 MG TAB PO SCH ×2 (08:54→21:00)
[2017-11-24] MEDS: MULTIVITAMIN TAB PO SCH (08:54)
[2017-11-24] MEDS: CLONIDINE HCL 0.1 MG TAB PO SCH ×2 (08:54→21:07)
[2017-11-24] MEDS: AMLODIPINE BESYLATE 5 MG TAB PO SCH (08:55)
[2017-11-24] MEDS: CYANOCOBALAMIN 100 MCG TAB (VIT B-12) PO SCH (08:55)
[2017-11-24] MEDS: ASPIRIN 81 MG ECTAB PO SCH (08:55)
[2017-11-24] MEDS: CALCIUM 600MG + VIT D 400 IU TAB PO SCH ×2 (08:55→13:52)
[2017-11-24] MEDS: CHOLECALCIFEROL 1000 INTER.UNIT TAB PO SCH (08:55)
[2017-11-24] MEDS: DOCUSATE SODIUM 100 MG CAP PO SCH (08:56)
[2017-11-24] MEDS: LEVETIRACETAM 500 MG TAB PO SCH ×2 (08:56→21:06)
[2017-11-24] MEDS: MAGNESIUM HYDROXIDE SUSP 30 ML UDC PO PRN (09:03)
[2017-11-24] MEDS: BOOST GLUCOSE CONTROL PO SCH ×2 (09:03→21:00)
[2017-11-24] MEDS: INSULIN ASPART 100 UNITS/ML 3 ML PEN SC SCH ×4 (09:22→21:10)
[2017-11-24] MEDS: INSULIN GLARGINE SOLOSTAR 100 UNITS/ML 3 ML PEN SC SCH ×2 (09:23→21:11)
--- NOTE | 2017-11-24 09:33 | Orthopedic Progress Note ---
Orthopedic Progress Note Date of Service Nov 24, 2017. Subjective Additional Notes: Postop day 6. Reports hip feeling well. No complaints. Objective calves soft nontender, N/V intact, capillary refill less than 2 sec., dressing C /D/I, toes mobile Wound VAC dressing in place (placed yesterday), c/d/i. Small amount of serosanguinous drainage in VAC canister, no purulent drainage. Skin surrounding Wound VAC dressing with no erythema, swelling, induration, or tenderness. Date Time Temp Pulse Resp B/P (MAP) Pulse Ox O2 Delivery O2 Flow Rate FiO2 11/24/17 07:23 36.8 69 18 158/62 (94) 92 Room Air 11/24/17 00:30 Room Air 11/23/17 23:18 36.3 59 15 145/64 (91) 92 Room Air 11/23/17 20:30 62 161/66 (97) 94 Room Air 11/23/17 16:00 Room Air 11/23/17 15:20 36.3 63 16 154/71 (98) 93 Room Air 11/23/17 09:45 92 Room Air Assessment & Plan Assessment: POD#5 SP I&D RIGHT HIP, DEBRIDEMENT OF ULCER AND APPLICATION OF WOUND VAC. Plan: DEEP CULTURES SHOWING MULTIPLE ORGANISMS. SUPERFICIAL WOUND GROWING CORYNEBACTERIM. CONTINUE DAPTOMYCIN AND ERTAPENEM. APPRECIATE INFX DZ INPUT PAIN MANAGEMENT CONTINUE PER WOUND CARE TREATMENT. NO FURTHER DEEP WASHOUTS PLANNED AT THIS TIME. MEDICAL MANAGENT DC PLANNING- PATIENT REQUESTING REFERRAL TO [facility]. PLAN FOR [facility] WHEN DECISION FOR FURTHER WOUND CARE FINALIZED PICC LINE PLACED Will sign off. Call with questions. Followup with Dr. Luu. I am covering Orthopedic Surgery call for Dr. Murillo, who is unavailable. Sae Baird MD
[2017-11-24] MEDS ORDERED: DOCUSATE SODIUM/SENNA 50/8.6MG TAB PO STA (11:10)
--- NOTE | 2017-11-24 11:14 | Progress Note ---
Medicine Progress Note Date & Time of Visit: Nov 24, 2017 at 11:08. 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 noted whitish discharge no chest pain, dyspnea right hip pain well controlled appetite fair no other symptoms Objective Last 8 Hrs Date Time Temp Pulse Resp B/P (MAP) Pulse Ox O2 Delivery O2 Flow Rate FiO2 11/24/17 08:00 Room Air 11/24/17 07:23 36.8 69 18 158/62 (94) 92 Room Air Physical Exam: General- oriented x3, not in distress, speaks in sentences with no effort Neck- no JVD Lungs- clear BS bilaterally, no rales/wheezes Heart- regular rhythm; no murmur, normal rate Abdomen- normal bowel sounds, soft, nontender Extremities- no pretibial edema, no calf tenderness; peripheral pulses intact Right Hip: dressing in place, no bleeding, discharge, wound vac in place with serous drainage Genitals- (+) ~1-2cm ulcer on the right labia, no bleeding/discharge noted Neuro- alert, oriented x 3; no gross focal deficits Skin- warm & dry Laboratory Results: Last 24 Hours Test 11/23/17 11:56 11/23/17 17:05 11/23/17 20:36 11/24/17 10:45 Bedside Glucose 140 mg/dl 140 mg/dl 175 mg/dl Assessment & Plan This is an 87yo F with a PMH of R hip fracture s/p hip replacement in February 2017, DM II, HTN, CKD III, HLD, 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 R Hip Abscess H/o R hip replacement in February 2017 following with [facility] wound care x [address] is suspicious for abscess Right hip seroma with possible abscess, infected total hip.infected full thickness decubitus ulcer right buttock,displaced greater trrochanter fracture and abductor tear s/p fall,s/p radha for displaced femoral neck fracture as per ortho 2.4.18: s/p I&D with wound vac and drains placement I&D Cultures (+) Peptostreptococcus, Acinetobacter, Gram negative bacilli Ertapenem added to Daptomycin ID, Ortho, Wound Care on board RIGHT LABIAL ULCER - has history of vaginal lesion/possible vulvar neoplasm ff up with [facility] in Jul 2017 Not biopsied but presumed to be malignant Excision not recommended 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 of chronic disease vs post operative hb 7.6 received 3 units PRBC Hg improved to 10 - FOBT (+) Fe and Folate low, will replace - Protonix IV BID GI consulted - continue Protonix 40mg BID no plans for EGD resumed ASA -- HG stable MARIELA on CKD III Cr elevated to 1.46 (~1.1 baseline) resolved given IV fluids HTN: on metoprolol, amlodipine will monitor added Clonidine monitor DM II: A1c of 7.0 in February 2017 holding home meds on basal bolus regimen Generalized seizure disorder: Stable on home dose keppra Depression: on celexa Chronic dyspnea on exertion: evaluated during previous admission in February 13 deconditioning PT/OT eval Presence of mild grade 1 diastolic dysfunction on echo EKG unremarkable f/u chest xra pa/lateral view-unremarkable HLD: on statin H/o CVA: Stable, no residual deficit ASA resumed DVT Ppx: SCDs ASA resumed Heparin, discussed with Dr. Baird Code status: DNR per admission PCP: [facility] Dispo: pt/ot plan for rehab social service for d/c planning Current Inpatient Medications: Current Inpatient Medications Medications (Trade) Dose Ordered Sig/Zaina Route Start Time Stop Time Status Last Admin Dose Admin Ondansetron HCl (Zofran Inj) 4 mg Q6H PRN IV 11/16/17 11:45 12/16/17 11:44 Sodium Chloride 1,000 ml @ 50 mls/hr Q20H IV 11/16/17 15:00 12/16/17 14:59 11/23/17 18:30 50 MLS/HR Insulin Glargine (Lantus Solostar Pen) 6 units Q12 SC 11/16/17 21:00 12/16/17 20:59 11/24/17 09:23 6 UNITS Glucose (Glucose 40% Gel) 15-30 GRAMS 15 GRAMS... UD PRN PO 11/16/17 12:30 12/16/17 12:29 Glucose (Glucose Chew Tab) 4-8 Tablets 4 Tabl... UD PRN PO 11/16/17 12:30 12/16/17 12:29 Dextrose (Dextrose 50% 50ML Syringe) 25-50ML OF 50% DW IV FOR... UD PRN IV 11/16/17 12:30 12/16/17 12:29 Glucagon (Glucagon Inj) 1 mg UD PRN SQ 11/16/17 12:30 12/16/17 12:29 Cholecalciferol (Vitamin D Tab) 1,000 inter.unit DAILY PO 11/17/17 09:00 12/17/17 08:59 11/24/17 08:55 1,000 INTER.UNIT Cyanocobalamin (Vitamin B-12 Tab) 100 mcg DAILY PO 11/17/17 09:00 12/17/17 08:59 11/24/17 08:55 100 MCG Levetiracetam (Keppra Tab) 750 mg BID PO 11/16/17 21:00 12/16/17 20:59 11/24/17 08:56 750 MG Metoprolol Tartrate (Lopressor Tab) 25 mg BID PO 11/16/17 21:00 12/16/17 20:59 11/24/17 08:54 25 MG Simvastatin (Zocor Tab) 20 mg QPM PO 11/16/17 21:00 12/16/17 20:59 11/23/17 20:48 20 MG Zolpidem Tartrate (Ambien Tab) 5 mg HS PRN PO 11/16/17 12:45 12/16/17 12:44 11/23/17 20:49 5 MG Amlodipine Besylate (Norvasc Tab) 10 mg QAM PO 11/17/17 09:00 12/17/17 08:59 11/24/17 08:55 10 MG Polyethylene (Miralax Powder Packet) 17 gm DAILY PRN PO 11/16/17 15:00 12/16/17 14:59 11/23/17 18:05 17 GM Ferrous Sulfate (Feosol Tab) 325 mg TIDM PO 11/16/17 17:45 12/16/17 17:44 11/24/17 08:54 325 MG Daptomycin 300 mg/ Syringe 6 ml @ 3 mls/min Q48H IV 11/18/17 16:00 12/30/17 15:59 11/22/17 16:21 3 MLS/MIN Citalopram Hydrobromide (celeXA TAB) 20 mg DAILY@1330 PO 11/18/17 13:30 12/18/17 13:29 11/23/17 13:19 20 MG Calcium/Vitamin D (Caltrate Plus Tab) 1 tab BID@0900,1330 PO 11/18/17 09:00 12/18/17 08:59 11/24/17 08:55 1 TAB Magnesium Hydroxide (Milk Of Magnesia Susp) 30 ml Q6H PRN PO 11/18/17 14:45 12/18/17 14:44 11/24/17 09:03 30 ML Al Hydrox/Mg Hydrox/Simethicone (Maalox Max Susp) 15 ml Q4H PRN PO 11/18/17 14:45 12/18/17 14:44 Multivitamins (Multivitamin Tab) 1 tab QAM PO 11/19/17 09:00 12/19/17 08:59 11/24/17 08:54 1 TAB Insulin Aspart (novoLOG ASPART) SLIDING SCALE If C... ACHS SC 11/19/17 08:00 12/19/17 07:59 11/24/17 09:22 3 UNITS Acetaminophen (Tylenol Tab) tylenol 325mg tab 1-2 ... Q4H PRN PO 11/19/17 15:30 12/16/17 11:44 Bisacodyl (Dulcolax Supp) 10 mg DAILY PRN [place] 11/21/17 10:00 12/21/17 09:59 Folic Acid (Folvite Tab) 1 mg QAM PO 11/22/17 09:00 12/22/17 08:59 11/24/17 08:56 1 MG Enteral Nutritional Formula (Boost Glucose Control) 1 can BID PO 11/21/17 21:00 12/21/17 20:59 11/24/17 09:03 1 CAN Pantoprazole Sodium 40 mg/ Syringe 10 ml @ 5 mls/min Q12@0900,2100 IV 11/22/17 09:00 12/22/17 08:59 11/24/17 08:53 5 MLS/MIN Clonidine HCl (Catapres Tab) 0.1 mg Q6H PRN PO 11/21/17 19:15 12/21/17 19:14 Aspirin (Ecotrin Tab) 81 mg BID PO 11/23/17 09:00 12/23/17 08:59 11/24/17 08:55 81 MG Ertapenem 1 gm/ Sodium Chloride 50 ml @ 120 mls/hr Q24H IV 11/23/17 12:00 01/04/18 11:59 11/23/17 12:08 120 MLS/HR Clonidine HCl (Catapres Tab) 0.1 mg BID PO 11/23/17 21:00 12/23/17 20:59 11/24/17 08:54 0.1 MG Senna/Docusate Sodium (Senokot S Tab) 1 tab QAM PO 11/25/17 09:00 12/25/17 08:59 UNV Senna/Docusate Sodium (Senokot S Tab) 1 tab NOW ONCE PO 11/24/17 11:00 11/24/17 11:01 UNV
[2017-11-24 11:19] LABS: BASO % 0.1 %; BASO ABS # 0.03 K/uL (0-0.2); EOS % 1.6 %; EOS ABS # 0.37 K/uL (0-0.5); HEMATOCRIT 28.3 % (37-47); HEMOGLOBIN 9.5 g/dL (12.0-16.0); IG# 0.13 K/uL (0.00-0.02); LYMPH % 8.1 %; MEAN CORPUSCULAR HEMOGLOBIN 29.9 pg (25-34); MEAN CORPUSCULAR HGB CONC 33.6 g/dl (32-36); MONO % 5.3 %; MONO ABS # 1.24 K/uL (0.11-0.59); NEUT % 84.3 %; NEUT ABS # 19.78 K/uL (1.4-6.5); PLATELET COUNT 366 K/uL (130-400); RED CELL DISTRIBUTION WIDTH CV 14.8 % (11.5-14.5); RED CELL DISTRIBUTION WIDTH SD 47.4 fL (36.4-46.3); WHITE BLOOD COUNT 23.45 K/uL (4.8-10.8)
[2017-11-24 11:48] LABS: CREATININE 0.73 mg/dl (0.60-1.20); POTASSIUM 3.8 mmol/L (3.5-5.1)
[2017-11-24] MEDS: HEPARIN SOD 5000 UNIT/0.5 ML CARP SQ SCH ×2 (12:19→21:11)
[2017-11-24] MEDS: SODIUM CHLORIDE 0.9% 1000ML 1,000 ML IV SCH (13:52)
[2017-11-24] MEDS: CITALOPRAM 20 MG TAB PO SCH (13:53)
--- NOTE | 2017-11-24 14:32 | Medical Consult ---
Consultation Date of Consultation: Nov 24, 2017. Attending Physician: Andrew Tierney MD Reason for Consultation: Vulvar lesion History of Present Illness Patient is an 87 y/o female who underwent extensive surgery including debridement and exchange of right hip replacement along with communicating decubitus ulcer debridement. She is POD # 6 and is currently on antibiotics and recovering from her surgery. She has been having vaginal/vulvar burning and itching. Nurse this morning noted clear fluid from the vagina as well. She has suspected vulvar cancer but not clearly diagnosed as biopsy was not attempted due to concern for bleeding. She was seen by [facility] BUSINESS INTEGRATION MANAGER in July 2017 for a vulvar lesion at which time surgery was not an option due to her age/ comorbidities and having to go to [place] to see family dentist/onc which she declined. After discussing this further she states she has had this lesion for about a year and has progressively become more irritating and larger. She is declining any further workup for this as she would decline to go to [place] to see family dentist/ onc anyway. Past Medical/Surgical History Medical Problems: (1) Abscess of right hip Status: Acute (2) Altered mental status Status: Acute (3) Bradycardia Status: Acute (4) Cellulitis of right hip Status: Acute (5) Expressive aphasia Status: Acute (6) Fall Status: Acute (7) Possible urinary tract infection Status: Acute (8) Receptive aphasia Status: Acute (9) Skin tear of right hand without complication Status: Acute Family History FH: lung cancer BROTHER FH: stroke FATHER Oral cancer MOTHER Social History Smoking Status: Never Smoker Smokeless Tobacco Use: No Drug Use: none Marital Status: Housing Status: lives with family Occupation Status: retired Allergies Coded Allergies: Amoxicillin (Verified Allergy, Severe, CVA SYMPTOMS, 11/16/17) Penicillins (Unverified Allergy, Unknown, POSS CX OF CVA, 11/16/17) Risedronate (Unverified Allergy, Unknown, UNKNOWN, 11/16/17) Diphenhydramine (Unverified Adverse Reaction, Unknown, N&V, 11/16/17) Prednisone (Unverified Adverse Reaction, Unknown, HIGH BS, 11/16/17) Current Inpatient Medications Current Inpatient Medications Medications (Trade) Dose Ordered Sig/Zaina Route Start Time Stop Time Status Last Admin Dose Admin Ondansetron HCl (Zofran Inj) 4 mg Q6H PRN IV 11/16/17 11:45 12/16/17 11:44 Sodium Chloride 1,000 ml @ 50 mls/hr Q20H IV 11/16/17 15:00 12/16/17 14:59 11/23/17 18:30 50 MLS/HR Insulin Glargine (Lantus Solostar Pen) 6 units Q12 SC 11/16/17 21:00 12/16/17 20:59 11/24/17 09:23 6 UNITS Glucose (Glucose 40% Gel) 15-30 GRAMS 15 GRAMS... UD PRN PO 11/16/17 12:30 12/16/17 12:29 Glucose (Glucose Chew Tab) 4-8 Tablets 4 Tabl... UD PRN PO 11/16/17 12:30 12/16/17 12:29 Dextrose (Dextrose 50% 50ML Syringe) 25-50ML OF 50% DW IV FOR... UD PRN IV 11/16/17 12:30 12/16/17 12:29 Glucagon (Glucagon Inj) 1 mg UD PRN SQ 11/16/17 12:30 12/16/17 12:29 Cholecalciferol (Vitamin D Tab) 1,000 inter.unit DAILY PO 11/17/17 09:00 12/17/17 08:59 11/24/17 08:55 1,000 INTER.UNIT Cyanocobalamin (Vitamin B-12 Tab) 100 mcg DAILY PO 11/17/17 09:00 12/17/17 08:59 11/24/17 08:55 100 MCG Levetiracetam (Keppra Tab) 750 mg BID PO 11/16/17 21:00 12/16/17 20:59 11/24/17 08:56 750 MG Metoprolol Tartrate (Lopressor Tab) 25 mg BID PO 11/16/17 21:00 12/16/17 20:59 11/24/17 08:54 25 MG Simvastatin (Zocor Tab) 20 mg QPM PO 11/16/17 21:00 12/16/17 20:59 11/23/17 20:48 20 MG Zolpidem Tartrate (Ambien Tab) 5 mg HS PRN PO 11/16/17 12:45 12/16/17 12:44 11/23/17 20:49 5 MG Amlodipine Besylate (Norvasc Tab) 10 mg QAM PO 11/17/17 09:00 12/17/17 08:59 11/24/17 08:55 10 MG Polyethylene (Miralax Powder Packet) 17 gm DAILY PRN PO 11/16/17 15:00 12/16/17 14:59 11/23/17 18:05 17 GM Ferrous Sulfate (Feosol Tab) 325 mg TIDM PO 11/16/17 17:45 12/16/17 17:44 11/24/17 12:15 325 MG Citalopram Hydrobromide (celeXA TAB) 20 mg DAILY@1330 PO 11/18/17 13:30 12/18/17 13:29 11/23/17 13:19 20 MG Calcium/Vitamin D (Caltrate Plus Tab) 1 tab BID@0900,1330 PO 11/18/17 09:00 12/18/17 08:59 11/24/17 08:55 1 TAB Magnesium Hydroxide (Milk Of Magnesia Susp) 30 ml Q6H PRN PO 11/18/17 14:45 12/18/17 14:44 11/24/17 09:03 30 ML Al Hydrox/Mg Hydrox/Simethicone (Maalox Max Susp) 15 ml Q4H PRN PO 11/18/17 14:45 12/18/17 14:44 Multivitamins (Multivitamin Tab) 1 tab QAM PO 11/19/17 09:00 12/19/17 08:59 11/24/17 08:54 1 TAB Insulin Aspart (novoLOG ASPART) SLIDING SCALE If C... ACHS SC 11/19/17 08:00 12/19/17 07:59 11/24/17 09:22 3 UNITS Acetaminophen (Tylenol Tab) tylenol 325mg tab 1-2 ... Q4H PRN PO 11/19/17 15:30 12/16/17 11:44 Bisacodyl (Dulcolax Supp) 10 mg DAILY PRN [place] 11/21/17 10:00 12/21/17 09:59 11/24/17 11:20 10 MG Folic Acid (Folvite Tab) 1 mg QAM PO 11/22/17 09:00 12/22/17 08:59 11/24/17 08:56 1 MG Enteral Nutritional Formula (Boost Glucose Control) 1 can BID PO 11/21/17 21:00 12/21/17 20:59 11/24/17 09:03 1 CAN Clonidine HCl (Catapres Tab) 0.1 mg Q6H PRN PO 11/21/17 19:15 12/21/17 19:14 Clonidine HCl (Catapres Tab) 0.1 mg BID PO 11/23/17 21:00 12/23/17 20:59 11/24/17 08:54 0.1 MG Senna/Docusate Sodium (Senokot S Tab) 1 tab QAM PO 11/25/17 09:00 12/25/17 08:59 Aspirin (Ecotrin Tab) 81 mg DAILY PO 11/25/17 09:00 12/23/17 08:59 Heparin Sodium (Porcine) (Heparin Sq 5000 Unit/0.5ml) 5,000 unit Q12H SQ 11/24/17 11:15 12/24/17 11:14 11/24/17 12:19 5,000 UNIT Pantoprazole Sodium (Protonix Tab) 40 mg BID PO 11/24/17 21:00 12/24/17 20:59 Review of Systems Constitutional: No fever, No chills, No sweats, No weight loss, No weakness, No fatigue, No problem reported Respiratory: No cough, No sputum, No wheezing, No shortness of breath, No dyspnea on exertion, No dyspnea at rest, No hemoptysis, No problem reported Cardiovascular: No chest pain, No orthopnea, No PND, No edema, No claudication , No palpitations, No problem reported Abdomen: No pain, No nausea, No vomiting, No diarrhea, No constipation, No GI bleeding, No problem reported Genitourinary - Female: + vaginal discharge, + vaginal itching, + problem reported (vulvar burning) Neurologic: No memory loss, No paralysis, No weakness, No numbness/tingling, No vertigo, No balance problems, No problem reported Physical Exam Date Time Temp Pulse Resp B/P (MAP) Pulse Ox O2 Delivery O2 Flow Rate FiO2 11/24/17 08:00 Room Air 11/24/17 07:23 36.8 69 18 158/62 (94) 92 Room Air 11/24/17 00:30 Room Air 11/23/17 23:18 36.3 59 15 145/64 (91) 92 Room Air 11/23/17 20:30 62 161/66 (97) 94 Room Air 11/23/17 16:00 Room Air 11/23/17 15:20 36.3 63 16 154/71 (98) 93 Room Air General Appearance: WD/WN, no apparent distress Respiratory/Chest: chest non-tender, lungs clear Cardiovascular: regular rate, rhythm Abdomen/GI: normal bowel sounds, non tender, soft Genitourinary - Female: + pertinent finding (4 x 4 cm right labial ulceration, suspect malignancy) Extremities/Musculoskelatal: no calf tenderness, normal range of motion Neurologic/Psych: alert, oriented x 3 Skin: normal color, warm/dry, no rash Laboratory Results Last 24 Hours Test 11/23/17 17:05 11/23/17 20:36 11/24/17 08:08 11/24/17 11:06 Bedside Glucose 140 mg/dl 175 mg/dl 105 mg/dl White Blood Count 23.45 K/uL Red Blood Count 3.18 M/uL Hemoglobin 9.5 g/dL Hematocrit 28.3 % Mean Corpuscular Volume 89.0 fL Mean Corpuscular Hemoglobin 29.9 pg Mean Corpuscular Hemoglobin Concent 33.6 g/dl Platelet Count 366 K/uL Mean Platelet Volume 8.0 fL Neutrophils (%) (Auto) 84.3 % Lymphocytes (%) (Auto) 8.1 % Monocytes (%) (Auto) 5.3 % Eosinophils (%) (Auto) 1.6 % Basophils (%) (Auto) 0.1 % Neutrophils # (Auto) 19.78 K/uL Lymphocytes # (Auto) 1.90 K/uL Monocytes # (Auto) 1.24 K/uL Eosinophils # (Auto) 0.37 K/uL Basophils # (Auto) 0.03 K/uL RDW Standard Deviation 47.4 fL RDW Coefficient of Variation 14.8 % Immature Granulocyte % (Auto) 0.6 % Immature Granulocyte # (Auto) 0.13 K/uL Sodium Level 134 mmol/L Potassium Level 3.8 mmol/L Chloride Level 102 mmol/L Carbon Dioxide Level 26 mmol/L Anion Gap 6.0 mmol/L Blood Urea Nitrogen 17 mg/dl Creatinine 0.73 mg/dl Est Creatinine Clear Calc Drug Dose 45.9 ml/min Estimated GFR () 85.2 Estimated GFR (Non- 73.5 BUN/Creatinine Ratio 22.5 Random Glucose 142 mg/dl Calcium Level 10.0 mg/dl Test 11/24/17 12:09 Bedside Glucose 165 mg/dl Assessment & Plan (1) Cellulitis of right hip Status: Acute (2) MARIELA (acute kidney injury) Status: Acute (3) Vulvar malignant neoplasm Status: Chronic Assessment & Plan: Patient examined. She has a right labial ulceration measuring approximately 4 x 4 cm concerning for vulvar malignancy. She has been seen for this in July 2017 by [facility] gynecology and at the time it was suspected she had vulvar malignancy. Biopsy of the lesion was not recommended due to concern for bleeding and oncologic treatment/surgery would not be a viable treatment due to her age and multiple comorbidities. At the time patient did not want to travel to [place] to see Outside Sales Manager/Onc as well. Today i discussed that i am concerned for vulvar malignancy as well. I offered her a vulvar biopsy in the outpatient setting as i do not recommend this now and also a Outside Sales Manager/ Onc referral. Patient again refuses to go to [place] and therefore biopsy would not add any benefit and may cause excessive bleeding and infection. Patient is ok with not doing anything at this point and will concentrate on recovering from her surgery. If she changes her mind she states she will call our office and make an appointment. (4) Abscess of right hip Status: Acute (5) History of total hip replacement Status: Chronic
[2017-11-24 15:28] VITALS: BP 153/70; PULSE 57; TEMP 36.3; O2SAT 91
[2017-11-24 21:03] VITALS: BP 163/80; PULSE 55; O2SAT 94
[2017-11-24] MEDS: ZOLPIDEM TARTRATE 5 MG TAB PO PRN (21:06)
[2017-11-24] MEDS: SIMVASTATIN 20 MG TAB PO SCH (21:07)
[2017-11-24] MEDS: PANTOprazole SOD 40 MG TAB PO SCH (21:07)
[2017-11-24 22:55] VITALS: BP 154/69; PULSE 53; TEMP 36.6; O2SAT 92
[2017-11-25 07:20] VITALS: BP 164/53; PULSE 68; TEMP 37.1; O2SAT 91
[2017-11-25 08:00] VITALS: O2SAT 91
[2017-11-25] MEDS: FERROUS SULFATE 325 MG TAB PO SCH ×3 (08:27→18:13)
[2017-11-25] MEDS: INSULIN GLARGINE SOLOSTAR 100 UNITS/ML 3 ML PEN SC SCH ×2 (08:38→20:34)
[2017-11-25] MEDS: INSULIN ASPART 100 UNITS/ML 3 ML PEN SC SCH ×4 (08:38→20:33)
[2017-11-25] MEDS: BOOST GLUCOSE CONTROL PO SCH ×2 (08:43→20:34)
[2017-11-25] MEDS: CLONIDINE HCL 0.1 MG TAB PO SCH ×2 (08:43→20:34)
[2017-11-25] MEDS: METOPROLOL TARTRATE 25 MG TAB PO SCH ×2 (08:44→20:34)
[2017-11-25] MEDS: LEVETIRACETAM 500 MG TAB PO SCH ×2 (08:44→20:34)
[2017-11-25] MEDS: ASPIRIN 81 MG ECTAB PO SCH (08:46)
[2017-11-25] MEDS: PANTOprazole SOD 40 MG TAB PO SCH ×2 (08:46→20:34)
[2017-11-25] MEDS: CHOLECALCIFEROL 1000 INTER.UNIT TAB PO SCH (10:00)
[2017-11-25] MEDS: AMLODIPINE BESYLATE 5 MG TAB PO SCH (10:00)
[2017-11-25] MEDS: DOCUSATE SODIUM/SENNA 50/8.6MG TAB PO SCH (10:01)
[2017-11-25] MEDS: MULTIVITAMIN TAB PO SCH (10:01)
[2017-11-25] MEDS: CYANOCOBALAMIN 100 MCG TAB (VIT B-12) PO SCH (10:01)
[2017-11-25] MEDS: CALCIUM 600MG + VIT D 400 IU TAB PO SCH ×2 (10:01→13:28)
[2017-11-25] MEDS: SODIUM CHLORIDE 0.9% 1000ML 1,000 ML IV SCH (10:02)
[2017-11-25] MEDS: HEPARIN SOD 5000 UNIT/0.5 ML CARP SQ SCH ×2 (11:28→20:34)
[2017-11-25] MEDS: CITALOPRAM 20 MG TAB PO SCH (13:28)
[2017-11-25 15:13] VITALS: BP 145/66; PULSE 54; TEMP 36.6; O2SAT 93
--- NOTE | 2017-11-25 18:39 | Progress Note ---
Medicine Progress Note Date & Time of Visit: Nov 25, 2017 at 18:18. Subjective resting in bed, comfortable pain under good control just feels weak, but alert, conversant denies other symptoms Objective Last 8 Hrs Date Time Temp Pulse Resp B/P (MAP) Pulse Ox O2 Delivery O2 Flow Rate FiO2 11/25/17 15:40 Room Air 11/25/17 15:13 36.6 54 16 145/66 (92) 93 Room Air Physical Exam: General- oriented x3, not in distress, speaks in sentences with no effort Neck- no JVD Lungs- clear breath sounds bilaterally Heart- regular rhythm; no murmur, normal rate Abdomen- normal bowel sounds, soft, nontender Extremities- no pretibial edema, no calf tenderness; peripheral pulses intact Right Hip: dressing in place, no bleeding, discharge, wound vac in place with serous drainage Genitals- (+) ~1-2cm ulcer on the right labia, no bleeding/discharge noted Neuro- alert, oriented x 3; no gross focal deficits Skin- warm & dry Laboratory Results: Last 24 Hours Test 11/24/17 20:54 11/25/17 08:08 11/25/17 12:23 Bedside Glucose 176 mg/dl 96 mg/dl 168 mg/dl Assessment & Plan This is an 87yo F with a PMH of R hip fracture s/p hip replacement in February 2017, DM II, HTN, CKD III, HLD, 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 R Hip Abscess H/o R hip replacement in February 2017 following with [place] wound care x [address] is suspicious for abscess Right hip seroma with possible abscess, infected total hip.infected full thickness decubitus ulcer right buttock,displaced greater trrochanter fracture and abductor tear s/p fall,s/p radha for displaced femoral neck fracture as per ortho 2.4.18: s/p I&D with wound vac and drains placement I&D Cultures (+) Peptostreptococcus, Acinetobacter, Prevotella Ertapenem + Daptomycin ID, Ortho, Wound Care on board RIGHT LABIAL ULCER - has history of vaginal lesion/possible vulvar neoplasm ff up with Karlee in Jul 2017 Not biopsied but presumed to be malignant Excision not recommended Referral to software configuration analyst onc in [place] offered but patient not interested - 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 of chronic disease vs post operative hb 7.6 received 3 units PRBC Hg improved to 10 - FOBT (+) Fe and Folate low, will replace - Protonix IV BID GI consulted - continue Protonix 40mg BID no plans for EGD resumed ASA -- HG stable MARIELA on CKD III Cr elevated to 1.46 (~1.1 baseline) resolved given IV fluids HTN: on metoprolol, amlodipine added Clonidine improving DM II: A1c of 7.0 in February 2017 holding home meds on basal bolus regimen Generalized seizure disorder: Stable on home dose keppra Depression: on celexa Chronic dyspnea on exertion: evaluated during previous admission in February 13 deconditioning PT/OT eval Presence of mild grade 1 diastolic dysfunction on echo EKG unremarkable f/u chest xra pa/lateral view-unremarkable HLD: on statin H/o CVA: Stable, no residual deficit ASA resumed DVT Ppx: SCDs ASA resumed Heparin, discussed with Dr. Baird Code status: DNR per admission PCP: Triston Dispo: pt/ot plan for rehab social service for d/c planning Current Inpatient Medications: Current Inpatient Medications Medications (Trade) Dose Ordered Sig/Zaina Route Start Time Stop Time Status Last Admin Dose Admin Ondansetron HCl (Zofran Inj) 4 mg Q6H PRN IV 11/16/17 11:45 12/16/17 11:44 Sodium Chloride 1,000 ml @ 50 mls/hr Q20H IV 11/16/17 15:00 12/16/17 14:59 11/25/17 10:02 50 MLS/HR Insulin Glargine (Lantus Solostar Pen) 6 units Q12 SC 11/16/17 21:00 12/16/17 20:59 11/25/17 08:38 6 UNITS Glucose (Glucose 40% Gel) 15-30 GRAMS 15 GRAMS... UD PRN PO 11/16/17 12:30 12/16/17 12:29 Glucose (Glucose Chew Tab) 4-8 Tablets 4 Tabl... UD PRN PO 11/16/17 12:30 12/16/17 12:29 Dextrose (Dextrose 50% 50ML Syringe) 25-50ML OF 50% DW IV FOR... UD PRN IV 11/16/17 12:30 12/16/17 12:29 Glucagon (Glucagon Inj) 1 mg UD PRN SQ 11/16/17 12:30 12/16/17 12:29 Cholecalciferol (Vitamin D Tab) 1,000 inter.unit DAILY PO 11/17/17 09:00 12/17/17 08:59 11/25/17 10:00 1,000 INTER.UNIT Cyanocobalamin (Vitamin B-12 Tab) 100 mcg DAILY PO 11/17/17 09:00 12/17/17 08:59 11/25/17 10:01 100 MCG Levetiracetam (Keppra Tab) 750 mg BID PO 11/16/17 21:00 12/16/17 20:59 11/25/17 08:44 750 MG Metoprolol Tartrate (Lopressor Tab) 25 mg BID PO 11/16/17 21:00 12/16/17 20:59 11/25/17 08:44 25 MG Simvastatin (Zocor Tab) 20 mg QPM PO 11/16/17 21:00 12/16/17 20:59 11/24/17 21:07 20 MG Zolpidem Tartrate (Ambien Tab) 5 mg HS PRN PO 11/16/17 12:45 12/16/17 12:44 11/24/17 21:06 5 MG Amlodipine Besylate (Norvasc Tab) 10 mg QAM PO 11/17/17 09:00 12/17/17 08:59 11/25/17 10:00 10 MG Polyethylene (Miralax Powder Packet) 17 gm DAILY PRN PO 11/16/17 15:00 12/16/17 14:59 11/23/17 18:05 17 GM Ferrous Sulfate (Feosol Tab) 325 mg TIDM PO 11/16/17 17:45 12/16/17 17:44 11/25/17 13:29 325 MG Citalopram Hydrobromide (celeXA TAB) 20 mg DAILY@1330 PO 11/18/17 13:30 12/18/17 13:29 11/25/17 13:28 20 MG Calcium/Vitamin D (Caltrate Plus Tab) 1 tab BID@0900,1330 PO 11/18/17 09:00 12/18/17 08:59 11/25/17 13:28 1 TAB Magnesium Hydroxide (Milk Of Magnesia Susp) 30 ml Q6H PRN PO 11/18/17 14:45 12/18/17 14:44 11/24/17 09:03 30 ML Al Hydrox/Mg Hydrox/Simethicone (Maalox Max Susp) 15 ml Q4H PRN PO 11/18/17 14:45 12/18/17 14:44 Multivitamins (Multivitamin Tab) 1 tab QAM PO 11/19/17 09:00 12/19/17 08:59 11/25/17 10:01 1 TAB Insulin Aspart (novoLOG ASPART) SLIDING SCALE If C... ACHS SC 11/19/17 08:00 12/19/17 07:59 11/25/17 13:33 1 UNITS Acetaminophen (Tylenol Tab) tylenol 325mg tab 1-2 ... Q4H PRN PO 11/19/17 15:30 12/16/17 11:44 Bisacodyl (Dulcolax Supp) 10 mg DAILY PRN [place] 11/21/17 10:00 12/21/17 09:59 11/24/17 11:20 10 MG Folic Acid (Folvite Tab) 1 mg QAM PO 11/22/17 09:00 12/22/17 08:59 11/25/17 10:00 1 MG Enteral Nutritional Formula (Boost Glucose Control) 1 can BID PO 11/21/17 21:00 12/21/17 20:59 11/25/17 08:43 1 CAN Clonidine HCl (Catapres Tab) 0.1 mg Q6H PRN PO 11/21/17 19:15 12/21/17 19:14 Clonidine HCl (Catapres Tab) 0.1 mg BID PO 11/23/17 21:00 12/23/17 20:59 11/25/17 08:43 0.1 MG Senna/Docusate Sodium (Senokot S Tab) 1 tab QAM PO 11/25/17 09:00 12/25/17 08:59 11/25/17 10:01 1 TAB Aspirin (Ecotrin Tab) 81 mg DAILY PO 11/25/17 09:00 12/23/17 08:59 11/25/17 08:46 81 MG Heparin Sodium (Porcine) (Heparin Sq 5000 Unit/0.5ml) 5,000 unit Q12H SQ 11/24/17 11:15 12/24/17 11:14 11/25/17 11:28 5,000 UNIT Pantoprazole Sodium (Protonix Tab) 40 mg BID PO 11/24/17 21:00 12/24/17 20:59 11/25/17 08:46 40 MG
[2017-11-25] MEDS: DAPTOmycin IV 300 MG in SYRINGE 0 ML IV SCH (19:34)
[2017-11-25] MEDS: ERTAPENEM IV 1,000 MG in SODIUM CHLORIDE 0.9% 50ML 50 ML IV SCH (19:34)
[2017-11-25] MEDS: ZOLPIDEM TARTRATE 5 MG TAB PO PRN (20:34)
[2017-11-25] MEDS: SIMVASTATIN 20 MG TAB PO SCH (20:34)
[2017-11-25 20:37] VITALS: BP 144/74; PULSE 61
[2017-11-25 23:14] VITALS: BP 148/75; PULSE 56; TEMP 36.5; O2SAT 92
[2017-11-26] MEDS: SODIUM CHLORIDE 0.9% 1000ML 1,000 ML IV SCH ×2 (04:07→23:25)
[2017-11-26 08:17] VITALS: BP 163/68; PULSE 60; TEMP 36.3; O2SAT 91
[2017-11-26 08:30] VITALS: O2SAT 91
[2017-11-26] MEDS: FERROUS SULFATE 325 MG TAB PO SCH ×3 (08:57→19:15)
[2017-11-26] MEDS: BOOST GLUCOSE CONTROL PO SCH ×2 (08:59→22:17)
[2017-11-26] MEDS: CALCIUM 600MG + VIT D 400 IU TAB PO SCH ×2 (09:00→13:13)
[2017-11-26] MEDS: CLONIDINE HCL 0.1 MG TAB PO SCH ×2 (09:02→22:18)
[2017-11-26] MEDS: ASPIRIN 81 MG ECTAB PO SCH (09:04)
[2017-11-26] MEDS: LEVETIRACETAM 500 MG TAB PO SCH ×2 (09:09→22:18)
[2017-11-26] MEDS: METOPROLOL TARTRATE 25 MG TAB PO SCH ×2 (09:12→22:19)
[2017-11-26] MEDS: MULTIVITAMIN TAB PO SCH (09:13)
[2017-11-26] MEDS: AMLODIPINE BESYLATE 5 MG TAB PO SCH (09:14)
[2017-11-26] MEDS: PANTOprazole SOD 40 MG TAB PO SCH ×2 (09:15→22:20)
[2017-11-26] MEDS: DOCUSATE SODIUM/SENNA 50/8.6MG TAB PO SCH (09:16)
[2017-11-26] MEDS: CYANOCOBALAMIN 100 MCG TAB (VIT B-12) PO SCH (09:17)
[2017-11-26] MEDS: CHOLECALCIFEROL 1000 INTER.UNIT TAB PO SCH (09:18)
[2017-11-26] MEDS: INSULIN ASPART 100 UNITS/ML 3 ML PEN SC SCH ×4 (09:37→21:00)
[2017-11-26] MEDS: INSULIN GLARGINE SOLOSTAR 100 UNITS/ML 3 ML PEN SC SCH ×2 (09:38→22:24)
[2017-11-26] MEDS: HEPARIN SOD 5000 UNIT/0.5 ML CARP SQ SCH ×2 (11:08→22:23)
[2017-11-26 12:08] VITALS: O2SAT 91
[2017-11-26] MEDS: CITALOPRAM 20 MG TAB PO SCH (13:14)
[2017-11-26 15:39] VITALS: BP 146/70; PULSE 52; TEMP 36.3; O2SAT 92
[2017-11-26] MEDS: ERTAPENEM IV 1,000 MG in SODIUM CHLORIDE 0.9% 50ML 50 ML IV SCH (19:20)
[2017-11-26 22:16] VITALS: BP 148/70; PULSE 62
[2017-11-26] MEDS: SIMVASTATIN 20 MG TAB PO SCH (22:20)
[2017-11-26] MEDS: ZOLPIDEM TARTRATE 5 MG TAB PO PRN (22:30)
[2017-11-26 23:07] VITALS: BP 129/72; PULSE 61; TEMP 36.5; O2SAT 93
--- NOTE | 2017-11-27 06:57 | Progress Note ---
Medicine Progress Note Date & Time of Visit: Nov 27, 2017 at 06:46. Subjective delayed entry date of service as noted above resting in bed, comfortable, alert, oriented reports left hip being sore denies dyspnea, chest pain, nausea feels weak no other symptoms Objective Last 8 Hrs Date Time Temp Pulse Resp B/P (MAP) Pulse Ox O2 Delivery O2 Flow Rate FiO2 11/26/17 23:25 Room Air 11/26/17 23:07 36.5 61 16 129/72 (91) 93 Room Air Physical Exam: General- oriented x3, not in distress, speaks in sentences with no effort Neck- no JVD Lungs- clear breath sounds bilaterally, no rales Heart- regular rhythm; no murmur, normal rate Abdomen- normal bowel sounds, soft, nontender Extremities- no pretibial edema, no calf tenderness; peripheral pulses intact Right Hip: dressing in place, no bleeding, discharge, wound vac in place with serous drainage- minimal Neuro- alert, oriented x 3; no gross focal deficits Skin- warm & dry Laboratory Results: Last 24 Hours Test 11/26/17 08:02 11/26/17 12:03 11/26/17 17:04 11/26/17 20:42 Bedside Glucose 105 mg/dl 168 mg/dl 142 mg/dl 139 mg/dl Assessment & Plan This is an 87yo F with a PMH of R hip fracture s/p hip replacement in February 2017, DM II, HTN, CKD III, HLD, 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 R Hip Abscess H/o R hip replacement in February 2017 following with [facility] wound care x [address]: Right hip seroma with possible abscess, infected total hip.infected full thickness decubitus ulcer right buttock,displaced greater trrochanter fracture and abductor tear s/p fall,s/p radha for displaced femoral neck fracture as per ortho 2.4.18: s/p I&D with wound vac and drains placement I&D Cultures (+) Peptostreptococcus, Acinetobacter, Prevotella Ertapenem + Daptomycin via PICC ID, Ortho, Wound Care on board- awaiting further recommendations, clearance for discharge RIGHT LABIAL ULCER - has history of vaginal lesion/possible vulvar neoplasm ff up with Karlee in Jul 2017 Not biopsied but presumed to be malignant Excision not recommended Referral to appeals board referee onc in [place] offered but patient not interested - 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 continue Protonix 40mg BID. monitor Hg no plans for EGD resumed ASA -- HG stable MARIELA on CKD III Cr elevated to 1.46 (~1.1 baseline) resolved given IV fluids HTN: on metoprolol, amlodipine added Clonidine improving DM II: A1c of 7.0 in February 2017 holding home meds on basal bolus regimen Generalized seizure disorder: Stable on home dose keppra Depression: on celexa Chronic dyspnea on exertion: evaluated during previous admission in February 13 deconditioning PT/OT eval Presence of mild grade 1 diastolic dysfunction on echo EKG unremarkable f/u chest xra pa/lateral view-unremarkable HLD: on statin H/o CVA: Stable, no residual deficit ASA resumed DVT Ppx: SCDs ASA resumed Heparin, discussed with Dr. Baird Code status: DNR per admission PCP: Triston Dispo: pt/ot plan for rehab social service for d/c planning Current Inpatient Medications: Current Inpatient Medications Medications (Trade) Dose Ordered Sig/Zaina Route Start Time Stop Time Status Last Admin Dose Admin Ondansetron HCl (Zofran Inj) 4 mg Q6H PRN IV 11/16/17 11:45 12/16/17 11:44 Sodium Chloride 1,000 ml @ 50 mls/hr Q20H IV 11/16/17 15:00 12/16/17 14:59 11/26/17 23:25 50 MLS/HR Insulin Glargine (Lantus Solostar Pen) 6 units Q12 SC 11/16/17 21:00 12/16/17 20:59 11/26/17 22:24 6 UNITS Glucose (Glucose 40% Gel) 15-30 GRAMS 15 GRAMS... UD PRN PO 11/16/17 12:30 12/16/17 12:29 Glucose (Glucose Chew Tab) 4-8 Tablets 4 Tabl... UD PRN PO 11/16/17 12:30 12/16/17 12:29 Dextrose (Dextrose 50% 50ML Syringe) 25-50ML OF 50% DW IV FOR... UD PRN IV 11/16/17 12:30 12/16/17 12:29 Glucagon (Glucagon Inj) 1 mg UD PRN SQ 11/16/17 12:30 12/16/17 12:29 Cholecalciferol (Vitamin D Tab) 1,000 inter.unit DAILY PO 11/17/17 09:00 12/17/17 08:59 11/26/17 09:18 1,000 INTER.UNIT Cyanocobalamin (Vitamin B-12 Tab) 100 mcg DAILY PO 11/17/17 09:00 12/17/17 08:59 11/26/17 09:17 100 MCG Levetiracetam (Keppra Tab) 750 mg BID PO 11/16/17 21:00 12/16/17 20:59 11/26/17 22:18 750 MG Metoprolol Tartrate (Lopressor Tab) 25 mg BID PO 11/16/17 21:00 12/16/17 20:59 11/26/17 22:19 25 MG Simvastatin (Zocor Tab) 20 mg QPM PO 11/16/17 21:00 12/16/17 20:59 11/26/17 22:20 20 MG Zolpidem Tartrate (Ambien Tab) 5 mg HS PRN PO 11/16/17 12:45 12/16/17 12:44 11/26/17 22:30 5 MG Amlodipine Besylate (Norvasc Tab) 10 mg QAM PO 11/17/17 09:00 12/17/17 08:59 11/26/17 09:14 10 MG Polyethylene (Miralax Powder Packet) 17 gm DAILY PRN PO 11/16/17 15:00 12/16/17 14:59 11/23/17 18:05 17 GM Ferrous Sulfate (Feosol Tab) 325 mg TIDM PO 11/16/17 17:45 12/16/17 17:44 11/26/17 19:15 325 MG Citalopram Hydrobromide (celeXA TAB) 20 mg DAILY@1330 PO 11/18/17 13:30 12/18/17 13:29 11/26/17 13:14 20 MG Calcium/Vitamin D (Caltrate Plus Tab) 1 tab BID@0900,1330 PO 11/18/17 09:00 12/18/17 08:59 11/26/17 13:13 1 TAB Magnesium Hydroxide (Milk Of Magnesia Susp) 30 ml Q6H PRN PO 11/18/17 14:45 12/18/17 14:44 11/24/17 09:03 30 ML Al Hydrox/Mg Hydrox/Simethicone (Maalox Max Susp) 15 ml Q4H PRN PO 11/18/17 14:45 12/18/17 14:44 Multivitamins (Multivitamin Tab) 1 tab QAM PO 11/19/17 09:00 12/19/17 08:59 11/26/17 09:13 1 TAB Insulin Aspart (novoLOG ASPART) SLIDING SCALE If C... ACHS SC 11/19/17 08:00 12/19/17 07:59 11/26/17 19:10 2 UNITS Acetaminophen (Tylenol Tab) tylenol 325mg tab 1-2 ... Q4H PRN PO 11/19/17 15:30 12/16/17 11:44 Bisacodyl (Dulcolax Supp) 10 mg DAILY PRN [place] 11/21/17 10:00 12/21/17 09:59 11/24/17 11:20 10 MG Folic Acid (Folvite Tab) 1 mg QAM PO 11/22/17 09:00 12/22/17 08:59 11/26/17 09:06 1 MG Enteral Nutritional Formula (Boost Glucose Control) 1 can BID PO 11/21/17 21:00 12/21/17 20:59 11/26/17 22:17 1 CAN Clonidine HCl (Catapres Tab) 0.1 mg Q6H PRN PO 11/21/17 19:15 12/21/17 19:14 Clonidine HCl (Catapres Tab) 0.1 mg BID PO 11/23/17 21:00 12/23/17 20:59 11/26/17 22:18 0.1 MG Senna/Docusate Sodium (Senokot S Tab) 1 tab QAM PO 11/25/17 09:00 12/25/17 08:59 11/26/17 09:16 1 TAB Aspirin (Ecotrin Tab) 81 mg DAILY PO 11/25/17 09:00 12/23/17 08:59 11/26/17 09:04 81 MG Heparin Sodium (Porcine) (Heparin Sq 5000 Unit/0.5ml) 5,000 unit Q12H SQ 11/24/17 11:15 12/24/17 11:14 11/26/17 22:23 5,000 UNIT Pantoprazole Sodium (Protonix Tab) 40 mg BID PO 11/24/17 21:00 12/24/17 20:59 11/26/17 22:20 40 MG Daptomycin 300 mg/ Syringe 6 ml @ 3 mls/min Q48H IV 11/25/17 18:30 01/04/18 18:29 11/25/17 19:34 3 MLS/MIN Ertapenem 1000 mg/ Sodium Chloride 60 ml @ 120 mls/hr Q24H IV 11/25/17 18:30 01/04/18 18:29 11/26/17 19:20 120 MLS/HR
[2017-11-27 07:37] VITALS: BP 179/64; PULSE 60; TEMP 36.7; O2SAT 91
[2017-11-27] MEDS: INSULIN ASPART 100 UNITS/ML 3 ML PEN SC SCH ×4 (08:00→21:00)
[2017-11-27] MEDS: BOOST GLUCOSE CONTROL PO SCH ×2 (09:00→21:21)
[2017-11-27] MEDS: CALCIUM 600MG + VIT D 400 IU TAB PO SCH ×2 (09:20→14:06)
[2017-11-27] MEDS: METOPROLOL TARTRATE 25 MG TAB PO SCH ×2 (09:21→21:13)
[2017-11-27] MEDS: PANTOprazole SOD 40 MG TAB PO SCH ×2 (09:21→21:13)
[2017-11-27] MEDS: CLONIDINE HCL 0.1 MG TAB PO SCH ×2 (09:25→21:13)
[2017-11-27] MEDS: FERROUS SULFATE 325 MG TAB PO SCH ×3 (09:25→18:14)
[2017-11-27] MEDS: AMLODIPINE BESYLATE 5 MG TAB PO SCH (09:26)
[2017-11-27] MEDS: CHOLECALCIFEROL 1000 INTER.UNIT TAB PO SCH (09:26)
[2017-11-27] MEDS: MULTIVITAMIN TAB PO SCH (09:26)
[2017-11-27] MEDS: ASPIRIN 81 MG ECTAB PO SCH (09:26)
[2017-11-27] MEDS: DOCUSATE SODIUM/SENNA 50/8.6MG TAB PO SCH (09:27)
[2017-11-27] MEDS: CYANOCOBALAMIN 100 MCG TAB (VIT B-12) PO SCH (09:27)
[2017-11-27] MEDS: LEVETIRACETAM 500 MG TAB PO SCH ×2 (09:27→21:13)
[2017-11-27] MEDS: INSULIN GLARGINE SOLOSTAR 100 UNITS/ML 3 ML PEN SC SCH ×2 (09:35→21:27)
--- NOTE | 2017-11-27 10:29 | Progress Note ---
Subjective Date of Service: Nov 27, 2017. Subjective The patient is out of bed to chair this morning and appears comfortable. She is tolerating antibiotics well. She does not have any fevers documented. Her white blood cell count is elevated 23 today. Her last VAC change was on Sunday. She is due for a VAC change. There is no plan for additional OR debridement. She is awaiting placement. Problem List Medical Problems: (1) Abscess of right hip Status: Acute (2) Altered mental status Status: Acute (3) Bradycardia Status: Acute (4) Cellulitis of right hip Status: Acute (5) Expressive aphasia Status: Acute (6) Fall Status: Acute (7) Possible urinary tract infection Status: Acute (8) Receptive aphasia Status: Acute (9) Skin tear of right hand without complication Status: Acute Objective Vital Signs Date Time Temp Pulse Resp B/P (MAP) Pulse Ox O2 Delivery O2 Flow Rate FiO2 11/27/17 07:37 36.7 60 16 179/64 (102) 91 Room Air 11/26/17 23:25 Room Air 11/26/17 23:07 36.5 61 16 129/72 (91) 93 Room Air 11/26/17 22:34 Room Air 11/26/17 22:16 62 148/70 (96) 11/26/17 16:00 Room Air 11/26/17 15:39 36.3 52 16 146/70 (95) 92 Room Air 11/26/17 12:08 91 Room Air Physical Exam General Appearance: WD/WN, no apparent distress Eyes: normal inspection Neck: supple Respiratory/Chest: no respiratory distress Skin: normal color Comments: VAC in place Laboratory Results Item Value Date Time Gram Stain - Final Complete 11/18/17 1110 Joint Fluid/Space (Synovial) Hip , Right Gram Stain - Final Complete 11/18/17 1100 Drainage-Deep Hip , Right Gram Stain - Final Complete 11/18/17 1055 Drainage-Deep Hip , Right Last 24 Hours Test 11/26/17 12:03 11/26/17 17:04 11/26/17 20:42 Bedside Glucose 168 mg/dl 142 mg/dl 139 mg/dl Assessment and Plan (1) Cellulitis of right hip Assessment & Plan: She will be continued on her current antibiotics. She does have a documented penicillin allergy. She will require 6 weeks from or debridement which is dated November 18. She is due for VAC change. I do not believe there are any plans for additional surgical debridement and she likely will be followed on an outpatient basis. I can follow along with her as well at the wound Center post discharge. She will need weekly CBC, complete metabolic panel, sed rate, CPK on antibiotics. (2) Abscess of right hip
--- NOTE | 2017-11-27 11:43 | Progress Note ---
Medicine Progress Note Date & Time of Visit: Nov 27, 2017 at 11:33. Subjective sitting in chair, alert, oriented x 3 states she feels tired pain on hip, well controlled denies dyspnea, chest pain, dizziness appetite poor- drinking Boost no other symptoms Objective Last 8 Hrs Date Time Temp Pulse Resp B/P (MAP) Pulse Ox O2 Delivery O2 Flow Rate FiO2 11/27/17 07:37 36.7 60 16 179/64 (102) 91 Room Air 11/27/17 07:19 Room Air Physical Exam: General- oriented x3, not in distress, speaks in sentences with no effort Neck- no JVD Lungs- clear BS bilaterally, no rales/wheezes Heart- regular rhythm; no murmur, normal rate Abdomen- normal bowel sounds, soft, nontender Extremities- (+) bilateral forearm swelling, thigh edema Right Hip: dressing in place, no bleeding, discharge, wound vac in place with serous drainage- minimal Neuro- alert, oriented x 3; no gross focal deficits Skin- warm & dry Laboratory Results: Last 24 Hours Test 11/26/17 12:03 11/26/17 17:04 11/26/17 20:42 11/27/17 11:05 Bedside Glucose 168 mg/dl 142 mg/dl 139 mg/dl Assessment & Plan This is an 87yo F with a PMH of R hip fracture s/p hip replacement in February 2017, DM II, HTN, CKD III, HLD, 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 R Hip Abscess H/o R hip replacement in February 2017 following with [facility] wound care x [address]: Right hip seroma with possible abscess, infected total hip.infected full thickness decubitus ulcer right buttock,displaced greater trrochanter fracture and abductor tear s/p fall,s/p radha for displaced femoral neck fracture as per ortho 2.4.18: s/p I&D with wound vac and drains placement I&D Cultures (+) Peptostreptococcus, Acinetobacter, Prevotella -- ID: continue Dapto and Ertapenem IV via PICC x 6 weeks total from Debridement 11/18/17 will need weekly CBC, complete metabolic panel, sed rate, CPK on antibiotics Wound: continue wound vac, d/c instructions noted TO RIGHT LATERAL HIP- [facility] WOUND VAC. IRRIGATE WOUND WITH SALINE USING 35CC SYRINGE AND 18G BLUNT NEEDLE. APPLY SKIN PREP TO PERIPHERY. ALLOW TO DRY. APPLY DRAPE TO WOUND PERIPHERY, APPLY BLACK FOAM TO WOUND BED, APPLY FOAM TO BOLSTER OVER UNDERMINED AREA AT 10-12 O'CLOCK. SEAL WITH DRAPE. SET PRESSURE -125MMHG. CHANGEEVERY SUNDAY, SUNDAY AND SUNDAY AND NEEDED TO MAINTAIN DRESSING FOLLOW UP AT [facility] CALL [phone] FOR APPOINTMENT. 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 continue Protonix 40mg BID. monitor Hg no plans for EGD resumed ASA -- HG stable MARIELA on CKD III Cr elevated to 1.46 (~1.1 baseline) resolved given IV fluids HTN: on metoprolol, amlodipine added Clonidine improving DM II: A1c of 7.0 in February 2017 holding home meds on basal bolus regimen Generalized seizure disorder: Stable on home dose keppra Depression: on celexa Chronic dyspnea on exertion: evaluated during previous admission in February 13 deconditioning PT/OT eval Presence of mild grade 1 diastolic dysfunction on echo EKG unremarkable f/u chest xra pa/lateral view-unremarkable H/o CVA: Stable, no residual deficit ASA DVT Ppx: SCDs ASA Heparin, discussed with Dr. Baird Code status: DNR per admission PCP: [facility] Dispo: awaiting clearance [facility] Current Inpatient Medications: Current Inpatient Medications Medications (Trade) Dose Ordered Sig/Zaina Route Start Time Stop Time Status Last Admin Dose Admin Ondansetron HCl (Zofran Inj) 4 mg Q6H PRN IV 11/16/17 11:45 12/16/17 11:44 Sodium Chloride 1,000 ml @ 50 mls/hr Q20H IV 11/16/17 15:00 12/16/17 14:59 11/26/17 23:25 50 MLS/HR Insulin Glargine (Lantus Solostar Pen) 6 units Q12 SC 11/16/17 21:00 12/16/17 20:59 11/27/17 09:35 6 UNITS Glucose (Glucose 40% Gel) 15-30 GRAMS 15 GRAMS... UD PRN PO 11/16/17 12:30 12/16/17 12:29 Glucose (Glucose Chew Tab) 4-8 Tablets 4 Tabl... UD PRN PO 11/16/17 12:30 12/16/17 12:29 Dextrose (Dextrose 50% 50ML Syringe) 25-50ML OF 50% DW IV FOR... UD PRN IV 11/16/17 12:30 12/16/17 12:29 Glucagon (Glucagon Inj) 1 mg UD PRN SQ 11/16/17 12:30 12/16/17 12:29 Cholecalciferol (Vitamin D Tab) 1,000 inter.unit DAILY PO 11/17/17 09:00 12/17/17 08:59 11/27/17 09:26 1,000 INTER.UNIT Cyanocobalamin (Vitamin B-12 Tab) 100 mcg DAILY PO 11/17/17 09:00 12/17/17 08:59 11/27/17 09:27 100 MCG Levetiracetam (Keppra Tab) 750 mg BID PO 11/16/17 21:00 12/16/17 20:59 11/27/17 09:27 750 MG Metoprolol Tartrate (Lopressor Tab) 25 mg BID PO 11/16/17 21:00 12/16/17 20:59 11/27/17 09:21 25 MG Simvastatin (Zocor Tab) 20 mg QPM PO 11/16/17 21:00 12/16/17 20:59 11/26/17 22:20 20 MG Zolpidem Tartrate (Ambien Tab) 5 mg HS PRN PO 11/16/17 12:45 12/16/17 12:44 11/26/17 22:30 5 MG Amlodipine Besylate (Norvasc Tab) 10 mg QAM PO 11/17/17 09:00 12/17/17 08:59 11/27/17 09:26 10 MG Polyethylene (Miralax Powder Packet) 17 gm DAILY PRN PO 11/16/17 15:00 12/16/17 14:59 11/23/17 18:05 17 GM Ferrous Sulfate (Feosol Tab) 325 mg TIDM PO 11/16/17 17:45 12/16/17 17:44 11/27/17 09:25 325 MG Citalopram Hydrobromide (celeXA TAB) 20 mg DAILY@1330 PO 11/18/17 13:30 12/18/17 13:29 11/26/17 13:14 20 MG Calcium/Vitamin D (Caltrate Plus Tab) 1 tab BID@0900,1330 PO 11/18/17 09:00 12/18/17 08:59 11/27/17 09:20 1 TAB Magnesium Hydroxide (Milk Of Magnesia Susp) 30 ml Q6H PRN PO 11/18/17 14:45 12/18/17 14:44 11/24/17 09:03 30 ML Al Hydrox/Mg Hydrox/Simethicone (Maalox Max Susp) 15 ml Q4H PRN PO 11/18/17 14:45 12/18/17 14:44 Multivitamins (Multivitamin Tab) 1 tab QAM PO 11/19/17 09:00 12/19/17 08:59 11/27/17 09:26 1 TAB Insulin Aspart (novoLOG ASPART) SLIDING SCALE If C... ACHS SC 11/19/17 08:00 12/19/17 07:59 11/26/17 19:10 2 UNITS Acetaminophen (Tylenol Tab) tylenol 325mg tab 1-2 ... Q4H PRN PO 11/19/17 15:30 12/16/17 11:44 Bisacodyl (Dulcolax Supp) 10 mg DAILY PRN TN 11/21/17 10:00 12/21/17 09:59 11/24/17 11:20 10 MG Folic Acid (Folvite Tab) 1 mg QAM PO 11/22/17 09:00 12/22/17 08:59 2/13/18 09:27 1 MG Enteral Nutritional Formula (Boost Glucose Control) 1 can BID PO 11/21/17 21:00 12/21/17 20:59 11/26/17 22:17 1 CAN Clonidine HCl (Catapres Tab) 0.1 mg Q6H PRN PO 11/21/17 19:15 12/21/17 19:14 Clonidine HCl (Catapres Tab) 0.1 mg BID PO 11/23/17 21:00 12/23/17 20:59 11/27/17 09:25 0.1 MG Senna/Docusate Sodium (Senokot S Tab) 1 tab QAM PO 11/25/17 09:00 12/25/17 08:59 11/27/17 09:27 1 TAB Aspirin (Ecotrin Tab) 81 mg DAILY PO 11/25/17 09:00 12/23/17 08:59 11/27/17 09:26 81 MG Heparin Sodium (Porcine) (Heparin Sq 5000 Unit/0.5ml) 5,000 unit Q12H SQ 11/24/17 11:15 12/24/17 11:14 11/26/17 22:23 5,000 UNIT Pantoprazole Sodium (Protonix Tab) 40 mg BID PO 11/24/17 21:00 12/24/17 20:59 11/27/17 09:21 40 MG Daptomycin 300 mg/ Syringe 6 ml @ 3 mls/min Q48H IV 11/25/17 18:30 01/04/18 18:29 11/25/17 19:34 3 MLS/MIN Ertapenem 1000 mg/ Sodium Chloride 60 ml @ 120 mls/hr Q24H IV 11/25/17 18:30 01/04/18 18:29 11/26/17 19:20 120 MLS/HR
[2017-11-27] MEDS ORDERED: FUROSEMIDE INJ 40 MG in SYRINGE 0 ML IV ONE (12:00)
[2017-11-27 12:15] VITALS: BP 126/69; PULSE 55; TEMP 36.6; O2SAT 92
[2017-11-27] MEDS: HEPARIN SOD 5000 UNIT/0.5 ML CARP SQ SCH ×2 (12:32→21:27)
[2017-11-27 12:53] LABS: BASO % 0.2 %; BASO ABS # 0.05 K/uL (0-0.2); EOS % 1.7 %; EOS ABS # 0.35 K/uL (0-0.5); HEMATOCRIT 30.8 % (37-47); HEMOGLOBIN 9.9 g/dL (12.0-16.0); IG# 0.19 K/uL (0.00-0.02); LYMPH % 10.3 %; LYMPH ABS # 2.18 K/uL (1.2-3.4); MEAN CELL VOLUME 89.3 fL (80-100); MEAN CORPUSCULAR HEMOGLOBIN 28.7 pg (25-34); MEAN CORPUSCULAR HGB CONC 32.1 g/dl (32-36); MEAN PLATELET VOLUME 8.4 fL (7.4-10.4); MONO % 5.6 %; MONO ABS # 1.18 K/uL (0.11-0.59); NEUT % 81.3 %; PLATELET COUNT 364 K/uL (130-400); RED CELL DISTRIBUTION WIDTH CV 15.6 % (11.5-14.5); RED CELL DISTRIBUTION WIDTH SD 49.6 fL (36.4-46.3); WHITE BLOOD COUNT 21.15 K/uL (4.8-10.8)
[2017-11-27 13:17] LABS: CALCIUM 9.2 mg/dl (8.5-10.1); CREATININE 0.71 mg/dl (0.60-1.20); POTASSIUM 3.9 mmol/L (3.5-5.1)
[2017-11-27] MEDS: CITALOPRAM 20 MG TAB PO SCH (14:06)
--- NOTE | 2017-11-27 14:09 | DIAGNOSTIC IMAGING REPORT ---
VENOUS DOPPLER UPR EXT BILA HISTORY: 87 years-old Female r/o dvt swelling of the upper extremities COMPARISON: None available TECHNIQUE: Multiple real-time sonographic images of the bilateral upper extremity deep venous structures were obtained assessing grayscale appearance, color and spectral flow FINDINGS: Study is limited secondary to patient positioning. Right-sided PICC is noted within the axillary region brachial and basilic veins are not well evaluated secondary to the patient's bandage within this distribution along with soft tissue edema. PICC is noted within the right subclavian vein The imaged deep veins of the bilateral upper extremities demonstrate normal flow, compressibility, phasicity and augmentation. Left upper extremity basilic vein not seen. Mild edema of the left upper extremity. Within the left chest wall superficial subcutaneous tissues there is an ovoid lesion which appears isoechoic to subcutaneous fat measuring up to 5.4 x 5.5 x 1.8 cm. IMPRESSION: 1. Limited study as above without sonographic evidence of deep venous thrombosis. 2. Right-sided PICC seen within the subclavian vein. 3. Indeterminate soft tissue lesion of the subcutaneous left chest wall suggests possible lipoma. The above report was generated using voice recognition software. It may contain grammatical, syntax or spelling errors. Electronically signed by: Shane Mcdermott M.D. 11/27/2017 2:07 PM Dictated Date/Time: 11/27/2017 2:04 PM
[2017-11-27 14:53] VITALS: BP 156/74; PULSE 55; TEMP 36.3; O2SAT 95
--- NOTE | 2017-11-27 16:20 | Orthopedic Progress Note ---
Orthopedic Progress Note Date of Service Nov 27, 2017. Subjective Additional Notes: Asked to see patient due to an increase in the drainage from the wound vac. Pt lying in bed. Awake, alert. Appears tired. States she's not having a lot of pain with the hip. Mostly when she gets up to the chair. States that it is greater on the lateral aspect of the hip rather than in the joint. Objective calves soft nontender, N/V intact, toes mobile Wound vac intact and functioning. Serous drainage noted in canister. Canister has not been changed since yesterday. The skin edges look good and there is no overt erythema noted. Hip /thigh are soft and NT. No pain with logrolling. Date Time Temp Pulse Resp B/P (MAP) Pulse Ox O2 Delivery O2 Flow Rate FiO2 11/27/17 14:53 36.3 55 22 156/74 (101) 95 Nasal Cannula 2.0 11/27/17 12:15 36.6 55 16 126/69 (88) 92 Nasal Cannula 2.0 11/27/17 07:37 36.7 60 16 179/64 (102) 91 Room Air 11/27/17 07:19 Room Air 11/26/17 23:25 Room Air 11/26/17 23:07 36.5 61 16 129/72 (91) 93 Room Air 11/26/17 22:34 Room Air 11/26/17 22:16 62 148/70 (96) Laboratory Results 24 Hours: Test 11/27/17 12:43 White Blood Count 21.15 K/uL Red Blood Count 3.45 M/uL Hemoglobin 9.9 g/dL Hematocrit 30.8 % Mean Corpuscular Volume 89.3 fL Mean Corpuscular Hemoglobin 28.7 pg Mean Corpuscular Hemoglobin Concent 32.1 g/dl Platelet Count 364 K/uL Mean Platelet Volume 8.4 fL Neutrophils (%) (Auto) 81.3 % Lymphocytes (%) (Auto) 10.3 % Monocytes (%) (Auto) 5.6 % Eosinophils (%) (Auto) 1.7 % Basophils (%) (Auto) 0.2 % Neutrophils # (Auto) 17.20 K/uL Lymphocytes # (Auto) 2.18 K/uL Monocytes # (Auto) 1.18 K/uL Eosinophils # (Auto) 0.35 K/uL Basophils # (Auto) 0.05 K/uL Assessment & Plan Assessment: SP I&D RIGHT HIP, DEBRIDEMENT OF ULCER AND APPLICATION OF WOUND VAC. Plan: Serous drainage noted to be somewhat increased. Discussed case with Lana Rahman from Wound Care. Wound is looking good. No overt purulence. Serous drainage has been fairly consistent. Drainage will be increased due to Stimulan beads implanted. There is some concern that her white count has not come down. I will discuss the case with Dr Luu. Wound care will be changing the wound vac tomorrow and I will try to coordinate with them to be there at the time of the wound check.
[2017-11-27] MEDS: DAPTOmycin IV 300 MG in SYRINGE 0 ML IV SCH (19:03)
[2017-11-27] MEDS: ERTAPENEM IV 1,000 MG in SODIUM CHLORIDE 0.9% 50ML 50 ML IV SCH (19:05)
[2017-11-27] MEDS: SIMVASTATIN 20 MG TAB PO SCH (21:13)
[2017-11-27] MEDS: ZOLPIDEM TARTRATE 5 MG TAB PO PRN (21:21)
[2017-11-27 21:30] VITALS: BP 153/69; PULSE 64; TEMP 36.6; O2SAT 94
[2017-11-27 22:48] VITALS: BP 125/56; PULSE 61; TEMP 36.3; O2SAT 96
[2017-11-28] MEDS: INSULIN ASPART 100 UNITS/ML 3 ML PEN SC SCH ×4 (08:00→20:46)
[2017-11-28 08:26] VITALS: BP 126/72; PULSE 62; TEMP 36.4; O2SAT 93
[2017-11-28 08:30] VITALS: O2SAT 93
[2017-11-28] MEDS: FERROUS SULFATE 325 MG TAB PO SCH ×3 (08:53→18:00)
[2017-11-28] MEDS: BOOST GLUCOSE CONTROL PO SCH ×2 (08:58→20:37)
[2017-11-28] MEDS: CALCIUM 600MG + VIT D 400 IU TAB PO SCH ×2 (09:00→13:22)
[2017-11-28] MEDS: CLONIDINE HCL 0.1 MG TAB PO SCH ×2 (09:01→20:37)
[2017-11-28] MEDS: ASPIRIN 81 MG ECTAB PO SCH (09:03)
[2017-11-28] MEDS: LEVETIRACETAM 500 MG TAB PO SCH ×2 (09:08→20:36)
[2017-11-28] MEDS: METOPROLOL TARTRATE 25 MG TAB PO SCH ×2 (09:09→20:37)
[2017-11-28] MEDS: MULTIVITAMIN TAB PO SCH (09:11)
[2017-11-28] MEDS: AMLODIPINE BESYLATE 5 MG TAB PO SCH (09:12)
[2017-11-28] MEDS: PANTOprazole SOD 40 MG TAB PO SCH ×2 (09:14→20:37)
[2017-11-28] MEDS: DOCUSATE SODIUM/SENNA 50/8.6MG TAB PO SCH (09:19)
[2017-11-28] MEDS: CYANOCOBALAMIN 100 MCG TAB (VIT B-12) PO SCH (09:20)
[2017-11-28] MEDS: CHOLECALCIFEROL 1000 INTER.UNIT TAB PO SCH (09:21)
[2017-11-28] MEDS: INSULIN GLARGINE SOLOSTAR 100 UNITS/ML 3 ML PEN SC SCH ×2 (09:42→20:57)
--- NOTE | 2017-11-28 11:21 | Progress Note ---
Subjective Date of Service: Nov 28, 2017. Subjective Pt evaluation today including: conversation w/ patient, physical exam, chart review, lab review pt lethargic today, opens eyes to name non verbal. For vac change later today with surgery and wound care. afebrile. blood cultures negative and final. continues with abx, tolerating well. wbc remains elevated. uto ros. Problem List Medical Problems: (1) Abscess of right hip Status: Acute (2) Altered mental status Status: Acute (3) Bradycardia Status: Acute (4) Cellulitis of right hip Status: Acute (5) Expressive aphasia Status: Acute (6) Fall Status: Acute (7) Possible urinary tract infection Status: Acute (8) Receptive aphasia Status: Acute (9) Skin tear of right hand without complication Status: Acute Objective Vital Signs Date Time Temp Pulse Resp B/P (MAP) Pulse Ox O2 Delivery O2 Flow Rate FiO2 11/28/17 08:30 93 Nasal Cannula 1.0 11/28/17 08:26 36.4 62 20 126/72 (90) 93 Nasal Cannula 1.0 11/28/17 07:15 Nasal Cannula 2.0 11/27/17 23:45 Nasal Cannula 2.0 11/27/17 22:48 36.3 61 17 125/56 (79) 96 Nasal Cannula 2.0 11/27/17 21:30 36.6 64 18 153/69 (97) 94 Nasal Cannula 2.0 11/27/17 15:45 Nasal Cannula 2.0 11/27/17 14:53 36.3 55 22 156/74 (101) 95 Nasal Cannula 2.0 11/27/17 12:15 36.6 55 16 126/69 (88) 92 Nasal Cannula 2.0 Physical Exam General Appearance: + pertinent finding (lethargic) ENT: + pertinent finding (mmd) Neck: supple Respiratory/Chest: normal breath sounds, no respiratory distress, + decreased breath sounds Cardiovascular: regular rate, rhythm Abdomen: soft Extremities: non-tender Skin: normal color Laboratory Results Item Value Date Time Gram Stain - Final Complete 11/18/17 1110 Joint Fluid/Space (Synovial) Hip , Right Gram Stain - Final Complete 11/18/17 1100 Drainage-Deep Hip , Right Gram Stain - Final Complete 11/18/17 1055 Drainage-Deep Hip , Right Blood Culture - Final Complete 11/16/17 0910 Blood NO GROWTH Blood Culture - Final Complete 11/16/17 0900 Blood NO GROWTH Last 24 Hours Test 11/27/17 12:01 11/27/17 12:43 11/27/17 16:58 11/27/17 20:47 Bedside Glucose 103 mg/dl 92 mg/dl 104 mg/dl White Blood Count 21.15 K/uL Red Blood Count 3.45 M/uL Hemoglobin 9.9 g/dL Hematocrit 30.8 % Mean Corpuscular Volume 89.3 fL Mean Corpuscular Hemoglobin 28.7 pg Mean Corpuscular Hemoglobin Concent 32.1 g/dl Platelet Count 364 K/uL Mean Platelet Volume 8.4 fL Neutrophils (%) (Auto) 81.3 % Lymphocytes (%) (Auto) 10.3 % Monocytes (%) (Auto) 5.6 % Eosinophils (%) (Auto) 1.7 % Basophils (%) (Auto) 0.2 % Neutrophils # (Auto) 17.20 K/uL Lymphocytes # (Auto) 2.18 K/uL Monocytes # (Auto) 1.18 K/uL Eosinophils # (Auto) 0.35 K/uL Basophils # (Auto) 0.05 K/uL RDW Standard Deviation 49.6 fL RDW Coefficient of Variation 15.6 % Immature Granulocyte % (Auto) 0.9 % Immature Granulocyte # (Auto) 0.19 K/uL Sodium Level 131 mmol/L Potassium Level 3.9 mmol/L Chloride Level 99 mmol/L Carbon Dioxide Level 28 mmol/L Anion Gap 4.0 mmol/L Blood Urea Nitrogen 16 mg/dl Creatinine 0.71 mg/dl Est Creatinine Clear Calc Drug Dose 47.2 ml/min Estimated GFR () 88.1 Estimated GFR (Non- 76.0 BUN/Creatinine Ratio 22.8 Random Glucose 90 mg/dl Calcium Level 9.2 mg/dl Assessment and Plan (1) Cellulitis of right hip Assessment & Plan: She will be continued on her current antibiotics. She does have a documented penicillin allergy. She will require 6 weeks from or debridement which is dated November 18. She is due for VAC change. I do not believe there are any plans for additional surgical debridement and she likely will be followed on an outpatient basis. I can follow along with her as well at the wound Center post discharge. She will need weekly CBC, complete metabolic panel, sed rate, CPK on antibiotics. (2) Abscess of right hip
[2017-11-28] MEDS: HEPARIN SOD 5000 UNIT/0.5 ML CARP SQ SCH ×2 (11:37→22:57)
[2017-11-28] MEDS: CITALOPRAM 20 MG TAB PO SCH (13:24)
--- NOTE | 2017-11-28 13:55 | Orthopedic Progress Note ---
Orthopedic Progress Note Date of Service Nov 28, 2017. Subjective Additional Notes: Pt lying bed. 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 Pt lying on her side. New wound vac applied today. Appears to be functioning well. Pt states she feels she is doing well. Objective calves soft nontender, N/V intact, hip located Wound vac on lateral hip wound. No erythema noted around the edges or the hip itself. No overt swelling. Thigh is soft. NT. Gentle ROM of the hip does not cause any pain. Pt states that "it feels good" to take the hip through ROM. Date Time Temp Pulse Resp B/P (MAP) Pulse Ox O2 Delivery O2 Flow Rate FiO2 11/28/17 08:30 93 Nasal Cannula 1.0 11/28/17 08:26 36.4 62 20 126/72 (90) 93 Nasal Cannula 1.0 11/28/17 07:15 Nasal Cannula 2.0 11/27/17 23:45 Nasal Cannula 2.0 11/27/17 22:48 36.3 61 17 125/56 (79) 96 Nasal Cannula 2.0 11/27/17 21:30 36.6 64 18 153/69 (97) 94 Nasal Cannula 2.0 11/27/17 15:45 Nasal Cannula 2.0 11/27/17 14:53 36.3 55 22 156/74 (101) 95 Nasal Cannula 2.0 Assessment & Plan Assessment: SP I&D RIGHT HIP, DEBRIDEMENT OF ULCER AND APPLICATION OF WOUND VAC. Plan: Vac changed today. I spoke briefly to Lana Rahman that the wound has no major changes. No purulence. Serosanguineous drainage. No odor etc. Will continue with IV antibx and wound vac changes per Wound Care Team. Planning for [facility] when ok with Med Service. Follow up with Dr Byrd next week in the office. Any sutures left in should be removed early next week.
[2017-11-28 15:28] VITALS: BP 130/63; PULSE 55; TEMP 36.9; O2SAT 92
--- NOTE | 2017-11-28 16:30 | Progress Note ---
Internal Med Progress Note Date of Service: Nov 28, 2017. Provider Documentation: SUBJECTIVE: Seen and examined at bedside States feeling very tired Poor oral intake Denies chest pain Reports mild cough and SOB Leg pain is controlled Wound Vac is changed today OBJECTIVE: Vital Signs-as noted below Physical Exam: General Appearance:Moderately built and nourished Head: normocephalic, Atraumatic Eyes: normal inspection, EOMI, PERRL Neck: supple, Trachea midline Respiratory/Chest: B/L air entry, B/L wheezes heard Cardiovascular: S1, S2, No murmur Abdomen/GI:Soft, Non tender, Bowel sounds present Extremities/Musculoskelatal:normal inspection, B/L UE and LE swelling noted, RLE wound vac in place Neurologic/Psych:grossly no focal neurological deficits Skin: normal color, warm Lab data as noted below. 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 R Hip Abscess H/o R hip replacement in February 2017 Following with [facility] wound care x [address]: Right hip seroma with possible abscess, infected total hip. Infected full thickness decubitus ulcer right buttock,displaced greater trochanter fracture and abductor tear s/p fall,s/p radha for displaced femoral neck fracture as per ortho S/P I&D with wound vac and drains placement I&D Cultures (+) Peptostreptococcus, Acinetobacter, Prevotella Appreciate Ortho and ID help continue Dapto and Ertapenem IV via PICC x 6 weeks total from Debridement Needs weekly CBC, complete metabolic panel, sed rate, CPK while on antibiotics Continue Wound care B/L UE edema H/O Diastolic CHF US Doppler: No DVT Will give lasix 40mg IV today monitor I&O Check CXR in AM Oxygen PRN Right Labial Ulcer: H/O vaginal lesion/possible vulvar neoplasm ff up with [facility] in Jul 2017 Not biopsied but presumed to be malignant Excision not recommended 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 continue Protonix 40mg BID. monitor Hg No plans for EGD Resumed ASA Monitor Hb MARIELA on CKD III Cr elevated to 1.46 (~1.1 baseline) resolved IV fluids PRN HTN: on metoprolol, amlodipine added Clonidine Stable DM II: A1c of 7.0 in February 2017 holding home meds Continue ISS, lantus Generalized seizure disorder: Stable Continue keppra Depression: on celexa Chronic dyspnea on exertion: evaluated during previous admission in February 13 deconditioning PT/OT eval Presence of mild grade 1 diastolic dysfunction on echo EKG unremarkable H/o CVA: Stable, no residual deficit ASA DVT Px: Heparin SQ Code status: DNR PCP: [facility] Disposition: Needs Rehab placement Vital Signs: Date Time Temp Pulse Resp B/P (MAP) Pulse Ox O2 Delivery O2 Flow Rate FiO2 11/28/17 15:28 36.9 55 18 130/63 (85) 92 Nasal Cannula 1.5 11/28/17 08:30 93 Nasal Cannula 1.0 11/28/17 08:26 36.4 62 20 126/72 (90) 93 Nasal Cannula 1.0 11/28/17 07:15 Nasal Cannula 2.0 11/27/17 23:45 Nasal Cannula 2.0 11/27/17 22:48 36.3 61 17 125/56 (79) 96 Nasal Cannula 2.0 11/27/17 21:30 36.6 64 18 153/69 (97) 94 Nasal Cannula 2.0 Lab Results: Results Past 24 Hours Test 11/27/17 16:58 11/27/17 20:47 11/28/17 08:05 11/28/17 11:46 Range/Units Bedside Glucose 92 104 73 94 70-90 mg/dl
[2017-11-28] MEDS ORDERED: FUROSEMIDE INJ 40 MG in SYRINGE 0 ML IV ONE (17:00)
[2017-11-28] MEDS: ERTAPENEM IV 1,000 MG in SODIUM CHLORIDE 0.9% 50ML 50 ML IV SCH (18:14)
[2017-11-28] MEDS: ALBUT/IPRATROP 3MG/0.5MG NEB 3 ML VIAL INH SCH (19:51)
[2017-11-28 19:52] VITALS: PULSE 55; O2SAT 94
[2017-11-28 20:29] VITALS: BP 124/52; PULSE 63
[2017-11-28] MEDS: SIMVASTATIN 20 MG TAB PO SCH (20:37)
[2017-11-28] MEDS: ZOLPIDEM TARTRATE 5 MG TAB PO PRN (20:58)
[2017-11-28 22:52] VITALS: BP 131/50; PULSE 56; TEMP 36.6; O2SAT 95
[2017-11-29] VITALS (7 sets, daily range): BP systolic 135–148; BP diastolic 56–66; PULSE 52–61; TEMP 36.3–36.6; O2SAT 92–96
[2017-11-29 05:55] LABS: HEMATOCRIT 27.2 % (37-47); HEMOGLOBIN 9.1 g/dL (12.0-16.0); MEAN CELL VOLUME 88.9 fL (80-100); MEAN CORPUSCULAR HEMOGLOBIN 29.7 pg (25-34); MEAN CORPUSCULAR HGB CONC 33.5 g/dl (32-36); MEAN PLATELET VOLUME 8.3 fL (7.4-10.4); PLATELET COUNT 334 K/uL (130-400); RED CELL DISTRIBUTION WIDTH CV 15.7 % (11.5-14.5); RED CELL DISTRIBUTION WIDTH SD 49.9 fL (36.4-46.3); WHITE BLOOD COUNT 15.89 K/uL (4.8-10.8)
[2017-11-29 06:21] LABS: CALCIUM 8.9 mg/dl (8.5-10.1); CREATININE 0.72 mg/dl (0.60-1.20); POTASSIUM 3.4 mmol/L (3.5-5.1)
[2017-11-29] MEDS: ALBUT/IPRATROP 3MG/0.5MG NEB 3 ML VIAL INH SCH ×4 (07:01→20:07)
--- NOTE | 2017-11-29 08:00 | DIAGNOSTIC IMAGING REPORT ---
CHEST ONE VIEW PORTABLE HISTORY: 87 years-old Female cough acute cough COMPARISON: Chest radiographs 11/17/2017 TECHNIQUE: Portable AP view of the chest FINDINGS: The patient is rotated to the right. Cardiac silhouette is mildly enlarged. Atherosclerosis of the aorta. Right-sided PICC is noted with distal tip in the region of the mid SVC. No pneumothorax. There are small bilateral pleural effusions with bibasilar alveolar opacities. Linear opacity of the lateral left midlung is noted suggesting atelectasis or scarring. Fluid tracks into the minor fissure. Chronic post traumatic changes of the right shoulder are noted with degenerative changes of the shoulders and spine. IMPRESSION: 1. Limited study secondary to patient rotation. 2. Cardiomegaly with small bilateral pleural effusions and bibasilar opacities suggesting atelectasis or pneumonia. 3. Right-sided PICC with distal tip in the region of the mid SVC. No pneumothorax identified. The above report was generated using voice recognition software. It may contain grammatical, syntax or spelling errors. Electronically signed by: Shane Mcdermott M.D. 11/29/2017 7:58 AM Dictated Date/Time: 11/29/2017 7:57 AM
[2017-11-29] MEDS ORDERED: POTASSIUM CHLORIDE 10 MEQ TABCR PO ONE (08:15)
[2017-11-29] MEDS: BOOST GLUCOSE CONTROL PO SCH ×2 (09:00→21:00)
[2017-11-29] MEDS: INSULIN ASPART 100 UNITS/ML 3 ML PEN SC SCH ×4 (09:05→21:18)
[2017-11-29] MEDS: DOCUSATE SODIUM/SENNA 50/8.6MG TAB PO SCH (09:06)
[2017-11-29] MEDS: PANTOprazole SOD 40 MG TAB PO SCH ×2 (09:06→21:04)
[2017-11-29] MEDS: METOPROLOL TARTRATE 25 MG TAB PO SCH ×2 (09:07→21:04)
[2017-11-29] MEDS: MULTIVITAMIN TAB PO SCH (09:08)
[2017-11-29] MEDS: CLONIDINE HCL 0.1 MG TAB PO SCH ×2 (09:12→21:04)
[2017-11-29] MEDS: CHOLECALCIFEROL 1000 INTER.UNIT TAB PO SCH (09:12)
[2017-11-29] MEDS: AMLODIPINE BESYLATE 5 MG TAB PO SCH (09:12)
[2017-11-29] MEDS: CALCIUM 600MG + VIT D 400 IU TAB PO SCH ×2 (09:12→13:54)
[2017-11-29] MEDS: CYANOCOBALAMIN 100 MCG TAB (VIT B-12) PO SCH (09:13)
[2017-11-29] MEDS: ASPIRIN 81 MG ECTAB PO SCH (09:13)
[2017-11-29] MEDS: FERROUS SULFATE 325 MG TAB PO SCH ×3 (09:13→18:09)
[2017-11-29] MEDS: LEVETIRACETAM 500 MG TAB PO SCH ×2 (09:14→21:03)
[2017-11-29] MEDS: INSULIN GLARGINE SOLOSTAR 100 UNITS/ML 3 ML PEN SC SCH ×2 (09:18→21:19)
--- NOTE | 2017-11-29 11:16 | Progress Note ---
Internal Med Progress Note Date of Service: Nov 29, 2017. Provider Documentation: SUBJECTIVE: Seen and examined at bedside Reports generalized pain and feels very tired Reports intermittent cough with expectoration Poor oral intake Denies chest pain, SOB Leg pain is controlled Wound Vac in place OBJECTIVE: Vital Signs-as noted below Physical Exam: General Appearance:Moderately built and nourished Head: normocephalic, Atraumatic Eyes: normal inspection, EOMI, PERRL Neck: supple, Trachea midline Respiratory/Chest: B/L air entry, B/L wheezes Cardiovascular: S1, S2, No murmur Abdomen/GI:Soft, Non tender, Bowel sounds present Extremities/Musculoskelatal:normal inspection, B/L UE and LE swelling noted, RLE wound vac in place Neurologic/Psych:grossly no focal neurological deficits Skin: normal color, warm Lab data as noted below. 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 R Hip Abscess H/o R hip replacement in February 2017 Following with [place] wound care x [address]: Right hip seroma with possible abscess, infected total hip. Infected full thickness decubitus ulcer right buttock,displaced greater trochanter fracture and abductor tear s/p fall,s/p radha for displaced femoral neck fracture as per ortho S/P I&D with wound vac and drains placement I&D Cultures (+) Peptostreptococcus, Acinetobacter, Prevotella Appreciate Ortho and ID help continue Dapto and Ertapenem IV via PICC x 6 weeks total from Debridement Needs weekly CBC, complete metabolic panel, sed rate, CPK while on antibiotics Continue Wound care B/L UE edema Acute on chronic Diastolic CHF US Doppler: No DVT S/P IV Lasix Will PO lasix 40mg today monitor I&O CXR reviewed Oxygen PRN Right Labial Ulcer: H/O vaginal lesion/possible vulvar neoplasm ff up with [facility] in Jul 2017 Not biopsied but presumed to be malignant Excision not recommended Referral to [facility] onc in [place] offered but patient not interested Consulted Chief Data Officer 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 continue Protonix 40mg BID. monitor Hg No plans for EGD Resumed ASA Monitor Hb MARIELA on CKD III Cr elevated to 1.46 (~1.1 baseline) resolved monitor HTN: on metoprolol, amlodipine added Clonidine Stable DM II: A1c of 7.0 in February 2017 holding home meds Continue ISS, lantus Generalized seizure disorder: Stable Continue keppra Depression: on celexa Chronic dyspnea on exertion: evaluated during previous admission in February 13 deconditioning PT/OT eval Presence of mild grade 1 diastolic dysfunction on echo EKG unremarkable H/o CVA: Stable continue ASA DVT Px: Heparin SQ Code status: DNR PCP: [facility] Disposition: Plan to discharge to Rehab facility when stable Vital Signs: Date Time Temp Pulse Resp B/P (MAP) Pulse Ox O2 Delivery O2 Flow Rate FiO2 11/29/17 15:37 53 16 93 Nasal Cannula 2.0 11/29/17 15:26 36.4 54 18 137/56 (83) 94 Nasal Cannula 2.0 11/29/17 11:52 52 18 94 Nasal Cannula 2.0 11/29/17 08:20 Nasal Cannula 2.0 11/29/17 07:13 36.3 58 15 135/65 (88) 94 Nasal Cannula 2.0 11/29/17 07:01 54 18 96 Nasal Cannula 2.0 11/28/17 22:52 36.6 56 18 131/50 (77) 95 Nasal Cannula 2.0 11/28/17 20:29 63 124/52 (76) 11/28/17 19:52 55 18 94 Nasal Cannula 2.0 11/28/17 19:30 Nasal Cannula 2.0 Lab Results: Results Past 24 Hours Test 11/28/17 20:14 11/29/17 05:32 11/29/17 08:18 11/29/17 11:42 Range/Units Bedside Glucose 118 101 175 70-90 mg/dl White Blood Count 15.89 4.8-10.8 K/uL Red Blood Count 3.06 4.2-5.4 M/uL Hemoglobin 9.1 12.0-16.0 g/dL Hematocrit 27.2 37-47 % Mean Corpuscular Volume 88.9 80-100 fL Mean Corpuscular Hemoglobin 29.7 25-34 pg Mean Corpuscular Hemoglobin Concent 33.5 32-36 g/dl RDW Standard Deviation 49.9 36.4-46.3 fL RDW Coefficient of Variation 15.7 11.5-14.5 % Platelet Count 334 130-400 K/uL Mean Platelet Volume 8.3 7.4-10.4 fL Sodium Level 135 136-145 mmol/L Potassium Level 3.4 3.5-5.1 mmol/L Chloride Level 98 98-107 mmol/L Carbon Dioxide Level 32 21-32 mmol/L Anion Gap 5.0 3-11 mmol/L Blood Urea Nitrogen 15 7-18 mg/dl Creatinine 0.72 0.60-1.20 mg/dl Est Creatinine Clear Calc Drug Dose 46.5 ml/min Estimated GFR () 86.7 Estimated GFR (Non- 74.8 BUN/Creatinine Ratio 20.4 10-20 Random Glucose 85 70-99 mg/dl Calcium Level 8.9 8.5-10.1 mg/dl Test 11/29/17 16:59 Range/Units Bedside Glucose 144 70-90 mg/dl
[2017-11-29] MEDS: HEPARIN SOD 5000 UNIT/0.5 ML CARP SQ SCH ×2 (11:33→21:20)
[2017-11-29] MEDS ORDERED: FUROSEMIDE 40 MG TAB PO ONE (11:40)
--- NOTE | 2017-11-29 12:03 | Clinical Documentation Query ---
CLINICAL DOCUMENTATION QUERY ON 11/28 patient was given IV Lasix. Progress notes stating "H/O diastolic CHF. . ." In your clinical opinion is this patient being managed for: ( X ) Acute on chronic diastolic (preserved EF) CHF treated with IV Lasix ( ) Not Agree ( ) Other explanation of clinical findings (Please Explain) ( ) Unable to determine (Please Define) ( ) Need to Discuss The medical record reflects the following clinical findings, treatment, and risk factors. Clinical Indicators: As above. Lungs exam on 11/28 described as having bilateral wheezes. Treatment: IV Lasix, I/O's, Obrien, Risk Factors: Age, hx of CHF, Please clarify and document your clinical opinion in the progress notes and discharge summary. Terms such as "probable", "suspected", "likely", "questionable", "possible", or "still to be ruled out" are acceptable. IF IN AGREEMENT, YOU MUST DOCUMENT ABOVE DIAGNOSTIC STATEMENT IN DAILY PROGRESS NOTES AND DISCHARGE SUMMARY. This document is not part of the patient's record. Thank You, Jonathan Malcolm, RN [phone]
[2017-11-29] MEDS: CITALOPRAM 20 MG TAB PO SCH (13:54)
[2017-11-29] MEDS: ERTAPENEM IV 1,000 MG in SODIUM CHLORIDE 0.9% 50ML 50 ML IV SCH (18:15)
[2017-11-29] MEDS: DAPTOmycin IV 300 MG in SYRINGE 0 ML IV SCH (18:17)
[2017-11-29] MEDS: SIMVASTATIN 20 MG TAB PO SCH (21:03)
[2017-11-29] MEDS: ZOLPIDEM TARTRATE 5 MG TAB PO PRN (21:20)
[2017-11-30] VITALS (8 sets, daily range): BP systolic 126–156; BP diastolic 64–76; PULSE 59–71; TEMP 36.4–37.1; O2SAT 93–98
[2017-11-30 05:56] LABS: HEMATOCRIT 27.6 % (37-47); HEMOGLOBIN 9.3 g/dL (12.0-16.0); MEAN CELL VOLUME 89.9 fL (80-100); MEAN CORPUSCULAR HEMOGLOBIN 30.3 pg (25-34); MEAN CORPUSCULAR HGB CONC 33.7 g/dl (32-36); MEAN PLATELET VOLUME 8.7 fL (7.4-10.4); PLATELET COUNT 334 K/uL (130-400); RED CELL DISTRIBUTION WIDTH CV 15.7 % (11.5-14.5); RED CELL DISTRIBUTION WIDTH SD 50.7 fL (36.4-46.3); WHITE BLOOD COUNT 17.59 K/uL (4.8-10.8)
[2017-11-30 06:30] LABS: CALCIUM 8.9 mg/dl (8.5-10.1); CREATININE 0.7 mg/dl (0.60-1.20); POTASSIUM 3.8 mmol/L (3.5-5.1)
[2017-11-30] MEDS: ALBUT/IPRATROP 3MG/0.5MG NEB 3 ML VIAL INH SCH ×4 (07:31→19:08)
[2017-11-30] MEDS: FERROUS SULFATE 325 MG TAB PO SCH ×3 (08:44→18:07)
[2017-11-30] MEDS: CALCIUM 600MG + VIT D 400 IU TAB PO SCH ×2 (08:44→13:19)
[2017-11-30] MEDS: CLONIDINE HCL 0.1 MG TAB PO SCH ×2 (08:46→21:44)
[2017-11-30] MEDS: ASPIRIN 81 MG ECTAB PO SCH (08:47)
[2017-11-30] MEDS: LEVETIRACETAM 500 MG TAB PO SCH ×2 (08:50→21:45)
[2017-11-30] MEDS: METOPROLOL TARTRATE 25 MG TAB PO SCH ×2 (08:51→21:47)
[2017-11-30] MEDS: MULTIVITAMIN TAB PO SCH (08:52)
[2017-11-30] MEDS: AMLODIPINE BESYLATE 5 MG TAB PO SCH (08:53)
[2017-11-30] MEDS: PANTOprazole SOD 40 MG TAB PO SCH ×2 (08:53→21:48)
[2017-11-30] MEDS: DOCUSATE SODIUM/SENNA 50/8.6MG TAB PO SCH (08:54)
[2017-11-30] MEDS: CHOLECALCIFEROL 1000 INTER.UNIT TAB PO SCH (08:55)
[2017-11-30] MEDS: CYANOCOBALAMIN 100 MCG TAB (VIT B-12) PO SCH (08:55)
[2017-11-30] MEDS: ACETAMINOPHEN 325 MG TAB PO PRN (09:06)
[2017-11-30] MEDS: INSULIN ASPART 100 UNITS/ML 3 ML PEN SC SCH ×4 (09:17→22:00)
[2017-11-30] MEDS: INSULIN GLARGINE SOLOSTAR 100 UNITS/ML 3 ML PEN SC SCH ×2 (09:19→22:00)
[2017-11-30] MEDS: BOOST GLUCOSE CONTROL PO SCH ×2 (09:26→21:44)
[2017-11-30] MEDS: HEPARIN SOD 5000 UNIT/0.5 ML CARP SQ SCH (11:14)
--- NOTE | 2017-11-30 11:43 | Progress Note ---
Internal Med Progress Note Date of Service: Nov 30, 2017. Provider Documentation: SUBJECTIVE: Seen and examined at bedside Still very weak and tired Has Wheezes on exam Has intermittent cough with expectoration Poor oral intake Denies chest pain Leg pain is controlled Wound Vac in place OBJECTIVE: Vital Signs-as noted below Physical Exam: General Appearance:Moderately built and nourished Head: normocephalic, Atraumatic Eyes: normal inspection, EOMI, PERRL Neck: supple, Trachea midline Respiratory/Chest: B/L air entry, B/L wheezes Cardiovascular: S1, S2, No murmur Abdomen/GI:Soft, Non tender, Bowel sounds present Extremities/Musculoskelatal:normal inspection, B/L UE and LE swelling noted, RLE wound vac in place Neurologic/Psych:grossly no focal neurological deficits Skin: normal color, warm Lab data as noted below. 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 R Hip Abscess H/o R hip replacement in February 2017 Following with [place] wound care x [address]: Right hip seroma with possible abscess, infected total hip. Infected full thickness decubitus ulcer right buttock,displaced greater trochanter fracture and abductor tear s/p fall,s/p radha for displaced femoral neck fracture as per ortho S/P I&D with wound vac and drains placement I&D Cultures (+) Peptostreptococcus, Acinetobacter, Prevotella Appreciate Ortho and ID help continue Dapto and Ertapenem IV via PICC x 6 weeks total from Debridement Needs weekly CBC, complete metabolic panel, sed rate, CPK while on antibiotics Continue Wound care Acute on chronic Diastolic CHF B/L UE edema Volume overload US Doppler: No DVT Give IV Lasix 40mg today monitor I&O CXR reviewed Oxygen PRN Right Labial Ulcer: H/O vaginal lesion/possible vulvar neoplasm ff up with [facility] in Jul 2017 Not biopsied but presumed to be malignant Excision not recommended 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 continue Protonix 40mg BID. monitor Hg No plans for EGD Resumed ASA Monitor Hb MARIELA on CKD III Cr elevated to 1.46 (~1.1 baseline) resolved monitor HTN: on metoprolol, amlodipine added Clonidine Stable DM II: A1c of 7.0 in February 2017 holding home meds Continue ISS, lantus Generalized seizure disorder: Stable Continue keppra Depression: on celexa Chronic dyspnea on exertion: evaluated during previous admission in February 13 deconditioning PT/OT eval Presence of mild grade 1 diastolic dysfunction on echo EKG unremarkable H/o CVA: Stable continue ASA DVT Px: Heparin SQ Code status: DNR PCP: [facility] Disposition: Plan to discharge to Rehab facility when stable Patient very deconditioned from comorbidities Very slow recovery Offered to talk to patient's family, patient says "It is not necessary" Vital Signs: Date Time Temp Pulse Resp B/P (MAP) Pulse Ox O2 Delivery O2 Flow Rate FiO2 11/30/17 11:22 59 16 94 Nasal Cannula 2.0 11/30/17 07:45 98 Nasal Cannula 2.0 11/30/17 07:43 37.1 70 16 156/76 (102) 98 Nasal Cannula 2.0 11/30/17 07:35 71 16 93 Nasal Cannula 2.0 11/29/17 23:18 36.6 61 18 148/66 (93) 92 Nasal Cannula 2.0 11/29/17 20:07 55 16 94 Nasal Cannula 2.0 11/29/17 19:30 Nasal Cannula 2.0 11/29/17 15:37 53 16 93 Nasal Cannula 2.0 11/29/17 15:26 36.4 54 18 137/56 (83) 94 Nasal Cannula 2.0 11/29/17 11:52 52 18 94 Nasal Cannula 2.0 Lab Results: Results Past 24 Hours Test 11/29/17 11:42 11/29/17 16:59 11/29/17 20:31 11/30/17 05:37 Range/Units Bedside Glucose 175 144 209 70-90 mg/dl White Blood Count 17.59 4.8-10.8 K/uL Red Blood Count 3.07 4.2-5.4 M/uL Hemoglobin 9.3 12.0-16.0 g/dL Hematocrit 27.6 37-47 % Mean Corpuscular Volume 89.9 80-100 fL Mean Corpuscular Hemoglobin 30.3 25-34 pg Mean Corpuscular Hemoglobin Concent 33.7 32-36 g/dl RDW Standard Deviation 50.7 36.4-46.3 fL RDW Coefficient of Variation 15.7 11.5-14.5 % Platelet Count 334 130-400 K/uL Mean Platelet Volume 8.7 7.4-10.4 fL Sodium Level 133 136-145 mmol/L Potassium Level 3.8 3.5-5.1 mmol/L Chloride Level 95 98-107 mmol/L Carbon Dioxide Level 33 21-32 mmol/L Anion Gap 4.0 3-11 mmol/L Blood Urea Nitrogen 13 7-18 mg/dl Creatinine 0.70 0.60-1.20 mg/dl Est Creatinine Clear Calc Drug Dose 48.5 ml/min Estimated GFR () 89.7 Estimated GFR (Non- 77.4 BUN/Creatinine Ratio 18.9 10-20 Random Glucose 124 70-99 mg/dl Calcium Level 8.9 8.5-10.1 mg/dl Magnesium Level 1.8 1.8-2.4 mg/dl Test 11/30/17 08:42 Range/Units Bedside Glucose 134 70-90 mg/dl
[2017-11-30] MEDS ORDERED: FUROSEMIDE INJ 40 MG in SYRINGE 0 ML IV ONE (12:00)
[2017-11-30] MEDS: CITALOPRAM 20 MG TAB PO SCH (13:21)
[2017-11-30] MEDS ORDERED: DAPTOmycin IV 300 MG in SYRINGE 0 ML IV SCH (18:00)
[2017-11-30] MEDS: ERTAPENEM IV 1,000 MG in SODIUM CHLORIDE 0.9% 50ML 50 ML IV SCH (18:07)
[2017-11-30] MEDS: DAPTOmycin IV 400 MG in SYRINGE 0 ML IV SCH (18:07)
[2017-11-30] MEDS: SIMVASTATIN 20 MG TAB PO SCH (21:48)
[2017-11-30] MEDS: ZOLPIDEM TARTRATE 5 MG TAB PO PRN (21:56)
[2017-12-01] VITALS (10 sets, daily range): BP systolic 114–134; BP diastolic 50–64; PULSE 61–88; TEMP 36.2–37.2; O2SAT 90–93
[2017-12-01] MEDS: HEPARIN SOD 5000 UNIT/0.5 ML CARP SQ SCH ×3 (00:25→22:27)
[2017-12-01 05:50] LABS: HEMATOCRIT 31.3 % (37-47)
[2017-12-01 06:20] LABS: CALCIUM 8.7 mg/dl (8.5-10.1); CREATININE 0.7 mg/dl (0.60-1.20); POTASSIUM 3.4 mmol/L (3.5-5.1)
[2017-12-01] MEDS: ALBUT/IPRATROP 3MG/0.5MG NEB 3 ML VIAL INH SCH ×4 (06:51→19:06)
[2017-12-01] MEDS: LEVETIRACETAM 500 MG TAB PO SCH ×2 (08:53→21:10)
[2017-12-01] MEDS: CYANOCOBALAMIN 100 MCG TAB (VIT B-12) PO SCH (08:54)
[2017-12-01] MEDS: MULTIVITAMIN TAB PO SCH (08:55)
[2017-12-01] MEDS: CLONIDINE HCL 0.1 MG TAB PO SCH ×2 (08:55→21:05)
[2017-12-01] MEDS: FERROUS SULFATE 325 MG TAB PO SCH ×3 (08:56→17:30)
[2017-12-01] MEDS: DOCUSATE SODIUM/SENNA 50/8.6MG TAB PO SCH (08:56)
[2017-12-01] MEDS: PANTOprazole SOD 40 MG TAB PO SCH ×2 (08:56→21:09)
[2017-12-01] MEDS: METOPROLOL TARTRATE 25 MG TAB PO SCH ×2 (08:56→21:09)
[2017-12-01] MEDS: CALCIUM 600MG + VIT D 400 IU TAB PO SCH ×2 (08:57→13:00)
[2017-12-01] MEDS: ASPIRIN 81 MG ECTAB PO SCH (08:57)
[2017-12-01] MEDS: AMLODIPINE BESYLATE 5 MG TAB PO SCH (08:57)
[2017-12-01] MEDS: CHOLECALCIFEROL 1000 INTER.UNIT TAB PO SCH (08:58)
[2017-12-01] MEDS: INSULIN ASPART 100 UNITS/ML 3 ML PEN SC SCH ×4 (09:19→21:17)
[2017-12-01] MEDS: INSULIN GLARGINE SOLOSTAR 100 UNITS/ML 3 ML PEN SC SCH ×2 (09:20→21:18)
[2017-12-01] MEDS: BOOST GLUCOSE CONTROL PO SCH ×2 (09:20→21:03)
[2017-12-01] MEDS: ACETAMINOPHEN 325 MG TAB PO PRN (10:51)
[2017-12-01] MEDS: CITALOPRAM 20 MG TAB PO SCH (13:00)
--- NOTE | 2017-12-01 16:56 | Progress Note ---
Internal Med Progress Note Date of Service: Dec 01, 2017. Provider Documentation: SUBJECTIVE: Seen and examined at bedside Very lethargic and weak today Discussed with Son in detail Subjectively feels better Intermittent cough Poor oral intake Denies chest pain OBJECTIVE: Vital Signs-as noted below Physical Exam: General Appearance:Moderately built and nourished Head: normocephalic, Atraumatic Eyes: normal inspection, EOMI, PERRL Neck: supple, Trachea midline Respiratory/Chest: B/L air entry, B/L wheezes Cardiovascular: S1, S2, No murmur Abdomen/GI:Soft, Non tender, Bowel sounds present Extremities/Musculoskelatal:normal inspection, B/L UE and LE swelling noted, RLE wound vac in place Neurologic/Psych:grossly no focal neurological deficits Skin: normal color, warm Lab data as noted below. 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 R Hip Abscess H/o R hip replacement in February 2017 Following with [place] wound care x [address]: Right hip seroma with possible abscess, infected total hip. Infected full thickness decubitus ulcer right buttock,displaced greater trochanter fracture and abductor tear s/p fall,s/p radha for displaced femoral neck fracture as per ortho S/P I&D with wound vac and drains placement I&D Cultures (+) Peptostreptococcus, Acinetobacter, Prevotella Appreciate Ortho and ID help continue Dapto and Ertapenem IV via PICC x 6 weeks total from Debridement Needs weekly CBC, complete metabolic panel, sed rate, CPK while on antibiotics Continue Wound care Acute on chronic Diastolic CHF B/L UE edema Volume overload US Doppler: No DVT Lasix PRN monitor I&O CXR reviewed Oxygen PRN Right Labial Ulcer: H/O vaginal lesion/possible vulvar neoplasm ff up with [facility] in Jul 2017 Not biopsied but presumed to be malignant Excision not recommended Referral to [facility] in [place] offered but patient not interested Consulted Manager Biostatistics 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 continue Protonix 40mg BID. monitor Hg No plans for EGD Resumed ASA Monitor Hb MARIELA on CKD III Cr elevated to 1.46 (~1.1 baseline) resolved monitor HTN: on metoprolol, amlodipine added Clonidine Stable DM II: A1c of 7.0 in February 2017 holding home meds Continue ISS, lantus Generalized seizure disorder: Stable Continue keppra Depression: on celexa Chronic dyspnea on exertion: evaluated during previous admission in February 13 deconditioning PT/OT eval Presence of mild grade 1 diastolic dysfunction on echo EKG unremarkable H/o CVA: Stable continue ASA DVT Px: Heparin SQ Code status: DNR PCP: [facility] Disposition: Plan to discharge to Rehab facility when stable Patient very deconditioned from comorbidities Very slow recovery Discussed with Son in detail Vital Signs: Date Time Temp Pulse Resp B/P (MAP) Pulse Ox O2 Delivery O2 Flow Rate FiO2 12/01/17 15:10 36.2 74 18 114/64 (81) 92 Nasal Cannula 2.0 12/01/17 14:30 66 16 92 Nasal Cannula 2.0 12/01/17 12:46 37.2 12/01/17 11:14 61 16 90 Nasal Cannula 2.0 12/01/17 09:58 Room Air 12/01/17 07:26 36.2 88 16 124/50 (74) 90 2.0 12/01/17 06:51 77 16 91 Nasal Cannula 2.0 12/01/17 00:20 Nasal Cannula 2.0 11/30/17 23:20 36.4 59 18 141/64 (89) 94 Room Air 11/30/17 19:09 60 16 93 Nasal Cannula 2.0 Lab Results: Results Past 24 Hours Test 11/30/17 20:55 12/01/17 05:16 12/01/17 07:43 12/01/17 11:46 Range/Units Bedside Glucose 191 113 161 70-90 mg/dl Hemoglobin 10.0 12.0-16.0 g/dL Hematocrit 31.3 37-47 % Sodium Level 133 136-145 mmol/L Potassium Level 3.4 3.5-5.1 mmol/L Chloride Level 92 98-107 mmol/L Carbon Dioxide Level 36 21-32 mmol/L Anion Gap 4.0 3-11 mmol/L Blood Urea Nitrogen 11 7-18 mg/dl Creatinine 0.70 0.60-1.20 mg/dl Est Creatinine Clear Calc Drug Dose 48.5 ml/min Estimated GFR () 89.7 Estimated GFR (Non- 77.4 BUN/Creatinine Ratio 16.4 10-20 Random Glucose 86 70-99 mg/dl Calcium Level 8.7 8.5-10.1 mg/dl Magnesium Level 1.7 1.8-2.4 mg/dl
[2017-12-01] MEDS ORDERED: POTASSIUM CHLORIDE 10 MEQ TABCR PO ONE (17:00)
[2017-12-01] MEDS ORDERED: FUROSEMIDE 40 MG TAB PO ONE (17:15)
[2017-12-01] MEDS: DAPTOmycin IV 400 MG in SYRINGE 0 ML IV SCH (18:56)
[2017-12-01] MEDS: ERTAPENEM IV 1,000 MG in SODIUM CHLORIDE 0.9% 50ML 50 ML IV SCH (18:56)
[2017-12-01] MEDS: MAGNESIUM OXIDE 400 MG TAB PO SCH (21:07)
[2017-12-01] MEDS: SIMVASTATIN 20 MG TAB PO SCH (21:09)
[2017-12-01] MEDS: ZOLPIDEM TARTRATE 5 MG TAB PO PRN (22:28)
[2017-12-02] VITALS (8 sets, daily range): BP systolic 129–151; BP diastolic 65–74; PULSE 62–79; TEMP 36.5–37.1; O2SAT 90–93
[2017-12-02 05:36] LABS: HEMOGLOBIN 9.3 g/dL (12.0-16.0); MEAN CELL VOLUME 89.5 fL (80-100); MEAN CORPUSCULAR HEMOGLOBIN 29.7 pg (25-34); MEAN CORPUSCULAR HGB CONC 33.2 g/dl (32-36); MEAN PLATELET VOLUME 8.2 fL (7.4-10.4); PLATELET COUNT 300 K/uL (130-400); RED CELL DISTRIBUTION WIDTH CV 16.1 % (11.5-14.5); RED CELL DISTRIBUTION WIDTH SD 51.5 fL (36.4-46.3); WHITE BLOOD COUNT 16.62 K/uL (4.8-10.8)
[2017-12-02 06:03] LABS: CALCIUM 8.7 mg/dl (8.5-10.1); CREATININE 0.74 mg/dl (0.60-1.20)
[2017-12-02] MEDS: ALBUT/IPRATROP 3MG/0.5MG NEB 3 ML VIAL INH SCH ×4 (06:50→19:10)
[2017-12-02] MEDS: INSULIN ASPART 100 UNITS/ML 3 ML PEN SC SCH ×4 (08:00→20:59)
[2017-12-02] MEDS: FERROUS SULFATE 325 MG TAB PO SCH ×3 (09:47→18:08)
[2017-12-02] MEDS: CALCIUM 600MG + VIT D 400 IU TAB PO SCH ×2 (09:48→13:54)
[2017-12-02] MEDS: CHOLECALCIFEROL 1000 INTER.UNIT TAB PO SCH (09:48)
[2017-12-02] MEDS: MULTIVITAMIN TAB PO SCH (09:48)
[2017-12-02] MEDS: CLONIDINE HCL 0.1 MG TAB PO SCH ×2 (09:48→20:55)
[2017-12-02] MEDS: METOPROLOL TARTRATE 25 MG TAB PO SCH ×2 (09:48→20:55)
[2017-12-02] MEDS: LEVETIRACETAM 500 MG TAB PO SCH ×2 (09:49→20:56)
[2017-12-02] MEDS: ASPIRIN 81 MG ECTAB PO SCH (09:49)
[2017-12-02] MEDS: AMLODIPINE BESYLATE 5 MG TAB PO SCH (09:50)
[2017-12-02] MEDS: MAGNESIUM OXIDE 400 MG TAB PO SCH ×2 (09:50→20:55)
[2017-12-02] MEDS: PANTOprazole SOD 40 MG TAB PO SCH ×2 (09:51→20:55)
[2017-12-02] MEDS: DOCUSATE SODIUM/SENNA 50/8.6MG TAB PO SCH (09:51)
[2017-12-02] MEDS: CYANOCOBALAMIN 100 MCG TAB (VIT B-12) PO SCH (09:51)
[2017-12-02] MEDS: INSULIN GLARGINE SOLOSTAR 100 UNITS/ML 3 ML PEN SC SCH ×2 (09:54→20:52)
[2017-12-02] MEDS: BOOST GLUCOSE CONTROL PO SCH ×2 (09:55→20:54)
[2017-12-02] MEDS: CITALOPRAM 20 MG TAB PO SCH (13:54)
[2017-12-02] MEDS: HEPARIN SOD 5000 UNIT/0.5 ML CARP SQ SCH (14:19)
--- NOTE | 2017-12-02 14:24 | Progress Note ---
Internal Med Progress Note Date of Service: Dec 02, 2017. Provider Documentation: SUBJECTIVE: Seen and examined at bedside States having Hip pain and vaginal pain More alert today Discussed with Son in detail, Will consult palliative care to address goals of care Intermittent cough Poor oral intake Denies chest pain OBJECTIVE: Vital Signs-as noted below Physical Exam: General Appearance:Moderately built and nourished Head: normocephalic, Atraumatic Eyes: normal inspection, EOMI, PERRL Neck: supple, Trachea midline Respiratory/Chest: B/L air entry, B/L wheezes Cardiovascular: S1, S2, No murmur Abdomen/GI:Soft, Non tender, Bowel sounds present Extremities/Musculoskelatal:normal inspection, B/L UE and LE swelling noted, RLE wound vac in place Neurologic/Psych:grossly no focal neurological deficits Skin: normal color, warm Lab data as noted below. 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 R Hip Abscess H/o R hip replacement in February 2017 Following with [place] wound care x [address]: Right hip seroma with possible abscess, infected total hip. Infected full thickness decubitus ulcer right buttock,displaced greater trochanter fracture and abductor tear s/p fall,s/p radha for displaced femoral neck fracture as per ortho S/P I&D with wound vac and drains placement I&D Cultures (+) Peptostreptococcus, Acinetobacter, Prevotella Appreciate Ortho and ID help continue Dapto and Ertapenem IV via PICC x 6 weeks total from Debridement Needs weekly CBC, complete metabolic panel, sed rate, CPK while on antibiotics Continue Wound care Pain control Acute on chronic Diastolic CHF B/L UE edema Volume overload US Doppler: No DVT Lasix PRN monitor I&O CXR reviewed Oxygen PRN Right Labial Ulcer: H/O vaginal lesion/possible vulvar neoplasm ff up with [facility] in Jul 2017 Not biopsied but presumed to be malignant Excision not recommended 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 continue Protonix 40mg BID. monitor Hg No plans for EGD Resumed ASA Monitor Hb MARIELA on CKD III Cr elevated to 1.46 (~1.1 baseline) resolved monitor HTN: on metoprolol, amlodipine added Clonidine Stable DM II: A1c of 7.0 in February 2017 holding home meds Continue ISS, lantus Generalized seizure disorder: Stable Continue keppra Depression: on celexa Chronic dyspnea on exertion: evaluated during previous admission in February 13 deconditioning PT/OT eval Presence of mild grade 1 diastolic dysfunction on echo EKG unremarkable H/o CVA: Stable continue ASA DVT Px: Heparin SQ Code status: DNR PCP: [facility] Disposition: Plan to discharge to Rehab facility when stable Patient very deconditioned from comorbidities Very slow recovery Discussed with Son in detail Will involve palliative care to address goals of care Vital Signs: Date Time Temp Pulse Resp B/P (MAP) Pulse Ox O2 Delivery O2 Flow Rate FiO2 12/02/17 11:24 64 16 91 Nasal Cannula 2.0 12/02/17 07:57 Nasal Cannula 2.0 12/02/17 07:30 36.5 79 16 151/66 (94) 90 2.0 12/02/17 06:50 66 16 90 Nasal Cannula 2.0 12/01/17 23:30 92 Nasal Cannula 2.0 12/01/17 23:15 36.6 61 18 134/64 (87) 92 Nasal Cannula 2.0 12/01/17 21:06 69 123/63 (83) 12/01/17 19:07 64 16 93 Nasal Cannula 2.0 12/01/17 15:22 Nasal Cannula 2.0 12/01/17 15:10 36.2 74 18 114/64 (81) 92 Nasal Cannula 2.0 12/01/17 14:30 66 16 92 Nasal Cannula 2.0 Lab Results: Results Past 24 Hours Test 12/01/17 17:15 12/01/17 20:47 12/02/17 05:17 12/02/17 08:08 Range/Units Bedside Glucose 170 185 108 70-90 mg/dl White Blood Count 16.62 4.8-10.8 K/uL Red Blood Count 3.13 4.2-5.4 M/uL Hemoglobin 9.3 12.0-16.0 g/dL Hematocrit 28.0 37-47 % Mean Corpuscular Volume 89.5 80-100 fL Mean Corpuscular Hemoglobin 29.7 25-34 pg Mean Corpuscular Hemoglobin Concent 33.2 32-36 g/dl RDW Standard Deviation 51.5 36.4-46.3 fL RDW Coefficient of Variation 16.1 11.5-14.5 % Platelet Count 300 130-400 K/uL Mean Platelet Volume 8.2 7.4-10.4 fL Sodium Level 132 136-145 mmol/L Potassium Level 4.0 3.5-5.1 mmol/L Chloride Level 93 98-107 mmol/L Carbon Dioxide Level 35 21-32 mmol/L Anion Gap 4.0 3-11 mmol/L Blood Urea Nitrogen 15 7-18 mg/dl Creatinine 0.74 0.60-1.20 mg/dl Est Creatinine Clear Calc Drug Dose 46.7 ml/min Estimated GFR () 83.8 Estimated GFR (Non- 72.3 BUN/Creatinine Ratio 20.6 10-20 Random Glucose 83 70-99 mg/dl Calcium Level 8.7 8.5-10.1 mg/dl Magnesium Level 1.9 1.8-2.4 mg/dl Test 12/02/17 11:52 Range/Units Bedside Glucose 164 70-90 mg/dl
[2017-12-02] MEDS ORDERED: TRAMADOL HCL 50 MG TAB PO PRN (14:30)
[2017-12-02] MEDS ORDERED: FUROSEMIDE INJ 40 MG in SYRINGE 0 ML IV ONE (14:30)
[2017-12-02] MEDS: DAPTOmycin IV 400 MG in SYRINGE 0 ML IV SCH (18:17)
[2017-12-02] MEDS: ERTAPENEM IV 1,000 MG in SODIUM CHLORIDE 0.9% 50ML 50 ML IV SCH (18:49)
[2017-12-02] MEDS: SIMVASTATIN 20 MG TAB PO SCH (20:55)
[2017-12-02] MEDS: ZOLPIDEM TARTRATE 5 MG TAB PO PRN (21:04)
[2017-12-03] VITALS (9 sets, daily range): BP systolic 130–152; BP diastolic 62–70; PULSE 59–89; TEMP 36.2–36.8; O2SAT 92–96
[2017-12-03] MEDS: HEPARIN SOD 5000 UNIT/0.5 ML CARP SQ SCH ×2 (01:04→13:03)
[2017-12-03 06:13] LABS: CALCIUM 8.6 mg/dl (8.5-10.1); CREATININE 0.72 mg/dl (0.60-1.20); POTASSIUM 3.7 mmol/L (3.5-5.1)
[2017-12-03] MEDS: ALBUT/IPRATROP 3MG/0.5MG NEB 3 ML VIAL INH SCH ×4 (07:06→19:40)
[2017-12-03] MEDS: INSULIN ASPART 100 UNITS/ML 3 ML PEN SC SCH ×4 (09:00→20:53)
[2017-12-03] MEDS: LEVETIRACETAM 500 MG TAB PO SCH ×2 (09:06→20:35)
[2017-12-03] MEDS: METOPROLOL TARTRATE 25 MG TAB PO SCH ×2 (09:07→20:34)
[2017-12-03] MEDS: CALCIUM 600MG + VIT D 400 IU TAB PO SCH ×2 (09:07→13:04)
[2017-12-03] MEDS: CLONIDINE HCL 0.1 MG TAB PO SCH ×2 (09:07→20:35)
[2017-12-03] MEDS: MULTIVITAMIN TAB PO SCH (09:07)
[2017-12-03] MEDS: FERROUS SULFATE 325 MG TAB PO SCH ×3 (09:07→17:54)
[2017-12-03] MEDS: ASPIRIN 81 MG ECTAB PO SCH (09:08)
[2017-12-03] MEDS: PANTOprazole SOD 40 MG TAB PO SCH ×2 (09:08→20:35)
[2017-12-03] MEDS: AMLODIPINE BESYLATE 5 MG TAB PO SCH (09:08)
[2017-12-03] MEDS: CYANOCOBALAMIN 100 MCG TAB (VIT B-12) PO SCH (09:08)
[2017-12-03] MEDS: DOCUSATE SODIUM/SENNA 50/8.6MG TAB PO SCH (09:08)
[2017-12-03] MEDS: CHOLECALCIFEROL 1000 INTER.UNIT TAB PO SCH (09:08)
[2017-12-03] MEDS: MAGNESIUM OXIDE 400 MG TAB PO SCH ×2 (09:08→20:35)
[2017-12-03] MEDS: BOOST GLUCOSE CONTROL PO SCH ×2 (09:10→20:35)
[2017-12-03] MEDS: INSULIN GLARGINE SOLOSTAR 100 UNITS/ML 3 ML PEN SC SCH ×2 (09:11→20:53)
[2017-12-03] MEDS: CITALOPRAM 20 MG TAB PO SCH (13:04)
--- NOTE | 2017-12-03 14:49 | Palliative Care Consultation ---
Consultation Date of Consultation: Dec 03, 2017. Requesting Physician: Dr Talley Attending Physician: Dr Talley Reason for Consultation: Establish Goals of Care History of Present Illness Pt is an 87 yo female who fell in February and sustained a R hip fx. She underwent a THR. She fell after d/c and developed a seroma. She later developed a pressure ulcer and started having a large amount of drainage from wound. Pt was seen in wound clinic , but continued to worsen. She was admitted on 11/16 for surgical debridement and removal of hardware. Pt now with wound vac in place - draining serosanguineous fluid. Pt is frail , with poor PO intake and has vulvar pain when sitting up due to Vulvar Cancer. Pt had Tramadol added to her meds for pain , but has not received any as yet. Pt reports , she feels she is eating "pretty well", but PO intake and UOP is decreasing. Pt's son , Tyree , is her POA and is also a patient of mine in the outpt Palliative clinic. Pt would like to return home, but lives alone and her son and DIL are not able to care for her. Pt with multiple comorbidities including DM, HN, HLD, CKD III, cerebrovascular dz s/p CVA with no residual deficits, anxiety/depression, osteoporosis, PVD and h/o seizure disorder after CVA. Pt denies pain when lying flat in bed, pain only when sitting up, pt not able to rate pain, but she does not tolerate sitting up for even short periods of time, pain is described as burning and topical salve " helps". Pt has newly diagnosed Vulvar cancer. Past Medical/Surgical History Medical History: DM 2, HTN/HLD, CKD III, cerebrovascular dz - s/p CVA, osteoporosis, PVD, seizure disorder post CVA and newly dx Vulvar Ca. Surgical History: L THR, R THR - s/p removal of hardware and debridement of pressure ulcer, cataract, appendectomy, cholecystectomy Family History + for cancer and CVA Social History Smoking Status: Never Smoker History of Alcohol Use: No Drug Use: none Marital Status: Housing Status: lives alone Occupation Status: retired Review of Systems Constitutional: No fever Eyes: No worsening of vision ENT: No hearing loss Respiratory: + cough (wet, loose) Cardiac: No chest pain, No edema Abdomen: No pain Musculoskeletal: + problem reported (R hip wound ) Female : + problem reported (pain when sitting - vulvar ca) Neurologic: + weakness Psychiatric: + problem reported (depression/anxiety controlled on Celexa) Heme: + problem reported (anemia) Endo: + fatigue Skin: No rash Allergies Coded Allergies: Amoxicillin (Verified Allergy, Severe, CVA SYMPTOMS, 11/16/17) Penicillins (Unverified Allergy, Unknown, POSS CX OF CVA, 11/16/17) Risedronate (Unverified Allergy, Unknown, UNKNOWN, 11/16/17) Diphenhydramine (Unverified Adverse Reaction, Unknown, N&V, 11/16/17) Prednisone (Unverified Adverse Reaction, Unknown, HIGH BS, 11/16/17) Medications Current Inpatient Medications Medications (Trade) Dose Ordered Sig/Zaina Route Start Time Stop Time Status Last Admin Dose Admin Ondansetron HCl (Zofran Inj) 4 mg Q6H PRN IV 11/16/17 11:45 12/16/17 11:44 Insulin Glargine (Lantus Solostar Pen) 6 units Q12 SC 11/16/17 21:00 12/16/17 20:59 12/03/17 09:11 6 UNITS Glucose (Glucose 40% Gel) 15-30 GRAMS 15 GRAMS... UD PRN PO 11/16/17 12:30 12/16/17 12:29 Glucose (Glucose Chew Tab) 4-8 Tablets 4 Tabl... UD PRN PO 11/16/17 12:30 12/16/17 12:29 Dextrose (Dextrose 50% 50ML Syringe) 25-50ML OF 50% DW IV FOR... UD PRN IV 11/16/17 12:30 12/16/17 12:29 Glucagon (Glucagon Inj) 1 mg UD PRN SQ 11/16/17 12:30 12/16/17 12:29 Cholecalciferol (Vitamin D Tab) 1,000 inter.unit DAILY PO 11/17/17 09:00 12/17/17 08:59 12/03/17 09:08 1,000 INTER.UNIT Cyanocobalamin (Vitamin B-12 Tab) 100 mcg DAILY PO 11/17/17 09:00 12/17/17 08:59 12/03/17 09:08 100 MCG Levetiracetam (Keppra Tab) 750 mg BID PO 11/16/17 21:00 12/16/17 20:59 12/03/17 09:06 750 MG Metoprolol Tartrate (Lopressor Tab) 25 mg BID PO 11/16/17 21:00 12/16/17 20:59 12/03/17 09:07 25 MG Simvastatin (Zocor Tab) 20 mg QPM PO 11/16/17 21:00 12/16/17 20:59 12/02/17 20:55 20 MG Zolpidem Tartrate (Ambien Tab) 5 mg HS PRN PO 11/16/17 12:45 12/16/17 12:44 12/02/17 21:04 5 MG Amlodipine Besylate (Norvasc Tab) 10 mg QAM PO 11/17/17 09:00 12/17/17 08:59 12/03/17 09:08 10 MG Polyethylene (Miralax Powder Packet) 17 gm DAILY PRN PO 11/16/17 15:00 12/16/17 14:59 11/23/17 18:05 17 GM Ferrous Sulfate (Feosol Tab) 325 mg TIDM PO 11/16/17 17:45 12/16/17 17:44 12/03/17 13:04 325 MG Citalopram Hydrobromide (celeXA TAB) 20 mg DAILY@1330 PO 11/18/17 13:30 12/18/17 13:29 12/03/17 13:04 20 MG Calcium/Vitamin D (Caltrate Plus Tab) 1 tab BID@0900,1330 PO 11/18/17 09:00 12/18/17 08:59 12/03/17 13:04 1 TAB Magnesium Hydroxide (Milk Of Magnesia Susp) 30 ml Q6H PRN PO 11/18/17 14:45 12/18/17 14:44 11/24/17 09:03 30 ML Al Hydrox/Mg Hydrox/Simethicone (Maalox Max Susp) 15 ml Q4H PRN PO 11/18/17 14:45 12/18/17 14:44 Multivitamins (Multivitamin Tab) 1 tab QAM PO 11/19/17 09:00 12/19/17 08:59 12/03/17 09:07 1 TAB Insulin Aspart (novoLOG ASPART) SLIDING SCALE If C... ACHS SC 11/19/17 08:00 12/19/17 07:59 12/03/17 13:02 3 UNITS Acetaminophen (Tylenol Tab) tylenol 325mg tab 1-2 ... Q4H PRN PO 11/19/17 15:30 12/16/17 11:44 12/01/17 10:51 650 MG Bisacodyl (Dulcolax Supp) 10 mg DAILY PRN LA 11/21/17 10:00 12/21/17 09:59 11/24/17 11:20 10 MG Folic Acid (Folvite Tab) 1 mg QAM PO 11/22/17 09:00 12/22/17 08:59 12/03/17 09:08 1 MG Enteral Nutritional Formula (Boost Glucose Control) 1 can BID PO 11/21/17 21:00 12/21/17 20:59 12/03/17 09:10 1 CAN Clonidine HCl (Catapres Tab) 0.1 mg Q6H PRN PO 11/21/17 19:15 12/21/17 19:14 Clonidine HCl (Catapres Tab) 0.1 mg BID PO 11/23/17 21:00 12/23/17 20:59 12/03/17 09:07 0.1 MG Senna/Docusate Sodium (Senokot S Tab) 1 tab QAM PO 11/25/17 09:00 12/25/17 08:59 12/03/17 09:08 1 TAB Aspirin (Ecotrin Tab) 81 mg DAILY PO 11/25/17 09:00 12/23/17 08:59 12/03/17 09:08 81 MG Heparin Sodium (Porcine) (Heparin Sq 5000 Unit/0.5ml) 5,000 unit Q12H SQ 11/24/17 11:15 12/24/17 11:14 12/03/17 13:03 5,000 UNIT Pantoprazole Sodium (Protonix Tab) 40 mg BID PO 11/24/17 21:00 12/24/17 20:59 12/03/17 09:08 40 MG Ertapenem 1000 mg/ Sodium Chloride 60 ml @ 120 mls/hr Q24H IV 11/25/17 18:30 01/04/18 18:29 12/02/17 18:49 120 MLS/HR Heparin Sodium (Porcine) (Heparin 10 Unit/ ml 5 ml Flush) 5 ml PRN PRN FLUSH 11/27/17 16:45 12/27/17 16:44 12/03/17 08:07 5 ML Albuterol/ Ipratropium (Duoneb) 3 ml QIDR INH 11/28/17 20:00 12/28/17 19:59 12/03/17 11:04 3 ML Daptomycin 400 mg/ Syringe 8 ml @ 3 mls/min Q24H IV 11/30/17 18:00 01/11/18 13:29 12/02/17 18:17 3 MLS/MIN Magnesium Oxide (Mag-Ox Tab) 400 mg BID PO 12/01/17 21:00 12/04/17 20:59 12/03/17 09:08 400 MG Tramadol HCl (Ultram Tab) 50 mg Q6H PRN PO 12/02/17 14:30 01/01/18 14:29 Physical Exam Date Time Temp Pulse Resp B/P (MAP) Pulse Ox O2 Delivery O2 Flow Rate FiO2 12/03/17 11:04 59 16 94 Nasal Cannula 2.0 12/03/17 08:32 Nasal Cannula 2.0 12/03/17 07:30 36.2 68 16 136/70 (92) 92 2.0 12/03/17 07:12 63 16 95 Mask 2.0 12/03/17 01:00 Oxymask 2.0 12/02/17 23:51 37.1 67 16 149/74 (99) 93 Oxymask 2.0 12/02/17 20:48 72 146/65 (92) 12/02/17 19:10 62 16 90 Mask 2.0 12/02/17 15:30 91 Oxymask 2.0 12/02/17 15:15 36.5 62 16 129/72 (91) 91 Oxymask 2.0 General Appearance: no apparent distress Eyes: EOMI ENT: hearing grossly normal Neck: no JVD Respiratory: no respiratory distress, + pertinent finding (wet rhonchi bilaterally, some improvement with cough) Cardiovascular: regular rate, rhythm, no edema Abdomen: non tender, soft Musculoskeletal: pertinent finding (R hip wound vac in place, generalized weakness) Neurologic/Psychiatric: + motor weakness Skin: normal color Laboratory Results Last 24 Hours Test 12/02/17 17:02 12/02/17 20:27 12/03/17 05:26 12/03/17 08:05 Bedside Glucose 96 mg/dl 133 mg/dl 129 mg/dl Sodium Level 132 mmol/L Potassium Level 3.7 mmol/L Chloride Level 91 mmol/L Carbon Dioxide Level 36 mmol/L Anion Gap 5.0 mmol/L Blood Urea Nitrogen 13 mg/dl Creatinine 0.72 mg/dl Est Creatinine Clear Calc Drug Dose 48.0 ml/min Estimated GFR () 86.7 Estimated GFR (Non- 74.8 BUN/Creatinine Ratio 17.6 Random Glucose 105 mg/dl Calcium Level 8.6 mg/dl Magnesium Level 2.0 mg/dl Test 12/03/17 12:13 Bedside Glucose 199 mg/dl Assessment & Plan Palliative Performance Scale: 40 % 87 yo female with R hip wound , s/p hardware removal and debridement. Pt with debility and weakness - PT limited due to pain from Vulvar cancer - plan to meet with son and DIL at 1000 tomorrow to discuss options. - Pain - due to vulvar cancer - would like to see response to Tramadol, pt high fall risk - would like to avoid opioids - Weakness - due to general debility and acute illness - DM, HTN, CKD , anxiety and depression - all well controlled on current meds - D/C planning - will discuss options with case management and meet with family to discuss Goals of Care - possible Hospice referral Counseling and Coordination Total time 50 min with > 50 % of time spent discussing treatment options and initiating a plan of care with pt and family.
--- NOTE | 2017-12-03 16:34 | Progress Note ---
Internal Med Progress Note Date of Service: Dec 03, 2017. Provider Documentation: SUBJECTIVE: Seen and examined at bedside Complains of vaginal pain No other complains Discussed with palliative care today Less cough Very weak Poor oral intake Denies chest pain, SOB OBJECTIVE: Vital Signs-as noted below Physical Exam: General Appearance:Moderately built and nourished Head: normocephalic, Atraumatic Eyes: normal inspection, EOMI, PERRL Neck: supple, Trachea midline Respiratory/Chest: B/L air entry, coarse breath sounds Cardiovascular: S1, S2, No murmur Abdomen/GI:Soft, Non tender, Bowel sounds present Extremities/Musculoskelatal:normal inspection, B/L UE and LE swelling noted, RLE wound vac in place Neurologic/Psych:grossly no focal neurological deficits Skin: normal color, warm Lab data as noted below. 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 R Hip Abscess H/o R hip replacement in February 2017 Following with [place] wound care x [address]: Right hip seroma with possible abscess, infected total hip. Infected full thickness decubitus ulcer right buttock,displaced greater trochanter fracture and abductor tear s/p fall,s/p radha for displaced femoral neck fracture as per ortho S/P I&D with wound vac and drains placement I&D Cultures (+) Peptostreptococcus, Acinetobacter, Prevotella Appreciate Ortho and ID help continue Dapto and Ertapenem IV via PICC x 6 weeks total from Debridement Needs weekly CBC, complete metabolic panel, sed rate, CPK while on antibiotics Continue Wound care Pain control Acute on chronic garde I Diastolic CHF B/L UE edema Volume overload US Doppler: No DVT Lasix PRN monitor I&O CXR reviewed Oxygen PRN Right Labial Ulcer: H/O vaginal lesion/possible vulvar neoplasm ff up with [facility] in Jul 2017 Not biopsied but presumed to be malignant Excision not recommended Referral to etiquette coach onc in [place] offered but patient not interested Consulted [employer] Operator likely Malignant spread of Vulvar lesion patient declining biopsy and further evaluation Appreciate palliative care Input: Plan to address goals of care tomorrow with family at 10:00AM Anemia likely of chronic disease vs post operative S/P 3 units PRBC Hg stable FOBT (+) Fe and Folate low, replaced GI consulted, FOBT positive due to serous drainage from labial ulcer? continue Protonix 40mg BID. monitor Hg No plans for EGD Resumed ASA Monitor Hb MARIELA on CKD III Cr elevated to 1.46 (~1.1 baseline) resolved monitor HTN: on metoprolol, amlodipine added Clonidine Stable DM II: A1c of 7.0 in February 2017 holding home meds Continue ISS, lantus Generalized seizure disorder: Stable Continue keppra Depression: on celexa Chronic dyspnea on exertion: evaluated during previous admission in February 13 deconditioning PT/OT eval Presence of mild grade 1 diastolic dysfunction on echo EKG unremarkable H/o CVA: Stable continue ASA DVT Px: Heparin SQ Code status: DNR PCP: [facility] Disposition: Plan to discharge to Rehab facility when stable Patient very deconditioned from comorbidities Very slow recovery Discussed with Son in detail Palliative care to address goals of care tomorrow Vital Signs: Date Time Temp Pulse Resp B/P (MAP) Pulse Ox O2 Delivery O2 Flow Rate FiO2 12/03/17 16:02 36.8 69 17 138/62 (87) 96 Nasal Cannula 3.0 12/03/17 15:30 93 Nasal Cannula 3.0 12/03/17 14:55 68 16 93 Nasal Cannula 2.0 12/03/17 11:04 59 16 94 Nasal Cannula 2.0 12/03/17 08:32 Nasal Cannula 2.0 12/03/17 07:30 36.2 68 16 136/70 (92) 92 2.0 12/03/17 07:12 63 16 95 Mask 2.0 12/03/17 01:00 Oxymask 2.0 12/02/17 23:51 37.1 67 16 149/74 (99) 93 Oxymask 2.0 12/02/17 20:48 72 146/65 (92) 12/02/17 19:10 62 16 90 Mask 2.0 Lab Results: Results Past 24 Hours Test 12/02/17 17:02 12/02/17 20:27 12/03/17 05:26 12/03/17 08:05 Range/Units Bedside Glucose 96 133 129 70-90 mg/dl Sodium Level 132 136-145 mmol/L Potassium Level 3.7 3.5-5.1 mmol/L Chloride Level 91 98-107 mmol/L Carbon Dioxide Level 36 21-32 mmol/L Anion Gap 5.0 3-11 mmol/L Blood Urea Nitrogen 13 7-18 mg/dl Creatinine 0.72 0.60-1.20 mg/dl Est Creatinine Clear Calc Drug Dose 48.0 ml/min Estimated GFR () 86.7 Estimated GFR (Non- 74.8 BUN/Creatinine Ratio 17.6 10-20 Random Glucose 105 70-99 mg/dl Calcium Level 8.6 8.5-10.1 mg/dl Magnesium Level 2.0 1.8-2.4 mg/dl Test 12/03/17 12:13 Range/Units Bedside Glucose 199 70-90 mg/dl
[2017-12-03] MEDS ORDERED: FUROSEMIDE 40 MG TAB PO ONE (16:45)
[2017-12-03] MEDS: DAPTOmycin IV 400 MG in SYRINGE 0 ML IV SCH (18:14)
[2017-12-03] MEDS: ERTAPENEM IV 1,000 MG in SODIUM CHLORIDE 0.9% 50ML 50 ML IV SCH (19:10)
[2017-12-03] MEDS: SIMVASTATIN 20 MG TAB PO SCH (20:34)
[2017-12-03] MEDS: ZOLPIDEM TARTRATE 5 MG TAB PO PRN (20:34)
[2017-12-04] VITALS (8 sets, daily range): BP systolic 117–144; BP diastolic 55–69; PULSE 62–80; TEMP 36.4–37.6; O2SAT 90–97
[2017-12-04 06:41] LABS: HEMATOCRIT 28.3 % (37-47); HEMOGLOBIN 9.4 g/dL (12.0-16.0); MEAN CELL VOLUME 89.3 fL (80-100); MEAN CORPUSCULAR HEMOGLOBIN 29.7 pg (25-34); MEAN CORPUSCULAR HGB CONC 33.2 g/dl (32-36); MEAN PLATELET VOLUME 9.2 fL (7.4-10.4); PLATELET COUNT 334 K/uL (130-400); RED CELL DISTRIBUTION WIDTH SD 50.8 fL (36.4-46.3); WHITE BLOOD COUNT 21.05 K/uL (4.8-10.8)
[2017-12-04 07:15] LABS: CALCIUM 8.3 mg/dl (8.5-10.1); CREATININE 0.74 mg/dl (0.60-1.20); POTASSIUM 3.5 mmol/L (3.5-5.1)
[2017-12-04] MEDS: ALBUT/IPRATROP 3MG/0.5MG NEB 3 ML VIAL INH SCH ×4 (07:32→20:38)
[2017-12-04] MEDS ORDERED: POTASSIUM CHLORIDE 20 MEQ TABCR PO ONE (08:30)
[2017-12-04] MEDS: BOOST GLUCOSE CONTROL PO SCH ×2 (09:00→21:28)
[2017-12-04] MEDS: INSULIN ASPART 100 UNITS/ML 3 ML PEN SC SCH ×4 (09:51→21:21)
[2017-12-04] MEDS: INSULIN GLARGINE SOLOSTAR 100 UNITS/ML 3 ML PEN SC SCH ×2 (09:51→21:21)
[2017-12-04] MEDS: AMLODIPINE BESYLATE 5 MG TAB PO SCH (09:53)
[2017-12-04] MEDS: CHOLECALCIFEROL 1000 INTER.UNIT TAB PO SCH (09:54)
[2017-12-04] MEDS: FERROUS SULFATE 325 MG TAB PO SCH ×3 (09:54→17:54)
[2017-12-04] MEDS: CALCIUM 600MG + VIT D 400 IU TAB PO SCH ×2 (09:54→13:23)
[2017-12-04] MEDS: ASPIRIN 81 MG ECTAB PO SCH (09:55)
[2017-12-04] MEDS: CLONIDINE HCL 0.1 MG TAB PO SCH ×2 (09:55→21:09)
[2017-12-04] MEDS: LEVETIRACETAM 500 MG TAB PO SCH (09:55)
[2017-12-04] MEDS: PANTOprazole SOD 40 MG TAB PO SCH ×2 (09:56→21:11)
[2017-12-04] MEDS: METOPROLOL TARTRATE 25 MG TAB PO SCH ×2 (09:56→21:10)
[2017-12-04] MEDS: CYANOCOBALAMIN 100 MCG TAB (VIT B-12) PO SCH (09:56)
[2017-12-04] MEDS: DOCUSATE SODIUM/SENNA 50/8.6MG TAB PO SCH (09:56)
[2017-12-04] MEDS: MAGNESIUM OXIDE 400 MG TAB PO SCH (09:56)
[2017-12-04] MEDS: MULTIVITAMIN TAB PO SCH (09:57)
--- NOTE | 2017-12-04 10:44 | Palliative Care Progress Note ---
Palliative Care Progress Note Date of Service Dec 04, 2017. Subjective Pt evaluation today including: conversation w/ patient, conversation w/ family , physical exam, chart review, conversation w/ senior health consultant, review of inpatient medication list Pain: Pain level " OK", only c/o vulvar pain when upright. PO Intake: poor Voiding: krueger catheter in place (krueger for comfort due to Vulvar cancer) Review of Systems Constitutional: No fever, No chills Eyes: No worsening of vision ENT: No hearing loss Respiratory: + cough, + sputum, + shortness of breath (with exertion) Cardiac: No chest pain, No edema Abdomen: No pain, No nausea Musculoskeletal: + joint pain (diffuse arthritis ) Female : + problem reported (vulvar cancer) Neurologic: + weakness, + balance problems Heme: No abnormal bleeding/bruising Endo: + fatigue Skin: + problem reported (R hip wound with wound vac in place) Objective Vital Signs Date Time Temp Pulse Resp B/P (MAP) Pulse Ox O2 Delivery O2 Flow Rate FiO2 12/04/17 07:34 37.6 80 22 117/55 (75) 90 Oxymask 5.0 12/04/17 07:32 69 16 93 Nasal Cannula 2.0 12/03/17 23:55 Nasal Cannula 2.0 12/03/17 22:31 36.8 63 16 152/66 (94) 92 Nasal Cannula 3.0 12/03/17 20:21 72 130/62 (84) 12/03/17 19:40 89 16 96 Nasal Cannula 2.0 12/03/17 16:02 36.8 69 17 138/62 (87) 96 Nasal Cannula 3.0 12/03/17 15:30 93 Nasal Cannula 3.0 12/03/17 14:55 68 16 93 Nasal Cannula 2.0 12/03/17 11:04 59 16 94 Nasal Cannula 2.0 Physical Exam General Appearance: no apparent distress Eyes: EOMI ENT: hearing grossly normal Neck: no JVD Respiratory/Chest: no respiratory distress, + crackles, + pertinent finding ( diminished BS) Cardiovascular: regular rate, rhythm Abdomen: non tender, soft Extremities: + pertinent finding (generalized weakness) Neurologic/Psychiatric: alert, + motor weakness Skin: warm/dry Laboratory Results Last 24 Hours Test 12/03/17 12:13 12/03/17 17:12 12/03/17 20:47 12/04/17 05:25 Bedside Glucose 199 mg/dl 185 mg/dl 181 mg/dl White Blood Count 21.05 K/uL Red Blood Count 3.17 M/uL Hemoglobin 9.4 g/dL Hematocrit 28.3 % Mean Corpuscular Volume 89.3 fL Mean Corpuscular Hemoglobin 29.7 pg Mean Corpuscular Hemoglobin Concent 33.2 g/dl RDW Standard Deviation 50.8 fL RDW Coefficient of Variation 16.0 % Platelet Count 334 K/uL Mean Platelet Volume 9.2 fL Sodium Level 132 mmol/L Potassium Level 3.5 mmol/L Chloride Level 90 mmol/L Carbon Dioxide Level 37 mmol/L Anion Gap 5.0 mmol/L Blood Urea Nitrogen 12 mg/dl Creatinine 0.74 mg/dl Est Creatinine Clear Calc Drug Dose 46.2 ml/min Estimated GFR () 83.8 Estimated GFR (Non- 72.3 BUN/Creatinine Ratio 16.5 Random Glucose 60 mg/dl Calcium Level 8.3 mg/dl Magnesium Level 2.1 mg/dl Total Creatine Kinase 40 U/L Assessment and Plan (1) Abscess of right hip Status: Acute Assessment & Plan: Wound clean base , wound vac in place (2) Depression Status: Chronic Assessment & Plan: Controlled on Celexa (3) Cerebrovascular disease Status: Chronic Assessment & Plan: no residual deficits, on ASA (4) Anxiety disorder Status: Chronic Assessment & Plan: Controlled on Celexa (5) Pain due to neoplasm Assessment & Plan: Trial of Tramadol for pain, "donut" pillow to relieve pressure on vulvar area Family and pt wish to pursue rehab at , pt's goal is to return home. Palliative Performance Scale: 40 % Continued [facility] stay due to: inadequate oral pain control, ambulation difficulties Discharge planning: rehab hospital Counseling and Coordination Total time, 40 min with > 50 % of time spent at bedside discussing options and goals of care.
[2017-12-04] MEDS ORDERED: TRAMADOL HCL 50 MG TAB PO PRN (11:00)
--- NOTE | 2017-12-04 11:04 | Progress Note ---
Progress Note Date of Service Dec 04, 2017. Progress Note Subjective: Annette brody was called on 12/04/17 in the AM. As per CNAs, patient was being cleaned when she became minimally responsive while her eyes were opened. Code was called. MD arrived at bedside. Patient awake and responsive. There was no apparent loss of consciousness based on history and patient's alertness to rapid response team. Bed side vitals 129/61, HR 74, 89% saturation on nasal cannula, Temp 37.6 C, glucose above 140 Physical Exam General: awake, alert, verbal, denies acute pain Lungs: on nasal cannula, fair air entry, lung exam however is not clear to auscultation, lungs sounds suggestive of fluid Heart: Regular rate Abdomen: soft, nontender, + bowel sounds Extremities: wound vac over right thigh : krueger Plan: CXR ordered as patient's lung sounds suggestive of fluid overload, may need additional diuresis, however will need to monitor for blood pressure, orthostasis while on diuretics, have reduced tramadol 50mg prn to 25 mg prn to minimize sedative side effects CXR imaging returns today with worsening left lower lobe airspace opacities, suspicious for pneumonia. Patient given additional 40 mg IV x 1 in case CXR findings secondary to fluid overload for which patient has been receiving diuresis of Lasix from previous hospitalist physician for Acute on chronic garde I Diastolic CHF. will obtain BNP and 2D echocardiogram to rule out acute systolic CHF Given that patient has been on multiple days with ertapenem and daptomycin primarily for hip/thigh infection (H/o R hip replacement in February 2017 , continue Dapto and Ertapenem IV via PICC x 6 weeks total from Debridement 11/18/17), am concerned whether the above CXR imaging may be loculation vs alternative non infectious diagnosis such as fluid overload from CHF vs malignant pleural effusion given history of untreated vaginal cancer Palliative care service following patient and goals of care is to at some point have patient ready for physical rehabilitation Have discussed with patient's son Tyree [phone] about possible diagnostic and therapeutic value of thoracentesis. Will also discuss with patient. Will sent CTA to rule out PE vs loculation. Will ask pulmonary service to evaluate for possible thoracentesis Continue wound care and antibiotics Generalized seizure disorder history On keppra, check Keppra levels, request neurology evaluation Electrolytes: replete potassium while on diuresis Anemia likely of chronic disease vs post operative S/P 3 units PRBC on this admission Hg stable FOBT (+) Fe and Folate low, replaced GI consulted: No plans for EGD Resumed ASA continue Protonix 40mg BID MARIELA on CKD III, MARIELA resolved HTN: on metoprolol, amlodipine, Clonidine DM II: A1c of 7.0 in February 2017 holding home meds Continue ISS, lantus Depression history on celexa H/o CVA: Stable continue ASA DVT Px: Heparin SQ Code status: DNR
[2017-12-04] MEDS: HEPARIN SOD 5000 UNIT/0.5 ML CARP SQ SCH ×3 (11:26→23:22)
--- NOTE | 2017-12-04 11:37 | DIAGNOSTIC IMAGING REPORT ---
CHEST ONE VIEW PORTABLE CLINICAL HISTORY: dyspnea COMPARISON STUDY: 11/29/2017 FINDINGS: The heart is borderline enlarged. Since the prior study, the patient has developed worsening left lower lobe airspace opacity suspicious for a pneumonia. There is a suspected small left pleural effusion. Destructive changes again involve the right humeral head. There is a right-sided PICC catheter, unchanged in position.[ IMPRESSION: Worsening left lower lobe airspace opacities, suspicious for pneumonia. Electronically signed by: Navneet Hoskins M.D. 12/04/2017 11:36 AM Dictated Date/Time: 12/04/2017 11:35 AM
[2017-12-04] MEDS ORDERED: FUROSEMIDE INJ 40 MG in SYRINGE 0 ML IV ONE (12:00)
[2017-12-04] MEDS ORDERED: NURSING VERBAL MED ORDER ONE (12:15)
[2017-12-04] MEDS: CITALOPRAM 20 MG TAB PO SCH (13:23)
[2017-12-04] MEDS ORDERED: OPTIRAY 320 IV PRN (13:45)
[2017-12-04 15:11] LABS: POTASSIUM 3.9 mmol/L (3.5-5.1)
--- NOTE | 2017-12-04 15:12 | Neurology Consultation ---
Neurology Consultation Date of Consultation: Dec 04, 2017. Attending Physician: Edgard Zarco M.D. Primary Care Physician: Molly Goldstein M.D. Reason for Consultation: evaluate for seizure History of Present Illness Source: patient Cassandra is a 87 year old female She is known to neurology but has not had an appointment since 2013, with a PMH of R hip fracture s/p hip replacement in February 2017, DM II, HTN, CKD III, HLD, vulvar cancer, h/o CVA without residual deficit. She was brought to the ED with a draining wound on her R hip. She was recently on a course of bactrim and referred to [place] [facility]. Wound has been draining purulent, serosanguineous fluid continuously several days prior to admission. She was taken to the ED for wash out and hemovac placement on 11/18. Annette brody was called on 12/04/17 in the AM. The CNAs report she became minimally responsive when been cleaned while her eyes were opened. Code was called. MD arrived at bedside. All of her vitals were stable. She states that her eyes are always open when she has a seizure and she is on Keppra for the seizures. She is currently resting comfortably. denies CP, SOB, abdominal pain, N, V. Past Medical/Surgical History Medical Problems: (1) Abscess of right hip Status: Acute (2) Altered mental status Status: Acute (3) Bradycardia Status: Acute (4) Cellulitis of right hip Status: Acute (5) Expressive aphasia Status: Acute (6) Fall Status: Acute (7) Possible urinary tract infection Status: Acute (8) Receptive aphasia Status: Acute (9) Skin tear of right hand without complication Status: Acute Social History Smoking Status: Never smoker Smokeless Tobacco Use: No Drug Use: none Marital Status: Housing Status: lives with family Occupation Status: retired Allergies Coded Allergies: Amoxicillin (Verified Allergy, Severe, CVA SYMPTOMS, 11/16/17) Penicillins (Unverified Allergy, Unknown, POSS CX OF CVA, 11/16/17) Risedronate (Unverified Allergy, Unknown, UNKNOWN, 11/16/17) Diphenhydramine (Unverified Adverse Reaction, Unknown, N&V, 11/16/17) Prednisone (Unverified Adverse Reaction, Unknown, HIGH BS, 11/16/17) Current Inpatient Medications Current Inpatient Medications Medications (Trade) Dose Ordered Sig/Zaina Route Start Time Stop Time Status Last Admin Dose Admin Ondansetron HCl (Zofran Inj) 4 mg Q6H PRN IV 11/16/17 11:45 12/16/17 11:44 Insulin Glargine (Lantus Solostar Pen) 6 units Q12 SC 11/16/17 21:00 12/16/17 20:59 12/04/17 09:51 6 UNITS Glucose (Glucose 40% Gel) 15-30 GRAMS 15 GRAMS... UD PRN PO 11/16/17 12:30 12/16/17 12:29 Glucose (Glucose Chew Tab) 4-8 Tablets 4 Tabl... UD PRN PO 11/16/17 12:30 12/16/17 12:29 Dextrose (Dextrose 50% 50ML Syringe) 25-50ML OF 50% DW IV FOR... UD PRN IV 11/16/17 12:30 12/16/17 12:29 Glucagon (Glucagon Inj) 1 mg UD PRN SQ 11/16/17 12:30 12/16/17 12:29 Cholecalciferol (Vitamin D Tab) 1,000 inter.unit DAILY PO 11/17/17 09:00 12/17/17 08:59 12/04/17 09:54 1,000 INTER.UNIT Cyanocobalamin (Vitamin B-12 Tab) 100 mcg DAILY PO 11/17/17 09:00 12/17/17 08:59 12/04/17 09:56 100 MCG Levetiracetam (Keppra Tab) 750 mg BID PO 11/16/17 21:00 12/16/17 20:59 12/04/17 09:55 750 MG Metoprolol Tartrate (Lopressor Tab) 25 mg BID PO 11/16/17 21:00 12/16/17 20:59 12/04/17 09:56 25 MG Simvastatin (Zocor Tab) 20 mg QPM PO 11/16/17 21:00 12/16/17 20:59 12/03/17 20:34 20 MG Zolpidem Tartrate (Ambien Tab) 5 mg HS PRN PO 11/16/17 12:45 12/16/17 12:44 12/03/17 20:34 5 MG Amlodipine Besylate (Norvasc Tab) 10 mg QAM PO 11/17/17 09:00 12/17/17 08:59 12/04/17 09:53 10 MG Polyethylene (Miralax Powder Packet) 17 gm DAILY PRN PO 11/16/17 15:00 12/16/17 14:59 11/23/17 18:05 17 GM Ferrous Sulfate (Feosol Tab) 325 mg TIDM PO 11/16/17 17:45 12/16/17 17:44 12/04/17 12:27 325 MG Citalopram Hydrobromide (celeXA TAB) 20 mg DAILY@1330 PO 11/18/17 13:30 12/18/17 13:29 12/04/17 13:23 20 MG Calcium/Vitamin D (Caltrate Plus Tab) 1 tab BID@0900,1330 PO 11/18/17 09:00 12/18/17 08:59 12/04/17 13:23 1 TAB Magnesium Hydroxide (Milk Of Magnesia Susp) 30 ml Q6H PRN PO 11/18/17 14:45 12/18/17 14:44 11/24/17 09:03 30 ML Al Hydrox/Mg Hydrox/Simethicone (Maalox Max Susp) 15 ml Q4H PRN PO 11/18/17 14:45 12/18/17 14:44 Multivitamins (Multivitamin Tab) 1 tab QAM PO 11/19/17 09:00 12/19/17 08:59 12/04/17 09:57 1 TAB Insulin Aspart (novoLOG ASPART) SLIDING SCALE If C... ACHS SC 11/19/17 08:00 12/19/17 07:59 12/04/17 13:22 4 UNITS Acetaminophen (Tylenol Tab) tylenol 325mg tab 1-2 ... Q4H PRN PO 11/19/17 15:30 12/16/17 11:44 12/01/17 10:51 650 MG Bisacodyl (Dulcolax Supp) 10 mg DAILY PRN NV 11/21/17 10:00 12/21/17 09:59 11/24/17 11:20 10 MG Folic Acid (Folvite Tab) 1 mg QAM PO 11/22/17 09:00 12/22/17 08:59 12/04/17 09:56 1 MG Enteral Nutritional Formula (Boost Glucose Control) 1 can BID PO 11/21/17 21:00 12/21/17 20:59 12/03/17 09:10 1 CAN Clonidine HCl (Catapres Tab) 0.1 mg Q6H PRN PO 11/21/17 19:15 12/21/17 19:14 Clonidine HCl (Catapres Tab) 0.1 mg BID PO 11/23/17 21:00 12/23/17 20:59 12/04/17 09:55 0.1 MG Senna/Docusate Sodium (Senokot S Tab) 1 tab QAM PO 11/25/17 09:00 12/25/17 08:59 12/04/17 09:56 1 TAB Aspirin (Ecotrin Tab) 81 mg DAILY PO 11/25/17 09:00 12/23/17 08:59 12/04/17 09:55 81 MG Heparin Sodium (Porcine) (Heparin Sq 5000 Unit/0.5ml) 5,000 unit Q12H SQ 11/24/17 11:15 12/24/17 11:14 12/04/17 11:26 5,000 UNIT Pantoprazole Sodium (Protonix Tab) 40 mg BID PO 11/24/17 21:00 12/24/17 20:59 12/04/17 09:56 40 MG Ertapenem 1000 mg/ Sodium Chloride 60 ml @ 120 mls/hr Q24H IV 11/25/17 18:30 01/04/18 18:29 12/03/17 19:10 120 MLS/HR Heparin Sodium (Porcine) (Heparin 10 Unit/ ml 5 ml Flush) 5 ml PRN PRN FLUSH 11/27/17 16:45 12/27/17 16:44 12/04/17 14:34 5 ML Albuterol/ Ipratropium (Duoneb) 3 ml QIDR INH 11/28/17 20:00 12/28/17 19:59 12/04/17 10:50 3 ML Daptomycin 400 mg/ Syringe 8 ml @ 3 mls/min Q24H IV 11/30/17 18:00 01/11/18 13:29 12/03/17 18:14 3 MLS/MIN Magnesium Oxide (Mag-Ox Tab) 400 mg BID PO 12/01/17 21:00 12/04/17 20:59 12/04/17 09:56 400 MG Tramadol HCl (Ultram Tab) 25 mg Q6H PRN PO 12/04/17 11:00 01/01/18 14:29 Ioversol (Optiray 320) 111 ml UD PRN IV 12/04/17 13:45 12/08/17 13:44 Physical Exam Vital Signs (Past 24 Hrs): Date Time Temp Pulse Resp B/P (MAP) Pulse Ox O2 Delivery O2 Flow Rate FiO2 12/04/17 10:50 68 20 94 Mask 15.0 12/04/17 07:34 37.6 80 22 117/55 (75) 90 Oxymask 5.0 12/04/17 07:32 69 16 93 Nasal Cannula 2.0 12/03/17 23:55 Nasal Cannula 2.0 12/03/17 22:31 36.8 63 16 152/66 (94) 92 Nasal Cannula 3.0 12/03/17 20:21 72 130/62 (84) 12/03/17 19:40 89 16 96 Nasal Cannula 2.0 12/03/17 16:02 36.8 69 17 138/62 (87) 96 Nasal Cannula 3.0 12/03/17 15:30 93 Nasal Cannula 3.0 Physical Exam: Constitutional: appearance thin pale ill appearing, very [place] Ears, Nose, Mouth and Throat: mucous membranes moist, no injection and skin normal, eyes normal Cardiovascular: normal S-1 and S-2 and regular rate and rhythm Respiratory: clear to auscultation (CTA) and no rales, rhonchi or wheeze Musculoskeletal: distant distal pulses Skin: no stigmata of neurocutaneous disease noted and normal and intact Eyes: extraocular muscles intact (EOMI) and pupils equal, round and reactive to light (PERRL) NEUROLOGIC EXAMINATION: Mental status: Alert and interactive Oriented [facility], 2017, her because of her hip and knows she takes Keppra for her seizures Oriented to person Speech fluent with no evidence of aphasia Cranial Nerves smile and eye brow raise symmetric Sensory: intact to light touch Coordination: finger to nose but slow and deliberate Gait/Stance: Posture normal. Gait normal: with steady with steps, base, turning, heel and toe walking and tandem gait. Motor: Negative for pronator drift of out stretched arms with eyes closed. 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 4+/5, hip flex not evaluated Laboratory Results Past 24 Hours: 12/04/17 05:25 12/04/17 05:25 Test 12/04/17 05:25 12/04/17 10:44 12/04/17 14:33 Red Blood Count 3.17 M/uL (4.2-5.4) Mean Corpuscular Volume 89.3 fL (80-100) Mean Corpuscular Hemoglobin 29.7 pg (25-34) Mean Corpuscular Hemoglobin Concent 33.2 g/dl (32-36) RDW Standard Deviation 50.8 fL (36.4-46.3) RDW Coefficient of Variation 16.0 % (11.5-14.5) Mean Platelet Volume 9.2 fL (7.4-10.4) Anion Gap 5.0 mmol/L (3-11) Est Creatinine Clear Calc Drug Dose 46.2 ml/min Estimated GFR () 83.8 Estimated GFR (Non- 72.3 BUN/Creatinine Ratio 16.5 (10-20) Calcium Level 8.3 mg/dl (8.5-10.1) Magnesium Level 2.1 mg/dl (1.8-2.4) Total Creatine Kinase 40 U/L (26-192) Bedside Glucose 147 mg/dl (70-90) Imaging no current imaging Impression 87 year old female with extensive PMH including seizure disorder Plan 1. Keppra level pendings 2. continue keppra 750 mg BID for now may want to increase dosing 3. would d/c Ultram can decrease seizure threshold 4. may have had seizure due to ongoing infection still elevated WBC- described as her seizure pattern 5. ID direction of treatment 6. pain mgt per primary team 7. seizure and fall precautions further recommendations to follow I have seen and discussed above patient with Dr Emilia Ramires, neurology Pt seen and examined. I assume she had a sz as her typical spells are staring spells. No abnormalities of vitals, glucose. O2 sat mildly low. Pt had no complaint of headache, or focal neurologic sz. Her exam is nonfocal Suspect breakthourgh partial complex sz related in part to tramadol use, which can lower sz threshold and use of ertapenam the class of which can cause sz. Tramadol dced. Consider other antibiotic if there is a reasonable alternative. If it must be continued would montiro for more sz. I would in the meantime increase keppra to 1000 mg BID. JODI Ramires MD
--- NOTE | 2017-12-04 15:31 | DIAGNOSTIC IMAGING REPORT ---
(CHEST FOR PE) ANGIO WITH CT DOSE: 306.03 mGy.cm HISTORY: Dyspnea hypoxia, rule out left lung loculation, rule out PE TECHNIQUE: Multiaxial CT images of the chest were performed following the intravenous administration of contrast to evaluate the pulmonary arteries. Maximal intensity projection images were also obtained. A dose lowering technique was utilized adhering to the principles of ALARA. COMPARISON STUDY: None FINDINGS: Bilateral lower lobe atelectatic change. Small bilateral pleural effusions. The pulmonary vasculature enhances uniformly. There are no major filling defects. Mid and upper lungs are considered clear. Fixed lateral hernia is present. Mild aneurysmal dilatation of the apex of the aortic arch and 3.8 cm. No evidence for dissection. Moderate prominence aortic root at 4.1 cm. Mild osteopenia of the osseous structures. Slight wedge deformity T11 felt to be nonacute radiographically. Potential left adrenal mass measuring 2.5 cm. IMPRESSION: 1. No evidence for pulmonary embolus. 2. Bibasilar right and left lower lobe atelectasis. 3. Small bilateral pleural effusions. 4. Mild aneurysmal dilatation of the aorta as well as aortic root as noted. 5. Potential left adrenal mass measuring 2.5 cm. 6. Degenerative and osteopenic change of the osseous structures throughout. The above report was generated using voice recognition software. It may contain grammatical, syntax or spelling errors. Electronically signed by: Gael Langley M.D. 12/04/2017 3:29 PM Dictated Date/Time: 12/04/2017 3:23 PM
[2017-12-04] MEDS: DAPTOmycin IV 400 MG in SYRINGE 0 ML IV SCH (17:56)
[2017-12-04] MEDS: ERTAPENEM IV 1,000 MG in SODIUM CHLORIDE 0.9% 50ML 50 ML IV SCH (18:01)
--- NOTE | 2017-12-04 18:05 | ECHOCARDIOGRAM REPORT ---
*NOTICE TO RECEIVING [employer] This information is strictly Confidential and protected under [place] law. [place] law prohibits you from making any further disclosure of this information unless further disclosure is expressly permitted by the written consent of the person to whom it pertains or is authorized by law. A general authorization for the release of medical or other information is not sufficient for this purpose. Hospital accepts no responsibility if the information is made available to any other person, INCLUDING THE PATIENT. Interpretation Summary * Name: SREE CHACKO Study Date: 12/04/2017 02:04 PM BP: 117/55 mmHg * Patient Location: .[facility]\S\W356\S\2 HR: 68 * : 1930 (M/d/yyyy) Gender: Female Height: 62 in * Age: 87 yrs Ethnicity: [place] Weight: 141 lb * Ordering Physician: Edgard Zarco * Referring Physician: Self, Referred * Performed By: Polly Bautista RCS * * Reason For Study: CHF * BSA: 1.6 m2 * Compared to prior study, there is no significant change. * -- Conclusions -- * The left ventricle is normal in size. * There is mild concentric left ventricular hypertrophy. * Left ventricular systolic function is normal. * The left ventricular wall motion is normal. * Ejection Fraction = 60-65%. * The aortic valve leaflets are moderatel;y calcified * Mild valvular aortic stenosis. * There is moderate mitral annular calcification. * There is trace mitral regurgitation. * Grade I diastolic dysfunction, (abnormal relaxation pattern). Procedure Details * A complete two-dimensional transthoracic echocardiogram was performed (2D, M-mode, Doppler and color flow Doppler). * There were technical limitations due to patient'spoor positioning Left Ventricle * The left ventricle is normal in size. * There is mild concentric left ventricular hypertrophy. * Left ventricular systolic function is normal. * Ejection Fraction = 60-65%. * The left ventricular wall motion is normal. Right Ventricle * The right ventricle is normal in size and function. Atria * The left atrial size is normal. * Right atrial size is normal. * No ASD detected; PFO is not assessed. Mitral Valve * There is moderate mitral annular calcification. * There is no mitral valve stenosis. * There is trace mitral regurgitation. Tricuspid Valve * The tricuspid valve is normal. * There is no tricuspid stenosis. * There is trace tricuspid regurgitation. Aortic Valve * The aortic valve is trileaflet. * The aortic valve leaflets are moderatel;y calcified * Mild valvular aortic stenosis. * No aortic regurgitation is present. Pulmonic Valve * The pulmonic valve is not well visualized. Great Vessels * The aortic root is normal size. Pericardium/Pleural * There is no pericardial effusion. Great Vessels * Normal inferior vena cava diameter and respiratory variation suggests normal central venous pressure. Left Ventricular Diastolic Function * Grade I diastolic dysfunction, (abnormal relaxation pattern). MMode 2D Measurements and Calculations IVSd 10 cm IVSs 1.3 cm LVIDd 4.5 cm LVIDs 2.7 cm LVPWd 10 cm LVPWs 1.4 cm IVS/LVPW 10 FS 39.5 % EDV(Teich) 92.4 ml ESV(Teich) 27.5 ml EF(Teich) 70.2 % EDV(cubed) 91.1 ml ESV(cubed) 20.2 ml EF(cubed) 77.9 % % IVS thick 27.6 % % LVPW thick 40.1 % LV mass(C)d 152.8 grams LV mass(C)dI 92.7 grams/m\S\2 LV mass(C)s 114.3 grams LV mass(C)sI 69.4 grams/m\S\2 SV(Teich) 64.9 ml SI(Teich) 39.4 ml/m\S\2 SV(cubed) 70.9 ml SI(cubed) 43.1 ml/m\S\2 Ao root diam 3.4 cm Ao root area 8.9 cm\S\2 ACS 1.5 cm LA dimension 3.2 cm asc Aorta Diam 2.9 cm LA/Ao 0.95 LVOT diam 1.9 cm LVOT area 2.8 cm\S\2 EDV(MOD-sp4) 98.0 ml ESV(MOD-sp4) 43.0 ml EF(MOD-sp4) 56.1 % EDV(MOD-sp2) 105.0 ml ESV(MOD-sp2) 47.0 ml EF(MOD-sp2) 55.2 % SV(MOD-sp4) 55.0 ml SI(MOD-sp4) 33.4 ml/m\S\2 SV(MOD-sp2) 58.0 ml SI(MOD-sp2) 35.2 ml/m\S\2 Doppler Measurements and Calculations MV E max marilu 104.6 cm/sec MV A max marilu 132.7 cm/sec MV E/A 0.79 MV P1/2t max marilu 112.7 cm/sec MV P1/2t 80.6 msec MVA(P1/2t) 2.7 cm\S\2 MV dec slope 409.7 cm/sec\S\2 MV dec time 0.29 sec Ao V2 max 266.4 cm/sec Ao max PG 28.4 mmHg Ao max PG (full) 22.8 mmHg Ao V2 mean 182.2 cm/sec Ao mean PG 15.1 mmHg Ao mean PG (full) 12.4 mmHg Ao V2 VTI 59.1 cm MIKEY(I,A) 1.4 cm\S\2 MIKEY(I,D) 1.4 cm\S\2 MIKEY(V,A) 1.2 cm\S\2 MIKEY(V,D) 1.2 cm\S\2 AI max marilu 273.9 cm/sec AI max PG 30.0 mmHg AI dec slope 182.2 cm/sec\S\2 AI P1/2t 440.3 msec LV V1 max PG 5.5 mmHg LV V1 mean PG 2.7 mmHg LV V1 max 117.6 cm/sec LV V1 mean 77.1 cm/sec LV V1 VTI 29.3 cm SV(Ao) 524.6 ml SI(Ao) 318.4 ml/m\S\2 SV(LVOT) 81.0 ml SI(LVOT) 49.2 ml/m\S\2 PA V2 max 119.1 cm/sec PA max PG 5.7 mmHg TR max marilu 232.0 cm/sec
--- NOTE | 2017-12-04 19:57 | Pulmonary Consultation ---
History General Date of Service: Dec 04, 2017. Stated Complaint: Pleural effusion for thoracentesis evaluation HPI The patient is a 87 year old female who presents to [facility] with complaints of Abscess Of R Hip. The patient's primary care provider is Molly Goldstein M.D.. Historian: patient, other (records) Onset: other (the patient had pleural effusion developed over the past hospital stay which extend for the past 3 weeks.) Review of Systems Review of system was very limited as the patient had hearing loss, and she denies however any chest pain but mention increasing shortness of breath. Mainly in supine position. She does have significant dysphagia and she does not swallow well also. Her symptoms has been persistent for the past 6 months. No abdominal pain and no nausea or vomiting was reported. The patient is very weak and she needs assistance even to sit up for the exam. She denies any pain at this point her review of system was limited however 8 systems been reviewed and they were all unremarkable except for the above. Past Medical History Past Medical History: The patient had a history of dementia, CVA, dysphagia, total hip replacement on the right in February 2017 complicated by right hip abscess treated with chronic antibiotic and a placement of PICC line. 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 Past Surgical History: ORIF right hip. Family History FH: lung cancer BROTHER FH: stroke FATHER Oral cancer MOTHER Social History Nonsmoker but quit over 40 years ago. Hx Tobacco Use In Past Year?: No Smoking Status: Never Smoker Marital status: Housing status: lives alone Occupational Status: retired Immunizations History of Influenza Vaccine: Yes Influenza Vaccine Date: Jul 15, 2013 History of Tetanus Vaccine?: Yes History of Pneumococcal: Yes Pneumococcal Date: Sep 05, 2002 History of Hepatitis B Vaccine: No History of MDRO History of MDRO: No Allergies Coded Allergies: Amoxicillin (Verified Allergy, Severe, CVA SYMPTOMS, 11/16/17) Penicillins (Unverified Allergy, Unknown, POSS CX OF CVA, 11/16/17) Risedronate (Unverified Allergy, Unknown, UNKNOWN, 11/16/17) Diphenhydramine (Unverified Adverse Reaction, Unknown, N&V, 11/16/17) Prednisone (Unverified Adverse Reaction, Unknown, HIGH BS, 11/16/17) Current Medications Reported Home Medications Medications Dose Route/Sig Max Daily Dose Days Date Category Dose Instructions Kp Ferrous Sulfate (Ferrous Sulfate) 325 Mg Tab 325 Mg PO TIDM 11/16/17 Reported Docusate Sodium 100 Mg Cap 100 Mg PO BID PRN 11/16/17 Reported Aspirin Ec (Aspirin) 81 Mg Tab 81 Mg PO BIDM 11/16/17 Reported Vitamin D-3 (Cholecalciferol) 1,000 Unit Tab 1,000 Units PO DAILY 11/16/17 Reported Lasix (Furosemide) 20 Mg Tab 20 Mg PO 3XWK 11/16/17 Reported MON,WED,FRI Lopressor (Metoprolol Tartrate) 25 Mg Tab 25 Mg PO BID 11/16/17 Reported Amlodipine Besylate 10 Mg Tab 10 Mg PO DAILY 30 03/13/17 Rx Novolog Mix 70/30 (Insulin Aspart Prota 70%/Aspart 30%) Susp 8 Units SC QPM 03/06/17 Reported Inject 8 units subcutaneously before supper. Novolog Mix 70/30 (Insulin Aspart Prota 70%/Aspart 30%) Susp 14 Units SC QAM 03/06/17 Reported Inject 14 units subcutaneously before breakfast. Vitamin B-12 (Cyanocobalamin) 100 Mcg Tab 100 Mcg PO DAILY 05/28/16 Rx Levetiracetam (Levetiractam) 500 Mg Tab 750 Mg PO BID 05/28/16 Rx Multivitamin (Multivitamins) Tab 1 Tab PO DAILY 05/24/16 Reported Calcium (Calcium Carbonate-Vitamin D) 1 Tab Tab 1 Tab PO BID 05/24/16 Reported Prolia (Denosumab) 60 Mg/Ml Justyna 60 Mg SQ [id number] 05/24/16 Reported Miralax (Polyethylene Glycol 3350) 1 Pow Pow 17 Gm PO BID PRN 11/03/13 Reported Ambien (Zolpidem Tartrate) 5 Mg Tab 5 Mg PO HS PRN 11/03/13 Reported Zocor (Simvastatin) 20 Mg Tab 20 Mg PO QPM 09/10/13 Reported Citalopram Hydrobromide 20 Mg Tab 20 Mg PO HS 09/10/13 Reported Physical Physical Exam Vital Signs: Date Time Temp Pulse Resp B/P (MAP) Pulse Ox O2 Delivery O2 Flow Rate FiO2 12/04/17 18:35 Nasal Cannula 4.0 12/04/17 16:07 36.4 62 16 123/61 (81) 95 Nasal Cannula 4.0 12/04/17 10:50 68 20 94 Mask 15.0 12/04/17 07:52 93 Oxymask 5.0 12/04/17 07:34 37.6 80 22 117/55 (75) 90 Oxymask 5.0 12/04/17 07:32 69 16 93 Nasal Cannula 2.0 12/03/17 23:55 Nasal Cannula 2.0 12/03/17 22:31 36.8 63 16 152/66 (94) 92 Nasal Cannula 3.0 12/03/17 20:21 72 130/62 (84) General Appearance: NO APPARENT DISTRESS Head: NORMOCEPHALIC Eyes: PERRLA, EOMI ENT: NORMAL MOUTH EXAM Neck: NO STRIDOR, SUPPLE Respiratory: BREATH SOUNDS NORMAL Cardiovasular: REGULAR RATE/RHYTHM, NORMAL S1S2, systolic murmur Abdomen: NON TENDER, NO MASSES Upper Extremities: NO EDEMA Neuro: ALERT, other (hard of hearing) Diagnostics Labs Results Past 24 Hours Test 12/03/17 20:47 12/04/17 05:25 12/04/17 08:17 12/04/17 10:44 Range/Units Bedside Glucose 181 115 147 70-90 mg/dl White Blood Count 21.05 4.8-10.8 K/uL Red Blood Count 3.17 4.2-5.4 M/uL Hemoglobin 9.4 12.0-16.0 g/dL Hematocrit 28.3 37-47 % Mean Corpuscular Volume 89.3 80-100 fL Mean Corpuscular Hemoglobin 29.7 25-34 pg Mean Corpuscular Hemoglobin Concent 33.2 32-36 g/dl RDW Standard Deviation 50.8 36.4-46.3 fL RDW Coefficient of Variation 16.0 11.5-14.5 % Platelet Count 334 130-400 K/uL Mean Platelet Volume 9.2 7.4-10.4 fL Sodium Level 132 136-145 mmol/L Potassium Level 3.5 3.5-5.1 mmol/L Chloride Level 90 98-107 mmol/L Carbon Dioxide Level 37 21-32 mmol/L Anion Gap 5.0 3-11 mmol/L Blood Urea Nitrogen 12 7-18 mg/dl Creatinine 0.74 0.60-1.20 mg/dl Est Creatinine Clear Calc Drug Dose 46.2 ml/min Estimated GFR () 83.8 Estimated GFR (Non- 72.3 BUN/Creatinine Ratio 16.5 10-20 Random Glucose 60 70-99 mg/dl Calcium Level 8.3 8.5-10.1 mg/dl Magnesium Level 2.1 1.8-2.4 mg/dl Total Creatine Kinase 40 26-192 U/L Test 12/04/17 12:11 12/04/17 14:33 12/04/17 17:20 Range/Units Bedside Glucose 125 171 70-90 mg/dl Potassium Level 3.9 3.5-5.1 mmol/L Pro-B-Type Natriuretic Peptide 2345 0-1800 pg/ml Diagnostic Radiology Chest x-ray and CAT scan both reviewed which showed atelectasis and multiple subsegments, reactive pleural effusion bilaterally, no lymphadenopathy significant at this point. Impression Assessment and Plan #1 clearly the patient is aspirating due to her history of dysphagia, multiple subsegments that appeared to be atelectatic, pleural effusion bilaterally are small on the CAT scan and by ultrasound which I performed at the bedside and image both sides. The patient is having also difficulty repositioning for any possible diagnostic thoracentesis. These fluid are likely reactive secondary to address and atelectasis. #2 the findings does not support a diagnosis of pneumonia itself. However the patient has been treated empirically with the staff at them and daptomycin. #3 bronchoscopy would be helpful to evaluate the atelectasis bilaterally in the left lower lobe as well as the right lower lobe superior segment, however that would require performing a procedure under conscious sedation. The patient is at high risk for intubation. She is currently DO NOT RESUSCITATE. #4 agree with the rest of her management. #5 so far the atelectasis laterally is not interfering with her respiratory status, and she remains without tachypnea and not hypoxic either. #6. Echocardiogram has been reviewed which showed ejection fraction of 60% without evidence of valve abnormality. Thank you, will follow.
[2017-12-04] MEDS ORDERED: LEVETIRACETAM 500 MG TAB PO SCH (21:00)
[2017-12-04] MEDS: SIMVASTATIN 20 MG TAB PO SCH (21:11)
[2017-12-04] MEDS: LEVETIRACETAM ORAL SOLN 100MG/ML PO SCH (21:29)
[2017-12-04] MEDS: ZOLPIDEM TARTRATE 5 MG TAB PO PRN (21:29)
[2017-12-05] VITALS (11 sets, daily range): BP systolic 106–143; BP diastolic 51–93; PULSE 62–78; TEMP 36.3; O2SAT 89–97
[2017-12-05 06:10] LABS: BASO % 0.2 %; BASO ABS # 0.03 K/uL (0-0.2); EOS ABS # 0.49 K/uL (0-0.5); HEMATOCRIT 27.8 % (37-47); HEMOGLOBIN 9.1 g/dL (12.0-16.0); IG# 0.06 K/uL (0.00-0.02); LYMPH % 18.1 %; LYMPH ABS # 2.94 K/uL (1.2-3.4); MEAN CELL VOLUME 89.7 fL (80-100); MEAN CORPUSCULAR HEMOGLOBIN 29.4 pg (25-34); MEAN CORPUSCULAR HGB CONC 32.7 g/dl (32-36); MEAN PLATELET VOLUME 8.7 fL (7.4-10.4); MONO % 4.7 %; MONO ABS # 0.76 K/uL (0.11-0.59); NEUT % 73.6 %; NEUT ABS # 11.95 K/uL (1.4-6.5); PLATELET COUNT 293 K/uL (130-400); RED CELL DISTRIBUTION WIDTH CV 16.1 % (11.5-14.5); RED CELL DISTRIBUTION WIDTH SD 52.4 fL (36.4-46.3); WHITE BLOOD COUNT 16.23 K/uL (4.8-10.8)
[2017-12-05 06:46] LABS: ALBUMIN 1.6 gm/dl (3.4-5.0); CALCIUM 8.3 mg/dl (8.5-10.1); CREATININE 0.81 mg/dl (0.60-1.20); POTASSIUM 3.7 mmol/L (3.5-5.1)
[2017-12-05 06:49] LABS: TOTAL PROTEIN 5.7 gm/dl (6.4-8.2)
[2017-12-05] MEDS: ALBUT/IPRATROP 3MG/0.5MG NEB 3 ML VIAL INH SCH ×4 (07:06→19:06)
[2017-12-05] MEDS: LEVETIRACETAM ORAL SOLN 100MG/ML PO SCH ×2 (08:55→21:37)
[2017-12-05] MEDS: ASPIRIN 81 MG ECTAB PO SCH (08:55)
[2017-12-05] MEDS: CYANOCOBALAMIN 100 MCG TAB (VIT B-12) PO SCH (08:56)
[2017-12-05] MEDS: CLONIDINE HCL 0.1 MG TAB PO SCH ×2 (08:56→21:38)
[2017-12-05] MEDS: PANTOprazole SOD 40 MG TAB PO SCH ×2 (08:56→21:38)
[2017-12-05] MEDS: METOPROLOL TARTRATE 25 MG TAB PO SCH ×2 (08:56→21:44)
[2017-12-05] MEDS: DOCUSATE SODIUM/SENNA 50/8.6MG TAB PO SCH (08:56)
[2017-12-05] MEDS: CALCIUM 600MG + VIT D 400 IU TAB PO SCH ×2 (08:57→13:39)
[2017-12-05] MEDS: AMLODIPINE BESYLATE 5 MG TAB PO SCH (08:57)
[2017-12-05] MEDS: CHOLECALCIFEROL 1000 INTER.UNIT TAB PO SCH (08:57)
[2017-12-05] MEDS: FERROUS SULFATE 325 MG TAB PO SCH ×3 (08:58→18:32)
[2017-12-05] MEDS: MULTIVITAMIN TAB PO SCH (08:58)
[2017-12-05] MEDS: INSULIN GLARGINE SOLOSTAR 100 UNITS/ML 3 ML PEN SC SCH ×2 (09:04→21:52)
[2017-12-05] MEDS: INSULIN ASPART 100 UNITS/ML 3 ML PEN SC SCH ×4 (09:04→21:51)
[2017-12-05] MEDS: BOOST GLUCOSE CONTROL PO SCH ×2 (09:05→21:41)
[2017-12-05] MEDS: HEPARIN SOD 5000 UNIT/0.5 ML CARP SQ SCH ×2 (10:45→21:52)
[2017-12-05] MEDS: CITALOPRAM 20 MG TAB PO SCH (13:39)
--- NOTE | 2017-12-05 14:28 | Pulmonology Progress Note ---
Pulmonary Progress Note Date of Service Dec 05, 2017. Attending Dr. Coombs Subjective The patient denies any shortness of breath, no cough, no events overnight, she continued to be on 2 L oxygen. Objective Physical exam on 12/05/2017, revealed stable vital signs, O2 saturation 92%, no stridor, distant breath sounds bilaterally, heart examination S1 and S2 regular rate and rhythm, abdomen is benign, edema in the periphery. Assessment & Plan #1 sepsis secondary to infected wound, currently on antibiotics for a total of 6 weeks via PICC line. Improving #2 dysphagia resulted in aspiration, multiple areas of subsegmental atelectasis. #3 bilateral small pleural effusion not amenable to thoracentesis. Plan: #1 in discussion with the patient, she is not interested in performing bronchoscopy at this point. I offered her bronchoscopy for pulmonary toilet only. #2 the patient has pleural effusion which is small and does not compromise her respiratory status. Likely reactive secondary to above atelectasis. #3 continue with oxygen therapy. #4 agree with your management. #5 no further recommendation from pulmonary standpoint. Thank you for your kind referral, will follow as needed. Data Medications: Current Inpatient Medications Medications (Trade) Dose Ordered Sig/Zaina Route Start Time Stop Time Status Last Admin Dose Admin Ondansetron HCl (Zofran Inj) 4 mg Q6H PRN IV 11/16/17 11:45 12/16/17 11:44 Insulin Glargine (Lantus Solostar Pen) 6 units Q12 SC 11/16/17 21:00 12/16/17 20:59 12/05/17 09:04 6 UNITS Glucose (Glucose 40% Gel) 15-30 GRAMS 15 GRAMS... UD PRN PO 11/16/17 12:30 12/16/17 12:29 Glucose (Glucose Chew Tab) 4-8 Tablets 4 Tabl... UD PRN PO 11/16/17 12:30 12/16/17 12:29 Dextrose (Dextrose 50% 50ML Syringe) 25-50ML OF 50% DW IV FOR... UD PRN IV 11/16/17 12:30 12/16/17 12:29 Glucagon (Glucagon Inj) 1 mg UD PRN SQ 11/16/17 12:30 12/16/17 12:29 Cholecalciferol (Vitamin D Tab) 1,000 inter.unit DAILY PO 2/3/18 09:00 12/17/17 08:59 12/05/17 08:57 1,000 INTER.UNIT Cyanocobalamin (Vitamin B-12 Tab) 100 mcg DAILY PO 11/17/17 09:00 12/17/17 08:59 12/05/17 08:56 100 MCG Metoprolol Tartrate (Lopressor Tab) 25 mg BID PO 11/16/17 21:00 12/16/17 20:59 12/05/17 08:56 25 MG Simvastatin (Zocor Tab) 20 mg QPM PO 11/16/17 21:00 12/16/17 20:59 12/04/17 21:11 20 MG Zolpidem Tartrate (Ambien Tab) 5 mg HS PRN PO 11/16/17 12:45 12/16/17 12:44 12/04/17 21:29 5 MG Amlodipine Besylate (Norvasc Tab) 10 mg QAM PO 11/17/17 09:00 12/17/17 08:59 12/05/17 08:57 10 MG Polyethylene (Miralax Powder Packet) 17 gm DAILY PRN PO 11/16/17 15:00 12/16/17 14:59 11/23/17 18:05 17 GM Ferrous Sulfate (Feosol Tab) 325 mg TIDM PO 11/16/17 17:45 12/16/17 17:44 12/05/17 13:39 325 MG Citalopram Hydrobromide (celeXA TAB) 20 mg DAILY@1330 PO 11/18/17 13:30 12/18/17 13:29 12/05/17 13:39 20 MG Calcium/Vitamin D (Caltrate Plus Tab) 1 tab BID@0900,1330 PO 11/18/17 09:00 12/18/17 08:59 12/05/17 13:39 1 TAB Magnesium Hydroxide (Milk Of Magnesia Susp) 30 ml Q6H PRN PO 11/18/17 14:45 12/18/17 14:44 11/24/17 09:03 30 ML Al Hydrox/Mg Hydrox/Simethicone (Maalox Max Susp) 15 ml Q4H PRN PO 11/18/17 14:45 12/18/17 14:44 Multivitamins (Multivitamin Tab) 1 tab QAM PO 11/19/17 09:00 12/19/17 08:59 12/05/17 08:58 1 TAB Insulin Aspart (novoLOG ASPART) SLIDING SCALE If C... ACHS SC 11/19/17 08:00 12/19/17 07:59 12/05/17 13:50 8 UNITS Acetaminophen (Tylenol Tab) tylenol 325mg tab 1-2 ... Q4H PRN PO 11/19/17 15:30 12/16/17 11:44 12/01/17 10:51 650 MG Bisacodyl (Dulcolax Supp) 10 mg DAILY PRN [place] 11/21/17 10:00 12/21/17 09:59 11/24/17 11:20 10 MG Folic Acid (Folvite Tab) 1 mg QAM PO 11/22/17 09:00 12/22/17 08:59 12/05/17 08:57 1 MG Enteral Nutritional Formula (Boost Glucose Control) 1 can BID PO 11/21/17 21:00 12/21/17 20:59 12/05/17 09:05 1 CAN Clonidine HCl (Catapres Tab) 0.1 mg Q6H PRN PO 11/21/17 19:15 12/21/17 19:14 Clonidine HCl (Catapres Tab) 0.1 mg BID PO 11/23/17 21:00 12/23/17 20:59 12/05/17 08:56 0.1 MG Senna/Docusate Sodium (Senokot S Tab) 1 tab QAM PO 11/25/17 09:00 12/25/17 08:59 12/05/17 08:56 1 TAB Aspirin (Ecotrin Tab) 81 mg DAILY PO 11/25/17 09:00 12/23/17 08:59 12/05/17 08:55 81 MG Heparin Sodium (Porcine) (Heparin Sq 5000 Unit/0.5ml) 5,000 unit Q12H SQ 11/24/17 11:15 12/24/17 11:14 12/05/17 10:45 5,000 UNIT Pantoprazole Sodium (Protonix Tab) 40 mg BID PO 11/24/17 21:00 12/24/17 20:59 12/05/17 08:56 40 MG Ertapenem 1000 mg/ Sodium Chloride 60 ml @ 120 mls/hr Q24H IV 11/25/17 18:30 01/04/18 18:29 12/04/17 18:01 120 MLS/HR Heparin Sodium (Porcine) (Heparin 10 Unit/ ml 5 ml Flush) 5 ml PRN PRN FLUSH 11/27/17 16:45 12/27/17 16:44 12/05/17 14:18 5 ML Albuterol/ Ipratropium (Duoneb) 3 ml QIDR INH 11/28/17 20:00 12/28/17 19:59 12/05/17 11:12 3 ML Daptomycin 400 mg/ Syringe 8 ml @ 3 mls/min Q24H IV 11/30/17 18:00 01/11/18 13:29 12/04/17 17:56 3 MLS/MIN Ioversol (Optiray 320) 111 ml UD PRN IV 12/04/17 13:45 12/08/17 13:44 Levetiracetam (Keppra Soln) 1,000 mg BID PO 12/04/17 21:00 01/03/18 20:59 12/05/17 08:55 1,000 MG I & O: 24-Hour Column 12/06/17 07:59 Intake Total 205 ml Output Total 200 ml Balance 5 ml Vital Signs: Date Time Temp Pulse Resp B/P (MAP) Pulse Ox O2 Delivery O2 Flow Rate FiO2 12/05/17 11:13 64 20 91 Nasal Cannula 2.0 12/05/17 08:10 69 119/82 (94) 12/05/17 08:00 Nasal Cannula 4.0 12/05/17 07:48 106/54 (71) 91 2.0 12/05/17 07:46 36.3 68 16 126/65 (85) 91 Nasal Cannula 2.0 12/05/17 07:06 62 20 97 Nasal Cannula 2.0 12/04/17 23:20 36.4 62 16 144/69 (94) 97 Nasal Cannula 4.0 12/04/17 23:15 Nasal Cannula 4.0 12/04/17 21:09 62 118/56 (76) 12/04/17 20:39 62 20 95 Nasal Cannula 4.0 12/04/17 18:35 Nasal Cannula 4.0 12/04/17 16:07 36.4 62 16 123/61 (81) 95 Nasal Cannula 4.0 Laboratory Results: Last 24 Hours Test 12/04/17 14:33 12/04/17 17:20 12/04/17 20:48 12/05/17 05:22 Potassium Level 3.9 mmol/L 3.7 mmol/L Pro-B-Type Natriuretic Peptide 2345 pg/ml Bedside Glucose 171 mg/dl 220 mg/dl White Blood Count 16.23 K/uL Red Blood Count 3.10 M/uL Hemoglobin 9.1 g/dL Hematocrit 27.8 % Mean Corpuscular Volume 89.7 fL Mean Corpuscular Hemoglobin 29.4 pg Mean Corpuscular Hemoglobin Concent 32.7 g/dl Platelet Count 293 K/uL Mean Platelet Volume 8.7 fL Neutrophils (%) (Auto) 73.6 % Lymphocytes (%) (Auto) 18.1 % Monocytes (%) (Auto) 4.7 % Eosinophils (%) (Auto) 3.0 % Basophils (%) (Auto) 0.2 % Neutrophils # (Auto) 11.95 K/uL Lymphocytes # (Auto) 2.94 K/uL Monocytes # (Auto) 0.76 K/uL Eosinophils # (Auto) 0.49 K/uL Basophils # (Auto) 0.03 K/uL RDW Standard Deviation 52.4 fL RDW Coefficient of Variation 16.1 % Immature Granulocyte % (Auto) 0.4 % Immature Granulocyte # (Auto) 0.06 K/uL Sodium Level 132 mmol/L Chloride Level 90 mmol/L Carbon Dioxide Level 39 mmol/L Anion Gap 3.0 mmol/L Blood Urea Nitrogen 16 mg/dl Creatinine 0.81 mg/dl Est Creatinine Clear Calc Drug Dose 42.2 ml/min Estimated GFR () 75.2 Estimated GFR (Non- 64.8 BUN/Creatinine Ratio 19.6 Random Glucose 94 mg/dl Calcium Level 8.3 mg/dl Total Bilirubin 0.2 mg/dl Aspartate Amino Transf (AST/SGOT) 24 U/L Alanine Aminotransferase (ALT/SGPT) 16 U/L Alkaline Phosphatase 145 U/L Total Protein 5.7 gm/dl Albumin 1.6 gm/dl Globulin 4.1 gm/dl Albumin/Globulin Ratio 0.4
--- NOTE | 2017-12-05 15:37 | Neurology Progress Notes ---
Neurology Progress Note Date of Service Dec 05, 2017. Mehdi Trujillo is a 87 year old female She is known to neurology but has not had an appointment since 2013, with a PMH of R hip fracture s/p hip replacement in February 2017, DM II, HTN, CKD III, HLD, vulvar cancer, h/o CVA without residual deficit. She was brought to the ED with a draining wound on her R hip. She was recently on a course of bactrim and referred to [facility]. Wound has been draining purulent, serosanguineous fluid continuously several days prior to admission. She was taken to the ED for wash out and hemovac placement on 11/18. Code ronn was called on 12/04/17 in the AM. The CNAs report she became minimally responsive when been cleaned while her eyes were opened. Code was called. MD arrived at bedside. All of her vitals were stable. She states that her eyes are always open when she has a seizure and she is on Keppra for the seizures. She is currently resting comfortably and states the pain is not too bad today. She thinks the plan is to transfer to [facility] or [facility], she was up out of bed today but states she is still very weak denies CP, SOB, abdominal pain, N, V. Objective Date Time Temp Pulse Resp B/P (MAP) Pulse Ox O2 Delivery O2 Flow Rate FiO2 12/05/17 11:13 64 20 91 Nasal Cannula 2.0 12/05/17 08:10 69 119/82 (94) 12/05/17 08:00 Nasal Cannula 4.0 12/05/17 07:48 106/54 (71) 91 2.0 12/05/17 07:46 36.3 68 16 126/65 (85) 91 Nasal Cannula 2.0 12/05/17 07:06 62 20 97 Nasal Cannula 2.0 12/04/17 23:20 36.4 62 16 144/69 (94) 97 Nasal Cannula 4.0 12/04/17 23:15 Nasal Cannula 4.0 12/04/17 21:09 62 118/56 (76) 12/04/17 20:39 62 20 95 Nasal Cannula 4.0 12/04/17 18:35 Nasal Cannula 4.0 12/04/17 16:07 36.4 62 16 123/61 (81) 95 Nasal Cannula 4.0 Last 24 Hours Test 12/04/17 17:20 12/04/17 20:48 12/05/17 05:22 Bedside Glucose 171 mg/dl 220 mg/dl White Blood Count 16.23 K/uL Red Blood Count 3.10 M/uL Hemoglobin 9.1 g/dL Hematocrit 27.8 % Mean Corpuscular Volume 89.7 fL Mean Corpuscular Hemoglobin 29.4 pg Mean Corpuscular Hemoglobin Concent 32.7 g/dl Platelet Count 293 K/uL Mean Platelet Volume 8.7 fL Neutrophils (%) (Auto) 73.6 % Lymphocytes (%) (Auto) 18.1 % Monocytes (%) (Auto) 4.7 % Eosinophils (%) (Auto) 3.0 % Basophils (%) (Auto) 0.2 % Neutrophils # (Auto) 11.95 K/uL Lymphocytes # (Auto) 2.94 K/uL Monocytes # (Auto) 0.76 K/uL Eosinophils # (Auto) 0.49 K/uL Basophils # (Auto) 0.03 K/uL RDW Standard Deviation 52.4 fL RDW Coefficient of Variation 16.1 % Immature Granulocyte % (Auto) 0.4 % Immature Granulocyte # (Auto) 0.06 K/uL Sodium Level 132 mmol/L Potassium Level 3.7 mmol/L Chloride Level 90 mmol/L Carbon Dioxide Level 39 mmol/L Anion Gap 3.0 mmol/L Blood Urea Nitrogen 16 mg/dl Creatinine 0.81 mg/dl Est Creatinine Clear Calc Drug Dose 42.2 ml/min Estimated GFR () 75.2 Estimated GFR (Non- 64.8 BUN/Creatinine Ratio 19.6 Random Glucose 94 mg/dl Calcium Level 8.3 mg/dl Total Bilirubin 0.2 mg/dl Aspartate Amino Transf (AST/SGOT) 24 U/L Alanine Aminotransferase (ALT/SGPT) 16 U/L Alkaline Phosphatase 145 U/L Total Protein 5.7 gm/dl Albumin 1.6 gm/dl Globulin 4.1 gm/dl Albumin/Globulin Ratio 0.4 Imaging: no new imaging Exam: Gen: alert NAD lungs course breath sounds CV RRR neuro date 2017, she is at [facility], 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 UD PRN PO 11/16/17 12:30 12/16/17 12:29 Glucose (Glucose Chew Tab) 4-8 Tablets 4 Tabl... UD PRN PO 11/16/17 12:30 12/16/17 12:29 Dextrose (Dextrose 50% 50ML Syringe) 25-50ML OF 50% DW IV FOR... UD PRN IV 11/16/17 12:30 12/16/17 12:29 Glucagon (Glucagon Inj) 1 mg UD PRN SQ 11/16/17 12:30 12/16/17 12:29 Cholecalciferol (Vitamin D Tab) 1,000 inter.unit DAILY PO 11/17/17 09:00 12/17/17 08:59 12/05/17 08:57 1,000 INTER.UNIT Cyanocobalamin (Vitamin B-12 Tab) 100 mcg DAILY PO 11/17/17 09:00 12/17/17 08:59 12/05/17 08:56 100 MCG Metoprolol Tartrate (Lopressor Tab) 25 mg BID PO 11/16/17 21:00 12/16/17 20:59 12/05/17 08:56 25 MG Simvastatin (Zocor Tab) 20 mg QPM PO 11/16/17 21:00 12/16/17 20:59 12/04/17 21:11 20 MG Zolpidem Tartrate (Ambien Tab) 5 mg HS PRN PO 11/16/17 12:45 12/16/17 12:44 12/04/17 21:29 5 MG Amlodipine Besylate (Norvasc Tab) 10 mg QAM PO 11/17/17 09:00 12/17/17 08:59 12/05/17 08:57 10 MG Polyethylene (Miralax Powder Packet) 17 gm DAILY PRN PO 11/16/17 15:00 12/16/17 14:59 11/23/17 18:05 17 GM Ferrous Sulfate (Feosol Tab) 325 mg TIDM PO 11/16/17 17:45 12/16/17 17:44 12/05/17 13:39 325 MG Citalopram Hydrobromide (celeXA TAB) 20 mg DAILY@1330 PO 11/18/17 13:30 12/18/17 13:29 12/05/17 13:39 20 MG Calcium/Vitamin D (Caltrate Plus Tab) 1 tab BID@0900,1330 PO 11/18/17 09:00 12/18/17 08:59 12/05/17 13:39 1 TAB Magnesium Hydroxide (Milk Of Magnesia Susp) 30 ml Q6H PRN PO 11/18/17 14:45 12/18/17 14:44 11/24/17 09:03 30 ML Al Hydrox/Mg Hydrox/Simethicone (Maalox Max Susp) 15 ml Q4H PRN PO 11/18/17 14:45 12/18/17 14:44 Multivitamins (Multivitamin Tab) 1 tab QAM PO 11/19/17 09:00 12/19/17 08:59 12/05/17 08:58 1 TAB Insulin Aspart (novoLOG ASPART) SLIDING SCALE If C... ACHS SC 11/19/17 08:00 12/19/17 07:59 12/05/17 13:50 8 UNITS Acetaminophen (Tylenol Tab) tylenol 325mg tab 1-2 ... Q4H PRN PO 11/19/17 15:30 12/16/17 11:44 12/01/17 10:51 650 MG Bisacodyl (Dulcolax Supp) 10 mg DAILY PRN [place] 11/21/17 10:00 12/21/17 09:59 11/24/17 11:20 10 MG Folic Acid (Folvite Tab) 1 mg QAM PO 11/22/17 09:00 12/22/17 08:59 12/05/17 08:57 1 MG Enteral Nutritional Formula (Boost Glucose Control) 1 can BID PO 11/21/17 21:00 12/21/17 20:59 12/05/17 09:05 1 CAN Clonidine HCl (Catapres Tab) 0.1 mg Q6H PRN PO 11/21/17 19:15 12/21/17 19:14 Clonidine HCl (Catapres Tab) 0.1 mg BID PO 11/23/17 21:00 12/23/17 20:59 12/05/17 08:56 0.1 MG Senna/Docusate Sodium (Senokot S Tab) 1 tab QAM PO 11/25/17 09:00 12/25/17 08:59 12/05/17 08:56 1 TAB Aspirin (Ecotrin Tab) 81 mg DAILY PO 11/25/17 09:00 12/23/17 08:59 12/05/17 08:55 81 MG Heparin Sodium (Porcine) (Heparin Sq 5000 Unit/0.5ml) 5,000 unit Q12H SQ 11/24/17 11:15 12/24/17 11:14 12/05/17 10:45 5,000 UNIT Pantoprazole Sodium (Protonix Tab) 40 mg BID PO 11/24/17 21:00 12/24/17 20:59 12/05/17 08:56 40 MG Ertapenem 1000 mg/ Sodium Chloride 60 ml @ 120 mls/hr Q24H IV 11/25/17 18:30 01/04/18 18:29 12/04/17 18:01 120 MLS/HR Heparin Sodium (Porcine) (Heparin 10 Unit/ ml 5 ml Flush) 5 ml PRN PRN FLUSH 11/27/17 16:45 12/27/17 16:44 12/05/17 14:18 5 ML Albuterol/ Ipratropium (Duoneb) 3 ml QIDR INH 11/28/17 20:00 12/28/17 19:59 12/05/17 11:12 3 ML Daptomycin 400 mg/ Syringe 8 ml @ 3 mls/min Q24H IV 11/30/17 18:00 01/11/18 13:29 12/04/17 17:56 3 MLS/MIN Ioversol (Optiray 320) 111 ml UD PRN IV 12/04/17 13:45 12/08/17 13:44 Levetiracetam (Keppra Soln) 1,000 mg BID PO 2/20/18 21:00 01/03/18 20:59 12/05/17 08:55 1,000 MG Impression 87 year old female with extensive PMH including seizure disorder Plan 1. Keppra level pendings 2. continue keppra 750 mg BID increased to 1000 mg BID 3. would d/c Ultram can decrease seizure threshold- had been d/c'd 4. may have had seizure due to ongoing infection still elevated WBC- described as her seizure pattern 5. ID direction of treatment however ertapenam can lower seizure threshold if another option should be switched. 6. pain mgt per primary team 7. seizure and fall precautions 8. case mgt working on placement HS does not think she can handle acute rehab and [facility] issues with antibiotics. 9. will need follow up in neurology after discharge from rehab 2-3 weeks Emilia Dia PAC schedule or Emilia Ramires MD will sign off for now call with questions concerns I have seen and discussed above patient with Dr Emilia Ramires, neurology Pt seen and examined, agree with guerrero as above, JODI Ramires MD
[2017-12-05] MEDS: DAPTOmycin IV 400 MG in SYRINGE 0 ML IV SCH (18:32)
[2017-12-05] MEDS: ERTAPENEM IV 1,000 MG in SODIUM CHLORIDE 0.9% 50ML 50 ML IV SCH (18:33)
--- NOTE | 2017-12-05 18:41 | Progress Note ---
Progress Note Date of Service Dec 05, 2017. Progress Note Subjective: Sitting comfortably in chair . Denies pain Physical Exam General: awake, alert, verbal, denies acute pain Lungs: on nasal cannula, fair air entry, lungs sound more clear than yesterday Heart: Regular rate Abdomen: soft, nontender, + bowel sounds Extremities: wound vac over right thigh : krueger Plan: patient has been on multiple days with ertapenem and daptomycin primarily for hip/thigh infection (H/o R hip replacement in February 2017 , continue Dapto and Ertapenem IV via PICC x 6 weeks total from Debridement 11/18/17) As per pulmonary service after review of CTA scan on 12/05/17 there is not enough fluid for thoracentesis Continue wound care and antibiotics for now as primary treatments Generalized seizure disorder history: neurology service on 12/04/17 recommended to hold tramadol to prevent lowering of seizure threshold Electrolytes: replete potassium while on diuresis Anemia likely of chronic disease vs post operative S/P 3 units PRBC on this admission Hg stable FOBT (+) Fe and Folate low, replaced GI consulted: No plans for EGD Resumed ASA continue Protonix 40mg BID MARIELA on CKD III, MARIELA resolved HTN: on metoprolol, amlodipine, Clonidine DM II: A1c of 7.0 in February 2017 holding home meds Continue ISS, lantus Depression history on celexa Right Labial Ulcer: H/O vaginal lesion/possible vulvar neoplasm ff up with [facility] in Jul 2017 Not biopsied but presumed to be malignant Excision not recommended Referral to assessment counselor onc in [place] offered but patient not interested Consulted Physiotherapy Practice Manager 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 Given the length of stay of the patient with slowly healing wound and still elevated leukocytosis, will continue antibiotics as per infectious disease recommendations for now
[2017-12-05] MEDS: ZOLPIDEM TARTRATE 5 MG TAB PO PRN (21:36)
[2017-12-05] MEDS: SIMVASTATIN 20 MG TAB PO SCH (21:38)
[2017-12-06] VITALS (9 sets, daily range): BP systolic 112–144; BP diastolic 54–73; PULSE 67–94; TEMP 36.4–36.9; O2SAT 92–95
[2017-12-06] MEDS: ALBUT/IPRATROP 3MG/0.5MG NEB 3 ML VIAL INH SCH ×4 (07:20→20:36)
[2017-12-06 08:18] LABS: BASO % 0.2 %; BASO ABS # 0.03 K/uL (0-0.2); EOS % 3.7 %; EOS ABS # 0.69 K/uL (0-0.5); HEMATOCRIT 29.5 % (37-47); HEMOGLOBIN 9.8 g/dL (12.0-16.0); IG# 0.07 K/uL (0.00-0.02); LYMPH % 11.5 %; LYMPH ABS # 2.14 K/uL (1.2-3.4); MEAN CELL VOLUME 89.1 fL (80-100); MEAN CORPUSCULAR HEMOGLOBIN 29.6 pg (25-34); MEAN PLATELET VOLUME 8.5 fL (7.4-10.4); MONO % 3.9 %; MONO ABS # 0.73 K/uL (0.11-0.59); NEUT % 80.3 %; NEUT ABS # 14.94 K/uL (1.4-6.5); PLATELET COUNT 304 K/uL (130-400); RED CELL DISTRIBUTION WIDTH CV 15.8 % (11.5-14.5); RED CELL DISTRIBUTION WIDTH SD 51.7 fL (36.4-46.3)
[2017-12-06] MEDS: BOOST GLUCOSE CONTROL PO SCH ×2 (08:34→21:00)
[2017-12-06] MEDS: CALCIUM 600MG + VIT D 400 IU TAB PO SCH ×2 (08:36→12:59)
[2017-12-06] MEDS: AMLODIPINE BESYLATE 5 MG TAB PO SCH (08:36)
[2017-12-06] MEDS: DOCUSATE SODIUM/SENNA 50/8.6MG TAB PO SCH (08:37)
[2017-12-06] MEDS: CHOLECALCIFEROL 1000 INTER.UNIT TAB PO SCH (08:37)
[2017-12-06] MEDS: ASPIRIN 81 MG ECTAB PO SCH (08:38)
[2017-12-06] MEDS: METOPROLOL TARTRATE 25 MG TAB PO SCH ×2 (08:38→21:16)
[2017-12-06] MEDS: PANTOprazole SOD 40 MG TAB PO SCH ×2 (08:38→21:17)
[2017-12-06] MEDS: MULTIVITAMIN TAB PO SCH (08:38)
[2017-12-06 08:39] LABS: MEAN CORPUSCULAR HGB CONC 33.2 g/dl (32-36)
[2017-12-06] MEDS: CLONIDINE HCL 0.1 MG TAB PO SCH ×2 (08:39→21:17)
[2017-12-06] MEDS: CYANOCOBALAMIN 100 MCG TAB (VIT B-12) PO SCH (08:40)
[2017-12-06] MEDS: LEVETIRACETAM ORAL SOLN 100MG/ML PO SCH ×2 (08:41→21:17)
[2017-12-06] MEDS: FERROUS SULFATE 325 MG TAB PO SCH ×3 (08:41→18:17)
[2017-12-06 08:42] LABS: ALBUMIN 1.8 gm/dl (3.4-5.0); CALCIUM 8.7 mg/dl (8.5-10.1); CREATININE 0.78 mg/dl (0.60-1.20); POTASSIUM 4.2 mmol/L (3.5-5.1)
[2017-12-06 08:44] LABS: TOTAL PROTEIN 6.2 gm/dl (6.4-8.2)
[2017-12-06] MEDS: INSULIN GLARGINE SOLOSTAR 100 UNITS/ML 3 ML PEN SC SCH ×2 (08:59→21:31)
[2017-12-06] MEDS: INSULIN ASPART 100 UNITS/ML 3 ML PEN SC SCH ×4 (08:59→21:32)
[2017-12-06] MEDS: ONDANSETRON INJ 2 MG/ML 2 ML VIAL IV PRN (09:04)
[2017-12-06] MEDS: HEPARIN SOD 5000 UNIT/0.5 ML CARP SQ SCH ×2 (11:50→21:33)
[2017-12-06] MEDS: CITALOPRAM 20 MG TAB PO SCH (13:00)
--- NOTE | 2017-12-06 14:09 | Progress Note ---
Subjective Date of Service: Dec 06, 2017. Subjective pt remains on dapto and ertapenem, to be d/c to snf to complete abx. Informed that dapto too expensive. alternative recommended. afebrile. Problem List Medical Problems: (1) Abscess of right hip Status: Acute (2) Altered mental status Status: Acute (3) Bradycardia Status: Acute (4) Cellulitis of right hip Status: Acute (5) Expressive aphasia Status: Acute (6) Fall Status: Acute (7) Possible urinary tract infection Status: Acute (8) Receptive aphasia Status: Acute (9) Skin tear of right hand without complication Status: Acute Objective Vital Signs Date Time Temp Pulse Resp B/P (MAP) Pulse Ox O2 Delivery O2 Flow Rate FiO2 12/06/17 13:47 116/73 (87) 126/66 (86) 144/72 (96) 12/06/17 11:15 70 15 95 Nasal Cannula 3.0 12/06/17 07:41 36.4 67 20 132/66 (88) 93 Nasal Cannula 3.0 12/06/17 07:20 68 16 92 Nasal Cannula 3.0 12/06/17 07:10 Nasal Cannula 3.0 12/05/17 23:15 Nasal Cannula 3.0 12/05/17 22:58 36.3 69 16 131/71 (91) 95 Nasal Cannula 2.0 74 131/69 (89) 73 143/93 (110) 12/05/17 19:06 71 20 89 Nasal Cannula 2.0 12/05/17 15:47 78 20 90 Nasal Cannula 2.0 12/05/17 15:40 Nasal Cannula 2.0 12/05/17 15:38 71 18 114/51 (72) 90 Nasal Cannula 2.0 12/05/17 15:37 66 18 116/69 (85) 93 Nasal Cannula 2.0 12/05/17 15:31 36.3 66 18 134/69 (90) 92 Nasal Cannula 2.0 Laboratory Results Last 24 Hours Test 12/05/17 16:56 12/05/17 20:30 12/06/17 07:47 12/06/17 08:13 Bedside Glucose 223 mg/dl 221 mg/dl 143 mg/dl White Blood Count 18.60 K/uL Red Blood Count 3.31 M/uL Hemoglobin 9.8 g/dL Hematocrit 29.5 % Mean Corpuscular Volume 89.1 fL Mean Corpuscular Hemoglobin 29.6 pg Mean Corpuscular Hemoglobin Concent 33.2 g/dl Platelet Count 304 K/uL Mean Platelet Volume 8.5 fL Neutrophils (%) (Auto) 80.3 % Lymphocytes (%) (Auto) 11.5 % Monocytes (%) (Auto) 3.9 % Eosinophils (%) (Auto) 3.7 % Basophils (%) (Auto) 0.2 % Neutrophils # (Auto) 14.94 K/uL Lymphocytes # (Auto) 2.14 K/uL Monocytes # (Auto) 0.73 K/uL Eosinophils # (Auto) 0.69 K/uL Basophils # (Auto) 0.03 K/uL RDW Standard Deviation 51.7 fL RDW Coefficient of Variation 15.8 % Immature Granulocyte % (Auto) 0.4 % Immature Granulocyte # (Auto) 0.07 K/uL Sodium Level 130 mmol/L Potassium Level 4.2 mmol/L Chloride Level 90 mmol/L Carbon Dioxide Level 36 mmol/L Anion Gap 4.0 mmol/L Blood Urea Nitrogen 15 mg/dl Creatinine 0.78 mg/dl Est Creatinine Clear Calc Drug Dose 44.8 ml/min Estimated GFR () 78.7 Estimated GFR (Non- 67.9 BUN/Creatinine Ratio 19.7 Random Glucose 125 mg/dl Calcium Level 8.7 mg/dl Total Bilirubin 0.2 mg/dl Aspartate Amino Transf (AST/SGOT) 22 U/L Alanine Aminotransferase (ALT/SGPT) 17 U/L Alkaline Phosphatase 90 U/L Total Protein 6.2 gm/dl Albumin 1.8 gm/dl Globulin 4.4 gm/dl Albumin/Globulin Ratio 0.4 Assessment and Plan (1) Cellulitis of right hip Assessment & Plan: she will require six weeks from date of OR (11/18). She can continue on ertapenem, has pcn allergy. If dapto co - pay too high, can transition to IV vanco. will need weekly cbc,cmp, esr, vanco trough - maintain 15-20. (2) Abscess of right hip Continued [facility] stay due to: inadequate oral pain control, ambulation difficulties Discharge planning: rehab hospital
[2017-12-06] MEDS ORDERED: VANCOMYCIN CONSULT ACTIVE PRN (15:15)
[2017-12-06] MEDS ORDERED: VANCOMYCIN IV 0 MG in SODIUM CHLORIDE 0.9% 500ML 500 ML IV SCH (15:15)
--- NOTE | 2017-12-06 15:48 | Palliative Care Progress Note ---
Palliative Care Progress Note Date of Service Dec 06, 2017. Subjective Pt evaluation today including: conversation w/ patient, physical exam, chart review, lab review Pain: unchanged, c/o perineal pain with sitting PO Intake: fair Voiding: krueger catheter in place Pt reports she is eating and drinking " pretty good". She c/o pain when sitting - family brought in donut from home. 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) Neurologic: + weakness, + balance problems Psychiatric: No anxiety Heme: No abnormal bleeding/bruising Endo: + fatigue Skin: + new/changing skin lesions Objective Vital Signs Date Time Temp Pulse Resp B/P (MAP) Pulse Ox O2 Delivery O2 Flow Rate FiO2 12/06/17 15:36 70 15 93 Nasal Cannula 3.0 12/06/17 14:56 36.4 94 18 112/65 (81) 93 3.0 12/06/17 13:47 116/73 (87) 126/66 (86) 144/72 (96) 12/06/17 11:15 70 15 95 Nasal Cannula 3.0 12/06/17 07:41 36.4 67 20 132/66 (88) 93 Nasal Cannula 3.0 12/06/17 07:20 68 16 92 Nasal Cannula 3.0 12/06/17 07:10 Nasal Cannula 3.0 12/05/17 23:15 Nasal Cannula 3.0 12/05/17 22:58 36.3 69 16 131/71 (91) 95 Nasal Cannula 2.0 74 131/69 (89) 73 143/93 (110) 12/05/17 19:06 71 20 89 Nasal Cannula 2.0 12/05/17 15:47 78 20 90 Nasal Cannula 2.0 Physical Exam General Appearance: no apparent distress Eyes: EOMI ENT: hearing grossly normal Neck: no JVD Respiratory/Chest: + pertinent finding (rhonchi bialterally - much improved after diuresis) Cardiovascular: regular rate, rhythm, no edema Abdomen: non tender Extremities: no pedal edema, + pertinent finding (R hip wound) Neurologic/Psychiatric: + motor weakness Skin: + pertinent finding (wound vac in place - photos of wound show good granulation tissue - drainage is serosanguinous) Laboratory Results Last 24 Hours Test 12/05/17 16:56 12/05/17 20:30 12/06/17 07:47 12/06/17 08:13 Bedside Glucose 223 mg/dl 221 mg/dl 143 mg/dl White Blood Count 18.60 K/uL Red Blood Count 3.31 M/uL Hemoglobin 9.8 g/dL Hematocrit 29.5 % Mean Corpuscular Volume 89.1 fL Mean Corpuscular Hemoglobin 29.6 pg Mean Corpuscular Hemoglobin Concent 33.2 g/dl Platelet Count 304 K/uL Mean Platelet Volume 8.5 fL Neutrophils (%) (Auto) 80.3 % Lymphocytes (%) (Auto) 11.5 % Monocytes (%) (Auto) 3.9 % Eosinophils (%) (Auto) 3.7 % Basophils (%) (Auto) 0.2 % Neutrophils # (Auto) 14.94 K/uL Lymphocytes # (Auto) 2.14 K/uL Monocytes # (Auto) 0.73 K/uL Eosinophils # (Auto) 0.69 K/uL Basophils # (Auto) 0.03 K/uL RDW Standard Deviation 51.7 fL RDW Coefficient of Variation 15.8 % Immature Granulocyte % (Auto) 0.4 % Immature Granulocyte # (Auto) 0.07 K/uL Sodium Level 130 mmol/L Potassium Level 4.2 mmol/L Chloride Level 90 mmol/L Carbon Dioxide Level 36 mmol/L Anion Gap 4.0 mmol/L Blood Urea Nitrogen 15 mg/dl Creatinine 0.78 mg/dl Est Creatinine Clear Calc Drug Dose 44.8 ml/min Estimated GFR () 78.7 Estimated GFR (Non- 67.9 BUN/Creatinine Ratio 19.7 Random Glucose 125 mg/dl Calcium Level 8.7 mg/dl Total Bilirubin 0.2 mg/dl Aspartate Amino Transf (AST/SGOT) 22 U/L Alanine Aminotransferase (ALT/SGPT) 17 U/L Alkaline Phosphatase 90 U/L Total Protein 6.2 gm/dl Albumin 1.8 gm/dl Globulin 4.4 gm/dl Albumin/Globulin Ratio 0.4 Assessment and Plan (1) Abscess of right hip Status: Acute Assessment & Plan: S/P surgical debridement - followed by wound care - wound vac in place. 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 Palliative Performance Scale: 40 % Continued [facility] stay due to: inadequate oral pain control, ambulation difficulties Discharge planning: rehab hospital Counseling and Coordination Total time 25 min with > 50 % of time spent at bedside providing support to pt and answering all her questions
--- NOTE | 2017-12-06 15:55 | Pharmacy Progress Note ---
Pharmacy Antibiotic Consult Date of Service: Dec 06, 2017. Pharmacy Dosing Scope Pharmacy is consulted to initiate Vancomycin IV dosing therapy, order appropriate labs and adjust drug dose/frequency. Subjective The patient is a 87 year old female admitted on Nov 16, 2017 at 11:30. Objective Height (Feet): 5 Height (Inches): 2.00 Weight (Kilograms): 67.132 Lab Results (24hrs): Test 12/05/17 20:30 12/06/17 07:47 12/06/17 08:13 Bedside Glucose 221 mg/dl (70-90) 143 mg/dl (70-90) White Blood Count 18.60 K/uL (4.8-10.8) Red Blood Count 3.31 M/uL (4.2-5.4) Hemoglobin 9.8 g/dL (12.0-16.0) Hematocrit 29.5 % (37-47) Mean Corpuscular Volume 89.1 fL (80-100) Mean Corpuscular Hemoglobin 29.6 pg (25-34) Mean Corpuscular Hemoglobin Concent 33.2 g/dl (32-36) Platelet Count 304 K/uL (130-400) Mean Platelet Volume 8.5 fL (7.4-10.4) Neutrophils (%) (Auto) 80.3 % Lymphocytes (%) (Auto) 11.5 % Monocytes (%) (Auto) 3.9 % Eosinophils (%) (Auto) 3.7 % Basophils (%) (Auto) 0.2 % Neutrophils # (Auto) 14.94 K/uL (1.4-6.5) Lymphocytes # (Auto) 2.14 K/uL (1.2-3.4) Monocytes # (Auto) 0.73 K/uL (0.11-0.59) Eosinophils # (Auto) 0.69 K/uL (0-0.5) Basophils # (Auto) 0.03 K/uL (0-0.2) RDW Standard Deviation 51.7 fL (36.4-46.3) RDW Coefficient of Variation 15.8 % (11.5-14.5) Immature Granulocyte % (Auto) 0.4 % Immature Granulocyte # (Auto) 0.07 K/uL (0.00-0.02) Sodium Level 130 mmol/L (136-145) Potassium Level 4.2 mmol/L (3.5-5.1) Chloride Level 90 mmol/L (98-107) Carbon Dioxide Level 36 mmol/L (21-32) Anion Gap 4.0 mmol/L (3-11) Blood Urea Nitrogen 15 mg/dl (7-18) Creatinine 0.78 mg/dl (0.60-1.20) Est Creatinine Clear Calc Drug Dose 44.8 ml/min Estimated GFR () 78.7 Estimated GFR (Non- 67.9 BUN/Creatinine Ratio 19.7 (10-20) Random Glucose 125 mg/dl (70-99) Calcium Level 8.7 mg/dl (8.5-10.1) Total Bilirubin 0.2 mg/dl (0.2-1) Aspartate Amino Transf (AST/SGOT) 22 U/L (15-37) Alanine Aminotransferase (ALT/SGPT) 17 U/L (12-78) Alkaline Phosphatase 90 U/L (45-117) Total Protein 6.2 gm/dl (6.4-8.2) Albumin 1.8 gm/dl (3.4-5.0) Globulin 4.4 gm/dl (2.5-4.0) Albumin/Globulin Ratio 0.4 (0.9-2) Assessment & Plan Assessment 87 year old female with cellulitis and abscess of right hip. Currently on Invanz and daptomycin transitioning to invanz and vancomycin per ID recommendation for discharge to SNF. Renal function at baseline. Culture grew Peptostreptococcus, actinomyces, and Prevotella Estimated T1/2~17 hours. Will attempt 24 hours dosing for ease of administration at [facility]. Pt is not likely to accumulate as renal function is good and BMI=27.1. Requires a total of 6 weeks of antibiotic therapy. Plan Vancomycin * Loading dose: 1750mg (26mg/kg) * Maintenance dose: 1250mg (18mg/kg) q 24 hours. * Goal trough for bone/joint infection: 15-20 mcg/mL * Trough level ordered for 12/09 @0930 Pharmacy will continue to follow and will adjust dose/frequency as necessary. Thank you
[2017-12-06] MEDS ORDERED: VANCOMYCIN IV 1,750 MG in SODIUM CHLORIDE 0.9% 500ML 500 ML IV ONE (16:00)
--- NOTE | 2017-12-06 16:27 | Progress Note ---
Progress Note Date of Service Dec 06, 2017. Progress Note Subjective: Sitting comfortably in chair . Denies pain Physical Exam General: awake, alert, verbal, denies acute pain Lungs: on nasal cannula, fair air entry Heart: Regular rate Abdomen: soft, nontender, + bowel sounds Extremities: wound vac over right thigh : krueger patient has been on multiple days with ertapenem and daptomycin primarily for hip/thigh infection (H/o R hip replacement in February 2017) As per infectious disease consult, patient requires six weeks from date of OR () patient has been on daptomycin and ertapenem - for discharge with outpatient antibiotics the plan is ertapenem and vancomycin hospital pharmacy notified hat daptomycin to be stopped on 12/06/17 and vancomycin to be started upon discharge the patient will need will need weekly cbc,cmp, esr, vanco trough - maintain 15-20. 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 but patient has declined further workup Anemia likely of chronic disease vs post operative S/P 3 units PRBC on this admission Hg stable FOBT (+) Fe and Folate low, replaced GI consulted: No plans for EGD continue ASA, Protonix 40mg BID MARIELA on CKD III, MARIELA resolved HTN: on metoprolol, amlodipine, Clonidine DM II: A1c of 7.0 in February 2017 holding home meds Continue ISS, lantus Depression history on celexa H/o CVA: Stable continue ASA DVT Px: Heparin SQ Code status: DNR Palliative care service following patient Disposition: As per patient's son Tyree [phone] goals of care is from hospitalization to physical rehabilitation
[2017-12-06] MEDS: ERTAPENEM IV 1,000 MG in SODIUM CHLORIDE 0.9% 50ML 50 ML IV SCH (18:21)
[2017-12-06] MEDS: SIMVASTATIN 20 MG TAB PO SCH (21:16)
[2017-12-06] MEDS: ZOLPIDEM TARTRATE 5 MG TAB PO PRN (21:29)
[2017-12-06] MEDS: ACETAMINOPHEN 325 MG TAB PO PRN (22:59)
[2017-12-07] VITALS (8 sets, daily range): BP systolic 82–151; BP diastolic 41–65; PULSE 67–95; TEMP 36.6–36.9; O2SAT 91–98
[2017-12-07] MEDS: ONDANSETRON INJ 2 MG/ML 2 ML VIAL IV PRN (00:14)
[2017-12-07 06:49] LABS: CREATININE 0.77 mg/dl (0.60-1.20)
[2017-12-07] MEDS: ALBUT/IPRATROP 3MG/0.5MG NEB 3 ML VIAL INH SCH ×4 (07:21→20:04)
[2017-12-07] MEDS: VANCOMYCIN IV 1,250 MG in SODIUM CHLORIDE 0.9% 250ML 250 ML IV SCH (09:36)
[2017-12-07] MEDS: BOOST GLUCOSE CONTROL PO SCH ×2 (09:36→22:12)
[2017-12-07] MEDS: LEVETIRACETAM ORAL SOLN 100MG/ML PO SCH ×2 (09:37→22:14)
[2017-12-07] MEDS: INSULIN ASPART 100 UNITS/ML 3 ML PEN SC SCH ×4 (09:38→22:18)
[2017-12-07] MEDS: FERROUS SULFATE 325 MG TAB PO SCH ×3 (09:39→18:49)
[2017-12-07] MEDS: INSULIN GLARGINE SOLOSTAR 100 UNITS/ML 3 ML PEN SC SCH ×2 (09:39→22:19)
[2017-12-07] MEDS: AMLODIPINE BESYLATE 5 MG TAB PO SCH (09:40)
[2017-12-07] MEDS: DOCUSATE SODIUM/SENNA 50/8.6MG TAB PO SCH (09:40)
[2017-12-07] MEDS: CLONIDINE HCL 0.1 MG TAB PO SCH ×2 (09:40→22:12)
[2017-12-07] MEDS: MULTIVITAMIN TAB PO SCH (09:40)
[2017-12-07] MEDS: CALCIUM 600MG + VIT D 400 IU TAB PO SCH ×2 (09:40→13:12)
[2017-12-07] MEDS: CHOLECALCIFEROL 1000 INTER.UNIT TAB PO SCH (09:41)
[2017-12-07] MEDS: CYANOCOBALAMIN 100 MCG TAB (VIT B-12) PO SCH (09:41)
[2017-12-07] MEDS: ASPIRIN 81 MG ECTAB PO SCH (09:41)
[2017-12-07] MEDS: METOPROLOL TARTRATE 25 MG TAB PO SCH ×2 (09:41→22:13)
[2017-12-07] MEDS: PANTOprazole SOD 40 MG TAB PO SCH ×2 (09:41→22:13)
[2017-12-07] MEDS: HEPARIN SOD 5000 UNIT/0.5 ML CARP SQ SCH ×2 (09:48→23:39)
[2017-12-07] MEDS: CITALOPRAM 20 MG TAB PO SCH (13:12)
--- NOTE | 2017-12-07 14:17 | DIAGNOSTIC IMAGING REPORT ---
CHEST 2 VIEWS ROUTINE CLINICAL HISTORY: follow up CXR for infiltrates previously dyspnea COMPARISON STUDY: 12/04/2017 FINDINGS: Moderate interval increase in cardiac size. Slight increase in volume of a left basilar pleural effusion. Small right basilar pleural effusion. Superimposed components of congestive failure. A be developing. IMPRESSION: Unchanged left basilar parenchymal infiltrate. Developing superimposed component of congestive heart failure. The above report was generated using voice recognition software. It may contain grammatical, syntax or spelling errors. Electronically signed by: Gael Langley M.D. 12/07/2017 2:16 PM Dictated Date/Time: 12/07/2017 2:14 PM
--- NOTE | 2017-12-07 16:18 | Progress Note ---
Internal Med Progress Note Date of Service: Dec 07, 2017. Provider Documentation: Subjective: Sitting comfortably in bed. Patient asks why she has vaginal pain. Explained to patient that she was asked about being evaluated for vaginal malignancy workup in the past but she declined. Asked patient whether she would like workup to be done such as biopsy, patient declined. Physical Exam General: awake, alert, verbal, denies acute pain Lungs: on nasal cannula, fair air entry Heart: Regular rate Abdomen: soft, nontender, + bowel sounds Extremities: wound vac over right thigh : krueger ASSESSMENT & PLAN: patient has been on multiple days with ertapenem and daptomycin primarily for hip/thigh infection (H/o R hip replacement in February 2017) As per infectious disease consult, patient requires six weeks from date of OR () patient has been on daptomycin and ertapenem - for discharge with outpatient antibiotics the plan is ertapenem and vancomycin hospital pharmacy notified that daptomycin to be stopped on 12/06/17 and vancomycin to be started upon discharge the patient will need weekly cbc,cmp, esr, vanco trough - maintain 15-20. Continue wound care / wound vac Respiratory: -As per pulmonary service after review of CTA scan on 12/05/17 there is not enough fluid for thoracentesis in regards to bibasilar effusions vs atelectasis -Follow up CXR on 12/07/17: Moderate interval increase in cardiac size. Slight increase in volume of a left basilar pleural effusion. Small right basilar pleural effusion. Superimposed components of congestive failure. 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 but patient has declined further workup Pain management; primarily from vulvar area and as per palliative care service, patient feels better when sitting on a doughnut cushion Generalized seizure disorder history: neurology service on 12/04/17 recommended to hold tramadol to prevent lowering of seizure threshold Anemia likely of chronic disease vs post operative S/P 3 units PRBC on this admission Fe and Folate supplemented FOBT (+) GI consulted: No plans for EGD continue ASA, Protonix 40mg BID MARIELA on CKD III, MARIELA resolved HTN: on metoprolol, amlodipine, Clonidine DM II: hbA1c of 7.0 in February 2017 holding home meds Continue ISS, lantus Depression history: on celexa H/o CVA: Stable, continue ASA DVT Px: Heparin SQ Code status: DNR Palliative care service following patient Disposition: As per patient's son Tyree [phone] goals of care is from hospitalization to physical rehabilitation Case management notes: [facility] can accept patient once the facility has wound vac at facility Vital Signs: Date Time Temp Pulse Resp B/P (MAP) Pulse Ox O2 Delivery O2 Flow Rate FiO2 12/07/17 16:05 36.8 76 18 117/65 (82) 91 Nasal Cannula 2.0 75 119/60 (79) 77 87/64 (72) 12/07/17 15:43 67 16 95 Nasal Cannula 2.0 12/07/17 11:05 76 16 95 Nasal Cannula 2.0 12/07/17 08:30 Nasal Cannula 3.0 12/07/17 07:26 36.9 70 15 151/63 (92) 98 Nebulizer 12/07/17 07:21 74 16 93 Nasal Cannula 3.0 12/06/17 22:55 36.9 69 16 134/54 (80) 93 Nasal Cannula 2.0 12/06/17 20:36 72 16 95 Nasal Cannula 3.0 12/06/17 19:30 Nasal Cannula 3.0 Lab Results: Results Past 24 Hours Test 12/06/17 16:51 12/06/17 20:28 12/07/17 05:57 12/07/17 08:27 Range/Units Bedside Glucose 179 161 113 70-90 mg/dl Creatinine 0.77 0.60-1.20 mg/dl Est Creatinine Clear Calc Drug Dose 45.4 ml/min Estimated GFR () 79.9 Estimated GFR (Non- 68.9
[2017-12-07] MEDS ORDERED: FUROSEMIDE INJ 40 MG in SYRINGE 0 ML IV ONE (17:00)
--- NOTE | 2017-12-07 17:13 | Palliative Care Progress Note ---
Palliative Care Progress Note Date of Service Dec 07, 2017. Subjective Pt evaluation today including: conversation w/ patient, physical exam, chart review, conversation w/ interior design consultant Pain: tolerable till she is sitting PO Intake: fair Voiding: krueger catheter in place Pt comfortable until in more raised or upright position - pt had been doing well at home using donut cushion when sitting. Review of Systems Constitutional: No fever Eyes: No worsening of vision ENT: No hearing loss Respiratory: + cough (non productive - improving per pt) Cardiac: No chest pain Abdomen: No nausea Female : + problem reported (vulvar pain with pressure ) Neurologic: + memory loss Psychiatric: No anxiety Skin: No new/changing skin lesions Objective Vital Signs Date Time Temp Pulse Resp B/P (MAP) Pulse Ox O2 Delivery O2 Flow Rate FiO2 12/07/17 16:05 36.8 76 18 117/65 (82) 91 Nasal Cannula 2.0 75 119/60 (79) 77 87/64 (72) 12/07/17 15:43 67 16 95 Nasal Cannula 2.0 12/07/17 11:05 76 16 95 Nasal Cannula 2.0 12/07/17 08:30 Nasal Cannula 3.0 12/07/17 07:26 36.9 70 15 151/63 (92) 98 Nebulizer 12/07/17 07:21 74 16 93 Nasal Cannula 3.0 12/06/17 22:55 36.9 69 16 134/54 (80) 93 Nasal Cannula 2.0 12/06/17 20:36 72 16 95 Nasal Cannula 3.0 12/06/17 19:30 Nasal Cannula 3.0 Physical Exam General Appearance: no apparent distress Eyes: EOMI ENT: hearing grossly normal Neck: no JVD Respiratory/Chest: no respiratory distress, + decreased breath sounds, + crackles, + wheezing Cardiovascular: regular rate, rhythm Abdomen: non tender Extremities: + pertinent finding (wound vac in place R hip) Neurologic/Psychiatric: alert Skin: warm/dry Laboratory Results Last 24 Hours Test 12/06/17 20:28 12/07/17 05:57 12/07/17 08:27 Bedside Glucose 161 mg/dl 113 mg/dl Creatinine 0.77 mg/dl Est Creatinine Clear Calc Drug Dose 45.4 ml/min Estimated GFR () 79.9 Estimated GFR (Non- 68.9 Assessment and Plan (1) Abscess of right hip Status: Acute Assessment & Plan: s/p surgical debridement - wound vac in place (2) Depression Status: Chronic Assessment & Plan: Controlled on Celexa (3) Cerebrovascular disease Status: Chronic Assessment & Plan: + cognitive deficits, on 81 mg ASA (4) Anxiety disorder Status: Chronic Assessment & Plan: Doing well on current dose of Celexa (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 Family and pt wish to pursue rehab , pt's goal is to return home. Awaiting bed availability Palliative Performance Scale: 40 % Continued [facility] stay due to: inadequate oral pain control, ambulation difficulties Discharge planning: rehab hospital, residential facility Counseling and Coordination Total time 25 min with > 50 % of time spent at bedside with pt, no family present
[2017-12-07] MEDS: POLYETHYLENE (MIRALAX) 17 GM PACK PO PRN (18:49)
[2017-12-07] MEDS: ERTAPENEM IV 1,000 MG in SODIUM CHLORIDE 0.9% 50ML 50 ML IV SCH (18:58)
[2017-12-07] MEDS: SIMVASTATIN 20 MG TAB PO SCH (22:14)
[2017-12-08] VITALS (8 sets, daily range): BP systolic 111–150; BP diastolic 66–89; PULSE 62–79; TEMP 36.4–36.7; O2SAT 90–97
[2017-12-08 06:41] LABS: CREATININE 0.81 mg/dl (0.60-1.20)
[2017-12-08] MEDS: ALBUT/IPRATROP 3MG/0.5MG NEB 3 ML VIAL INH SCH ×4 (07:42→20:17)
[2017-12-08] MEDS: BOOST GLUCOSE CONTROL PO SCH ×2 (09:23→20:46)
[2017-12-08] MEDS: DOCUSATE SODIUM/SENNA 50/8.6MG TAB PO SCH (09:24)
[2017-12-08] MEDS: PANTOprazole SOD 40 MG TAB PO SCH ×2 (09:24→21:31)
[2017-12-08] MEDS: CYANOCOBALAMIN 100 MCG TAB (VIT B-12) PO SCH (09:25)
[2017-12-08] MEDS: MULTIVITAMIN TAB PO SCH (09:26)
[2017-12-08] MEDS: FUROSEMIDE 20 MG TAB PO SCH (09:26)
[2017-12-08] MEDS: LEVETIRACETAM ORAL SOLN 100MG/ML PO SCH ×2 (09:26→21:32)
[2017-12-08] MEDS: FERROUS SULFATE 325 MG TAB PO SCH ×3 (09:27→18:33)
[2017-12-08] MEDS: CLONIDINE HCL 0.1 MG TAB PO SCH ×2 (09:27→21:31)
[2017-12-08] MEDS: AMLODIPINE BESYLATE 5 MG TAB PO SCH (09:27)
[2017-12-08] MEDS: CHOLECALCIFEROL 1000 INTER.UNIT TAB PO SCH (09:27)
[2017-12-08] MEDS: CALCIUM 600MG + VIT D 400 IU TAB PO SCH ×2 (09:27→13:35)
[2017-12-08] MEDS: ASPIRIN 81 MG ECTAB PO SCH (09:28)
[2017-12-08] MEDS: METOPROLOL TARTRATE 25 MG TAB PO SCH ×2 (09:29→21:31)
[2017-12-08] MEDS: VANCOMYCIN IV 1,250 MG in SODIUM CHLORIDE 0.9% 250ML 250 ML IV SCH (09:56)
[2017-12-08] MEDS: INSULIN ASPART 100 UNITS/ML 3 ML PEN SC SCH ×4 (10:01→21:41)
[2017-12-08] MEDS: INSULIN GLARGINE SOLOSTAR 100 UNITS/ML 3 ML PEN SC SCH ×2 (10:02→21:42)
[2017-12-08] MEDS: HEPARIN SOD 5000 UNIT/0.5 ML CARP SQ SCH ×2 (12:19→21:42)
[2017-12-08] MEDS: CITALOPRAM 20 MG TAB PO SCH (13:35)
[2017-12-08] MEDS: ERTAPENEM IV 1,000 MG in SODIUM CHLORIDE 0.9% 50ML 50 ML IV SCH (18:33)
--- NOTE | 2017-12-08 19:06 | Progress Note ---
Internal Med Progress Note Date of Service: Dec 08, 2017. Provider Documentation: Subjective: Patient reports that for past nights she has been having hallucinations but it is unclear whether she is having bad dreams. active medications reviewed. will stop ambien for now Physical Exam General: awake, alert, verbal, denies acute pain Lungs: on nasal cannula, fair air entry Heart: Regular rate Abdomen: soft, nontender, + bowel sounds Extremities: wound vac over right thigh : krueger ASSESSMENT & PLAN: patient has been on multiple days with ertapenem and daptomycin primarily for hip/thigh infection (H/o R hip replacement in February 2017) As per infectious disease consult, patient requires six weeks from date of OR () patient has been on daptomycin and ertapenem - for discharge with outpatient antibiotics the plan is ertapenem and vancomycin hospital pharmacy notified that daptomycin to be stopped on 12/06/17 and vancomycin to be started upon discharge the patient will need weekly cbc,cmp, esr, vanco trough - maintain 15-20. Continue wound care / wound vac Respiratory: -As per pulmonary service after review of CTA scan on 12/05/17 there is not enough fluid for thoracentesis in regards to bibasilar effusions vs atelectasis -Follow up CXR on 12/07/17: Moderate interval increase in cardiac size. Slight increase in volume of a left basilar pleural effusion. Small right basilar pleural effusion. Superimposed components of congestive failure. 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 but patient has declined further workup Pain management; primarily from vulvar area and as per palliative care service, patient feels better when sitting on a doughnut cushion Generalized seizure disorder history: neurology service on 12/04/17 recommended to hold tramadol to prevent lowering of seizure threshold Anemia likely of chronic disease vs post operative S/P 3 units PRBC on this admission Fe and Folate supplemented FOBT (+) GI consulted: No plans for EGD continue ASA, Protonix 40mg BID MARIELA on CKD III, MARIELA resolved HTN: on metoprolol, amlodipine, Clonidine DM II: hbA1c of 7.0 in February 2017 holding home meds Continue ISS, lantus Depression history: on celexa Hallucinations at night: Hold off Ambien for now H/o CVA: Stable, continue ASA DVT Px: Heparin SQ Code status: DNR Palliative care service following patient Disposition: As per patient's son Tyree [phone] goals of care is from hospitalization to physical rehabilitation Case management notes: [facility] can accept patient once the facility has wound vac at facility Vital Signs: Date Time Temp Pulse Resp B/P (MAP) Pulse Ox O2 Delivery O2 Flow Rate FiO2 12/08/17 17:05 97 Nasal Cannula 4.0 12/08/17 15:37 36.4 79 16 126/76 (93) 90 Nasal Cannula 4.0 12/08/17 15:15 Nasal Cannula 3.0 12/08/17 14:55 77 16 95 Nasal Cannula 2.0 12/08/17 12:02 63 16 97 Nasal Cannula 3.0 12/08/17 09:15 Nasal Cannula 3.0 12/08/17 07:44 66 14 96 Nasal Cannula 3.0 12/08/17 06:58 36.6 65 20 150/89 (109) 96 Nasal Cannula 3.0 12/08/17 00:55 36.7 62 18 111/66 (81) 97 Nasal Cannula 3.0 12/07/17 23:59 82/41 (55) 12/07/17 23:59 95 95/54 (68) 95 Nasal Cannula 3.0 12/07/17 23:50 Nasal Cannula 3.0 12/07/17 23:45 36.6 69 18 94/44 (61) 94 Nasal Cannula 3.0 12/07/17 20:06 71 14 93 Nasal Cannula 3.0 Lab Results: Results Past 24 Hours Test 12/07/17 20:26 12/08/17 05:25 12/08/17 08:04 12/08/17 12:11 Range/Units Bedside Glucose 201 94 140 70-90 mg/dl Creatinine 0.81 0.60-1.20 mg/dl Est Creatinine Clear Calc Drug Dose 43.1 ml/min Estimated GFR () 75.2 Estimated GFR (Non- 64.8 Test 12/08/17 17:05 Range/Units Bedside Glucose 166 70-90 mg/dl
[2017-12-08] MEDS ORDERED: NURSING VERBAL MED ORDER ONE (19:45)
[2017-12-08] MEDS ORDERED: ZOLPIDEM TARTRATE 5 MG TAB PO PRN (19:45)
[2017-12-08] MEDS: SIMVASTATIN 20 MG TAB PO SCH (21:31)
[2017-12-09] VITALS (8 sets, daily range): BP systolic 119–151; BP diastolic 60–70; PULSE 62–70; TEMP 36.4–36.9; O2SAT 95–97
[2017-12-09 06:13] LABS: CREATININE 0.75 mg/dl (0.60-1.20)
[2017-12-09] MEDS: ALBUT/IPRATROP 3MG/0.5MG NEB 3 ML VIAL INH SCH ×4 (07:13→19:11)
[2017-12-09] MEDS: CALCIUM 600MG + VIT D 400 IU TAB PO SCH ×2 (08:20→13:06)
[2017-12-09] MEDS: PANTOprazole SOD 40 MG TAB PO SCH ×2 (08:29→21:26)
[2017-12-09] MEDS: FERROUS SULFATE 325 MG TAB PO SCH ×3 (08:29→18:13)
[2017-12-09] MEDS: DOCUSATE SODIUM/SENNA 50/8.6MG TAB PO SCH (08:29)
[2017-12-09] MEDS: LEVETIRACETAM ORAL SOLN 100MG/ML PO SCH ×2 (08:30→21:27)
[2017-12-09] MEDS: CLONIDINE HCL 0.1 MG TAB PO SCH ×2 (08:30→21:25)
[2017-12-09] MEDS: MULTIVITAMIN TAB PO SCH (08:30)
[2017-12-09] MEDS: METOPROLOL TARTRATE 25 MG TAB PO SCH ×2 (08:30→21:24)
[2017-12-09] MEDS: CHOLECALCIFEROL 1000 INTER.UNIT TAB PO SCH (08:30)
[2017-12-09] MEDS: AMLODIPINE BESYLATE 5 MG TAB PO SCH (08:31)
[2017-12-09] MEDS: ASPIRIN 81 MG ECTAB PO SCH (08:31)
[2017-12-09] MEDS: FUROSEMIDE 20 MG TAB PO SCH (08:31)
[2017-12-09] MEDS: CYANOCOBALAMIN 100 MCG TAB (VIT B-12) PO SCH (08:31)
[2017-12-09] MEDS: CITALOPRAM 20 MG TAB PO SCH (08:32)
[2017-12-09] MEDS: INSULIN ASPART 100 UNITS/ML 3 ML PEN SC SCH ×4 (08:46→21:18)
[2017-12-09] MEDS: INSULIN GLARGINE SOLOSTAR 100 UNITS/ML 3 ML PEN SC SCH ×2 (08:47→21:19)
[2017-12-09] MEDS: BOOST GLUCOSE CONTROL PO SCH ×2 (08:51→21:22)
[2017-12-09] MEDS ORDERED: VANCOMYCIN TROUGH ONE (09:30)
[2017-12-09] MEDS: VANCOMYCIN IV 1,250 MG in SODIUM CHLORIDE 0.9% 250ML 250 ML IV SCH (11:17)
[2017-12-09] MEDS: HEPARIN SOD 5000 UNIT/0.5 ML CARP SQ SCH ×2 (11:25→23:48)
--- NOTE | 2017-12-09 12:54 | Pharmacy Progress Note ---
Pharmacy Abx Dose Short Note Date of Service Dec 09, 2017. Assessment & Plan Assessment 87 year old female receiving Vancomycin and Invanz for treatment of bone/joint infection (abscess/cellulitis of R hip) Pt transitioned from daptomycin to vancomycin for discharge placement/ outpatient treatment. Day # 4 of antimicrobial therapy. Item Value Date Time Vancomycin Level Trough 18.6 mcg/ml 12/09/17 0925 Plan Vancomycin * Trough level of 18.6 mcg/mL is therapeutic, although level is slightly prior to steady state. * Continue dose of 1250 mg IV every 24 hours * Goal trough level for bone/joint infection : 15 to 20 mcg/mL * Repeat trough level will be ordered if pt is still here in 48 to 72 hours to ensure proper steady state concentration. Pharmacy will continue to follow and will adjust dose/frequency as necessary. Thank you.
--- NOTE | 2017-12-09 13:32 | Progress Note ---
Internal Med Progress Note Date of Service: Dec 09, 2017. Provider Documentation: Subjective: Yesterday night, patient insisted on having ambien for sleep. Patient was transferred to different bed in hospital. In the morning, patient was awake and alert and reported that she had some sleep and at night she perceive of hearing someone in the room although it is unclear whether she may have overhead the sounds of the nurses. Patient became more drowsy in afternoon and medical doctor was called to assess her responsiveness and it appears that patient was sleeping. Patient was able to respond and answer questions and give good hand physical education specialist strength with both hands. Physical Exam General: as above Lungs: on nasal cannula, fair air entry Heart: Regular rate Abdomen: soft, nontender, + bowel sounds Extremities: wound vac over right thigh : krueger ASSESSMENT & PLAN: patient has been on multiple days with ertapenem and daptomycin primarily for hip/thigh infection (H/o R hip replacement in February 2017) As per infectious disease consult, patient requires six weeks from date of OR () patient has been on daptomycin and ertapenem - for discharge with outpatient antibiotics the plan is ertapenem and vancomycin hospital pharmacy notified that daptomycin to be stopped on 12/06/17 and vancomycin to be started upon discharge the patient will need weekly cbc,cmp, esr, vanco trough - maintain 15-20. Continue wound care / wound vac Respiratory: -As per pulmonary service after review of CTA scan on 12/05/17 there is not enough fluid for thoracentesis in regards to bibasilar effusions vs atelectasis -Follow up CXR on 12/07/17: Moderate interval increase in cardiac size. Slight increase in volume of a left basilar pleural effusion. Small right basilar pleural effusion. Superimposed components of congestive failure. 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 but patient has declined further workup Pain management; primarily from vulvar area and as per palliative care service, patient feels better when sitting on a doughnut cushion Generalized seizure disorder history: neurology service on 12/04/17 recommended to hold tramadol to prevent lowering of seizure threshold Anemia likely of chronic disease vs post operative S/P 3 units PRBC on this admission Fe and Folate supplemented FOBT (+) GI consulted: No plans for EGD continue ASA, Protonix 40mg BID MARIELA on CKD III, MARIELA resolved HTN: on metoprolol, amlodipine, Clonidine DM II: hbA1c of 7.0 in February 2017 holding home meds Continue ISS, lantus Depression history: on celexa Hallucinations at night may be delirium vs dreams vs misinterpretation of sounds in hospital setting H/o CVA: Stable, continue ASA DVT Px: Heparin SQ Code status: DNR Palliative care service following patient Disposition: As per patient's son Tyree [phone] goals of care is from hospitalization to physical rehabilitation Case management notes: [facility] can accept patient once the facility has wound vac at facility Vital Signs: Date Time Temp Pulse Resp B/P (MAP) Pulse Ox O2 Delivery O2 Flow Rate FiO2 12/09/17 12:58 36.5 65 16 131/69 (89) 97 Room Air 12/09/17 11:14 67 16 95 Nasal Cannula 3.0 12/09/17 08:00 Nasal Cannula 3.0 12/09/17 07:13 68 16 95 Nasal Cannula 3.0 12/09/17 06:49 36.9 70 16 151/70 (97) 95 Nasal Cannula 2.0 12/09/17 00:20 Nasal Cannula 3.0 12/08/17 23:05 36.5 72 18 128/67 (87) 97 Nasal Cannula 3.0 12/08/17 17:05 97 Nasal Cannula 4.0 12/08/17 15:37 36.4 79 16 126/76 (93) 90 Nasal Cannula 4.0 12/08/17 15:15 Nasal Cannula 3.0 12/08/17 14:55 77 16 95 Nasal Cannula 2.0 Lab Results: Results Past 24 Hours Test 12/08/17 17:05 12/08/17 20:45 12/09/17 05:10 12/09/17 08:35 Range/Units Bedside Glucose 166 164 116 70-90 mg/dl Creatinine 0.75 0.60-1.20 mg/dl Est Creatinine Clear Calc Drug Dose 46.6 ml/min Estimated GFR () 82.5 Estimated GFR (Non- 71.2 Test 12/09/17 09:25 12/09/17 12:43 Range/Units Vancomycin Level Trough 18.6 SEE COMMENT mcg/ml Bedside Glucose 135 70-90 mg/dl
[2017-12-09] MEDS: ERTAPENEM IV 1,000 MG in SODIUM CHLORIDE 0.9% 50ML 50 ML IV SCH (18:17)
[2017-12-09] MEDS: SIMVASTATIN 20 MG TAB PO SCH (21:26)
[2017-12-10] VITALS (9 sets, daily range): BP systolic 121–122; BP diastolic 60–68; PULSE 64–77; TEMP 36.7–37.4; O2SAT 87–96
[2017-12-10 05:54] LABS: BASO % 0.2 %; BASO ABS # 0.03 K/uL (0-0.2); EOS % 3.6 %; EOS ABS # 0.65 K/uL (0-0.5); HEMOGLOBIN 8.6 g/dL (12.0-16.0); LYMPH % 8.8 %; LYMPH ABS # 1.57 K/uL (1.2-3.4); MEAN CELL VOLUME 89.7 fL (80-100); MEAN CORPUSCULAR HEMOGLOBIN 29.7 pg (25-34); MEAN CORPUSCULAR HGB CONC 33.1 g/dl (32-36); MEAN PLATELET VOLUME 8.4 fL (7.4-10.4); MONO ABS # 0.89 K/uL (0.11-0.59); NEUT % 81.8 %; NEUT ABS # 14.61 K/uL (1.4-6.5); PLATELET COUNT 315 K/uL (130-400); RED CELL DISTRIBUTION WIDTH CV 16.2 % (11.5-14.5); RED CELL DISTRIBUTION WIDTH SD 52.5 fL (36.4-46.3); WHITE BLOOD COUNT 17.85 K/uL (4.8-10.8)
[2017-12-10 06:27] LABS: ALBUMIN 1.7 gm/dl (3.4-5.0); CALCIUM 8.7 mg/dl (8.5-10.1); CREATININE 0.88 mg/dl (0.60-1.20); POTASSIUM 3.9 mmol/L (3.5-5.1)
[2017-12-10] MEDS: ALBUT/IPRATROP 3MG/0.5MG NEB 3 ML VIAL INH SCH ×3 (07:31→14:28)
[2017-12-10] MEDS: CALCIUM 600MG + VIT D 400 IU TAB PO SCH ×2 (09:06→12:55)
[2017-12-10] MEDS: FERROUS SULFATE 325 MG TAB PO SCH ×3 (09:08→18:16)
[2017-12-10] MEDS: CLONIDINE HCL 0.1 MG TAB PO SCH (09:08)
[2017-12-10] MEDS: ASPIRIN 81 MG ECTAB PO SCH (09:09)
[2017-12-10] MEDS: METOPROLOL TARTRATE 25 MG TAB PO SCH (09:10)
[2017-12-10] MEDS: PANTOprazole SOD 40 MG TAB PO SCH (09:10)
[2017-12-10] MEDS: AMLODIPINE BESYLATE 5 MG TAB PO SCH (09:12)
[2017-12-10] MEDS: CYANOCOBALAMIN 100 MCG TAB (VIT B-12) PO SCH (09:12)
[2017-12-10] MEDS: MULTIVITAMIN TAB PO SCH (09:12)
[2017-12-10] MEDS: LEVETIRACETAM ORAL SOLN 100MG/ML PO SCH (09:14)
[2017-12-10] MEDS: DOCUSATE SODIUM/SENNA 50/8.6MG TAB PO SCH (09:15)
[2017-12-10] MEDS: FUROSEMIDE 20 MG TAB PO SCH (09:16)
[2017-12-10] MEDS: CHOLECALCIFEROL 1000 INTER.UNIT TAB PO SCH (09:16)
[2017-12-10] MEDS: BOOST GLUCOSE CONTROL PO SCH (10:01)
[2017-12-10] MEDS: INSULIN ASPART 100 UNITS/ML 3 ML PEN SC SCH ×3 (10:09→18:19)
[2017-12-10] MEDS: INSULIN GLARGINE SOLOSTAR 100 UNITS/ML 3 ML PEN SC SCH (10:11)
[2017-12-10] MEDS: VANCOMYCIN IV 1,250 MG in SODIUM CHLORIDE 0.9% 250ML 250 ML IV SCH (10:48)
[2017-12-10] MEDS: HEPARIN SOD 5000 UNIT/0.5 ML CARP SQ SCH (12:37)
[2017-12-10] MEDS: CITALOPRAM 20 MG TAB PO SCH (12:56)
[2017-12-10] MEDS ORDERED: CALCTAB7 PO (15:42)
[2017-12-10] MEDS ORDERED: KPPS PO (15:42)
[2017-12-10] MEDS ORDERED: PRT40 PO (15:42)
[2017-12-10] MEDS ORDERED: INSDGIPEN SC (15:42)
[2017-12-10] MEDS ORDERED: MULT-890 PO (15:42)
[2017-12-10] MEDS ORDERED: FLV1 PO (15:42)
[2017-12-10] MEDS ORDERED: MRLP17X PO (15:42)
[2017-12-10] MEDS ORDERED: CTP1 PO (15:42)
--- NOTE | 2017-12-10 16:03 | Progress Note ---
Internal Med Progress Note Date of Service: Dec 10, 2017. Provider Documentation: Subjective: Patient seen today at her normal baseline within this past week. No acute complaints Physical Exam General: no distress Lungs: on nasal cannula, fair air entry Heart: Regular rate Abdomen: soft, nontender, + bowel sounds Extremities: wound vac over right thigh : krueger ASSESSMENT & PLAN: patient has been on multiple days with ertapenem and daptomycin primarily for hip/thigh infection (H/o R hip replacement in February 2017) (+) Peptostreptococcus, Acinetobacter, Prevotella As per infectious disease consult, patient requires six weeks from date of OR () patient has been on daptomycin and ertapenem - for discharge with outpatient antibiotics the plan is ertapenem and vancomycin hospital pharmacy notified that daptomycin to be stopped on 12/06/17 and vancomycin to be started upon discharge the patient will need weekly cbc,cmp, esr, vanco trough - maintain 15-20. Continue wound care / wound vac Anemia likely of chronic disease vs post operative S/P 3 units PRBC on this admission Fe and Folate supplemented FOBT (+) GI consulted: No plans for EGD continue ASA, Protonix 40mg BID Respiratory: -As per pulmonary service after review of CTA scan on 12/05/17 there is not enough fluid for thoracentesis in regards to bibasilar effusions vs atelectasis -Follow up CXR on 12/07/17: Moderate interval increase in cardiac size. Slight increase in volume of a left basilar pleural effusion. Small right basilar pleural effusion. Superimposed components of congestive failure. -Lasix 40 mg IV ordered on 12/07/17 -regular daily Lasix started on 12/08/17. 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 but patient has declined further workup Pain management; primarily from vulvar area and as per palliative care service, patient feels better when sitting on a doughnut cushion Generalized seizure disorder history: neurology service on 12/04/17 recommended to hold tramadol to prevent lowering of seizure threshold Continue Keppra as outpatient MARIELA on CKD III, MARIELA resolved HTN: on metoprolol, amlodipine, Clonidine DM II: hbA1c of 7.0 in February 2017 Insulin Depression history: on celexa Delirium at nights noted H/o CVA: Stable, continue ASA Disposition: Discharge to rehabilitation facility with wound vac and PICC for IV antibiotics ertapenem and vancomycin Vital Signs: Date Time Temp Pulse Resp B/P (MAP) Pulse Ox O2 Delivery O2 Flow Rate FiO2 12/10/17 15:05 36.7 71 19 121/64 (83) 96 Nasal Cannula 2.0 12/10/17 15:01 37.1 66 16 95 Nasal Cannula 12/10/17 14:28 66 16 95 Nasal Cannula 2.0 12/10/17 12:00 37.1 74 18 122/60 (80) 92 Nasal Cannula 3.0 12/10/17 11:11 70 16 94 Nasal Cannula 2.0 12/10/17 10:43 92 Nasal Cannula 3.0 12/10/17 08:35 87 Nasal Cannula 3.0 12/10/17 07:54 37.4 77 18 122/68 (86) 87 Room Air 12/10/17 07:31 64 16 96 Nasal Cannula 2.0 12/10/17 07:30 Nasal Cannula 3.0 12/09/17 23:30 Nasal Cannula 3.0 12/09/17 22:55 36.9 64 16 125/60 (81) 95 Nasal Cannula 2.0 12/09/17 19:12 66 16 96 Nasal Cannula 2.0 Lab Results: Results Past 24 Hours Test 12/09/17 17:00 12/09/17 20:36 12/10/17 05:38 12/10/17 07:56 Range/Units Bedside Glucose 99 168 79 70-90 mg/dl White Blood Count 17.85 4.8-10.8 K/uL Red Blood Count 2.90 4.2-5.4 M/uL Hemoglobin 8.6 12.0-16.0 g/dL Hematocrit 26.0 37-47 % Mean Corpuscular Volume 89.7 80-100 fL Mean Corpuscular Hemoglobin 29.7 25-34 pg Mean Corpuscular Hemoglobin Concent 33.1 32-36 g/dl Platelet Count 315 130-400 K/uL Mean Platelet Volume 8.4 7.4-10.4 fL Neutrophils (%) (Auto) 81.8 % Lymphocytes (%) (Auto) 8.8 % Monocytes (%) (Auto) 5.0 % Eosinophils (%) (Auto) 3.6 % Basophils (%) (Auto) 0.2 % Neutrophils # (Auto) 14.61 1.4-6.5 K/uL Lymphocytes # (Auto) 1.57 1.2-3.4 K/uL Monocytes # (Auto) 0.89 0.11-0.59 K/uL Eosinophils # (Auto) 0.65 0-0.5 K/uL Basophils # (Auto) 0.03 0-0.2 K/uL RDW Standard Deviation 52.5 36.4-46.3 fL RDW Coefficient of Variation 16.2 11.5-14.5 % Immature Granulocyte % (Auto) 0.6 % Immature Granulocyte # (Auto) 0.10 0.00-0.02 K/uL Red Blood Cell Morphology Unremarkable Sodium Level 133 136-145 mmol/L Potassium Level 3.9 3.5-5.1 mmol/L Chloride Level 95 98-107 mmol/L Carbon Dioxide Level 32 21-32 mmol/L Anion Gap 6.0 3-11 mmol/L Blood Urea Nitrogen 12 7-18 mg/dl Creatinine 0.88 0.60-1.20 mg/dl Est Creatinine Clear Calc Drug Dose 39.1 ml/min Estimated GFR () 68.0 Estimated GFR (Non- 58.7 BUN/Creatinine Ratio 14.1 10-20 Random Glucose 55 70-99 mg/dl Calcium Level 8.7 8.5-10.1 mg/dl Total Bilirubin 0.3 0.2-1 mg/dl Aspartate Amino Transf (AST/SGOT) 17 15-37 U/L Alanine Aminotransferase (ALT/SGPT) 15 12-78 U/L Alkaline Phosphatase 93 45-117 U/L Total Protein 6.0 6.4-8.2 gm/dl Albumin 1.7 3.4-5.0 gm/dl Globulin 4.3 2.5-4.0 gm/dl Albumin/Globulin Ratio 0.4 0.9-2 Test 12/10/17 12:15 Range/Units Bedside Glucose 158 70-90 mg/dl
--- NOTE | 2017-12-10 16:05 | Discharge Instructions ---
Discharge Instructions Date of Service Dec 10, 2017. Admission Reason for Admission: Abscess Of R Hip Discharge Discharge Diagnosis / Problem: right hip/thigh infection, anemia, vaginal lesion/pain, DM Discharge Goals Goal(s): Improve disease control Activity Recommendations Activity Limitations: per Instructions/Follow-up section Shower/Bathe: no limitations . Instructions / Follow-Up Instructions / Follow-Up patient has been on multiple days with ertapenem and daptomycin primarily for hip/thigh infection (H/o R hip replacement in February 2017) (+) Peptostreptococcus, Acinetobacter, Prevotella As per infectious disease consult, patient requires six weeks from date of OR () patient has been on daptomycin and ertapenem - for discharge with outpatient antibiotics the plan is ertapenem and vancomycin hospital pharmacy notified that daptomycin to be stopped on 12/06/17 and vancomycin to be started upon discharge the patient will need weekly cbc,cmp, esr, vanco trough - maintain 15-20. Continue wound care / wound vac Anemia likely of chronic disease vs post operative S/P 3 units PRBC on this admission Fe and Folate supplemented FOBT (+) GI consulted: No plans for EGD continue ASA, Protonix 40mg BID Respiratory: -As per pulmonary service after review of CTA scan on 12/05/17 there is not enough fluid for thoracentesis in regards to bibasilar effusions vs atelectasis -Follow up CXR on 12/07/17: Moderate interval increase in cardiac size. Slight increase in volume of a left basilar pleural effusion. Small right basilar pleural effusion. Superimposed components of congestive failure. -Lasix 40 mg IV ordered on 12/07/17 -regular daily Lasix started on 12/08/17. 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 but patient has declined further workup Pain management; primarily from vulvar area and as per palliative care service, patient feels better when sitting on a doughnut cushion Generalized seizure disorder history: neurology service on 12/04/17 recommended to hold tramadol to prevent lowering of seizure threshold Continue Keppra as outpatient MARIELA on CKD III, MARIELA resolved HTN: on metoprolol, amlodipine, Clonidine DM II: hbA1c of 7.0 in February 2017 Insulin Depression history: on celexa Delirium at nights noted H/o CVA: Stable, continue ASA Disposition: Discharge to rehabilitation facility with wound vac and PICC for IV antibiotics ertapenem and vancomycin Current Hospital Diet Patient's current hospital diet: Diabetes Type 2 Diet Discharge Diet Recommended Diet: Diabetes Type 2 Diet Procedures Procedures Performed: Incision and debridement right hip with poly and femoral head exchange, excision greater trochanteric fracture, placement of antibiotic Stimulan beads, debridement of 8.5 X 5cm decubitus ulcer right lateral hip, debridement of skin, fascia, subcutaneous tissue and fascia. Application of wound vac right hip. Pending Studies Studies pending at discharge: no Laboratory Results 12/10/17 05:38 Red Blood Count 2.90, Mean Corpuscular Volume 89.7, Mean Corpuscular Hemoglobin 29.7, Mean Corpuscular Hemoglobin Concent 33.1, Mean Platelet Volume 8.4, Neutrophils (%) (Auto) 81.8, Lymphocytes (%) (Auto) 8.8, Monocytes (%) (Auto) 5.0, Eosinophils (%) (Auto) 3.6, Basophils (%) (Auto) 0.2, Neutrophils # (Auto) 14.61, Lymphocytes # (Auto) 1.57, Monocytes # (Auto) 0.89, Eosinophils # (Auto) 0.65, Basophils # (Auto) 0.03 12/10/17 05:38 Test 11/16/17 09:00 11/17/17 06:25 11/20/17 17:09 11/21/17 05:58 Prothrombin Time 10.2 SECONDS (9.0-12.0) Prothromb Time International Ratio 1.0 (0.9-1.1) Activated Partial Thromboplast Time 26.1 SECONDS (21.0-31.0) Partial Thromboplastin Ratio 1.0 Creatine Kinase MB 0.7 ng/ml (0.5-3.6) Creatine Kinase MB Ratio 1.4 (0-3.0) Estimated Average Glucose 171 mg/dl Hemoglobin A1c 7.6 % (4.5-5.6) Vitamin B12 Level 1095 pg/mL (211-911) Iron Level 24 mcg/dl (35-150) Total Iron Binding Capacity 131 mcg/dl (250-450) Transferrin 101 mg/dl (200-360) Transferrin % Saturation 17 % (15-50) Ferritin 293.5 ng/ml (8.0-388.0) Folate 4.48 ng/mL (>5.38) Test 11/21/17 16:28 12/04/17 05:25 12/04/17 14:33 12/09/17 09:25 Stool Occult Blood POSITIVE (NEGATIVE) Magnesium Level 2.1 mg/dl (1.8-2.4) Total Creatine Kinase 40 U/L (26-192) Pro-B-Type Natriuretic Peptide 2345 pg/ml (0-1800) Levetiracetam (Keppra) Level 54.0 mcg/mL Vancomycin Level Trough 18.6 mcg/ml (SEE COMMENT) Test 12/09/17 14:30 12/10/17 05:38 12/10/17 12:15 Urine Color YELLOW Urine Appearance CLEAR (CLEAR) Urine pH 7.5 (4.5-7.5) Urine Specific Florien 1.012 (1.000-1.030) Urine Protein NEG (NEG) Urine Glucose (UA) NEG (NEG) Urine Ketones NEG (NEG) Urine Occult Blood NEG (NEG) Urine Nitrite NEG (NEG) Urine Bilirubin NEG (NEG) Urine Urobilinogen NEG (NEG) Urine Leukocyte Esterase TRACE (NEG) Urine WBC (Auto) 5-10 /hpf (0-5) Urine RBC (Auto) 5-10 /hpf (0-4) Urine Hyaline Casts (Auto) 1-5 /lpf (0-5) Urine Epithelial Cells (Auto) 10-20 /lpf (0-5) Urine Bacteria (Auto) NEG (NEG) White Blood Count 17.85 K/uL (4.8-10.8) Red Blood Count 2.90 M/uL (4.2-5.4) Hemoglobin 8.6 g/dL (12.0-16.0) Hematocrit 26.0 % (37-47) Mean Corpuscular Volume 89.7 fL (80-100) Mean Corpuscular Hemoglobin 29.7 pg (25-34) Mean Corpuscular Hemoglobin Concent 33.1 g/dl (32-36) Platelet Count 315 K/uL (130-400) Mean Platelet Volume 8.4 fL (7.4-10.4) Neutrophils (%) (Auto) 81.8 % Lymphocytes (%) (Auto) 8.8 % Monocytes (%) (Auto) 5.0 % Eosinophils (%) (Auto) 3.6 % Basophils (%) (Auto) 0.2 % Neutrophils # (Auto) 14.61 K/uL (1.4-6.5) Lymphocytes # (Auto) 1.57 K/uL (1.2-3.4) Monocytes # (Auto) 0.89 K/uL (0.11-0.59) Eosinophils # (Auto) 0.65 K/uL (0-0.5) Basophils # (Auto) 0.03 K/uL (0-0.2) RDW Standard Deviation 52.5 fL (36.4-46.3) RDW Coefficient of Variation 16.2 % (11.5-14.5) Immature Granulocyte % (Auto) 0.6 % Immature Granulocyte # (Auto) 0.10 K/uL (0.00-0.02) Red Blood Cell Morphology Unremarkable Anion Gap 6.0 mmol/L (3-11) Est Creatinine Clear Calc Drug Dose 39.1 ml/min Estimated GFR () 68.0 Estimated GFR (Non- 58.7 BUN/Creatinine Ratio 14.1 (10-20) Calcium Level 8.7 mg/dl (8.5-10.1) Total Bilirubin 0.3 mg/dl (0.2-1) Aspartate Amino Transf (AST/SGOT) 17 U/L (15-37) Alanine Aminotransferase (ALT/SGPT) 15 U/L (12-78) Alkaline Phosphatase 93 U/L (45-117) Total Protein 6.0 gm/dl (6.4-8.2) Albumin 1.7 gm/dl (3.4-5.0) Globulin 4.3 gm/dl (2.5-4.0) Albumin/Globulin Ratio 0.4 (0.9-2) Bedside Glucose 158 mg/dl (70-90) Date/Time Source Procedure Growth Status 12/06/17 07:51 Blood Blood Culture - Preliminary NO GROWTH TO DATE. Resulted 11/18/17 11:10 Joint Fluid/Space (Synovial) Hip , Right Gram Stain - Final Complete 11/18/17 11:10 Bacterial Culture - Final Peptostreptococcus Species Complete 11/18/17 11:00 Drainage-Deep Hip , Right Gram Stain - Final Complete 11/18/17 11:00 Bacterial Culture - Final Peptostreptococcus Species Prevotella Species Eggerthella Lenta {Eubacterium Complete Hemoglobin A1c Test 11/17/17 06:25 Range/Units Estimated Average Glucose 171 mg/dl Hemoglobin A1c 7.6 H 4.5-5.6 % Medical Emergencies . Who to Call and When: Medical Emergencies: If at any time you feel your situation is an emergency, please call 911 immediately. . Non-Emergent Contact Non-Emergency issues call your: Primary Care Provider Call Non-Emergent contact if: you have any medication questions . . "Provider Documentation" section prepared by Edgard Zarco. . VTE Core Measure Inpt VTE Proph given/why not?: Unfractionated heparin SQ, SCD's
--- NOTE | 2017-12-10 16:10 | Discharge Summary ---
Discharge Summary Date of Service Dec 10, 2017. Discharge Summary Admission Date: Nov 16, 2017 at 11:30 Discharge Date: Dec 10, 2017 Discharge Disposition: Rehab Principal Diagnosis: right hip/thigh infection, anemia, vaginal lesion/pain, DM Secondary Diagnoses/Problems: pleural effusions, hypertension Medication Reconciliation New Medications: Calcium Carbonate-Vitamin D W/ (Caltrate 600 Plus) 1 Tab Tab 1 TAB PO BID@0900,1330 for 30 Days, #60 TAB Clonidine HCl (Clonidine HCl) 0.1 Mg Tab 0.1 MG PO BID for 30 Days, #60 TAB Folic Acid (Folic Acid) 1 Mg Tab 1 MG PO QAM for 30 Days, #30 TAB Insulin Glargine (Lantus Solostar) 100 Unit/Ml Inj 6 UNITS SC Q12 for 30 Days, #4 ML Levetiractam (Levetiracetam) 100 Mg/1 Ml Soln 1000 MG PO BID for 30 Days, #600 ML Multiple Vitamin (Daily-Shmuel) 1 Tab Tab 1 TAB PO QAM for 30 Days, #30 TAB Pantoprazole (Pantoprazole Sodium) 40 Mg Tab 40 MG PO BID for 30 Days, #60 TAB Polyethylene (Miralax) 17 Gm Pow 17 GM PO DAILY PRN for Constipation for 30 Days, #510 GM Continued Medications: Amlodipine Besylate (Amlodipine Besylate) 10 Mg Tab 10 MG PO DAILY for 30 Days, #30 TABS Aspirin (Aspirin Ec) 81 Mg Tab 81 MG PO BIDM Cholecalciferol (Vitamin D-3) 1,000 Unit Tab 1000 UNITS PO DAILY Citalopram Hydrobromide (Citalopram Hydrobromide) 20 Mg Tab 20 MG PO HS Cyanocobalamin (Vitamin B-12) 100 Mcg Tab 100 MCG PO DAILY, #100 TAB Denosumab (Prolia) 60 Mg/Ml Justyna 60 MG SQ [id number] Docusate Sodium (Docusate Sodium) 100 Mg Cap 100 MG PO BID PRN for Constipation Ferrous Sulfate (Kp Ferrous Sulfate) 325 Mg Tab 325 MG PO TIDM Furosemide (Lasix) 20 Mg Tab 20 MG PO [id number],FRI Metoprolol Tartrate (Lopressor) (Lopressor) 25 Mg Tab 25 MG PO BID Simvastatin (Zocor) 20 Mg Tab 20 MG PO QPM, TAB Zolpidem Tartrate (Ambien) 5 Mg Tab 5 MG PO HS PRN for Sleep, TAB Discontinued Medications: Calcium Carbonate-Vitamin D (Calcium) 1 Tab Tab 1 TAB PO BID Insulin Aspart 70/30 (Novolog Mix 70/30) Susp 14 UNITS SC QAM, BTL Inject 14 units subcutaneously before breakfast. Insulin Aspart 70/30 (Novolog Mix 70/30) Susp 8 UNITS SC QPM, BTL Inject 8 units subcutaneously before supper. Levetiractam (Levetiracetam) 500 Mg Tab 750 MG PO BID, #60 TAB Multivitamin (Multivitamin) Tab 1 TAB PO DAILY Polyethylene Glycol 3350 (Miralax) 1 Pow Pow 17 GM PO BID PRN for Constipation Admission Information HPI (per Admitting provider): This is an 87yo F with a PMH of R hip fracture s/p hip replacement in February 2017, DM II, HTN, CKD III, HLD, vulvar cancer, h/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 Patient fell and fractured her R hip in February 2017 and had a hip replacement by Dr. Luu. A few months later, patient noticed some swelling on the lateral aspect of her hip and went to see surgeon who explained that there fluid present that could not be drained. Last month, patient noticed that this same area had opened up with clear drainage and a scab formed. Went to PCP and was given a course of bactrim and referred to [place] [facility]. Home health care nurses stop by for dressing changes. Wound has been draining purulent, serosanguineous fluid continuously over the past two days. Patient states that the area is tender to touch but she is still able to ambulate by walker. Lives alone. Was recently diagnosed with vulvar malignant neoplasm by Bailey mitchell but no further action has been taken based on patient's age and wishes. Denies any fever, chills, lightheadedness, headache, CP, nausea, vomiting, abdominal pain, LE swelling. Endorses SOB with exertion (chronic). Did not eat or take any medication this morning. Physical Exam (per Admitting): General Appearance: WD/WN, no apparent distress, + pertinent finding ( Resting comfortably in bed.) Head: normocephalic, atraumatic Eyes: normal inspection, PERRL, sclerae normal ENT: normal ENT inspection (hard of hearing), pharynx normal Neck: thyroid normal Respiratory/Chest: chest non-tender, lungs clear, normal breath sounds, no respiratory distress, no accessory muscle use Cardiovascular: regular rate, rhythm, no murmur, normal peripheral pulses Abdomen/GI: non tender, soft, no organomegaly Back: normal inspection Extremities/Musculoskelatal: + pertinent finding (R hip TTP, presence of deep wound draining foul smelling, serosanguinous fluid. ROM intact but painful .) Neurologic/Psych: no motor/sensory deficits, alert, normal mood/affect, oriented x 3 Skin: normal color, warm/dry, + pertinent finding (Presence of quarter-size wound on left plantar aspect of foot near 1 metatarsal. Bandaged. ) Hospital Course patient has been on multiple days with ertapenem and daptomycin primarily for hip/thigh infection (H/o R hip replacement in February 2017) (+) Peptostreptococcus, Acinetobacter, Prevotella As per infectious disease consult, patient requires six weeks from date of OR () patient has been on daptomycin and ertapenem - for discharge with outpatient antibiotics the plan is ertapenem and vancomycin hospital pharmacy notified that daptomycin to be stopped on 12/06/17 and vancomycin to be started upon discharge the patient will need weekly cbc,cmp, esr, vanco trough - maintain 15-20. Continue wound care / wound vac Anemia likely of chronic disease vs post operative S/P 3 units PRBC on this admission Fe and Folate supplemented FOBT (+) GI consulted: No plans for EGD continue ASA, Protonix 40mg BID Respiratory: -As per pulmonary service after review of CTA scan on 12/05/17 there is not enough fluid for thoracentesis in regards to bibasilar effusions vs atelectasis -Follow up CXR on 12/07/17: Moderate interval increase in cardiac size. Slight increase in volume of a left basilar pleural effusion. Small right basilar pleural effusion. Superimposed components of congestive failure. -Lasix 40 mg IV ordered on 12/07/17 -regular daily Lasix started on 12/08/17. 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 but patient has declined further workup Pain management; primarily from vulvar area and as per palliative care service, patient feels better when sitting on a doughnut cushion Generalized seizure disorder history: neurology service on 12/04/17 recommended to hold tramadol to prevent lowering of seizure threshold Continue Keppra as outpatient MARIELA on CKD III, MARIELA resolved HTN: on metoprolol, amlodipine, Clonidine DM II: hbA1c of 7.0 in February 2017 Insulin Depression history: on celexa Delirium at nights noted H/o CVA: Stable, continue ASA Disposition: Discharge to rehabilitation facility with wound vac and PICC for IV antibiotics ertapenem and vancomycin Total time spent on discharge = 60 minutes This includes examination of the patient, discharge planning, medication reconciliation, and communication with other providers. Discharge Instructions see above
[2017-12-10] MEDS: ERTAPENEM IV 1,000 MG in SODIUM CHLORIDE 0.9% 50ML 50 ML IV SCH (18:28)
[2018-01-07] MEDS ORDERED: MRLP17 PO (14:02)
[2018-01-07] MEDS ORDERED: SOAP SUDS ENEMA PR (14:02)
[2018-01-07] MEDS ORDERED: NUTR-7 PO (14:02)
[2018-01-07] MEDS ORDERED: HPRIS5M SQ (14:02)
[2018-01-07] MEDS ORDERED: CFP2IV IV (14:05)
[2018-01-07] MEDS ORDERED: NF1094 IV (14:05)
== END 2017-12-10 19:31 | DRG 466 ==
LOC: EDBD 08:28 → C.EDB 08:29 → C.MSW 11:30 → ENRESERV 12:05 → C.MSN 12-09 01:59
PROVIDERS: ADMIT Family Medicine; ATTEND Hospitalist
PROC: 0SRR01A Replacement of Right Hip Joint, Femoral Surface with Metal Synthetic Substitute, Uncemented, Open Approach (ICD-10-PCS; principal; 2017-11-18 07:30)
PROC: 0SPR0JZ Removal of Synthetic Substitute from Right Hip Joint, Femoral Surface, Open Approach (ICD-10-PCS; principal; 2017-11-18 07:30)
PROC: 0JD90ZZ Extraction of Buttock Subcutaneous Tissue and Fascia, Open Approach (ICD-10-PCS; principal; 2017-11-18 07:30)
PROC: 0SUA09Z Supplement Right Hip Joint, Acetabular Surface with Liner, Open Approach (ICD-10-PCS; principal; 2017-11-18 07:30)
PROC: 0SP909Z Removal of Liner from Right Hip Joint, Open Approach (ICD-10-PCS; principal; 2017-11-18 07:30)
PROC: 02HV33Z Insertion of Infusion Device into Superior Vena Cava, Percutaneous Approach (ICD-10-PCS; 2017-11-20)
PROC: 0HBHXZZ Excision of Right Upper Leg Skin, External Approach (ICD-10-PCS; 2017-11-21)
DX: T84.51XA Infection and inflammatory reaction due to internal right hip prosthesis, initial encounter (principal); L89.314 Pressure ulcer of right buttock, stage 4; I50.33 Acute on chronic diastolic (congestive) heart failure; L02.415 Cutaneous abscess of right lower limb; N17.9 Acute kidney failure, unspecified; M96.842 Postprocedural seroma of a musculoskeletal structure following a musculoskeletal system procedure; I13.0 Hypertensive heart and chronic kidney disease with heart failure and stage 1 through stage 4 chronic kidney disease, or unspecified chronic kidney disease; I50.32 Chronic diastolic (congestive) heart failure; J98.11 Atelectasis; R44.3 Hallucinations, unspecified; C51.9 Malignant neoplasm of vulva, unspecified; E11.22 Type 2 diabetes mellitus with diabetic chronic kidney disease; N18.3 Chronic kidney disease, stage 3 (moderate); D63.8 Anemia in other chronic diseases classified elsewhere; R41.0 Disorientation, unspecified; E11.51 Type 2 diabetes mellitus with diabetic peripheral angiopathy without gangrene; E78.5 Hyperlipidemia, unspecified; G40.909 Epilepsy, unspecified, not intractable, without status epilepticus; R13.10 Dysphagia, unspecified; F32.9 Major depressive disorder, single episode, unspecified; Z66 Do not resuscitate; Z79.4 Long term (current) use of insulin; Z79.82 Long term (current) use of aspirin; Z79.899 Other long term (current) drug therapy; Z86.73 Personal history of transient ischemic attack (TIA), and cerebral infarction without residual deficits; Z96.641 Presence of right artificial hip joint; Z88.0 Allergy status to penicillin; Z88.1 Allergy status to other antibiotic agents; Z80.0 Family history of malignant neoplasm of digestive organs; Z80.1 Family history of malignant neoplasm of trachea, bronchus and lung; Y83.1 Surgical operation with implant of artificial internal device as the cause of abnormal reaction of the patient, or of later complication, without mention of misadventure at the time of the procedure; Y79.2 Prosthetic and other implants, materials and accessory orthopedic devices associated with adverse incidents; Z51.5 Encounter for palliative care

== ENCOUNTER 2017-12-13 14:00 | Emergency (ER) | payer OTHER, MEDICARE ==
[~2017-12-13] VITALS: Ht 152.4 cm; Wt 68.3 kg
[~2017-12-13 14:00] MED LIST changes: -ARTIOIN OP; -CALC-51 PO; +CALCTAB7 PO; -CHOL1000 PO; +CHOL1TAB2 PO; +CTP1 PO; +DOCU100C31 PO; +FERR1TAB13 PO; +FLV1 PO; +FURO-85 PO; +INSDGIPEN SC; +KPPS PO; -LEVE500T PO; -LPR25 PO; -LSN5 PO; +METO25TA56 PO; +MRLP17X PO; -MULT-506 PO; +MULT-890 PO; -NVLGI7030 SC; -POLY335019 PO; +PRT40 PO; -ULT50X PO
[2017-12-13] MEDS ORDERED: SODIUM CHLORIDE 0.9% 500ML 500 ML IV STA (14:19)
--- NOTE | 2017-12-13 14:30 | EMERGENCY ROOM VISIT NOTE ---
History Report prepared by Dori: Suresh Thompson Under the Supervision of: Dr. Osman Stratton M.D. First contact with patient: 14:08 Chief Complaint: FEVER Stated Complaint: PNEUMONIA/SEPSIS History of Present Illness The patient is an 87 year old female who presents to the Emergency Room with complaints of a constant shortness of breath beginning this morning. The nursing staff states the patient is from [facility]. They report the patient has a Wound-Vac in place and is currently being treated for pneumonia. The nurses note the patient has been receiving treatment through a PICC line in her upper arm for her pneumonia. They state the patient is not normally on oxygen, but she was placed on 2L this morning because her O2Sat was in the 80s. Her current O2Sat on oxygen is 93. The nurses report the patient developed a fever of 101 degrees today, received Tylenol, and it resolved. The patient notes she has been more fatigued lately. Chest x-ray today at [facility] was read as pneumonia. WBC was 17 two days ago, her WBC was 18 today, and she is on Invanz and Vancomycin. The patient is a DNR. Source of History: patient, [facility]dc notes (and patient records), nursing staff Onset: this morning Position: other (global) Quality: other (SOB) Timing: constant Modifying Factors (Relieving): oxygen Associated Symptoms: + fevers (101 degrees and resolved), + fatigue Review of Systems See HPI for pertinent positives and negatives. A total of ten systems were reviewed and were otherwise negative. 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 Surgical Problems: (1) History of total hip replacement (2) Hx of cataract surgery (3) S/P tonsillectomy and adenoidectomy (4) Status post appendectomy (5) Status post cholecystectomy Family History FH: lung cancer BROTHER FH: stroke FATHER Oral cancer MOTHER Social History Smoking Status: Never Smoker Alcohol Use: none Drug Use: none Marital Status: Housing Status: fdc ([place]) Occupation Status: retired Current/Historical Medications Scheduled Amlodipine (Norvasc), 10 MG PO DAILY Aspirin (Aspirin Ec), 81 MG PO BIDM Azithromycin (Zithromax), 250 MG PO DAILY Calcium Carbonate-Cholecalcife (Caltrate 600+D), 1 TAB PO BID Cholecalciferol (Vitamin D-3), 1,000 UNITS PO DAILY Citalopram Hydrobromide (Citalopram Hydrobromide), 20 MG PO HS Clonidine Hcl (Catapres), 0.1 MG PO BID Cyanocobalamin (Vitamin B-12), 100 MCG PO DAILY Ertapenem Sodium (Invanz), 1 GM IV DAILY Folic Acid (Folvite), 1 MG PO DAILY Furosemide (Lasix), 20 MG PO 3XWK Insulin Glargine (Lantus), 6 UNITS SC BID Levetiracetam (Keppra), 1,000 MG PO BID Metoprolol Tartrate (Lopressor) (Lopressor), 25 MG PO BID Multivitamin (Multivitamin), 1 TAB PO DAILY Pantoprazole (Protonix), 40 MG PO DAILY Sennosides-Docusate Sodium (Senna S), 2 TABS PO BID Simvastatin (Zocor), 20 MG PO QPM Vancomycin HCl in Sodium Chlor (VANCOMYCIN in NSS), 1.25 GM IV DAILY Scheduled PRN Ipratropium-Albuterol (Duoneb), 1 TREATMENT INH Q4H PRN for Wheezing Allergies Coded Allergies: Amoxicillin (Verified Allergy, Severe, CVA SYMPTOMS, 11/16/17) Penicillins (Unverified Allergy, Unknown, POSS CX OF CVA, 11/16/17) Risedronate (Unverified Allergy, Unknown, UNKNOWN, 11/16/17) Diphenhydramine (Unverified Adverse Reaction, Unknown, N&V, 11/16/17) Prednisone (Unverified Adverse Reaction, Unknown, HIGH BS, 11/16/17) Physical Exam Vital Signs Date Time Temp Pulse Resp B/P (MAP) Pulse Ox O2 Delivery O2 Flow Rate FiO2 12/13/17 19:15 64 14 141/61 99 12/13/17 18:30 63 14 148/58 99 Nasal Cannula 4.0 12/13/17 17:00 37.2 12/13/17 16:00 63 18 140/58 94 Nasal Cannula 2.0 12/13/17 15:13 62 12/13/17 14:43 94 Room Air 12/13/17 14:10 37.9 62 20 134/62 93 Nasal Cannula 2.0 Physical Exam GENERAL: Awake, alert, chronically-appearing, fatigue, mildly dyspneic, in no distress HENT: Normocephalic, atraumatic. Oropharynx with dry mucus membranes and otherwise unremarkable. EYES: Normal conjunctiva. Sclera non-icteric. NECK: Supple. No nuchal rigidity. FROM. No JVD. RESPIRATORY: Diminished breath sounds at bases, scant scattered rhonchi and wheezes. CARDIAC: Regular rate, normal rhythm. Extremities warm and well perfused. Pulses equal. ABDOMEN: Soft, obese. No tenderness to palpation. No rebound or guarding. No masses. RECTAL: Deferred. MUSCULOSKELETAL: Chest examination reveals no tenderness. The back is symmetrical on inspection without obvious abnormality. There is no CVA tenderness to palpation. No joint edema. LOWER EXTREMITIES: Calves are equal size bilaterally and non-tender. No edema. No discoloration. NEURO: Normal sensorium. No sensory or motor deficits noted. SKIN: No rash or jaundice noted. Right hip Wound-Vac site without erythema, discharge, or warmth. Medical Decision & Procedures ER Provider Diagnostic Interpretation: X-ray: Per my interpretation, radiologist review. CHEST ONE VIEW PORTABLE CLINICAL HISTORY: Evaluate Fever/Sepsis cough COMPARISON STUDY: 12/07/19992017 FINDINGS: Improved aeration lung bases. Mild residual pleural reactive change left base. Mild stable cardiomegaly. Mid and upper lungs are clear. Central catheter remains in superior vena cava. IMPRESSION: Improving aeration both lung bases with minimal residual. Mild stable cardiomegaly. The above report was generated using voice recognition software. It may contain grammatical, syntax or spelling errors. Electronically signed by: Gael Langley M.D. 12/13/2017 2:39 PM Dictated Date/Time: 12/13/2017 2:36 PM Laboratory Results 12/13/17 14:17 Red Blood Count 2.88, Mean Corpuscular Volume 90.6, Mean Corpuscular Hemoglobin 29.5, Mean Corpuscular Hemoglobin Concent 32.6, Mean Platelet Volume 8.3, Neutrophils (%) (Auto) 73.8, Lymphocytes (%) (Auto) 14.5, Monocytes (%) (Auto) 5.8, Eosinophils (%) (Auto) 4.8, Basophils (%) (Auto) 0.3, Neutrophils # (Auto) 13.50, Lymphocytes # (Auto) 2.66, Monocytes # (Auto) 1.07, Eosinophils # (Auto) 0.88, Basophils # (Auto) 0.05 12/13/17 14:17 Test 12/13/17 14:17 12/13/17 14:35 12/13/17 14:55 White Blood Count 18.30 K/uL (4.8-10.8) Red Blood Count 2.88 M/uL (4.2-5.4) Hemoglobin 8.5 g/dL (12.0-16.0) Hematocrit 26.1 % (37-47) Mean Corpuscular Volume 90.6 fL (80-100) Mean Corpuscular Hemoglobin 29.5 pg (25-34) Mean Corpuscular Hemoglobin Concent 32.6 g/dl (32-36) Platelet Count 333 K/uL (130-400) Mean Platelet Volume 8.3 fL (7.4-10.4) Neutrophils (%) (Auto) 73.8 % Lymphocytes (%) (Auto) 14.5 % Monocytes (%) (Auto) 5.8 % Eosinophils (%) (Auto) 4.8 % Basophils (%) (Auto) 0.3 % Neutrophils # (Auto) 13.50 K/uL (1.4-6.5) Lymphocytes # (Auto) 2.66 K/uL (1.2-3.4) Monocytes # (Auto) 1.07 K/uL (0.11-0.59) Eosinophils # (Auto) 0.88 K/uL (0-0.5) Basophils # (Auto) 0.05 K/uL (0-0.2) RDW Standard Deviation 54.7 fL (36.4-46.3) RDW Coefficient of Variation 16.8 % (11.5-14.5) Immature Granulocyte % (Auto) 0.8 % Immature Granulocyte # (Auto) 0.14 K/uL (0.00-0.02) Polychromasia 1+ Anisocytosis PRESENT Prothrombin Time 11.4 SECONDS (9.0-12.0) Prothromb Time International Ratio 1.1 (0.9-1.1) Activated Partial Thromboplast Time 27.3 SECONDS (21.0-31.0) Partial Thromboplastin Ratio 1.1 Venous Blood pH 7.44 (7.36-7.41) Venous Blood Partial Pressure CO2 50 mmHg (38.0-50.0) Venous Blood Partial Pressure O2 40 mmHg Venous Blood HCO3 33 mmol/L Venous Blood Oxygen Saturation 71.6 % Venous Blood Base Excess 8.1 mEq/L Anion Gap 5.0 mmol/L (3-11) Est Creatinine Clear Calc Drug Dose 39.0 ml/min Estimated GFR () 69.9 Estimated GFR (Non- 60.3 BUN/Creatinine Ratio 16.9 (10-20) Lactic Acid Level 1.0 mmol/L (0.4-2.0) Calcium Level 8.6 mg/dl (8.5-10.1) Total Bilirubin 0.3 mg/dl (0.2-1) Direct Bilirubin < 0.1 mg/dl (0-0.2) Aspartate Amino Transf (AST/SGOT) 13 U/L (15-37) Alanine Aminotransferase (ALT/SGPT) 11 U/L (12-78) Alkaline Phosphatase 83 U/L (45-117) Troponin I < 0.015 ng/ml (0-0.045) Pro-B-Type Natriuretic Peptide 3180 pg/ml (0-1800) Total Protein 5.8 gm/dl (6.4-8.2) Albumin 1.6 gm/dl (3.4-5.0) Lipase 69 U/L (73-393) Procalcitonin 0.12 ng/ml (0-0.5) Urine Color DK YELLOW Urine Appearance CLOUDY (CLEAR) Urine pH 5.5 (4.5-7.5) Urine Specific [place] 1.023 (1.000-1.030) Urine Protein 2+ (NEG) Urine Glucose (UA) NEG (NEG) Urine Ketones NEG (NEG) Urine Occult Blood NEG (NEG) Urine Nitrite NEG (NEG) Urine Bilirubin NEG (NEG) Urine Urobilinogen NEG (NEG) Urine Leukocyte Esterase SMALL (NEG) Urine WBC (Auto) 10-30 /hpf (0-5) Urine RBC (Auto) 5-10 /hpf (0-4) Urine Hyaline Casts (Auto) 5-10 /lpf (0-5) Urine Epithelial Cells (Auto) >30 /lpf (0-5) Urine Bacteria (Auto) NEG (NEG) Urine Renal Epithelial Cells /lpf (0-5) Urine Crystals CALCIUM OXALATE (NONE Urine Pathogenic Casts 0-3 GRANULAR CASTS /lpf (0) Influenza Type A (RT-PCR) Neg for Influ A (NEG) Influenza Type A Antigen Neg for Influ A (NEG) Influenza Type B Antigen Neg for Influ B (NEG) Influenza Type B (RT-PCR) Neg for Influ B (NEG) Laboratory results reviewed by me Medications Administered Medications (Trade) Dose Ordered Sig/Zaina Route Start Time Stop Time Status Last Admin Dose Admin Sodium Chloride 500 ml @ 999 mls/hr Q31M STAT IV 12/13/17 14:19 12/13/17 14:49 DC 12/13/17 15:06 999 MLS/HR Heparin Sodium (Porcine) (Heparin 10 Unit/ ml 5 ml Flush) 5 ml STK-MED ONCE .ROUTE 12/13/17 15:48 12/13/17 15:49 DC 12/13/17 16:27 5 ML Albuterol/ Ipratropium (Duoneb) 3 ml NOW STAT INH 12/13/17 16:13 12/13/17 16:14 DC 12/13/17 16:37 3 ML Furosemide (Lasix Inj) 20 mg NOW STAT IV 12/13/17 17:27 12/13/17 17:32 DC 12/13/17 18:09 20 MG Azithromycin (Zithromax Tab) 500 mg NOW STAT PO 12/13/17 17:57 12/13/17 18:00 DC 12/13/17 18:09 500 MG Ertapenem 1 gm/ Sodium Chloride 50 ml @ 100 mls/hr NOW STAT IV 12/13/17 18:09 12/13/17 18:38 DC 12/13/17 18:35 100 MLS/HR Heparin Sodium (Porcine) (Heparin 10 Unit/ ml 5 ml Flush) 5 ml STK-MED ONCE .ROUTE 12/13/17 19:11 12/13/17 19:12 DC 12/13/17 19:15 5 ML ECG Per My Interpretation Indication: SOB/dyspnea Rate (beats per minute): 63 Rhythm: sinus rhythm Findings: PAC, no acute ischemic change, other (Normal axis) ED Course 1416: The patient was evaluated in room A03. A complete history and physical exam was performed. 1702: I reevaluated the patient. Discussed results and discharge instructions: she verbalized understanding and agreement. The patient is ready for discharge. 1731: I discussed the patient's case with the case repairer. She will contact [facility]. 1749: Case management contacted [facility]i S[facility]. The patient is on oxygen at the facility. They requested the patient receive her dose of antibiotics before discharge, and the PA will evaluate the patient tomorrow. Medical Decision I reviewed the patient's past medical history, medications, and the nursing notes as described above. Differential diagnoses include: pneumonia, sepsis, bronchitis, UTI, bacteremia, ACS, CHF, PE, influenza. The patient is a 87-year-old woman with a complicated recent past medical history including admission for a right hip abscess status post wound VAC and currently with a PICC line receiving IV Invanz and vancomycin now presents emergency department from her alf facility, [facility], for fevers and increased shortness of breath with oxygen requirement per HPI. On arrival, the patient is chronically ill-appearing but in no acute distress with temp of 37.9, vital signs otherwise stable. WBC elevated to 18 however comparable to recent of 17 in the setting of being treated for her known right hip abscess. Chest x-ray here today shows overall improvement from prior. Prolactin within normal limits suggesting unlikely to have evolving pneumonia. Additionally lactate within normal limits. BNP 3000 marginally elevated from recent . Thus the patient was given a dose of Lasix. Given the patient's question of increased oxygen requirement symptoms likely related to a bronchitis thus will treat with azithromycin and DuoNeb's. Patient has a listed allergy to prednisone thus will defer steroids at this time. manager of administration discussed with [facility] staff and they are agreeable to accept the patient back and will have the facility's PA-C evaluate the patient tomorrow. Of note, per [facility] staff, patient is sometimes on oxygen so this is not entirely new. Medication Reconcilliation Current Medication List: was personally reviewed by me Blood Pressure Screening Patient's blood pressure: Elevated blood pressure Monitored by Regi Sellers. Impression Primary Impression: Bronchitis Scribe Attestation The scribe's documentation has been prepared under my direction and personally reviewed by me in its entirety. I confirm that the note above accurately reflects all work, treatment, procedures, and medical decision making performed by me. Departure Information Dispostion Other ([facility]) Prescriptions Ipratropium-Albuterol (DUONEB) 3 Ml Nebu 1 TREATMENT INH Q4H Y for Wheezing, #30 INHA Prov: Osman Stratton M.D. 12/13/17 Azithromycin (Zithromax) 250 Mg Tab 250 MG PO DAILY, #4 TAB Prov: Osman Stratton M.D. 12/13/17 Referrals Mloly Goldstein M.D. (PCP) Forms HOME CARE DOCUMENTATION FORM, IMPORTANT VISIT INFORMATION Patient Instructions ED Bronchitis Asthmatic, My [facility] Additional Instructions Please follow up with your primary providers tomorrow for re-evaluation. Your symptoms are most likely due to a bronchitis as well as some mild fluid overload. Thus you were given a dose of Lasix and we added azithromycin antibiotic and DuoNeb's as needed for shortness of breath or wheezing. Your prolactin and lactate were within normal limits suggesting it is unlikely you are having a severe worsening infection. Otherwise, your exam, EKG, chest xray, lab results did not show signs of an emergent condition at this time. Continue your current medications as prescribed. Return to the emergency department for worsening symptoms as described in the accompanying instructions.
[2017-12-13 14:36] LABS: BASO % 0.3 %; BASO ABS # 0.05 K/uL (0-0.2); EOS % 4.8 %; EOS ABS # 0.88 K/uL (0-0.5); HEMATOCRIT 26.1 % (37-47); HEMOGLOBIN 8.5 g/dL (12.0-16.0); IG# 0.14 K/uL (0.00-0.02); LYMPH % 14.5 %; LYMPH ABS # 2.66 K/uL (1.2-3.4); MEAN CELL VOLUME 90.6 fL (80-100); MEAN CORPUSCULAR HEMOGLOBIN 29.5 pg (25-34); MEAN CORPUSCULAR HGB CONC 32.6 g/dl (32-36); MEAN PLATELET VOLUME 8.3 fL (7.4-10.4); MONO % 5.8 %; MONO ABS # 1.07 K/uL (0.11-0.59); NEUT % 73.8 %; PLATELET COUNT 333 K/uL (130-400); RED CELL DISTRIBUTION WIDTH CV 16.8 % (11.5-14.5); RED CELL DISTRIBUTION WIDTH SD 54.7 fL (36.4-46.3)
--- NOTE | 2017-12-13 14:40 | DIAGNOSTIC IMAGING REPORT ---
CHEST ONE VIEW PORTABLE CLINICAL HISTORY: Evaluate Fever/Sepsis cough COMPARISON STUDY: 12/07/19992017 FINDINGS: Improved aeration lung bases. Mild residual pleural reactive change left base. Mild stable cardiomegaly. Mid and upper lungs are clear. Central catheter remains in superior vena cava. IMPRESSION: Improving aeration both lung bases with minimal residual. Mild stable cardiomegaly. The above report was generated using voice recognition software. It may contain grammatical, syntax or spelling errors. Electronically signed by: Gael Langley M.D. 12/13/2017 2:39 PM Dictated Date/Time: 12/13/2017 2:36 PM
[2017-12-13 14:43] VITALS: O2SAT 94; Ht 152.4 cm; Wt 68.3 kg
[2017-12-13 14:45] LABS: INR 1.1 (0.9-1.1); PTT PATIENT 27.3 SECONDS (21.0-31.0)
[2017-12-13 14:52] LABS: BLOOD UREA NITROGEN 14 mg/dl (7-18); CARBON DIOXIDE 31 mmol/L (21-32); CREATININE 0.86 mg/dl (0.60-1.20); GLUCOSE 163 mg/dl (70-99); POTASSIUM 3.6 mmol/L (3.5-5.1); SODIUM 136 mmol/L (136-145)
[2017-12-13 14:53] LABS: ALBUMIN 1.6 gm/dl (3.4-5.0); ALT/SGPT 11 U/L (12-78); AST/SGOT 13 U/L (15-37); CALCIUM 8.6 mg/dl (8.5-10.1); LIPASE 69 U/L (73-393)
[2017-12-13] MEDS ORDERED: VANC1INJ94 IV (14:57)
[2017-12-13] MEDS ORDERED: CTP/1 PO (14:57)
[2017-12-13] MEDS ORDERED: ERTA1INJ IV (14:57)
[2017-12-13] MEDS ORDERED: PANT40TA PO (14:57)
[2017-12-13] MEDS ORDERED: KPP/1000 PO (14:57)
[2017-12-13] MEDS ORDERED: FOLI1TAB8 PO (14:57)
[2017-12-13] MEDS ORDERED: AMLO-114 PO (14:57)
[2017-12-13] MEDS ORDERED: CALC-354 PO (14:57)
[2017-12-13] MEDS ORDERED: SENN-91 PO (14:57)
[2017-12-13] MEDS ORDERED: CYAN100T PO (14:57)
[2017-12-13] MEDS ORDERED: MULT-506 PO (14:57)
[2017-12-13] MEDS ORDERED: INSDGI SC (14:57)
[2017-12-13 14:58] LABS: ALKALINE PHOSPHATASE 83 U/L (45-117); TOTAL PROTEIN 5.8 gm/dl (6.4-8.2)
[2017-12-13 15:26] LABS: INFLUENZA B ANTIGEN Neg for Influ B (NEG)
[2017-12-13] MEDS ORDERED: ALBUT/IPRATROP 3MG/0.5MG NEB 3 ML VIAL INH STA (16:13)
[2017-12-13 17:00] VITALS: TEMP 37.2
[2017-12-13] MEDS ORDERED: FUROSEMIDE 40 MG/4 ML VIAL IV STA (17:27)
[2017-12-13] MEDS ORDERED: AZITHROMYCIN IV 500 MG in DEXTROSE 5% 250ML 250 ML IV STA (17:27)
[2017-12-13] MEDS ORDERED: ERTAPENEM 1 GM ADDVIAL IV STA (17:57)
[2017-12-13] MEDS ORDERED: AZITHROMYCIN 250 MG TAB PO STA (17:57)
[2017-12-13] MEDS ORDERED: ERTAPENEM IV 1 GM in SODIUM CHLOR 0.9% AD-VAN 50ML IV STA (18:09)
[2017-12-13] MEDS ORDERED: AZIT250T PO (18:13)
[2017-12-13] MEDS ORDERED: IPRASOL4 INH (18:14)
[2017-12-13 18:19] LABS: INFLUENZA A PCR Neg for Influ A (NEG); INFLUENZA B PCR Neg for Influ B (NEG)
[2017-12-13 19:15] VITALS: BP 141/61; PULSE 64; O2SAT 99
== END 2017-12-13 19:15 | disposition home or self-care (01) ==
LOC: EDBD 14:00 → C.EDA 14:01
DX: J40 Bronchitis, not specified as acute or chronic (principal); Z79.899 Other long term (current) drug therapy; Z88.0 Allergy status to penicillin; Z88.8 Allergy status to other drugs, medicaments and biological substances; E11.22 Type 2 diabetes mellitus with diabetic chronic kidney disease; N18.3 Chronic kidney disease, stage 3 (moderate); G40.909 Epilepsy, unspecified, not intractable, without status epilepticus; M81.0 Age-related osteoporosis without current pathological fracture; F41.8 Other specified anxiety disorders; Z96.649 Presence of unspecified artificial hip joint

== ENCOUNTER 2017-12-22 14:20 | Inpatient (IN) | payer OTHER, MEDICARE ==
[~2017-12-22] VITALS: Ht 157.5 cm; Wt 64.1 kg
[~2017-12-22 14:20] MED LIST changes: +AMLO-114 PO; +AZIT250T PO; +CALC-354 PO; -CALCTAB7 PO; +CTP/1 PO; -CTP1 PO; +CYAN100T PO; -DENO60SO SQ; -DOCU100C31 PO; +ERTA1INJ IV; -FERR1TAB13 PO; -FLV1 PO; +FOLI1TAB8 PO; +INSDGI SC; -INSDGIPEN SC; +IPRASOL4 INH; +KPP/1000 PO; -KPPS PO; -MRLP17X PO; +MULT-506 PO; -MULT-890 PO; -NRV/10 PO; +PANT40TA PO; -PRT40 PO; +SENN-91 PO; +VANC1INJ94 IV; -VTMB12100 PO; -ZOLP5TAB PO
[2017-12-22] MEDS ORDERED: OPTIRAY 320 IV PRN (14:45)
--- NOTE | 2017-12-22 14:51 | DIAGNOSTIC IMAGING REPORT ---
CHEST ONE VIEW PORTABLE HISTORY: 87 years-old Female fever acute fever COMPARISON: Chest radiograph 12/13/2017 TECHNIQUE: Portable AP view of the chest FINDINGS: Cardiac silhouette is enlarged. Atherosclerosis of the aorta. Study is limited secondary to patient rotation to the left. Pulmonary vascular congestion is noted without pneumothorax. Linear subsegmental opacity of the lateral left midlung. Small bilateral pleural effusions, left greater then right with hazy perihilar and bibasilar opacities. There is mild progression of the bibasilar opacities. Right-sided PICC is unchanged. Surgical clips project of the right upper abdomen. Chronic post traumatic changes of the right proximal humerus. Bones appear grossly intact. IMPRESSION: 1. Cardiomegaly with mild pulmonary edema. 2. Small bilateral pleural effusions with mildly worsened hazy bibasilar opacities suggesting atelectasis or pneumonia. The above report was generated using voice recognition software. It may contain grammatical, syntax or spelling errors. Electronically signed by: Shane Mcdermott M.D. 12/22/2017 2:49 PM Dictated Date/Time: 12/22/2017 2:47 PM
[2017-12-22] MEDS ORDERED: [UNRECOGNIZED DRUG - CODE] PO (14:58)
[2017-12-22 14:59] LABS: BASO % 0.1 %; BASO ABS # 0.03 K/uL (0-0.2); EOS % 2.2 %; EOS ABS # 0.46 K/uL (0-0.5); HEMATOCRIT 27.6 % (37-47); HEMOGLOBIN 8.9 g/dL (12.0-16.0); IG# 0.14 K/uL (0.00-0.02); LYMPH % 9.3 %; LYMPH ABS # 1.99 K/uL (1.2-3.4); MEAN CELL VOLUME 92.3 fL (80-100); MEAN CORPUSCULAR HEMOGLOBIN 29.8 pg (25-34); MEAN CORPUSCULAR HGB CONC 32.2 g/dl (32-36); MEAN PLATELET VOLUME 8.5 fL (7.4-10.4); MONO ABS # 1.08 K/uL (0.11-0.59); NEUT % 82.7 %; NEUT ABS # 17.69 K/uL (1.4-6.5); PLATELET COUNT 327 K/uL (130-400); RED CELL DISTRIBUTION WIDTH CV 16.8 % (11.5-14.5); RED CELL DISTRIBUTION WIDTH SD 56.7 fL (36.4-46.3); WHITE BLOOD COUNT 21.39 K/uL (4.8-10.8)
[2017-12-22] MEDS ORDERED: IPRASOL4 INH (15:03)
[2017-12-22 15:07] LABS: ISTAT CREATININE 0.9 mg/dl (0.6-1.3); ISTAT IONIZED CALCIUM 1.37 mmol/l (1.12-1.32); ISTAT POTASSIUM 3.1 mEq/L (3.3-5.0)
[2017-12-22 15:09] LABS: INR 1.1 (0.9-1.1)
[2017-12-22] MEDS ORDERED: PROB1TAB16 PO (15:11)
[2017-12-22 15:18] LABS: ALBUMIN 1.9 gm/dl (3.4-5.0); ALT/SGPT 9 U/L (12-78); AST/SGOT 11 U/L (15-37); BLOOD UREA NITROGEN 16 mg/dl (7-18); CALCIUM 9.8 mg/dl (8.5-10.1); CARBON DIOXIDE 34 mmol/L (21-32); CREATININE 0.76 mg/dl (0.60-1.20); GLUCOSE 182 mg/dl (70-99); POTASSIUM 3.1 mmol/L (3.5-5.1); SODIUM 141 mmol/L (136-145)
[2017-12-22] MEDS ORDERED: ZINC1PST TOP (15:21)
[2017-12-22] MEDS ORDERED: OXGN (15:22)
[2017-12-22 15:23] LABS: ALKALINE PHOSPHATASE 109 U/L (45-117); CKMB < 0.5 ng/ml (0.5-3.6); TOTAL PROTEIN 6.2 gm/dl (6.4-8.2)
[2017-12-22] MEDS ORDERED: SNTO30 TOP (15:25)
[2017-12-22] MEDS ORDERED: ZOLP5TAB PO (15:27)
[2017-12-22] MEDS ORDERED: ACET-1693 PO ×2 (15:31→15:34)
--- NOTE | 2017-12-22 16:06 | DIAGNOSTIC IMAGING REPORT ---
(CHEST) THORAX WITHOUT CT DOSE: 287.35 mGy.cm CLINICAL HISTORY: 87 years-old Female with ? pna on abx . Follow-up study in a patient with pneumonia TECHNIQUE: Multiaxial CT images of the chest were performed without contrast. A dose lowering technique was utilized adhering to the principles of ALARA. COMPARISON: Chest radiograph of same day, CTA chest 12/04/2017 FINDINGS: Study is limited secondary to patient positioning. No dominant thyroid nodule identified. There is mild to moderate multichamber cardiac enlargement with small pericardial effusion. Extensive coronary arterial disease is noted along with aortic annular calcifications. Dilation of the ascending thoracic aorta measures up to 4.3 x 4.3 cm. Moderate atherosclerosis of the thoracic aorta. Distal descending thoracic aorta measures 3.4 cm transversely. Right-sided PICC terminates in the mid SVC. Small to moderate bilateral pleural effusions without pneumothorax. Mild bilateral interlobular septal thickening of the upper lung zones suggests minimal pulmonary vascular congestion. There are subsegmental right and segmental left basilar consolidative opacities with the left lower lobe nearly completely opacified. Mucous plugging is noted within the bilateral lower lobe bronchi. Mild bilateral bronchial wall thickening. Thickening of the left adrenal gland partially imaged. Moderate diffuse body wall edema. Osteoporotic appearance of the bones. Chronic fracture deformity of the proximal right humerus. 20% anterior endplate compression deformity of the T12 vertebral body without retropulsion is noted, unchanged from comparison. IMPRESSION: 1. Small to moderate sized bilateral pleural effusions are noted in addition to left greater than right bilateral lower lobe consolidation and multifocal lower lobe mucous plugging. Only a minimal portion of the left lower lobe is aerated. These findings suggest atelectasis with superimposed pneumonia also within the differential. 2. Cardiomegaly with minimal pulmonary edema manifested by intralobular septal thickening. Small pericardial effusion with moderate body wall edema compatible with fluid overload. 3. Fusiform aneurysmal dilation of the ascending thoracic aorta redemonstrated, 4.3 cm. 4. Additional findings as above. Electronically signed by: Shane Mcdermott M.D. 12/22/2017 4:05 PM Dictated Date/Time: 12/22/2017 3:49 PM
[2017-12-22] MEDS ORDERED: CEFEPIME IV 1,000 MG in DEXTROSE 5% 100ML 100 ML IV STA (16:25)
--- NOTE | 2017-12-22 16:28 | DIAGNOSTIC IMAGING REPORT ---
R LOWER EXTREMITY WITH HISTORY: 87 years-old Female r hip ? abscess prior right hip arthroplasty with infection concern for abscess. COMPARISON: Right hip radiographs 11/18/2017 TECHNIQUE: Multiple axial CT images of the right hip were obtained following the intravenous administration of 93 mL Optiray 320 IV contrast. A dose lowering technique was used consistent with the principals of RAMBO. FINDINGS: Evaluation of the soft tissues about the right hip is limited secondary to streak artifact from right hip arthroplasty. The femoral and acetabular components appear to be in satisfactory positioning without evidence of loosening or periprosthetic fracture. No malalignment. The there is a transversely oriented lucency of the posterior acetabulum with partially sclerotic margins nicely seen on 80 of series 3. The imaged sacrum appears intact. Interval development of periostitis with pericortical calcifications about the anterolateral proximal diaphyseal right femur measuring up to 4.9 x 2.0 x 6.7 cm nicely seen on image 264 of series 3 and image 37 of series 300. Foci of air noted along the superior margin of these calcifications, image 227 series 3. Ill-defined peripherally enhancing fluid collection posterior and inferior to these calcifications measures up to 2.4 x 3.1 x 3.8 cm nicely seen on image 346 of series 4, partially obscured by streak artifact. Fluid along the posterior superior margin of the femoral head measures up to 4.8 x 4.0 cm on image 107 series 4. Moderate subcutaneous edema about the right hip and imaged right thigh with associated skin thickening. Large right inguinal lymph nodes are seen measuring up to 3.4 x 2.1 cm. Extensive peripheral vascular disease. Partially imaged large calcified lesion of the right hemipelvis measures over 5 cm in length suggesting calcified fibroid. Large stool ball of the rectal vault. IMPRESSION: 1. Right hip arthroplasty in satisfactory alignment without evidence of hardware fracture or loosening. Ill-defined linear lucency with peripheral cortication involves the posterior acetabulum which may reflect a subacute or chronic fracture without malalignment. 2. Interval development of periostitis with heterotopic ossifications adjacent to the anterolateral proximal right femoral shaft along with ill-defined fluid collections adjacent to the proximal femoral shaft and posterior lateral to the femoral head, possibly reflecting abscess formations as above with areas of deep tissue air. Moderate subcutaneous edema with skin thickening about the right thigh suggests cellulitis. 3. Enlarged right inguinal lymph nodes measuring up to 2.1 cm in short are likely reactive. 4. Moderate constipation. The above report was generated using voice recognition software. It may contain grammatical, syntax or spelling errors. Electronically signed by: Shane Mcdermott M.D. 12/22/2017 4:26 PM Dictated Date/Time: 12/22/2017 4:14 PM
--- NOTE | 2017-12-22 18:34 | History and Physical ---
History & Physical Date & Time of Service: Dec 22, 2017 at 18:34 . Chief Complaint: elevated WBC count . Primary Care Physician: Vesta Vega M.D. . History of Present Illness Source: clinic records, hospital records 87-year-old female followed by Dr. Vega at [facility]. History of hypertension, diabetes, dementia, and other problems noted below. Currently being treated for right hip infection. Recent cultures from the right hip have grown Peptostreptococcus sp, Prevotella sp, Eggerthella lenta, Actinomyces israelii. [facility]com[facility]. Receiving wound treatment with Wound Vac. CBC was performed that showed a white count of 25,000. Noted to have increasing confusion. O2 saturations reportedly low at [facility]. Patient unable to provide any additional history because of her confusion. . Past Medical/Surgical History Chronic and Resolved Medical Problems: (1) Anxiety disorder Status: Chronic (2) Cerebrovascular disease Permanent Comment: s/p stroke without significant residual Status: Chronic (3) CKD (chronic kidney disease) stage 3, GFR 30-59 ml/min Status: Chronic (4) Dementia Status: Chronic (5) Depression Status: Chronic (6) DM type 2 (diabetes mellitus, type 2) Status: Chronic (7) Hearing loss Status: Chronic (8) Hyperlipidemia Status: Chronic (9) Hypertension Status: Chronic (10) Osteoporosis Status: Chronic (11) PVD (peripheral vascular disease) Status: Chronic (12) Seizure disorder Status: Chronic (13) Vulvar malignant neoplasm Status: Chronic Surgical Problems: (1) History of total hip replacement Status: Chronic (2) Hx of cataract surgery Status: Chronic (3) S/P tonsillectomy and adenoidectomy Status: Chronic (4) Status post appendectomy Status: Chronic (5) Status post cholecystectomy Status: Chronic . Family History FH: lung cancer BROTHER FH: stroke FATHER Oral cancer MOTHER Social History Smoking Status: Never Smoker Alcohol Use: none Drug Use: none Marital Status: Housing status: prison Occupational Status: retired Immunizations History of Influenza Vaccine: Yes History of Tetanus Vaccine?: Yes History of Pneumococcal: Yes Pneumococcal Date: Sep 05, 2002 History of Hepatitis B Vaccine: No Allergies Coded Allergies: Amoxicillin (Verified Allergy, Severe, CVA SYMPTOMS, 12/22/17) Penicillins (Unverified Allergy, Unknown, POSS CX OF CVA, 12/22/17) Risedronate (Unverified Allergy, Unknown, UNKNOWN, 12/22/17) Prednisone (Verified Adverse Reaction, Intermediate, HIGH BS, 12/22/17) Diphenhydramine (Verified Adverse Reaction, Mild, N&V, 12/22/17) Home Medications Scheduled Amino Acids (Argiment), 1 PKT PO BID Amlodipine (Norvasc), 10 MG PO DAILY Aspirin (Aspirin Ec), 81 MG PO BIDM Calcium Carbonate-Cholecalcife (Caltrate 600+D), 1 TAB PO BID Cholecalciferol (Vitamin D-3), 1,000 UNITS PO DAILY Citalopram Hydrobromide (Citalopram Hydrobromide), 20 MG PO HS Clonidine Hcl (Catapres), 0.1 MG PO BID Collagenase (Santyl), 1 APPLN TOP UD Cyanocobalamin (Vitamin B-12), 100 MCG PO DAILY Ertapenem Sodium (Invanz), 1 GM IV DAILY Folic Acid (Folvite), 1 MG PO DAILY Furosemide (Lasix), 20 MG PO DAILY Home O2 Therapy (Oxygen), 2 LITERS NA CONTINOUS Insulin Glargine (Lantus), 6 UNITS SC BID Ipratropium-Albuterol (Duoneb), 1 TREATMENT INH QID Probiotic Product (Probiotic), 1 TAB PO DAILY Sennosides-Docusate Sodium (Senna S), 2 TABS PO BID Simvastatin (Zocor), 20 MG PO QPM Vancomycin HCl in Sodium Chlor (VANCOMYCIN in NSS), 1.25 GM IV Q36H Zinc Oxide (Topical) (Desitin Maximum Strength), 1 APPLN TOP UD Scheduled PRN Acetaminophen Tab (Tylenol), 650 MG PO Q4H PRN for Pain Acetaminophen Tab (Tylenol), 650 MG PO Q4H PRN for Fever Zolpidem Tartrate (Ambien), 5 MG PO HS PRN for insomia Review of Systems Unable to obtain due to patient's condition. . Physical Exam Vital Signs Date Time Temp Pulse Resp B/P (MAP) Pulse Ox O2 Delivery O2 Flow Rate FiO2 12/22/17 17:02 71 20 174/69 99 Nasal Cannula 4.0 12/22/17 15:50 72 20 167/73 100 Nasal Cannula 12/22/17 14:33 37.2 74 163/69 97 Nasal Cannula 4.0 CONSTITUTIONAL vital signs as noted above elderly female, no acute distress EYES conjunctivae clear; lids normal pupils equal and reactive to light EARS, NOSE, MOUTH AND THROAT external inspection of ears and nose unremarkable hard of hearing oropharynx clear upper and lower dentures NECK no masses; trachea midline thyroid normal RESPIRATORY poor respiratory effort; no respiratory distress decreased breath sounds at bases CARDIOVASCULAR regular rate and rhythm III/ systolic murmur at base and apex; no gallop appreciated carotid arteries 2/2 abdominal aorta not palpable pedal pulses diminished capillary refill toes < 2 seconds no pretibial edema GASTROINTESTINAL normal bowel sounds, soft, nontender; no palpable masses no hepatomegaly; no splenomegaly Obrien catheter draining slightly turbid urine LYMPHATIC no cervical adenopathy MUSCULOSKELETAL no cyanosis; no digital clubbing no calf tenderness diffuse weakness PICC RUE without surrounding erythema or drainage SKIN pustular rash on back right hip wound with Wound Vac applied, surrounding erythema multiple stage 2 sacral decubiti ulcer left posterior heal stage 2, 10 mm ulcer overlying left medial MTP stage 2, 20 mm warm and dry NEUROLOGIC PERRL, EOMI PSYCHIATRIC confused . Diagnostics Laboratory Results Results Past 24 Hours Test 12/22/17 14:45 12/22/17 14:51 12/22/17 14:55 12/22/17 15:00 Range/Units White Blood Count 21.39 4.8-10.8 K/uL Red Blood Count 2.99 4.2-5.4 M/uL Hemoglobin 8.9 12.0-16.0 g/dL Hematocrit 27.6 37-47 % Mean Corpuscular Volume 92.3 80-100 fL Mean Corpuscular Hemoglobin 29.8 25-34 pg Mean Corpuscular Hemoglobin Concent 32.2 32-36 g/dl Platelet Count 327 130-400 K/uL Mean Platelet Volume 8.5 7.4-10.4 fL Neutrophils (%) (Auto) 82.7 % Lymphocytes (%) (Auto) 9.3 % Monocytes (%) (Auto) 5.0 % Eosinophils (%) (Auto) 2.2 % Basophils (%) (Auto) 0.1 % Neutrophils # (Auto) 17.69 1.4-6.5 K/uL Lymphocytes # (Auto) 1.99 1.2-3.4 K/uL Monocytes # (Auto) 1.08 0.11-0.59 K/uL Eosinophils # (Auto) 0.46 0-0.5 K/uL Basophils # (Auto) 0.03 0-0.2 K/uL RDW Standard Deviation 56.7 36.4-46.3 fL RDW Coefficient of Variation 16.8 11.5-14.5 % Immature Granulocyte % (Auto) 0.7 % Immature Granulocyte # (Auto) 0.14 0.00-0.02 K/uL Schistocytes 1+ Prothrombin Time 11.9 9.0-12.0 SECONDS Prothromb Time International Ratio 1.1 0.9-1.1 Sodium Level 141 136-145 mmol/L Potassium Level 3.1 3.5-5.1 mmol/L Chloride Level 103 98-107 mmol/L Carbon Dioxide Level 34 21-32 mmol/L Anion Gap 4.0 15.0 16-25 mmol/L Blood Urea Nitrogen 16 7-18 mg/dl Creatinine 0.76 0.60-1.20 mg/dl Estimated GFR () 81.2 Estimated GFR (Non- 70.0 BUN/Creatinine Ratio 21.7 10-20 Random Glucose 182 70-99 mg/dl Calcium Level 9.8 8.5-10.1 mg/dl Magnesium Level 1.8 1.8-2.4 mg/dl Total Bilirubin 0.3 0.2-1 mg/dl Direct Bilirubin 0.1 0-0.2 mg/dl Aspartate Amino Transf (AST/SGOT) 11 15-37 U/L Alanine Aminotransferase (ALT/SGPT) 9 12-78 U/L Alkaline Phosphatase 109 45-117 U/L Total Creatine Kinase 10 26-192 U/L Creatine Kinase MB < 0.5 0.5-3.6 ng/ml Creatine Kinase MB Ratio 0-3.0 Troponin I 0.018 0-0.045 ng/ml Total Protein 6.2 6.4-8.2 gm/dl Albumin 1.9 3.4-5.0 gm/dl Bedside Lactic Acid Venous 1.22 0.90-1.70 mmol/L Bedside Hemoglobin 9.2 12.0-16.0 g/dl Bedside Hematocrit 27 37-47 % Bedside Sodium 144 135-144 mEq/L Bedside Potassium 3.1 3.3-5.0 mEq/L Bedside Chloride 98 101-112 mEq/L Bedside Total CO2 35 24-31 mEq/l Bedside Blood Urea Nitrogen 16 7-18 mg/dl Bedside Creatinine 0.9 0.6-1.3 mg/dl Bedside Glucose (other) 186 70-99 mg/dl Bedside Ionized Calcium (Antonio) 1.37 1.12-1.32 mmol/l Urine Color YELLOW Urine Appearance CLEAR CLEAR Urine pH 6.0 4.5-7.5 Urine Specific [place] 1.014 1.000-1.030 Urine Protein 1+ NEG Urine Glucose (UA) NEG NEG Urine Ketones NEG NEG Urine Occult Blood 2+ NEG Urine Nitrite NEG NEG Urine Bilirubin NEG NEG Urine Urobilinogen NEG NEG Urine Leukocyte Esterase TRACE NEG Urine WBC (Auto) 10-30 0-5 /hpf Urine RBC (Auto) >30 0-4 /hpf Urine Hyaline Casts (Auto) 0-5 /lpf Urine Epithelial Cells (Auto) >30 0-5 /lpf Urine Bacteria (Auto) NEG NEG Urine Renal Epithelial Cells 0-5 /lpf Urine Pathogenic Casts 0 /lpf Microbiology Results 12/22/17 Blood Culture, Received Pending 12/22/17 Blood Culture, Received Pending 12/22/17 Urine Culture, Received Pending Diagnostic Radiology CHEST ONE VIEW PORTABLE COMPARISON: Chest radiograph 12/13/2017 FINDINGS: Cardiac silhouette is enlarged. Atherosclerosis of the aorta. Study is limited secondary to patient rotation to the left. Pulmonary vascular congestion is noted without pneumothorax. Linear subsegmental opacity of the lateral left midlung. Small bilateral pleural effusions, left greater then right with hazy perihilar and bibasilar opacities. There is mild progression of the bibasilar opacities. Right-sided PICC is unchanged. Surgical clips project of the right upper abdomen. Chronic post traumatic changes of the right proximal humerus. Bones appear grossly intact. IMPRESSION: 1. Cardiomegaly with mild pulmonary edema. 2. Small bilateral pleural effusions with mildly worsened hazy bibasilar opacities suggesting atelectasis or pneumonia. The above report was generated using voice recognition software. It may contain grammatical, syntax or spelling errors. Electronically signed by: Shane Mcdermott M.D. 12/22/2017 2:49 PM Dictated Date/Time: 12/22/2017 2:[address] (CHEST) THORAX WITHOUT COMPARISON: Chest radiograph of same day, CTA chest 12/04/2017 FINDINGS: Study is limited secondary to patient positioning. No dominant thyroid nodule identified. There is mild to moderate multichamber cardiac enlargement with small pericardial effusion. Extensive coronary arterial disease is noted along with aortic annular calcifications. Dilation of the ascending thoracic aorta measures up to 4.3 x 4.3 cm. Moderate atherosclerosis of the thoracic aorta. Distal descending thoracic aorta measures 3.4 cm transversely. Right-sided PICC terminates in the mid SVC. Small to moderate bilateral pleural effusions without pneumothorax. Mild bilateral interlobular septal thickening of the upper lung zones suggests minimal pulmonary vascular congestion. There are subsegmental right and segmental left basilar consolidative opacities with the left lower lobe nearly completely opacified. Mucous plugging is noted within the bilateral lower lobe bronchi. Mild bilateral bronchial wall thickening. Thickening of the left adrenal gland partially imaged. Moderate diffuse body wall edema. Osteoporotic appearance of the bones. Chronic fracture deformity of the proximal right humerus. 20% anterior endplate compression deformity of the T12 vertebral body without retropulsion is noted, unchanged from comparison. IMPRESSION: 1. Small to moderate sized bilateral pleural effusions are noted in addition to left greater than right bilateral lower lobe consolidation and multifocal lower lobe mucous plugging. Only a minimal portion of the left lower lobe is aerated. These findings suggest atelectasis with superimposed pneumonia also within the differential. 2. Cardiomegaly with minimal pulmonary edema manifested by intralobular septal thickening. Small pericardial effusion with moderate body wall edema compatible with fluid overload. 3. Fusiform aneurysmal dilation of the ascending thoracic aorta redemonstrated, 4.3 cm. 4. Additional findings as above. Electronically signed by: Shane Mcdermott M.D. 12/22/2017 4:05 PM Dictated Date/Time: 12/22/2017 3:[address] RT LOWER EXTREMITY WITH COMPARISON: Right hip radiographs 11/18/2017 FINDINGS: Evaluation of the soft tissues about the right hip is limited secondary to streak artifact from right hip arthroplasty. The femoral and acetabular components appear to be in satisfactory positioning without evidence of loosening or periprosthetic fracture. No malalignment. The there is a transversely oriented lucency of the posterior acetabulum with partially sclerotic margins nicely seen on 80 of series 3. The imaged sacrum appears intact. Interval development of periostitis with pericortical calcifications about the anterolateral proximal diaphyseal right femur measuring up to 4.9 x 2.0 x 6.7 cm nicely seen on image 264 of series 3 and image 37 of series 300. Foci of air noted along the superior margin of these calcifications, image 227 series 3. Ill-defined peripherally enhancing fluid collection posterior and inferior to these calcifications measures up to 2.4 x 3.1 x 3.8 cm nicely seen on image 346 of series 4, partially obscured by streak artifact. Fluid along the posterior superior margin of the femoral head measures up to 4.8 x 4.0 cm on image 107 series 4. Moderate subcutaneous edema about the right hip and imaged right thigh with associated skin thickening. Large right inguinal lymph nodes are seen measuring up to 3.4 x 2.1 cm. Extensive peripheral vascular disease. Partially imaged large calcified lesion of the right hemipelvis measures over 5 cm in length suggesting calcified fibroid. Large stool ball of the rectal vault. IMPRESSION: 1. Right hip arthroplasty in satisfactory alignment without evidence of hardware fracture or loosening. Ill-defined linear lucency with peripheral cortication involves the posterior acetabulum which may reflect a subacute or chronic fracture without malalignment. 2. Interval development of periostitis with heterotopic ossifications adjacent to the anterolateral proximal right femoral shaft along with ill-defined fluid collections adjacent to the proximal femoral shaft and posterior lateral to the femoral head, possibly reflecting abscess formations as above with areas of deep tissue air. Moderate subcutaneous edema with skin thickening about the right thigh suggests cellulitis. 3. Enlarged right inguinal lymph nodes measuring up to 2.1 cm in short are likely reactive. 4. Moderate constipation. The above report was generated using voice recognition software. It may contain grammatical, syntax or spelling errors. Electronically signed by: Shane Mcdermott M.D. 12/22/2017 4:26 PM Dictated Date/Time: 12/22/2017 4:14 PM . EKG EKG performed at 14:56 reviewed and demonstrated NSR at 73 / minute, T-wave flattening lateral precordial leads. . Impression Assessment and Plan LEUKOCYTOSIS Currently being treated for multi-organism right hip infection with vancomycin and ertapenem. WBC 25,000. Afebrile. Does not appear to be septic. [id number] lactate 1.22. Possible abscess and/or osteomyelitis right hip. Possible pneumonia (vs atelectasis). Possible UTI. Possible cellulitis on back. Consider PICC infection, although site looks OK. Continue IV vancomycin to cover gram + organisms, including possible healthcare associated pneumonia. Change gram-negative coverage from ertapenem to cefepime. Add clindamycin for anaerobic coverage. Consult ID and Wound Care Nursing. HYPOXIA CT chest demonstrates bilateral pleural effusions, bibasilar consolidation and mucous plugging, atelectasis left lower lobe. Management of possible pneumonia as discussed above. Deep breaths / incentive spirometry as tolerated. Consider Pulmonary Medicine consultation if no improvement, although conservative management may be most appropriate. Supplemental O2 as needed. PLEURAL EFFUSIONS Bilateral pleural effusions, previously noted but larger. Seen by Pulmonary Medicine in past; thoracentesis is not performed. Pleural effusions may be secondary to CHF or other etiologies. Management of CHF as discussed below. Follow. CHF Bilateral pleural effusions and some degree of pulmonary edema suggested on CT of chest. Recent echocardiogram showed normal left ventricular systolic function, grade 1 diastolic dysfunction. Acute on chronic left ventricular diastolic heart failure. Titrate diuretics. ALTERED MENTAL STATUS Probable encephalopathy secondary to infection. Follow. HYPOKALEMIA PO repletion. Follow. HYPERTENSION Hemodynamically stable. Continue amlodipine and clonidine. DM TYPE 2 Fairly well controlled. Hemoglobin A1c 7.6 on 11/17/17. Random blood sugar 182. Basal bolus insulin therapy with Lantus + NovoLog per protocol. SUSPECTED VULVAR MALIGNANCY Patient has opted not to pursue treatment. Symptomatic management PRN. VTE PROPHYLAXIS Moderately high risk for VTE. SQ heparin. RESUSCITATION STATUS DNR per previous discussions. DISPOSITION Admit to Med-Surg Unit. Expected return to [facility]. Son given update by phone. . Resuscitation Status VTE Prophylaxis Will order VTE Prophylaxis: Yes
[2017-12-22] MEDS ORDERED: ACETAMINOPHEN 325 MG TAB PO PRN (18:45)
[2017-12-22 19:24] VITALS: BP 175/66; PULSE 69; TEMP 36.5; O2SAT 100; BMI 25.8
[2017-12-22 20:00] VITALS: O2SAT 100
[2017-12-22] MEDS ORDERED: DEXTROSE 50% 50 ML SYR IV PRN (20:15)
[2017-12-22] MEDS ORDERED: GLUCAGON FOR INJ 1 MG VIAL SQ PRN (20:15)
[2017-12-22] MEDS ORDERED: GLUCOSE 10 TABS/TUBE PO PRN (20:15)
[2017-12-22] MEDS ORDERED: GLUCOSE 40% GEL 15 GM TUBE PO PRN (20:15)
[2017-12-22] MEDS: ALBUT/IPRATROP 3MG/0.5MG NEB 3 ML VIAL INH SCH (20:28)
[2017-12-22 20:34] VITALS: PULSE 70; O2SAT 98
[2017-12-22] MEDS: DOCUSATE SODIUM/SENNA 50/8.6MG TAB PO SCH (20:57)
[2017-12-22] MEDS: CLONIDINE HCL 0.1 MG TAB PO SCH (20:57)
[2017-12-22] MEDS: CITALOPRAM 20 MG TAB PO SCH ×2 (20:58→22:00)
[2017-12-22] MEDS: SIMVASTATIN 20 MG TAB PO SCH (20:58)
[2017-12-22] MEDS: INSULIN GLARGINE SOLOSTAR 100 UNITS/ML 3 ML PEN SC SCH (21:01)
[2017-12-22] MEDS: HEPARIN SOD 5000 UNIT/0.5 ML CARP SQ SCH (21:01)
--- NOTE | 2017-12-22 21:30 | EMERGENCY ROOM VISIT NOTE ---
History Report prepared by Dori: Trini Mendosa Under the Supervision of: Dr. Raulito Norman D.O. First contact with patient: 14:20 Chief Complaint: ABNORMAL LABS Stated Complaint: ABNORMAL LABS History of Present Illness The patient is an 87 year old female who presents to the Emergency Room with an episode of abnormal labs UNIFORMER. The patient presents to the ED by EMS from [facility]. [place] [address] which is the higher than normal for the patient despite being on antibiotics. The patient has also been confused. The patient had right hip surgery several months ago. She has had an infection around the surgical site and has a wound vac. She is on Invanz and vancomycin currently. She is normally on 4L of oxygen. The history is limited secondary to the patient's altered mental status. Source of History: EMS History Limited By: AMS Onset: UNIFORMER Position: other (global) Symptom Intensity: WBC count 38779 Quality: other (abnormal labs) Timing: other (episodic) Review of Systems Limited secondary to altered mental status. 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 Surgical Problems: (1) History of total hip replacement (2) Hx of cataract surgery (3) S/P tonsillectomy and adenoidectomy (4) Status post appendectomy (5) Status post cholecystectomy Family History FH: lung cancer BROTHER FH: stroke FATHER Oral cancer MOTHER Social History Smoking Status: Unknown if Ever Smoked Alcohol Use: none Drug Use: none Marital Status: Housing Status: jail Occupation Status: retired Current/Historical Medications Scheduled Amino Acids (Argiment), 1 PKT PO BID Amlodipine (Norvasc), 10 MG PO DAILY Aspirin (Aspirin Ec), 81 MG PO BIDM Calcium Carbonate-Cholecalcife (Caltrate 600+D), 1 TAB PO BID Cholecalciferol (Vitamin D-3), 1,000 UNITS PO DAILY Citalopram Hydrobromide (Citalopram Hydrobromide), 20 MG PO HS Clonidine Hcl (Catapres), 0.1 MG PO BID Collagenase (Santyl), 1 APPLN TOP UD Cyanocobalamin (Vitamin B-12), 100 MCG PO DAILY Ertapenem Sodium (Invanz), 1 GM IV DAILY Folic Acid (Folvite), 1 MG PO DAILY Furosemide (Lasix), 20 MG PO DAILY Home O2 Therapy (Oxygen), 2 LITERS NA CONTINOUS Insulin Glargine (Lantus), 6 UNITS SC BID Ipratropium-Albuterol (Duoneb), 1 TREATMENT INH QID Probiotic Product (Probiotic), 1 TAB PO DAILY Sennosides-Docusate Sodium (Senna S), 2 TABS PO BID Simvastatin (Zocor), 20 MG PO QPM Vancomycin HCl in Sodium Chlor (VANCOMYCIN in NSS), 1.25 GM IV Q36H Zinc Oxide (Topical) (Desitin Maximum Strength), 1 APPLN TOP UD Scheduled PRN Acetaminophen Tab (Tylenol), 650 MG PO Q4H PRN for Pain Acetaminophen Tab (Tylenol), 650 MG PO Q4H PRN for Fever Zolpidem Tartrate (Ambien), 5 MG PO HS PRN for insomia Allergies Coded Allergies: Amoxicillin (Verified Allergy, Severe, CVA SYMPTOMS, 12/22/17) Penicillins (Unverified Allergy, Unknown, POSS CX OF CVA, 12/22/17) Risedronate (Unverified Allergy, Unknown, UNKNOWN, 12/22/17) Prednisone (Verified Adverse Reaction, Intermediate, HIGH BS, 12/22/17) Diphenhydramine (Verified Adverse Reaction, Mild, N&V, 12/22/17) Physical Exam Vital Signs Date Time Temp Pulse Resp B/P (MAP) Pulse Ox O2 Delivery O2 Flow Rate FiO2 12/22/17 17:02 71 20 174/69 99 Nasal Cannula 4.0 12/22/17 15:50 72 20 167/73 100 Nasal Cannula 12/22/17 14:33 37.2 74 163/69 97 Nasal Cannula 4.0 Physical Exam GENERAL: Sitting up in bed, chronically ill appearing, disheveled, malnourished EYE EXAM: normal conjunctiva. OROPHARYNX: no exudate, no erythema, lips, buccal mucosa, and tongue normal and mucous membranes are moist NECK: supple, no nuchal rigidity, no adenopathy, non-tender LUNGS: Coarse at bilateral bases. Normal chest wall mechanics HEART: no murmurs, S1 normal and S2 normal ABDOMEN: abdomen soft, non-tender, normo-active bowel sounds, no masses, no rebound or guarding. BACK: Back is symmetrical on inspection and there is no deformity, no midline tenderness, no CVA tenderness. : Obrien in place. SKIN: 2 inch by 2 inch right hip wound vac in place with mild surrounding erythema. Skin break down on bilateral gluteus. Small pustules on bilateral thoracic region. UPPER EXTREMITIES: Right upper extremity with PICC line in place. LOWER EXTREMITIES: Able to wiggle toes. NEURO EXAM: Alert, not oriented to place or date, oriented to name, no obvious focal deficit. Medical Decision & Procedures ER Provider Diagnostic Interpretation: Radiology results as stated below per my review and the radiologist's interpretation: CHEST ONE VIEW PORTABLE HISTORY: 87 years-old Female fever acute fever COMPARISON: Chest radiograph 12/13/2017 TECHNIQUE: Portable AP view of the chest FINDINGS: Cardiac silhouette is enlarged. Atherosclerosis of the aorta. Study is limited secondary to patient rotation to the left. Pulmonary vascular congestion is noted without pneumothorax. Linear subsegmental opacity of the lateral left midlung. Small bilateral pleural effusions, left greater then right with hazy perihilar and bibasilar opacities. There is mild progression of the bibasilar opacities. Right-sided PICC is unchanged. Surgical clips project of the right upper abdomen. Chronic post traumatic changes of the right proximal humerus. Bones appear grossly intact. IMPRESSION: 1. Cardiomegaly with mild pulmonary edema. 2. Small bilateral pleural effusions with mildly worsened hazy bibasilar opacities suggesting atelectasis or pneumonia. The above report was generated using voice recognition software. It may contain grammatical, syntax or spelling errors. Electronically signed by: Shane Mcdermott M.D. 12/22/2017 2:49 PM Dictated Date/Time: 12/22/2017 2:47 PM (CHEST) THORAX WITHOUT CT DOSE: 287.35 mGy.cm CLINICAL HISTORY: 87 years-old Female with ? pna on abx . Follow-up study in a patient with pneumonia TECHNIQUE: Multiaxial CT images of the chest were performed without contrast. A dose lowering technique was utilized adhering to the principles of ALARA. COMPARISON: Chest radiograph of same day, CTA chest 12/04/2017 FINDINGS: Study is limited secondary to patient positioning. No dominant thyroid nodule identified. There is mild to moderate multichamber cardiac enlargement with small pericardial effusion. Extensive coronary arterial disease is noted along with aortic annular calcifications. Dilation of the ascending thoracic aorta measures up to 4.3 x 4.3 cm. Moderate atherosclerosis of the thoracic aorta. Distal descending thoracic aorta measures 3.4 cm transversely. Right-sided PICC terminates in the mid SVC. Small to moderate bilateral pleural effusions without pneumothorax. Mild bilateral interlobular septal thickening of the upper lung zones suggests minimal pulmonary vascular congestion. There are subsegmental right and segmental left basilar consolidative opacities with the left lower lobe nearly completely opacified. Mucous plugging is noted within the bilateral lower lobe bronchi. Mild bilateral bronchial wall thickening. Thickening of the left adrenal gland partially imaged. Moderate diffuse body wall edema. Osteoporotic appearance of the bones. Chronic fracture deformity of the proximal right humerus. 20% anterior endplate compression deformity of the T12 vertebral body without retropulsion is noted, unchanged from comparison. IMPRESSION: 1. Small to moderate sized bilateral pleural effusions are noted in addition to left greater than right bilateral lower lobe consolidation and multifocal lower lobe mucous plugging. Only a minimal portion of the left lower lobe is aerated. These findings suggest atelectasis with superimposed pneumonia also within the differential. 2. Cardiomegaly with minimal pulmonary edema manifested by intralobular septal thickening. Small pericardial effusion with moderate body wall edema compatible with fluid overload. 3. Fusiform aneurysmal dilation of the ascending thoracic aorta redemonstrated, 4.3 cm. 4. Additional findings as above. Electronically signed by: Shane Mcdermott M.D. 12/22/2017 4:05 PM Dictated Date/Time: 12/22/2017 3:49 PM R LOWER EXTREMITY WITH HISTORY: 87 years-old Female r hip ? abscess prior right hip arthroplasty with infection concern for abscess. COMPARISON: Right hip radiographs 11/18/2017 TECHNIQUE: Multiple axial CT images of the right hip were obtained following the intravenous administration of 93 mL Optiray 320 IV contrast. A dose lowering technique was used consistent with the principals of ALARA. FINDINGS: Evaluation of the soft tissues about the right hip is limited secondary to streak artifact from right hip arthroplasty. The femoral and acetabular components appear to be in satisfactory positioning without evidence of loosening or periprosthetic fracture. No malalignment. The there is a transversely oriented lucency of the posterior acetabulum with partially sclerotic margins nicely seen on 80 of series 3. The imaged sacrum appears intact. Interval development of periostitis with pericortical calcifications about the anterolateral proximal diaphyseal right femur measuring up to 4.9 x 2.0 x 6.7 cm nicely seen on image 264 of series 3 and image 37 of series 300. Foci of air noted along the superior margin of these calcifications, image 227 series 3. Ill-defined peripherally enhancing fluid collection posterior and inferior to these calcifications measures up to 2.4 x 3.1 x 3.8 cm nicely seen on image 346 of series 4, partially obscured by streak artifact. Fluid along the posterior superior margin of the femoral head measures up to 4.8 x 4.0 cm on image 107 series 4. Moderate subcutaneous edema about the right hip and imaged right thigh with associated skin thickening. Large right inguinal lymph nodes are seen measuring up to 3.4 x 2.1 cm. Extensive peripheral vascular disease. Partially imaged large calcified lesion of the right hemipelvis measures over 5 cm in length suggesting calcified fibroid. Large stool ball of the rectal vault. IMPRESSION: 1. Right hip arthroplasty in satisfactory alignment without evidence of hardware fracture or loosening. Ill-defined linear lucency with peripheral cortication involves the posterior acetabulum which may reflect a subacute or chronic fracture without malalignment. 2. Interval development of periostitis with heterotopic ossifications adjacent to the anterolateral proximal right femoral shaft along with ill-defined fluid collections adjacent to the proximal femoral shaft and posterior lateral to the femoral head, possibly reflecting abscess formations as above with areas of deep tissue air. Moderate subcutaneous edema with skin thickening about the right thigh suggests cellulitis. 3. Enlarged right inguinal lymph nodes measuring up to 2.1 cm in short are likely reactive. 4. Moderate constipation. The above report was generated using voice recognition software. It may contain grammatical, syntax or spelling errors. Electronically signed by: Shane Mcdermott M.D. 12/22/2017 4:26 PM Dictated Date/Time: 12/22/2017 4:14 PM Laboratory Results 12/22/17 14:45 Red Blood Count 2.99, Mean Corpuscular Volume 92.3, Mean Corpuscular Hemoglobin 29.8, Mean Corpuscular Hemoglobin Concent 32.2, Mean Platelet Volume 8.5, Neutrophils (%) (Auto) 82.7, Lymphocytes (%) (Auto) 9.3, Monocytes (%) (Auto) 5.0, Eosinophils (%) (Auto) 2.2, Basophils (%) (Auto) 0.1, Neutrophils # (Auto) 17.69, Lymphocytes # (Auto) 1.99, Monocytes # (Auto) 1.08, Eosinophils # (Auto) 0.46, Basophils # (Auto) 0.03 12/22/17 14:45 Test 12/22/17 14:45 12/22/17 14:51 12/22/17 14:55 12/22/17 15:00 White Blood Count 21.39 K/uL (4.8-10.8) Red Blood Count 2.99 M/uL (4.2-5.4) Hemoglobin 8.9 g/dL (12.0-16.0) Hematocrit 27.6 % (37-47) Mean Corpuscular Volume 92.3 fL (80-100) Mean Corpuscular Hemoglobin 29.8 pg (25-34) Mean Corpuscular Hemoglobin Concent 32.2 g/dl (32-36) Platelet Count 327 K/uL (130-400) Mean Platelet Volume 8.5 fL (7.4-10.4) Neutrophils (%) (Auto) 82.7 % Lymphocytes (%) (Auto) 9.3 % Monocytes (%) (Auto) 5.0 % Eosinophils (%) (Auto) 2.2 % Basophils (%) (Auto) 0.1 % Neutrophils # (Auto) 17.69 K/uL (1.4-6.5) Lymphocytes # (Auto) 1.99 K/uL (1.2-3.4) Monocytes # (Auto) 1.08 K/uL (0.11-0.59) Eosinophils # (Auto) 0.46 K/uL (0-0.5) Basophils # (Auto) 0.03 K/uL (0-0.2) RDW Standard Deviation 56.7 fL (36.4-46.3) RDW Coefficient of Variation 16.8 % (11.5-14.5) Immature Granulocyte % (Auto) 0.7 % Immature Granulocyte # (Auto) 0.14 K/uL (0.00-0.02) Schistocytes 1+ Prothrombin Time 11.9 SECONDS (9.0-12.0) Prothromb Time International Ratio 1.1 (0.9-1.1) Estimated GFR () 81.2 Estimated GFR (Non- 70.0 BUN/Creatinine Ratio 21.7 (10-20) Calcium Level 9.8 mg/dl (8.5-10.1) Magnesium Level 1.8 mg/dl (1.8-2.4) Total Bilirubin 0.3 mg/dl (0.2-1) Direct Bilirubin 0.1 mg/dl (0-0.2) Aspartate Amino Transf (AST/SGOT) 11 U/L (15-37) Alanine Aminotransferase (ALT/SGPT) 9 U/L (12-78) Alkaline Phosphatase 109 U/L (45-117) Total Creatine Kinase 10 U/L (26-192) Creatine Kinase MB < 0.5 ng/ml (0.5-3.6) Creatine Kinase MB Ratio (0-3.0) Troponin I 0.018 ng/ml (0-0.045) Total Protein 6.2 gm/dl (6.4-8.2) Albumin 1.9 gm/dl (3.4-5.0) Bedside Lactic Acid Venous 1.22 mmol/L (0.90-1.70) Bedside Hemoglobin 9.2 g/dl (12.0-16.0) Bedside Hematocrit 27 % (37-47) Bedside Sodium 144 mEq/L (135-144) Bedside Potassium 3.1 mEq/L (3.3-5.0) Bedside Chloride 98 mEq/L (101-112) Bedside Total CO2 35 mEq/l (24-31) Anion Gap 15.0 mmol/L (16-25) Bedside Blood Urea Nitrogen 16 mg/dl (7-18) Bedside Creatinine 0.9 mg/dl (0.6-1.3) Bedside Glucose (other) 186 mg/dl (70-99) Bedside Ionized Calcium (Antonio) 1.37 mmol/l (1.12-1.32) Urine Color YELLOW Urine Appearance CLEAR (CLEAR) Urine pH 6.0 (4.5-7.5) Urine Specific [place] 1.014 (1.000-1.030) Urine Protein 1+ (NEG) Urine Glucose (UA) NEG (NEG) Urine Ketones NEG (NEG) Urine Occult Blood 2+ (NEG) Urine Nitrite NEG (NEG) Urine Bilirubin NEG (NEG) Urine Urobilinogen NEG (NEG) Urine Leukocyte Esterase TRACE (NEG) Urine WBC (Auto) 10-30 /hpf (0-5) Urine RBC (Auto) >30 /hpf (0-4) Urine Hyaline Casts (Auto) /lpf (0-5) Urine Epithelial Cells (Auto) >30 /lpf (0-5) Urine Bacteria (Auto) NEG (NEG) Urine Renal Epithelial Cells /lpf (0-5) Urine Pathogenic Casts /lpf (0) Laboratory results per my review. Medications Administered Medications (Trade) Dose Ordered Sig/Zaina Route Start Time Stop Time Status Last Admin Dose Admin Cefepime HCl 1000 mg/Dextrose 111 ml @ 200 mls/hr NOW STAT IV 12/22/17 16:25 12/22/17 16:58 DC 12/22/17 17:02 200 MLS/HR ECG Per My Interpretation Indication: altered mental status Rate (beats per minute): 73 Rhythm: sinus rhythm Findings: left axis deviation, other (T wave flattening lateral) ED Course ED COURSE: Vital signs were reviewed and showed hypertension. The patients medical record was reviewed The above diagnostic studies were performed and reviewed. ED treatments and interventions as stated above. 1421: The patient was evaluated in room C3. A complete history and physical examination was performed. 1441: I spoke with Regi Sellers. They sent the patient in because her WBC is increasing while on antibiotics. They also note that she is normally not confused. 1625: Cefepime HCl 1000 mg/Dextrose 111 ml @ 200 mls/hr IV. 1630: Upon reevaluation, the patient is stable. Based on the patients age, coexisting illnesses, exam and lab findings the decision to treat as an inpatient was made. The patient remained stable while under my care. The patient will be evaluated for further management. 1634: I reviewed the patient's case with Dr. Vaughn, [facility] hospitalist. He will evaluate the patient for further management. Medical Decision Differential diagnosis includes etiologies such as sepsis, UTI, pneumonia, metabolic, electrolyte abnormalities, cardiac sources, intracerebral event, toxicologic, neurologic, as well as others were entertained. Patient is an 87-year-old female who presents the ER from [facility] with a leukocytosis of 21,000. Chronic anemia at 9. Potassium is 3.1. Creatinine is unremarkable. Bilirubin along with LFTs and troponin was negative. INR was unremarkable. UA was negative. CT of the chest shows bilateral pleural effusions with pneumonia in the CT lower extremity shows small abscesses. Patient was updated at bedside although confused. She was covered with IV cefepime in combination with her 2 additional outpatient antibiotics. Internal medicine was updated and she was admitted for further workup of her decline in mentation, rising leukocytosis, pneumonia and postoperative abscesses in the right hip. Medication Reconcilliation Current Medication List: was personally reviewed by me Blood Pressure Screening Patient's blood pressure: Elevated blood pressure Blood pressure disposition: Elevated BP felt to be situational Consults Time Called: 1627 Consulting Physician: Dr. Vaughn, [facility] hospitalist Returned Call: 1634 I reviewed the patient's case with him. He will evaluate the patient for further management. Impression Primary Impression: Pneumonia Additional Impression: Postoperative abscess Scribe Attestation The scribe's documentation has been prepared under my direction and personally reviewed by me in its entirety. I confirm that the note above accurately reflects all work, treatment, procedures, and medical decision making performed by me. Departure Information Dispostion Being Evaluated By Hospitalist Referrals Molly Goldstein M.D. (PCP) Patient Instructions My [facility] Problem Qualifiers Primary Impression: Pneumonia Pneumonia type: due to unspecified organism Laterality: unspecified laterality Lung location: unspecified part of lung Qualified Codes: J18.9 - Pneumonia, unspecified organism Additional Impression: Postoperative abscess Encounter type: sequela Qualified Codes: T81.4XXS - Infection following a procedure, sequela
[2017-12-22 23:28] VITALS: BP 179/74; PULSE 69; TEMP 36.5; O2SAT 99
[2017-12-23] VITALS (8 sets, daily range): BP systolic 126–144; BP diastolic 61–77; PULSE 66–74; TEMP 36.6–37.1; O2SAT 94–99; BMI 25.8
[2017-12-23] MEDS ORDERED: CEFEPIME IV SCH (01:45)
[2017-12-23] MEDS ORDERED: DEXTROSE 5% IV SCH (01:45)
[2017-12-23] MEDS ORDERED: VANCOMYCIN CONSULT ACTIVE PRN (01:45)
[2017-12-23] MEDS ORDERED: CEFEPIME CONSULT ACTIVE PRN (04:00)
[2017-12-23] MEDS: CLINDAMYCIN IV 600 MG in DEXTROSE 5% 50ML 50 ML IV SCH ×3 (04:16→20:43)
[2017-12-23] MEDS: CEFEPIME IV 2,000 MG in SYRINGE 7.5 ML IV SCH (05:51)
[2017-12-23] MEDS: ALBUT/IPRATROP 3MG/0.5MG NEB 3 ML VIAL INH SCH ×4 (07:12→20:02)
[2017-12-23] MEDS ORDERED: POTASSIUM CHLORIDE 20 MEQ TABCR PO SCH (08:00)
[2017-12-23] MEDS ORDERED: FUROSEMIDE 20 MG TAB PO SCH (08:00)
--- NOTE | 2017-12-23 08:26 | Progress Note ---
Progress Note Date of Service Dec 23, 2017. Progress Note ID Consult Dictated #[id number] A/P: 1. RIght hip abscesses 2. Leukocytosis -Continue abx, follow cultures -Await wound care eval -Will follow, thank you
[2017-12-23] MEDS: INSULIN ASPART 100 UNITS/ML 3 ML PEN SC SCH ×4 (08:51→21:37)
[2017-12-23] MEDS: FUROSEMIDE INJ 20 MG in SYRINGE 0 ML IV SCH ×2 (08:56→17:38)
[2017-12-23] MEDS: CYANOCOBALAMIN 100 MCG TAB (VIT B-12) PO SCH (08:57)
[2017-12-23] MEDS: ASPIRIN 81 MG ECTAB PO SCH ×2 (08:57→17:38)
[2017-12-23] MEDS: CHOLECALCIFEROL 1000 INTER.UNIT TAB PO SCH (08:57)
[2017-12-23] MEDS: DOCUSATE SODIUM/SENNA 50/8.6MG TAB PO SCH ×2 (08:57→20:34)
[2017-12-23] MEDS: CLONIDINE HCL 0.1 MG TAB PO SCH ×2 (08:58→20:35)
[2017-12-23] MEDS: POTASSIUM CHLORIDE 20 MEQ TABCR PO SCH ×2 (08:58→20:35)
[2017-12-23] MEDS: AMLODIPINE BESYLATE 5 MG TAB PO SCH (08:59)
[2017-12-23] MEDS: INSULIN GLARGINE SOLOSTAR 100 UNITS/ML 3 ML PEN SC SCH ×2 (09:01→21:26)
[2017-12-23] MEDS: HEPARIN SOD 5000 UNIT/0.5 ML CARP SQ SCH ×2 (09:02→21:26)
[2017-12-23 09:06] LABS: HEMATOCRIT 28.4 % (37-47); HEMOGLOBIN 9.2 g/dL (12.0-16.0); MEAN CELL VOLUME 92.8 fL (80-100); MEAN CORPUSCULAR HEMOGLOBIN 30.1 pg (25-34); MEAN CORPUSCULAR HGB CONC 32.4 g/dl (32-36); MEAN PLATELET VOLUME 8.4 fL (7.4-10.4); PLATELET COUNT 317 K/uL (130-400); RED CELL DISTRIBUTION WIDTH CV 16.8 % (11.5-14.5); RED CELL DISTRIBUTION WIDTH SD 56.3 fL (36.4-46.3); WHITE BLOOD COUNT 24.33 K/uL (4.8-10.8)
--- NOTE | 2017-12-23 09:27 | INFECT. DISEASE CONSULTATION ---
DATE OF CONSULTATION: 12/23/2017 HISTORY OF PRESENT ILLNESS: This is an 87-year-old female who was admitted to the hospital from a local assisted facility secondary to change in mental status and leukocytosis. She reportedly had a white blood cell count of 25,000. This was repeated in the Emergency Room and is 21,000. She does have a history of a right hip abscess and a VAC in place. Her previous cultures grew Peptostreptococcus, Prevotella and Actinomyces. She was discharged from the hospital on vancomycin and ertapenem. She did have a CAT scan done in the Emergency Room yesterday, which showed no fluid collections measuring 2.4 x 3.1 x 3.8, cm 4.9 x2 x 6.7 cm and 4.8 x 4 cm. A wound care consultation is placed as well. On my examination, she is lethargic and unable to provide any history. She has not had any documented fever since admission to the hospital. Urine cultures, blood cultures and wound cultures were obtained and are pending. She was placed on clindamycin, cefepime and vancomycin. PAST MEDICAL HISTORY: Significant for anxiety, history of CVA, chronic kidney disease, dementia, depression, type 2 diabetes, hearing loss, hyperlipidemia, hypertension, osteoporosis, peripheral vascular disease, seizure disorder and vulvar neoplasm, which is not having any additional workup secondary to patient's request. PAST SURGICAL HISTORY: Significant for hip replacement, cataract surgery, tonsillectomy, adenoidectomy, appendectomy. FAMILY HISTORY: Noncontributory. SOCIAL HISTORY: Negative for tobacco use, alcohol use or drug use. She is currently living in an assisted facility. ALLERGIES: SHE HAS ALLERGIES TO PENICILLIN, PREDNISONE AND BENADRYL. MEDICATIONS: Include Lasix, Norvasc, aspirin, vitamin D, vitamin B, folic acid, potassium, insulin, cefepime, subQ heparin, clindamycin, vancomycin, Celexa, Zocor, DuoNebs, Tylenol. PHYSICAL EXAMINATION: VITAL SIGNS: She is afebrile, pulse 66, respiratory rate 18, blood pressure 179/74, oxygen saturation is 98% on 4 liters nasal cannula. GENERAL: She is lethargic and confused. She does not respond to verbal stimuli. HEENT: Mucous membranes are dry. HEART: Regular. LUNGS: Decreased bilaterally. ABDOMEN: Nondistended. There is no edema. VAC is in place over the right hip. LABORATORY STUDIES: CBC in the ER on the 10th reveals a white blood cell count of 21.3, hemoglobin 8.9, platelets 327. A sed rate is pending. Chemistry panel yesterday reveals a sodium of 144, potassium 3.1, chloride 98, bicarbonate 35, BUN 15, creatinine 0.9, glucose is 168. LFTs are within normal limits. UA had 10-30 WBCs with no bacteria. Blood cultures and wound cultures are pending. IMAGING: As above. ASSESSMENT AND PLAN: An infected right hip with new collections. She will continue on empiric antibiotics, pending the results of her wound and blood cultures. Thank you for this consultation. JESSICA
[2017-12-23 10:08] LABS: CALCIUM 9.8 mg/dl (8.5-10.1); CREATININE 0.71 mg/dl (0.60-1.20); POTASSIUM 3.2 mmol/L (3.5-5.1)
[2017-12-23] MEDS ORDERED: VANCOMYCIN IV 1,250 MG in SODIUM CHLORIDE 0.9% 250ML 250 ML IV ONE (10:45)
--- NOTE | 2017-12-23 10:49 | Pharmacy Progress Note ---
Pharmacy Abx Initial Consult Date of Service Dec 23, 2017. Pharmacy Dosing Scope Date of Consult: 12/23/17 Consultation requested by: Dr. Vaughn Pharmacy is consulted to initiate Vancomycin IV dosing therapy, order appropriate labs and adjust drug dose/frequency. Objective Height (Feet): 5 Height (Inches): 2.00 Weight (Kilograms): 64.100 Vital Signs (Past 12Hrs) Vital Signs Past 12 Hours Date Time Temp Pulse Resp B/P (MAP) Pulse Ox O2 Delivery O2 Flow Rate FiO2 12/23/17 08:17 36.8 68 16 144/69 (94) 99 4.0 12/23/17 07:13 66 18 98 Nasal Cannula 4.0 12/23/17 00:35 Nasal Cannula 4.0 12/22/17 23:28 36.5 69 16 179/74 (109) 99 Nasal Cannula 4.0 Lab Results (24Hrs) Laboratory Tests (24 Hours) Test 12/22/17 14:45 12/23/17 08:51 White Blood Count 21.39 K/uL (4.8-10.8) H 24.33 K/uL (4.8-10.8) H Red Blood Count 2.99 M/uL (4.2-5.4) L Hemoglobin 8.9 g/dL (12.0-16.0) L Hematocrit 27.6 % (37-47) L Mean Corpuscular Volume 92.3 fL (80-100) Mean Corpuscular Hemoglobin 29.8 pg (25-34) Mean Corpuscular Hemoglobin Concent 32.2 g/dl (32-36) Platelet Count 327 K/uL (130-400) Mean Platelet Volume 8.5 fL (7.4-10.4) Neutrophils (%) (Auto) 82.7 % Lymphocytes (%) (Auto) 9.3 % Monocytes (%) (Auto) 5.0 % Eosinophils (%) (Auto) 2.2 % Basophils (%) (Auto) 0.1 % Neutrophils # (Auto) 17.69 K/uL (1.4-6.5) H Lymphocytes # (Auto) 1.99 K/uL (1.2-3.4) Monocytes # (Auto) 1.08 K/uL (0.11-0.59) H Eosinophils # (Auto) 0.46 K/uL (0-0.5) Basophils # (Auto) 0.03 K/uL (0-0.2) Total Creatine Kinase 10 U/L (26-192) L C-Reactive Protein 11.90 mg/dl (0-0.29) H Erythrocyte Sedimentation Rate 29 mm/hr (0-21) H Micro Results Date/Time Source Procedure Growth Status 12/22/17 16:10 Blood Blood Culture Pending Received 12/22/17 14:45 Blood Blood Culture Pending Received 12/22/17 15:00 Urine,Catheterized Urine Culture Pending Received 12/22/17 18:54 Skin Back, Upper Gram Stain - Final Resulted 12/22/17 18:54 Skin Back, Upper Wound Culture Pending Resulted Risk Factors for Resistance * Resident in a shelter or extended-care facility * Hospitalization for 48 hours or more within the past 90 days * Antimicrobial use within the last 90 days Assessment & Plan Assessment 87 year old female brought to the ER from assisted nursing facility secondary to change in mental status and leukocytosis. Recent admission at end of November for R-hip abscess. Cultures during this stay grew Peptostreptococcus, Prevotella and actinomyces. Patient was discharged on vancomycin and ertapenem IV. New cultures pending. Plan Continue vancomycin, cefepime and clindamycin IV for R-hip abscess Vancomycin IV * Confirmed with [facility] that patient was receiving 1250 mg IV every 36 hours - last dose was 12/21 @ 1100. Last trough drawn at [facility] was 12.5 mcg/ mL. Of note, at time of last admission the patient was on 1250 mg IV every 24 hours with trough of 18.6 mcg/mL. * A random level was drawn this am and resulted at 11.5 mcg/mL. Given joint involvement and continued symptoms on appropriate therapy, I will aim for goal trough level 15 to 20 mcg/mL. * Will give 1250 mg IV now, then 1250 mg IV q30 hours * Trough level ordered for 12/25/17 Continue Cefepime 2g IV every 24 hours * target dose of 2g q12 reduced to q24 for CrCl 30-60 ml/min Clindamycin 600 mg IV q8 - not pharm consult Pharmacy will continue to follow and will adjust dose/frequency as necessary. Thank you.
--- NOTE | 2017-12-23 13:37 | Progress Note ---
Internal Med Progress Note Date of Service: Dec 23, 2017. Provider Documentation: SUBJECTIVE: Patient is awake and responsive to questions. Denies acute pain or shortness of breath OBJECTIVE: Exam: General- awake and responsive to questions, denies acute pain, deconditioned as she cannot sit up and needs assistance to turn in the bed Eyes- EOMI ENT- dentures Neck- midline trachea, no JVD Lungs- no respiratory distress ,decreased breath sounds at bases, no wheezing Heart- Regular rate, II/ systolic murmur at base and apex Abdomen- soft nontender no palpable masses, + bowel sounds Extremities- PICC RUE without surrounding erythema or drainage, right hip wound with wound vac Skin - pustular rash on back, multiple stage 2 sacral decubiti, ulcer left posterior heal stage 2, 10 mm ; ulcer overlying left medial MTP stage 2, 20 mm ASSESSMENT & PLAN: Patient with prolonged hospital course in November of 2017 and was discharged with IV antibiotics vancomycin and ertapenem with PICC line and wound vac for multi-organism right hip infection and presented to the ED for altered mental status -continue vancomycin and ertapenem and clindamycin as per infectious disease consult -patient has had chronically elevated WBC during November 2017 hospital stay which had been persistently above 15,00, however recent leukocytosis above 20, 000 -have requested orthopedics to reveal CT lower extremity imaging whether there is abscess that protracted antibiotics has not been able to reach as the CT impression 12/22/17 "Interval development of periostitis with heterotopic ossifications adjacent to the anterolateral proximal right femoral shaft along with ill-defined fluid collections adjacent to the proximal femoral shaft and posterior lateral to the femoral head, possibly reflecting abscess formations as above with areas of deep tissue air. 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 ALTERED MENTAL STATUS encephalopathy secondary to infection vs dementia patient has history of Keppra use, unclear as to whether this medication is still being continued as outpatient, will send Keppra level HYPOXIA / Pleural effusions / CHF -CT chest 12/22/17: Small to moderate sized bilateral pleural effusions are noted in addition to left greater than right bilateral lower lobe consolidation and multifocal lower lobe mucous plugging. Only a minimal portion of the left lower lobe is aerated. These findings suggest atelectasis with superimposed pneumonia -is already on multiple antibiotics -is given incentive spirometry but unlikely to use without assistance, nursing orders to assist patient with incentive spirometer -Supplemental O2 as needed. -November 2017, Ejection Fraction = 60-65%, grade I diastolic dysfunction: Titrate Lasix HYPOKALEMIA on BID potassium supplements to prevent electrolyte deficiencies from diuretics HYPERTENSION / Fusiform aneurysmal dilation of the ascending thoracic aorta redemonstrated 4.[address] scan Continue amlodipine and clonidine. DM TYPE 2 Hemoglobin A1c 7.6 on 11/17/17. Basal bolus insulin therapy with Lantus + NovoLog per protocol. VTE PROPHYLAXIS SQ heparin. RESUSCITATION STATUS DNR DISPOSITION: stay on Med-Surg Unit. resident of [facility]. Family and next of kin Tyree [phone] helps with medical decision making Vital Signs: Date Time Temp Pulse Resp B/P (MAP) Pulse Ox O2 Delivery O2 Flow Rate FiO2 12/23/17 11:45 74 18 97 Nasal Cannula 4.0 12/23/17 08:17 36.8 68 16 144/69 (94) 99 4.0 12/23/17 08:00 Nasal Cannula 4.0 12/23/17 07:13 66 18 98 Nasal Cannula 4.0 12/23/17 00:35 Nasal Cannula 4.0 12/22/17 23:28 36.5 69 16 179/74 (109) 99 Nasal Cannula 4.0 12/22/17 20:34 70 18 98 Nasal Cannula 4.0 12/22/17 20:00 100 Nasal Cannula 4.0 12/22/17 19:24 36.5 69 18 175/66 100 Nasal Cannula 4.0 12/22/17 17:02 71 20 174/69 99 Nasal Cannula 4.0 12/22/17 15:50 72 20 167/73 100 Nasal Cannula 12/22/17 14:33 37.2 74 163/69 97 Nasal Cannula 4.0 Lab Results: Results Past 24 Hours Test 12/22/17 14:45 12/22/17 14:51 12/22/17 14:55 12/22/17 15:00 Range/Units White Blood Count 21.39 4.8-10.8 K/uL Red Blood Count 2.99 4.2-5.4 M/uL Hemoglobin 8.9 12.0-16.0 g/dL Hematocrit 27.6 37-47 % Mean Corpuscular Volume 92.3 80-100 fL Mean Corpuscular Hemoglobin 29.8 25-34 pg Mean Corpuscular Hemoglobin Concent 32.2 32-36 g/dl Platelet Count 327 130-400 K/uL Mean Platelet Volume 8.5 7.4-10.4 fL Neutrophils (%) (Auto) 82.7 % Lymphocytes (%) (Auto) 9.3 % Monocytes (%) (Auto) 5.0 % Eosinophils (%) (Auto) 2.2 % Basophils (%) (Auto) 0.1 % Neutrophils # (Auto) 17.69 1.4-6.5 K/uL Lymphocytes # (Auto) 1.99 1.2-3.4 K/uL Monocytes # (Auto) 1.08 0.11-0.59 K/uL Eosinophils # (Auto) 0.46 0-0.5 K/uL Basophils # (Auto) 0.03 0-0.2 K/uL RDW Standard Deviation 56.7 36.4-46.3 fL RDW Coefficient of Variation 16.8 11.5-14.5 % Immature Granulocyte % (Auto) 0.7 % Immature Granulocyte # (Auto) 0.14 0.00-0.02 K/uL Schistocytes 1+ Prothrombin Time 11.9 9.0-12.0 SECONDS Prothromb Time International Ratio 1.1 0.9-1.1 Sodium Level 141 136-145 mmol/L Potassium Level 3.1 3.5-5.1 mmol/L Chloride Level 103 98-107 mmol/L Carbon Dioxide Level 34 21-32 mmol/L Anion Gap 4.0 15.0 16-25 mmol/L Blood Urea Nitrogen 16 7-18 mg/dl Creatinine 0.76 0.60-1.20 mg/dl Estimated GFR () 81.2 Estimated GFR (Non- 70.0 BUN/Creatinine Ratio 21.7 10-20 Random Glucose 182 70-99 mg/dl Calcium Level 9.8 8.5-10.1 mg/dl Magnesium Level 1.8 1.8-2.4 mg/dl Total Bilirubin 0.3 0.2-1 mg/dl Direct Bilirubin 0.1 0-0.2 mg/dl Aspartate Amino Transf (AST/SGOT) 11 15-37 U/L Alanine Aminotransferase (ALT/SGPT) 9 12-78 U/L Alkaline Phosphatase 109 45-117 U/L Total Creatine Kinase 10 26-192 U/L Creatine Kinase MB < 0.5 0.5-3.6 ng/ml Creatine Kinase MB Ratio 0-3.0 Troponin I 0.018 0-0.045 ng/ml Total Protein 6.2 6.4-8.2 gm/dl Albumin 1.9 3.4-5.0 gm/dl Bedside Lactic Acid Venous 1.22 0.90-1.70 mmol/L Bedside Hemoglobin 9.2 12.0-16.0 g/dl Bedside Hematocrit 27 37-47 % Bedside Sodium 144 135-144 mEq/L Bedside Potassium 3.1 3.3-5.0 mEq/L Bedside Chloride 98 101-112 mEq/L Bedside Total CO2 35 24-31 mEq/l Bedside Blood Urea Nitrogen 16 7-18 mg/dl Bedside Creatinine 0.9 0.6-1.3 mg/dl Bedside Glucose (other) 186 70-99 mg/dl Bedside Ionized Calcium (Antonio) 1.37 1.12-1.32 mmol/l Urine Color YELLOW Urine Appearance CLEAR CLEAR Urine pH 6.0 4.5-7.5 Urine Specific [place] 1.014 1.000-1.030 Urine Protein 1+ NEG Urine Glucose (UA) NEG NEG Urine Ketones NEG NEG Urine Occult Blood 2+ NEG Urine Nitrite NEG NEG Urine Bilirubin NEG NEG Urine Urobilinogen NEG NEG Urine Leukocyte Esterase TRACE NEG Urine WBC (Auto) 10-30 0-5 /hpf Urine RBC (Auto) >30 0-4 /hpf Urine Hyaline Casts (Auto) 0-5 /lpf Urine Epithelial Cells (Auto) >30 0-5 /lpf Urine Bacteria (Auto) NEG NEG Urine Renal Epithelial Cells 0-5 /lpf Urine Pathogenic Casts 0 /lpf Test 12/22/17 19:08 12/23/17 07:52 12/23/17 08:51 Range/Units Bedside Glucose 168 132 70-90 mg/dl White Blood Count 24.33 4.8-10.8 K/uL Red Blood Count 3.06 4.2-5.4 M/uL Hemoglobin 9.2 12.0-16.0 g/dL Hematocrit 28.4 37-47 % Mean Corpuscular Volume 92.8 80-100 fL Mean Corpuscular Hemoglobin 30.1 25-34 pg Mean Corpuscular Hemoglobin Concent 32.4 32-36 g/dl RDW Standard Deviation 56.3 36.4-46.3 fL RDW Coefficient of Variation 16.8 11.5-14.5 % Platelet Count 317 130-400 K/uL Mean Platelet Volume 8.4 7.4-10.4 fL Erythrocyte Sedimentation Rate 29 0-21 mm/hr Sodium Level 145 136-145 mmol/L Potassium Level 3.2 3.5-5.1 mmol/L Chloride Level 105 98-107 mmol/L Carbon Dioxide Level 34 21-32 mmol/L Anion Gap 6.0 3-11 mmol/L Blood Urea Nitrogen 16 7-18 mg/dl Creatinine 0.71 0.60-1.20 mg/dl Est Creatinine Clear Calc Drug Dose 48.2 ml/min Estimated GFR () 88.1 Estimated GFR (Non- 76.0 BUN/Creatinine Ratio 22.6 10-20 Random Glucose 109 70-99 mg/dl Calcium Level 9.8 8.5-10.1 mg/dl C-Reactive Protein 11.90 0-0.29 mg/dl Random Vancomycin Level 11.5 mcg/ml Microbiology Results 12/22/17 Blood Culture, Received Pending 12/22/17 Blood Culture, Received Pending 12/22/17 Urine Culture - Preliminary, Resulted NO GROWTH - LESS THAN 1,000 COLONIES/... 12/22/17 Gram Stain - Final, Resulted 12/22/17 Wound Culture - Preliminary, Resulted NO GROWTH TO DATE.
[2017-12-23 15:37] LABS: ALBUMIN 1.6 gm/dl (3.4-5.0); CALCIUM 9.6 mg/dl (8.5-10.1); CREATININE 0.81 mg/dl (0.60-1.20); POTASSIUM 3.1 mmol/L (3.5-5.1); TOTAL PROTEIN 5.8 gm/dl (6.4-8.2)
--- NOTE | 2017-12-23 16:16 | ORTHOPEDIC CONSULTATION ---
DATE OF CONSULTATION: 12/23/2017 HISTORY OF PRESENT ILLNESS: This is an 87-year-old female well known to the orthopedic service who was seen at request of Dr. Zarco and Dr. Vesta Vega. This is an 87-year-old female who has had a chronic ongoing treatment for infected right hip arthroplasty placed secondary to fracture. Last surgery was on 11/18/2017 with a femoral head and polyethylene exchange with extensive I&D and implantation of antibiotic laden Stimulan calcium sulfate antibiotic beads. She also had developed an ulceration on the lateral aspect of the hip, which had likely caused the infection to track into the implants initially. Most recently, the patient has been a resident of [facility], and has been treated with IV antibiotics including ertapenem and vancomycin via PICC line. Her right hip most recently grew Peptostreptococcus species, Prevotella species, in addition to Actinomyces israelii. She had been also treated with a wound VAC and had been stable. She started to have increasing confusion and her O2 saturations were reportedly low while at [facility]. Upon arrival to the Emergency Department of [facility], she had a white count of 25,000. She was then admitted to the hospitalist service. Orthopedics was consulted. There is no history from the patient due to chronic progressive dementia and change in mental status. PAST MEDICAL HISTORY: Infected right total hip arthroplasty, anxiety disorder, cerebrovascular disease, CKD stage III, dementia, depression, diabetes mellitus type 2, hearing loss, hyperlipidemia, hypertension, osteoporosis, peripheral vascular disease, seizure disorder, vulvar chronic malignancy. PAST SURGICAL HISTORY: 1. Total hip arthroplasty, right hip secondary to fracture. 2. Revision total hip arthroplasty with exchange of femoral head and polyethylene on 11/18/2017 with implantation of Stimulan calcium sulfate antibiotic laden beads and application of wound VAC. 3. History of cataract surgery. 4. T&A. 5. Status post appendectomy. 6. Status post cholecystectomy. ALLERGIES: AMOXICILLIN, PENICILLINS, RISEDRONATE, PREDNISONE, AND DIPHENHYDRAMINE. MEDICATIONS: Please note the extensive list provided in the medical record of particular interest, Invanz 1 gram IV daily and vancomycin 1.25 grams IV q. 36 hours. Most recently changed to cefepime once daily and now noted clindamycin. SOCIAL HISTORY: Denies tobacco, alcohol or drug use. She is . She lives in [facility]. She is retired. PHYSICAL EXAMINATION: GENERAL: This is an obtunded 87-year-old female who does arouse slightly to voice commands and during examination; however, is minimally responsive and minimally conversant; however, did appear to respond to questions appropriately with nods yes and no and did reply to questions regarding discomfort. EXTREMITIES: Examination of the right hip demonstrates wound VAC laterally. She has a stage II decubitus ulcer in the buttocks. She also has skin, which is warm, dry and intact over the hip. There is no evidence of induration, no obvious fluid collections, no erythema or streaking. There is no discomfort, irritation or irritability with range of motion of the right hip with flexion, extension, internal and external rotation. Overall, the right hip appears to be benign. Leg lengths are equal. Dorsalis pedis and posterior pulses are palpable bilaterally. IMAGING STUDIES: CT scan of the lower extremity. Chest CT and chest x-rays reviewed in addition to laboratories and notes from other providers. IMPRESSION: Right hip status post head and polyethylene exchange with implantation of antibiotic Stimulan beads, debridement of bone, muscle, fascia and skin in addition to debridement of pressure ulcer, lateral hip. Deep fluid collections with question of heterotopic ossifications, question of periostitis raised by radiologist. Recent mental status change and elevated white count. RECOMMENDATIONS: CT guided aspiration of fluid collections in the right hip for culture and sensitivity. The question raised of possible periostitis may actually be reactive tissue and calcification related to breakdown of the Stimulan calcium sulfate beads placed previously on 11/18/2017 rather than features suggestive of chronic ongoing abscess and progression of osteomyelitis. Due to the patient's poor medical state and condition, we would recommend CT guided aspiration over opened exploration at this point. Continue IV antibiotics, particularly in light of the change in lewis and modification of IV antibiotics selected as per medical service at this time. We will follow with you. Continue with wound VAC, right lateral hip, and supportive skin care for multiple decubitus ulcers. Thank you for the opportunity to consult in the care of this patient. JESSICA
[2017-12-23] MEDS: BOOST GLUCOSE CONTROL PO SCH (17:40)
[2017-12-23] MEDS: CITALOPRAM 20 MG TAB PO SCH (20:33)
[2017-12-23] MEDS: SIMVASTATIN 20 MG TAB PO SCH (20:34)
[2017-12-24] VITALS (7 sets, daily range): BP systolic 127–152; BP diastolic 52–69; PULSE 66–73; TEMP 36.6–36.9; O2SAT 95–98
[2017-12-24] MEDS: CLINDAMYCIN IV 600 MG in DEXTROSE 5% 50ML 50 ML IV SCH ×2 (03:56→12:02)
[2017-12-24] MEDS: CEFEPIME IV 2,000 MG in SYRINGE 7.5 ML IV SCH (05:47)
[2017-12-24] MEDS: ALBUT/IPRATROP 3MG/0.5MG NEB 3 ML VIAL INH SCH ×4 (07:00→19:05)
--- NOTE | 2017-12-24 07:53 | Clinical Documentation Query ---
CLINICAL DOCUMENTATION QUERY 87 yo female with prolonged hospital stay in November and discharged with IV antibiotics for right hip infection and AMS. The patient is documented as chronically ill appearing, disheveled, and malnourished. In your clinical opinion is this patient being managed for: ( x) Severe protein-calorie malnutrition ( ) Not Agree ( ) Other explanation of clinical findings (Please Explain) ( ) Unable to determine (Please Define) ( ) Need to Discuss The medical record reflects the following clinical findings, treatment, and risk factors. Clinical Indicators: As above Treatment: Boost glucose supplement, dietary consult Risk Factors: Age, infection, encephalopathy, pressure ulcers Please clarify and document your clinical opinion in the progress notes and discharge summary. Terms such as "probable", "suspected", "likely", "questionable", "possible", or "still to be ruled out" are acceptable. IF IN AGREEMENT, YOU MUST DOCUMENT ABOVE DIAGNOSTIC STATEMENT IN DAILY PROGRESS NOTES AND DISCHARGE SUMMARY. This document is not part of the patient's record. Thank You, Stephanie Woodruff RN [phone]
[2017-12-24] MEDS: FUROSEMIDE INJ 20 MG in SYRINGE 0 ML IV SCH (08:11)
[2017-12-24] MEDS: ASPIRIN 81 MG ECTAB PO SCH ×2 (08:11→18:05)
[2017-12-24] MEDS: DOCUSATE SODIUM/SENNA 50/8.6MG TAB PO SCH ×2 (08:11→21:36)
[2017-12-24] MEDS: AMLODIPINE BESYLATE 5 MG TAB PO SCH (08:11)
[2017-12-24] MEDS: POTASSIUM CHLORIDE 20 MEQ TABCR PO SCH ×2 (08:11→21:36)
[2017-12-24] MEDS: BOOST GLUCOSE CONTROL PO SCH ×3 (08:12→18:04)
[2017-12-24] MEDS: CYANOCOBALAMIN 100 MCG TAB (VIT B-12) PO SCH (08:12)
[2017-12-24] MEDS: CHOLECALCIFEROL 1000 INTER.UNIT TAB PO SCH (08:12)
[2017-12-24] MEDS: INSULIN GLARGINE SOLOSTAR 100 UNITS/ML 3 ML PEN SC SCH ×2 (08:13→21:38)
[2017-12-24] MEDS: INSULIN ASPART 100 UNITS/ML 3 ML PEN SC SCH ×4 (08:13→21:39)
[2017-12-24] MEDS: HEPARIN SOD 5000 UNIT/0.5 ML CARP SQ SCH ×2 (08:14→21:40)
[2017-12-24] MEDS: CLONIDINE HCL 0.1 MG TAB PO SCH ×2 (08:21→21:36)
[2017-12-24] MEDS ORDERED: POTASSIUM CHLORIDE 20 MEQ TABCR PO ONE (09:30)
[2017-12-24] MEDS ORDERED: D5W AND 1/2NSS 1,000 ML IV SCH (09:30)
--- NOTE | 2017-12-24 10:43 | Progress Note ---
Subjective Date of Service: Dec 24, 2017. Subjective Pt evaluation today including: conversation w/ patient, physical exam, chart review, lab review more awake today, denies pain, no f/c. tolerating abx. wbc increased, cultures negative. for vac change today. followed by ortho, no plans for OR. all remaining ros reviewed and are negative. Problem List Medical Problems: (1) Altered mental status Status: Acute (2) Bradycardia Status: Acute (3) Bronchitis Status: Acute (4) Cellulitis of right hip Status: Acute (5) Expressive aphasia Status: Acute (6) Fall Status: Acute (7) Pneumonia Status: Acute (8) Possible urinary tract infection Status: Acute (9) Postoperative abscess Status: Acute (10) Receptive aphasia Status: Acute (11) Skin tear of right hand without complication Status: Acute Objective Vital Signs Date Time Temp Pulse Resp B/P (MAP) Pulse Ox O2 Delivery O2 Flow Rate FiO2 12/24/17 08:17 36.8 69 16 127/52 (77) 97 Nasal Cannula 2.0 12/24/17 07:05 66 16 97 Nasal Cannula 2.0 12/24/17 00:35 Nasal Cannula 4.0 12/23/17 22:36 36.6 70 16 129/77 (94) 94 Nasal Cannula 2.0 12/23/17 20:30 Nasal Cannula 4.0 12/23/17 20:30 72 126/61 (82) 12/23/17 19:00 72 18 97 Nasal Cannula 3.0 12/23/17 16:12 37.1 66 16 137/65 (89) 98 Room Air 12/23/17 16:00 Nasal Cannula 4.0 12/23/17 14:32 69 18 99 Nasal Cannula 3.0 12/23/17 11:45 74 18 97 Nasal Cannula 4.0 Physical Exam General Appearance: WD/WN, no apparent distress Eyes: normal inspection, PERRL Neck: supple Respiratory/Chest: lungs clear, normal breath sounds, no respiratory distress, + decreased breath sounds Cardiovascular: regular rate, rhythm, no edema Abdomen: soft Extremities: no pedal edema Neurologic/Psychiatric: alert Skin: normal color Laboratory Results Item Value Date Time Gram Stain - Final Resulted 12/22/17 1854 Skin Back, Upper Blood Culture - Preliminary Resulted 12/22/17 1610 Blood NO GROWTH TO DATE. Blood Culture - Preliminary Resulted 12/22/17 1445 Blood NO GROWTH TO DATE. Last 24 Hours Test 12/23/17 11:27 12/23/17 14:26 12/23/17 14:49 12/23/17 16:50 Bedside Glucose 123 mg/dl 96 mg/dl Sodium Level 146 mmol/L Potassium Level 3.1 mmol/L Chloride Level 104 mmol/L Carbon Dioxide Level 37 mmol/L Anion Gap 5.0 mmol/L Blood Urea Nitrogen 17 mg/dl Creatinine 0.81 mg/dl Est Creatinine Clear Calc Drug Dose 42.2 ml/min Estimated GFR () 75.2 Estimated GFR (Non- 64.8 BUN/Creatinine Ratio 21.0 Random Glucose 110 mg/dl Calcium Level 9.6 mg/dl Total Bilirubin 0.3 mg/dl Aspartate Amino Transf (AST/SGOT) 9 U/L Alanine Aminotransferase (ALT/SGPT) 8 U/L Alkaline Phosphatase 101 U/L Total Protein 5.8 gm/dl Albumin 1.6 gm/dl Globulin 4.2 gm/dl Albumin/Globulin Ratio 0.4 Test 12/23/17 19:51 12/24/17 07:59 Bedside Glucose 172 mg/dl 134 mg/dl Assessment and Plan (1) Abscess of right hip Assessment & Plan: continue abx, follow wound culture.
--- NOTE | 2017-12-24 11:57 | Orthopedic Progress Note ---
Orthopedic Progress Note Date of Service Dec 24, 2017. Subjective Reports: feeling well, chest pain Additional Notes: PATIENT SLEEPING ON ARRIVAL. RESPIRATORY IN THE ROOM AT THE TIME. Objective calves soft nontender, N/V intact, hip located, capillary refill less than 2 sec., dressing C/D/I, toes mobile Date Time Temp Pulse Resp B/P (MAP) Pulse Ox O2 Delivery O2 Flow Rate FiO2 12/24/17 11:08 69 16 97 Nasal Cannula 2.0 12/24/17 09:00 Nasal Cannula 4.0 12/24/17 08:17 36.8 69 16 127/52 (77) 97 Nasal Cannula 2.0 12/24/17 07:05 66 16 97 Nasal Cannula 2.0 12/24/17 00:35 Nasal Cannula 4.0 12/23/17 22:36 36.6 70 16 129/77 (94) 94 Nasal Cannula 2.0 12/23/17 20:30 Nasal Cannula 4.0 12/23/17 20:30 72 126/61 (82) 12/23/17 19:00 72 18 97 Nasal Cannula 3.0 12/23/17 16:12 37.1 66 16 137/65 (89) 98 Room Air 12/23/17 16:00 Nasal Cannula 4.0 12/23/17 14:32 69 18 99 Nasal Cannula 3.0 Assessment & Plan Assessment: MENTAL STATUS CHANGE HISTORY OF SEPTIC RIGHT AMILCAR CHRONIC WOUND RIGHT HIP WITH WOUND VAC. Plan: DR. VARNER RECOMMENDS CT GUIDED ASPIRATION OF THE RIGHT HIP. CONTINUE WOUND VAC/WOUND CARE. PAIN MANAGEMENT
--- NOTE | 2017-12-24 13:09 | Clinical Documentation Query ---
CLINICAL DOCUMENTATION QUERY 87 yo female admitted for right hip infection. Wound RN documented the patient has bilateral sacral Pressure Ulcers, Stage 3; left heel Pressure Ulcer, unstageable; and left amputation site Pressure Ulcer, Unstageable. In your clinical opinion is this patient being managed for: (x ) Pressure ulcer of sacral region, stage 3 ( ) Not Agree ( ) Other explanation of clinical findings (Please Explain) ( ) Unable to determine (Please Define) ( ) Need to Discuss The medical record reflects the following clinical findings, treatment, and risk factors. Clinical Indicators: As above Treatment: Wound consult, dressings Risk Factors: Age, bed ridden, right hip infection Please clarify and document your clinical opinion in the progress notes and discharge summary. Terms such as "probable", "suspected", "likely", "questionable", "possible", or "still to be ruled out" are acceptable. IF IN AGREEMENT, YOU MUST DOCUMENT ABOVE DIAGNOSTIC STATEMENT IN DAILY PROGRESS NOTES AND DISCHARGE SUMMARY. This document is not part of the patient's record. Thank You, Stephanie Woodruff RN [phone]
[2017-12-24] MEDS: VANCOMYCIN IV 1,250 MG in SODIUM CHLORIDE 0.9% 250ML 250 ML IV SCH (15:46)
[2017-12-24 17:29] LABS: BASO % 0.2 %; BASO ABS # 0.05 K/uL (0-0.2); EOS % 3.8 %; EOS ABS # 0.77 K/uL (0-0.5); HEMATOCRIT 27.6 % (37-47); HEMOGLOBIN 8.7 g/dL (12.0-16.0); IG# 0.17 K/uL (0.00-0.02); LYMPH % 11.6 %; LYMPH ABS # 2.37 K/uL (1.2-3.4); MEAN CELL VOLUME 93.6 fL (80-100); MEAN CORPUSCULAR HEMOGLOBIN 29.5 pg (25-34); MEAN PLATELET VOLUME 8.8 fL (7.4-10.4); MONO % 4.3 %; MONO ABS # 0.88 K/uL (0.11-0.59); NEUT % 79.3 %; NEUT ABS # 16.24 K/uL (1.4-6.5); PLATELET COUNT 333 K/uL (130-400); RED CELL DISTRIBUTION WIDTH CV 16.8 % (11.5-14.5); RED CELL DISTRIBUTION WIDTH SD 57.5 fL (36.4-46.3); WHITE BLOOD COUNT 20.48 K/uL (4.8-10.8)
[2017-12-24 18:01] LABS: ALBUMIN 1.7 gm/dl (3.4-5.0); CALCIUM 9.4 mg/dl (8.5-10.1); CREATININE 0.87 mg/dl (0.60-1.20); POTASSIUM 3.9 mmol/L (3.5-5.1); TOTAL PROTEIN 6.2 gm/dl (6.4-8.2)
--- NOTE | 2017-12-24 18:24 | Progress Note ---
Internal Med Progress Note Date of Service: Dec 24, 2017. Provider Documentation: SUBJECTIVE: Patient is awake and responsive to questions. Denies acute pain or shortness of breath OBJECTIVE: Exam: General- awake and responsive to questions, denies acute pain Eyes- EOMI Neck- midline trachea, no JVD Lungs- no respiratory distress ,decreased breath sounds at bases, no wheezing Heart- Regular rate, II/ systolic murmur at base and apex Abdomen- soft nontender no palpable masses, + bowel sounds Extremities- PICC RUE without surrounding erythema or drainage, right hip wound with wound vac Skin - pustular rash on back, multiple stage 2 sacral decubiti, ulcer left posterior heal stage 2, 10 mm ; ulcer overlying left medial MTP stage 2, 20 mm ASSESSMENT & PLAN: Patient with prolonged hospital course in November of 2017 and was discharged with IV antibiotics vancomycin and ertapenem with PICC line and wound vac for multi-organism right hip infection and presented to the ED for altered mental status -on admission patient has been on vancomycin and ertapenem and clindamycin as per infectious disease consult -patient has had chronically elevated WBC during November 2017 hospital stay which had been persistently above 15,000, however recent leukocytosis above 20, 000 -CT impression 12/22/17 Interval development of periostitis with heterotopic ossifications adjacent to the anterolateral proximal right femoral shaft along with ill-defined fluid collections adjacent to the proximal femoral shaft and posterior lateral to the femoral head, possibly reflecting abscess formations as above with areas of deep tissue air. Moderate subcutaneous edema with skin thickening about the right thigh suggests cellulitis -Orthopedics recommends Radiology to investigate whether patient benefits from CT scan guided IR drainage of these areas, have discussed with Radiologist Dr. Tayo Arias whether this is feasible -wound care consult also involved in the care, wound vac discontinued today, follow up radiology and wound care recommendations SURFACE WOUND CULTURE Final 12/24/17-1410 Organism 1 AMAN ALBICANS QUANITY FEW SENS NO SENSITIVITY TO FOLLOW Organism 2 COAG NEG STAPHYLOCOCCUS QUANITY RARE SENS NO SENSITIVITY TO FOLLOW Admission blood cultures negative to date Hospitalist assessment at this time does not believe that patient need to be clindamycin at this time and has stopped clindamycin. 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 Leukocytosis from malignancy should be considered once infectious processes worked up or ruled out ALTERED MENTAL STATUS encephalopathy secondary to infection vs dementia patient has history of Keppra use, unclear as to whether this medication is still being continued as outpatient, Keppra level sent and pending results as this a send out lab for now patient has not been seen to have seizures and will hold off Keppra for now - perhaps Keppra could be sedative and caused mentation problems prior to admission but this is just conjecture HYPOXIA / Pleural effusions / CHF -CT chest 12/22/17: Small to moderate sized bilateral pleural effusions are noted in addition to left greater than right bilateral lower lobe consolidation and multifocal lower lobe mucous plugging. Only a minimal portion of the left lower lobe is aerated. These findings suggest atelectasis with superimposed pneumonia -is already on multiple antibiotics -is given incentive spirometry but unlikely to use without assistance, nursing orders to assist patient with incentive spirometer -Supplemental O2 as needed. -November 2017, Ejection Fraction = 60-65%, grade I diastolic dysfunction -patient was on IV lasix BID to reduce fluid overload in lung initially but has needed IV fluids as more hypernatremic, IV fluids stopped today and switch to oral lasix HYPOKALEMIA from diuretics on BID potassium supplements to prevent electrolyte deficiencies and additional oral potassium given from diuretics decrease standing potassium when on reduced lasix starting from now Protein-Calorie Malnutrition encouraged nursing staff to help patient with feeding HYPERTENSION / Fusiform aneurysmal dilation of the ascending thoracic aorta redemonstrated 4.[address] scan Continue amlodipine and clonidine. DM TYPE 2 Hemoglobin A1c 7.6 on 11/17/17. Basal bolus insulin therapy with Lantus + NovoLog per protocol. VTE PROPHYLAXIS SQ heparin. RESUSCITATION STATUS DNR DISPOSITION: stay on Med-Surg Unit. resident of [facility]. Family and next of kin Tyree [phone] helps with medical decision making Vital Signs: Date Time Temp Pulse Resp B/P (MAP) Pulse Ox O2 Delivery O2 Flow Rate FiO2 12/24/17 16:29 Nasal Cannula 4.0 12/24/17 15:57 36.6 69 18 146/69 (94) 98 Nasal Cannula 2.0 12/24/17 15:17 72 16 95 Nasal Cannula 2.0 12/24/17 11:08 69 16 97 Nasal Cannula 2.0 12/24/17 09:00 Nasal Cannula 4.0 12/24/17 08:17 36.8 69 16 127/52 (77) 97 Nasal Cannula 2.0 12/24/17 07:05 66 16 97 Nasal Cannula 2.0 12/24/17 00:35 Nasal Cannula 4.0 12/23/17 22:36 36.6 70 16 129/77 (94) 94 Nasal Cannula 2.0 12/23/17 20:30 Nasal Cannula 4.0 12/23/17 20:30 72 126/61 (82) 12/23/17 19:00 72 18 97 Nasal Cannula 3.0 Lab Results: Results Past 24 Hours Test 12/23/17 19:51 12/24/17 07:59 12/24/17 11:41 12/24/17 16:33 Range/Units Bedside Glucose 172 134 268 271 70-90 mg/dl Test 12/24/17 17:22 Range/Units White Blood Count 20.48 4.8-10.8 K/uL Red Blood Count 2.95 4.2-5.4 M/uL Hemoglobin 8.7 12.0-16.0 g/dL Hematocrit 27.6 37-47 % Mean Corpuscular Volume 93.6 80-100 fL Mean Corpuscular Hemoglobin 29.5 25-34 pg Mean Corpuscular Hemoglobin Concent 31.5 32-36 g/dl Platelet Count 333 130-400 K/uL Mean Platelet Volume 8.8 7.4-10.4 fL Neutrophils (%) (Auto) 79.3 % Lymphocytes (%) (Auto) 11.6 % Monocytes (%) (Auto) 4.3 % Eosinophils (%) (Auto) 3.8 % Basophils (%) (Auto) 0.2 % Neutrophils # (Auto) 16.24 1.4-6.5 K/uL Lymphocytes # (Auto) 2.37 1.2-3.4 K/uL Monocytes # (Auto) 0.88 0.11-0.59 K/uL Eosinophils # (Auto) 0.77 0-0.5 K/uL Basophils # (Auto) 0.05 0-0.2 K/uL RDW Standard Deviation 57.5 36.4-46.3 fL RDW Coefficient of Variation 16.8 11.5-14.5 % Immature Granulocyte % (Auto) 0.8 % Immature Granulocyte # (Auto) 0.17 0.00-0.02 K/uL Schistocytes 1+ Sodium Level 140 136-145 mmol/L Potassium Level 3.9 3.5-5.1 mmol/L Chloride Level 103 98-107 mmol/L Carbon Dioxide Level 32 21-32 mmol/L Anion Gap 5.0 3-11 mmol/L Blood Urea Nitrogen 23 7-18 mg/dl Creatinine 0.87 0.60-1.20 mg/dl Est Creatinine Clear Calc Drug Dose 39.3 ml/min Estimated GFR () 68.9 Estimated GFR (Non- 59.5 BUN/Creatinine Ratio 26.9 10-20 Random Glucose 252 70-99 mg/dl Calcium Level 9.4 8.5-10.1 mg/dl Total Bilirubin 0.3 0.2-1 mg/dl Aspartate Amino Transf (AST/SGOT) 14 15-37 U/L Alanine Aminotransferase (ALT/SGPT) 10 12-78 U/L Alkaline Phosphatase 104 45-117 U/L Total Protein 6.2 6.4-8.2 gm/dl Albumin 1.7 3.4-5.0 gm/dl Globulin 4.5 2.5-4.0 gm/dl Albumin/Globulin Ratio 0.4 0.9-2
[2017-12-24 18:33] LABS: MEAN CORPUSCULAR HGB CONC 31.5 g/dl (32-36)
[2017-12-24] MEDS: CITALOPRAM 20 MG TAB PO SCH (21:36)
[2017-12-24] MEDS: SIMVASTATIN 20 MG TAB PO SCH (21:36)
[2017-12-25] VITALS (8 sets, daily range): BP systolic 146–173; BP diastolic 63–71; PULSE 66–80; TEMP 36.7–37.1; O2SAT 94–99
[2017-12-25] MEDS ORDERED: INSULIN ASPART 100 UNITS/ML 3 ML PEN SC ONE (01:00)
[2017-12-25 05:49] LABS: HEMATOCRIT 27.3 % (37-47); HEMOGLOBIN 8.5 g/dL (12.0-16.0); MEAN CELL VOLUME 93.5 fL (80-100); MEAN CORPUSCULAR HEMOGLOBIN 29.1 pg (25-34); MEAN CORPUSCULAR HGB CONC 31.1 g/dl (32-36); MEAN PLATELET VOLUME 8.8 fL (7.4-10.4); PLATELET COUNT 332 K/uL (130-400); RED CELL DISTRIBUTION WIDTH CV 16.7 % (11.5-14.5); WHITE BLOOD COUNT 25.09 K/uL (4.8-10.8)
[2017-12-25] MEDS: CEFEPIME IV 2,000 MG in SYRINGE 7.5 ML IV SCH (05:59)
[2017-12-25 06:21] LABS: CREATININE 0.76 mg/dl (0.60-1.20)
[2017-12-25 06:27] LABS: BASO % 0.2 %; BASO ABS # 0.05 K/uL (0-0.2); EOS % 4.1 %; EOS ABS # 1.02 K/uL (0-0.5); IG# 0.19 K/uL (0.00-0.02); LYMPH % 9.8 %; LYMPH ABS # 2.46 K/uL (1.2-3.4); MONO % 3.9 %; MONO ABS # 0.98 K/uL (0.11-0.59); NEUT % 81.2 %; NEUT ABS # 20.39 K/uL (1.4-6.5)
[2017-12-25] MEDS: ALBUT/IPRATROP 3MG/0.5MG NEB 3 ML VIAL INH SCH ×4 (07:15→19:45)
[2017-12-25] MEDS: BOOST GLUCOSE CONTROL PO SCH ×3 (08:07→16:38)
[2017-12-25] MEDS: AMLODIPINE BESYLATE 5 MG TAB PO SCH (08:07)
[2017-12-25] MEDS: CYANOCOBALAMIN 100 MCG TAB (VIT B-12) PO SCH (08:07)
[2017-12-25] MEDS: CHOLECALCIFEROL 1000 INTER.UNIT TAB PO SCH (08:07)
[2017-12-25] MEDS: FUROSEMIDE 20 MG TAB PO SCH (08:08)
[2017-12-25] MEDS: CLONIDINE HCL 0.1 MG TAB PO SCH ×2 (08:08→20:47)
[2017-12-25] MEDS: POTASSIUM CHLORIDE 20 MEQ TABCR PO SCH ×2 (08:08→20:47)
[2017-12-25] MEDS: DOCUSATE SODIUM/SENNA 50/8.6MG TAB PO SCH ×2 (08:08→20:46)
[2017-12-25] MEDS: ASPIRIN 81 MG ECTAB PO SCH ×2 (08:38→16:38)
[2017-12-25] MEDS: INSULIN ASPART 100 UNITS/ML 3 ML PEN SC SCH ×4 (08:39→20:52)
[2017-12-25] MEDS: HEPARIN SOD 5000 UNIT/0.5 ML CARP SQ SCH ×2 (08:40→20:53)
[2017-12-25] MEDS: INSULIN GLARGINE SOLOSTAR 100 UNITS/ML 3 ML PEN SC SCH ×2 (08:40→20:53)
[2017-12-25] MEDS ORDERED: NURSING DECISION MEDICATION ORDER SCH ×3 (09:00→19:45)
[2017-12-25] MEDS ORDERED: MICONAZOLE NITRATE POWDER 43 GM EXT PRN (09:45)
--- NOTE | 2017-12-25 13:10 | Wound Consultation: Inpatient ---
Wound Consultation Date of Consultation: Dec 25, 2017. Attending Physician: Naty Carrillo M.D. Reason for Consultation: Postoperative wound right hip and ulceration left foot History of Present Illness Patient was admitted to [facility] 3 days ago for evaluation of altered mental status. Patient currently is lying in bed in no apparent distress and cooperative throughout the examination. Patient denies any increased pain in the right hip or left foot region. Patient is a difficult historian and unable to provide any answers regarding this new ulceration to the left foot region. Patient was last seen during a prior hospitalization approximately 5 weeks ago. Patient has not been seen yet in follow-up in the outpatient clinic. No other systemic complaints are noted at this time. Family History FH: lung cancer BROTHER FH: stroke FATHER Oral cancer MOTHER Social History Smoking Status: Never Smoker Alcohol Use: none Drug Use: none Marital Status: Housing Status: [facility] Occupation Status: retired Allergies Coded Allergies: Amoxicillin (Verified Allergy, Severe, CVA SYMPTOMS, 12/22/17) Penicillins (Unverified Allergy, Unknown, POSS CX OF CVA, 12/22/17) Risedronate (Unverified Allergy, Unknown, UNKNOWN, 12/22/17) Prednisone (Verified Adverse Reaction, Intermediate, HIGH BS, 12/22/17) Diphenhydramine (Verified Adverse Reaction, Mild, N&V, 12/22/17) Home Medications Scheduled Amino Acids (Argiment), 1 PKT PO BID Amlodipine (Norvasc), 10 MG PO DAILY Aspirin (Aspirin Ec), 81 MG PO BIDM Calcium Carbonate-Cholecalcife (Caltrate 600+D), 1 TAB PO BID Cholecalciferol (Vitamin D-3), 1,000 UNITS PO DAILY Citalopram Hydrobromide (Citalopram Hydrobromide), 20 MG PO HS Clonidine Hcl (Catapres), 0.1 MG PO BID Collagenase (Santyl), 1 APPLN TOP UD Cyanocobalamin (Vitamin B-12), 100 MCG PO DAILY Ertapenem Sodium (Invanz), 1 GM IV DAILY Folic Acid (Folvite), 1 MG PO DAILY Furosemide (Lasix), 20 MG PO DAILY Home O2 Therapy (Oxygen), 2 LITERS NA CONTINOUS Insulin Glargine (Lantus), 6 UNITS SC BID Ipratropium-Albuterol (Duoneb), 1 TREATMENT INH QID Probiotic Product (Probiotic), 1 TAB PO DAILY Sennosides-Docusate Sodium (Senna S), 2 TABS PO BID Simvastatin (Zocor), 20 MG PO QPM Vancomycin HCl in Sodium Chlor (VANCOMYCIN in NSS), 1.25 GM IV Q36H Zinc Oxide (Topical) (Desitin Maximum Strength), 1 APPLN TOP UD Scheduled PRN Acetaminophen Tab (Tylenol), 650 MG PO Q4H PRN for Pain Acetaminophen Tab (Tylenol), 650 MG PO Q4H PRN for Fever Zolpidem Tartrate (Ambien), 5 MG PO HS PRN for insomia Inpatient Medications Current Inpatient Medications Medications (Trade) Dose Ordered Sig/Zaina Route Start Time Stop Time Status Last Admin Dose Admin Ioversol (Optiray 320) 100 ml UD PRN IV 12/22/17 14:45 12/26/17 14:44 Heparin Sodium (Porcine) (Heparin Sq 5000 Unit/0.5ml) 5,000 unit Q12 SQ 12/22/17 21:00 01/21/18 20:59 12/25/17 08:40 5,000 UNIT Acetaminophen (Tylenol Tab) 650 mg Q4H PRN PO 12/22/17 18:45 01/21/18 18:44 Amlodipine Besylate (Norvasc Tab) 10 mg DAILY PO 12/23/17 08:00 01/22/18 08:59 12/25/17 08:07 10 MG Aspirin (Ecotrin Tab) 81 mg BIDM PO 12/23/17 08:00 01/22/18 07:59 12/25/17 08:38 81 MG Cholecalciferol (Vitamin D Tab) 1,000 inter.unit DAILY PO 12/23/17 08:00 01/22/18 08:59 12/25/17 08:07 1,000 INTER.UNIT Citalopram Hydrobromide (celeXA TAB) 20 mg HS PO 12/22/17 21:00 01/21/18 20:59 12/24/17 21:36 20 MG Clonidine HCl (Catapres Tab) 0.1 mg BID PO 12/22/17 20:00 01/21/18 20:59 12/25/17 08:08 0.1 MG Cyanocobalamin (Vitamin B-12 Tab) 100 mcg DAILY PO 12/23/17 08:00 01/22/18 08:59 12/25/17 08:07 100 MCG Folic Acid (Folvite Tab) 1 mg DAILY PO 12/23/17 08:00 01/22/18 08:59 12/25/17 08:08 1 MG Albuterol/ Ipratropium (Duoneb) 3 ml QIDR INH 12/22/17 20:00 01/21/18 19:59 12/25/17 11:24 3 ML Senna/Docusate Sodium (Senokot S Tab) 2 tab BID PO 12/22/17 20:00 01/21/18 20:59 12/25/17 08:08 2 TAB Simvastatin (Zocor Tab) 20 mg QPM PO 12/22/17 21:00 01/21/18 20:59 12/24/17 21:36 20 MG Glucose (Glucose 40% Gel) 15-30 GRAMS 15 GRAMS... UD PRN PO 12/22/17 20:15 01/21/18 20:14 Glucose (Glucose Chew Tab) 4-8 Tablets 4 Tabl... UD PRN PO 12/22/17 20:15 01/21/18 20:14 Dextrose (Dextrose 50% 50ML Syringe) 25-50ML OF 50% DW IV FOR... UD PRN IV 12/22/17 20:15 01/21/18 20:14 Glucagon (Glucagon Inj) 1 mg UD PRN SQ 12/22/17 20:15 01/21/18 20:14 Miscellaneous Information (Consult) 1 ea UD PRN N/A 12/23/17 01:45 01/22/18 01:44 Insulin Aspart (novoLOG ASPART) SLIDING SCALE G... ACHS SC 12/23/17 06:30 01/22/18 06:29 12/25/17 12:39 7 UNITS Potassium Chloride (Klor-Con Tab) 20 meq BID PO 12/23/17 08:00 01/22/18 07:59 12/25/17 08:08 20 MEQ Cefepime HCl 2000 mg/Syringe 20 ml @ 5 mls/min Q24H IV 12/23/17 06:00 01/02/18 05:59 12/25/17 05:59 5 MLS/MIN Cefepime HCl (Consult) 1 ea UD PRN N/A 12/23/17 04:00 01/22/18 03:59 Heparin Sodium (Porcine) (Heparin 10 Unit/ ml 5 ml Flush) 5 ml PRN PRN FLUSH 12/23/17 05:15 01/22/18 05:14 12/25/17 06:01 5 ML Vancomycin HCl 1250 mg/Sodium Chloride 275 ml @ 125 mls/hr Q30H IV 12/24/17 16:00 01/03/18 15:59 12/24/17 15:46 125 MLS/HR Enteral Nutritional Formula (Boost Glucose Control) 1 can TIDM PO 12/23/17 17:00 01/22/18 16:59 12/25/17 11:50 1 CAN Furosemide (Lasix Tab) 20 mg QAM PO 12/25/17 08:00 01/24/18 07:59 12/25/17 08:08 20 MG Insulin Glargine (Lantus Solostar Pen) 12 units BID SC 12/24/17 21:00 01/21/18 20:59 12/25/17 08:40 12 UNITS Miconazole Nitrate (Desenex Powder) 1 appln UD PRN EXT 12/25/17 09:45 01/24/18 09:44 Physical Exam Date Time Temp Pulse Resp B/P (MAP) Pulse Ox O2 Delivery O2 Flow Rate FiO2 12/25/17 11:24 72 16 94 Nasal Cannula 2.0 12/25/17 09:00 Nasal Cannula 2.0 12/25/17 07:42 36.9 72 16 173/63 (99) 99 Room Air 12/25/17 07:18 70 16 96 Nasal Cannula 2.0 12/25/17 00:00 98 Nasal Cannula 2.0 12/24/17 22:07 36.9 73 18 152/69 (96) 98 Nasal Cannula 3.0 12/24/17 19:05 71 16 98 Nasal Cannula 2.0 12/24/17 16:29 Nasal Cannula 4.0 12/24/17 15:57 36.6 69 18 146/69 (94) 98 Nasal Cannula 2.0 12/24/17 15:17 72 16 95 Nasal Cannula 2.0 General: The patient is lying in hospital bed in no distress. Alert, cooperative. HEENT: Pupils equal and reactive to light. Sclera clear, EOM intact. Neck: Supple, No JVD noted Chest: CTA in all segundo. No deformity Heart: RRR without murmurs, S3, S4, thrills, rubs or heaves Extremities: A large postoperative wound is noted in the lateral aspect of the right hip measuring 5.5 x 5.7 x 5.5 cm. There is tunneling present at 12:00 5 cm and 6:00 3.5 cm. Granulation is tissue is noted on the sidewalls. There is no central slough active drainage or odor noted. No significant periwound erythema is noted. No pain to palpation or fluctuance present. There is a new ulceration noted to the medial some minimal marginal periwound slough is noted. No periwound erythema active drainage or odor is present. Aspect of the left first metatarsal region measuring 1.8 x 1 cm. There is a central eschar present. Neurological: Alert and follows commands. No focal deficits. Laboratory Results Last 24 Hours Test 12/24/17 16:33 12/24/17 17:22 12/24/17 19:41 12/25/17 01:11 Bedside Glucose 271 mg/dl 319 mg/dl 233 mg/dl White Blood Count 20.48 K/uL Red Blood Count 2.95 M/uL Hemoglobin 8.7 g/dL Hematocrit 27.6 % Mean Corpuscular Volume 93.6 fL Mean Corpuscular Hemoglobin 29.5 pg Mean Corpuscular Hemoglobin Concent 31.5 g/dl Platelet Count 333 K/uL Mean Platelet Volume 8.8 fL Neutrophils (%) (Auto) 79.3 % Lymphocytes (%) (Auto) 11.6 % Monocytes (%) (Auto) 4.3 % Eosinophils (%) (Auto) 3.8 % Basophils (%) (Auto) 0.2 % Neutrophils # (Auto) 16.24 K/uL Lymphocytes # (Auto) 2.37 K/uL Monocytes # (Auto) 0.88 K/uL Eosinophils # (Auto) 0.77 K/uL Basophils # (Auto) 0.05 K/uL RDW Standard Deviation 57.5 fL RDW Coefficient of Variation 16.8 % Immature Granulocyte % (Auto) 0.8 % Immature Granulocyte # (Auto) 0.17 K/uL Schistocytes 1+ Sodium Level 140 mmol/L Potassium Level 3.9 mmol/L Chloride Level 103 mmol/L Carbon Dioxide Level 32 mmol/L Anion Gap 5.0 mmol/L Blood Urea Nitrogen 23 mg/dl Creatinine 0.87 mg/dl Est Creatinine Clear Calc Drug Dose 39.3 ml/min Estimated GFR () 68.9 Estimated GFR (Non- 59.5 BUN/Creatinine Ratio 26.9 Random Glucose 252 mg/dl Calcium Level 9.4 mg/dl Total Bilirubin 0.3 mg/dl Aspartate Amino Transf (AST/SGOT) 14 U/L Alanine Aminotransferase (ALT/SGPT) 10 U/L Alkaline Phosphatase 104 U/L Total Protein 6.2 gm/dl Albumin 1.7 gm/dl Globulin 4.5 gm/dl Albumin/Globulin Ratio 0.4 Test 12/25/17 05:33 12/25/17 07:31 12/25/17 11:28 White Blood Count 25.09 K/uL Red Blood Count 2.92 M/uL Hemoglobin 8.5 g/dL Hematocrit 27.3 % Mean Corpuscular Volume 93.5 fL Mean Corpuscular Hemoglobin 29.1 pg Mean Corpuscular Hemoglobin Concent 31.1 g/dl Platelet Count 332 K/uL Mean Platelet Volume 8.8 fL Neutrophils (%) (Auto) 81.2 % Lymphocytes (%) (Auto) 9.8 % Monocytes (%) (Auto) 3.9 % Eosinophils (%) (Auto) 4.1 % Basophils (%) (Auto) 0.2 % Neutrophils # (Auto) 20.39 K/uL Lymphocytes # (Auto) 2.46 K/uL Monocytes # (Auto) 0.98 K/uL Eosinophils # (Auto) 1.02 K/uL Basophils # (Auto) 0.05 K/uL RDW Standard Deviation 57.0 fL RDW Coefficient of Variation 16.7 % Immature Granulocyte % (Auto) 0.8 % Immature Granulocyte # (Auto) 0.19 K/uL Toxic Granulation OCCASIONAL Dohle Bodies 1+ Schistocytes OCCASIONAL Creatinine 0.76 mg/dl Est Creatinine Clear Calc Drug Dose 45.0 ml/min Estimated GFR () 81.2 Estimated GFR (Non- 70.0 Bedside Glucose 123 mg/dl 203 mg/dl Assessment & Plan Assessment: Postoperative wound right hip stable Stage III pressure ulcer left foot Plan: The right hip wound will continue to be managed with a wound VAC black foam 125 mm of negative pressure with Adaptic at the base. Wound VAC will be changed 3 times weekly. The ulceration of the left foot did require debridement. With patient's permission after the application of topical Xylocaine 4% the site was debrided with a scissors and forceps. The eschar was removed in its entirety. Underlying slough and some subcutaneous tissue was also removed. No bleeding occurred. The site will be dressed with Aquacel Ag and gauze changed on a daily basis patient will continue to be monitored during her hospitalization followed up in the outpatient clinic as warranted. The postoperative measurement on the site was 1.8 x 1 x 0.1 cm. This represented an excisional debridement of less than 20 cm.
--- NOTE | 2017-12-25 15:14 | Progress Note ---
Subjective Date of Service: Dec 25, 2017. Subjective Pt evaluation today including: conversation w/ patient, physical exam, chart review, lab review pt awake, alert, denies pain, no f/c. s/p wound care eval, vac remains. tolerating abx. blood cultures negative, afebrile. wbc remains elevated. all remaining ros reviewed and are negative. wound culture with tawny, unclear significance. Problem List Medical Problems: (1) Altered mental status Status: Acute (2) Bradycardia Status: Acute (3) Bronchitis Status: Acute (4) Cellulitis of right hip Status: Acute (5) Expressive aphasia Status: Acute (6) Fall Status: Acute (7) Pneumonia Status: Acute (8) Possible urinary tract infection Status: Acute (9) Postoperative abscess Status: Acute (10) Receptive aphasia Status: Acute (11) Skin tear of right hand without complication Status: Acute Objective Vital Signs Date Time Temp Pulse Resp B/P (MAP) Pulse Ox O2 Delivery O2 Flow Rate FiO2 12/25/17 11:24 72 16 94 Nasal Cannula 2.0 12/25/17 09:00 Nasal Cannula 2.0 12/25/17 07:42 36.9 72 16 173/63 (99) 99 Room Air 12/25/17 07:18 70 16 96 Nasal Cannula 2.0 12/25/17 00:00 98 Nasal Cannula 2.0 12/24/17 22:07 36.9 73 18 152/69 (96) 98 Nasal Cannula 3.0 12/24/17 19:05 71 16 98 Nasal Cannula 2.0 12/24/17 16:29 Nasal Cannula 4.0 12/24/17 15:57 36.6 69 18 146/69 (94) 98 Nasal Cannula 2.0 12/24/17 15:17 72 16 95 Nasal Cannula 2.0 Physical Exam General Appearance: WD/WN, no apparent distress Eyes: normal inspection, EOMI Neck: supple Respiratory/Chest: lungs clear, + decreased breath sounds Cardiovascular: regular rate, rhythm, no edema Abdomen: soft Extremities: non-tender Neurologic/Psychiatric: alert Skin: normal color Laboratory Results Item Value Date Time Blood Culture - Preliminary Resulted 12/22/17 1610 Blood NO GROWTH TO DATE. Blood Culture - Preliminary Resulted 12/22/17 1445 Blood NO GROWTH TO DATE. Gram Stain - Final Complete 12/22/17 1854 Skin Back, Upper Last 24 Hours Test 12/24/17 16:33 12/24/17 17:22 12/24/17 19:41 12/25/17 01:11 Bedside Glucose 271 mg/dl 319 mg/dl 233 mg/dl White Blood Count 20.48 K/uL Red Blood Count 2.95 M/uL Hemoglobin 8.7 g/dL Hematocrit 27.6 % Mean Corpuscular Volume 93.6 fL Mean Corpuscular Hemoglobin 29.5 pg Mean Corpuscular Hemoglobin Concent 31.5 g/dl Platelet Count 333 K/uL Mean Platelet Volume 8.8 fL Neutrophils (%) (Auto) 79.3 % Lymphocytes (%) (Auto) 11.6 % Monocytes (%) (Auto) 4.3 % Eosinophils (%) (Auto) 3.8 % Basophils (%) (Auto) 0.2 % Neutrophils # (Auto) 16.24 K/uL Lymphocytes # (Auto) 2.37 K/uL Monocytes # (Auto) 0.88 K/uL Eosinophils # (Auto) 0.77 K/uL Basophils # (Auto) 0.05 K/uL RDW Standard Deviation 57.5 fL RDW Coefficient of Variation 16.8 % Immature Granulocyte % (Auto) 0.8 % Immature Granulocyte # (Auto) 0.17 K/uL Schistocytes 1+ Sodium Level 140 mmol/L Potassium Level 3.9 mmol/L Chloride Level 103 mmol/L Carbon Dioxide Level 32 mmol/L Anion Gap 5.0 mmol/L Blood Urea Nitrogen 23 mg/dl Creatinine 0.87 mg/dl Est Creatinine Clear Calc Drug Dose 39.3 ml/min Estimated GFR () 68.9 Estimated GFR (Non- 59.5 BUN/Creatinine Ratio 26.9 Random Glucose 252 mg/dl Calcium Level 9.4 mg/dl Total Bilirubin 0.3 mg/dl Aspartate Amino Transf (AST/SGOT) 14 U/L Alanine Aminotransferase (ALT/SGPT) 10 U/L Alkaline Phosphatase 104 U/L Total Protein 6.2 gm/dl Albumin 1.7 gm/dl Globulin 4.5 gm/dl Albumin/Globulin Ratio 0.4 Test 12/25/17 05:33 12/25/17 07:31 12/25/17 11:28 White Blood Count 25.09 K/uL Red Blood Count 2.92 M/uL Hemoglobin 8.5 g/dL Hematocrit 27.3 % Mean Corpuscular Volume 93.5 fL Mean Corpuscular Hemoglobin 29.1 pg Mean Corpuscular Hemoglobin Concent 31.1 g/dl Platelet Count 332 K/uL Mean Platelet Volume 8.8 fL Neutrophils (%) (Auto) 81.2 % Lymphocytes (%) (Auto) 9.8 % Monocytes (%) (Auto) 3.9 % Eosinophils (%) (Auto) 4.1 % Basophils (%) (Auto) 0.2 % Neutrophils # (Auto) 20.39 K/uL Lymphocytes # (Auto) 2.46 K/uL Monocytes # (Auto) 0.98 K/uL Eosinophils # (Auto) 1.02 K/uL Basophils # (Auto) 0.05 K/uL RDW Standard Deviation 57.0 fL RDW Coefficient of Variation 16.7 % Immature Granulocyte % (Auto) 0.8 % Immature Granulocyte # (Auto) 0.19 K/uL Toxic Granulation OCCASIONAL Dohle Bodies 1+ Schistocytes OCCASIONAL Creatinine 0.76 mg/dl Est Creatinine Clear Calc Drug Dose 45.0 ml/min Estimated GFR () 81.2 Estimated GFR (Non- 70.0 Bedside Glucose 123 mg/dl 203 mg/dl Assessment and Plan (1) Abscess of right hip Assessment & Plan: add fluconazole, continue abx. continue wound care.
--- NOTE | 2017-12-25 19:04 | Progress Note ---
Medicine Progress Note Date & Time of Visit: Dec 25, 2017 at 18:46. Subjective Pt was seen and examined Lying in bed with no distress Pt said that she feels slightly better She said that her nose feels stuffy pt said that she did not sleep much last night She said that she takes ambien at night to sleep Denies any chest pain, palpitation, dizziness and SOB Objective Last 8 Hrs Date Time Temp Pulse Resp B/P (MAP) Pulse Ox O2 Delivery O2 Flow Rate FiO2 12/25/17 17:00 Nasal Cannula 2.0 12/25/17 16:15 37.1 77 20 146/64 (91) 95 Nasal Cannula 2.0 12/25/17 15:48 66 16 96 Nasal Cannula 2.0 12/25/17 11:24 72 16 94 Nasal Cannula 2.0 Physical Exam: General- No acute distress Head- atraumatic Eyes- PERRL, EOMI ENT- oropharynx clear Neck- supple, no JVD Lungs- decrease breath sound Heart- +Systolic murmur Abdomen- normal bowel sounds, soft Extremities- no calf tenderness Neuro- alert, oriented x 3; PERRL, EOMI Skin- warm & dry Laboratory Results: Last 24 Hours Test 12/24/17 19:41 12/25/17 01:11 12/25/17 05:33 12/25/17 07:31 Bedside Glucose 319 mg/dl 233 mg/dl 123 mg/dl White Blood Count 25.09 K/uL Red Blood Count 2.92 M/uL Hemoglobin 8.5 g/dL Hematocrit 27.3 % Mean Corpuscular Volume 93.5 fL Mean Corpuscular Hemoglobin 29.1 pg Mean Corpuscular Hemoglobin Concent 31.1 g/dl Platelet Count 332 K/uL Mean Platelet Volume 8.8 fL Neutrophils (%) (Auto) 81.2 % Lymphocytes (%) (Auto) 9.8 % Monocytes (%) (Auto) 3.9 % Eosinophils (%) (Auto) 4.1 % Basophils (%) (Auto) 0.2 % Neutrophils # (Auto) 20.39 K/uL Lymphocytes # (Auto) 2.46 K/uL Monocytes # (Auto) 0.98 K/uL Eosinophils # (Auto) 1.02 K/uL Basophils # (Auto) 0.05 K/uL RDW Standard Deviation 57.0 fL RDW Coefficient of Variation 16.7 % Immature Granulocyte % (Auto) 0.8 % Immature Granulocyte # (Auto) 0.19 K/uL Toxic Granulation OCCASIONAL Dohle Bodies 1+ Schistocytes OCCASIONAL Creatinine 0.76 mg/dl Est Creatinine Clear Calc Drug Dose 45.0 ml/min Estimated GFR () 81.2 Estimated GFR (Non- 70.0 Test 12/25/17 11:28 12/25/17 17:06 Bedside Glucose 203 mg/dl 195 mg/dl Assessment & Plan Leukocytosis Possible related to postoperative wound right hip and Stage III pressure ulcer left foot WBC on admission 21K, increased top 25K today Afebrile Wound cx growth coag neg staph and tawny albicans On Cefepime and Vanco IV ID on board recommended to continue abx and adding fluconazole 100mg po s/p wound debridement of left foot ulcer by Dr. 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 Leukocytosis from malignancy should be considered once infectious processes worked up or ruled out ALTERED MENTAL STATUS encephalopathy secondary to infection vs dementia Stable HYPOXIA / Pleural effusions / CHF -CT chest 12/22/17: Small to moderate sized bilateral pleural effusions are noted in addition to left greater than right bilateral lower lobe consolidation and multifocal lower lobe mucous plugging. Only a minimal portion of the left lower lobe is aerated. These findings suggest atelectasis with superimposed pneumonia -is already on multiple antibiotics -is given incentive spirometry but unlikely to use without assistance, nursing orders to assist patient with incentive spirometer -Supplemental O2 as needed. -November 2017, Ejection Fraction = 60-65%, grade I diastolic dysfunction -patient was on IV lasix BID to reduce fluid overload in lung initially but has needed IV fluids as more hypernatremic, IV fluids stopped today and switch to oral lasix HYPOKALEMIA from diuretics on BID potassium supplements to prevent electrolyte deficiencies and additional oral potassium given from diuretics decrease standing potassium when on reduced lasix starting from now Protein-Calorie Malnutrition encouraged nursing staff to help patient with feeding HYPERTENSION / Fusiform aneurysmal dilation of the ascending thoracic aorta redemonstrated 4.[address] scan Continue amlodipine and clonidine. DM TYPE 2 Hemoglobin A1c 7.6 on 11/17/17. Basal bolus insulin therapy with Lantus + NovoLog per protocol. VTE PROPHYLAXIS SQ heparin. RESUSCITATION STATUS DNR DISPOSITION: stay on Med-Surg Unit. resident of [facility]. Family and next of kin Tyree [phone] helps with medical decision making Current Inpatient Medications: Current Inpatient Medications Medications (Trade) Dose Ordered Sig/Zaina Route Start Time Stop Time Status Last Admin Dose Admin Ioversol (Optiray 320) 100 ml UD PRN IV 12/22/17 14:45 12/26/17 14:44 Heparin Sodium (Porcine) (Heparin Sq 5000 Unit/0.5ml) 5,000 unit Q12 SQ 12/22/17 21:00 01/21/18 20:59 12/25/17 08:40 5,000 UNIT Acetaminophen (Tylenol Tab) 650 mg Q4H PRN PO 12/22/17 18:45 01/21/18 18:44 Amlodipine Besylate (Norvasc Tab) 10 mg DAILY PO 12/23/17 08:00 01/22/18 08:59 12/25/17 08:07 10 MG Aspirin (Ecotrin Tab) 81 mg BIDM PO 12/23/17 08:00 01/22/18 07:59 12/25/17 16:38 81 MG Cholecalciferol (Vitamin D Tab) 1,000 inter.unit DAILY PO 12/23/17 08:00 01/22/18 08:59 12/25/17 08:07 1,000 INTER.UNIT Citalopram Hydrobromide (celeXA TAB) 20 mg HS PO 12/22/17 21:00 01/21/18 20:59 12/24/17 21:36 20 MG Clonidine HCl (Catapres Tab) 0.1 mg BID PO 12/22/17 20:00 01/21/18 20:59 12/25/17 08:08 0.1 MG Cyanocobalamin (Vitamin B-12 Tab) 100 mcg DAILY PO 12/23/17 08:00 01/22/18 08:59 12/25/17 08:07 100 MCG Folic Acid (Folvite Tab) 1 mg DAILY PO 12/23/17 08:00 01/22/18 08:59 12/25/17 08:08 1 MG Albuterol/ Ipratropium (Duoneb) 3 ml QIDR INH 12/22/17 20:00 01/21/18 19:59 12/25/17 15:47 3 ML Senna/Docusate Sodium (Senokot S Tab) 2 tab BID PO 12/22/17 20:00 01/21/18 20:59 12/25/17 08:08 2 TAB Simvastatin (Zocor Tab) 20 mg QPM PO 12/22/17 21:00 01/21/18 20:59 12/24/17 21:36 20 MG Glucose (Glucose 40% Gel) 15-30 GRAMS 15 GRAMS... UD PRN PO 12/22/17 20:15 01/21/18 20:14 Glucose (Glucose Chew Tab) 4-8 Tablets 4 Tabl... UD PRN PO 12/22/17 20:15 01/21/18 20:14 Dextrose (Dextrose 50% 50ML Syringe) 25-50ML OF 50% DW IV FOR... UD PRN IV 12/22/17 20:15 01/21/18 20:14 Glucagon (Glucagon Inj) 1 mg UD PRN SQ 12/22/17 20:15 01/21/18 20:14 Miscellaneous Information (Consult) 1 ea UD PRN N/A 12/23/17 01:45 01/22/18 01:44 Insulin Aspart (novoLOG ASPART) SLIDING SCALE G... ACHS SC 12/23/17 06:30 01/22/18 06:29 12/25/17 17:35 8 UNITS Potassium Chloride (Klor-Con Tab) 20 meq BID PO 12/23/17 08:00 01/22/18 07:59 12/25/17 08:08 20 MEQ Cefepime HCl 2000 mg/Syringe 20 ml @ 5 mls/min Q24H IV 12/23/17 06:00 01/02/18 05:59 12/25/17 05:59 5 MLS/MIN Cefepime HCl (Consult) 1 ea UD PRN N/A 12/23/17 04:00 01/22/18 03:59 Heparin Sodium (Porcine) (Heparin 10 Unit/ ml 5 ml Flush) 5 ml PRN PRN FLUSH 12/23/17 05:15 01/22/18 05:14 12/25/17 06:01 5 ML Vancomycin HCl 1250 mg/Sodium Chloride 275 ml @ 125 mls/hr Q30H IV 12/24/17 16:00 01/03/18 15:59 12/24/17 15:46 125 MLS/HR Enteral Nutritional Formula (Boost Glucose Control) 1 can TIDM PO 12/23/17 17:00 01/22/18 16:59 12/25/17 16:38 1 CAN Furosemide (Lasix Tab) 20 mg QAM PO 12/25/17 08:00 01/24/18 07:59 12/25/17 08:08 20 MG Insulin Glargine (Lantus Solostar Pen) 12 units BID SC 12/24/17 21:00 01/21/18 20:59 12/25/17 08:40 12 UNITS Miconazole Nitrate (Desenex Powder) 1 appln UD PRN EXT 12/25/17 09:45 01/24/18 09:44 Fluconazole (Diflucan Tab) 100 mg QAM PO 12/26/17 08:00 01/05/18 07:59
[2017-12-25] MEDS ORDERED: SODIUM CHLORIDE 0.65% NA SOLN 45 ML (OCEAN) PRN (19:45)
[2017-12-25] MEDS ORDERED: BISACODYL 5 MG TABEC PO PRN (19:45)
[2017-12-25] MEDS ORDERED: ZOLPIDEM TARTRATE 5 MG TAB PO PRN (19:45)
[2017-12-25] MEDS ORDERED: COUGH DROP (SUGAR FREE) LOZ 24 LOZ/1 BOX LOZ PRN (20:00)
[2017-12-25] MEDS: SIMVASTATIN 20 MG TAB PO SCH (20:47)
[2017-12-25] MEDS: CITALOPRAM 20 MG TAB PO SCH (20:48)
--- NOTE | 2017-12-25 21:21 | ECHOCARDIOGRAM REPORT ---
*NOTICE TO RECEIVING CON[employer]UTION [employer]Y AGENCY This information is strictly Confidential and protected under [place] law. [place] law prohibits you from making any further disclosure of this information unless further disclosure is expressly permitted by the written consent of the person to whom it pertains or is authorized by law. A general authorization for the release of medical or other information is not sufficient for this purpose. Hospital accepts no responsibility if the information is made available to any other person, INCLUDING THE PATIENT. Interpretation Summary * Name: SREE CHACKO Study Date: 12/25/2017 01:59 PM BP: 127/52 mmHg * Patient Location: [id number]\2 HR: 77 * : 1930 (M/d/yyyy) Gender: Female Height: 62 in * Age: 87 yrs Ethnicity: [place] Weight: 141 lb * Ordering Physician: Edgard Zarco * Referring Physician: Self, Referred * Performed By: Fior Castillo RCS * * Reason For Study: R/O OBVIOUS VEGETATION OR ENDOCARDITIS * BSA: 1.6 m2 * -- Conclusions -- * There is no evidence of valvular vegetation within the limits of this imaging modality. Procedure Details * Limited views were obtained. Left Ventricle * The left ventricle is normal in size. * There is mild concentric left ventricular hypertrophy. * Ejection Fraction = 55-60%. * The left ventricular wall motion is normal. Atria * The left atrial size is normal. * Right atrial size is normal. Mitral Valve * There is mild mitral annular calcification. * There is no mitral valve stenosis. * Significant mitral regurgitation is absent. Tricuspid Valve * The tricuspid valve is not well visualized, but is grossly normal. * There is no tricuspid stenosis. * There is mild tricuspid regurgitation. Aortic Valve * There is no aortic valvular vegetation. Great Vessels * Normal inferior vena cava size and collapsability with sniff indicates a normal right atrial pressure of 3 mmHg MMode 2D Measurements and Calculations IVSd 1.4 cm LVIDd 4.4 cm LVPWd 1.3 cm IVS/LVPW 1.0 EDV(Teich) 87.3 ml EDV(cubed) 84.7 ml LV mass(C)d 228.2 grams LV mass(C)dI 138.5 grams/m\S\2 Doppler Measurements and Calculations TR max marilu 283.0 cm/sec
[2017-12-25] MEDS ORDERED: VANCOMYCIN TROUGH ONE (21:30)
[2017-12-25] MEDS: VANCOMYCIN IV 1,250 MG in SODIUM CHLORIDE 0.9% 250ML 250 ML IV SCH (22:00)
--- NOTE | 2017-12-25 22:49 | Pharmacy Progress Note ---
Pharmacy Abx Dose Short Note Date of Service Dec 25, 2017. Assessment & Plan Assessment 87 year old female receiving Vancomycin for treatment of cellulitis, R hip infection w/ abscess Day # 4 of inpatient antimicrobial therapy. Plan Vancomycin * Trough level of 17.9 mcg/mL is therapeutic * Continue dose of 1250 mg IV every 30 hours * Goal trough level for cellulitis with joint involvement: 15 to 20 mcg/mL * Trough level ordered for: 12/28/17 @ 0930 --> to make sure patient remains within therapeutic range Pharmacy will continue to follow and will adjust dose/frequency as necessary. Thank you.
[2017-12-26] VITALS (8 sets, daily range): BP systolic 125–157; BP diastolic 57–61; PULSE 71–82; TEMP 36.7–36.8; O2SAT 92–97
[2017-12-26] MEDS: CEFEPIME IV 2,000 MG in SYRINGE 7.5 ML IV SCH (05:34)
[2017-12-26 05:57] LABS: HEMATOCRIT 25.2 % (37-47); HEMOGLOBIN 8.2 g/dL (12.0-16.0); MEAN CORPUSCULAR HEMOGLOBIN 29.9 pg (25-34); MEAN CORPUSCULAR HGB CONC 32.5 g/dl (32-36); PLATELET COUNT 328 K/uL (130-400); RED CELL DISTRIBUTION WIDTH CV 16.9 % (11.5-14.5); RED CELL DISTRIBUTION WIDTH SD 56.3 fL (36.4-46.3); WHITE BLOOD COUNT 25.91 K/uL (4.8-10.8)
[2017-12-26 06:27] LABS: CREATININE 0.78 mg/dl (0.60-1.20)
[2017-12-26] MEDS: ALBUT/IPRATROP 3MG/0.5MG NEB 3 ML VIAL INH SCH ×4 (07:08→19:22)
[2017-12-26] MEDS: INSULIN ASPART 100 UNITS/ML 3 ML PEN SC SCH ×3 (09:05→19:13)
[2017-12-26] MEDS: CHOLECALCIFEROL 1000 INTER.UNIT TAB PO SCH (09:06)
[2017-12-26] MEDS: ASPIRIN 81 MG ECTAB PO SCH ×2 (09:07→19:09)
[2017-12-26] MEDS: POTASSIUM CHLORIDE 20 MEQ TABCR PO SCH ×2 (09:07→20:41)
[2017-12-26] MEDS: CYANOCOBALAMIN 100 MCG TAB (VIT B-12) PO SCH (09:07)
[2017-12-26] MEDS: AMLODIPINE BESYLATE 5 MG TAB PO SCH (09:08)
[2017-12-26] MEDS: CLONIDINE HCL 0.1 MG TAB PO SCH ×2 (09:08→20:42)
[2017-12-26] MEDS: FLUCONAZOLE 100 MG TAB PO SCH (09:09)
[2017-12-26] MEDS: FUROSEMIDE 20 MG TAB PO SCH (09:09)
[2017-12-26] MEDS: DOCUSATE SODIUM/SENNA 50/8.6MG TAB PO SCH ×2 (09:10→20:41)
[2017-12-26] MEDS: INSULIN GLARGINE SOLOSTAR 100 UNITS/ML 3 ML PEN SC SCH (09:21)
[2017-12-26] MEDS: HEPARIN SOD 5000 UNIT/0.5 ML CARP SQ SCH ×2 (09:22→21:34)
[2017-12-26] MEDS: BOOST GLUCOSE CONTROL PO SCH ×3 (09:26→19:08)
--- NOTE | 2017-12-26 11:21 | Progress Note ---
Subjective Date of Service: Dec 26, 2017. Subjective pt remains with elevated wbc, added fluconazole yesterday for + wound culture with yeast. echo negative, afebrile. undergoing wound care . blood cultures remain negative . Problem List Medical Problems: (1) Altered mental status Status: Acute (2) Bradycardia Status: Acute (3) Bronchitis Status: Acute (4) Cellulitis of right hip Status: Acute (5) Expressive aphasia Status: Acute (6) Fall Status: Acute (7) Pneumonia Status: Acute (8) Possible urinary tract infection Status: Acute (9) Postoperative abscess Status: Acute (10) Receptive aphasia Status: Acute (11) Skin tear of right hand without complication Status: Acute Objective Vital Signs Date Time Temp Pulse Resp B/P (MAP) Pulse Ox O2 Delivery O2 Flow Rate FiO2 12/26/17 10:56 82 18 93 Nasal Cannula 3.0 12/26/17 07:55 36.8 76 16 157/57 (90) 93 Nasal Cannula 3.0 12/26/17 07:38 Nasal Cannula 3.0 12/26/17 07:11 71 18 92 Nasal Cannula 3.0 12/26/17 00:00 Nasal Cannula 2.0 12/25/17 23:58 36.7 80 18 165/71 (102) 99 3.0 12/25/17 19:45 68 16 95 Nasal Cannula 2.0 12/25/17 19:40 Nasal Cannula 2.0 12/25/17 17:00 Nasal Cannula 2.0 12/25/17 16:15 37.1 77 20 146/64 (91) 95 Nasal Cannula 2.0 12/25/17 15:48 66 16 96 Nasal Cannula 2.0 12/25/17 11:24 72 16 94 Nasal Cannula 2.0 Laboratory Results Item Value Date Time Gram Stain - Final Complete 12/22/17 1854 Skin Back, Upper Blood Culture - Preliminary Resulted 12/22/17 1610 Blood NO GROWTH TO DATE. Blood Culture - Preliminary Resulted 12/22/17 1445 Blood NO GROWTH TO DATE. Last 24 Hours Test 12/25/17 11:28 12/25/17 17:06 12/25/17 20:34 12/25/17 21:06 Bedside Glucose 203 mg/dl 195 mg/dl 201 mg/dl Vancomycin Level Trough 17.9 mcg/ml Test 12/26/17 05:31 12/26/17 08:03 White Blood Count 25.91 K/uL Red Blood Count 2.74 M/uL Hemoglobin 8.2 g/dL Hematocrit 25.2 % Mean Corpuscular Volume 92.0 fL Mean Corpuscular Hemoglobin 29.9 pg Mean Corpuscular Hemoglobin Concent 32.5 g/dl RDW Standard Deviation 56.3 fL RDW Coefficient of Variation 16.9 % Platelet Count 328 K/uL Mean Platelet Volume 9.0 fL Sodium Level 139 mmol/L Potassium Level 4.0 mmol/L Chloride Level 101 mmol/L Carbon Dioxide Level 34 mmol/L Anion Gap 4.0 mmol/L Blood Urea Nitrogen 23 mg/dl Creatinine 0.78 mg/dl Est Creatinine Clear Calc Drug Dose 43.8 ml/min Estimated GFR () 78.7 Estimated GFR (Non- 67.9 BUN/Creatinine Ratio 29.3 Random Glucose 72 mg/dl Calcium Level 10.0 mg/dl Bedside Glucose 101 mg/dl Assessment and Plan (1) Abscess of right hip Assessment & Plan: added fluconazole, continue abx. continue wound care.
--- NOTE | 2017-12-26 16:37 | Progress Note ---
Medicine Progress Note Date & Time of Visit: Dec 26, 2017 at 16:24. Subjective Pt was seen and examined Lying in bed with no distress Pt said that she does not have any pain in her right hip Denies any fever, palpitation and chest pain Objective Last 8 Hrs Date Time Temp Pulse Resp B/P (MAP) Pulse Ox O2 Delivery O2 Flow Rate FiO2 12/26/17 15:58 36.8 79 20 125/61 (82) 95 Nasal Cannula 3.0 12/26/17 15:56 73 18 93 Nasal Cannula 3.0 12/26/17 10:56 82 18 93 Nasal Cannula 3.0 Physical Exam: General- No acute distress Head- atraumatic Eyes- PERRL, EOMI ENT- oropharynx clear Neck- supple, no JVD Lungs- decrease breath sound Heart- +Systolic murmur Abdomen- normal bowel sounds, soft Extremities- no calf tenderness, wound vac in right hip, no erythema and tenderness around the surrounding area of the hip Neuro- alert, oriented x 3; PERRL, EOMI Skin- warm & dry Laboratory Results: Last 24 Hours Test 12/25/17 17:06 12/25/17 20:34 12/25/17 21:06 12/26/17 05:31 Bedside Glucose 195 mg/dl 201 mg/dl Vancomycin Level Trough 17.9 mcg/ml White Blood Count 25.91 K/uL Red Blood Count 2.74 M/uL Hemoglobin 8.2 g/dL Hematocrit 25.2 % Mean Corpuscular Volume 92.0 fL Mean Corpuscular Hemoglobin 29.9 pg Mean Corpuscular Hemoglobin Concent 32.5 g/dl RDW Standard Deviation 56.3 fL RDW Coefficient of Variation 16.9 % Platelet Count 328 K/uL Mean Platelet Volume 9.0 fL Sodium Level 139 mmol/L Potassium Level 4.0 mmol/L Chloride Level 101 mmol/L Carbon Dioxide Level 34 mmol/L Anion Gap 4.0 mmol/L Blood Urea Nitrogen 23 mg/dl Creatinine 0.78 mg/dl Est Creatinine Clear Calc Drug Dose 43.8 ml/min Estimated GFR () 78.7 Estimated GFR (Non- 67.9 BUN/Creatinine Ratio 29.3 Random Glucose 72 mg/dl Calcium Level 10.0 mg/dl Test 12/26/17 08:03 12/26/17 11:55 Bedside Glucose 101 mg/dl 216 mg/dl Assessment & Plan Leukocytosis Possible related to postoperative wound right hip and Stage III pressure ulcer left foot CT right LE showed Interval development of periostitis with heterotopic ossifications adjacent to the anterolateral proximal right femoral shaft along with ill-defined fluid collections adjacent to the proximal femoral shaft and posterior lateral to the femoral head, possibly reflecting abscess formations as above with areas of deep tissue air. Moderate subcutaneous edema with skin thickening about the right thigh suggests cellulitis WBC on admission 21K WBC continue to elevate at 25k Afebrile Wound cx growth coag neg staph and tawny albicans On Cefepime and Vanco IV ID on board recommended to continue abx and adding fluconazole 100mg po s/p wound debridement of left foot ulcer by Dr. 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 Leukocytosis from malignancy should be considered once infectious processes worked up or ruled out ALTERED MENTAL STATUS encephalopathy secondary to infection vs dementia Stable HYPOXIA / Pleural effusions / CHF -CT chest 12/22/17: Small to moderate sized bilateral pleural effusions are noted in addition to left greater than right bilateral lower lobe consolidation and multifocal lower lobe mucous plugging. Only a minimal portion of the left lower lobe is aerated. These findings suggest atelectasis with superimposed pneumonia -is already on multiple antibiotics -is given incentive spirometry but unlikely to use without assistance, nursing orders to assist patient with incentive spirometer -Supplemental O2 as needed. -November 2017, Ejection Fraction = 60-65%, grade I diastolic dysfunction -patient was on IV lasix BID to reduce fluid overload in lung initially but has needed IV fluids as more hypernatremic, IV fluids stopped today and switch to oral lasix 12/26 stable Continue lasix 20mg daily Will monitor for sign of fluid overload HYPOKALEMIA K stable Continue potassium supplement Monitor BMP Protein-Calorie Malnutrition encouraged nursing staff to help patient with feeding HYPERTENSION Continue amlodipine and clonidine. BP stable ASCENDING THORACIC ANEURYSM CT scan showed fusiform aneurysmal dilation of the ascending thoracic aorta redemonstrated 4.3 cm Continue follow up as an outpatient DM TYPE 2 Hemoglobin A1c 7.6 on 11/17/17. Basal bolus insulin therapy with Lantus + NovoLog per protocol. Monitor BS VTE PROPHYLAXIS SQ heparin. RESUSCITATION STATUS DNR DISPOSITION: resident of [facility]. Family and next of kin Tyree [phone] helps with medical decision making Current Inpatient Medications: Current Inpatient Medications Medications (Trade) Dose Ordered Sig/Zaina Route Start Time Stop Time Status Last Admin Dose Admin Heparin Sodium (Porcine) (Heparin Sq 5000 Unit/0.5ml) 5,000 unit Q12 SQ 12/22/17 21:00 01/21/18 20:59 12/26/17 09:22 5,000 UNIT Acetaminophen (Tylenol Tab) 650 mg Q4H PRN PO 12/22/17 18:45 01/21/18 18:44 Amlodipine Besylate (Norvasc Tab) 10 mg DAILY PO 12/23/17 08:00 01/22/18 08:59 12/26/17 09:08 10 MG Aspirin (Ecotrin Tab) 81 mg BIDM PO 12/23/17 08:00 01/22/18 07:59 12/26/17 09:07 81 MG Cholecalciferol (Vitamin D Tab) 1,000 inter.unit DAILY PO 12/23/17 08:00 01/22/18 08:59 12/26/17 09:06 1,000 INTER.UNIT Citalopram Hydrobromide (celeXA TAB) 20 mg HS PO 12/22/17 21:00 01/21/18 20:59 12/25/17 20:48 20 MG Clonidine HCl (Catapres Tab) 0.1 mg BID PO 12/22/17 20:00 01/21/18 20:59 12/26/17 09:08 0.1 MG Cyanocobalamin (Vitamin B-12 Tab) 100 mcg DAILY PO 12/23/17 08:00 01/22/18 08:59 12/26/17 09:07 100 MCG Folic Acid (Folvite Tab) 1 mg DAILY PO 12/23/17 08:00 01/22/18 08:59 12/26/17 09:08 1 MG Albuterol/ Ipratropium (Duoneb) 3 ml QIDR INH 12/22/17 20:00 4/9/18 19:59 12/26/17 15:53 3 ML Senna/Docusate Sodium (Senokot S Tab) 2 tab BID PO 12/22/17 20:00 01/21/18 20:59 12/26/17 09:10 2 TAB Simvastatin (Zocor Tab) 20 mg QPM PO 12/22/17 21:00 01/21/18 20:59 12/25/17 20:47 20 MG Glucose (Glucose 40% Gel) 15-30 GRAMS 15 GRAMS... UD PRN PO 12/22/17 20:15 01/21/18 20:14 Glucose (Glucose Chew Tab) 4-8 Tablets 4 Tabl... UD PRN PO 12/22/17 20:15 01/21/18 20:14 Dextrose (Dextrose 50% 50ML Syringe) 25-50ML OF 50% DW IV FOR... UD PRN IV 12/22/17 20:15 01/21/18 20:14 Glucagon (Glucagon Inj) 1 mg UD PRN SQ 12/22/17 20:15 01/21/18 20:14 Miscellaneous Information (Consult) 1 ea UD PRN N/A 12/23/17 01:45 01/22/18 01:44 Insulin Aspart (novoLOG ASPART) SLIDING SCALE G... ACHS SC 12/23/17 06:30 01/22/18 06:29 12/26/17 13:01 7 UNITS Potassium Chloride (Klor-Con Tab) 20 meq BID PO 12/23/17 08:00 01/22/18 07:59 12/26/17 09:07 20 MEQ Cefepime HCl 2000 mg/Syringe 20 ml @ 5 mls/min Q24H IV 12/23/17 06:00 01/02/18 05:59 12/26/17 05:34 5 MLS/MIN Cefepime HCl (Consult) 1 ea UD PRN N/A 12/23/17 04:00 01/22/18 03:59 Heparin Sodium (Porcine) (Heparin 10 Unit/ ml 5 ml Flush) 5 ml PRN PRN FLUSH 12/23/17 05:15 01/22/18 05:14 12/26/17 05:34 5 ML Enteral Nutritional Formula (Boost Glucose Control) 1 can TIDM PO 12/23/17 17:00 01/22/18 16:59 12/26/17 13:08 1 CAN Furosemide (Lasix Tab) 20 mg QAM PO 12/25/17 08:00 01/24/18 07:59 12/26/17 09:09 20 MG Insulin Glargine (Lantus Solostar Pen) 12 units BID SC 12/24/17 21:00 01/21/18 20:59 12/26/17 09:21 12 UNITS Miconazole Nitrate (Desenex Powder) 1 appln UD PRN EXT 12/25/17 09:45 01/24/18 09:44 Fluconazole (Diflucan Tab) 100 mg QAM PO 12/26/17 08:00 01/05/18 07:59 12/26/17 09:09 100 MG Sodium Chloride ([place] Nasal [place]) 1 sprays BID PRN NA 12/25/17 19:45 01/24/18 19:44 12/25/17 20:45 1 SPRAYS Menthol ([place]) 1 kelly PRN PRN KELLY 12/25/17 20:00 01/24/18 19:59 12/25/17 20:45 1 KELLY Vancomycin HCl 1250 mg/Sodium Chloride 275 ml @ 125 mls/hr Q36H IV 12/27/17 11:00 01/06/18 10:59
[2017-12-26] MEDS: SIMVASTATIN 20 MG TAB PO SCH (20:41)
[2017-12-26] MEDS: CITALOPRAM 20 MG TAB PO SCH (20:42)
[2017-12-26] MEDS ORDERED: INSULIN ASPART 100 UNITS/ML 3 ML PEN SC ONE (20:57)
[2017-12-26] MEDS ORDERED: INSULIN GLARGINE SOLOSTAR 100 UNITS/ML 3 ML PEN SC ONE (20:59)
[2017-12-27] MEDS ORDERED: VANCOMYCIN TROUGH ONE ×2 (03:30→09:30)
[2017-12-27] MEDS: CEFEPIME IV 2,000 MG in SYRINGE 7.5 ML IV SCH (05:29)
[2017-12-27 05:38] LABS: HEMATOCRIT 24.1 % (37-47); HEMOGLOBIN 7.9 g/dL (12.0-16.0); MEAN CELL VOLUME 91.3 fL (80-100); MEAN CORPUSCULAR HEMOGLOBIN 29.9 pg (25-34); MEAN CORPUSCULAR HGB CONC 32.8 g/dl (32-36); MEAN PLATELET VOLUME 8.7 fL (7.4-10.4); PLATELET COUNT 306 K/uL (130-400); RED CELL DISTRIBUTION WIDTH SD 56.6 fL (36.4-46.3); WHITE BLOOD COUNT 27.65 K/uL (4.8-10.8)
[2017-12-27 06:02] LABS: CALCIUM 10.5 mg/dl (8.5-10.1); CREATININE 0.78 mg/dl (0.60-1.20); POTASSIUM 4.3 mmol/L (3.5-5.1)
[2017-12-27] MEDS: ALBUT/IPRATROP 3MG/0.5MG NEB 3 ML VIAL INH SCH ×4 (07:01→19:57)
[2017-12-27 07:02] VITALS: PULSE 72; O2SAT 96
[2017-12-27 07:41] VITALS: BP 157/69; PULSE 72; TEMP 36.9; O2SAT 100
[2017-12-27 08:00] VITALS: O2SAT 100
--- NOTE | 2017-12-27 09:29 | DIAGNOSTIC IMAGING REPORT ---
R EXTREMITY NONVASCULAR LIMITED CLINICAL HISTORY: F/u of right hip edema to r/o abscess or collection pain. Edema. TECHNIQUE: Ultrasound COMPARISON STUDY: CT 12/22/2017 FINDINGS: Considerable generalized soft tissue edema. Several multifocal mild deep phlegmon is type collections adjacent to the femoral head. These appear to be complex fluid with no well-defined evidence for a drainable solitary focus or collection. Air is present at several sites. IMPRESSION: 1. Generalized soft tissue edema with multi focal phlegmon like collections within the deep soft tissues adjacent to the right hip prosthetic. Several associated air pockets are present. 2. No evidence for a large drainable solitary simple fluid pocket. The above report was generated using voice recognition software. It may contain grammatical, syntax or spelling errors. Electronically signed by: Gael Langley M.D. 12/27/2017 9:28 AM Dictated Date/Time: 12/27/2017 9:22 AM
[2017-12-27] MEDS: ASPIRIN 81 MG ECTAB PO SCH ×2 (09:33→18:00)
[2017-12-27] MEDS: DOCUSATE SODIUM/SENNA 50/8.6MG TAB PO SCH ×2 (09:33→21:47)
[2017-12-27] MEDS: CLONIDINE HCL 0.1 MG TAB PO SCH ×2 (09:33→21:47)
[2017-12-27] MEDS: CHOLECALCIFEROL 1000 INTER.UNIT TAB PO SCH (09:33)
[2017-12-27] MEDS: FUROSEMIDE 20 MG TAB PO SCH (09:33)
[2017-12-27] MEDS: CYANOCOBALAMIN 100 MCG TAB (VIT B-12) PO SCH (09:33)
[2017-12-27] MEDS: POTASSIUM CHLORIDE 20 MEQ TABCR PO SCH ×2 (09:34→21:48)
[2017-12-27] MEDS: FLUCONAZOLE 100 MG TAB PO SCH (09:34)
[2017-12-27] MEDS: AMLODIPINE BESYLATE 5 MG TAB PO SCH (09:34)
[2017-12-27] MEDS: BOOST GLUCOSE CONTROL PO SCH ×3 (09:37→18:00)
[2017-12-27] MEDS: INSULIN ASPART 100 UNITS/ML 3 ML PEN SC SCH ×4 (10:15→21:46)
[2017-12-27] MEDS: HEPARIN SOD 5000 UNIT/0.5 ML CARP SQ SCH ×2 (10:16→21:50)
[2017-12-27] MEDS: INSULIN GLARGINE SOLOSTAR 100 UNITS/ML 3 ML PEN SC SCH ×2 (10:16→21:49)
[2017-12-27 11:00] VITALS: Ht 157.5 cm; Wt 64.1 kg
--- NOTE | 2017-12-27 11:01 | Pharmacy Progress Note ---
Pharmacy Abx Dose Short Note Date of Service Dec 27, 2017. Assessment & Plan Item Value Date Time Vancomycin Level Trough 18.5 mcg/ml 12/27/17 0930 Assessment 87 year old female receiving IV Vancomycin & Cefepime for treatment of cellulitis of right hip w/ abscess. Elevated WBCs, po fluconazole added for wound culture with yeast. Wound care, Blood cultures remain negative. Day # 6 of antimicrobial therapy as inpatient, patient was receiving Vancomycin 1250mg IV Q36H at [facility]. Plan Vancomycin * Trough level of 18.5 mcg/mL is therapeutic. * Continue dose of 1250mg IV every 36 hours * Goal trough level 15 to 20 mcg/mL * Further levels will be ordered depending on duration of therapy. Pharmacy will continue to follow and will adjust dose/frequency as necessary. Thank you.
[2017-12-27 11:33] VITALS: PULSE 65; O2SAT 94
[2017-12-27] MEDS: VANCOMYCIN IV 1,250 MG in SODIUM CHLORIDE 0.9% 250ML 250 ML IV SCH (11:34)
--- NOTE | 2017-12-27 14:06 | Progress Note ---
Subjective Date of Service: Dec 27, 2017. Subjective remains on abx, fluconazole. blood cultures negative, wbc remains elevated. afebrile. Problem List Medical Problems: (1) Altered mental status Status: Acute (2) Bradycardia Status: Acute (3) Bronchitis Status: Acute (4) Cellulitis of right hip Status: Acute (5) Expressive aphasia Status: Acute (6) Fall Status: Acute (7) Pneumonia Status: Acute (8) Possible urinary tract infection Status: Acute (9) Postoperative abscess Status: Acute (10) Receptive aphasia Status: Acute (11) Skin tear of right hand without complication Status: Acute Objective Vital Signs Date Time Temp Pulse Resp B/P (MAP) Pulse Ox O2 Delivery O2 Flow Rate FiO2 12/27/17 11:33 65 18 94 Nasal Cannula 3.0 12/27/17 08:00 100 Nasal Cannula 3.0 12/27/17 07:41 36.9 72 16 157/69 (98) 100 12/27/17 07:02 72 18 96 Nasal Cannula 3.0 12/27/17 00:00 Nasal Cannula 3.0 12/26/17 23:18 36.7 75 18 137/58 (84) 97 Nasal Cannula 3.0 12/26/17 19:22 74 18 93 Nasal Cannula 3.0 12/26/17 16:00 95 Nasal Cannula 3.0 12/26/17 15:58 36.8 79 20 125/61 (82) 95 Nasal Cannula 3.0 12/26/17 15:56 73 18 93 Nasal Cannula 3.0 Laboratory Results Item Value Date Time Blood Culture - Preliminary Resulted 12/22/17 1610 Blood NO GROWTH TO DATE. Gram Stain - Final Complete 12/22/17 1854 Skin Back, Upper Blood Culture - Preliminary Resulted 12/22/17 1445 Blood NO GROWTH TO DATE. Last 24 Hours Test 12/26/17 16:36 12/26/17 20:41 12/27/17 05:24 12/27/17 07:54 Bedside Glucose 278 mg/dl 311 mg/dl 117 mg/dl White Blood Count 27.65 K/uL Red Blood Count 2.64 M/uL Hemoglobin 7.9 g/dL Hematocrit 24.1 % Mean Corpuscular Volume 91.3 fL Mean Corpuscular Hemoglobin 29.9 pg Mean Corpuscular Hemoglobin Concent 32.8 g/dl RDW Standard Deviation 56.6 fL RDW Coefficient of Variation 17.0 % Platelet Count 306 K/uL Mean Platelet Volume 8.7 fL Sodium Level 137 mmol/L Potassium Level 4.3 mmol/L Chloride Level 101 mmol/L Carbon Dioxide Level 32 mmol/L Anion Gap 4.0 mmol/L Blood Urea Nitrogen 25 mg/dl Creatinine 0.78 mg/dl Est Creatinine Clear Calc Drug Dose 43.8 ml/min Estimated GFR () 78.7 Estimated GFR (Non- 67.9 BUN/Creatinine Ratio 32.5 Random Glucose 65 mg/dl Calcium Level 10.5 mg/dl Test 12/27/17 09:30 12/27/17 11:58 Vancomycin Level Trough 18.5 mcg/ml Bedside Glucose 151 mg/dl Assessment and Plan (1) Abscess of right hip Assessment & Plan: added fluconazole, continue abx. continue wound care.
[2017-12-27 15:55] VITALS: PULSE 67; O2SAT 94
--- NOTE | 2017-12-27 19:12 | Progress Note ---
Medicine Progress Note Date & Time of Visit: Dec 27, 2017 at 19:08. Subjective Pt was seen and examined Lying in bed with no distress Looks more awake today Denies any chest pain, palpitation and SOB Objective Last 8 Hrs Date Time Temp Pulse Resp B/P (MAP) Pulse Ox O2 Delivery O2 Flow Rate FiO2 12/27/17 18:35 Nasal Cannula 2.0 12/27/17 15:55 67 18 94 Nasal Cannula 3.0 12/27/17 11:33 65 18 94 Nasal Cannula 3.0 Physical Exam: General- No acute distress Head- atraumatic Eyes- PERRL, EOMI ENT- oropharynx clear Neck- supple, no JVD Lungs- decrease breath sound Heart- +Systolic murmur Abdomen- normal bowel sounds, soft Extremities- no calf tenderness, wound vac in right hip, no erythema and tenderness around the surrounding area of the hip Neuro- alert, oriented x 3; PERRL, EOMI Skin- warm & dry Laboratory Results: Last 24 Hours Test 12/26/17 20:41 12/27/17 05:24 12/27/17 07:54 12/27/17 09:30 Bedside Glucose 311 mg/dl 117 mg/dl White Blood Count 27.65 K/uL Red Blood Count 2.64 M/uL Hemoglobin 7.9 g/dL Hematocrit 24.1 % Mean Corpuscular Volume 91.3 fL Mean Corpuscular Hemoglobin 29.9 pg Mean Corpuscular Hemoglobin Concent 32.8 g/dl RDW Standard Deviation 56.6 fL RDW Coefficient of Variation 17.0 % Platelet Count 306 K/uL Mean Platelet Volume 8.7 fL Sodium Level 137 mmol/L Potassium Level 4.3 mmol/L Chloride Level 101 mmol/L Carbon Dioxide Level 32 mmol/L Anion Gap 4.0 mmol/L Blood Urea Nitrogen 25 mg/dl Creatinine 0.78 mg/dl Est Creatinine Clear Calc Drug Dose 43.8 ml/min Estimated GFR () 78.7 Estimated GFR (Non- 67.9 BUN/Creatinine Ratio 32.5 Random Glucose 65 mg/dl Calcium Level 10.5 mg/dl Vancomycin Level Trough 18.5 mcg/ml Test 12/27/17 11:58 12/27/17 17:06 Bedside Glucose 151 mg/dl 136 mg/dl Assessment & Plan Leukocytosis Possible related to postoperative wound right hip and Stage III pressure ulcer left foot CT right LE showed Interval development of periostitis with heterotopic ossifications adjacent to the anterolateral proximal right femoral shaft along with ill-defined fluid collections adjacent to the proximal femoral shaft and posterior lateral to the femoral head, possibly reflecting abscess formations as above with areas of deep tissue air. Moderate subcutaneous edema with skin thickening about the right thigh suggests cellulitis WBC on admission 21K WBC continue to elevate at 25k Afebrile Wound cx growth coag neg staph and tawny albicans On Cefepime and Vanco IV ID on board recommended to continue abx and adding fluconazole 100mg po s/p wound debridement of left foot ulcer by Dr. Moralez Continue wound vac in the right hip Wound doctor recommended to change wound vac 3xweekly continue monitor CBC case discussed with radiologist for possible CT guided aspiration of right hip radiology reviewed the image and does not see much loculated collection for aspiration Will get an U/S of the right hip to check for collection, if present will consult radiologist for aspiration 12/27 WBC continue to increase right hip u/s No evidence for a large drainable solitary simple fluid pocket. 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 Leukocytosis from malignancy should be considered once infectious processes worked up or ruled out ALTERED MENTAL STATUS encephalopathy secondary to infection vs dementia Stable HYPOXIA / Pleural effusions / CHF -CT chest 12/22/17: Small to moderate sized bilateral pleural effusions are noted in addition to left greater than right bilateral lower lobe consolidation and multifocal lower lobe mucous plugging. Only a minimal portion of the left lower lobe is aerated. These findings suggest atelectasis with superimposed pneumonia -is already on multiple antibiotics -is given incentive spirometry but unlikely to use without assistance, nursing orders to assist patient with incentive spirometer -Supplemental O2 as needed. -November 2017, Ejection Fraction = 60-65%, grade I diastolic dysfunction -patient was on IV lasix BID to reduce fluid overload in lung initially but has needed IV fluids as more hypernatremic, IV fluids stopped today and switch to oral lasix 12/27 stable Continue lasix 20mg daily Will monitor for sign of fluid overload Stable HYPOKALEMIA K stable Continue potassium supplement Monitor BMP Protein-Calorie Malnutrition encouraged nursing staff to help patient with feeding HYPERTENSION Continue amlodipine and clonidine. BP stable ASCENDING THORACIC ANEURYSM CT scan showed fusiform aneurysmal dilation of the ascending thoracic aorta redemonstrated 4.3 cm Continue follow up as an outpatient DM TYPE 2 Hemoglobin A1c 7.6 on 11/17/17. Basal bolus insulin therapy with Lantus + NovoLog per protocol. Monitor BS VTE PROPHYLAXIS SQ heparin. RESUSCITATION STATUS DNR DISPOSITION: resident of [facility]. Family and next of kin Tyree [phone] helps with medical decision making Current Inpatient Medications: Current Inpatient Medications Medications (Trade) Dose Ordered Sig/Zaina Route Start Time Stop Time Status Last Admin Dose Admin Heparin Sodium (Porcine) (Heparin Sq 5000 Unit/0.5ml) 5,000 unit Q12 SQ 12/22/17 21:00 01/21/18 20:59 12/27/17 10:16 5,000 UNIT Acetaminophen (Tylenol Tab) 650 mg Q4H PRN PO 12/22/17 18:45 01/21/18 18:44 Amlodipine Besylate (Norvasc Tab) 10 mg DAILY PO 12/23/17 08:00 01/22/18 08:59 12/27/17 09:34 10 MG Aspirin (Ecotrin Tab) 81 mg BIDM PO 12/23/17 08:00 01/22/18 07:59 12/27/17 18:00 81 MG Cholecalciferol (Vitamin D Tab) 1,000 inter.unit DAILY PO 12/23/17 08:00 01/22/18 08:59 12/27/17 09:33 1,000 INTER.UNIT Citalopram Hydrobromide (celeXA TAB) 20 mg HS PO 12/22/17 21:00 01/21/18 20:59 12/26/17 20:42 20 MG Clonidine HCl (Catapres Tab) 0.1 mg BID PO 12/22/17 20:00 01/21/18 20:59 12/27/17 09:33 0.1 MG Cyanocobalamin (Vitamin B-12 Tab) 100 mcg DAILY PO 12/23/17 08:00 01/22/18 08:59 12/27/17 09:33 100 MCG Folic Acid (Folvite Tab) 1 mg DAILY PO 12/23/17 08:00 01/22/18 08:59 12/27/17 09:33 1 MG Albuterol/ Ipratropium (Duoneb) 3 ml QIDR INH 12/22/17 20:00 01/21/18 19:59 12/27/17 15:55 3 ML Senna/Docusate Sodium (Senokot S Tab) 2 tab BID PO 12/22/17 20:00 01/21/18 20:59 12/27/17 09:33 2 TAB Simvastatin (Zocor Tab) 20 mg QPM PO 12/22/17 21:00 01/21/18 20:59 12/26/17 20:41 20 MG Glucose (Glucose 40% Gel) 15-30 GRAMS 15 GRAMS... UD PRN PO 12/22/17 20:15 01/21/18 20:14 Glucose (Glucose Chew Tab) 4-8 Tablets 4 Tabl... UD PRN PO 12/22/17 20:15 01/21/18 20:14 Dextrose (Dextrose 50% 50ML Syringe) 25-50ML OF 50% DW IV FOR... UD PRN IV 12/22/17 20:15 01/21/18 20:14 Glucagon (Glucagon Inj) 1 mg UD PRN SQ 12/22/17 20:15 01/21/18 20:14 Miscellaneous Information (Consult) 1 ea UD PRN N/A 12/23/17 01:45 01/22/18 01:44 Potassium Chloride (Klor-Con Tab) 20 meq BID PO 12/23/17 08:00 01/22/18 07:59 12/27/17 09:34 20 MEQ Cefepime HCl 2000 mg/Syringe 20 ml @ 5 mls/min Q24H IV 12/23/17 06:00 01/02/18 05:59 12/27/17 05:29 5 MLS/MIN Cefepime HCl (Consult) 1 ea UD PRN N/A 12/23/17 04:00 01/22/18 03:59 Heparin Sodium (Porcine) (Heparin 10 Unit/ ml 5 ml Flush) 5 ml PRN PRN FLUSH 12/23/17 05:15 01/22/18 05:14 12/27/17 14:27 5 ML Enteral Nutritional Formula (Boost Glucose Control) 1 can TIDM PO 12/23/17 17:00 01/22/18 16:59 12/27/17 18:00 1 CAN Furosemide (Lasix Tab) 20 mg QAM PO 12/25/17 08:00 01/24/18 07:59 12/27/17 09:33 20 MG Miconazole Nitrate (Desenex Powder) 1 appln UD PRN EXT 12/25/17 09:45 01/24/18 09:44 Fluconazole (Diflucan Tab) 100 mg QAM PO 12/26/17 08:00 01/05/18 07:59 12/27/17 09:34 100 MG Sodium Chloride ([place] Nasal [place]) 1 sprays BID PRN NA 12/25/17 19:45 01/24/18 19:44 12/25/17 20:45 1 SPRAYS Menthol (Nice Kelly) 1 kelly PRN PRN KELLY 12/25/17 20:00 01/24/18 19:59 12/25/17 20:45 1 KELLY Vancomycin HCl 1250 mg/Sodium Chloride 275 ml @ 125 mls/hr Q36H IV 12/27/17 11:00 01/06/18 10:59 12/27/17 11:34 125 MLS/HR Insulin Aspart (novoLOG ASPART) SLIDING SCALE G... ACHS SC 12/27/17 06:30 01/22/18 06:29 12/27/17 18:03 1 UNITS Insulin Glargine (Lantus Solostar Pen) 12 units BID SC 12/27/17 08:00 01/21/18 20:59 12/27/17 10:16 12 UNITS
[2017-12-27] MEDS: SIMVASTATIN 20 MG TAB PO SCH (21:48)
[2017-12-27] MEDS: CITALOPRAM 20 MG TAB PO SCH (21:48)
[2017-12-28] VITALS (8 sets, daily range): BP systolic 135–168; BP diastolic 63–70; PULSE 64–83; TEMP 36.8–37; O2SAT 94–98
[2017-12-28] MEDS: CEFEPIME IV 2,000 MG in SYRINGE 7.5 ML IV SCH (05:24)
[2017-12-28 06:18] LABS: HEMATOCRIT 23.8 % (37-47); HEMOGLOBIN 7.8 g/dL (12.0-16.0); MEAN CELL VOLUME 91.9 fL (80-100); MEAN CORPUSCULAR HEMOGLOBIN 30.1 pg (25-34); MEAN CORPUSCULAR HGB CONC 32.8 g/dl (32-36); MEAN PLATELET VOLUME 9.2 fL (7.4-10.4); PLATELET COUNT 326 K/uL (130-400); RED CELL DISTRIBUTION WIDTH SD 56.2 fL (36.4-46.3); WHITE BLOOD COUNT 34.88 K/uL (4.8-10.8)
[2017-12-28 06:36] LABS: CALCIUM 10.9 mg/dl (8.5-10.1); CREATININE 0.78 mg/dl (0.60-1.20); POTASSIUM 3.9 mmol/L (3.5-5.1)
[2017-12-28] MEDS: ALBUT/IPRATROP 3MG/0.5MG NEB 3 ML VIAL INH SCH ×4 (07:15→19:40)
[2017-12-28] MEDS ORDERED: VANCOMYCIN TROUGH ONE (09:30)
[2017-12-28] MEDS: INSULIN ASPART 100 UNITS/ML 3 ML PEN SC SCH ×4 (10:00→21:52)
[2017-12-28] MEDS: BOOST GLUCOSE CONTROL PO SCH ×3 (10:00→18:27)
[2017-12-28] MEDS: DOCUSATE SODIUM/SENNA 50/8.6MG TAB PO SCH ×2 (10:00→21:51)
[2017-12-28] MEDS: CHOLECALCIFEROL 1000 INTER.UNIT TAB PO SCH (10:01)
[2017-12-28] MEDS: FLUCONAZOLE 100 MG TAB PO SCH (10:01)
[2017-12-28] MEDS: FUROSEMIDE 20 MG TAB PO SCH (10:01)
[2017-12-28] MEDS: CYANOCOBALAMIN 100 MCG TAB (VIT B-12) PO SCH (10:01)
[2017-12-28] MEDS: ASPIRIN 81 MG ECTAB PO SCH ×2 (10:01→18:28)
[2017-12-28] MEDS: AMLODIPINE BESYLATE 5 MG TAB PO SCH (10:01)
[2017-12-28] MEDS: POTASSIUM CHLORIDE 20 MEQ TABCR PO SCH ×2 (10:01→21:50)
[2017-12-28] MEDS: CLONIDINE HCL 0.1 MG TAB PO SCH ×2 (10:02→21:51)
[2017-12-28] MEDS: HEPARIN SOD 5000 UNIT/0.5 ML CARP SQ SCH ×2 (10:05→21:54)
[2017-12-28] MEDS: INSULIN GLARGINE SOLOSTAR 100 UNITS/ML 3 ML PEN SC SCH ×2 (10:05→21:54)
--- NOTE | 2017-12-28 11:38 | Progress Note ---
Subjective Date of Service: Dec 28, 2017. Subjective wbc increased to day to 35, unclear etiology. blood cultures negative and final. tolerating abx. afebrile. spoke with primary. Problem List Medical Problems: (1) Altered mental status Status: Acute (2) Bradycardia Status: Acute (3) Bronchitis Status: Acute (4) Cellulitis of right hip Status: Acute (5) Expressive aphasia Status: Acute (6) Fall Status: Acute (7) Pneumonia Status: Acute (8) Possible urinary tract infection Status: Acute (9) Postoperative abscess Status: Acute (10) Receptive aphasia Status: Acute (11) Skin tear of right hand without complication Status: Acute Objective Vital Signs Date Time Temp Pulse Resp B/P (MAP) Pulse Ox O2 Delivery O2 Flow Rate FiO2 12/28/17 08:16 36.8 75 20 168/70 (102) 98 12/28/17 07:15 64 18 98 Nasal Cannula 3.0 12/28/17 00:03 36.8 71 20 158/63 (94) 98 Nasal Cannula 3.0 12/28/17 00:00 Nasal Cannula 2.0 12/27/17 18:35 Nasal Cannula 2.0 12/27/17 15:55 67 18 94 Nasal Cannula 3.0 Laboratory Results Item Value Date Time Gram Stain - Final Complete 12/22/17 1854 Skin Back, Upper Blood Culture - Final Complete 12/22/17 1610 Blood NO GROWTH Blood Culture - Final Complete 12/22/17 1445 Blood NO GROWTH Last 24 Hours Test 12/27/17 11:58 12/27/17 17:06 12/27/17 21:04 12/28/17 01:20 Bedside Glucose 151 mg/dl 136 mg/dl 86 mg/dl 61 mg/dl Test 12/28/17 01:36 12/28/17 03:20 12/28/17 05:27 12/28/17 07:52 Bedside Glucose 73 mg/dl 109 mg/dl 107 mg/dl White Blood Count 34.88 K/uL Red Blood Count 2.59 M/uL Hemoglobin 7.8 g/dL Hematocrit 23.8 % Mean Corpuscular Volume 91.9 fL Mean Corpuscular Hemoglobin 30.1 pg Mean Corpuscular Hemoglobin Concent 32.8 g/dl RDW Standard Deviation 56.2 fL RDW Coefficient of Variation 17.0 % Platelet Count 326 K/uL Mean Platelet Volume 9.2 fL Sodium Level 136 mmol/L Potassium Level 3.9 mmol/L Chloride Level 99 mmol/L Carbon Dioxide Level 31 mmol/L Anion Gap 6.0 mmol/L Blood Urea Nitrogen 23 mg/dl Creatinine 0.78 mg/dl Est Creatinine Clear Calc Drug Dose 43.8 ml/min Estimated GFR () 78.7 Estimated GFR (Non- 67.9 BUN/Creatinine Ratio 29.2 Random Glucose 74 mg/dl Calcium Level 10.9 mg/dl Test 12/28/17 11:17 Bedside Glucose 116 mg/dl Assessment and Plan (1) Abscess of right hip Assessment & Plan: added fluconazole, continue abx. continue wound care. (2) Leukocytosis Assessment & Plan: unclear etiology ? c diff, ? vulvar cancer, ? dvt
--- NOTE | 2017-12-28 15:08 | DIAGNOSTIC IMAGING REPORT ---
CHEST ONE VIEW PORTABLE CLINICAL HISTORY: Desaturation. COMPARISON STUDY: Chest radiograph and chest CT December 22, 2017. FINDINGS: A right PICC remains in place. There is no pneumothorax. Mild cardiomegaly is unchanged. Bilateral pleural effusions, left larger than the right, associated bibasilar opacities persist. These have slightly improved. Old deformity of the right humeral head and right glenohumeral joint is incidentally noted. IMPRESSION: 1. Bilateral pleural effusions and associated bibasilar opacities which may reflect atelectasis or consolidation, slightly improved since exam of December 22, 2017. 2. Pulmonary vascular congestion without overt edema. Electronically signed by: Tayo Arias M.D. 12/28/2017 3:06 PM Dictated Date/Time: 12/28/2017 3:03 PM
--- NOTE | 2017-12-28 16:13 | Progress Note ---
Medicine Progress Note Date & Time of Visit: Dec 28, 2017 at 15:36. Subjective Pt was seen and examined Lying in bed with no distress with daughter in law at bedside Pt is confused Low appetite denies any pain in the hip Objective Last 8 Hrs Date Time Temp Pulse Resp B/P (MAP) Pulse Ox O2 Delivery O2 Flow Rate FiO2 12/28/17 15:34 37.0 83 20 151/66 (94) 95 12/28/17 11:13 64 18 98 Nasal Cannula 3.0 12/28/17 08:40 Nasal Cannula 2.0 12/28/17 08:16 36.8 75 20 168/70 (102) 98 Physical Exam: General- No acute distress Head- atraumatic Eyes- PERRL, EOMI ENT- oropharynx clear Neck- supple, no JVD Lungs- decrease breath sound Heart- +Systolic murmur Abdomen- normal bowel sounds, soft Extremities- no calf tenderness, wound vac in right hip, no erythema and tenderness around the surrounding area of the hip Neuro- alert, awake, confused Skin- warm & dry Laboratory Results: Last 24 Hours Test 12/27/17 17:06 12/27/17 21:04 12/28/17 01:20 12/28/17 01:36 Bedside Glucose 136 mg/dl 86 mg/dl 61 mg/dl 73 mg/dl Test 12/28/17 03:20 12/28/17 05:27 12/28/17 07:52 12/28/17 11:17 Bedside Glucose 109 mg/dl 107 mg/dl 116 mg/dl White Blood Count 34.88 K/uL Red Blood Count 2.59 M/uL Hemoglobin 7.8 g/dL Hematocrit 23.8 % Mean Corpuscular Volume 91.9 fL Mean Corpuscular Hemoglobin 30.1 pg Mean Corpuscular Hemoglobin Concent 32.8 g/dl RDW Standard Deviation 56.2 fL RDW Coefficient of Variation 17.0 % Platelet Count 326 K/uL Mean Platelet Volume 9.2 fL Sodium Level 136 mmol/L Potassium Level 3.9 mmol/L Chloride Level 99 mmol/L Carbon Dioxide Level 31 mmol/L Anion Gap 6.0 mmol/L Blood Urea Nitrogen 23 mg/dl Creatinine 0.78 mg/dl Est Creatinine Clear Calc Drug Dose 43.8 ml/min Estimated GFR () 78.7 Estimated GFR (Non- 67.9 BUN/Creatinine Ratio 29.2 Random Glucose 74 mg/dl Calcium Level 10.9 mg/dl Assessment & Plan Leukocytosis Possible related to postoperative wound right hip and Stage III pressure ulcer left foot CT right LE showed Interval development of periostitis with heterotopic ossifications adjacent to the anterolateral proximal right femoral shaft along with ill-defined fluid collections adjacent to the proximal femoral shaft and posterior lateral to the femoral head, possibly reflecting abscess formations as above with areas of deep tissue air. Moderate subcutaneous edema with skin thickening about the right thigh suggests cellulitis WBC on admission 21K WBC continue to elevate at 25k Afebrile Wound cx growth coag neg staph and tawny albicans On Cefepime and Vanco IV ID on board recommended to continue abx and adding fluconazole 100mg po s/p wound debridement of left foot ulcer by Dr. Moralez Continue wound vac in the right hip Wound doctor recommended to change wound vac 3xweekly continue monitor CBC case discussed with radiologist for possible CT guided aspiration of right hip radiology reviewed the image and does not see much loculated collection for aspiration Will get an U/S of the right hip to check for collection, if present will consult radiologist for aspiration 12/28 WBC worsening to 35K Etiology unknown Possible related to vulvar malignancy vs infection Afebrile right hip u/s done yesterday showed no evidence for a large drainable solitary simple fluid pocket. 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 Leukocytosis from malignancy should be considered once infectious processes worked up or ruled out Will consult oncology ALTERED MENTAL STATUS encephalopathy secondary to infection vs dementia worsening today HYPOXIA / Pleural effusions / CHF -CT chest 12/22/17: Small to moderate sized bilateral pleural effusions are noted in addition to left greater than right bilateral lower lobe consolidation and multifocal lower lobe mucous plugging. Only a minimal portion of the left lower lobe is aerated. These findings suggest atelectasis with superimposed pneumonia -is already on multiple antibiotics -is given incentive spirometry but unlikely to use without assistance, nursing orders to assist patient with incentive spirometer -Supplemental O2 as needed. -November 2017, Ejection Fraction = 60-65%, grade I diastolic dysfunction -patient was on IV lasix BID to reduce fluid overload in lung initially but has needed IV fluids as more hypernatremic, IV fluids stopped today and switch to oral lasix 12/28 CXR done today showed bilateral pleural effusions and associated bibasilar opacities which may reflect atelectasis or consolidation, slightly improved since exam of December 22, 2017. Pulmonary vascular congestion without overt edema. Continue lasix 20mg daily Stable HYPOKALEMIA K stable Continue potassium supplement Monitor BMP Protein-Calorie Malnutrition encouraged nursing staff to help patient with feeding HYPERTENSION Continue amlodipine and clonidine. BP stable ASCENDING THORACIC ANEURYSM CT scan showed fusiform aneurysmal dilation of the ascending thoracic aorta redemonstrated 4.3 cm Continue follow up as an outpatient DM TYPE 2 Hemoglobin A1c 7.6 on 11/17/17. Basal bolus insulin therapy with Lantus + NovoLog per protocol. Monitor BS VTE PROPHYLAXIS SQ heparin. RESUSCITATION STATUS DNR DISPOSITION: resident of [facility]. Family and next of kin Tyree [phone] helps with medical decision making Current Inpatient Medications: Current Inpatient Medications Medications (Trade) Dose Ordered Sig/Zaina Route Start Time Stop Time Status Last Admin Dose Admin Heparin Sodium (Porcine) (Heparin Sq 5000 Unit/0.5ml) 5,000 unit Q12 SQ 12/22/17 21:00 01/21/18 20:59 12/28/17 10:05 5,000 UNIT Acetaminophen (Tylenol Tab) 650 mg Q4H PRN PO 12/22/17 18:45 01/21/18 18:44 Amlodipine Besylate (Norvasc Tab) 10 mg DAILY PO 12/23/17 08:00 01/22/18 08:59 12/28/17 10:01 10 MG Aspirin (Ecotrin Tab) 81 mg BIDM PO 12/23/17 08:00 01/22/18 07:59 12/28/17 10:01 81 MG Cholecalciferol (Vitamin D Tab) 1,000 inter.unit DAILY PO 12/23/17 08:00 01/22/18 08:59 12/28/17 10:01 1,000 INTER.UNIT Citalopram Hydrobromide (celeXA TAB) 20 mg HS PO 12/22/17 21:00 01/21/18 20:59 12/27/17 21:48 20 MG Clonidine HCl (Catapres Tab) 0.1 mg BID PO 12/22/17 20:00 01/21/18 20:59 12/28/17 10:02 0.1 MG Cyanocobalamin (Vitamin B-12 Tab) 100 mcg DAILY PO 12/23/17 08:00 01/22/18 08:59 12/28/17 10:01 100 MCG Folic Acid (Folvite Tab) 1 mg DAILY PO 12/23/17 08:00 01/22/18 08:59 12/28/17 10:01 1 MG Albuterol/ Ipratropium (Duoneb) 3 ml QIDR INH 12/22/17 20:00 01/21/18 19:59 12/28/17 11:13 3 ML Senna/Docusate Sodium (Senokot S Tab) 2 tab BID PO 12/22/17 20:00 01/21/18 20:59 12/28/17 10:00 2 TAB Simvastatin (Zocor Tab) 20 mg QPM PO 12/22/17 21:00 01/21/18 20:59 12/27/17 21:48 20 MG Glucose (Glucose 40% Gel) 15-30 GRAMS 15 GRAMS... UD PRN PO 12/22/17 20:15 01/21/18 20:14 Glucose (Glucose Chew Tab) 4-8 Tablets 4 Tabl... UD PRN PO 12/22/17 20:15 01/21/18 20:14 Dextrose (Dextrose 50% 50ML Syringe) 25-50ML OF 50% DW IV FOR... UD PRN IV 12/22/17 20:15 01/21/18 20:14 Glucagon (Glucagon Inj) 1 mg UD PRN SQ 12/22/17 20:15 01/21/18 20:14 Miscellaneous Information (Consult) 1 ea UD PRN N/A 12/23/17 01:45 01/22/18 01:44 Potassium Chloride (Klor-Con Tab) 20 meq BID PO 12/23/17 08:00 01/22/18 07:59 12/28/17 10:01 20 MEQ Cefepime HCl 2000 mg/Syringe 20 ml @ 5 mls/min Q24H IV 12/23/17 06:00 01/02/18 05:59 12/28/17 05:24 5 MLS/MIN Cefepime HCl (Consult) 1 ea UD PRN N/A 12/23/17 04:00 4/10/18 03:59 Heparin Sodium (Porcine) (Heparin 10 Unit/ ml 5 ml Flush) 5 ml PRN PRN FLUSH 12/23/17 05:15 01/22/18 05:14 12/28/17 05:24 5 ML Enteral Nutritional Formula (Boost Glucose Control) 1 can TIDM PO 12/23/17 17:00 01/22/18 16:59 12/27/17 18:00 1 CAN Furosemide (Lasix Tab) 20 mg QAM PO 12/25/17 08:00 01/24/18 07:59 12/28/17 10:01 20 MG Miconazole Nitrate (Desenex Powder) 1 appln UD PRN EXT 12/25/17 09:45 01/24/18 09:44 Fluconazole (Diflucan Tab) 100 mg QAM PO 12/26/17 08:00 01/05/18 07:59 12/28/17 10:01 100 MG Sodium Chloride ([place] Nasal [place]) 1 sprays BID PRN NA 12/25/17 19:45 01/24/18 19:44 12/25/17 20:45 1 SPRAYS Menthol (Nice Kelly) 1 kelly PRN PRN KELLY 12/25/17 20:00 01/24/18 19:59 12/25/17 20:45 1 KELLY Vancomycin HCl 1250 mg/Sodium Chloride 275 ml @ 125 mls/hr Q36H IV 12/27/17 11:00 01/06/18 10:59 12/27/17 11:34 125 MLS/HR Insulin Aspart (novoLOG ASPART) SLIDING SCALE G... ACHS SC 12/27/17 06:30 01/22/18 06:29 12/28/17 13:47 3 UNITS Insulin Glargine (Lantus Solostar Pen) 12 units BID SC 12/27/17 08:00 01/21/18 20:59 12/28/17 10:05 12 UNITS
[2017-12-28] MEDS: SIMVASTATIN 20 MG TAB PO SCH (21:49)
[2017-12-28] MEDS: CITALOPRAM 20 MG TAB PO SCH (21:50)
[2017-12-28] MEDS: VANCOMYCIN IV 1,250 MG in SODIUM CHLORIDE 0.9% 250ML 250 ML IV SCH (23:00)
[2017-12-29] VITALS (8 sets, daily range): BP systolic 115–153; BP diastolic 61–72; PULSE 68–80; TEMP 36.4–37; O2SAT 94–99
[2017-12-29] MEDS: CEFEPIME IV 2,000 MG in SYRINGE 7.5 ML IV SCH (06:10)
[2017-12-29 07:00] LABS: HEMATOCRIT 26.8 % (37-47); HEMOGLOBIN 8.5 g/dL (12.0-16.0); MEAN CELL VOLUME 92.4 fL (80-100); MEAN CORPUSCULAR HEMOGLOBIN 29.3 pg (25-34); MEAN CORPUSCULAR HGB CONC 31.7 g/dl (32-36); MEAN PLATELET VOLUME 9.4 fL (7.4-10.4); PLATELET COUNT 349 K/uL (130-400); RED CELL DISTRIBUTION WIDTH CV 16.8 % (11.5-14.5); WHITE BLOOD COUNT 24.56 K/uL (4.8-10.8)
[2017-12-29] MEDS: ALBUT/IPRATROP 3MG/0.5MG NEB 3 ML VIAL INH SCH ×4 (07:00→18:55)
[2017-12-29 07:21] LABS: CREATININE 1.06 mg/dl (0.60-1.20)
[2017-12-29 07:23] LABS: BASO % 0.2 %; BASO ABS # 0.04 K/uL (0-0.2); EOS % 2.4 %; LYMPH % 8.3 %; LYMPH ABS # 2.03 K/uL (1.2-3.4); MONO % 4.4 %; MONO ABS # 1.08 K/uL (0.11-0.59); NEUT % 83.9 %; NEUT ABS # 20.61 K/uL (1.4-6.5)
[2017-12-29] MEDS: INSULIN ASPART 100 UNITS/ML 3 ML PEN SC SCH ×4 (07:30→20:37)
[2017-12-29] MEDS: BOOST GLUCOSE CONTROL PO SCH ×3 (08:43→17:00)
[2017-12-29] MEDS: CLONIDINE HCL 0.1 MG TAB PO SCH ×2 (08:43→20:00)
[2017-12-29] MEDS: CHOLECALCIFEROL 1000 INTER.UNIT TAB PO SCH (08:44)
[2017-12-29] MEDS: AMLODIPINE BESYLATE 5 MG TAB PO SCH (08:44)
[2017-12-29] MEDS: CYANOCOBALAMIN 100 MCG TAB (VIT B-12) PO SCH (08:44)
[2017-12-29] MEDS: FUROSEMIDE 20 MG TAB PO SCH (08:44)
[2017-12-29] MEDS: FLUCONAZOLE 100 MG TAB PO SCH (08:44)
[2017-12-29] MEDS: POTASSIUM CHLORIDE 20 MEQ TABCR PO SCH ×2 (08:44→20:00)
[2017-12-29] MEDS: ASPIRIN 81 MG ECTAB PO SCH ×2 (08:44→17:00)
[2017-12-29] MEDS: DOCUSATE SODIUM/SENNA 50/8.6MG TAB PO SCH ×2 (08:44→20:00)
[2017-12-29] MEDS ORDERED: D5W AND NSS 500 ML IV SCH (10:00)
[2017-12-29] MEDS: HEPARIN SOD 5000 UNIT/0.5 ML CARP SQ SCH ×2 (10:33→20:56)
--- NOTE | 2017-12-29 16:57 | Progress Note ---
Medicine Progress Note Date & Time of Visit: Dec 29, 2017 at 16:51. Subjective Pt was seen and examined Lying in bed feeling drowsy Pt cannot keep her eyes open she was more awake yesterday Objective Last 8 Hrs Date Time Temp Pulse Resp B/P (MAP) Pulse Ox O2 Delivery O2 Flow Rate FiO2 12/29/17 15:31 36.9 80 20 115/72 (86) 99 12/29/17 14:40 71 18 96 Nasal Cannula 2.0 12/29/17 11:20 68 18 98 Nasal Cannula 3.0 Physical Exam: General- No acute distress Head- atraumatic Eyes- PERRL, EOMI ENT- oropharynx clear Neck- supple, no JVD Lungs- decrease breath sound Heart- +Systolic murmur Abdomen- normal bowel sounds, soft Extremities- no calf tenderness, wound vac in right hip, no erythema and tenderness around the surrounding area of the hip Neuro- alert, awake, confused Skin- warm & dry Laboratory Results: Last 24 Hours Test 12/28/17 20:15 12/29/17 06:28 12/29/17 07:26 12/29/17 08:35 Bedside Glucose 96 mg/dl 70 mg/dl 135 mg/dl White Blood Count 24.56 K/uL Red Blood Count 2.90 M/uL Hemoglobin 8.5 g/dL Hematocrit 26.8 % Mean Corpuscular Volume 92.4 fL Mean Corpuscular Hemoglobin 29.3 pg Mean Corpuscular Hemoglobin Concent 31.7 g/dl Platelet Count 349 K/uL Mean Platelet Volume 9.4 fL Neutrophils (%) (Auto) 83.9 % Lymphocytes (%) (Auto) 8.3 % Monocytes (%) (Auto) 4.4 % Eosinophils (%) (Auto) 2.4 % Basophils (%) (Auto) 0.2 % Neutrophils # (Auto) 20.61 K/uL Lymphocytes # (Auto) 2.03 K/uL Monocytes # (Auto) 1.08 K/uL Eosinophils # (Auto) 0.60 K/uL Basophils # (Auto) 0.04 K/uL RDW Standard Deviation 56.0 fL RDW Coefficient of Variation 16.8 % Immature Granulocyte % (Auto) 0.8 % Immature Granulocyte # (Auto) 0.20 K/uL Echinocytes 1+ Creatinine 1.06 mg/dl Est Creatinine Clear Calc Drug Dose 32.3 ml/min Estimated GFR () 54.3 Estimated GFR (Non- 46.8 Test 12/29/17 11:28 Bedside Glucose 111 mg/dl Assessment & Plan Leukocytosis Possible related to postoperative wound right hip and Stage III pressure ulcer left foot CT right LE showed Interval development of periostitis with heterotopic ossifications adjacent to the anterolateral proximal right femoral shaft along with ill-defined fluid collections adjacent to the proximal femoral shaft and posterior lateral to the femoral head, possibly reflecting abscess formations as above with areas of deep tissue air. Moderate subcutaneous edema with skin thickening about the right thigh suggests cellulitis WBC on admission 21K WBC continue to elevate at 25k Afebrile Wound cx growth coag neg staph and tawny albicans On Cefepime and Vanco IV ID on board recommended to continue abx and adding fluconazole 100mg po s/p wound debridement of left foot ulcer by Dr. Moralez Continue wound vac in the right hip Wound doctor recommended to change wound vac 3xweekly continue monitor CBC case discussed with radiologist for possible CT guided aspiration of right hip radiology reviewed the image and does not see much loculated collection for aspiration Will get an U/S of the right hip to check for collection, if present will consult radiologist for aspiration 12/29 WBC decreased to 24K Etiology unknown Possible related to vulvar malignancy vs infection Afebrile right hip u/s done yesterday showed no evidence for a large drainable solitary simple fluid pocket. case discussed with ID and ortho team Continue cefepime/Vanco/fluconazole as per ID bone scan pending continue monitor cbc ALTERED MENTAL STATUS encephalopathy secondary to infection Need to r/o CVA Has been very sleeping today unable to stay awake Will get CT head Hold oral med for now. 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 Leukocytosis from malignancy should be considered once infectious processes worked up or ruled out Consider oncology consult if WBC worsening HYPOXIA / Pleural effusions / CHF -CT chest 12/22/17: Small to moderate sized bilateral pleural effusions are noted in addition to left greater than right bilateral lower lobe consolidation and multifocal lower lobe mucous plugging. Only a minimal portion of the left lower lobe is aerated. These findings suggest atelectasis with superimposed pneumonia -is already on multiple antibiotics -is given incentive spirometry but unlikely to use without assistance, nursing orders to assist patient with incentive spirometer -Supplemental O2 as needed. -November 2017, Ejection Fraction = 60-65%, grade I diastolic dysfunction -patient was on IV lasix BID to reduce fluid overload in lung initially but has needed IV fluids as more hypernatremic, IV fluids stopped today and switch to oral lasix 12/29 CXR done today showed bilateral pleural effusions and associated bibasilar opacities which may reflect atelectasis or consolidation, slightly improved since exam of December 22, 2017. Pulmonary vascular congestion without overt edema. Continue lasix 20mg daily Stable HYPOKALEMIA K stable Continue potassium supplement Monitor BMP Protein-Calorie Malnutrition encouraged nursing staff to help patient with feeding HYPERTENSION Continue amlodipine and clonidine. BP stable ASCENDING THORACIC ANEURYSM CT scan showed fusiform aneurysmal dilation of the ascending thoracic aorta redemonstrated 4.3 cm Continue follow up as an outpatient DM TYPE 2 Hemoglobin A1c 7.6 on 11/17/17. Basal bolus insulin therapy with Lantus + NovoLog per protocol. Monitor BS VTE PROPHYLAXIS SQ heparin. RESUSCITATION STATUS DNR DISPOSITION: resident of [facility]. Family and next of kin Tyree [phone] helps with medical decision making Current Inpatient Medications: Current Inpatient Medications Medications (Trade) Dose Ordered Sig/Zaina Route Start Time Stop Time Status Last Admin Dose Admin Heparin Sodium (Porcine) (Heparin Sq 5000 Unit/0.5ml) 5,000 unit Q12 SQ 12/22/17 21:00 01/21/18 20:59 12/29/17 10:33 5,000 UNIT Acetaminophen (Tylenol Tab) 650 mg Q4H PRN PO 12/22/17 18:45 01/21/18 18:44 Amlodipine Besylate (Norvasc Tab) 10 mg DAILY PO 12/23/17 08:00 01/22/18 08:59 12/28/17 10:01 10 MG Aspirin (Ecotrin Tab) 81 mg BIDM PO 12/23/17 08:00 01/22/18 07:59 12/28/17 18:28 81 MG Cholecalciferol (Vitamin D Tab) 1,000 inter.unit DAILY PO 12/23/17 08:00 01/22/18 08:59 12/28/17 10:01 1,000 INTER.UNIT Citalopram Hydrobromide (celeXA TAB) 20 mg HS PO 12/22/17 21:00 01/21/18 20:59 12/28/17 21:50 20 MG Clonidine HCl (Catapres Tab) 0.1 mg BID PO 12/22/17 20:00 01/21/18 20:59 12/28/17 21:51 0.1 MG Cyanocobalamin (Vitamin B-12 Tab) 100 mcg DAILY PO 12/23/17 08:00 01/22/18 08:59 12/28/17 10:01 100 MCG Folic Acid (Folvite Tab) 1 mg DAILY PO 12/23/17 08:00 01/22/18 08:59 12/28/17 10:01 1 MG Albuterol/ Ipratropium (Duoneb) 3 ml QIDR INH 12/22/17 20:00 01/21/18 19:59 12/29/17 14:40 3 ML Senna/Docusate Sodium (Senokot S Tab) 2 tab BID PO 12/22/17 20:00 01/21/18 20:59 12/28/17 21:51 2 TAB Simvastatin (Zocor Tab) 20 mg QPM PO 12/22/17 21:00 01/21/18 20:59 12/28/17 21:49 20 MG Glucose (Glucose 40% Gel) 15-30 GRAMS 15 GRAMS... UD PRN PO 12/22/17 20:15 01/21/18 20:14 Glucose (Glucose Chew Tab) 4-8 Tablets 4 Tabl... UD PRN PO 12/22/17 20:15 01/21/18 20:14 Dextrose (Dextrose 50% 50ML Syringe) 25-50ML OF 50% DW IV FOR... UD PRN IV 12/22/17 20:15 01/21/18 20:14 12/29/17 08:06 25 ML Glucagon (Glucagon Inj) 1 mg UD PRN SQ 12/22/17 20:15 01/21/18 20:14 Miscellaneous Information (Consult) 1 ea UD PRN N/A 12/23/17 01:45 01/22/18 01:44 Potassium Chloride (Klor-Con Tab) 20 meq BID PO 12/23/17 08:00 01/22/18 07:59 12/28/17 21:50 20 MEQ Cefepime HCl 2000 mg/Syringe 20 ml @ 5 mls/min Q24H IV 12/23/17 06:00 01/02/18 05:59 12/29/17 06:10 5 MLS/MIN Cefepime HCl (Consult) 1 ea UD PRN N/A 12/23/17 04:00 01/22/18 03:59 Heparin Sodium (Porcine) (Heparin 10 Unit/ ml 5 ml Flush) 5 ml PRN PRN FLUSH 12/23/17 05:15 01/22/18 05:14 12/29/17 08:12 5 ML Enteral Nutritional Formula (Boost Glucose Control) 1 can TIDM PO 12/23/17 17:00 01/22/18 16:59 12/28/17 18:27 1 CAN Furosemide (Lasix Tab) 20 mg QAM PO 12/25/17 08:00 01/24/18 07:59 12/28/17 10:01 20 MG Miconazole Nitrate (Desenex Powder) 1 appln UD PRN EXT 12/25/17 09:45 01/24/18 09:44 Fluconazole (Diflucan Tab) 100 mg QAM PO 12/26/17 08:00 01/05/18 07:59 12/28/17 10:01 100 MG Sodium Chloride ([place] Nasal [place]) 1 sprays BID PRN NA 12/25/17 19:45 01/24/18 19:44 12/25/17 20:45 1 SPRAYS Menthol (Nice Kelly) 1 kelly PRN PRN KELLY 12/25/17 20:00 01/24/18 19:59 12/25/17 20:45 1 KELLY Vancomycin HCl 1250 mg/Sodium Chloride 275 ml @ 125 mls/hr Q36H IV 12/27/17 11:00 01/06/18 10:59 Future Hold 12/28/17 23:00 125 MLS/HR Insulin Aspart (novoLOG ASPART) SLIDING SCALE G... ACHS SC 12/27/17 06:30 01/22/18 06:29 12/28/17 18:32 1 UNITS Dextrose/Sodium Chloride 500 ml @ 40 mls/hr [id number] IV 12/29/17 10:00 12/29/17 22:29 12/29/17 10:36 40 MLS/HR
--- NOTE | 2017-12-29 18:12 | DIAGNOSTIC IMAGING REPORT ---
HEAD WITHOUT CONTRAST (CT) CT DOSE: 537.48 mGy.cm HISTORY: Mental status change altered mental status TECHNIQUE: Multiaxial CT images of the head were performed without the use of intravenous contrast. A dose lowering technique was utilized adhering to the principles of ALARA. Comparison: 05/24/2016 Findings: Small air-fluid level within the left maxillary sinus. Moderate mucosal thickening of the left frontal and ethmoid sinuses. Mastoid air cells are clear. The calvarium and skull base are intact. The ventricles and sulci are within normal limits. There is no mass, hematoma, midline shift, or acute infarct. Old left frontal infarct. No new or interval findings. No acute intracranial hemorrhage. Impression: No acute intracranial abnormality. Old left parietal infarct. Sinusitis. The above report was generated using voice recognition software. It may contain grammatical, syntax or spelling errors. Electronically signed by: Gael Langley M.D. 12/29/2017 6:10 PM Dictated Date/Time: 12/29/2017 6:09 PM
[2017-12-29] MEDS: CITALOPRAM 20 MG TAB PO SCH (20:36)
[2017-12-29] MEDS: SIMVASTATIN 20 MG TAB PO SCH (20:36)
[2017-12-30] MEDS: CEFEPIME IV 2,000 MG in SYRINGE 7.5 ML IV SCH (05:16)
[2017-12-30] MEDS: ALBUT/IPRATROP 3MG/0.5MG NEB 3 ML VIAL INH SCH ×4 (07:00→19:17)
[2017-12-30 07:02] VITALS: PULSE 72; O2SAT 95
[2017-12-30 07:09] LABS: BASO % 0.2 %; BASO ABS # 0.05 K/uL (0-0.2); EOS % 3.1 %; EOS ABS # 0.65 K/uL (0-0.5); HEMATOCRIT 25.2 % (37-47); HEMOGLOBIN 8.1 g/dL (12.0-16.0); LYMPH ABS # 2.11 K/uL (1.2-3.4); MEAN CORPUSCULAR HEMOGLOBIN 29.9 pg (25-34); MEAN CORPUSCULAR HGB CONC 32.1 g/dl (32-36); MEAN PLATELET VOLUME 8.8 fL (7.4-10.4); MONO % 4.6 %; MONO ABS # 0.97 K/uL (0.11-0.59); NEUT % 81.2 %; NEUT ABS # 17.16 K/uL (1.4-6.5); PLATELET COUNT 361 K/uL (130-400); RED CELL DISTRIBUTION WIDTH CV 17.2 % (11.5-14.5); RED CELL DISTRIBUTION WIDTH SD 56.9 fL (36.4-46.3); WHITE BLOOD COUNT 21.14 K/uL (4.8-10.8)
[2017-12-30 07:36] VITALS: BP 154/60; PULSE 72; TEMP 36.9; O2SAT 96
[2017-12-30 07:37] LABS: CALCIUM 10.7 mg/dl (8.5-10.1); CREATININE 0.92 mg/dl (0.60-1.20)
[2017-12-30] MEDS: INSULIN ASPART 100 UNITS/ML 3 ML PEN SC SCH ×4 (07:52→22:17)
[2017-12-30] MEDS: BOOST GLUCOSE CONTROL PO SCH ×3 (07:52→17:00)
[2017-12-30] MEDS: ASPIRIN 81 MG ECTAB PO SCH ×2 (07:52→17:42)
[2017-12-30] MEDS: CLONIDINE HCL 0.1 MG TAB PO SCH ×2 (07:52→21:02)
[2017-12-30] MEDS: FLUCONAZOLE 100 MG TAB PO SCH (07:52)
[2017-12-30] MEDS: DOCUSATE SODIUM/SENNA 50/8.6MG TAB PO SCH ×2 (07:53→21:02)
[2017-12-30] MEDS: CYANOCOBALAMIN 100 MCG TAB (VIT B-12) PO SCH (07:53)
[2017-12-30] MEDS: CHOLECALCIFEROL 1000 INTER.UNIT TAB PO SCH (07:53)
[2017-12-30] MEDS: POTASSIUM CHLORIDE 20 MEQ TABCR PO SCH ×2 (07:53→21:02)
[2017-12-30] MEDS: FUROSEMIDE 20 MG TAB PO SCH (07:53)
[2017-12-30] MEDS: AMLODIPINE BESYLATE 5 MG TAB PO SCH (07:53)
[2017-12-30 11:08] VITALS: PULSE 84; O2SAT 97
--- NOTE | 2017-12-30 12:09 | Pharmacy Progress Note ---
Pharmacy Abx Dose Short Note Date of Service Dec 30, 2017. Assessment & Plan Item Value Date Time Vancomycin Level Trough 22.0 mcg/ml 12/30/17 1035 Creatinine 0.92 mg/dl 12/30/17 0637 Est Creatinine Clear Calc Drug Dose 37.2 ml/min 12/30/17 0637 Creatinine 1.06 mg/dl 12/29/17 0628 Est Creatinine Clear Calc Drug Dose 32.3 ml/min 12/29/17 0628 Creatinine 0.78 mg/dl 12/28/17 0527 Est Creatinine Clear Calc Drug Dose 43.8 ml/min 12/28/17 0527 Assessment 87 year old female receiving IV Vancomycin & Cefepime for treatment of cellulitis of right hip w/ abscess. po fluconazole added for wound culture with yeast. Fluconazole has been on hold las 2 AMs due to pt lethargy. Day # 9 of antimicrobial therapy as IN-PATIENT, pt was receiving Vancomycin 1250mg (~20MG/KG) IV Q36H at [facility]. Plan Vancomycin * Pt has a bump in Scr since yesterday (baseline Scr~0.7 previously). * Trough level of 22.0 mcg/mL is SUPRA-therapeutic. * Will hold dose due at 1100 today and administer 6 hours later (12/30/17 1800) to allow for more drug elimination. * Goal trough level 15 to 20 mcg/mL * Will recheck VANC random 320-am labs to guide subsequent redose (~36 hours after today's dose). * As Scr is trending down slightly since yesterday, I anticipate pt may be able to return to previous Vanc 1250mg IV every 36 hours? * Will consider VANC 1000-1250mg IV q 36 hours? Pharmacy will continue to follow and will adjust dose/frequency as necessary. Thank you.
[2017-12-30] MEDS: HEPARIN SOD 5000 UNIT/0.5 ML CARP SQ SCH ×2 (13:04→21:04)
[2017-12-30 14:11] VITALS: PULSE 79; O2SAT 97
[2017-12-30 14:51] VITALS: BP 145/64; PULSE 81; TEMP 37.4; O2SAT 91
--- NOTE | 2017-12-30 17:08 | Progress Note ---
Medicine Progress Note Date & Time of Visit: Dec 30, 2017 at 17:03. Subjective Pt was seen and examined Lying in bed with no distress Pt is more awake today and talking She had some drink today Denies any fever and chest pain Objective Last 8 Hrs Date Time Temp Pulse Resp B/P (MAP) Pulse Ox O2 Delivery O2 Flow Rate FiO2 12/30/17 14:51 37.4 81 20 145/64 (91) 91 12/30/17 14:11 79 16 97 Nasal Cannula 2.0 12/30/17 11:08 84 16 97 Nasal Cannula 2.0 Physical Exam: General- No acute distress Head- atraumatic Eyes- PERRL, EOMI ENT- oropharynx clear Neck- supple, no JVD Lungs- decrease breath sound Heart- +Systolic murmur Abdomen- normal bowel sounds, soft Extremities- no calf tenderness, wound vac in right hip, no erythema and tenderness around the surrounding area of the hip Neuro- alert, awake, confused Skin- warm & dry Laboratory Results: Last 24 Hours Test 12/29/17 20:13 12/30/17 06:37 12/30/17 07:18 12/30/17 10:35 Bedside Glucose 104 mg/dl 104 mg/dl White Blood Count 21.14 K/uL Red Blood Count 2.71 M/uL Hemoglobin 8.1 g/dL Hematocrit 25.2 % Mean Corpuscular Volume 93.0 fL Mean Corpuscular Hemoglobin 29.9 pg Mean Corpuscular Hemoglobin Concent 32.1 g/dl Platelet Count 361 K/uL Mean Platelet Volume 8.8 fL Neutrophils (%) (Auto) 81.2 % Lymphocytes (%) (Auto) 10.0 % Monocytes (%) (Auto) 4.6 % Eosinophils (%) (Auto) 3.1 % Basophils (%) (Auto) 0.2 % Neutrophils # (Auto) 17.16 K/uL Lymphocytes # (Auto) 2.11 K/uL Monocytes # (Auto) 0.97 K/uL Eosinophils # (Auto) 0.65 K/uL Basophils # (Auto) 0.05 K/uL RDW Standard Deviation 56.9 fL RDW Coefficient of Variation 17.2 % Immature Granulocyte % (Auto) 0.9 % Immature Granulocyte # (Auto) 0.20 K/uL Spherocytes 1+ Sodium Level 141 mmol/L Potassium Level 4.0 mmol/L Chloride Level 105 mmol/L Carbon Dioxide Level 32 mmol/L Anion Gap 4.0 mmol/L Blood Urea Nitrogen 20 mg/dl Creatinine 0.92 mg/dl Est Creatinine Clear Calc Drug Dose 37.2 ml/min Estimated GFR () 64.4 Estimated GFR (Non- 55.6 BUN/Creatinine Ratio 21.6 Random Glucose 93 mg/dl Calcium Level 10.7 mg/dl Vancomycin Level Trough 22.0 mcg/ml Test 12/30/17 11:18 12/30/17 16:17 Bedside Glucose 103 mg/dl 198 mg/dl Assessment & Plan Leukocytosis Possible related to postoperative wound right hip and Stage III pressure ulcer left foot CT right LE showed Interval development of periostitis with heterotopic ossifications adjacent to the anterolateral proximal right femoral shaft along with ill-defined fluid collections adjacent to the proximal femoral shaft and posterior lateral to the femoral head, possibly reflecting abscess formations as above with areas of deep tissue air. Moderate subcutaneous edema with skin thickening about the right thigh suggests cellulitis WBC on admission 21K WBC continue to elevate at 25k Afebrile Wound cx growth coag neg staph and tawny albicans On Cefepime and Vanco IV ID on board recommended to continue abx and adding fluconazole 100mg po s/p wound debridement of left foot ulcer by Dr. Moralez Continue wound vac in the right hip Wound doctor recommended to change wound vac 3xweekly continue monitor CBC case discussed with radiologist for possible CT guided aspiration of right hip radiology reviewed the image and does not see much loculated collection for aspiration Will get an U/S of the right hip to check for collection, if present will consult radiologist for aspiration 12/30 WBC continue to decrease from 35K--->24K--->21K Etiology unknown Possible related to vulvar malignancy vs infection Afebrile right hip u/s done showed no evidence for a large drainable solitary simple fluid pocket. 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 Leukocytosis from malignancy should be considered once infectious processes worked up or ruled out Consider oncology consult if WBC worsening HYPOXIA / Pleural effusions / CHF -CT chest 12/22/17: Small to moderate sized bilateral pleural effusions are noted in addition to left greater than right bilateral lower lobe consolidation and multifocal lower lobe mucous plugging. Only a minimal portion of the left lower lobe is aerated. These findings suggest atelectasis with superimposed pneumonia -is already on multiple antibiotics -is given incentive spirometry but unlikely to use without assistance, nursing orders to assist patient with incentive spirometer -Supplemental O2 as needed. -November 2017, Ejection Fraction = 60-65%, grade I diastolic dysfunction -patient was on IV lasix BID to reduce fluid overload in lung initially but has needed IV fluids as more hypernatremic, IV fluids stopped today and switch to oral lasix 12/30 CXR done today showed bilateral pleural effusions and associated bibasilar opacities which may reflect atelectasis or consolidation, slightly improved since exam of December 22, 2017. Pulmonary vascular congestion without overt edema. Continue lasix 20mg daily Stable HYPOKALEMIA K stable Continue potassium supplement Monitor BMP Protein-Calorie Malnutrition encouraged nursing staff to help patient with feeding HYPERTENSION Continue amlodipine and clonidine. BP stable ASCENDING THORACIC ANEURYSM CT scan showed fusiform aneurysmal dilation of the ascending thoracic aorta redemonstrated 4.3 cm Continue follow up as an outpatient DM TYPE 2 Hemoglobin A1c 7.6 on 11/17/17. Basal bolus insulin therapy with Lantus + NovoLog per protocol. Monitor BS VTE PROPHYLAXIS SQ heparin. RESUSCITATION STATUS DNR DISPOSITION: resident of [facility]. Family and next of kin Tyree [phone] helps with medical decision making Current Inpatient Medications: Current Inpatient Medications Medications (Trade) Dose Ordered Sig/Zaina Route Start Time Stop Time Status Last Admin Dose Admin Heparin Sodium (Porcine) (Heparin Sq 5000 Unit/0.5ml) 5,000 unit Q12 SQ 12/22/17 21:00 01/21/18 20:59 12/30/17 13:04 5,000 UNIT Acetaminophen (Tylenol Tab) 650 mg Q4H PRN PO 12/22/17 18:45 01/21/18 18:44 Amlodipine Besylate (Norvasc Tab) 10 mg DAILY PO 12/23/17 08:00 01/22/18 08:59 12/28/17 10:01 10 MG Aspirin (Ecotrin Tab) 81 mg BIDM PO 12/23/17 08:00 01/22/18 07:59 12/28/17 18:28 81 MG Cholecalciferol (Vitamin D Tab) 1,000 inter.unit DAILY PO 12/23/17 08:00 01/22/18 08:59 12/28/17 10:01 1,000 INTER.UNIT Citalopram Hydrobromide (celeXA TAB) 20 mg HS PO 12/22/17 21:00 01/21/18 20:59 12/28/17 21:50 20 MG Clonidine HCl (Catapres Tab) 0.1 mg BID PO 12/22/17 20:00 01/21/18 20:59 12/28/17 21:51 0.1 MG Cyanocobalamin (Vitamin B-12 Tab) 100 mcg DAILY PO 12/23/17 08:00 01/22/18 08:59 12/28/17 10:01 100 MCG Folic Acid (Folvite Tab) 1 mg DAILY PO 12/23/17 08:00 01/22/18 08:59 12/28/17 10:01 1 MG Albuterol/ Ipratropium (Duoneb) 3 ml QIDR INH 12/22/17 20:00 01/21/18 19:59 12/30/17 14:10 3 ML Senna/Docusate Sodium (Senokot S Tab) 2 tab BID PO 12/22/17 20:00 01/21/18 20:59 12/28/17 21:51 2 TAB Simvastatin (Zocor Tab) 20 mg QPM PO 12/22/17 21:00 01/21/18 20:59 12/28/17 21:49 20 MG Glucose (Glucose 40% Gel) 15-30 GRAMS 15 GRAMS... UD PRN PO 12/22/17 20:15 01/21/18 20:14 Glucose (Glucose Chew Tab) 4-8 Tablets 4 Tabl... UD PRN PO 12/22/17 20:15 01/21/18 20:14 Dextrose (Dextrose 50% 50ML Syringe) 25-50ML OF 50% DW IV FOR... UD PRN IV 12/22/17 20:15 01/21/18 20:14 12/29/17 08:06 25 ML Glucagon (Glucagon Inj) 1 mg UD PRN SQ 12/22/17 20:15 01/21/18 20:14 Miscellaneous Information (Consult) 1 ea UD PRN N/A 12/23/17 01:45 01/22/18 01:44 Potassium Chloride (Klor-Con Tab) 20 meq BID PO 12/23/17 08:00 01/22/18 07:59 12/28/17 21:50 20 MEQ Cefepime HCl 2000 mg/Syringe 20 ml @ 5 mls/min Q24H IV 12/23/17 06:00 01/02/18 05:59 12/30/17 05:16 5 MLS/MIN Cefepime HCl (Consult) 1 ea UD PRN N/A 12/23/17 04:00 01/22/18 03:59 Heparin Sodium (Porcine) (Heparin 10 Unit/ ml 5 ml Flush) 5 ml PRN PRN FLUSH 12/23/17 05:15 01/22/18 05:14 12/30/17 05:19 5 ML Enteral Nutritional Formula (Boost Glucose Control) 1 can TIDM PO 12/23/17 17:00 01/22/18 16:59 12/28/17 18:27 1 CAN Furosemide (Lasix Tab) 20 mg QAM PO 12/25/17 08:00 01/24/18 07:59 12/28/17 10:01 20 MG Miconazole Nitrate (Desenex Powder) 1 appln UD PRN EXT 12/25/17 09:45 01/24/18 09:44 Fluconazole (Diflucan Tab) 100 mg QAM PO 12/26/17 08:00 01/05/18 07:59 12/28/17 10:01 100 MG Sodium Chloride ([place] Nasal [place]) 1 sprays BID PRN NA 12/25/17 19:45 01/24/18 19:44 12/25/17 20:45 1 SPRAYS Menthol (Nice Kelly) 1 kelly PRN PRN KELLY 12/25/17 20:00 01/24/18 19:59 12/25/17 20:45 1 KELLY Insulin Aspart (novoLOG ASPART) SLIDING SCALE G... ACHS SC 12/27/17 06:30 01/22/18 06:29 12/28/17 18:32 1 UNITS Vancomycin HCl 1250 mg/Sodium Chloride 275 ml @ 125 mls/hr ONE ONCE IV 12/30/17 18:00 12/30/17 20:11
[2017-12-30] MEDS ORDERED: VANCOMYCIN IV 1,250 MG in SODIUM CHLORIDE 0.9% 250ML 250 ML IV ONE (18:00)
[2017-12-30 19:19] VITALS: PULSE 74; O2SAT 95
[2017-12-30] MEDS: SIMVASTATIN 20 MG TAB PO SCH (21:01)
[2017-12-30] MEDS: CITALOPRAM 20 MG TAB PO SCH (21:11)
[2017-12-31] VITALS (9 sets, daily range): BP systolic 137–179; BP diastolic 60–70; PULSE 57–76; TEMP 36.7–37.2; O2SAT 90–100
[2017-12-31] MEDS: ACETAMINOPHEN 325 MG TAB PO PRN (00:47)
[2017-12-31] MEDS: CEFEPIME IV 2,000 MG in SYRINGE 7.5 ML IV SCH (06:03)
[2017-12-31 06:58] LABS: HEMATOCRIT 25.3 % (37-47); HEMOGLOBIN 8.2 g/dL (12.0-16.0); MEAN CELL VOLUME 92.7 fL (80-100); MEAN CORPUSCULAR HGB CONC 32.4 g/dl (32-36); MEAN PLATELET VOLUME 8.7 fL (7.4-10.4); PLATELET COUNT 353 K/uL (130-400); RED CELL DISTRIBUTION WIDTH CV 17.4 % (11.5-14.5); RED CELL DISTRIBUTION WIDTH SD 57.2 fL (36.4-46.3); WHITE BLOOD COUNT 23.01 K/uL (4.8-10.8)
[2017-12-31] MEDS: ALBUT/IPRATROP 3MG/0.5MG NEB 3 ML VIAL INH SCH ×4 (07:13→19:27)
[2017-12-31] MEDS: BOOST GLUCOSE CONTROL PO SCH ×3 (08:00→16:47)
[2017-12-31] MEDS: CLONIDINE HCL 0.1 MG TAB PO SCH ×2 (08:50→20:31)
[2017-12-31] MEDS: CHOLECALCIFEROL 1000 INTER.UNIT TAB PO SCH (08:51)
[2017-12-31] MEDS: FUROSEMIDE 20 MG TAB PO SCH (08:51)
[2017-12-31] MEDS: FLUCONAZOLE 100 MG TAB PO SCH (08:51)
[2017-12-31] MEDS: DOCUSATE SODIUM/SENNA 50/8.6MG TAB PO SCH ×2 (08:51→20:32)
[2017-12-31] MEDS: AMLODIPINE BESYLATE 5 MG TAB PO SCH (08:51)
[2017-12-31] MEDS: ASPIRIN 81 MG ECTAB PO SCH ×2 (08:52→18:05)
[2017-12-31] MEDS: CYANOCOBALAMIN 100 MCG TAB (VIT B-12) PO SCH (08:52)
[2017-12-31] MEDS: POTASSIUM CHLORIDE 20 MEQ TABCR PO SCH ×2 (08:52→20:32)
[2017-12-31] MEDS: HEPARIN SOD 5000 UNIT/0.5 ML CARP SQ SCH ×2 (09:06→20:38)
[2017-12-31] MEDS: INSULIN ASPART 100 UNITS/ML 3 ML PEN SC SCH ×4 (09:07→20:39)
--- NOTE | 2017-12-31 10:29 | Progress Note ---
Subjective Date of Service: Dec 31, 2017. Subjective Pt evaluation today including: conversation w/ patient, physical exam, chart review, lab review pt lethargic, states she feels ok. no f/c tolerating abx. wbc somewhat improved. denies hip pain, denies cp. remaining ros reviewed and are limited but negative. Problem List Medical Problems: (1) Altered mental status Status: Acute (2) Bradycardia Status: Acute (3) Bronchitis Status: Acute (4) Cellulitis of right hip Status: Acute (5) Expressive aphasia Status: Acute (6) Fall Status: Acute (7) Pneumonia Status: Acute (8) Possible urinary tract infection Status: Acute (9) Postoperative abscess Status: Acute (10) Receptive aphasia Status: Acute (11) Skin tear of right hand without complication Status: Acute Objective Vital Signs Date Time Temp Pulse Resp B/P (MAP) Pulse Ox O2 Delivery O2 Flow Rate FiO2 12/31/17 08:00 Nasal Cannula 12/31/17 07:28 36.8 67 16 179/65 (103) 95 Nasal Cannula 2.0 12/31/17 07:13 71 16 95 Nasal Cannula 2.0 12/31/17 00:40 Nasal Cannula 2.0 12/31/17 00:08 36.7 57 18 152/63 (92) 90 12/30/17 19:19 74 16 95 Nasal Cannula 2.0 12/30/17 15:36 Nasal Cannula 3.0 12/30/17 14:51 37.4 81 20 145/64 (91) 91 12/30/17 14:11 79 16 97 Nasal Cannula 2.0 12/30/17 11:08 84 16 97 Nasal Cannula 2.0 Physical Exam General Appearance: WD/WN, no apparent distress Eyes: normal inspection Neck: supple Respiratory/Chest: lungs clear, normal breath sounds, + decreased breath sounds Cardiovascular: regular rate, rhythm, no edema Abdomen: soft Extremities: non-tender, no pedal edema Neurologic/Psychiatric: alert Skin: normal color Laboratory Results Item Value Date Time Gram Stain - Final Complete 12/22/17 1854 Skin Back, Upper Blood Culture - Final Complete 12/22/17 1610 Blood NO GROWTH Blood Culture - Final Complete 12/22/17 1445 Blood NO GROWTH Last 24 Hours Test 12/30/17 10:35 12/30/17 11:18 3/18/18 16:17 12/30/17 20:16 Vancomycin Level Trough 22.0 mcg/ml Bedside Glucose 103 mg/dl 198 mg/dl 224 mg/dl Test 12/31/17 06:25 12/31/17 07:40 White Blood Count 23.01 K/uL Red Blood Count 2.73 M/uL Hemoglobin 8.2 g/dL Hematocrit 25.3 % Mean Corpuscular Volume 92.7 fL Mean Corpuscular Hemoglobin 30.0 pg Mean Corpuscular Hemoglobin Concent 32.4 g/dl RDW Standard Deviation 57.2 fL RDW Coefficient of Variation 17.4 % Platelet Count 353 K/uL Mean Platelet Volume 8.7 fL Bedside Glucose 168 mg/dl Assessment and Plan (1) Abscess of right hip Assessment & Plan: added fluconazole, continue abx. continue wound care. (2) Leukocytosis
--- NOTE | 2017-12-31 14:02 | DIAGNOSTIC IMAGING REPORT ---
BONE SCAN 3 PHASE WITH WHOLE BODY HISTORY: Right hip pain. right hip infection/Leukocytosis TECHNIQUE: Immediately and 3 hours following the intravenous administration of 26 mCi of technetium 99 M MDP, 3 phase bone scan of the pelvis/hips and a whole body bone scan was obtained. Of note, due to camera malfunction the blood flow sequences were not obtained. COMPARISON STUDY: Right hip CT 12/22/2017. Chest CT 12/22/2017. FINDINGS: Blood flow sequences were not obtained due to malfunction. Minimal to no periprosthetic radiotracer uptake within the proximal right femur on the blood pool sequences. Delayed sequences demonstrate intense periprosthetic uptake within the proximal right femur/femoral neck. There are bilateral total hip arthroplasties. Radiotracer uptake at the right humeral head is likely due to the chronic fragmentation. There is also radiotracer uptake seen within the L4-5 levels which favors degenerative change. Mild radiotracer uptake at the knees and sternoclavicular joints consistent with degenerative change. IMPRESSION: 1. Study is limited from a technical standpoint as described above. Intense periprosthetic uptake at the proximal right femur/femoral neck on the delayed sequences with minimal to no periprosthetic radiotracer uptake on the blood pool sequences. Therefore, this pattern is not typical for infection. This is likely due to the extensive heterotopic ossification and recent postoperative change at the right hip. Paravertebral additional findings as described above. Electronically signed by: Mario Aragon M.D. 12/31/2017 2:00 PM Dictated Date/Time: 12/31/2017 1:50 PM
[2017-12-31] MEDS ORDERED: NURSING VERBAL MED ORDER ONE (14:30)
[2017-12-31] MEDS ORDERED: BISACODYL 10 MG SUPP PR ONE (14:45)
[2017-12-31 15:55] LABS: V-ZOSTER CULT NOT ISOLATED
--- NOTE | 2017-12-31 19:30 | Progress Note ---
Medicine Progress Note Date & Time of Visit: Dec 31, 2017 at 19:24. Subjective Pt was seen and examined Lying in bed with no distress Pt denies any pain Objective Last 8 Hrs Date Time Temp Pulse Resp B/P (MAP) Pulse Ox O2 Delivery O2 Flow Rate FiO2 12/31/17 16:30 98 Nasal Cannula 2.0 12/31/17 15:54 37.2 63 17 152/63 (92) 98 Nasal Cannula 2.0 12/31/17 15:45 73 16 98 Nasal Cannula 2.0 12/31/17 12:00 36.8 67 22 156/70 (98) 100 Nasal Cannula 2.0 Physical Exam: General- No acute distress Head- atraumatic Eyes- PERRL, EOMI ENT- oropharynx clear Neck- supple, no JVD Lungs- decrease breath sound Heart- +Systolic murmur Abdomen- normal bowel sounds, soft Extremities- no calf tenderness, wound vac in right hip, no erythema and tenderness around the surrounding area of the hip Neuro- alert, awake, confused Skin- warm & dry Laboratory Results: Last 24 Hours Test 12/30/17 20:16 12/31/17 06:25 12/31/17 07:40 12/31/17 12:00 Bedside Glucose 224 mg/dl 168 mg/dl 173 mg/dl White Blood Count 23.01 K/uL Red Blood Count 2.73 M/uL Hemoglobin 8.2 g/dL Hematocrit 25.3 % Mean Corpuscular Volume 92.7 fL Mean Corpuscular Hemoglobin 30.0 pg Mean Corpuscular Hemoglobin Concent 32.4 g/dl RDW Standard Deviation 57.2 fL RDW Coefficient of Variation 17.4 % Platelet Count 353 K/uL Mean Platelet Volume 8.7 fL Test 12/31/17 16:37 Bedside Glucose 158 mg/dl Assessment & Plan Leukocytosis Possible related to postoperative wound right hip and Stage III pressure ulcer left foot CT right LE showed Interval development of periostitis with heterotopic ossifications adjacent to the anterolateral proximal right femoral shaft along with ill-defined fluid collections adjacent to the proximal femoral shaft and posterior lateral to the femoral head, possibly reflecting abscess formations as above with areas of deep tissue air. Moderate subcutaneous edema with skin thickening about the right thigh suggests cellulitis WBC on admission 21K WBC continue to elevate at 25k Afebrile Wound cx growth coag neg staph and tawny albicans On Cefepime and Vanco IV ID on board recommended to continue abx and adding fluconazole 100mg po s/p wound debridement of left foot ulcer by Dr. Moralez Continue wound vac in the right hip Wound doctor recommended to change wound vac 3xweekly continue monitor CBC case discussed with radiologist for possible CT guided aspiration of right hip radiology reviewed the image and does not see much loculated collection for aspiration Will get an U/S of the right hip to check for collection, if present will consult radiologist for aspiration 12/31 WBC continue to decrease from 35K--->24K--->21K-->23K today Etiology unknown Possible related to vulvar malignancy vs infection Afebrile right hip u/s done showed no evidence for a large drainable solitary simple fluid pocket. case discussed with ID and ortho team Continue cefepime/Vanco/fluconazole as per ID continue monitor cbc Dr. Luu will discuss with family about the plan As per Ortho team, if Pt will need another surgery, she will need to transfer to a tertiary facility to get it done BONE SCAN Intense periprosthetic uptake at the proximal right femur/femoral neck on the delayed sequences with minimal to no periprosthetic radiotracer uptake on the blood pool sequences. Therefore, this pattern is not typical for infection. This is likely due to the extensive heterotopic ossification and recent postoperative change at the right hip. Paravertebral additional findings as described above. 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 Leukocytosis from malignancy should be considered once infectious processes worked up or ruled out Consider oncology consult if WBC worsening HYPOXIA / Pleural effusions / CHF -CT chest 12/22/17: Small to moderate sized bilateral pleural effusions are noted in addition to left greater than right bilateral lower lobe consolidation and multifocal lower lobe mucous plugging. Only a minimal portion of the left lower lobe is aerated. These findings suggest atelectasis with superimposed pneumonia -is already on multiple antibiotics -is given incentive spirometry but unlikely to use without assistance, nursing orders to assist patient with incentive spirometer -Supplemental O2 as needed. -November 2017, Ejection Fraction = 60-65%, grade I diastolic dysfunction -patient was on IV lasix BID to reduce fluid overload in lung initially but has needed IV fluids as more hypernatremic, IV fluids stopped today and switch to oral lasix 12/30 CXR done today showed bilateral pleural effusions and associated bibasilar opacities which may reflect atelectasis or consolidation, slightly improved since exam of December 22, 2017. Pulmonary vascular congestion without overt edema. Continue lasix 20mg daily Stable HYPOKALEMIA K stable Continue potassium supplement Monitor BMP Protein-Calorie Malnutrition encouraged nursing staff to help patient with feeding HYPERTENSION Continue amlodipine and clonidine. BP stable ASCENDING THORACIC ANEURYSM CT scan showed fusiform aneurysmal dilation of the ascending thoracic aorta redemonstrated 4.3 cm Continue follow up as an outpatient DM TYPE 2 Hemoglobin A1c 7.6 on 11/17/17. Basal bolus insulin therapy with Lantus + NovoLog per protocol. Monitor BS VTE PROPHYLAXIS SQ heparin. RESUSCITATION STATUS DNR DISPOSITION: resident of [facility]. Family and next of kin Tyree [phone] helps with medical decision making Current Inpatient Medications: Current Inpatient Medications Medications (Trade) Dose Ordered Sig/Zaina Route Start Time Stop Time Status Last Admin Dose Admin Heparin Sodium (Porcine) (Heparin Sq 5000 Unit/0.5ml) 5,000 unit Q12 SQ 12/22/17 21:00 01/21/18 20:59 12/31/17 09:06 5,000 UNIT Acetaminophen (Tylenol Tab) 650 mg Q4H PRN PO 12/22/17 18:45 01/21/18 18:44 12/31/17 00:47 650 MG Amlodipine Besylate (Norvasc Tab) 10 mg DAILY PO 12/23/17 08:00 01/22/18 08:59 12/31/17 08:51 10 MG Aspirin (Ecotrin Tab) 81 mg BIDM PO 12/23/17 08:00 01/22/18 07:59 12/31/17 18:05 81 MG Cholecalciferol (Vitamin D Tab) 1,000 inter.unit DAILY PO 12/23/17 08:00 01/22/18 08:59 12/31/17 08:51 1,000 INTER.UNIT Citalopram Hydrobromide (celeXA TAB) 20 mg HS PO 12/22/17 21:00 01/21/18 20:59 12/30/17 21:11 20 MG Clonidine HCl (Catapres Tab) 0.1 mg BID PO 12/22/17 20:00 01/21/18 20:59 12/31/17 08:50 0.1 MG Cyanocobalamin (Vitamin B-12 Tab) 100 mcg DAILY PO 12/23/17 08:00 01/22/18 08:59 12/31/17 08:52 100 MCG Folic Acid (Folvite Tab) 1 mg DAILY PO 12/23/17 08:00 01/22/18 08:59 12/31/17 08:51 1 MG Albuterol/ Ipratropium (Duoneb) 3 ml QIDR INH 12/22/17 20:00 01/21/18 19:59 12/31/17 15:45 3 ML Senna/Docusate Sodium (Senokot S Tab) 2 tab BID PO 12/22/17 20:00 01/21/18 20:59 12/31/17 08:51 2 TAB Simvastatin (Zocor Tab) 20 mg QPM PO 12/22/17 21:00 01/21/18 20:59 12/30/17 21:01 20 MG Glucose (Glucose 40% Gel) 15-30 GRAMS 15 GRAMS... UD PRN PO 12/22/17 20:15 01/21/18 20:14 Glucose (Glucose Chew Tab) 4-8 Tablets 4 Tabl... UD PRN PO 12/22/17 20:15 01/21/18 20:14 Dextrose (Dextrose 50% 50ML Syringe) 25-50ML OF 50% DW IV FOR... UD PRN IV 12/22/17 20:15 01/21/18 20:14 12/29/17 08:06 25 ML Glucagon (Glucagon Inj) 1 mg UD PRN SQ 12/22/17 20:15 01/21/18 20:14 Miscellaneous Information (Consult) 1 ea UD PRN N/A 12/23/17 01:45 01/22/18 01:44 Potassium Chloride (Klor-Con Tab) 20 meq BID PO 12/23/17 08:00 01/22/18 07:59 12/31/17 08:52 20 MEQ Cefepime HCl 2000 mg/Syringe 20 ml @ 5 mls/min Q24H IV 12/23/17 06:00 01/02/18 05:59 12/31/17 06:03 5 MLS/MIN Cefepime HCl (Consult) 1 ea UD PRN N/A 12/23/17 04:00 01/22/18 03:59 Heparin Sodium (Porcine) (Heparin 10 Unit/ ml 5 ml Flush) 5 ml PRN PRN FLUSH 12/23/17 05:15 01/22/18 05:14 12/31/17 10:40 5 ML Enteral Nutritional Formula (Boost Glucose Control) 1 can TIDM PO 12/23/17 17:00 01/22/18 16:59 12/31/17 16:47 1 CAN Furosemide (Lasix Tab) 20 mg QAM PO 12/25/17 08:00 01/24/18 07:59 12/31/17 08:51 20 MG Miconazole Nitrate (Desenex Powder) 1 appln UD PRN EXT 12/25/17 09:45 01/24/18 09:44 Fluconazole (Diflucan Tab) 100 mg QAM PO 12/26/17 08:00 01/05/18 07:59 12/31/17 08:51 100 MG Sodium Chloride ([place] Nasal [place]) 1 sprays BID PRN NA 12/25/17 19:45 01/24/18 19:44 12/25/17 20:45 1 SPRAYS Menthol (Nice Kelly) 1 kelly PRN PRN KELLY 12/25/17 20:00 01/24/18 19:59 12/25/17 20:45 1 KELLY Insulin Aspart (novoLOG ASPART) SLIDING SCALE G... ACHS SC 12/27/17 06:30 01/22/18 06:29 12/31/17 13:45 1 UNITS
[2017-12-31] MEDS: SIMVASTATIN 20 MG TAB PO SCH (20:59)
[2017-12-31] MEDS: CITALOPRAM 20 MG TAB PO SCH (20:59)
[2018-01-01] MEDS: CEFEPIME IV 2,000 MG in SYRINGE 7.5 ML IV SCH (05:46)
[2018-01-01] MEDS: ALBUT/IPRATROP 3MG/0.5MG NEB 3 ML VIAL INH SCH ×4 (07:06→19:45)
[2018-01-01 07:09] VITALS: PULSE 72; O2SAT 96
[2018-01-01] MEDS: ACETAMINOPHEN 325 MG TAB PO PRN ×2 (07:11→12:27)
[2018-01-01 07:36] VITALS: BP 166/66; PULSE 62; TEMP 36.7; O2SAT 96
[2018-01-01 08:25] LABS: HEMATOCRIT 26.8 % (37-47); HEMOGLOBIN 8.7 g/dL (12.0-16.0); MEAN CELL VOLUME 92.7 fL (80-100); MEAN CORPUSCULAR HEMOGLOBIN 30.1 pg (25-34); MEAN CORPUSCULAR HGB CONC 32.5 g/dl (32-36); MEAN PLATELET VOLUME 8.6 fL (7.4-10.4); PLATELET COUNT 352 K/uL (130-400); RED CELL DISTRIBUTION WIDTH CV 17.4 % (11.5-14.5); RED CELL DISTRIBUTION WIDTH SD 57.9 fL (36.4-46.3); WHITE BLOOD COUNT 29.35 K/uL (4.8-10.8)
[2018-01-01] MEDS: ASPIRIN 81 MG ECTAB PO SCH ×2 (08:30→17:36)
[2018-01-01] MEDS: FLUCONAZOLE 100 MG TAB PO SCH (08:30)
[2018-01-01] MEDS: AMLODIPINE BESYLATE 5 MG TAB PO SCH (08:30)
[2018-01-01] MEDS: CYANOCOBALAMIN 100 MCG TAB (VIT B-12) PO SCH (08:31)
[2018-01-01] MEDS: POTASSIUM CHLORIDE 20 MEQ TABCR PO SCH ×2 (08:31→20:09)
[2018-01-01] MEDS: FUROSEMIDE 20 MG TAB PO SCH (08:31)
[2018-01-01] MEDS: BOOST GLUCOSE CONTROL PO SCH ×2 (08:37→12:00)
[2018-01-01] MEDS: INSULIN ASPART 100 UNITS/ML 3 ML PEN SC SCH ×4 (08:46→21:30)
[2018-01-01] MEDS: HEPARIN SOD 5000 UNIT/0.5 ML CARP SQ SCH ×2 (08:47→21:29)
[2018-01-01 08:58] LABS: CREATININE 1.03 mg/dl (0.60-1.20); POTASSIUM 3.7 mmol/L (3.5-5.1)
[2018-01-01] MEDS: CLONIDINE HCL 0.1 MG TAB PO SCH ×2 (09:28→20:07)
[2018-01-01] MEDS: CHOLECALCIFEROL 1000 INTER.UNIT TAB PO SCH (09:28)
[2018-01-01] MEDS: DOCUSATE SODIUM/SENNA 50/8.6MG TAB PO SCH ×2 (09:28→20:07)
[2018-01-01] MEDS: VANCOMYCIN IV 1,000 MG in SODIUM CHLORIDE 0.9% 250ML 250 ML IV SCH (09:55)
--- NOTE | 2018-01-01 10:08 | Pharmacy Progress Note ---
Pharmacy Abx Dose Progress Nt Date of Service Jan 01, 2018. Pharmacy Dosing Scope The patient is currently receiving the following antimicrobial agents per Pharmacy consult: Vancomycin 1,250 mg IV/PO every 36 hours & Cefepime 2,000mg IV Q24hrs Objective Height (Feet): 5 Height (Inches): 2.00 Weight (Kilograms): 64.100 Vital Signs (Past 12Hrs) Vital Signs Past 12 Hours Date Time Temp Pulse Resp B/P (MAP) Pulse Ox O2 Delivery O2 Flow Rate FiO2 01/01/18 08:00 Nasal Cannula 2.0 01/01/18 07:36 36.7 62 20 166/66 (99) 96 Nasal Cannula 2.0 01/01/18 07:09 72 16 96 Nasal Cannula 2.0 12/31/17 23:59 Nasal Cannula 2.0 12/31/17 23:01 36.7 66 20 137/60 (85) 97 Nasal Cannula 2.0 Lab Results (24Hrs) Laboratory Tests (24 Hours) Test 01/01/18 08:13 White Blood Count 29.35 K/uL (4.8-10.8) H Micro Results Date/Time Source Procedure Growth Status 12/22/17 16:10 Blood Blood Culture - Final NO GROWTH Complete 12/22/17 14:45 Blood Blood Culture - Final NO GROWTH Complete 12/22/17 15:00 Urine,Catheterized Urine Culture - Final NO GROWTH - LESS THAN 1,000 COLONIES/ML Complete 12/22/17 18:54 Skin Back, Upper Gram Stain - Final Complete 12/22/17 18:54 Wound Culture - Final Swathi Albicans Coag Neg Staphylococcus Complete Risk Factors for Resistance * Resident in a prison or extended-care facility * Hospitalization for 48 hours or more within the past 90 days * Current hospitalization > 5 days * Antimicrobial use within the last 90 days: Vancomycin Assessment & Plan Assessment 87 year old female receiving IV Vancomycin, Cefepime, and PO Fluconazole for treatment of right hip infection with cellulitis. Day # 11 of inpatient antimicrobial therapy. Pt was previously receiving IV Vancomycin at [facility]. Plan Vancomycin IV * Trough level of 21.6 mcg/mL is slightly supratherapeutic. * Decrease dose, continue dosing interval. Change to 1,000 mg IV every 36 hours * Goal trough level for deep infection : 15 to 20 mcg/mL Cefepime * Continue 2,000 mg IV Q24hrs Fluconazole * for swathi albicans back wound. * 100mg PO daily * Of note, doses were held on 12/29 & 12/30 per MD for NPO Pharmacy will continue to follow and will adjust dose/frequency as necessary. Thank you.
[2018-01-01 15:42] VITALS: PULSE 60; O2SAT 98
[2018-01-01 15:51] VITALS: BP 150/71; PULSE 55; TEMP 36.5; O2SAT 96
--- NOTE | 2018-01-01 16:30 | Progress Note ---
Internal Med Progress Note Date of Service: Jan 01, 2018. Provider Documentation: SUBJECTIVE: The patient was seen and examined. She complains to have generalized weakness. Denies any pain, shortness of breath, any fever or chills. OBJECTIVE: Vital Signs-as noted below Exam: General-no apparent distress at rest Eyes-normal ENT-normal Neck-supple Lungs-decreased breath sounds at both sites with minimal crackles at the bases Heart-regular, no murmur Abdomen-benign, mildly distended, bowel sounds present. Extremities-trace edema bilaterally Wound VAC in situ over right hip joint Neuro-alert and awake Generally weak and lethargic. Clinically no focal neuro deficit. Lab data as noted below. ASSESSMENT & PLAN: Right Hip Joint Infection with Stage III pressure ulcer left foot Leukocytosis is secondary CT right LE showed Interval development of periostitis with heterotopic ossifications adjacent to the anterolateral proximal right femoral shaft along with ill-defined fluid collections adjacent to the proximal femoral shaft and posterior lateral to the femoral head, possibly reflecting abscess formations as above with areas of deep tissue air. Moderate subcutaneous edema with skin thickening about the right thigh suggests cellulitis Afebrile on admission Wound cx growth coag neg staph and tawny albicans On Cefepime and Vanco IV ID on board recommended to continue abx and adding fluconazole 100mg po to cover tawny s/p wound debridement of left foot ulcer by Dr. Moralez Continue wound vac in the right hip Continue monitor CBC-increasing WCC Case was discussed with radiologist for possible CT guided aspiration of right hip Radiology reviewed the image and does not see much loculated collection for aspiration Right hip u/s done showed no evidence for a large drainable solitary simple fluid pocket. Case discussed with ID and ortho team Continue cefepime/Vanco/fluconazole as per ID Dr. 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 Leukocytosis from malignancy should be considered once infectious processes worked up or ruled out Consider oncology consult if WBC worsening HYPOXIA / Pleural effusions / CHF -CT chest 12/22/17: Small to moderate sized bilateral pleural effusions are noted in addition to left greater than right bilateral lower lobe consolidation and multifocal lower lobe mucous plugging. Only a minimal portion of the left lower lobe is aerated. These findings suggest atelectasis with superimposed pneumonia -is already on multiple antibiotics -is given incentive spirometry but unlikely to use without assistance, nursing orders to assist patient with incentive spirometer -Supplemental O2 as needed. -November 2017, Ejection Fraction = 60-65%, grade I diastolic dysfunction -patient was on IV lasix BID to reduce fluid overload in lung initially but has needed IV fluids as more hypernatremic, -now on oral Lasix HYPOKALEMIA -resolved K stable Continue potassium supplement Monitor BMP Protein-Calorie Malnutrition encouraged nursing staff to help patient with feeding HYPERTENSION Continue amlodipine and clonidine. BP stable ASCENDING THORACIC ANEURYSM CT scan showed fusiform aneurysmal dilation of the ascending thoracic aorta redemonstrated 4.3 cm Continue follow up as an outpatient DM TYPE 2 Hemoglobin A1c 7.6 on 11/17/17. Basal bolus insulin therapy with Lantus + NovoLog per protocol. Monitor BS VTE PROPHYLAXIS SQ heparin. RESUSCITATION STATUS DNR DISPOSITION: resident of [facility]. Family and next of kin Tyree [phone] helps with medical decision making Vital Signs: Date Time Temp Pulse Resp B/P (MAP) Pulse Ox O2 Delivery O2 Flow Rate FiO2 01/01/18 15:51 36.5 55 16 150/71 (97) 96 Nasal Cannula 2.0 01/01/18 15:42 60 16 98 Nasal Cannula 2.0 01/01/18 08:00 Nasal Cannula 2.0 01/01/18 07:36 36.7 62 20 166/66 (99) 96 Nasal Cannula 2.0 01/01/18 07:09 72 16 96 Nasal Cannula 2.0 12/31/17 23:59 Nasal Cannula 2.0 12/31/17 23:01 36.7 66 20 137/60 (85) 97 Nasal Cannula 2.0 12/31/17 19:28 76 16 96 Nasal Cannula 2.0 12/31/17 16:30 98 Nasal Cannula 2.0 Lab Results: Results Past 24 Hours Test 12/31/17 16:37 12/31/17 19:34 01/01/18 07:52 01/01/18 08:13 Range/Units Bedside Glucose 158 218 243 70-90 mg/dl White Blood Count 29.35 4.8-10.8 K/uL Red Blood Count 2.89 4.2-5.4 M/uL Hemoglobin 8.7 12.0-16.0 g/dL Hematocrit 26.8 37-47 % Mean Corpuscular Volume 92.7 80-100 fL Mean Corpuscular Hemoglobin 30.1 25-34 pg Mean Corpuscular Hemoglobin Concent 32.5 32-36 g/dl RDW Standard Deviation 57.9 36.4-46.3 fL RDW Coefficient of Variation 17.4 11.5-14.5 % Platelet Count 352 130-400 K/uL Mean Platelet Volume 8.6 7.4-10.4 fL Sodium Level 137 136-145 mmol/L Potassium Level 3.7 3.5-5.1 mmol/L Chloride Level 101 98-107 mmol/L Carbon Dioxide Level 31 21-32 mmol/L Anion Gap 5.0 3-11 mmol/L Blood Urea Nitrogen 25 7-18 mg/dl Creatinine 1.03 0.60-1.20 mg/dl Est Creatinine Clear Calc Drug Dose 33.2 ml/min Estimated GFR () 56.2 Estimated GFR (Non- 48.5 BUN/Creatinine Ratio 24.2 10-20 Random Glucose 215 70-99 mg/dl Calcium Level 11.0 8.5-10.1 mg/dl Random Vancomycin Level 21.6 mcg/ml Test 01/01/18 11:31 Range/Units Bedside Glucose 315 70-90 mg/dl
[2018-01-01 19:46] VITALS: PULSE 72; O2SAT 98
[2018-01-01] MEDS: SIMVASTATIN 20 MG TAB PO SCH (20:08)
[2018-01-01] MEDS: CITALOPRAM 20 MG TAB PO SCH (20:09)
[2018-01-01] MEDS ORDERED: PHARMACY GLYCEMIC MGMT CONSULT PRN (20:45)
[2018-01-01] MEDS ORDERED: INSULIN GLARGINE SOLOSTAR 100 UNITS/ML 3 ML PEN SC ONE (21:00)
[2018-01-01 22:57] VITALS: BP 150/53; PULSE 65; TEMP 36.3; O2SAT 99
[2018-01-02] MEDS ORDERED: INSULIN ASPART 100 UNITS/ML 3 ML PEN SC SCH (02:00)
[2018-01-02] MEDS: ACETAMINOPHEN 325 MG TAB PO PRN ×3 (06:09→21:18)
[2018-01-02 06:50] LABS: HEMATOCRIT 25.6 % (37-47); HEMOGLOBIN 8.3 g/dL (12.0-16.0); MEAN CELL VOLUME 92.8 fL (80-100); MEAN CORPUSCULAR HEMOGLOBIN 30.1 pg (25-34); MEAN CORPUSCULAR HGB CONC 32.4 g/dl (32-36); PLATELET COUNT 399 K/uL (130-400); RED CELL DISTRIBUTION WIDTH CV 17.6 % (11.5-14.5); RED CELL DISTRIBUTION WIDTH SD 58.2 fL (36.4-46.3); WHITE BLOOD COUNT 39.62 K/uL (4.8-10.8)
[2018-01-02 07:04] VITALS: PULSE 60; O2SAT 94
[2018-01-02] MEDS: ALBUT/IPRATROP 3MG/0.5MG NEB 3 ML VIAL INH SCH ×4 (07:04→19:31)
[2018-01-02 07:16] LABS: CALCIUM 11.5 mg/dl (8.5-10.1); CREATININE 1.08 mg/dl (0.60-1.20); POTASSIUM 3.8 mmol/L (3.5-5.1)
[2018-01-02 07:17] LABS: PHOSPHORUS 2.8 mg/dl (2.5-4.9)
[2018-01-02] MEDS: CYANOCOBALAMIN 100 MCG TAB (VIT B-12) PO SCH (07:29)
[2018-01-02] MEDS: CHOLECALCIFEROL 1000 INTER.UNIT TAB PO SCH (07:29)
[2018-01-02] MEDS: BOOST GLUCOSE CONTROL PO SCH (07:29)
[2018-01-02] MEDS: POTASSIUM CHLORIDE 20 MEQ TABCR PO SCH ×2 (07:29→20:18)
[2018-01-02] MEDS: ASPIRIN 81 MG ECTAB PO SCH ×2 (07:29→17:52)
[2018-01-02] MEDS: DOCUSATE SODIUM/SENNA 50/8.6MG TAB PO SCH ×2 (07:29→20:18)
[2018-01-02] MEDS: CLONIDINE HCL 0.1 MG TAB PO SCH ×2 (07:30→20:18)
[2018-01-02] MEDS: FLUCONAZOLE 100 MG TAB PO SCH (07:30)
[2018-01-02] MEDS: AMLODIPINE BESYLATE 5 MG TAB PO SCH (07:30)
[2018-01-02] MEDS: FUROSEMIDE 20 MG TAB PO SCH (07:30)
[2018-01-02 07:32] VITALS: BP 166/72; PULSE 60; TEMP 36.4; O2SAT 94
--- NOTE | 2018-01-02 08:15 | Pharmacy Progress Note ---
Glycemic Control Intl Consult Date of Service Jan 02, 2018. Scope Glycemic Pharmacist consulted by Dr Zarco on 01/01/18 for glycemic control and to write orders per [facility] inpatient glycemic control protocol Objective Weight (Kilograms): 64.100 Accuchecks BSG (last 24hrs): Test 01/01/18 08:13 01/01/18 11:31 01/01/18 16:48 01/01/18 19:49 Random Glucose 215 mg/dl (70-99) Bedside Glucose 315 mg/dl (70-90) 296 mg/dl (70-90) 267 mg/dl (70-90) Test 01/02/18 01:54 01/02/18 06:05 Bedside Glucose 200 mg/dl (70-90) Random Glucose 121 mg/dl (70-99) Laboratory Data (last 24hrs) Test 01/01/18 08:13 01/02/18 06:05 Anion Gap 5.0 mmol/L 6.0 mmol/L BUN/Creatinine Ratio 24.2 27.2 Blood Urea Nitrogen 25 mg/dl 29 mg/dl Creatinine 1.03 mg/dl 1.08 mg/dl Potassium Level 3.7 mmol/L 3.8 mmol/L Sodium Level 137 mmol/L 138 mmol/L White Blood Count 29.35 K/uL 39.62 K/uL Recent Pertinent Medications Outpatient Anti-diabetic Regimen: * Lantus 6 units SQ BID * A1c = 7.6 % 11/17/17 The patient is currently receiving: * Basal insulin: Lantus 10 units SQ given last evening x 1 * Correctional Insulin: Novolog Correction per scale ACHS Goal Range: Low 120 mg/dL - High 160 mg/dL Correction Factor: 25 mg/dL/unit * Prandial insulin: Per carb ratio of 1 unit per 12 grams CHO consumed Risk Factors for Insulin Resistance: * Infection: R hip joint infection * Diet: T2DM + boost glucose control daily Assessment & Plan ASSESSMENT: * 87 yr old female with history of T2DM controlled with basal insulin as an outpatient. * Patient is currently receiving vanco and cefepime IV for treatment of R hip joint infection. * Pharmacy was consulted on 01/01 due to persistent hyperglycemia. This was likely due to a lack of basal insulin. Lantus was discontinued on 12/29 after patient became hypoglycemic overnight (BSG 61, 73) with fasting BSGs of 107 on and 70 on 12/29. Of note, she was receiving double her home dose at this time (Lantus 12 units BID). * BSG greatly improved this am * Will resume home dose of Lantus * Loosen correction factor now that patient is at goal PLAN FOR INPATIENT GLYCEMIC CONTROL: * Basal insulin * Lantus 6 units SQ BID * Correctional Insulin * NOVOLOG per scale ACHS or Q6hrs while NPO * Goal Range: Low 120 mg/dL - High 160 mg/dL * Correction Factor: 30 mg/dL/unit * Nutritional / Prandial insulin per carb ratio of 1 unit per 12 grams CHO consumed * Please note that the plan above was derived based on current level of insulin resistance and hospital stress. These recommendations are appropriate for inpatient admission only. Plan of care upon discharge will need to be reassessed to avoid potential outpatient hypo/hyperglycemia. Thank you.
[2018-01-02] MEDS: CEFEPIME IV 2,000 MG in SYRINGE 7.5 ML IV SCH (09:03)
[2018-01-02] MEDS: INSULIN ASPART 100 UNITS/ML 3 ML PEN SC SCH ×4 (09:05→21:26)
[2018-01-02] MEDS: INSULIN GLARGINE SOLOSTAR 100 UNITS/ML 3 ML PEN SC SCH ×2 (09:06→21:26)
[2018-01-02] MEDS: HEPARIN SOD 5000 UNIT/0.5 ML CARP SQ SCH ×2 (09:06→21:25)
[2018-01-02 11:15] VITALS: PULSE 64; O2SAT 97
[2018-01-02] MEDS ORDERED: POLYETHYLENE (MIRALAX) 17 GM PACK PO ONE (11:23)
[2018-01-02] MEDS ORDERED: BISACODYL 10 MG SUPP PR STA (11:23)
--- NOTE | 2018-01-02 14:43 | Progress Note ---
Internal Med Progress Note Date of Service: Jan 02, 2018. Provider Documentation: SUBJECTIVE: The patient was seen and examined. She complains to have generalized weakness. Denies any pain, shortness of breath, any fever or chills. 01/02: Much better today Talking normally Complains of some pain at the back No Fever,chills No pain on movement of the right Hip joint OBJECTIVE: Vital Signs-as noted below Exam: General-no apparent distress at rest Eyes-normal ENT-normal Neck-supple Lungs-decreased breath sounds at both sites with minimal crackles at the bases Heart-regular, no murmur Abdomen-benign, mildly distended, bowel sounds present. Extremities-trace edema bilaterally Wound VAC in situ over right hip joint;See Image of the wound Wound about the size of 6x5x.5 to 1cm deep,no drainage -wound is improved Neuro-alert and awake Generally weak and lethargic. Clinically no focal neuro deficit. Lab data as noted below. ASSESSMENT & PLAN: Right Hip Joint Infection with Stage III pressure ulcer left foot:controlled and on pain on Hop movement Leukocytosis is secondary CT right LE showed Interval development of periostitis with heterotopic ossifications adjacent to the anterolateral proximal right femoral shaft along with ill-defined fluid collections adjacent to the proximal femoral shaft and posterior lateral to the femoral head, possibly reflecting abscess formations as above with areas of deep tissue air. Moderate subcutaneous edema with skin thickening about the right thigh suggests cellulitis Afebrile on admission Wound cx growth coag neg staph and tawny albicans On Cefepime and Vanco IV ID on board recommended to continue abx and adding fluconazole 100mg po to cover tawny s/p wound debridement of left foot ulcer by Dr. Moralez Continue wound vac in the right hip Continue monitor CBC-increasing WCC Case was discussed with radiologist for possible CT guided aspiration of right hip Radiology reviewed the image and does not see much loculated collection for aspiration Right hip u/s done showed no evidence for a large drainable solitary simple fluid pocket. Case discussed with ID and ortho team Continue cefepime/Vanco/fluconazole as per ID Dr. 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 Leukocytosis from malignancy should be considered once infectious processes worked up or ruled out Consider oncology consult if WBC worsening HYPOXIA / Pleural effusions / CHF -CT chest 12/22/17: Small to moderate sized bilateral pleural effusions are noted in addition to left greater than right bilateral lower lobe consolidation and multifocal lower lobe mucous plugging. Only a minimal portion of the left lower lobe is aerated. These findings suggest atelectasis with superimposed pneumonia -is already on multiple antibiotics -is given incentive spirometry but unlikely to use without assistance, nursing orders to assist patient with incentive spirometer -Supplemental O2 as needed. -November 2017, Ejection Fraction = 60-65%, grade I diastolic dysfunction -patient was on IV lasix BID to reduce fluid overload in lung initially but has needed IV fluids as more hypernatremic, -now on oral Lasix HYPOKALEMIA -resolved K stable Continue potassium supplement Monitor BMP Protein-Calorie Malnutrition encouraged nursing staff to help patient with feeding HYPERTENSION Continue amlodipine and clonidine. BP stable ASCENDING THORACIC ANEURYSM CT scan showed fusiform aneurysmal dilation of the ascending thoracic aorta redemonstrated 4.3 cm Continue follow up as an outpatient DM TYPE 2 Hemoglobin A1c 7.6 on 11/17/17. Basal bolus insulin therapy with Lantus + NovoLog per protocol. Monitor BS VTE PROPHYLAXIS SQ heparin. RESUSCITATION STATUS DNR DISPOSITION: resident of [facility]. Family and next of kin Tyree [phone] helps with medical decision making Vital Signs: Date Time Temp Pulse Resp B/P (MAP) Pulse Ox O2 Delivery O2 Flow Rate FiO2 01/02/18 11:15 64 16 97 Nasal Cannula 2.0 01/02/18 09:00 Nasal Cannula 2.0 01/02/18 07:32 36.4 60 18 166/72 (103) 94 Nasal Cannula 2.0 01/02/18 07:04 60 16 94 Nasal Cannula 2.0 01/02/18 00:00 Nasal Cannula 2.0 01/01/18 22:57 36.3 65 16 150/53 (85) 99 Nasal Cannula 2.0 01/01/18 19:46 72 16 98 Nasal Cannula 2.0 01/01/18 16:00 Nasal Cannula 2.0 01/01/18 15:51 36.5 55 16 150/71 (97) 96 Nasal Cannula 2.0 01/01/18 15:42 60 16 98 Nasal Cannula 2.0 Lab Results: Results Past 24 Hours Test 01/01/18 16:48 01/01/18 19:49 01/02/18 01:54 01/02/18 06:05 Range/Units Bedside Glucose 296 267 200 70-90 mg/dl White Blood Count 39.62 4.8-10.8 K/uL Red Blood Count 2.76 4.2-5.4 M/uL Hemoglobin 8.3 12.0-16.0 g/dL Hematocrit 25.6 37-47 % Mean Corpuscular Volume 92.8 80-100 fL Mean Corpuscular Hemoglobin 30.1 25-34 pg Mean Corpuscular Hemoglobin Concent 32.4 32-36 g/dl RDW Standard Deviation 58.2 36.4-46.3 fL RDW Coefficient of Variation 17.6 11.5-14.5 % Platelet Count 399 130-400 K/uL Mean Platelet Volume 9.0 7.4-10.4 fL Peripheral Blood Smear Path Consult Sodium Level 138 136-145 mmol/L Potassium Level 3.8 3.5-5.1 mmol/L Chloride Level 102 98-107 mmol/L Carbon Dioxide Level 31 21-32 mmol/L Anion Gap 6.0 3-11 mmol/L Blood Urea Nitrogen 29 7-18 mg/dl Creatinine 1.08 0.60-1.20 mg/dl Est Creatinine Clear Calc Drug Dose 31.7 ml/min Estimated GFR () 53.1 Estimated GFR (Non- 45.8 BUN/Creatinine Ratio 27.2 10-20 Random Glucose 121 70-99 mg/dl Calcium Level 11.5 8.5-10.1 mg/dl Phosphorus Level 2.8 2.5-4.9 mg/dl Magnesium Level 2.4 1.8-2.4 mg/dl Test 01/02/18 07:59 01/02/18 11:31 Range/Units Bedside Glucose 197 253 70-90 mg/dl
[2018-01-02 15:03] VITALS: PULSE 64; O2SAT 96
--- NOTE | 2018-01-02 16:57 | ORTHOPEDIC PROGRESS NOTE ---
DATE: 01/02/2018 HISTORY OF PRESENT ILLNESS: The patient is known to our practice and was seen by Dr. Byrd on this admission in consultation on 12/23/2017. The patient had been admitted for confusion and increased white count and Dr. Byrd was asked to see the patient for a question of infected right total hip arthroplasty. In Feburary of this year , she had had an infection of the right AMILCAR and localized area and also, she had had an ulcer that had developed over the right thigh, which was then debrided and she underwent femoral head replacement as well as acetabular liner replacement with irrigation and debridement of the hip joint. This hip incision was closed and a wound VAC was applied at that time to the debrided ulcer area. She returned this past weekend with the increased count and confusion. Dr. Byrd ordered a CT scan, which showed some interval development of periostitis with heterotopic ossification at the anterolateral proximal right femoral shaft along with ill-defined fluid collections adjacent to the proximal femoral shaft and posterior lateral to the femoral head. Moderate subcutaneous edema was noted. At that time, Dr. Byrd recommended a guided aspiration. Medicine service discussed getting a CT guided aspiration with radiology and it was felt that because of the fluid being so miniscule in amount that they suggest getting an ultrasound as well to see if there are any areas that could be drained. It was felt that with a small amount of fluid on the CT, it would not be possible. The ultrasound was ordered and showed generalized soft tissue edema with multifocal phlegmon like collections within the deep soft tissues adjacent to the right hip prosthetic. Several associated air pockets were present. No evidence for a large drainable solitary or simple fluid pocket. This was discussed with our physicians and with no drainable fluid collection, it was felt that no surgery would be indicated at this time per orthopedics. Throughout the patient's stay, her white count began to fluctuate, rising and falling and after discussion, a bone scan was ordered of the right hip. This was done on December 31, which showed a limited study, but intense periprosthetic uptake at the proximal right femur and femoral neck on delayed sequences with minimal to no periprosthetic radiotracer uptake on the blood pool sequences. The pattern was not typical for infection and was likely due to extensive heterotopic ossification and recent postoperative change at the right hip and also noted paravertebral additional findings that suggested degenerative change per Radiology. With the likelihood of the prosthetic not being infected, discussion with UFARSHAD allensisiriaans who had done the initial total hip replacement was again planning for nonoperative treatment at this time and continue with wound care and infectious disease team care and IV antibiotics. It was noted that any further treatment, whether it would be with her prosthesis or with the possibility of closing her current wound that had the wound VAC, would likely require a bigger surgery that could be provided here and tertiary care services would likely be required. This was discussed with the medicine service and I contacted the patient's son today and discussed in detail of the findings. At this point, they do not want to continue with any kind of surgeries for her and we will continue to treat her with the wound care and wound VAC and as per medicine service. If you have any further questions, please feel free to contact us. Orthopedics will sign off at this time. JESSICA
[2018-01-02 19:33] VITALS: PULSE 65; O2SAT 98
[2018-01-02] MEDS: SIMVASTATIN 20 MG TAB PO SCH (20:17)
[2018-01-02] MEDS: CITALOPRAM 20 MG TAB PO SCH (20:19)
[2018-01-02] MEDS: VANCOMYCIN IV 1,000 MG in SODIUM CHLORIDE 0.9% 250ML 250 ML IV SCH (21:21)
[2018-01-02 23:33] VITALS: BP 158/65; PULSE 65; TEMP 36.5; O2SAT 99
[2018-01-03 06:20] LABS: HEMATOCRIT 26.1 % (37-47); HEMOGLOBIN 8.5 g/dL (12.0-16.0); MEAN CELL VOLUME 93.2 fL (80-100); MEAN CORPUSCULAR HEMOGLOBIN 30.4 pg (25-34); MEAN CORPUSCULAR HGB CONC 32.6 g/dl (32-36); MEAN PLATELET VOLUME 9.3 fL (7.4-10.4); PLATELET COUNT 416 K/uL (130-400); RED CELL DISTRIBUTION WIDTH CV 17.8 % (11.5-14.5); RED CELL DISTRIBUTION WIDTH SD 59.6 fL (36.4-46.3); WHITE BLOOD COUNT 39.71 K/uL (4.8-10.8)
[2018-01-03 06:52] LABS: ALBUMIN 1.8 gm/dl (3.4-5.0); ALT/SGPT 11 U/L (12-78); AST/SGOT 14 U/L (15-37); BLOOD UREA NITROGEN 33 mg/dl (7-18); CALCIUM 11.9 mg/dl (8.5-10.1); CARBON DIOXIDE 30 mmol/L (21-32); CREATININE 1.08 mg/dl (0.60-1.20); GLUCOSE 107 mg/dl (70-99); POTASSIUM 3.9 mmol/L (3.5-5.1); SODIUM 138 mmol/L (136-145)
[2018-01-03 06:55] LABS: ALKALINE PHOSPHATASE 125 U/L (45-117); PHOSPHORUS 2.8 mg/dl (2.5-4.9); TOTAL PROTEIN 6.5 gm/dl (6.4-8.2)
[2018-01-03] MEDS: ALBUT/IPRATROP 3MG/0.5MG NEB 3 ML VIAL INH SCH ×4 (07:09→19:07)
[2018-01-03 07:12] VITALS: PULSE 72; O2SAT 97
[2018-01-03] MEDS: ASPIRIN 81 MG ECTAB PO SCH ×2 (07:41→18:06)
[2018-01-03] MEDS: FLUCONAZOLE 100 MG TAB PO SCH (07:41)
[2018-01-03] MEDS: BOOST GLUCOSE CONTROL PO SCH (07:41)
[2018-01-03] MEDS: CEFEPIME IV 2,000 MG in SYRINGE 7.5 ML IV SCH (07:41)
[2018-01-03] MEDS: CLONIDINE HCL 0.1 MG TAB PO SCH ×2 (07:41→21:50)
[2018-01-03] MEDS: POLYETHYLENE (MIRALAX) 17 GM PACK PO SCH (07:42)
[2018-01-03] MEDS: POTASSIUM CHLORIDE 20 MEQ TABCR PO SCH ×2 (07:42→21:51)
[2018-01-03] MEDS: AMLODIPINE BESYLATE 5 MG TAB PO SCH (07:42)
[2018-01-03] MEDS: FUROSEMIDE 20 MG TAB PO SCH (07:42)
[2018-01-03] MEDS: DOCUSATE SODIUM/SENNA 50/8.6MG TAB PO SCH ×2 (07:43→21:50)
[2018-01-03] MEDS: CHOLECALCIFEROL 1000 INTER.UNIT TAB PO SCH (07:43)
[2018-01-03] MEDS: CYANOCOBALAMIN 100 MCG TAB (VIT B-12) PO SCH (07:43)
[2018-01-03] MEDS: INSULIN GLARGINE SOLOSTAR 100 UNITS/ML 3 ML PEN SC SCH ×2 (07:46→21:54)
[2018-01-03] MEDS: HEPARIN SOD 5000 UNIT/0.5 ML CARP SQ SCH ×2 (07:47→21:54)
[2018-01-03 07:54] VITALS: BP 186/63; PULSE 65; TEMP 36.3
[2018-01-03] MEDS: INSULIN ASPART 100 UNITS/ML 3 ML PEN SC SCH ×4 (09:13→21:48)
[2018-01-03 11:34] VITALS: PULSE 74; O2SAT 97
--- NOTE | 2018-01-03 14:16 | Progress Note ---
Subjective Date of Service: Jan 03, 2018. Subjective wbc continue to increase without evidence of new infection, remains afebrile. ortho notes reviewed, no plans for OR. family does not wish for aggressive procedures. remains on abx, tolerating. Problem List Medical Problems: (1) Altered mental status Status: Acute (2) Bradycardia Status: Acute (3) Bronchitis Status: Acute (4) Cellulitis of right hip Status: Acute (5) Expressive aphasia Status: Acute (6) Fall Status: Acute (7) Pneumonia Status: Acute (8) Possible urinary tract infection Status: Acute (9) Postoperative abscess Status: Acute (10) Receptive aphasia Status: Acute (11) Skin tear of right hand without complication Status: Acute Objective Vital Signs Date Time Temp Pulse Resp B/P (MAP) Pulse Ox O2 Delivery O2 Flow Rate FiO2 01/03/18 11:34 74 14 97 Nasal Cannula 2.0 01/03/18 09:33 Nasal Cannula 2.0 01/03/18 07:54 36.3 65 18 186/63 (104) 01/03/18 07:12 72 15 97 Nasal Cannula 2.0 01/03/18 00:00 Nasal Cannula 2.0 01/02/18 23:33 36.5 65 16 158/65 (96) 99 Nasal Cannula 2.0 01/02/18 20:00 Nasal Cannula 2.0 01/02/18 19:33 65 14 98 Nasal Cannula 2.0 01/02/18 17:00 Nasal Cannula 2.0 01/02/18 15:03 64 14 96 Nasal Cannula 2.0 Laboratory Results Item Value Date Time Blood Culture - Final Complete 12/22/17 1610 Blood NO GROWTH Gram Stain - Final Complete 12/22/17 1854 Skin Back, Upper Blood Culture - Final Complete 12/22/17 1445 Blood NO GROWTH Last 24 Hours Test 01/02/18 16:59 01/02/18 20:15 01/03/18 05:39 01/03/18 07:43 Bedside Glucose 199 mg/dl 201 mg/dl 137 mg/dl White Blood Count 39.71 K/uL Red Blood Count 2.80 M/uL Hemoglobin 8.5 g/dL Hematocrit 26.1 % Mean Corpuscular Volume 93.2 fL Mean Corpuscular Hemoglobin 30.4 pg Mean Corpuscular Hemoglobin Concent 32.6 g/dl RDW Standard Deviation 59.6 fL RDW Coefficient of Variation 17.8 % Platelet Count 416 K/uL Mean Platelet Volume 9.3 fL Sodium Level 138 mmol/L Potassium Level 3.9 mmol/L Chloride Level 102 mmol/L Carbon Dioxide Level 30 mmol/L Anion Gap 6.0 mmol/L Blood Urea Nitrogen 33 mg/dl Creatinine 1.08 mg/dl Est Creatinine Clear Calc Drug Dose 31.7 ml/min Estimated GFR () 53.1 Estimated GFR (Non- 45.8 BUN/Creatinine Ratio 30.5 Random Glucose 107 mg/dl Calcium Level 11.9 mg/dl Phosphorus Level 2.8 mg/dl Magnesium Level 2.5 mg/dl Total Bilirubin 0.4 mg/dl Direct Bilirubin < 0.1 mg/dl Aspartate Amino Transf (AST/SGOT) 14 U/L Alanine Aminotransferase (ALT/SGPT) 11 U/L Alkaline Phosphatase 125 U/L Total Protein 6.5 gm/dl Albumin 1.8 gm/dl Test 01/03/18 11:54 Bedside Glucose 121 mg/dl Assessment and Plan (1) Abscess of right hip Assessment & Plan: added fluconazole, continue abx. continue wound care. would continue abx, no plans for OR. bone scan findings noted. ? if underlying vulvar malignancy could be factor in increased wbc. (2) Leukocytosis
--- NOTE | 2018-01-03 14:32 | Palliative Care Consultation ---
Consultation Date of Consultation: Jan 03, 2018. Requesting Physician: Dr Mcdowell Attending Physician: Dr Mcdowell Reason for Consultation: Determine goals of care. Pt is known to me from last admission and her son (CORNELIA ) is also a Palliative patient of [facility]. History of Present Illness Patient is an 87-year-old female who was sent to the emergency room from [facility] for an elevated white blood cell count. Patient had sustained a right hip fracture in February and underwent a total hip replacement, she fell again after discharge from the hospital developed a seroma with drainage. Patient had a wound VAC placed and was treated with IV antibiotics and was transferred to [facility] for further care. Patient also has a history of newly diagnosed vulvar cancer and patient refused further workup at the time of diagnosis. On exam today patient has declined significantly from when she was here last in November, patient was minimally responsive, she would open her eyes briefly, gaze unfocused. Patient did not attempt to speak, was too weak to answer any questions. Nursing reports patient is not taking any p.o. solids, only a few sips of liquids, but was able to take her medications this a.m. Spoke with [id number] on the phone regarding patient's current condition and continued decline, she will speak with the patient's son, regarding goals of care and possible return to [facility] under hospice care. Of note, patient's son is a palliative clinic patient of [facility] and was referred to hospice himself on 01/01 -not sure yet if they contacted a hospice agency. The patient's son has a recent adjustment in his pain medications and is experiencing some side effects of drowsiness and is not able to discuss goals of care at this point. Keesdeai-ug-jyi will discuss patient's current status and recommendation for hospice care at [facility] with patient's son, and I will touch base with them again tomorrow. Family aware patient is doing poorly. Patient's white count on admission on 12/22 was 21.39 it has continued to increase it is now at 39.71. Blood cultures were negative, wound VAC is draining very little fluid, and wound appears to be healing well. Question if increased white count may be due to her vulvar cancer. Past Medical/Surgical History Medical History: Type 2 diabetes, HTN, HLD, chronic kidney disease stage III, cerebrovascular diseasestatus post CVA, osteoporosis, PVD, seizure disorder post CVA, newly diagnosed vulvar cancer Surgical History: Left total hip replacement, right total hip replacementstatus post removal of hardware and debridement of wound, cataract surgery, appendectomy, cholecystectomy Family History Patient is , lives at [facility]. POA is her son Tyree Antonio -phone number is [phone]. Social History Smoking Status: Never Smoker History of Alcohol Use: No Drug Use: none Marital Status: Housing Status: skilled nursing Occupation Status: retired Review of Systems Unable to assess due to patient being minimally responsive Allergies Coded Allergies: Amoxicillin (Verified Allergy, Severe, CVA SYMPTOMS, 12/22/17) Penicillins (Unverified Allergy, Unknown, POSS CX OF CVA, 12/22/17) Risedronate (Unverified Allergy, Unknown, UNKNOWN, 12/22/17) Prednisone (Verified Adverse Reaction, Intermediate, HIGH BS, 12/22/17) Diphenhydramine (Verified Adverse Reaction, Mild, N&V, 12/22/17) Medications Current Inpatient Medications Medications (Trade) Dose Ordered Sig/Zaina Route Start Time Stop Time Status Last Admin Dose Admin Heparin Sodium (Porcine) (Heparin Sq 5000 Unit/0.5ml) 5,000 unit Q12 SQ 12/22/17 21:00 01/21/18 20:59 01/03/18 07:47 5,000 UNIT Acetaminophen (Tylenol Tab) 650 mg Q4H PRN PO 12/22/17 18:45 01/21/18 18:44 01/02/18 21:18 650 MG Amlodipine Besylate (Norvasc Tab) 10 mg DAILY PO 12/23/17 08:00 01/22/18 08:59 01/03/18 07:42 10 MG Aspirin (Ecotrin Tab) 81 mg BIDM PO 12/23/17 08:00 01/22/18 07:59 01/03/18 07:41 81 MG Cholecalciferol (Vitamin D Tab) 1,000 inter.unit DAILY PO 12/23/17 08:00 01/22/18 08:59 01/03/18 07:43 1,000 INTER.UNIT Citalopram Hydrobromide (celeXA TAB) 20 mg HS PO 12/22/17 21:00 01/21/18 20:59 01/02/18 20:19 20 MG Clonidine HCl (Catapres Tab) 0.1 mg BID PO 12/22/17 20:00 01/21/18 20:59 01/03/18 07:41 0.1 MG Cyanocobalamin (Vitamin B-12 Tab) 100 mcg DAILY PO 12/23/17 08:00 01/22/18 08:59 01/03/18 07:43 100 MCG Folic Acid (Folvite Tab) 1 mg DAILY PO 12/23/17 08:00 01/22/18 08:59 01/03/18 07:42 1 MG Albuterol/ Ipratropium (Duoneb) 3 ml QIDR INH 12/22/17 20:00 01/21/18 19:59 01/03/18 11:33 3 ML Senna/Docusate Sodium (Senokot S Tab) 2 tab BID PO 12/22/17 20:00 01/21/18 20:59 01/03/18 07:43 2 TAB Simvastatin (Zocor Tab) 20 mg QPM PO 12/22/17 21:00 01/21/18 20:59 01/02/18 20:17 20 MG Glucose (Glucose 40% Gel) 15-30 GRAMS 15 GRAMS... UD PRN PO 12/22/17 20:15 01/21/18 20:14 Glucose (Glucose Chew Tab) 4-8 Tablets 4 Tabl... UD PRN PO 12/22/17 20:15 01/21/18 20:14 Dextrose (Dextrose 50% 50ML Syringe) 25-50ML OF 50% DW IV FOR... UD PRN IV 12/22/17 20:15 01/21/18 20:14 12/29/17 08:06 25 ML Glucagon (Glucagon Inj) 1 mg UD PRN SQ 12/22/17 20:15 01/21/18 20:14 Miscellaneous Information (Consult) 1 ea UD PRN N/A 12/23/17 01:45 01/22/18 01:44 Potassium Chloride (Klor-Con Tab) 20 meq BID PO 12/23/17 08:00 01/22/18 07:59 01/03/18 07:42 20 MEQ Cefepime HCl (Consult) 1 ea UD PRN N/A 12/23/17 04:00 01/22/18 03:59 Heparin Sodium (Porcine) (Heparin 10 Unit/ ml 5 ml Flush) 5 ml PRN PRN FLUSH 12/23/17 05:15 01/22/18 05:14 01/03/18 07:41 5 ML Furosemide (Lasix Tab) 20 mg QAM PO 12/25/17 08:00 01/24/18 07:59 01/03/18 07:42 20 MG Miconazole Nitrate (Desenex Powder) 1 appln UD PRN EXT 12/25/17 09:45 01/24/18 09:44 Fluconazole (Diflucan Tab) 100 mg QAM PO 12/26/17 08:00 01/05/18 07:59 01/03/18 07:41 100 MG Sodium Chloride ([place] Nasal Bluejacket) 1 sprays BID PRN NA 12/25/17 19:45 01/24/18 19:44 12/25/17 20:45 1 SPRAYS Menthol (Nice Kelly) 1 kelly PRN PRN KELLY 12/25/17 20:00 01/24/18 19:59 12/25/17 20:45 1 KELLY Insulin Aspart (novoLOG ASPART) SLIDING SCALE G... ACHS SC 12/27/17 06:30 01/22/18 06:29 01/02/18 21:26 2 UNITS Vancomycin HCl 1000 mg/Sodium Chloride 270 ml @ 125 mls/hr Q36H IV 01/01/18 10:00 01/11/18 09:59 01/02/18 21:21 125 MLS/HR Enteral Nutritional Formula (Boost Glucose Control) 1 can QDB PO 01/02/18 08:00 02/01/18 07:59 01/03/18 07:41 1 CAN Miscellaneous Information (Consult Glycemic Management Pharmacy) 1 ea UD PRN N/A 01/01/18 20:45 01/31/18 20:44 Insulin Glargine (Lantus Solostar Pen) 6 units BID SC 01/02/18 08:00 02/01/18 07:59 01/03/18 07:46 6 UNITS Cefepime HCl 2000 mg/Syringe 20 ml @ 5 mls/min Q24H IV 01/02/18 08:00 3/31/18 07:59 01/03/18 07:41 5 MLS/MIN Polyethylene (Miralax Powder Packet) 17 gm DAILY PO 01/03/18 08:00 02/02/18 07:59 01/03/18 07:42 17 GM Physical Exam Date Time Temp Pulse Resp B/P (MAP) Pulse Ox O2 Delivery O2 Flow Rate FiO2 01/03/18 11:34 74 14 97 Nasal Cannula 2.0 01/03/18 09:33 Nasal Cannula 2.0 01/03/18 07:54 36.3 65 18 186/63 (104) 01/03/18 07:12 72 15 97 Nasal Cannula 2.0 01/03/18 00:00 Nasal Cannula 2.0 01/02/18 23:33 36.5 65 16 158/65 (96) 99 Nasal Cannula 2.0 01/02/18 20:00 Nasal Cannula 2.0 01/02/18 19:33 65 14 98 Nasal Cannula 2.0 01/02/18 17:00 Nasal Cannula 2.0 01/02/18 15:03 64 14 96 Nasal Cannula 2.0 General Appearance: no apparent distress (Appears comfortable) Eyes: + pertinent finding (Only opened eyes briefly, gaze unfocused) ENT: + pertinent finding (Hard of hearing, hearing aids in place) Respiratory: + decreased breath sounds (On right in both bases) Cardiovascular: regular rate, rhythm, + pertinent finding (Murmur) Abdomen: non tender, soft Musculoskeletal: pertinent finding (Significant weakness) Neurologic/Psychiatric: + pertinent finding (Decreased level of consciousness) Skin: warm/dry (No mottling) Laboratory Results Last 24 Hours Test 01/02/18 16:59 01/02/18 20:15 01/03/18 05:39 01/03/18 07:43 Bedside Glucose 199 mg/dl 201 mg/dl 137 mg/dl White Blood Count 39.71 K/uL Red Blood Count 2.80 M/uL Hemoglobin 8.5 g/dL Hematocrit 26.1 % Mean Corpuscular Volume 93.2 fL Mean Corpuscular Hemoglobin 30.4 pg Mean Corpuscular Hemoglobin Concent 32.6 g/dl RDW Standard Deviation 59.6 fL RDW Coefficient of Variation 17.8 % Platelet Count 416 K/uL Mean Platelet Volume 9.3 fL Sodium Level 138 mmol/L Potassium Level 3.9 mmol/L Chloride Level 102 mmol/L Carbon Dioxide Level 30 mmol/L Anion Gap 6.0 mmol/L Blood Urea Nitrogen 33 mg/dl Creatinine 1.08 mg/dl Est Creatinine Clear Calc Drug Dose 31.7 ml/min Estimated GFR () 53.1 Estimated GFR (Non- 45.8 BUN/Creatinine Ratio 30.5 Random Glucose 107 mg/dl Calcium Level 11.9 mg/dl Phosphorus Level 2.8 mg/dl Magnesium Level 2.5 mg/dl Total Bilirubin 0.4 mg/dl Direct Bilirubin < 0.1 mg/dl Aspartate Amino Transf (AST/SGOT) 14 U/L Alanine Aminotransferase (ALT/SGPT) 11 U/L Alkaline Phosphatase 125 U/L Total Protein 6.5 gm/dl Albumin 1.8 gm/dl Test 01/03/18 11:54 Bedside Glucose 121 mg/dl Assessment & Plan Palliative Performance Scale: 20 % (1) Palliative care encounter Assessment & Plan: Spoke with [id number], she is planning to speak with the patient's son regarding plan of care and possible return to [facility] under hospice (2) Leukocytosis Status: Acute Assessment & Plan: White count increasing despite treatment with IV antibiotics an apparent improvement in the wound.? If related to vulvar cancer (3) Vulvar malignant neoplasm Status: Acute Assessment & Plan: Newly diagnosed, patient refused further workup or treatment (4) Dementia Status: Chronic Assessment & Plan: Patient is declining (5) Abscess of right hip Status: Acute Assessment & Plan: Appears to be improving, on IV antibiotics and wound VAC (6) Altered mental status Status: Acute Assessment & Plan: Not improving, continuing to worsen despite continued treatment for infection. Counseling and Coordination Total time 55 minutes, with greater than 50% of time spent speaking with family and developing a plan of care Discussed with attending physician
[2018-01-03 14:48] VITALS: BP 150/65; PULSE 65; TEMP 36.5; O2SAT 97
--- NOTE | 2018-01-03 15:16 | Progress Note ---
Internal Med Progress Note Date of Service: Jan 03, 2018. Provider Documentation: SUBJECTIVE: The patient was seen and examined. She complains to have generalized weakness. Denies any pain, shortness of breath, any fever or chills. 01/02: Much better today Talking normally Complains of some pain at the back No Fever,chills No pain on movement of the right Hip joint 01/03: Not any better Very weak and lethargic,did not want to talk OBJECTIVE: Vital Signs-as noted below Exam: General-no apparent distress at rest Eyes-normal ENT-normal Neck-supple Lungs-decreased breath sounds at both sites with minimal crackles at the bases Heart-regular, no murmur Abdomen-benign, mildly distended, bowel sounds present. Extremities-trace edema bilaterally Wound VAC in situ over right hip joint;See Image of the wound Wound about the size of 6x5x.5 to 1cm deep,no drainage -wound is improved Neuro-alert and awake Generally weak and lethargic. Clinically no focal neuro deficit. Lab data as noted below. ASSESSMENT & PLAN: Right Hip Joint Infection with Stage III pressure ulcer left foot:controlled and no pain on Hip movement Leukocytosis is secondary CT right LE showed Interval development of periostitis with heterotopic ossifications adjacent to the anterolateral proximal right femoral shaft along with ill-defined fluid collections adjacent to the proximal femoral shaft and posterior lateral to the femoral head, possibly reflecting abscess formations as above with areas of deep tissue air. Moderate subcutaneous edema with skin thickening about the right thigh suggests cellulitis Afebrile on admission Wound cx growth coag neg staph and tawny albicans On Cefepime and Vanco IV ID on board recommended to continue abx and adding fluconazole 100mg po to cover tawny s/p wound debridement of left foot ulcer by Dr. Moralez Continue wound vac in the right hip Continue monitor CBC-increasing WCC Case was discussed with radiologist for possible CT guided aspiration of right hip Radiology reviewed the image and does not see much loculated collection for aspiration Right hip u/s done showed no evidence for a large drainable solitary simple fluid pocket. Case discussed with ID and ortho team Continue cefepime/Vanco/fluconazole as per ID Dr. Luu will discuss with family about the plan As per Ortho team, if Pt will need another surgery, she will need to transfer to a tertiary facility to get it done BONE SCAN -no osteomyelitis Clinically stable Discussed with Orth-they will try to talk to the POA about the wound management -no orthopedic surgery required Increased Leukocytosis No apparent cause PBF-usual infective type of response Will continue current antibiotic Monitor CBC-not nay better May be due to Valval cancer and associated infection ALTERED MENTAL STATUS Encephalopathy secondary to infection More awake today 01/01 CT head showed no acute intracranial abnormality Remained generally weak 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 Leukocytosis from malignancy should be considered once infectious processes worked up or ruled out Consider oncology consult if WBC worsening,PBF -normal response to Infection HYPOXIA / Pleural effusions / CHF -CT chest 12/22/17: Small to moderate sized bilateral pleural effusions are noted in addition to left greater than right bilateral lower lobe consolidation and multifocal lower lobe mucous plugging. Only a minimal portion of the left lower lobe is aerated. These findings suggest atelectasis with superimposed pneumonia -is already on multiple antibiotics -is given incentive spirometry but unlikely to use without assistance, nursing orders to assist patient with incentive spirometer -Supplemental O2 as needed. -November 2017, Ejection Fraction = 60-65%, grade I diastolic dysfunction -patient was on IV lasix BID to reduce fluid overload in lung initially but has needed IV fluids as more hypernatremic, -now on oral Lasix HYPOKALEMIA -resolved K stable Continue potassium supplement Monitor BMP Protein-Calorie Malnutrition encouraged nursing staff to help patient with feeding HYPERTENSION Continue amlodipine and clonidine. BP stable ASCENDING THORACIC ANEURYSM CT scan showed fusiform aneurysmal dilation of the ascending thoracic aorta redemonstrated 4.3 cm Continue follow up as an outpatient DM TYPE 2 Hemoglobin A1c 7.6 on 11/17/17. Basal bolus insulin therapy with Lantus + NovoLog per protocol. Monitor BS VTE PROPHYLAXIS SQ heparin. RESUSCITATION STATUS DNR DISPOSITION: resident of [facility]. Family and next of kin Tyree [phone] helps with medical decision making Discussed with the Son-Palliative care consulted Likely to go for Hospice care down the line Vital Signs: Date Time Temp Pulse Resp B/P (MAP) Pulse Ox O2 Delivery O2 Flow Rate FiO2 01/03/18 14:48 36.5 65 16 150/65 (93) 97 Nasal Cannula 2.0 01/03/18 11:34 74 14 97 Nasal Cannula 2.0 01/03/18 09:33 Nasal Cannula 2.0 01/03/18 07:54 36.3 65 18 186/63 (104) 01/03/18 07:12 72 15 97 Nasal Cannula 2.0 01/03/18 00:00 Nasal Cannula 2.0 01/02/18 23:33 36.5 65 16 158/65 (96) 99 Nasal Cannula 2.0 01/02/18 20:00 Nasal Cannula 2.0 01/02/18 19:33 65 14 98 Nasal Cannula 2.0 01/02/18 17:00 Nasal Cannula 2.0 Lab Results: Results Past 24 Hours Test 01/02/18 16:59 01/02/18 20:15 01/03/18 05:39 01/03/18 07:43 Range/Units Bedside Glucose 199 201 137 70-90 mg/dl White Blood Count 39.71 4.8-10.8 K/uL Red Blood Count 2.80 4.2-5.4 M/uL Hemoglobin 8.5 12.0-16.0 g/dL Hematocrit 26.1 37-47 % Mean Corpuscular Volume 93.2 80-100 fL Mean Corpuscular Hemoglobin 30.4 25-34 pg Mean Corpuscular Hemoglobin Concent 32.6 32-36 g/dl RDW Standard Deviation 59.6 36.4-46.3 fL RDW Coefficient of Variation 17.8 11.5-14.5 % Platelet Count 416 130-400 K/uL Mean Platelet Volume 9.3 7.4-10.4 fL Sodium Level 138 136-145 mmol/L Potassium Level 3.9 3.5-5.1 mmol/L Chloride Level 102 98-107 mmol/L Carbon Dioxide Level 30 21-32 mmol/L Anion Gap 6.0 3-11 mmol/L Blood Urea Nitrogen 33 7-18 mg/dl Creatinine 1.08 0.60-1.20 mg/dl Est Creatinine Clear Calc Drug Dose 31.7 ml/min Estimated GFR () 53.1 Estimated GFR (Non- 45.8 BUN/Creatinine Ratio 30.5 10-20 Random Glucose 107 70-99 mg/dl Calcium Level 11.9 8.5-10.1 mg/dl Phosphorus Level 2.8 2.5-4.9 mg/dl Magnesium Level 2.5 1.8-2.4 mg/dl Total Bilirubin 0.4 0.2-1 mg/dl Direct Bilirubin < 0.1 0-0.2 mg/dl Aspartate Amino Transf (AST/SGOT) 14 15-37 U/L Alanine Aminotransferase (ALT/SGPT) 11 12-78 U/L Alkaline Phosphatase 125 45-117 U/L Total Protein 6.5 6.4-8.2 gm/dl Albumin 1.8 3.4-5.0 gm/dl Test 01/03/18 11:54 Range/Units Bedside Glucose 121 70-90 mg/dl
[2018-01-03 15:24] VITALS: PULSE 77; O2SAT 97
[2018-01-03 19:08] VITALS: PULSE 67; O2SAT 98
[2018-01-03] MEDS: SIMVASTATIN 20 MG TAB PO SCH (21:50)
[2018-01-03] MEDS: CITALOPRAM 20 MG TAB PO SCH (21:50)
[2018-01-04] VITALS (7 sets, daily range): BP systolic 137–159; BP diastolic 52–62; PULSE 62–88; TEMP 36.3–36.9; O2SAT 95–100
[2018-01-04] MEDS: ALBUT/IPRATROP 3MG/0.5MG NEB 3 ML VIAL INH SCH ×4 (07:12→21:30)
[2018-01-04] MEDS: BOOST GLUCOSE CONTROL PO SCH (09:14)
[2018-01-04] MEDS: CLONIDINE HCL 0.1 MG TAB PO SCH ×2 (09:14→21:16)
[2018-01-04] MEDS: POLYETHYLENE (MIRALAX) 17 GM PACK PO SCH (09:15)
[2018-01-04] MEDS: ASPIRIN 81 MG ECTAB PO SCH ×2 (09:15→16:16)
[2018-01-04] MEDS: FUROSEMIDE 20 MG TAB PO SCH (09:15)
[2018-01-04] MEDS: FLUCONAZOLE 100 MG TAB PO SCH (09:15)
[2018-01-04] MEDS: POTASSIUM CHLORIDE 20 MEQ TABCR PO SCH ×2 (09:15→21:16)
[2018-01-04] MEDS: CHOLECALCIFEROL 1000 INTER.UNIT TAB PO SCH (09:16)
[2018-01-04] MEDS: CEFEPIME IV 2,000 MG in SYRINGE 7.5 ML IV SCH (09:16)
[2018-01-04] MEDS: AMLODIPINE BESYLATE 5 MG TAB PO SCH (09:16)
[2018-01-04] MEDS: CYANOCOBALAMIN 100 MCG TAB (VIT B-12) PO SCH (09:16)
[2018-01-04] MEDS: DOCUSATE SODIUM/SENNA 50/8.6MG TAB PO SCH ×2 (09:16→21:17)
[2018-01-04] MEDS: INSULIN ASPART 100 UNITS/ML 3 ML PEN SC SCH ×4 (09:20→21:17)
[2018-01-04] MEDS: INSULIN GLARGINE SOLOSTAR 100 UNITS/ML 3 ML PEN SC SCH ×2 (09:20→21:21)
[2018-01-04] MEDS: HEPARIN SOD 5000 UNIT/0.5 ML CARP SQ SCH ×2 (09:21→21:22)
[2018-01-04] MEDS: ACETAMINOPHEN 325 MG TAB PO PRN ×3 (09:35→21:33)
[2018-01-04] MEDS: VANCOMYCIN IV 1,000 MG in SODIUM CHLORIDE 0.9% 250ML 250 ML IV SCH (10:43)
[2018-01-04 12:18] LABS: CALCIUM 11.4 mg/dl (8.5-10.1); CREATININE 1.12 mg/dl (0.60-1.20); HEMATOCRIT 24.6 % (37-47); MEAN CELL VOLUME 93.9 fL (80-100); MEAN CORPUSCULAR HEMOGLOBIN 30.5 pg (25-34); MEAN CORPUSCULAR HGB CONC 32.5 g/dl (32-36); MEAN PLATELET VOLUME 8.7 fL (7.4-10.4); PLATELET COUNT 403 K/uL (130-400); POTASSIUM 3.9 mmol/L (3.5-5.1); RED CELL DISTRIBUTION WIDTH CV 18.4 % (11.5-14.5); RED CELL DISTRIBUTION WIDTH SD 61.8 fL (36.4-46.3); WHITE BLOOD COUNT 39.49 K/uL (4.8-10.8)
--- NOTE | 2018-01-04 13:38 | Pharmacy Progress Note ---
Pharmacy Glycemic Short Note 2 Date of Service Jan 04, 2018. OUTPATIENT ANTIDIABETIC REGIMEN: * Lantus 6 units SQ BID * A1c = 7.6 % 11/17/17 Test 01/03/18 16:54 01/03/18 19:59 01/04/18 07:44 01/04/18 11:27 Bedside Glucose 104 mg/dl (70-90) 111 mg/dl (70-90) 88 mg/dl (70-90) 150 mg/dl (70-90) Test 01/04/18 11:34 Random Glucose 118 mg/dl (70-99) ASSESSMENT: * Blood sugars at goal, no changes needed in insulin regimen at this time PLAN FOR INPATIENT GLYCEMIC CONTROL: * Basal insulin * Lantus 6 units SQ BID * Bolus insulin * NovoLog per scale ACHS or Q6hrs while NPO * Goal Range: Low 120 mg/dL - High 160 mg/dL * Correction Factor: 25 mg/dL/unit * Nutritional / Prandial insulin per carb ratio of 1 unit per 9 grams CHO consumed PLAN FOR DISCHARGE: * Continue Lantus 6 units SQ BID
--- NOTE | 2018-01-04 15:38 | Palliative Care Progress Note ---
Palliative Care Progress Note Date of Service Jan 04, 2018. Subjective Pt evaluation today including: conversation w/ patient, conversation w/ family , physical exam, chart review, lab review, conversation w/ food consultant, review of inpatient medication list Pain: " all over" , unable to rate, Tylenol effective PO Intake: poor Voiding: krueger catheter in place Patient more alert this afternoon, able to answer a few questions. Asking me why we will not let her . Spoke with [id number] on the phone, obtain information in order to fill out the [facility] form, patient's son is being admitted to hospice today, they are not able to come into the hospital to sign the [facility] form. We will fill out the form according to the conversation I had with the [id number], it will go with the patient at the time of discharge. , Family able to go to [facility] and sign it there. Review of Systems Constitutional: No fever, No chills Eyes: No worsening of vision ENT: + problem reported (Hard of hearing) Respiratory: No shortness of breath Cardiac: No chest pain Abdomen: No pain, No nausea Musculoskeletal: + problem reported (Patient reports pain all over, generalized weakness) Female : No dysuria Neurologic: + memory loss Psychiatric: No anxiety Endo: + fatigue Skin: No rash Objective Vital Signs Date Time Temp Pulse Resp B/P (MAP) Pulse Ox O2 Delivery O2 Flow Rate FiO2 01/04/18 15:02 36.3 64 18 159/52 (87) 99 Nasal Cannula 2.0 01/04/18 11:24 Nasal Cannula 2.0 01/04/18 11:13 62 14 98 Nasal Cannula 2.0 01/04/18 07:30 36.9 63 20 151/62 (91) 100 Nasal Cannula 2.0 01/04/18 07:13 65 14 100 Nasal Cannula 2.0 01/04/18 00:00 Nasal Cannula 2.0 01/04/18 00:00 36.6 68 18 137/61 (86) 95 2.0 01/03/18 19:08 67 14 98 Nasal Cannula 2.0 01/03/18 16:00 Nasal Cannula 2.0 Physical Exam General Appearance: no apparent distress Eyes: EOMI ENT: + pertinent finding (Mild hard of hearing) Respiratory/Chest: no respiratory distress, no accessory muscle use Cardiovascular: regular rate, rhythm, no edema Abdomen: non tender, soft Extremities: no pedal edema Neurologic/Psychiatric: alert Skin: warm/dry Laboratory Results Last 24 Hours Test 01/03/18 16:54 01/03/18 19:59 01/04/18 07:44 01/04/18 11:27 Bedside Glucose 104 mg/dl 111 mg/dl 88 mg/dl 150 mg/dl Test 01/04/18 11:34 White Blood Count 39.49 K/uL Red Blood Count 2.62 M/uL Hemoglobin 8.0 g/dL Hematocrit 24.6 % Mean Corpuscular Volume 93.9 fL Mean Corpuscular Hemoglobin 30.5 pg Mean Corpuscular Hemoglobin Concent 32.5 g/dl RDW Standard Deviation 61.8 fL RDW Coefficient of Variation 18.4 % Platelet Count 403 K/uL Mean Platelet Volume 8.7 fL Sodium Level 136 mmol/L Potassium Level 3.9 mmol/L Chloride Level 101 mmol/L Carbon Dioxide Level 30 mmol/L Anion Gap 5.0 mmol/L Blood Urea Nitrogen 38 mg/dl Creatinine 1.12 mg/dl Est Creatinine Clear Calc Drug Dose 30.5 ml/min Estimated GFR () 50.8 Estimated GFR (Non- 43.8 BUN/Creatinine Ratio 34.2 Random Glucose 118 mg/dl Calcium Level 11.4 mg/dl Magnesium Level 2.4 mg/dl Assessment and Plan (1) Palliative care encounter Assessment & Plan: Plan is for patient to go skilled at [facility], to continue her IV antibiotics and the wound VAC. Patient may then transfer to hospice care at [facility] form filled out according to conversation with [id number], who is also POA (2) Leukocytosis Status: Acute Assessment & Plan: Last checked on 01/03, white count trending upward. ? If due to vulvar cancer (3) Vulvar malignant neoplasm Status: Acute Assessment & Plan: Patient declined further workup or treatment, pain control (4) Dementia Status: Chronic Assessment & Plan: Patient appeared back to her mental baseline on exam today (5) Abscess of right hip Status: Acute Assessment & Plan: Continuing IV antibiotics and wound VAC (6) Altered mental status Status: Acute Assessment & Plan: Patient appears to have returned to her previous baseline Palliative Performance Scale: 30 % Discharge planning: snf facility Counseling and Coordination Total time spent 25 minutes, with greater than 50% of the time spent discussing goals of care with patient and family.
--- NOTE | 2018-01-04 17:53 | Progress Note ---
Internal Med Progress Note Date of Service: Jan 04, 2018. Provider Documentation: SUBJECTIVE: The patient was seen and examined. She complains to have generalized weakness. Denies any pain, shortness of breath, any fever or chills. 01/02: Much better today Talking normally Complains of some pain at the back No Fever,chills No pain on movement of the right Hip joint 01/03: Not any better Very weak and lethargic,did not want to talk 01/04 No change in status Not in any distress Eating a little more OBJECTIVE: Vital Signs-as noted below Exam: General-no apparent distress at rest Eyes-normal ENT-normal Neck-supple Lungs-decreased breath sounds at both sites with minimal crackles at the bases Heart-regular, no murmur Abdomen-benign, mildly distended, bowel sounds present. Extremities-trace edema bilaterally Wound VAC in situ over right hip joint;See Image of the wound Wound about the size of 6x5x.5 to 1cm deep,no drainage -wound is improved Neuro-alert and awake Generally weak and lethargic. Clinically no focal neuro deficit. Lab data as noted below. ASSESSMENT & PLAN: Right Hip Joint Infection with Stage III pressure ulcer left foot:controlled and no pain on Hip movement Leukocytosis is secondary CT right LE showed Interval development of periostitis with heterotopic ossifications adjacent to the anterolateral proximal right femoral shaft along with ill-defined fluid collections adjacent to the proximal femoral shaft and posterior lateral to the femoral head, possibly reflecting abscess formations as above with areas of deep tissue air. Moderate subcutaneous edema with skin thickening about the right thigh suggests cellulitis Afebrile on admission Wound cx growth coag neg staph and tawny albicans On Cefepime and Vanco IV ID on board recommended to continue abx and adding fluconazole 100mg po to cover tawny s/p wound debridement of left foot ulcer by Dr. Moralez Continue wound vac in the right hip Continue monitor CBC-increasing WCC Case was discussed with radiologist for possible CT guided aspiration of right hip Radiology reviewed the image and does not see much loculated collection for aspiration Right hip u/s done showed no evidence for a large drainable solitary simple fluid pocket. Case discussed with ID and ortho team Continue cefepime/Vanco/fluconazole as per ID Dr. Luu will discuss with family about the plan As per Ortho team, if Pt will need another surgery, she will need to transfer to a tertiary facility to get it done BONE SCAN -no osteomyelitis Clinically stable Discussed with Orth-they will try to talk to the POA about the wound management -no orthopedic surgery required No more surgery as per Son and it is not recommended Increased Leukocytosis No apparent cause PBF-usual infective type of response Will continue current antibiotic Monitor CBC-not nay better 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 Leukocytosis from malignancy should be considered once infectious processes worked up or ruled out Consider oncology consult if WBC worsening,PBF -normal response to Infection No further intervention HYPOXIA / Pleural effusions / CHF -CT chest 12/22/17: Small to moderate sized bilateral pleural effusions are noted in addition to left greater than right bilateral lower lobe consolidation and multifocal lower lobe mucous plugging. Only a minimal portion of the left lower lobe is aerated. These findings suggest atelectasis with superimposed pneumonia -is already on multiple antibiotics -is given incentive spirometry but unlikely to use without assistance, nursing orders to assist patient with incentive spirometer -Supplemental O2 as needed. -November 2017, Ejection Fraction = 60-65%, grade I diastolic dysfunction -patient was on IV lasix BID to reduce fluid overload in lung initially but has needed IV fluids as more hypernatremic, -now on oral Lasix -clinically satble HYPOKALEMIA -resolved K stable Continue potassium supplement Monitor BMP Protein-Calorie Malnutrition encouraged nursing staff to help patient with feeding HYPERTENSION Continue amlodipine and clonidine. BP stable ASCENDING THORACIC ANEURYSM CT scan showed fusiform aneurysmal dilation of the ascending thoracic aorta redemonstrated 4.3 cm Continue follow up as an outpatient DM TYPE 2 Hemoglobin A1c 7.6 on 11/17/17. Basal bolus insulin therapy with Lantus + NovoLog per protocol. Monitor BS VTE PROPHYLAXIS SQ heparin. RESUSCITATION STATUS DNR DISPOSITION: resident of [facility]. Family and next of kin Tyree [phone] helps with medical decision making Discussed with the Son-Palliative care consulted Likely to go for Hospice care down the line Will continue current management fro now Likely to change to oral medication and simple dressing for the wound and discharge on Sunday. Vital Signs: Date Time Temp Pulse Resp B/P (MAP) Pulse Ox O2 Delivery O2 Flow Rate FiO2 01/04/18 16:00 Nasal Cannula 2.0 01/04/18 15:29 88 14 98 Nasal Cannula 2.0 01/04/18 15:02 36.3 64 18 159/52 (87) 99 Nasal Cannula 2.0 01/04/18 11:24 Nasal Cannula 2.0 01/04/18 11:13 62 14 98 Nasal Cannula 2.0 01/04/18 07:30 36.9 63 20 151/62 (91) 100 Nasal Cannula 2.0 01/04/18 07:13 65 14 100 Nasal Cannula 2.0 01/04/18 00:00 Nasal Cannula 2.0 01/04/18 00:00 36.6 68 18 137/61 (86) 95 2.0 01/03/18 19:08 67 14 98 Nasal Cannula 2.0 Lab Results: Results Past 24 Hours Test 01/03/18 19:59 01/04/18 07:44 01/04/18 11:27 01/04/18 11:34 Range/Units Bedside Glucose 111 88 150 70-90 mg/dl White Blood Count 39.49 4.8-10.8 K/uL Red Blood Count 2.62 4.2-5.4 M/uL Hemoglobin 8.0 12.0-16.0 g/dL Hematocrit 24.6 37-47 % Mean Corpuscular Volume 93.9 80-100 fL Mean Corpuscular Hemoglobin 30.5 25-34 pg Mean Corpuscular Hemoglobin Concent 32.5 32-36 g/dl RDW Standard Deviation 61.8 36.4-46.3 fL RDW Coefficient of Variation 18.4 11.5-14.5 % Platelet Count 403 130-400 K/uL Mean Platelet Volume 8.7 7.4-10.4 fL Sodium Level 136 136-145 mmol/L Potassium Level 3.9 3.5-5.1 mmol/L Chloride Level 101 98-107 mmol/L Carbon Dioxide Level 30 21-32 mmol/L Anion Gap 5.0 3-11 mmol/L Blood Urea Nitrogen 38 7-18 mg/dl Creatinine 1.12 0.60-1.20 mg/dl Est Creatinine Clear Calc Drug Dose 30.5 ml/min Estimated GFR () 50.8 Estimated GFR (Non- 43.8 BUN/Creatinine Ratio 34.2 10-20 Random Glucose 118 70-99 mg/dl Calcium Level 11.4 8.5-10.1 mg/dl Magnesium Level 2.4 1.8-2.4 mg/dl Test 01/04/18 17:01 Range/Units Bedside Glucose 148 70-90 mg/dl
[2018-01-04] MEDS: CITALOPRAM 20 MG TAB PO SCH (21:16)
[2018-01-04] MEDS: SIMVASTATIN 20 MG TAB PO SCH (21:16)
[2018-01-05] VITALS (8 sets, daily range): BP systolic 122–166; BP diastolic 60–62; PULSE 64–86; TEMP 36.6–36.7; O2SAT 96–99
[2018-01-05] MEDS: ACETAMINOPHEN 325 MG TAB PO PRN ×2 (05:50→23:26)
[2018-01-05 05:53] LABS: HEMATOCRIT 25.6 % (37-47); HEMOGLOBIN 8.3 g/dL (12.0-16.0); MEAN CELL VOLUME 94.1 fL (80-100); MEAN CORPUSCULAR HEMOGLOBIN 30.5 pg (25-34); MEAN CORPUSCULAR HGB CONC 32.4 g/dl (32-36); MEAN PLATELET VOLUME 8.7 fL (7.4-10.4); PLATELET COUNT 381 K/uL (130-400); RED CELL DISTRIBUTION WIDTH CV 18.3 % (11.5-14.5); RED CELL DISTRIBUTION WIDTH SD 61.5 fL (36.4-46.3); WHITE BLOOD COUNT 22.97 K/uL (4.8-10.8)
[2018-01-05 06:17] LABS: CALCIUM 11.3 mg/dl (8.5-10.1); CREATININE 1.11 mg/dl (0.60-1.20); PHOSPHORUS 3.2 mg/dl (2.5-4.9); POTASSIUM 4.1 mmol/L (3.5-5.1)
[2018-01-05] MEDS: ALBUT/IPRATROP 3MG/0.5MG NEB 3 ML VIAL INH SCH ×4 (07:46→19:26)
[2018-01-05] MEDS: CHOLECALCIFEROL 1000 INTER.UNIT TAB PO SCH (08:34)
[2018-01-05] MEDS: CYANOCOBALAMIN 100 MCG TAB (VIT B-12) PO SCH (08:34)
[2018-01-05] MEDS: DOCUSATE SODIUM/SENNA 50/8.6MG TAB PO SCH ×2 (08:34→20:04)
[2018-01-05] MEDS: FUROSEMIDE 20 MG TAB PO SCH (08:34)
[2018-01-05] MEDS: POLYETHYLENE (MIRALAX) 17 GM PACK PO SCH (08:35)
[2018-01-05] MEDS: ASPIRIN 81 MG ECTAB PO SCH ×2 (08:35→18:06)
[2018-01-05] MEDS: BOOST GLUCOSE CONTROL PO SCH (08:35)
[2018-01-05] MEDS: CLONIDINE HCL 0.1 MG TAB PO SCH ×2 (08:35→20:05)
[2018-01-05] MEDS: AMLODIPINE BESYLATE 5 MG TAB PO SCH (08:35)
[2018-01-05] MEDS: POTASSIUM CHLORIDE 20 MEQ TABCR PO SCH ×2 (08:35→20:03)
[2018-01-05] MEDS: CEFEPIME IV 2,000 MG in SYRINGE 7.5 ML IV SCH (08:36)
[2018-01-05] MEDS: INSULIN ASPART 100 UNITS/ML 3 ML PEN SC SCH ×4 (08:44→22:00)
[2018-01-05] MEDS: HEPARIN SOD 5000 UNIT/0.5 ML CARP SQ SCH ×3 (08:44→20:33)
[2018-01-05] MEDS: INSULIN GLARGINE SOLOSTAR 100 UNITS/ML 3 ML PEN SC SCH ×2 (08:45→20:33)
--- NOTE | 2018-01-05 09:18 | Pharmacy Progress Note ---
Pharmacy Glycemic Short Note 2 Date of Service Jan 05, 2018. OUTPATIENT ANTIDIABETIC REGIMEN: * Lantus 6 units SQ BID * A1c = 7.6 % 11/17/17 ASSESSMENT: 01/05/18 * Patient received 14 units of insulin yesterday * Minimal po intake as documented on CHO counts * Fasting BSG on PRP = 74, up to 98 on POC * Will decrease basal to prevent overnight hypoglycemia since this has been trending downward * Postprandial BSGs = 150, 148, 111 * No change to CF/CR PLAN FOR INPATIENT GLYCEMIC CONTROL: * Basal insulin - decrease * Lantus 4 units SQ BID * Bolus insulin * NovoLog per scale ACHS or Q6hrs while NPO * Goal Range: Low 120 mg/dL - High 160 mg/dL * Correction Factor: 25 mg/dL/unit * Nutritional / Prandial insulin per carb ratio of 1 unit per 9 grams CHO consumed PLAN FOR DISCHARGE: * Continue Lantus 6 units SQ BID * A1c acceptable for age
[2018-01-05] MEDS ORDERED: SODIUM CHLORIDE 0.9% 1000ML 1,000 ML IV SCH (11:00)
--- NOTE | 2018-01-05 14:03 | Progress Note ---
Internal Med Progress Note Date of Service: Jan 05, 2018. Provider Documentation: SUBJECTIVE: The patient was seen and examined. She complains to have generalized weakness. Denies any pain, shortness of breath, any fever or chills. 01/02: Much better today Talking normally Complains of some pain at the back No Fever,chills No pain on movement of the right Hip joint 01/03: Not any better Very weak and lethargic,did not want to talk 01/04 No change in status Not in any distress Eating a little more 01/05 Has had some rectal bleed following Evacuation this AM-examined locally-cleared Clinically stable OBJECTIVE: Vital Signs-as noted below Exam: General-no apparent distress at rest Eyes-normal ENT-normal Neck-supple Lungs-decreased breath sounds at both sites with minimal crackles at the bases Heart-regular, no murmur Abdomen-benign, mildly distended, bowel sounds present. Extremities-trace edema bilaterally Wound VAC in situ over right hip joint;See Image of the wound Wound about the size of 6x5x.5 to 1cm deep,no drainage -wound is improved Valval area inspected-Right valval swelling ,no ulceration No bleeding from the rectum/Anus Neuro-alert and awake Generally weak and lethargic. Clinically no focal neuro deficit. Lab data as noted below. ASSESSMENT & PLAN: Hypercalcemia Likely secondary to Dehydration Will give IVF and push more oral fluid Right Hip Joint Infection with Stage III pressure ulcer left foot:controlled and no pain on Hip movement Leukocytosis is secondary CT right LE showed Interval development of periostitis with heterotopic ossifications adjacent to the anterolateral proximal right femoral shaft along with ill-defined fluid collections adjacent to the proximal femoral shaft and posterior lateral to the femoral head, possibly reflecting abscess formations as above with areas of deep tissue air. Moderate subcutaneous edema with skin thickening about the right thigh suggests cellulitis Afebrile on admission Wound cx growth coag neg staph and tawny albicans On Cefepime and Vanco IV ID on board recommended to continue abx and adding fluconazole 100mg po to cover tawny s/p wound debridement of left foot ulcer by Dr. Moralez Continue wound vac in the right hip Continue monitor CBC-increasing WCC Case was discussed with radiologist for possible CT guided aspiration of right hip Radiology reviewed the image and does not see much loculated collection for aspiration Right hip u/s done showed no evidence for a large drainable solitary simple fluid pocket. Case discussed with ID and ortho team Continue cefepime/Vanco/fluconazole as per ID Dr. Luu will discuss with family about the plan As per Ortho team, if Pt will need another surgery, she will need to transfer to a tertiary facility to get it done BONE SCAN -no osteomyelitis Clinically stable Discussed with Orth-they will try to talk to the POA about the wound management -no orthopedic surgery required No more surgery as per Son and it is not recommended Continue to have wound VAC -may need to take off VAC and apply dressing before discharge Increased Leukocytosis-starts to improve from 01/05/18 No apparent cause PBF-usual infective type of response Will continue current antibiotic Monitor CBC-not nay better 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 Leukocytosis from malignancy should be considered once infectious processes worked up or ruled out Consider oncology consult if WBC worsening,PBF -normal response to Infection No further intervention NO Ulceration and or cellulitis HYPOXIA / Pleural effusions / CHF -CT chest 12/22/17: Small to moderate sized bilateral pleural effusions are noted in addition to left greater than right bilateral lower lobe consolidation and multifocal lower lobe mucous plugging. Only a minimal portion of the left lower lobe is aerated. These findings suggest atelectasis with superimposed pneumonia -is already on multiple antibiotics -is given incentive spirometry but unlikely to use without assistance, nursing orders to assist patient with incentive spirometer -Supplemental O2 as needed. -November 2017, Ejection Fraction = 60-65%, grade I diastolic dysfunction -patient was on IV lasix BID to reduce fluid overload in lung initially but has needed IV fluids as more hypernatremic, -now on oral Lasix -clinically stable HYPOKALEMIA -resolved K stable Continue potassium supplement Monitor BMP Protein-Calorie Malnutrition encouraged nursing staff to help patient with feeding HYPERTENSION Continue amlodipine and clonidine. BP stable ASCENDING THORACIC ANEURYSM CT scan showed fusiform aneurysmal dilation of the ascending thoracic aorta redemonstrated 4.3 cm Continue follow up as an outpatient DM TYPE 2 Hemoglobin A1c 7.6 on 11/17/17. Basal bolus insulin therapy with Lantus + NovoLog per protocol. Monitor BS VTE PROPHYLAXIS SQ heparin. RESUSCITATION STATUS DNR DISPOSITION: resident of [facility]. Family and next of kin Tyree [phone] helps with medical decision making Discussed with the Son-Palliative care consulted Likely to go for Hospice care down the line Will continue current management fro now Likely to change to oral medication and simple dressing for the wound and discharge on Sunday. Vital Signs: Date Time Temp Pulse Resp B/P (MAP) Pulse Ox O2 Delivery O2 Flow Rate FiO2 01/05/18 11:10 74 16 98 Nasal Cannula 2.0 01/05/18 09:30 Nasal Cannula 2.0 01/05/18 07:48 66 16 98 Nasal Cannula 2.0 01/05/18 07:36 36.6 64 16 166/62 (96) 99 2.0 01/05/18 00:25 Nasal Cannula 2.0 01/04/18 22:27 01/04/18 21:35 79 16 98 Nasal Cannula 2.0 01/04/18 16:00 Nasal Cannula 2.0 01/04/18 15:29 88 14 98 Nasal Cannula 2.0 01/04/18 15:02 36.3 64 18 159/52 (87) 99 Nasal Cannula 2.0 Lab Results: Results Past 24 Hours Test 01/04/18 17:01 01/04/18 19:32 01/05/18 05:38 01/05/18 07:55 Range/Units Bedside Glucose 148 111 98 70-90 mg/dl White Blood Count 22.97 4.8-10.8 K/uL Red Blood Count 2.72 4.2-5.4 M/uL Hemoglobin 8.3 12.0-16.0 g/dL Hematocrit 25.6 37-47 % Mean Corpuscular Volume 94.1 80-100 fL Mean Corpuscular Hemoglobin 30.5 25-34 pg Mean Corpuscular Hemoglobin Concent 32.4 32-36 g/dl RDW Standard Deviation 61.5 36.4-46.3 fL RDW Coefficient of Variation 18.3 11.5-14.5 % Platelet Count 381 130-400 K/uL Mean Platelet Volume 8.7 7.4-10.4 fL Sodium Level 138 136-145 mmol/L Potassium Level 4.1 3.5-5.1 mmol/L Chloride Level 103 98-107 mmol/L Carbon Dioxide Level 31 21-32 mmol/L Anion Gap 4.0 3-11 mmol/L Blood Urea Nitrogen 39 7-18 mg/dl Creatinine 1.11 0.60-1.20 mg/dl Est Creatinine Clear Calc Drug Dose 30.8 ml/min Estimated GFR () 51.3 Estimated GFR (Non- 44.3 BUN/Creatinine Ratio 34.7 10-20 Random Glucose 74 70-99 mg/dl Calcium Level 11.3 8.5-10.1 mg/dl Phosphorus Level 3.2 2.5-4.9 mg/dl Magnesium Level 2.6 1.8-2.4 mg/dl Microbiology Results 01/05/18 MRSA DNA Surveillance Screen - Final, Complete Specimen Negative for MRSA by DNA Probe
[2018-01-05] MEDS: CITALOPRAM 20 MG TAB PO SCH (20:04)
[2018-01-05] MEDS: SIMVASTATIN 20 MG TAB PO SCH (20:04)
[2018-01-05] MEDS ORDERED: VANCOMYCIN TROUGH ONE (21:30)
[2018-01-05] MEDS: VANCOMYCIN IV 1,000 MG in SODIUM CHLORIDE 0.9% 250ML 250 ML IV SCH (22:25)
[2018-01-06] VITALS (7 sets, daily range): BP systolic 144–161; BP diastolic 51–63; PULSE 63–74; TEMP 35.4–36.8; O2SAT 97–100
[2018-01-06] MEDS: ACETAMINOPHEN 325 MG TAB PO PRN ×2 (05:33→13:28)
[2018-01-06 05:54] LABS: HEMATOCRIT 26.5 % (37-47); HEMOGLOBIN 8.2 g/dL (12.0-16.0); MEAN CELL VOLUME 94.3 fL (80-100); MEAN CORPUSCULAR HEMOGLOBIN 29.2 pg (25-34); MEAN CORPUSCULAR HGB CONC 30.9 g/dl (32-36); MEAN PLATELET VOLUME 9.1 fL (7.4-10.4); PLATELET COUNT 406 K/uL (130-400); RED CELL DISTRIBUTION WIDTH CV 17.9 % (11.5-14.5); RED CELL DISTRIBUTION WIDTH SD 60.8 fL (36.4-46.3); WHITE BLOOD COUNT 21.02 K/uL (4.8-10.8)
[2018-01-06 06:27] LABS: CALCIUM 10.9 mg/dl (8.5-10.1); CREATININE 1.03 mg/dl (0.60-1.20); POTASSIUM 3.6 mmol/L (3.5-5.1)
[2018-01-06] MEDS: ALBUT/IPRATROP 3MG/0.5MG NEB 3 ML VIAL INH SCH ×4 (07:52→19:38)
[2018-01-06] MEDS: POTASSIUM CHLORIDE 20 MEQ TABCR PO SCH ×2 (08:19→21:43)
[2018-01-06] MEDS: DOCUSATE SODIUM/SENNA 50/8.6MG TAB PO SCH ×2 (08:19→21:43)
[2018-01-06] MEDS: CLONIDINE HCL 0.1 MG TAB PO SCH ×2 (08:19→21:43)
[2018-01-06] MEDS: ASPIRIN 81 MG ECTAB PO SCH ×2 (08:19→18:18)
[2018-01-06] MEDS: CHOLECALCIFEROL 1000 INTER.UNIT TAB PO SCH (08:20)
[2018-01-06] MEDS: CYANOCOBALAMIN 100 MCG TAB (VIT B-12) PO SCH (08:20)
[2018-01-06] MEDS: AMLODIPINE BESYLATE 5 MG TAB PO SCH (08:20)
[2018-01-06] MEDS: FUROSEMIDE 20 MG TAB PO SCH (08:20)
[2018-01-06] MEDS: POLYETHYLENE (MIRALAX) 17 GM PACK PO SCH (08:20)
[2018-01-06] MEDS: HEPARIN SOD 5000 UNIT/0.5 ML CARP SQ SCH ×2 (08:26→21:59)
[2018-01-06] MEDS: INSULIN ASPART 100 UNITS/ML 3 ML PEN SC SCH ×5 (08:30→21:54)
[2018-01-06] MEDS: BOOST GLUCOSE CONTROL PO SCH (08:31)
[2018-01-06] MEDS: CEFEPIME IV 2,000 MG in SYRINGE 7.5 ML IV SCH (08:31)
--- NOTE | 2018-01-06 08:37 | Pharmacy Progress Note ---
Pharmacy Abx Dose Short Note Date of Service Jan 06, 2018. Assessment & Plan Assessment 87 year old female receiving vancomycin/cefepime for treatment of cellulitis Day # 16 of antimicrobial therapy. Plan Vancomycin * Trough level of 25.8 mcg/mL is supratherapeutic. Vancomycin will be held pending a random level ordered ~48 hours from last dose * Change to 750 mg IV every 40 hours (on hold pending level) * Goal trough level : 15 to 20 mcg/mL * Random level ordered for: 01/07/18 @2100 Continue cefepime 2g q24 Pharmacy will continue to follow and will adjust dose/frequency as necessary. Thank you.
--- NOTE | 2018-01-06 09:00 | Pharmacy Progress Note ---
Pharmacy Glycemic Short Note 2 Date of Service Jan 06, 2018. OUTPATIENT ANTIDIABETIC REGIMEN: * Lantus 6 units SQ BID * A1c = 7.6 % 11/17/17 Test 01/05/18 16:20 01/05/18 20:08 01/06/18 05:25 01/06/18 08:02 Bedside Glucose 123 mg/dl (70-90) 119 mg/dl (70-90) 97 mg/dl (70-90) Random Glucose 65 mg/dl (70-99) ASSESSMENT: 01/06/18 * Ms. Antonio received only 10 units of insulin yesterday * Continues w/ poor po intake * No changes to causes of insulin resistance * Fasting BSG low - will reduce basal dose further, and change to once daily since it is such a small dose. Will adjust to this PM since BSGs low this AM * Postprandial BSGs within normal limits but will loosen CF/CR to be more consistent with basal dose of 6 units 01/05/18 * Patient received 14 units of insulin yesterday * Minimal po intake as documented on CHO counts * Fasting BSG on PRP = 74, up to 98 on POC * Will decrease basal to prevent overnight hypoglycemia since this has been trending downward * Postprandial BSGs = 150, 148, 111 * No change to CF/CR PLAN FOR INPATIENT GLYCEMIC CONTROL: * Basal insulin - decrease further and change to once daily * Lantus 6 units qPM * Bolus insulin * NovoLog per scale ACHS or Q6hrs while NPO * Goal Range: Low 120 mg/dL - High 160 mg/dL * LOOSEN Correction Factor: 40 mg/dL/unit * LOOSEN Nutritional / Prandial insulin per carb ratio of 1 unit per 20 grams CHO consumed PLAN FOR DISCHARGE: * Continue Lantus 6 units SQ BID if po intake improves by discharge * A1c acceptable for age
--- NOTE | 2018-01-06 12:05 | Progress Note ---
Internal Med Progress Note Date of Service: Jan 06, 2018. Provider Documentation: SUBJECTIVE: The patient was seen and examined. She complains to have generalized weakness. Denies any pain, shortness of breath, any fever or chills. 01/02: Much better today Talking normally Complains of some pain at the back No Fever,chills No pain on movement of the right Hip joint 01/03: Not any better Very weak and lethargic,did not want to talk 01/04 No change in status Not in any distress Eating a little more 01/05 Has had some rectal bleed following Evacuation this AM-examined locally-cleared Clinically stable 01/06: Remains stable ,generally weak OBJECTIVE: Vital Signs-as noted below Exam: General-no apparent distress at rest Eyes-normal ENT-normal Neck-supple Lungs-decreased breath sounds at both sites with minimal crackles at the bases Heart-regular, no murmur Abdomen-benign, mildly distended, bowel sounds present. Extremities-trace edema bilaterally Wound VAC in situ over right hip joint;See Image of the wound Wound about the size of 6x5x.5 to 1cm deep,no drainage -wound is improved Valval area inspected-Right valval swelling ,no ulceration No bleeding from the rectum/Anus Neuro-alert and awake Generally weak and lethargic. Clinically no focal neuro deficit. Lab data as noted below. ASSESSMENT & PLAN: Hypercalcemia Likely secondary to Dehydration Will give IVF and push more oral fluid A \little better today Needs to drink more water Right Hip Joint Infection with Stage III pressure ulcer left foot:controlled and no pain on Hip movement Leukocytosis is secondary CT right LE showed Interval development of periostitis with heterotopic ossifications adjacent to the anterolateral proximal right femoral shaft along with ill-defined fluid collections adjacent to the proximal femoral shaft and posterior lateral to the femoral head, possibly reflecting abscess formations as above with areas of deep tissue air. Moderate subcutaneous edema with skin thickening about the right thigh suggests cellulitis Afebrile on admission Wound cx growth coag neg staph and tawny albicans On Cefepime and Vanco IV ID on board recommended to continue abx and adding fluconazole 100mg po to cover tawny s/p wound debridement of left foot ulcer by Dr. Moralez Continue wound vac in the right hip Continue monitor CBC-increasing WCC Case was discussed with radiologist for possible CT guided aspiration of right hip Radiology reviewed the image and does not see much loculated collection for aspiration Right hip u/s done showed no evidence for a large drainable solitary simple fluid pocket. Case discussed with ID and ortho team Continue cefepime/Vanco/fluconazole as per ID Dr. Luu will discuss with family about the plan As per Ortho team, if Pt will need another surgery, she will need to transfer to a tertiary facility to get it done BONE SCAN -no osteomyelitis Clinically stable Discussed with Orth-they will try to talk to the POA about the wound management -no orthopedic surgery required No more surgery as per Son and it is not recommended Continue to have wound VAC -may need to take off VAC and apply dressing before discharge Increased Leukocytosis-starts to improve from 01/05/18 No apparent cause PBF-usual infective type of response Will continue current antibiotic Monitor CBC-not nay better 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 Leukocytosis from malignancy should be considered once infectious processes worked up or ruled out Consider oncology consult if WBC worsening,PBF -normal response to Infection No further intervention NO Ulceration and or cellulitis HYPOXIA / Pleural effusions / CHF -CT chest 12/22/17: Small to moderate sized bilateral pleural effusions are noted in addition to left greater than right bilateral lower lobe consolidation and multifocal lower lobe mucous plugging. Only a minimal portion of the left lower lobe is aerated. These findings suggest atelectasis with superimposed pneumonia -is already on multiple antibiotics -is given incentive spirometry but unlikely to use without assistance, nursing orders to assist patient with incentive spirometer -Supplemental O2 as needed. -November 2017, Ejection Fraction = 60-65%, grade I diastolic dysfunction -patient was on IV lasix BID to reduce fluid overload in lung initially but has needed IV fluids as more hypernatremic, -now on oral Lasix -clinically stable HYPOKALEMIA -resolved K stable Continue potassium supplement Monitor BMP Protein-Calorie Malnutrition encouraged nursing staff to help patient with feeding HYPERTENSION Continue amlodipine and clonidine. BP stable ASCENDING THORACIC ANEURYSM CT scan showed fusiform aneurysmal dilation of the ascending thoracic aorta redemonstrated 4.3 cm Continue follow up as an outpatient DM TYPE 2 Hemoglobin A1c 7.6 on 11/17/17. Basal bolus insulin therapy with Lantus + NovoLog per protocol. Monitor BS VTE PROPHYLAXIS SQ heparin. RESUSCITATION STATUS DNR DISPOSITION: resident of [facility]. Family and next of kin Tyree [phone] helps with medical decision making Discussed with the Son-Palliative care consulted Likely to go for Hospice care down the line Will continue current management fro now Likely to change to oral medication and simple dressing for the wound and discharge on Sunday. Likely discharge tomorrow Vital Signs: Date Time Temp Pulse Resp B/P (MAP) Pulse Ox O2 Delivery O2 Flow Rate FiO2 01/06/18 11:09 67 16 98 Nasal Cannula 2.0 01/06/18 08:00 Nasal Cannula 2.0 01/06/18 07:52 66 16 98 Nasal Cannula 2.0 01/06/18 07:50 36.8 63 20 161/51 (87) 100 2.0 01/06/18 00:16 Nasal Cannula 2.0 01/05/18 22:48 36.7 72 16 122/60 (80) 96 Nasal Cannula 2.0 01/05/18 20:30 Nasal Cannula 2.0 01/05/18 20:26 86 127/61 (83) 01/05/18 19:26 70 16 98 Nasal Cannula 2.0 01/05/18 16:00 Nasal Cannula 2.0 01/05/18 15:49 70 16 98 Nasal Cannula 2.0 01/05/18 15:16 36.7 71 18 148/61 (90) 99 Nasal Cannula 2.0 Lab Results: Results Past 24 Hours Test 01/05/18 16:20 01/05/18 20:08 01/05/18 21:31 01/06/18 05:25 Range/Units Bedside Glucose 123 119 70-90 mg/dl Vancomycin Level Trough 25.8 SEE COMMENT mcg/ml White Blood Count 21.02 4.8-10.8 K/uL Red Blood Count 2.81 4.2-5.4 M/uL Hemoglobin 8.2 12.0-16.0 g/dL Hematocrit 26.5 37-47 % Mean Corpuscular Volume 94.3 80-100 fL Mean Corpuscular Hemoglobin 29.2 25-34 pg Mean Corpuscular Hemoglobin Concent 30.9 32-36 g/dl RDW Standard Deviation 60.8 36.4-46.3 fL RDW Coefficient of Variation 17.9 11.5-14.5 % Platelet Count 406 130-400 K/uL Mean Platelet Volume 9.1 7.4-10.4 fL Sodium Level 138 136-145 mmol/L Potassium Level 3.6 3.5-5.1 mmol/L Chloride Level 104 98-107 mmol/L Carbon Dioxide Level 29 21-32 mmol/L Anion Gap 5.0 3-11 mmol/L Blood Urea Nitrogen 37 7-18 mg/dl Creatinine 1.03 0.60-1.20 mg/dl Est Creatinine Clear Calc Drug Dose 33.2 ml/min Estimated GFR () 56.2 Estimated GFR (Non- 48.5 BUN/Creatinine Ratio 35.8 10-20 Random Glucose 65 70-99 mg/dl Calcium Level 10.9 8.5-10.1 mg/dl Test 01/06/18 08:02 01/06/18 11:17 Range/Units Bedside Glucose 97 148 70-90 mg/dl
[2018-01-06] MEDS ORDERED: SOAP SUDS ENEMA PR ONE (15:24)
[2018-01-06] MEDS ORDERED: SOAP SUDS ENEMA PR PRN (15:30)
[2018-01-06] MEDS ORDERED: INSULIN GLARGINE SOLOSTAR 100 UNITS/ML 3 ML PEN SC SCH (20:00)
[2018-01-06] MEDS: CITALOPRAM 20 MG TAB PO SCH (21:44)
[2018-01-06] MEDS: SIMVASTATIN 20 MG TAB PO SCH (21:44)
[2018-01-07] MEDS: ACETAMINOPHEN 325 MG TAB PO PRN (05:26)
[2018-01-07 06:25] LABS: CREATININE 1.16 mg/dl (0.60-1.20)
[2018-01-07 06:50] VITALS: PULSE 62; O2SAT 98
[2018-01-07] MEDS: ALBUT/IPRATROP 3MG/0.5MG NEB 3 ML VIAL INH SCH ×3 (06:50→15:25)
--- NOTE | 2018-01-07 08:07 | Pharmacy Progress Note ---
Pharmacy Glycemic Short Note 2 Date of Service Jan 07, 2018. OUTPATIENT ANTIDIABETIC REGIMEN: * Lantus 6 units SQ BID * A1c = 7.6 % 11/17/17 ASSESSMENT: 01/07/18: * Good glycemic control over past 24 hours, BSGs ranged from 97-168 * No changes to causes of insulin resistance * Fasting BSG slightly below goal therefore no changes to basal insulin * Postprandial BSGs slightly elevated will continue current CF/CR- patient to be discharged 01/06/18 * Ms. Antonio received only 10 units of insulin yesterday * Continues w/ poor po intake * No changes to causes of insulin resistance * Fasting BSG low - will reduce basal dose further, and change to once daily since it is such a small dose. Will adjust to this PM since BSGs low this AM * Postprandial BSGs within normal limits but will loosen CF/CR to be more consistent with basal dose of 6 units PLAN FOR INPATIENT GLYCEMIC CONTROL: * Basal insulin * Lantus 6 units qPM * Bolus insulin * NovoLog per scale ACHS or Q6hrs while NPO * Goal Range: Low 120 mg/dL - High 160 mg/dL * LOOSEN Correction Factor: 40 mg/dL/unit * LOOSEN Nutritional / Prandial insulin per carb ratio of 1 unit per 20 grams CHO consumed PLAN FOR DISCHARGE: * Continue Lantus 6 units SQ BID if po intake improves by discharge * A1c acceptable for age
[2018-01-07 08:11] VITALS: BP 147/63; PULSE 66; TEMP 36.8; O2SAT 99
[2018-01-07] MEDS: INSULIN ASPART 100 UNITS/ML 3 ML PEN SC SCH ×2 (08:38→12:40)
[2018-01-07] MEDS: POLYETHYLENE (MIRALAX) 17 GM PACK PO SCH (08:46)
[2018-01-07] MEDS: BOOST GLUCOSE CONTROL PO SCH (08:46)
[2018-01-07] MEDS: CHOLECALCIFEROL 1000 INTER.UNIT TAB PO SCH (08:47)
[2018-01-07] MEDS: DOCUSATE SODIUM/SENNA 50/8.6MG TAB PO SCH (08:47)
[2018-01-07] MEDS: CEFEPIME IV 2,000 MG in SYRINGE 7.5 ML IV SCH (08:47)
[2018-01-07] MEDS: POTASSIUM CHLORIDE 20 MEQ TABCR PO SCH (08:47)
[2018-01-07] MEDS: CYANOCOBALAMIN 100 MCG TAB (VIT B-12) PO SCH (08:47)
[2018-01-07] MEDS: AMLODIPINE BESYLATE 5 MG TAB PO SCH (08:47)
[2018-01-07] MEDS: CLONIDINE HCL 0.1 MG TAB PO SCH (08:48)
[2018-01-07] MEDS: FUROSEMIDE 20 MG TAB PO SCH (08:48)
[2018-01-07] MEDS: ASPIRIN 81 MG ECTAB PO SCH (08:48)
[2018-01-07] MEDS: HEPARIN SOD 5000 UNIT/0.5 ML CARP SQ SCH (08:49)
[2018-01-07 10:14] LABS: HEMATOCRIT 25.1 % (37-47); HEMOGLOBIN 8.2 g/dL (12.0-16.0); MEAN CELL VOLUME 93.7 fL (80-100); MEAN CORPUSCULAR HEMOGLOBIN 30.6 pg (25-34); MEAN CORPUSCULAR HGB CONC 32.7 g/dl (32-36); MEAN PLATELET VOLUME 8.8 fL (7.4-10.4); PLATELET COUNT 335 K/uL (130-400); RED CELL DISTRIBUTION WIDTH CV 18.3 % (11.5-14.5); RED CELL DISTRIBUTION WIDTH SD 61.6 fL (36.4-46.3)
[2018-01-07 10:33] LABS: CALCIUM 10.6 mg/dl (8.5-10.1); CREATININE 1.07 mg/dl (0.60-1.20); PHOSPHORUS 2.7 mg/dl (2.5-4.9)
[2018-01-07 11:09] VITALS: PULSE 60; O2SAT 99
--- NOTE | 2018-01-07 11:19 | Progress Note ---
Internal Med Progress Note Date of Service: Jan 07, 2018. Provider Documentation: SUBJECTIVE: The patient was seen and examined. She complains to have generalized weakness. Denies any pain, shortness of breath, any fever or chills. 01/02: Much better today Talking normally Complains of some pain at the back No Fever,chills No pain on movement of the right Hip joint 01/03: Not any better Very weak and lethargic,did not want to talk 01/04 No change in status Not in any distress Eating a little more 01/05 Has had some rectal bleed following Evacuation this AM-examined locally-cleared Clinically stable 01/06: Remains stable ,generally weak 01/07 No new symptoms Bowel moved with Soap Suds Enema Generally weak OBJECTIVE: Vital Signs-as noted below Exam: General-no apparent distress at rest Eyes-normal ENT-normal Neck-supple Lungs-decreased breath sounds at both sites with minimal crackles at the bases Heart-regular, no murmur Abdomen-benign, mildly distended, bowel sounds present. Extremities-trace edema bilaterally Wound VAC in situ over right hip joint;See Image of the wound Wound about the size of 6x5x.5 to 1cm deep,no drainage -wound is improved Valval area inspected-Right valval swelling ,no ulceration No bleeding from the rectum/Anus Neuro-alert and awake Generally weak and lethargic. Clinically no focal neuro deficit. Lab data as noted below. ASSESSMENT & PLAN: Hypercalcemia-stable Likely secondary to Dehydration Will give IVF and push more oral fluid A \little better today Needs to drink more water Remains stable Right Hip Joint Infection with Stage III pressure ulcer left foot:controlled and no pain on Hip movement Leukocytosis is secondary CT right LE showed Interval development of periostitis with heterotopic ossifications adjacent to the anterolateral proximal right femoral shaft along with ill-defined fluid collections adjacent to the proximal femoral shaft and posterior lateral to the femoral head, possibly reflecting abscess formations as above with areas of deep tissue air. Moderate subcutaneous edema with skin thickening about the right thigh suggests cellulitis Afebrile on admission Wound cx growth coag neg staph and tawny albicans On Cefepime and Vanco IV ID on board recommended to continue abx and adding fluconazole 100mg po to cover tawny s/p wound debridement of left foot ulcer by Dr. Moralez Continue wound vac in the right hip Continue monitor CBC-increasing WCC Case was discussed with radiologist for possible CT guided aspiration of right hip Radiology reviewed the image and does not see much loculated collection for aspiration Right hip u/s done showed no evidence for a large drainable solitary simple fluid pocket. Case discussed with ID and ortho team Continue cefepime/Vanco/fluconazole as per ID Dr. Luu will discuss with family about the plan As per Ortho team, if Pt will need another surgery, she will need to transfer to a tertiary facility to get it done BONE SCAN -no osteomyelitis Clinically stable Discussed with Orth-they will try to talk to the POA about the wound management -no orthopedic surgery required No more surgery as per Son and it is not recommended Continue to have wound VAC and IV antibiotics for now Will need IV antibiotics for 6 weeks more Increased Leukocytosis-starts to improve from 01/05/18 No apparent cause PBF-usual infective type of response Will continue current antibiotic Monitor CBC-not nay better 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 Leukocytosis from malignancy should be considered once infectious processes worked up or ruled out Consider oncology consult if WBC worsening,PBF -normal response to Infection No further intervention NO Ulceration and or cellulitis HYPOXIA / Pleural effusions / CHF -CT chest 12/22/17: Small to moderate sized bilateral pleural effusions are noted in addition to left greater than right bilateral lower lobe consolidation and multifocal lower lobe mucous plugging. Only a minimal portion of the left lower lobe is aerated. These findings suggest atelectasis with superimposed pneumonia -is already on multiple antibiotics -is given incentive spirometry but unlikely to use without assistance, nursing orders to assist patient with incentive spirometer -Supplemental O2 as needed. -November 2017, Ejection Fraction = 60-65%, grade I diastolic dysfunction -patient was on IV lasix BID to reduce fluid overload in lung initially but has needed IV fluids as more hypernatremic, -now on oral Lasix -clinically stable to be transferred HYPOKALEMIA -resolved K stable Continue potassium supplement Monitor BMP Protein-Calorie Malnutrition encouraged nursing staff to help patient with feeding HYPERTENSION Continue amlodipine and clonidine. BP stable ASCENDING THORACIC ANEURYSM CT scan showed fusiform aneurysmal dilation of the ascending thoracic aorta redemonstrated 4.3 cm Continue follow up as an outpatient DM TYPE 2 Hemoglobin A1c 7.6 on 11/17/17. Basal bolus insulin therapy with Lantus + NovoLog per protocol. Monitor BS VTE PROPHYLAXIS SQ heparin. RESUSCITATION STATUS DNR DISPOSITION: resident of [facility]. Family and next of kin Tyree [phone] helps with medical decision making Discussed with the Son-Palliative care consulted Likely to go for Hospice care down the line Will continue current management fro now Will go to on IV antibiotics and Wound VAC -transition to Hospice care after finishing the Wound VAC and Antibiotics Vital Signs: Date Time Temp Pulse Resp B/P (MAP) Pulse Ox O2 Delivery O2 Flow Rate FiO2 01/07/18 11:09 60 16 99 Nasal Cannula 2.0 01/07/18 08:11 36.8 66 16 147/63 (91) 99 2.0 01/07/18 06:50 62 16 98 Nasal Cannula 2.0 01/07/18 00:20 Nasal Cannula 2.0 01/06/18 21:41 74 144/56 (85) 97 Nasal Cannula 2.0 01/06/18 20:40 Nasal Cannula 2.0 01/06/18 19:38 72 19 97 Nasal Cannula 2.0 01/06/18 16:00 Nasal Cannula 2.0 01/06/18 15:41 35.4 66 16 159/63 (95) 100 Nasal Cannula 2.0 01/06/18 15:21 70 16 97 Nasal Cannula 2.0 Lab Results: Results Past 24 Hours Test 01/06/18 11:17 01/06/18 16:26 01/06/18 20:35 01/07/18 05:37 Range/Units Bedside Glucose 148 168 156 70-90 mg/dl Creatinine 1.16 0.60-1.20 mg/dl Est Creatinine Clear Calc Drug Dose 29.5 ml/min Estimated GFR () 48.7 Estimated GFR (Non- 42.0 Test 01/07/18 07:46 01/07/18 10:02 Range/Units Bedside Glucose 118 70-90 mg/dl White Blood Count 19.40 4.8-10.8 K/uL Red Blood Count 2.68 4.2-5.4 M/uL Hemoglobin 8.2 12.0-16.0 g/dL Hematocrit 25.1 37-47 % Mean Corpuscular Volume 93.7 80-100 fL Mean Corpuscular Hemoglobin 30.6 25-34 pg Mean Corpuscular Hemoglobin Concent 32.7 32-36 g/dl RDW Standard Deviation 61.6 36.4-46.3 fL RDW Coefficient of Variation 18.3 11.5-14.5 % Platelet Count 335 130-400 K/uL Mean Platelet Volume 8.8 7.4-10.4 fL Sodium Level 138 136-145 mmol/L Potassium Level 4.0 3.5-5.1 mmol/L Chloride Level 104 98-107 mmol/L Carbon Dioxide Level 30 21-32 mmol/L Anion Gap 4.0 3-11 mmol/L Blood Urea Nitrogen 37 7-18 mg/dl Creatinine 1.07 0.60-1.20 mg/dl Est Creatinine Clear Calc Drug Dose 32.0 ml/min Estimated GFR () 53.7 Estimated GFR (Non- 46.3 BUN/Creatinine Ratio 34.9 10-20 Random Glucose 136 70-99 mg/dl Calcium Level 10.6 8.5-10.1 mg/dl Phosphorus Level 2.7 2.5-4.9 mg/dl Magnesium Level 2.4 1.8-2.4 mg/dl
[2018-01-07] MEDS ORDERED: NUTR-7 PO (14:02)
[2018-01-07] MEDS ORDERED: HPRIS5M SQ (14:02)
[2018-01-07] MEDS ORDERED: SOAP SUDS ENEMA PR (14:02)
[2018-01-07] MEDS ORDERED: MRLP17 PO (14:02)
[2018-01-07] MEDS ORDERED: CFP2IV IV (14:05)
[2018-01-07] MEDS ORDERED: NF1094 IV (14:05)
--- NOTE | 2018-01-07 14:12 | Discharge Instructions ---
Discharge Instructions Date of Service Jan 07, 2018. Admission Reason for Admission: Altered Mental Status Discharge Discharge Diagnosis / Problem: Right Hip Joint Infection,Chronic wound right Hip,Metabolic encephalopathy Discharge Goals Goal(s): Prevent Disease Progression Activity Recommendations Activity Level: Assistance Required Therapies: Physical Therapy, Occupational Therapy Transition to Hospice care after finishing Antibiotic and wound VAC . Additional Information Patient informed of condition: Yes Advance Directives: No DNR: Yes Level of Care: Skilled Communicable Disease: No Prognosis: Stable Oxygen at (LPM): 2 liters/mion via NC Obrien Catheter: No Instructions / Follow-Up Instructions / Follow-Up As Per provider.Check Vancomycin trough before the Next dose and keep it between 15 to 20, check PRP and CBC weekly Current Hospital Diet Patient's current hospital diet: Diabetes Type 2 Diet Discharge Diet Recommended Diet: Diabetes Type 2 Diet Pending Studies Studies pending at discharge: no Laboratory Results Hemoglobin A1c Test 11/17/17 06:25 Range/Units Estimated Average Glucose 171 mg/dl Hemoglobin A1c 7.6 H 4.5-5.6 % Medical Emergencies . Who to Call and When: Medical Emergencies: If at any time you feel your situation is an emergency, please call 911 immediately. . Non-Emergent Contact Non-Emergency issues call your: Primary Care Provider . Past History Medical & Surgical History: (1) Palliative care encounter (2) Leukocytosis (3) CKD (chronic kidney disease) stage 3, GFR 30-59 ml/min (4) Depression (5) Seizure disorder (6) DM type 2 (diabetes mellitus, type 2) (7) Vulvar malignant neoplasm (8) Abscess of right hip (9) Altered mental status (10) Hx of cataract surgery (11) Status post appendectomy (12) Status post cholecystectomy (13) History of total hip replacement (14) S/P tonsillectomy and adenoidectomy . "Provider Documentation" section prepared by Gema Mcdowell. . Credit Risk Specialist Recommendations Credit Risk Specialist Recommendations: Continue Wound VAC and care as per wound clinic recommendation. ID follow up as per wound clinc Core Measure Problem Core Measures: None
[2018-01-07 14:18] VITALS: BP 147/63; PULSE 60; TEMP 36.8; O2SAT 99
[2018-01-07 15:25] VITALS: PULSE 67; O2SAT 98
--- NOTE | 2018-01-07 15:32 | Pharmacy Progress Note ---
Pharmacy Abx Dose Short Note Date of Service Jan 07, 2018. Assessment & Plan Assessment 87 year old female receiving vancomycin/cefepime for treatment of ssti/ cellulitis Day # 17 of antimicrobial therapy. Plan Patient to be discharged today Vancomycin * Previous plan was to get random level tonight @~48 hours prior to resuming dose, patient has been having elevated troughs * Recommended starting 1000 mg q48H for ease of dosing (versus 750 mg q40H), dose due at 2200 and check level prior to the next scheduled dose. Cefepime * 2 gm q24Hr for CrCL >30 Pharmacy will continue to follow and will adjust dose/frequency as necessary. Thank you.
[2018-01-07] MEDS ORDERED: VANCOMYCIN RANDOM ONE (21:00)
[2018-01-07] MEDS ORDERED: VANCOMYCIN IV 750 MG in SODIUM CHLORIDE 0.9% 250ML 250 ML IV SCH (22:00)
--- NOTE | 2018-01-08 08:28 | Discharge Summary ---
Discharge Summary Date of Service Jan 08, 2018. Discharge Summary Admission Date: Dec 22, 2017 at 17:38 Discharge Date: Jan 07, 2018 [facility] Principal Diagnosis: Right Hip Joint Infection,Chronic wound right Hip,Metabolic encephalopathy Secondary Diagnoses/Problems: Please see H&P and Hospital Progress note Consultations: Wound care,ID ,Ortho and Palliative Medication Reconciliation New Medications: Cefepime HCl (Cefepime) 2 Gm Inj 2 GM IV Q24H for 42 Days Vancomycin HCl (Vancomycin HCl) 100 Mg/Ml Inj 1 GM IV Q2D for 42 Days [id number] Heparin Sod (Porcine) (Heparin Sodium) 5,000 Unit/0.5 Ml Inj 5000 UNIT SQ Q12 for 30 Days, #60 DOSE Nutritional Supplements (Boost) 1 Liq Liq 1 CAN PO QDB for 30 Days, #30 Polyethylene (Miralax) 17 Gm Pow 17 GM PO DAILY for 30 Days, #30 DOSE [Soap Suds Enema] () 1 EA EA 1 EA SD DAILY PRN for constipation for 30 Days, #30 DOSE Continued Medications: Acetaminophen Tab (Tylenol) 325 Mg Tab 650 MG PO Q4H PRN for Pain, TAB administer 650mg every 4 hours ans needed for pain on a scale of 1-10. Do not exceed 3000mg in 24 hours Amino Acids (Argiment) 1 Jacob Jacob 1 PKT PO BID give 1 packet twice a day by mouth in 6oz liquid at 1000, 1800 Amlodipine (Norvasc) 10 Mg Tab 10 MG PO DAILY Aspirin (Aspirin Ec) 81 Mg Tab 81 MG PO BIDM Calcium Carbonate-Cholecalcife (Caltrate 600+D) 1 Tab Tab 1 TAB PO BID Cholecalciferol (Vitamin D-3) 1,000 Unit Tab 1000 UNITS PO DAILY Citalopram Hydrobromide (Citalopram Hydrobromide) 20 Mg Tab 20 MG PO HS Clonidine Hcl (Catapres) 0.1 Mg Tab 0.1 MG PO BID Collagenase (Santyl) 250 Unit/Gm Oin 1 APPLN TOP UD cleanse wound to left great toe with saline, apply nickel thick santyl and apply nonadherent and tape Cyanocobalamin (Vitamin B-12) 100 Mcg Tab 100 MCG PO DAILY Folic Acid (Folvite) 1 Mg Tab 1 MG PO DAILY Furosemide (Lasix) 20 Mg Tab 20 MG PO DAILY Home O2 Therapy (Oxygen) Gas 2 LITERS NA CONTINOUS, BTL Insulin Glargine (Lantus) 100 Unit/Ml Inj 6 UNITS SC BID Ipratropium-Albuterol (Duoneb) 3 Ml Nebu 1 TREATMENT INH QID, INHA one vial in nebulizer four times a day for 10 days Probiotic Product (Probiotic) 1 Tab Tab 1 TAB PO DAILY Sennosides-Docusate Sodium (Senna S) 1 Tab Tab 2 TABS PO BID Simvastatin (Zocor) 20 Mg Tab 20 MG PO QPM, TAB Zinc Oxide (Topical) (Desitin Maximum Strength) 40 % Pst 1 APPLN TOP UD apply thick layer to 4 stage 2 pressure ulcers to bilateral buttocks q shift Discontinued Medications: Acetaminophen Tab (Tylenol) 325 Mg Tab 650 MG PO Q4H PRN for Fever, TAB give 650mg every 4 hours as nedded for temp>100. Do not exceed 3000mg in 24 hours Ertapenem Sodium (Invanz) 1 Gm Inj 1 GM IV DAILY administer one gram of invanz in 50ml of ns daily Vancomycin HCl in Sodium Chlor (VANCOMYCIN in NSS) 1 Inj Inj 1.25 GM IV Q36H Zolpidem Tartrate (Ambien) 5 Mg Tab 5 MG PO HS PRN for insomia, TAB Admission Information HPI (per Admitting provider): 87-year-old female followed by Dr. Vega at [facility]. History of hypertension, diabetes, dementia, and other problems noted below. Currently being treated for right hip infection. Recent cultures from the right hip have grown Peptostreptococcus sp, Prevotella sp, Eggerthella lenta, Actinomyces israelii. Receiving intravenous vancomycin and ertapenem at the assisted. Receiving wound treatment with Wound Vac. CBC was performed that showed a white count of 25,000. Noted to have increasing confusion. O2 saturations reportedly low at [facility]. Patient unable to provide any additional history because of her confusion. Past Medical/Surgical History Chronic and Resolved Medical Problems: (1) Anxiety disorder Status: Chronic (2) Cerebrovascular disease Permanent Comment: s/p stroke without significant residual Status: Chronic (3) CKD (chronic kidney disease) stage 3, GFR 30-59 ml/min Status: Chronic (4) Dementia Status: Chronic (5) Depression Status: Chronic (6) DM type 2 (diabetes mellitus, type 2) Status: Chronic (7) Hearing loss Status: Chronic (8) Hyperlipidemia Status: Chronic (9) Hypertension Status: Chronic (10) Osteoporosis Status: Chronic (11) PVD (peripheral vascular disease) Status: Chronic (12) Seizure disorder Status: Chronic (13) Vulvar malignant neoplasm Status: Chronic Surgical Problems: (1) History of total hip replacement Status: Chronic (2) Hx of cataract surgery Status: Chronic (3) S/P tonsillectomy and adenoidectomy Status: Chronic (4) Status post appendectomy Status: Chronic (5) Status post cholecystectomy Status: Chronic . Family History FH: lung cancer BROTHER FH: stroke FATHER Oral cancer MOTHER Social History Smoking Status: Never Smoker Alcohol Use: none Drug Use: none Marital Status: Housing status: assisted Occupational Status: retired Immunizations History of Influenza Vaccine: Yes History of Tetanus Vaccine?: Yes History of Pneumococcal: Yes Pneumococcal Date: Sep 05, 2002 History of Hepatitis B Vaccine: No Allergies Coded Allergies: Amoxicillin (Verified Allergy, Severe, CVA SYMPTOMS, 12/22/17) Penicillins (Unverified Allergy, Unknown, POSS CX OF CVA, 12/22/17) Risedronate (Unverified Allergy, Unknown, UNKNOWN, 12/22/17) Prednisone (Verified Adverse Reaction, Intermediate, HIGH BS, 12/22/17) Diphenhydramine (Verified Adverse Reaction, Mild, N&V, 12/22/17) Home Medications Scheduled Amino Acids (Argiment), 1 PKT PO BID Amlodipine (Norvasc), 10 MG PO DAILY Aspirin (Aspirin Ec), 81 MG PO BIDM Calcium Carbonate-Cholecalcife (Caltrate 600+D), 1 TAB PO BID Cholecalciferol (Vitamin D-3), 1,000 UNITS PO DAILY Citalopram Hydrobromide (Citalopram Hydrobromide), 20 MG PO HS Clonidine Hcl (Catapres), 0.1 MG PO BID Collagenase (Santyl), 1 APPLN TOP UD Cyanocobalamin (Vitamin B-12), 100 MCG PO DAILY Ertapenem Sodium (Invanz), 1 GM IV DAILY Folic Acid (Folvite), 1 MG PO DAILY Furosemide (Lasix), 20 MG PO DAILY Home O2 Therapy (Oxygen), 2 LITERS NA CONTINOUS Insulin Glargine (Lantus), 6 UNITS SC BID Ipratropium-Albuterol (Duoneb), 1 TREATMENT INH QID Probiotic Product (Probiotic), 1 TAB PO DAILY Sennosides-Docusate Sodium (Senna S), 2 TABS PO BID Simvastatin (Zocor), 20 MG PO QPM Vancomycin HCl in Sodium Chlor (VANCOMYCIN in NSS), 1.25 GM IV Q36H Zinc Oxide (Topical) (Desitin Maximum Strength), 1 APPLN TOP UD Scheduled PRN Acetaminophen Tab (Tylenol), 650 MG PO Q4H PRN for Pain Acetaminophen Tab (Tylenol), 650 MG PO Q4H PRN for Fever Zolpidem Tartrate (Ambien), 5 MG PO HS PRN for insomia Review of Systems Unable to obtain due to patient's condition. . Physical Exam H&P v2 Physical Exam Vital Signs Date Time Temp Pulse Resp B/P (MAP) Pulse Ox O2 Delivery O2 Flow Rate FiO2 12/22/17 17:02 71 20 174/69 99 Nasal Cannula 4.0 12/22/17 15:50 72 20 167/73 100 Nasal Cannula 12/22/17 14:33 37.2 74 163/69 97 Nasal Cannula 4.0 CONSTITUTIONAL vital signs as noted above elderly female, no acute distress EYES conjunctivae clear; lids normal pupils equal and reactive to light EARS, NOSE, MOUTH AND THROAT external inspection of ears and nose unremarkable hard of hearing oropharynx clear upper and lower dentures NECK no masses; trachea midline thyroid normal RESPIRATORY poor respiratory effort; no respiratory distress decreased breath sounds at bases CARDIOVASCULAR regular rate and rhythm III/ systolic murmur at base and apex; no gallop appreciated carotid arteries 2/2 abdominal aorta not palpable pedal pulses diminished capillary refill toes < 2 seconds no pretibial edema GASTROINTESTINAL normal bowel sounds, soft, nontender; no palpable masses no hepatomegaly; no splenomegaly Obrien catheter draining slightly turbid urine LYMPHATIC no cervical adenopathy MUSCULOSKELETAL no cyanosis; no digital clubbing no calf tenderness diffuse weakness PICC RUE without surrounding erythema or drainage SKIN pustular rash on back right hip wound with Wound Vac applied, surrounding erythema multiple stage 2 sacral decubiti ulcer left posterior heal stage 2, 10 mm ulcer overlying left medial MTP stage 2, 20 mm warm and dry NEUROLOGIC PERRL, EOMI PSYCHIATRIC confused . Diagnostics H&P v2 Diagnostics Laboratory Results Results Past 24 Hours Test 12/22/17 14:45 12/22/17 14:51 12/22/17 14:55 12/22/17 15:00 Range/Units White Blood Count 21.39 4.8-10.8 K/uL Red Blood Count 2.99 4.2-5.4 M/uL Hemoglobin 8.9 12.0-16.0 g/dL Hematocrit 27.6 37-47 % Mean Corpuscular Volume 92.3 80-100 fL Mean Corpuscular Hemoglobin 29.8 25-34 pg Mean Corpuscular Hemoglobin Concent 32.2 32-36 g/dl Platelet Count 327 130-400 K/uL Mean Platelet Volume 8.5 7.4-10.4 fL Neutrophils (%) (Auto) 82.7 % Lymphocytes (%) (Auto) 9.3 % Monocytes (%) (Auto) 5.0 % Eosinophils (%) (Auto) 2.2 % Basophils (%) (Auto) 0.1 % Neutrophils # (Auto) 17.69 1.4-6.5 K/uL Lymphocytes # (Auto) 1.99 1.2-3.4 K/uL Monocytes # (Auto) 1.08 0.11-0.59 K/uL Eosinophils # (Auto) 0.46 0-0.5 K/uL Basophils # (Auto) 0.03 0-0.2 K/uL RDW Standard Deviation 56.7 36.4-46.3 fL RDW Coefficient of Variation 16.8 11.5-14.5 % Immature Granulocyte % (Auto) 0.7 % Immature Granulocyte # (Auto) 0.14 0.00-0.02 K/uL Schistocytes 1+ Prothrombin Time 11.9 9.0-12.0 SECONDS Prothromb Time International Ratio 1.1 0.9-1.1 Sodium Level 141 136-145 mmol/L Potassium Level 3.1 3.5-5.1 mmol/L Chloride Level 103 98-107 mmol/L Carbon Dioxide Level 34 21-32 mmol/L Anion Gap 4.0 15.0 16-25 mmol/L Blood Urea Nitrogen 16 7-18 mg/dl Creatinine 0.76 0.60-1.20 mg/dl Estimated GFR () 81.2 Estimated GFR (Non- 70.0 BUN/Creatinine Ratio 21.7 10-20 Random Glucose 182 70-99 mg/dl Calcium Level 9.8 8.5-10.1 mg/dl Magnesium Level 1.8 1.8-2.4 mg/dl Total Bilirubin 0.3 0.2-1 mg/dl Direct Bilirubin 0.1 0-0.2 mg/dl Aspartate Amino Transf (AST/SGOT) 11 15-37 U/L Alanine Aminotransferase (ALT/SGPT) 9 12-78 U/L Alkaline Phosphatase 109 45-117 U/L Total Creatine Kinase 10 26-192 U/L Creatine Kinase MB < 0.5 0.5-3.6 ng/ml Creatine Kinase MB Ratio 0-3.0 Troponin I 0.018 0-0.045 ng/ml Total Protein 6.2 6.4-8.2 gm/dl Albumin 1.9 3.4-5.0 gm/dl Bedside Lactic Acid Venous 1.22 0.90-1.70 mmol/L Bedside Hemoglobin 9.2 12.0-16.0 g/dl Bedside Hematocrit 27 37-47 % Bedside Sodium 144 135-144 mEq/L Bedside Potassium 3.1 3.3-5.0 mEq/L Bedside Chloride 98 101-112 mEq/L Bedside Total CO2 35 24-31 mEq/l Bedside Blood Urea Nitrogen 16 7-18 mg/dl Bedside Creatinine 0.9 0.6-1.3 mg/dl Bedside Glucose (other) 186 70-99 mg/dl Bedside Ionized Calcium (Antonio) 1.37 1.12-1.32 mmol/l Urine Color YELLOW Urine Appearance CLEAR CLEAR Urine pH 6.0 4.5-7.5 Urine Specific [place] 1.014 1.000-1.030 Urine Protein 1+ NEG Urine Glucose (UA) NEG NEG Urine Ketones NEG NEG Urine Occult Blood 2+ NEG Urine Nitrite NEG NEG Urine Bilirubin NEG NEG Urine Urobilinogen NEG NEG Urine Leukocyte Esterase TRACE NEG Urine WBC (Auto) 10-30 0-5 /hpf Urine RBC (Auto) >30 0-4 /hpf Urine Hyaline Casts (Auto) 0-5 /lpf Urine Epithelial Cells (Auto) >30 0-5 /lpf Urine Bacteria (Auto) NEG NEG Urine Renal Epithelial Cells 0-5 /lpf Urine Pathogenic Casts 0 /lpf Microbiology Results 12/22/17 Blood Culture, Received Pending 12/22/17 Blood Culture, Received Pending 12/22/17 Urine Culture, Received Pending Diagnostic Radiology CHEST ONE VIEW PORTABLE COMPARISON: Chest radiograph 12/13/2017 FINDINGS: Cardiac silhouette is enlarged. Atherosclerosis of the aorta. Study is limited secondary to patient rotation to the left. Pulmonary vascular congestion is noted without pneumothorax. Linear subsegmental opacity of the lateral left midlung. Small bilateral pleural effusions, left greater then right with hazy perihilar and bibasilar opacities. There is mild progression of the bibasilar opacities. Right-sided PICC is unchanged. Surgical clips project of the right upper abdomen. Chronic post traumatic changes of the right proximal humerus. Bones appear grossly intact. IMPRESSION: 1. Cardiomegaly with mild pulmonary edema. 2. Small bilateral pleural effusions with mildly worsened hazy bibasilar opacities suggesting atelectasis or pneumonia. The above report was generated using voice recognition software. It may contain grammatical, syntax or spelling errors. Electronically signed by: Shane Mcdermott M.D. 12/22/2017 2:49 PM Dictated Date/Time: 12/22/2017 2:[address] (CHEST) THORAX WITHOUT COMPARISON: Chest radiograph of same day, CTA chest 12/04/2017 FINDINGS: Study is limited secondary to patient positioning. No dominant thyroid nodule identified. There is mild to moderate multichamber cardiac enlargement with small pericardial effusion. Extensive coronary arterial disease is noted along with aortic annular calcifications. Dilation of the ascending thoracic aorta measures up to 4.3 x 4.3 cm. Moderate atherosclerosis of the thoracic aorta. Distal descending thoracic aorta measures 3.4 cm transversely. Right-sided PICC terminates in the mid SVC. Small to moderate bilateral pleural effusions without pneumothorax. Mild bilateral interlobular septal thickening of the upper lung zones suggests minimal pulmonary vascular congestion. There are subsegmental right and segmental left basilar consolidative opacities with the left lower lobe nearly completely opacified. Mucous plugging is noted within the bilateral lower lobe bronchi. Mild bilateral bronchial wall thickening. Thickening of the left adrenal gland partially imaged. Moderate diffuse body wall edema. Osteoporotic appearance of the bones. Chronic fracture deformity of the proximal right humerus. 20% anterior endplate compression deformity of the T12 vertebral body without retropulsion is noted, unchanged from comparison. IMPRESSION: 1. Small to moderate sized bilateral pleural effusions are noted in addition to left greater than right bilateral lower lobe consolidation and multifocal lower lobe mucous plugging. Only a minimal portion of the left lower lobe is aerated. These findings suggest atelectasis with superimposed pneumonia also within the differential. 2. Cardiomegaly with minimal pulmonary edema manifested by intralobular septal thickening. Small pericardial effusion with moderate body wall edema compatible with fluid overload. 3. Fusiform aneurysmal dilation of the ascending thoracic aorta redemonstrated, 4.3 cm. 4. Additional findings as above. Electronically signed by: Shane Mcdermott M.D. 12/22/2017 4:05 PM Dictated Date/Time: 12/22/2017 3:[address] RT LOWER EXTREMITY WITH COMPARISON: Right hip radiographs 11/18/2017 FINDINGS: Evaluation of the soft tissues about the right hip is limited secondary to streak artifact from right hip arthroplasty. The femoral and acetabular components appear to be in satisfactory positioning without evidence of loosening or periprosthetic fracture. No malalignment. The there is a transversely oriented lucency of the posterior acetabulum with partially sclerotic margins nicely seen on 80 of series 3. The imaged sacrum appears intact. Interval development of periostitis with pericortical calcifications about the anterolateral proximal diaphyseal right femur measuring up to 4.9 x 2.0 x 6.7 cm nicely seen on image 264 of series 3 and image 37 of series 300. Foci of air noted along the superior margin of these calcifications, image 227 series 3. Ill-defined peripherally enhancing fluid collection posterior and inferior to these calcifications measures up to 2.4 x 3.1 x 3.8 cm nicely seen on image 346 of series 4, partially obscured by streak artifact. Fluid along the posterior superior margin of the femoral head measures up to 4.8 x 4.0 cm on image 107 series 4. Moderate subcutaneous edema about the right hip and imaged right thigh with associated skin thickening. Large right inguinal lymph nodes are seen measuring up to 3.4 x 2.1 cm. Extensive peripheral vascular disease. Partially imaged large calcified lesion of the right hemipelvis measures over 5 cm in length suggesting calcified fibroid. Large stool ball of the rectal vault. IMPRESSION: 1. Right hip arthroplasty in satisfactory alignment without evidence of hardware fracture or loosening. Ill-defined linear lucency with peripheral cortication involves the posterior acetabulum which may reflect a subacute or chronic fracture without malalignment. 2. Interval development of periostitis with heterotopic ossifications adjacent to the anterolateral proximal right femoral shaft along with ill-defined fluid collections adjacent to the proximal femoral shaft and posterior lateral to the femoral head, possibly reflecting abscess formations as above with areas of deep tissue air. Moderate subcutaneous edema with skin thickening about the right thigh suggests cellulitis. 3. Enlarged right inguinal lymph nodes measuring up to 2.1 cm in short are likely reactive. 4. Moderate constipation. The above report was generated using voice recognition software. It may contain grammatical, syntax or spelling errors. Electronically signed by: Shane Mdcermott M.D. 12/22/2017 4:26 PM Dictated Date/Time: 12/22/2017 4:14 PM . EKG EKG performed at 14:56 reviewed and demonstrated NSR at 73 / minute, T-wave flattening lateral precordial leads. . Impression H&P v2 Impression Assessment and Plan LEUKOCYTOSIS Currently being treated for multi-organism right hip infection with vancomycin and ertapenem. WBC 25,000. Afebrile. Does not appear to be septic. [id number] lactate 1.22. Possible abscess and/or osteomyelitis right hip. Possible pneumonia (vs atelectasis). Possible UTI. Possible cellulitis on back. Consider PICC infection, although site looks OK. Continue IV vancomycin to cover gram + organisms, including possible healthcare associated pneumonia. Change gram-negative coverage from ertapenem to cefepime. Add clindamycin for anaerobic coverage. Consult ID and Wound Care Nursing. HYPOXIA CT chest demonstrates bilateral pleural effusions, bibasilar consolidation and mucous plugging, atelectasis left lower lobe. Management of possible pneumonia as discussed above. Deep breaths / incentive spirometry as tolerated. Consider Pulmonary Medicine consultation if no improvement, although conservative management may be most appropriate. Supplemental O2 as needed. PLEURAL EFFUSIONS Bilateral pleural effusions, previously noted but larger. Seen by Pulmonary Medicine in past; thoracentesis is not performed. Pleural effusions may be secondary to CHF or other etiologies. Management of CHF as discussed below. Follow. CHF Bilateral pleural effusions and some degree of pulmonary edema suggested on CT of chest. Recent echocardiogram showed normal left ventricular systolic function, grade 1 diastolic dysfunction. Acute on chronic left ventricular diastolic heart failure. Titrate diuretics. ALTERED MENTAL STATUS Probable encephalopathy secondary to infection. Follow. HYPOKALEMIA PO repletion. Follow. HYPERTENSION Hemodynamically stable. Continue amlodipine and clonidine. DM TYPE 2 Fairly well controlled. Hemoglobin A1c 7.6 on 11/17/17. Random blood sugar 182. Basal bolus insulin therapy with Lantus + NovoLog per protocol. SUSPECTED VULVAR MALIGNANCY Patient has opted not to pursue treatment. Symptomatic management PRN. VTE PROPHYLAXIS Moderately high risk for VTE. SQ heparin. RESUSCITATION STATUS DNR per previous discussions. DISPOSITION Admit to Med-Surg Unit. [facility]. Son given update by phone. . Resuscitation Status VTE Prophylaxis Will order VTE Prophylaxis: Yes . Physical Exam (per Admitting): CONSTITUTIONAL vital signs as noted above elderly female, no acute distress EYES conjunctivae clear; lids normal pupils equal and reactive to light EARS, NOSE, MOUTH AND THROAT external inspection of ears and nose unremarkable hard of hearing oropharynx clear upper and lower dentures NECK no masses; trachea midline thyroid normal RESPIRATORY poor respiratory effort; no respiratory distress decreased breath sounds at bases CARDIOVASCULAR regular rate and rhythm III/ systolic murmur at base and apex; no gallop appreciated carotid arteries 2/2 abdominal aorta not palpable pedal pulses diminished capillary refill toes < 2 seconds no pretibial edema GASTROINTESTINAL normal bowel sounds, soft, nontender; no palpable masses no hepatomegaly; no splenomegaly Obrien catheter draining slightly turbid urine LYMPHATIC no cervical adenopathy MUSCULOSKELETAL no cyanosis; no digital clubbing no calf tenderness diffuse weakness PICC RUE without surrounding erythema or drainage SKIN pustular rash on back right hip wound with Wound Vac applied, surrounding erythema multiple stage 2 sacral decubiti ulcer left posterior heal stage 2, 10 mm ulcer overlying left medial MTP stage 2, 20 mm warm and dry NEUROLOGIC PERRL, EOMI PSYCHIATRIC confused . Hospital Course Hypercalcemia-stable Likely secondary to Dehydration Will give IVF and push more oral fluid A \\little better today Needs to drink more water Remains stable Right Hip Joint Infection with Stage III pressure ulcer left foot:controlled and no pain on Hip movement Leukocytosis is secondary CT right LE showed Interval development of periostitis with heterotopic ossifications adjacent to the anterolateral proximal right femoral shaft along with ill-defined fluid collections adjacent to the proximal femoral shaft and posterior lateral to the femoral head, possibly reflecting abscess formations as above with areas of deep tissue air. Moderate subcutaneous edema with skin thickening about the right thigh suggests cellulitis Afebrile on admission Wound cx growth coag neg staph and tawny albicans On Cefepime and Vanco IV ID on board recommended to continue abx and adding fluconazole 100mg po to cover tawny s/p wound debridement of left foot ulcer by Dr. Moralez Continue wound vac in the right hip Continue monitor CBC-increasing WCC Case was discussed with radiologist for possible CT guided aspiration of right hip Radiology reviewed the image and does not see much loculated collection for aspiration Right hip u/s done showed no evidence for a large drainable solitary simple fluid pocket. Case discussed with ID and ortho team Continue cefepime/Vanco/fluconazole as per ID Dr. Luu will discuss with family about the plan As per Ortho team, if Pt will need another surgery, she will need to transfer to a tertiary facility to get it done BONE SCAN -no osteomyelitis Clinically stable Discussed with Orth-they will try to talk to the POA about the wound management -no orthopedic surgery required No more surgery as per Son and it is not recommended Continue to have wound VAC and IV antibiotics for now Will need IV antibiotics for 6 weeks more Increased Leukocytosis-starts to improve from 01/05/18 No apparent cause PBF-usual infective type of response Will continue current antibiotic Monitor CBC-not nay better 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 Leukocytosis from malignancy should be considered once infectious processes worked up or ruled out Consider oncology consult if WBC worsening,PBF -normal response to Infection No further intervention NO Ulceration and or cellulitis HYPOXIA / Pleural effusions / CHF -CT chest 12/22/17: Small to moderate sized bilateral pleural effusions are noted in addition to left greater than right bilateral lower lobe consolidation and multifocal lower lobe mucous plugging. Only a minimal portion of the left lower lobe is aerated. These findings suggest atelectasis with superimposed pneumonia -is already on multiple antibiotics -is given incentive spirometry but unlikely to use without assistance, nursing orders to assist patient with incentive spirometer -Supplemental O2 as needed. -November 2017, Ejection Fraction = 60-65%, grade I diastolic dysfunction -patient was on IV lasix BID to reduce fluid overload in lung initially but has needed IV fluids as more hypernatremic, -now on oral Lasix -clinically stable to be transferred HYPOKALEMIA -resolved K stable Continue potassium supplement Monitor BMP Protein-Calorie Malnutrition encouraged nursing staff to help patient with feeding HYPERTENSION Continue amlodipine and clonidine. BP stable ASCENDING THORACIC ANEURYSM CT scan showed fusiform aneurysmal dilation of the ascending thoracic aorta redemonstrated 4.3 cm Continue follow up as an outpatient DM TYPE 2 Hemoglobin A1c 7.6 on 11/17/17. Basal bolus insulin therapy with Lantus + NovoLog per protocol. Monitor BS VTE PROPHYLAXIS SQ heparin. RESUSCITATION STATUS DNR DISPOSITION: [facility]. Family and next of kin Tyree [phone] helps with medical decision making Discussed with the Son-Palliative care consulted Likely to go for Hospice care down the line Will continue current management fro now Will go to on IV antibiotics and Wound VAC -transition to Hospice care after finishing the Wound VAC and Antibiotics Total time spent on discharge = 40 minutes This includes examination of the patient, discharge planning, medication reconciliation, and communication with other providers. Discharge Instructions Date of Service Jan 07, 2018. Admission Reason for Admission: Altered Mental Status Discharge Discharge Diagnosis / Problem: Right Hip Joint Infection,Chronic wound right Hip,Metabolic encephalopathy Discharge Goals Goal(s): Prevent Disease Progression Activity Recommendations Activity Level: Assistance Required Therapies: Physical Therapy, Occupational Therapy Transition to Hospice care after finishing Antibiotic and wound VAC . Additional Information Patient informed of condition: Yes Advance Directives: No DNR: Yes Level of Care: Skilled Communicable Disease: No Prognosis: Stable Oxygen at (LPM): 2 liters/mion via CT Obrien Catheter: No Instructions / Follow-Up Instructions / Follow-Up As Per provider.Check Vancomycin trough before the Next dose and keep it between 15 to 20, check PRP and CBC weekly Current Hospital Diet Patient's current hospital diet: Diabetes Type 2 Diet Discharge Diet Recommended Diet: Diabetes Type 2 Diet Pending Studies Studies pending at discharge: no Laboratory Results Hemoglobin A1c Test 11/17/17 06:25 Range/Units Estimated Average Glucose 171 mg/dl Hemoglobin A1c 7.6 H 4.5-5.6 % Medical Emergencies . Who to Call and When: Medical Emergencies: If at any time you feel your situation is an emergency, please call 911 immediately. . Non-Emergent Contact Non-Emergency issues call your: Primary Care Provider . Past History Medical & Surgical History: (1) Palliative care encounter (2) Leukocytosis (3) CKD (chronic kidney disease) stage 3, GFR 30-59 ml/min (4) Depression (5) Seizure disorder (6) DM type 2 (diabetes mellitus, type 2) (7) Vulvar malignant neoplasm (8) Abscess of right hip (9) Altered mental status (10) Hx of cataract surgery (11) Status post appendectomy (12) Status post cholecystectomy (13) History of total hip replacement (14) S/P tonsillectomy and adenoidectomy . "Provider Documentation" section prepared by Gema Mcdowell. . Legal Instruments Examiner Recommendations Legal Instruments Examiner Recommendations: Continue Wound VAC and care as per wound clinic recommendation. ID follow up as per wound clinc Core Measure Problem Core Measures: None <Electronically signed by Gema Mcdowell M.D.> Signed: 01/07/18 3071 Additional Copies To Vesta Vega M.D.
[2018-01-10] MEDS ORDERED: LEVE250T PO (09:19)
[2018-01-10] MEDS ORDERED: SENN-83 PO (09:19)
[2018-01-10] MEDS ORDERED: POLY335019 PO (09:19)
== END 2018-01-07 17:40 | DRG 463 ==
LOC: EDBD 14:20 → C.EDC 14:21 → C.MS4W 17:38 → UNDOADMIN 17:38 → EDBEDREQ 18:10 → ENRESERV 18:26
PROVIDERS: ADMIT Hospitalist; ATTEND Internal Medicine
PROC: 0JBR0ZZ Excision of Left Foot Subcutaneous Tissue and Fascia, Open Approach (ICD-10-PCS; principal; 2017-12-27)
DX: T84.51XA Infection and inflammatory reaction due to internal right hip prosthesis, initial encounter (principal); G93.41 Metabolic encephalopathy; L89.893 Pressure ulcer of other site, stage 3; I13.0 Hypertensive heart and chronic kidney disease with heart failure and stage 1 through stage 4 chronic kidney disease, or unspecified chronic kidney disease; I50.33 Acute on chronic diastolic (congestive) heart failure; L02.415 Cutaneous abscess of right lower limb; E46 Unspecified protein-calorie malnutrition; K62.5 Hemorrhage of anus and rectum; C51.9 Malignant neoplasm of vulva, unspecified; N18.3 Chronic kidney disease, stage 3 (moderate); E11.22 Type 2 diabetes mellitus with diabetic chronic kidney disease; E11.621 Type 2 diabetes mellitus with foot ulcer; F32.9 Major depressive disorder, single episode, unspecified; E78.5 Hyperlipidemia, unspecified; E87.6 Hypokalemia; F03.90 Unspecified dementia, unspecified severity, without behavioral disturbance, psychotic disturbance, mood disturbance, and anxiety; M81.0 Age-related osteoporosis without current pathological fracture; I73.9 Peripheral vascular disease, unspecified; R09.02 Hypoxemia; Z66 Do not resuscitate; Z79.4 Long term (current) use of insulin; Z79.82 Long term (current) use of aspirin; Z79.899 Other long term (current) drug therapy; Z86.73 Personal history of transient ischemic attack (TIA), and cerebral infarction without residual deficits; Z88.0 Allergy status to penicillin; Z88.1 Allergy status to other antibiotic agents; Z88.8 Allergy status to other drugs, medicaments and biological substances; Y83.1 Surgical operation with implant of artificial internal device as the cause of abnormal reaction of the patient, or of later complication, without mention of misadventure at the time of the procedure; Y79.2 Prosthetic and other implants, materials and accessory orthopedic devices associated with adverse incidents